=== PATIENT | male | born 1980 | race African-American/Black ===

== ENCOUNTER 2019-02-13 08:16 | Inpatient (IN) | payer OTHER, SELFPAY ==
--- NOTE | 2019-02-13 09:01 | EDPHYS ---
Physician Documentation [facility] Name: Abhinav John Age: 38 yrs Sex: Male : 1980 Arrival Date: 02/13/2019 Time: 08:18 Bed 14 Private MD: ED Physician Biju Garcia HPI: 02/13 08:54 This 38 yrs old Black Male presents to ER via Ambulatory with complaints of Abscess. yolette 08:54 The patient presents with an abscess of the left gluteus raul. Description: The yolette affected area is moderate sized, localized, draining, erythematous, fluctuant. Onset: The symptoms/episode began/occurred 3 day(s) ago. Possible cause(s): unknown. Associated signs and symptoms: Pertinent positives: discharge, drainage, swelling. Severity of symptoms: At their worst the symptoms were moderate. Historical: - Allergies: 08:27 No Known Allergies; hb - PMHx: 08:27 ESRD; HD M-W-F; hb - PSHx: 08:27 HD Fistula - RIGHT FA; hb - Immunization history:: Adult Immunizations up to date. - Social history:: Smoking status: Patient/guardian denies using tobacco. - Ebola Screening: : No symptoms or risks identified at this time. - Family history:: not pertinent. ROS: 08:54 Constitutional: Negative for fever, chills, and weight loss, Eyes: Negative for injury, yolette pain, redness, and discharge, ENT: Negative for injury, pain, and discharge, Neck: Negative for injury, pain, and swelling, Cardiovascular: Negative for chest pain, palpitations, and edema, Respiratory: Negative for shortness of breath, cough, wheezing, and pleuritic chest pain, Abdomen/GI: Negative for abdominal pain, nausea, vomiting, diarrhea, and constipation, Back: Negative for injury and pain, : Negative for injury, bleeding, discharge, and swelling, MS/Extremity: Negative for injury and deformity, Neuro: Negative for headache, weakness, numbness, tingling, and seizure, Psych: Negative for depression, anxiety, suicide ideation, homicidal ideation, and hallucinations, Allergy/Immunology: Negative for hives, rash, and allergies, Endocrine: Negative for neck swelling, polydipsia, polyuria, polyphagia, and marked weight changes, Hematologic/Lymphatic: Negative for swollen nodes, abnormal bleeding, and unusual bruising. 08:54 Skin: Positive for cellulitis, swelling, of the left gluteus raul. Exam: 08:54 Constitutional: This is a well developed, well nourished patient who is awake, alert, yolette and in no acute distress. Head/Face: Normocephalic, atraumatic. Eyes: Pupils equal round and reactive to light, extra-ocular motions intact. Lids and lashes normal. Conjunctiva and sclera are non-icteric and not injected. Cornea within normal limits. Periorbital areas with no swelling, redness, or edema. ENT: Nares patent. No nasal discharge, no septal abnormalities noted. Tympanic membranes are normal and external auditory canals are clear. Oropharynx with no redness, swelling, or masses, exudates, or evidence of obstruction, uvula midline. Mucous membranes moist. Neck: Trachea midline, no thyromegaly or masses palpated, and no cervical lymphadenopathy. Supple, full range of motion without nuchal rigidity, or vertebral point tenderness. No Meningismus. Chest/axilla: Normal chest wall appearance and motion. Nontender with no deformity. No lesions are appreciated. Cardiovascular: Regular rate and rhythm with a normal S1 and S2. No gallops, murmurs, or rubs. Normal PMI, no JVD. No pulse deficits. Respiratory: Lungs have equal breath sounds bilaterally, clear to auscultation and percussion. No rales, rhonchi or wheezes noted. No increased work of breathing, no retractions or nasal flaring. Abdomen/GI: Soft, non-tender, with normal bowel sounds. No distension or tympany. No guarding or rebound. No evidence of tenderness throughout. Back: No spinal tenderness. No costovertebral tenderness. Full range of motion. Male : Normal genitalia with no discharge or lesions. MS/ Extremity: Pulses equal, no cyanosis. Neurovascular intact. Full, normal range of motion. Neuro: Awake and alert, GCS 15, oriented to person, place, time, and situation. Cranial nerves II-XII grossly intact. Motor strength 5/5 in all extremities. Sensory grossly intact. Cerebellar exam normal. Normal gait. Psych: Awake, alert, with orientation to person, place and time. Behavior, mood, and affect are within normal limits. 08:54 Musculoskeletal/extremity: ROM: full active range of motion, full passive range of motion, Circulation is intact in all extremities. Compartment Syndrome exam of affected extremity: is normal. DVT Exam: No signs of deep vein thrombosis. no pain, no swelling, no tenderness, negative Homans' sign noted on exam, no appreciated bluish discoloration, no erythema, no increased warmth, av fistula right upper extremity. 08:54 Skin: abscess, that is moderate sized, cellulitis, that is mild, that is moderate, induration, that is moderate is noted. Vital Signs: 08:24 BP 118 / 86; Pulse 121; Resp 16; Temp 96.8(TE); Pulse Ox 98% on R/A; Pain 8/10; hb 12:00 BP 128 / 92; Pulse 91; Resp 16; Temp 97.9; Pulse Ox 100% on R/A; Pain 8/10; sg MDM: 08:28 [facility] 09[facility]01 Data reviewed: vital signs, nurses notes, lab test result(s), EKG, radiologic studies, yolette plain films. 02/13 08:53 Order name: Basic Metabolic Panel; Complete Time: 11:28 [facility] 02/13 08:53 Order name: CBC with Diff; Complete Time: 11:28 [facility] 02/13 08:53 Order name: LFT's; Complete Time: 11:28 [facility] 02/13 08:53 Order name: Magnesium; Complete Time: 11:28 [facility] 02/13 08:53 Order name: NT PRO-BNP; Complete Time: 11:28 [facility] 02/13 08:53 Order name: PT-INR; Complete Time: 11:28 [facility] 02/13 08:53 Order name: Troponin (emerg Dept Use Only); Complete Time: 11:28 [facility] 02/13 08:53 Order name: XRAY Chest (1 view); Complete Time: 11:28 [facility] 02/13 08:53 Order name: Wound Culture [facility] 02/13 09:10 Order name: Blood Culture Adult (2) 02/13 09:10 Order name: Lactate; Complete Time: 11:28 02/13 09:10 Order name: Procalcitonin; Complete Time: 11:28 02/13 08:53 Order name: EKG; Complete Time: 08:54 [facility] 02/13 08:53 Order name: Cardiac monitoring; Complete Time: 09:11 [facility] 02/13 08:53 Order name: EKG - Nurse/Tech; Complete Time: 09:11 [facility] 02/13 08:53 Order name: IV Saline Lock; Complete Time: 09:12 [facility] 02/13 08:53 Order name: Labs collected and sent; Complete Time: 09:12 [facility] 02/13 08:53 Order name: O2 Per Protocol; Complete Time: 09:12 [facility] 02/13 08:53 Order name: O2 Sat Monitoring; Complete Time: 09: [facility] 02/13 09:17 Order name: CONS Physician Consult EDMS Administered Medications: 09:40 Drug: NS 0.9% 1000 ml Route: IV; Rate: 75 ml/hr; Site: left antecubital; sg 09:40 Drug: Zosyn 3.375 grams Route: IVPB; Infused Over: 60 mins; Site: left antecubital; sg 11:45 Drug: vancoMYCIN 1 grams Route: IVPB; Infused Over: 2 hrs; Site: left antecubital; sg Disposition: 02/13/19 09:00 Hospitalization ordered by Ekaterina Dent for Inpatient Admission. Preliminary diagnosis are Cutaneous abscess of buttock, Fever, unspecified, End stage renal disease, Type 1 diabetes mellitus, Anemia, unspecified, Elevated white blood cell count. - Bed requested for Telemetry/MedSurg (Inpatient). - Status is Inpatient Admission. sg - Condition is Fair. - Problem is new. - Symptoms have improved. UTI on Admission? No Signatures: Dispatcher [employer] EDND Emmanuelle Hernandez RN RN Valdo Sosa RN RN sg Anderson, Corey, MD MD cha Baxter, Heather, RN RN Corrections: (The following items were deleted from the chart) 11:29 09:00 Hospitalization Ordered by Ekaterina Dent MD for Inpatient Admission. Preliminary [facility] diagnosis is Cutaneous abscess of buttock; Fever, unspecified; End stage renal disease; Type 1 diabetes mellitus. Bed requested for Telemetry/MedSurg (Inpatient). Status is Inpatient Admission. Condition is Fair. Problem is new. Symptoms have improved. UTI on Admission? No. [facility] 11:40 11:29 02/13/2019 09:00 Hospitalization Ordered by Ekaterina Dent MD for Inpatient dw Admission. Preliminary diagnosis is Cutaneous abscess of buttock; Fever, unspecified; End stage renal disease; Type 1 diabetes mellitus; Anemia, unspecified; Elevated white blood cell count. Bed requested for Telemetry/MedSurg (Inpatient). Status is Inpatient Admission. Condition is Fair. Problem is new. Symptoms have improved. UTI on Admission? No. yolette 11:58 11:40 02/13/2019 09:00 Hospitalization Ordered by Ekaterina Dent MD for Inpatient dw Admission. Preliminary diagnosis is Cutaneous abscess of buttock; Fever, unspecified; End stage renal disease; Type 1 diabetes mellitus; Anemia, unspecified; Elevated white blood cell count. Bed requested for Telemetry/MedSurg (Inpatient). Status is Inpatient Admission. Condition is Fair. Problem is new. Symptoms have improved. UTI on Admission? No. dw 12:24 11:58 02/13/2019 09:00 Hospitalization Ordered by Ekaterina Dent MD for Inpatient sg Admission. Preliminary diagnosis is Cutaneous abscess of buttock; Fever, unspecified; End stage renal disease; Type 1 diabetes mellitus; Anemia, unspecified; Elevated white blood cell count. Bed requested for Telemetry/MedSurg (Inpatient). Status is Inpatient Admission. Condition is Fair. Problem is new. Symptoms have improved. UTI on Admission? No. dw
--- NOTE | 2019-02-13 09:01 | ER ---
Nurse's Notes [facility] Name: Abhinav John Age: 38 yrs Sex: Male : 1980 Arrival Date: 02/13/2019 Time: 08:18 Bed 14 Private MD: Diagnosis: Cutaneous abscess of buttock;Fever, unspecified;End stage renal disease;Type 1 diabetes mellitus;Anemia, unspecified;Elevated white blood cell count Presentation: 02/13 08:23 Presenting complaint: Abscess on left buttock x 4 days. Pt reports subjective fever and hb vomit x1 3 days ago. Transition of care: patient was not received from another setting of care. Onset of symptoms was February 09, 2019. Risk Assessment: Do you want to hurt yourself or someone else? Patient reports no desire to harm self or others. Care prior to arrival: None. 08:23 Method Of Arrival: Ambulatory hb 08:23 Acuity: KASEY 3 hb 08:35 Initial Sepsis Screen: Does the patient meet any 2 criteria? No. Patient's initial sg sepsis screen is negative. Does the patient have a suspected source of infection? Yes: Skin breakdown/wound. Historical: - Allergies: 08:27 No Known Allergies; hb - PMHx: 08:27 ESRD; HD M-W-F; hb - PSHx: 08:27 HD Fistula - RIGHT FA; hb - Immunization history:: Adult Immunizations up to date. - Social history:: Smoking status: Patient/guardian denies using tobacco. - Ebola Screening: : No symptoms or risks identified at this time. - Family history:: not pertinent. Screenin:35 Abuse screen: Denies threats or abuse. Denies injuries from another. Nutritional sg screening: No deficits noted. Tuberculosis screening: No symptoms or risk factors identified. Never had TB. Fall Risk None identified. Assessment: 08:30 General: Appears in no apparent distress. comfortable, well groomed, well developed, sg well nourished, Behavior is calm, cooperative, appropriate for age. Pain: Complains of pain in left gluteus raul Pain currently is 6 out of 10 on a pain scale. Neuro: Level of Consciousness is awake, alert, obeys commands, Oriented to person, place, time, situation, [employer] are equal bilaterally Moves all extremities. Full function Gait is steady, Speech is normal, Facial symmetry appears normal, Pupils are PERRLA. Cardiovascular: Capillary refill is brisk in bilateral fingers Patient's skin is warm and dry. Chest pain is denied. Respiratory: Airway is patent Respiratory effort is even, unlabored, Respiratory pattern is regular, symmetrical. GI: Abdomen is round non-distended, Reports normal bowel habits, tolerance of fluids, tolerance of food. : No signs and/or symptoms were reported regarding the genitourinary system. EENT: No signs and/or symptoms were reported regarding the EENT system. Derm: Skin is intact, is healthy with good turgor, Skin is dry, Skin is normal, Skin temperature is warm. Musculoskeletal: No signs and/or symptoms reported regarding the musculoskeletal system. 09:30 Reassessment: Patient appears in no apparent distress at this time. Patient and/or sg family updated on plan of care and expected duration. Pain level reassessed. Patient is alert, oriented x 3, equal unlabored respirations, skin warm/dry/pink. Patient states symptoms have not improved. 10:30 Reassessment: Patient appears in no apparent distress at this time. Patient and/or sg family updated on plan of care and expected duration. Pain level reassessed. Patient is alert, oriented x 3, equal unlabored respirations, skin warm/dry/pink. 11:30 Reassessment: Patient appears in no apparent distress at this time. Patient and/or sg family updated on plan of care and expected duration. Pain level reassessed. Patient is alert, oriented x 3, equal unlabored respirations, skin warm/dry/pink. Vital Signs: 08:24 BP 118 / 86; Pulse 121; Resp 16; Temp 96.8(TE); Pulse Ox 98% on R/A; Pain 8/10; hb 12:00 BP 128 / 92; Pulse 91; Resp 16; Temp 97.9; Pulse Ox 100% on R/A; Pain 8/10; sg ED Course: 08:18 Patient arrived in ED. as 08:24 Triage completed. hb 08:25 Arm band placed on. hb 08:28 Valdo Sosa, RN is Primary Nurse. sg 08:28 Biju Garcia MD is Attending Physician. yolette 08:35 Patient has correct armband on for positive identification. Bed in low position. Call sg light in reach. Side rails up X2. manager monitoring on. Pulse ox on. NIBP on. Warm blanket given. Head of bed elevated. 08:57 Ekaterina Dent MD is Hospitalizing Provider. [facility] 09:00 Initial lab(s) drawn, by co, sent to lab. First set of blood cultures drawn. Inserted iw saline lock: 20 gauge in left antecubital area, using aseptic technique. Blood collected. 09:31 XRAY Chest (1 view) In Process Unspecified. EDMS 09:54 Notified ED physician of a critical lab result(s). CRE 16.8. dm5 09:57 EKG done, by avionics systems technician. reviewed by Biju Garcia MD. dt2 12:18 No provider procedures requiring assistance completed. Patient admitted, IV remains in sg place. intact, No redness/swelling at site. Administered Medications: 09:40 Drug: NS 0.9% 1000 ml Route: IV; Rate: 75 ml/hr; Site: left antecubital; sg 09:40 Drug: Zosyn 3.375 grams Route: IVPB; Infused Over: 60 mins; Site: left antecubital; sg 11:45 Drug: vancoMYCIN 1 grams Route: IVPB; Infused Over: 2 hrs; Site: left antecubital; sg Outcome: 09:00 Decision to Hospitalize by Provider. yolette 12:18 Admitted to Med/surg accompanied by tech, via wheelchair, with chart, Report called to joseph Winkler RN 12:18 Condition: stable 12:18 Instructed on the need for admit, safety practices, Demonstrated understanding of follow-up care, wound care. 12:24 Patient left the ED. sg Signatures: Dispatcher [employer] AYDEWV Joyce Reyes, DOMINIQUE FOX dmValdo Matta, RN Biju Mccloud MD MD cha Martinez, Amelia as Williams, Irene, Rubi Bedoya RN, RN RN hb Teague, Danielle dt2
[2019-02-13 09:32] LABS: Absolute Lymphocytes (CBC) 0.8 K/uL (0.7-4.9); Absolute Neutrophil 10.1 K/uL (1.8-8.0); Basophils % 1.1 % (0-1.3); Eosinophils % 2.8 % (0-4.4); Hematocrit 31.5 % (39.6-49.0); Lymphocytes % 6.3 % (15.3-44.8); MPV 7.5 fL (7.6-11.3); RBC Red Blood Cell Count 3.89 M/uL (4.33-5.43)
[2019-02-13 09:33] LABS: Protime INR 1.15
[2019-02-13] MEDS ORDERED: PIPER/TAZO/NS 3.375gm 3.375 GM/100 ML BAG ONE (09:42)
[2019-02-13] MEDS ORDERED: NA CHLORIDE 0.9% 1,000 ML ONE (09:42)
--- NOTE | 2019-02-13 09:45 | RAD REPORT ---
EXAM DESCRIPTION: Jordin Single View02/13/2019 9:31 am CLINICAL HISTORY: Cough COMPARISON: 2013 FINDINGS: The lungs appear clear of acute infiltrate. The heart is normal size IMPRESSION: No acute abnormalities displayed
[2019-02-13 09:52] LABS: ALT/SGPT 8 U/L (12-78); AST/SGOT 6 U/L (15-37); Albumin 2.9 g/dL (3.4-5.0); Alkaline Phosphatase 95 U/L (45-117); BUN Blood Urea Nitrogen 81 mg/dL (7-18); Bicarbonate 21 mmol/L (21-32); Bilirubin Direct < 0.1 mg/dL (0-0.2); Bilirubin Total 0.3 mg/dL (0.2-1.0); Glucose Level 269 mg/dL (74-106); Magnesium 2.4 mg/dL (1.8-2.4); NT PRO-BNP 6451 pg/mL (<125); Potassium 4.8 mmol/L (3.5-5.1); Sodium Level 132 mmol/L (136-145); Troponin (Emerg Dept Use Only) < 0.02 ng/mL (0.0-0.045)
[2019-02-13] MEDS ORDERED: VANCOMYCIN/NS 1 gm 1 GM/250 ML BAG IV ONE (10:00)
--- NOTE | 2019-02-13 12:16 | EKG ---
Test Date: 2019-02-13 Test Time: 09:15:28 Route Salesperson: ALESSANDRA MEASUREMENT RESULTS: Intervals: Rate: 89 AK: 160 QRSD: 80 QT: 356 QTc: 433 [place]: P: 54 AK: 160 QRS: -11 T: 51 INTERPRETIVE STATEMENTS: Normal sinus rhythm Normal ECG Compared to ECG 01/03/2014 08:25:59 T-wave abnormality no longer present Electronically Signed On 02-13-19 12:15:16 CDT by Jaron Ambriz
[2019-02-13] MEDS ORDERED: ONDANSETRON 4 MG/2 ML VIAL IV PRN (12:46)
[2019-02-13] MEDS ORDERED: VANCOMYCIN/NS 1 gm 1 GM/250 ML BAG IV SCH (14:00)
[2019-02-13] MEDS ORDERED: CHLORHEXIDINE GLUCO 4% 120 ML TOP SCH (15:00)
--- NOTE | 2019-02-13 15:24 | P.HP ---
Certification for Inpatient Patient admitted to: Inpatient With expected LOS: >2 Midnights Practitioner: I am a practitioner with admitting privileges, knowledge of patient current condition, hospital course, and medical plan of care. Services: Services provided to patient in accordance with Admission requirements found in Title 42 Section 412.3 of the Code of Federal Regulations Patient History Date of Service: 02/13/19 Reason for admission: Buttock abscess History of Present Illness: This is a 38-year-old male with history of ESRD on hemodialysis, current smoker , insulin-dependent diabetes mellitus who presented to the emergency room percutaneous buttock abscess. Per patient, he noticed this had started to pain on Wednesday of last week, progressively worsened. He then started feeling drainage from that area and the pain was unbearable, which brought him to the emergency room. He does state that he has had a similar abscess in the past, though not as bad. He endorses fevers on Wednesday with chills. Denies any chest pain, shortness of breath, headache, vision changes, other GI or complaints. In the ER, he was found to have a white count of 12.4, creatinine at 16.8 and Procalamine 0.59. Lactic acid was normal at 0.9 and other labs were unremarkable. He was given 1 dose of vancomycin in the ER. I was asked to admit the patient for buttock abscess and ESRD. At the time of my exam, patient was in mild to moderate amount of pain with the abscess, was hemodynamically stable, was alert oriented x3. Allergies No Known Allergies Allergy (Unverified 06/25/12 08:51) - Past Medical/Surgical History Has patient received pneumonia vaccine in the past: Yes Diabetic: Yes -: IDDM -: Kidney disease - Family History Father -: Hypertension, Diabetes Mother History Unknown: Yes - Social History Smoking Status: Current every day smoker Alcohol use: No CD- Drugs: No Caffeine use: No Place of Residence: Home Review of Systems 10-point ROS is otherwise unremarkable Physical Examination - Vital Signs Temperature: 96.8 F Blood Pressure: 118/86 Pulse: 121 Respirations: 16 - Physical Exam General: Alert, Oriented x3, Mild distress HEENT: Atraumatic, PERRLA, Mucous membr. moist/pink, EOMI, Sclerae nonicteric Neck: Supple, 2+ carotid pulse no bruit, No LAD, Without JVD or thyroid abnormality Respiratory: Clear to auscultation bilaterally, Normal air movement Cardiovascular: Regular rate/rhythm, Normal S1 S2 Gastrointestinal: Normal bowel sounds, No tenderness Musculoskeletal: No tenderness Integumentary: No rashes Neurological: Normal gait, Normal speech, Normal strength at 5/5 x4 extr, Normal tone, Normal affect Rectal: Tenderness, Other (Status is noted on the left, with drainage; tender) - Studies Laboratory Data (last 24 hrs) 02/13/19 09:00: PT 13.5 H, INR 1.15 02/13/19 09:00: WBC 12.4 H, Hgb 10.3 L, Hct 31.5 L, Plt Count 357 02/13/19 09:00: Sodium 132 L, Potassium 4.8, BUN 81 H, Creatinine 16.80 H*, Glucose 269 H, Magnesium 2.4, Total Bilirubin 0.3, AST 6 L, ALT 8 L, Alkaline Phosphatase 95 Assessment and Plan - Problems (Diagnosis) (1) Cutaneous abscess of buttock Current Visit: Yes Status: Acute (2) ESRD (end stage renal disease) Current Visit: Yes Status: Chronic (3) Anemia Current Visit: Yes Status: Chronic Qualifiers: Anemia type: due to chronic kidney disease Chronic kidney disease stage: on chronic dialysis Qualified Code(s): N18.6 - End stage renal disease; D63.1 - Anemia in chronic kidney disease; Z99.2 - Dependence on renal dialysis (4) Leukocytosis Current Visit: Yes Status: Acute Qualifiers: Leukocytosis type: unspecified Qualified Code(s): D72.829 - Elevated white blood cell count, unspecified (5) Diabetes mellitus Current Visit: Yes Status: Chronic Qualifiers: Diabetes mellitus type: type 2 Diabetes mellitus alf insulin use: with alf use Diabetes mellitus complication status: with hyperglycemia Qualified Code(s): E11.65 - Type 2 diabetes mellitus with hyperglycemia; Z79.4 - supervisor intermediates (current) use of insulin (6) Hypertension Current Visit: Yes Status: Chronic Qualifiers: Hypertension type: essential hypertension Qualified Code(s): I10 - Essential (primary) hypertension (7) Morbid obesity Current Visit: Yes Status: Chronic - Plan This is a 38-year-old male with: Cutaneous buttock abscess Leukocytosis Tachycardia Start IV vancomycin, pharmacy to dose ren[place]. Dr. Keys, general surgery consulted Pain control Keep NPO after midnight for possible surgical intervention No evidence of sepsis this time. Will continue to monitor for sepsis ESRD on hemodialysis Wednesday, Wednesday, Wednesday Nephrology, Dr. Jameson consulted Patient schedule is Wednesday, Wednesday, Wednesday. He is due for dialysis today. Dialysis per nephrology Anemia, likely anemia of chronic disease H&H stable No evidence of acute bleeding at this time. Will continue to monitor H&H Insulin-dependent diabetes mellitus, type 2 With hyperglycemia Will restart home medications as tolerated He will need strict blood sugar control Hypertension Will restart home medications as tolerated Morbid obesity, BMI 36.3 DVT prophylaxis: Hold for possible surgical intervention tomorrow GI prophylaxis: None Diet: Renal diet, NPO after midnight Disposition: Admit to floor with tele. Pending symptomatic improvement and possible surgical intervention. Discharge Plan: Home - Advance Directives Does patient have a Living Will: No Does patient have a Durable POA for Healthcare: No Time Spent Managing Pts Care (In Minutes): 55
[2019-02-13] MEDS: HYDROCODONE/APAP 5/325 MG TAB PO PRN ×2 (16:26→22:20)
[2019-02-13] MEDS: INSULIN -REGULAR HUMAN 50 UNIT/0.5 ML ML SQ SCH ×2 (16:51→21:00)
--- NOTE | 2019-02-13 19:48 | CON ---
Date of Consultation: 02/13/2019 Reason: Left buttock abscess. History Of Present Illness: The patient is 38-year-old gentleman with end-stage renal disease, who p resents to the emergency room today with approximately 5-day history of left buttock swelling, pain, minimal discharge. He was seen in dialysis for his Wednesday dialysis and he was advised to go to the e mergency room, because he had fever then and he stated that he was feeling okay so he did not go. Th e patient currently is complaining of pain, drainage, swelling. No sore throat, runny nose, cough, h eadaches, or dizziness. No chest pain. Review of Systems: Otherwise unremarkable. Past Medical History: Significant for end-stage renal disease. Past Surgical History: Significant for AV fistula. Allergies: NO ALLERGIES. Social History: He does not smoke. Drinks occasionally. Family History: Noncontributory. Physical Examination: Vital signs: He is tachycardic. Pulse rate is 121, however his temperature 96.8. The remainder of his vital signs are stable. General: He is awake, alert, and oriented x3. Head and Neck: Cranial nerves 2 through 12 are grossly within normal. No neck masses. No JVD. Thr oat clear. Neck is supple. Chest: Clear. Heart: S1 and S2. Abdomen: Soft. Extremities: Neurovascularly intact. Neuro: Nonfocal. Skin: The left buttock region, there is a large approximately 15 x 8 cm area of erythema, warmth, ed deion. There is developing central fluctuance with a small opening and minimal discharge. Cultures resendez ve been done in the ER. There is tenderness, redness, warmth. Laboratory Data: White count is 12.4 with a left shift. INR is 1.15. Chemistry reviewed, his proca lcitonin is 9.59; however, his lactic acid is 0.9. His BUN and creatinine are 81 and 16.8 and potass ium is 4.8. His CO2 is 21. Assessment: A 38-year-old gentleman with multiple medical problems with abscess and cellulitis of th e left buttock. Recommendations: We will take the patient to the OR for incision, drainage, and debridement. The pa tient understands the risks, benefits, and alternatives and agrees to procedure. /MODL Voice ID: [id number] Report ID: [id number]
[2019-02-13] MEDS: MUPIROCIN 2% OINT 22GM TUBE TOP SCH (22:26)
--- NOTE | 2019-02-14 04:19 | PN ---
Date of Progress Note: 02/13/2019 Chief Complaint: End-stage renal disease, on dialysis. Subjective: The patient has been dialyzed 3 times per week on Wednesday, Wednesday, and Wednesday. He cam e to the hospital because of fever. He was found to have lower back abscess, gluteal abscess. A anita gical consultation was obtained for incision and drainage. He has multiple medical problems includin g history of insulin-dependent diabetes mellitus, history of heavy tobacco usage, hypertension. Today, the patient denies chest pain, palpitation. ER workup showed elevated leukocytosis. Procalci tonin was 0.59. The patient was given vancomycin 1 g and is to have debridement of the buttock absce ss. Review of Systems: Constitutional: Denies syncope, has fever. Eyes: Denies vision changes. Ears, Nose, Mouth, and Throat: Denies sore throat, earache. Respiratory: Denies PND, orthopnea. Cardiovascular: Denies chest pain, palpitation. GI: Denies nausea, vomiting. : Denies dysuria, hematuria. Musculoskeletal: Denies muscle aches or joint swelling. All other systems reviewed and all are negative. Past Medical History: Diabetes mellitus, end-stage renal disease, anemia, CKD, renal osteodystrophy, hypertension, diabetic neuropathy and nephropathy. Family History: Father; diabetes, hypertension. Mother; hypertension. Social History: Denies tobacco, alcohol, or illicit drugs. Physical Examination: Vital Signs: Temperature is 96.8, blood pressure 118/86, heart rate 119, and respiratory rate 16. General: The patient is awake, alert, and oriented, not in acute distress. Eyes: Anicteric sclerae. EOMI. Ears, Nose, Mouth and Throat: Oral mucosa moist. No pallor. Neck: Supple. No JVD. No bruits. Lungs: Clear to auscultation bilaterally. No rhonchi. No wheezing. Heart: S1, S2. Abdomen: Soft. Benign, nontender. Extremities: Slight edema. Laboratory Data: WBC 12.4, hemoglobin 10.3, hematocrit 31.5, and platelet count 357,000. Sodium 132 , potassium 4.8, BUN 81, and creatinine 16.8. Impression And Plan: 1.End-stage renal disease. Continue dialysis 3 times per week. Next dialysis on Wednesday. Today, he had dialysis with ultrafiltration. Blood pressure was stable during dialysis. 2.Anemia in CKD. Continue YOLANDE. Monitor hemoglobin level. 3.Leukocytosis. Continue broad-spectrum antibiotics. Surgical consultation is obtained for incisio n and drainage. 4.Cutaneous abscess of the buttock. Continue treatment with antibiotics and wound care. UMBERTO/BENY Voice ID: [id number] Report ID: [id number]
[2019-02-14] MEDS: HYDROCODONE/APAP 5/325 MG TAB PO PRN ×4 (04:26→23:55)
[2019-02-14 06:01] LABS: Absolute Lymphocytes (CBC) 0.8 K/uL (0.7-4.9); Absolute Monocytes 0.8 K/uL (0.1-1.3); Absolute Neutrophil 7.1 K/uL (1.8-8.0); Basophils % 0.9 % (0-1.3); Eosinophils % 3.1 % (0-4.4); Hematocrit 29.5 % (39.6-49.0); Lymphocytes % 9.2 % (15.3-44.8); MPV 6.6 fL (7.6-11.3); Monocytes % 8.6 % (3.3-12.3); RBC Red Blood Cell Count 3.68 M/uL (4.33-5.43)
[2019-02-14 06:06] LABS: AST/SGOT 4 U/L (15-37); Albumin 2.7 g/dL (3.4-5.0); Alkaline Phosphatase 78 U/L (45-117); BUN Blood Urea Nitrogen 49 mg/dL (7-18); Bicarbonate 25 mmol/L (21-32); Bilirubin Total 0.3 mg/dL (0.2-1.0); Glucose Level 202 mg/dL (74-106); Potassium 4.1 mmol/L (3.5-5.1); Protein, Total 7.7 g/dL (6.4-8.2); Sodium Level 134 mmol/L (136-145)
[2019-02-14 06:11] LABS: ALT/SGPT < 6 U/L (12-78)
[2019-02-14] MEDS: INSULIN -REGULAR HUMAN 50 UNIT/0.5 ML ML SQ SCH ×4 (08:37→21:12)
[2019-02-14] MEDS: ENOXAPARIN 30 MG/0.3 ML SQ SCH (08:37)
[2019-02-14] MEDS: MUPIROCIN 2% OINT 22GM TUBE TOP SCH ×2 (08:38→20:54)
--- NOTE | 2019-02-14 12:49 | P.PN ---
Subjective Date of Service: 02/14/19 Chief Complaint: Buttock abscess Subjective: No new changes pt with ESRD , presented for Gluteal abscess scheduled for I& D today will resume epo monitor Vanc level Physical Examination - Vital Signs Temperature: 98 F Blood Pressure: 135/77 Pulse: 91 Respirations: 20 Pulse Ox (%): 98 - Physical Exam General: In no apparent distress, Oriented x3 HEENT: Atraumatic, Normocephalic Neck: Supple, Without JVD or thyroid abnormality Respiratory: Clear to auscultation bilaterally, Normal air movement Cardiovascular: No edema, Normal pulses, Regular rate/rhythm, Normal S1 S2 Gastrointestinal: Normal bowel sounds Integumentary: No rashes Assessment And Plan - Current Problems (Diagnosis) (1) Cutaneous abscess of buttock Current Visit: Yes Status: Acute (2) Diabetes mellitus Current Visit: Yes Status: Chronic Qualifiers: Diabetes mellitus type: type 2 Diabetes mellitus mcfp insulin use: with mcfp use Diabetes mellitus complication status: with hyperglycemia Qualified Code(s): E11.65 - Type 2 diabetes mellitus with hyperglycemia; Z79.4 - MCFP (current) use of insulin (3) ESRD (end stage renal disease) Current Visit: Yes Status: Chronic - Plan Impression And Plan: ESRD MWF via Rt AVF HD MWF renal dose meds Anemia of CKD and active inflammation will start YOLANDE Gluteal abscess plan for I&D today DM as per PCP HTN controlled MBD hold binders if npo
[2019-02-14] MEDS ORDERED: GLUCAGON 1 MG/VIAL IM PRN (14:34)
[2019-02-14] MEDS ORDERED: NA CHLORIDE 0.9% 500 ML ONE (14:34)
[2019-02-14] MEDS ORDERED: D50W 25 GM/50 ML SYRINGE IV PRN (14:34)
[2019-02-14] MEDS ORDERED: BUPIVACAINE 0.5% PF 10 ML VIAL ONE (16:43)
[2019-02-14] MEDS ORDERED: FENTANYL CITR 100 MCG/2 ML ONE ×2 (16:45→17:22)
[2019-02-14] MEDS ORDERED: LIDOCAINE 1% MPF 5 ML VIAL ONE (16:45)
[2019-02-14] MEDS ORDERED: MIDAZOLAM HCL 2 MG/2 ML INJ ONE (16:45)
[2019-02-14] MEDS ORDERED: PROPOFOL 200 MG/20 ML VIAL IV ONE (16:45)
[2019-02-14] MEDS ORDERED: KETOROLAC 30 MG/ML INJ ONE (17:23)
[2019-02-14] MEDS ORDERED: ONDANSETRON 4 MG/2 ML VIAL ONE (17:23)
[2019-02-14] MEDS ORDERED: CEFAZOLIN SODIUM 1 GM/VIAL ONE (17:25)
[2019-02-14] MEDS ORDERED: NS 0.9% VIAL 10 ML ONE (17:25)
--- NOTE | 2019-02-14 17:33 | P.OP ---
Preoperative diagnosis: Left Buttock abscess Postoperative diagnosis: same Primary procedure: I and D and Debridement Left Buttock Abscess Anesthesia: gen Estimated blood loss: min Specimen: Pus Findings: as above Complications: None Transferred to: Recovery Room Condition: Good
[2019-02-14] MEDS ORDERED: HYDROMORPHONE HCL 1 MG/ML INJ IV PRN (17:52)
--- NOTE | 2019-02-14 19:10 | PN ---
Date of Progress Note: 02/14/2019 Subjective: The patient seen and examined. Chart reviewed and case discussed with RN and Dr. Keys. The patient awaiting I and D for abscess. Still having some pain. Medications: List reviewed. Physical Examination: Vital Signs: Temperature 98, heart rate 91, blood pressure 135/77, respirations 20, O2 98% on room air. General: Awake, alert and oriented x3, ill-appearing obese male. BMI 36. CV: S1, S2. Regular rate and rhythm. Peripheral pulse is present. Respiratory: Moving air well bilaterally. No wheezing or stridor. Gastrointestinal: Abdomen is soft, nontender, nondistended. Positive bowel sounds. Extremities: No clubbing, cyanosis, or edema. Neurologic: Nonfocal. Skin: Gluteal abscess on the left. Laboratory Data: Sodium 134, potassium 4.1, chloride 96, CO2 25, BUN 49, creatinine 12.1, glucose 202, calcium 8.5, AST 4, ALT less than 6, albumin 2.7. WBC 9.1, H and H 9.8 and 29.5, platelets 281. Wound cultures pending at this time. Blood cultures show no growth to date. Assessment And Plan: A 38-year-old male with: 1. Cutaneous abscess of the buttock, left gluteal region. We will continue with vancomycin. Continue pain control. The patient going for I and D today by Dr. Keys. 2. End-stage renal disease, on hemodialysis Wednesday, Wednesday, Wednesday. The patient has been dialyzed yesterday. Appreciate Nephrology input. 3. Anemia of chronic disease. We will monitor H and H and transfuse as needed secondary to chronic kidney disease, on dialysis. 4. Diabetes mellitus type 2 with hyperglycemia with long-term use of insulin. We will continue sliding scale insulin and monitor blood glucose levels. 5. Essential hypertension, stable. 6. Morbid obesity. BMI 36.3. Plan: Continue antibiotics. Follow up on cultures. Anticipate surgery today. /BENY Voice ID: [id number] Report ID: [id number] MTDD
--- NOTE | 2019-02-15 02:40 | OP ---
Date of Procedure: 02/14/2019 Surgeon: Michael Keys MD Preoperative Diagnosis: Left buttock abscess. Postoperative Diagnosis: Left buttock abscess. Procedure: Incision and drainage and debridement of left buttock abscess. Estimated Blood Loss: Minimal. Specimen: Pus. Findings: As above. Anesthesia: General. Complications: None. Disposition: The patient tolerated the procedure well in stable condition, taken to recovery in good general condition. Description Of Procedure: The patient was brought to the OR and placed in supine position. General anesthesia was begun. The patient was placed in the right lateral position, prepped and draped in ua sterile fashion. Marcaine 0.5% was infiltrated locally. A 15-blade was used to make approximate ly a 6-cm incision over the most fluctuant part of the abscess. Subcutaneous tissue was divided. De ep to the subcutaneous tissue, pus under pressure was evacuated. Loculation was broken up. Necrotic tissue was debrided. It was extended deep into the deep subcutaneous tissue, both inferiorly superi carson, laterally, and medially. After adequate dissection was done, wound was irrigated. Bleeding wa s controlled cautery. Wet-to-dry normal saline dressing change was applied. The patient tolerated the procedure in stable condition and taken to re covery in good general condition. /MODL Voice ID: [id number] Report ID: [id number]
[2019-02-15] MEDS: HYDROCODONE/APAP 5/325 MG TAB PO PRN ×3 (05:58→20:45)
[2019-02-15 06:40] LABS: Absolute Lymphocytes (CBC) 1.2 K/uL (0.7-4.9); Absolute Monocytes 0.7 K/uL (0.1-1.3); Absolute Neutrophil 5.7 K/uL (1.8-8.0); Basophils % 1.1 % (0-1.3); Eosinophils % 4.3 % (0-4.4); Hematocrit 29.4 % (39.6-49.0); Lymphocytes % 14.5 % (15.3-44.8); MPV 6.9 fL (7.6-11.3); Monocytes % 9.1 % (3.3-12.3); RBC Red Blood Cell Count 3.66 M/uL (4.33-5.43)
[2019-02-15] MEDS ORDERED: PANTOPRAZOLE 40MG TABLET PO ONE (07:00)
[2019-02-15 08:11] LABS: Phosphorus 8.3 mg/dL (2.5-4.9); Potassium 4.8 mmol/L (3.5-5.1)
[2019-02-15] MEDS: ENOXAPARIN 30 MG/0.3 ML SQ SCH (08:33)
[2019-02-15] MEDS: MUPIROCIN 2% OINT 22GM TUBE TOP SCH ×2 (08:33→20:50)
[2019-02-15] MEDS: INSULIN -REGULAR HUMAN 50 UNIT/0.5 ML ML SQ SCH ×4 (08:34→20:58)
[2019-02-15] MEDS ORDERED: EPOETIN ALFA 10,000 UNIT/ML VIAL SQ SCH (10:00)
[2019-02-15] MEDS ORDERED: CEFEPIME 1 GM/VIAL IV SCH (13:50)
[2019-02-15 15:00] VITALS: BMI 35.8
--- NOTE | 2019-02-15 16:22 | PN ---
Date of Progress Note: 02/15/2019 Subjective: The patient was admitted with buttock abscess. Physical Examination: Vital Signs: Blood pressure 125/71, pulse of 80. Chest: Clear to auscultation. Heart: S1-S2 regular. Abdomen: Soft, nontender. Extremities: Trace edema. Laboratory Data: H and H 9.6/29.4. Sodium 134, potassium 4.8, bicarb 25, BUN 64, creatinine 14, ai cium 9, phosphorus 8.3. Current Medications: The patient on include, 1.Lovenox. 2.Epogen. 3.Zofran. 4.Pantoprazole. Assessment And Plan: 1.End-stage renal disease. We will maintain the patient on dialysis Wednesday, Wednesday, and Wednesday. 2.Secondary hyperparathyroidism. I am going to resume the patient on Renvela. 3.Anemia of chronic kidney disease. We will resume Epogen for the patient. Next buttocks abscess. Continue current medication. Follow up with primary. We will follow up culture. 4.Diabetes, as by primary. HILARIO/BENY Voice ID: [id number] Report ID: [id number]
--- NOTE | 2019-02-15 16:28 | PN ---
Date of Progress Note: 02/15/2019 Subjective: Patient is awake, alert, feels better. Vital signs stable, afebrile. White count is 8. 1. The left shift has improved and his cultures are pending as far as identification but they are gr owing gram-negative rods and first culture that was done on the and the OR cultures are still pe nding. Dressing is clean, dry, intact. Assessment: Status post incision and drainage, left buttock abscess. Recommendations: Continue IV antibiotics. Await cultures and adjust antibiotics accordingly. Wound care as ordered. Upon discharge, patient can follow up [facility]. /MODL Voice ID: [id number] Report ID: [id number]
--- NOTE | 2019-02-15 17:22 | PN ---
Subjective: The patient is seen and examined, chart reviewed and case discussed with Dr. Keys. The patient is doing well. His pain is well controlled. Medications: List reviewed. Objective: Vital Signs: Temperature 98, heart rate 87 blood pressure 136/73, respirations 20, O2 97 % on room air. GENERAL: Awake, alert, oriented x3. No acute distress. Obese male. BMI 35. CV: S1, S2. Regular rate and rhythm. Peripheral pulses present. Respiratory: moving air well bilaterally. No wheezing or stridor. Gastrointestinal: Abdomen is soft, nontender, nondistended. Positive bowel sounds. Extremities: No clubbing, cyanosis, or edema. Neurologic: Nonfocal. SKIN: Gluteal abscess, status post I and D, bandaged. Laboratory Data: Sodium 134, potassium 4.8, chloride 96, CO2 25, BUN 64, creatinine 14.8, glucose 16 4, calcium 9, phosphorus 8.3. WBC 8.1, H and H 9.6, 29.4, platelets 326, neutrophils 71%. Blood cul ture show no growth to date. Wound culture from the abscess showing 2+ gram-negative rods, from body fluid is pending. Assessment: A 38-year-old male with: 1.Cutaneous abscess of the buttock, left gluteal region, status post incision and drainage. We will continue broad-spectrum intravenous antibiotics. The patient is on vancomycin. Cultures growing gr am-negative rods from the wound. We will add gram-negative coverage. 2.End-stage renal disease, on hemodialysis Wednesday, Wednesday, Wednesday. Nephrology on board. The pat ient to be dialyzed again today. 3.Anemia of chronic disease. Monitor H and H and transfuse as needed. Hemoglobin stable around 9.6 . Likely due to chronic kidney disease, on dialysis. 4.Diabetes mellitus type 2 with hyperglycemia with long-term use of insulin. We will continue slidi ng scale insulin and monitor Accu-Cheks. 5.Essential hypertension, stable, on home medications. 6.Morbid obesity. Body mass index 36. Plan: We will adjust antibiotics, follow up on cultures. Discharge once ID and sensitivity availabl e. SA/MODL Voice ID: [id number] Report ID: [id number]
[2019-02-15] MEDS: SEVELAMER CARBONATE 800 MG TABLET PO SCH (17:45)
[2019-02-15] MEDS: CEFEPIME/SWI 1gm 10 ML IVP SCH (17:45)
[2019-02-16] MEDS: HYDROCODONE/APAP 5/325 MG TAB PO PRN ×2 (05:22→12:00)
[2019-02-16 06:03] LABS: Absolute Monocytes 0.7 K/uL (0.1-1.3); Absolute Neutrophil 4.2 K/uL (1.8-8.0); Basophils % 1.3 % (0-1.3); Eosinophils % 5.1 % (0-4.4); Hematocrit 28.5 % (39.6-49.0); Lymphocytes % 15.6 % (15.3-44.8); MPV 7.7 fL (7.6-11.3); Monocytes % 10.9 % (3.3-12.3); RBC Red Blood Cell Count 3.48 M/uL (4.33-5.43)
[2019-02-16] MEDS: INSULIN -REGULAR HUMAN 50 UNIT/0.5 ML ML SQ SCH ×2 (08:41→12:22)
[2019-02-16] MEDS: MUPIROCIN 2% OINT 22GM TUBE TOP SCH (08:41)
[2019-02-16] MEDS: CEFEPIME/SWI 1gm 10 ML IVP SCH (08:42)
[2019-02-16] MEDS: ENOXAPARIN 30 MG/0.3 ML SQ SCH (08:42)
[2019-02-16] MEDS: SEVELAMER CARBONATE 800 MG TABLET PO SCH ×2 (08:42→12:22)
[2019-02-16 09:46] VITALS: O2SAT 99
[2019-02-16 14:58] VITALS: BP 140/66; TEMP 98.1
--- NOTE | 2019-02-16 18:56 | P.PN ---
Subjective Date of Service: 02/16/19 Chief Complaint: Buttock abscess Subjective: No new changes pt with ESRD , presented for Gluteal abscess S/P I&D wound culture Morganella sensitive to Levofloxacin cleared for discharge from nephrology point of view Physical Examination - Vital Signs Temperature: 98.1 F Blood Pressure: 140/66 Pulse: 91 Respirations: 17 Pulse Ox (%): 100 - Physical Exam General: In no apparent distress, Oriented x3 HEENT: Atraumatic Neck: Supple, JVD not distended, Without JVD or thyroid abnormality Respiratory: Clear to auscultation bilaterally Cardiovascular: No edema, Regular rate/rhythm, Normal S1 S2, No rubs, No murmurs Gastrointestinal: Normal bowel sounds, Soft and benign Assessment And Plan - Current Problems (Diagnosis) (1) Cutaneous abscess of buttock Status: Acute (2) Diabetes mellitus Status: Chronic Qualifiers: Diabetes mellitus type: type 2 Diabetes mellitus continuous churn buttermaker insulin use: with correction use Diabetes mellitus complication status: with hyperglycemia Qualified Code(s): E11.65 - Type 2 diabetes mellitus with hyperglycemia; Z79.4 - shelter (current) use of insulin (3) ESRD (end stage renal disease) Status: Chronic - Plan Impression And Plan: ESRD MWF via Rt AVF HD MWF renal dose meds Anemia of CKD and active inflammation On YOLANDE Gluteal abscess S/P I&D today wound culture Morganella sensitive to levofloxacin DM as per PCP HTN controlled MBD cont binders
--- NOTE | 2019-02-16 19:42 | PN ---
Date of Progress Note: 02/16/2019 Subjective: The patient is awake, alert. No complaint. Bowels are stable. Afebrile. Cultures reviewed, Morganella Morganii is growing. White count is normal. Wound is clean. Assessment: Status post I and D and debridement of left buttock abscess. Recommendations: The patient will be given vancomycin and either oral Cipro or Levaquin per the [facility] l service. Wound care is ordered. Follow up in the wound clinic in 1-2 weeks. SAIMA/BENY Voice ID: [id number] Report ID: [id number]
--- NOTE | 2019-02-17 01:58 | DS ---
Date of Discharge: 02/16/2019 Consultants: Dr. Jameson with Nephrology, Dr. Joy with Nephrology, Dr. Keys with General [facility]. Procedures: On 02/14/2019, I and D, debridement of left buttock abscess. Admitting Diagnoses: 1.Cutaneous abscess of the buttock. 2.End-stage renal disease, on hemodialysis. 3.Anemia due to chronic kidney disease, on dialysis. 4.Diabetes mellitus type 2 with long-term use of insulin with hyperglycemia. 5.Essential hypertension. 6.Obesity, BMI 35.5. Discharge Diagnoses: 1.Cutaneous abscess of the buttock, left gluteal region, status post I and D secondary to Morganella . 2.End-stage renal disease, on hemodialysis. 3.Anemia of chronic disease secondary to end-stage renal disease. 4.Diabetes mellitus type 2 with hyperglycemia with long-term use of insulin, stable. 5.Essential hypertension, stable. 6.Obesity, BMI 36. Hospital Course: The patient is a 38-year-old male on dialysis, has diabetes, comes in with a percut aneous buttock abscess. The patient was started on IV antibiotics. He did have an elevated white co unt. Procalcitonin was borderline. Cultures were obtained. Blood cultures remained negative. Nick jeffers wound culture from the abscess showed Morganella. Dr. Keys was consulted and the patient went for I and D and had significant improvement in his symptoms. White count was normalized. The patien t remained afebrile. We continued his dialysis. His mold press operator was also consulted. The patient d id well over the course of the hospital stay. His electrolytes remained stable. He was able to cont inue his dialysis. The patient was then cleared from a surgery standpoint and was sent home in a sta ble condition. Activity: As tolerated. Medications: As per medication reconciliation list. Finish off course of Levaquin for the abscess. Followup: Follow up with primary care physician in 2-3 days. Follow up with surgeon, Dr. Keys, in 10 days. Follow up with mold press operator, Dr. Jameson, in 2 weeks. Keep dialysis appointments as sched uled. Return to ER for worsening condition. Wet-to-dry dressings as per Dr. Keys's recommendations . Diet: Renal. Activity: As tolerated. Physical Examination: General: Awake, alert, oriented x3. No acute distress. Obese male. CV: S1, S2. Peripheral pulses present. Respiratory: Moving air well bilaterally. No wheezing. Gastrointestinal: Abdomen is soft, nontender, nondistended. Positive bowel sounds. Extremities: No clubbing, cyanosis, edema. Neurologic: Nonfocal. Skin: Left gluteal region wound clean, dry, intact. Total time spent discharging the patient was 35 minutes. /BENY Voice ID: [id number] Report ID: [id number]
[2019-02-17 05:29] LABS: HBsAG Nonreactive (Nonreactive)
== END 2019-02-16 15:16 | disposition home or self-care (01) | DRG 602 ==
LOC: ER 08:16 → ERHOLD 09:14 → 2ND 12:14
PROVIDERS: ADMIT Family Medicine; ATTEND Family Medicine
PROC: 5A1D70Z Performance of Urinary Filtration, Intermittent, Less than 6 Hours Per Day (ICD-10-PCS; 2019-02-13)
PROC: 0J990ZX Drainage of Buttock Subcutaneous Tissue and Fascia, Open Approach, Diagnostic (ICD-10-PCS; principal; 2019-02-14 12:30)
PROC: 5A1D70Z Performance of Urinary Filtration, Intermittent, Less than 6 Hours Per Day (ICD-10-PCS; 2019-02-15)
DX: L02.31 Cutaneous abscess of buttock (principal); N18.6 End stage renal disease; I12.0 Hypertensive chronic kidney disease with stage 5 chronic kidney disease or end stage renal disease; B96.89 Other specified bacterial agents as the cause of diseases classified elsewhere; E11.22 Type 2 diabetes mellitus with diabetic chronic kidney disease; E11.65 Type 2 diabetes mellitus with hyperglycemia; Z99.2 Dependence on renal dialysis; Z79.4 Long term (current) use of insulin; D63.1 Anemia in chronic kidney disease; E66.9 Obesity, unspecified; Z68.35 Body mass index [BMI] 35.0-35.9, adult
CPT/HCPCS: 36415; 71045; 80048; 80053; 80076; 82962; 83605; 83735; 83880; 84100; 84145; 84484; 85025; 85610; 86704; 86706; 86803; 87040; 87070; 87075; 87077; 87186; 87205; 87340; 90935; 93005; 94760; 96374; 96375; 99285; J0690; J0692; J1650; J2250; J2405; J2543; J2704; J3010; J3370; J7030; Q4081

== ENCOUNTER 2019-02-16 15:59 | Inpatient (IN) | payer OTHER, SELFPAY ==
--- NOTE | 2019-02-16 16:39 | EDPHYS ---
Physician Documentation [facility] Name: Abhinav John Age: 38 yrs Sex: Male : 1980 Arrival Date: 02/16/2019 Time: 16:07 Bed 5 Private MD: ED Physician Glynn Elizalde HPI: 02/16 16:30 This 38 yrs old Black Male presents to ER via Unassigned with complaints of Post jr8 Surgical Bleeding. 16:30 The affected area is on the buttocks. Patient stated that he was admitted for abscess jr8 of the left buttock. Was discharged today. Carey something wet going down his pants on the way home. Saw that it was blood. Made it home and was trying to control it there but stated that it was too much blood. Patient had bled through bandages that was placed upon arrival in ED. Historical: - Allergies: 16:32 No Known Allergies; ss - PMHx: 16:32 ESRD; HD M-W-F; ss - PSHx: 16:32 HD Fistula - RIGHT FA; I\T\D (R buttock); ss - Immunization history:: Adult Immunizations up to date. - Social history:: Smoking status: Patient uses tobacco products, smokes one-half pack cigarettes per day. - Ebola Screening: : Patient denies exposure to infectious person Patient denies travel to an Ebola-affected area in the 21 days before illness onset. ROS: 16:30 Eyes: Negative for injury, pain, redness, and discharge, ENT: Negative for injury, jr8 pain, and discharge, Neck: Negative for injury, pain, and swelling, Cardiovascular: Negative for chest pain, palpitations, and edema, Respiratory: Negative for shortness of breath, cough, wheezing, and pleuritic chest pain, Abdomen/GI: Negative for abdominal pain, nausea, vomiting, diarrhea, and constipation, Back: Negative for injury and pain, MS/Extremity: Negative for injury and deformity, Neuro: Negative for headache, weakness, numbness, tingling, and seizure. 16:30 Skin: Positive for open wound left buttock . Exam: 16:30 Eyes: Pupils equal round and reactive to light, extra-ocular motions intact. Lids and jr8 lashes normal. Conjunctiva and sclera are non-icteric and not injected. Cornea within normal limits. Periorbital areas with no swelling, redness, or edema. ENT: Nares patent. No nasal discharge, no septal abnormalities noted. Tympanic membranes are normal and external auditory canals are clear. Oropharynx with no redness, swelling, or masses, exudates, or evidence of obstruction, uvula midline. Mucous membranes moist. Neck: Trachea midline, no thyromegaly or masses palpated, and no cervical lymphadenopathy. Supple, full range of motion without nuchal rigidity, or vertebral point tenderness. No Meningismus. Cardiovascular: Regular rate and rhythm with a normal S1 and S2. No gallops, murmurs, or rubs. Normal PMI, no JVD. No pulse deficits. Respiratory: Lungs have equal breath sounds bilaterally, clear to auscultation and percussion. No rales, rhonchi or wheezes noted. No increased work of breathing, no retractions or nasal flaring. Abdomen/GI: Soft, non-tender, with normal bowel sounds. No distension or tympany. No guarding or rebound. No evidence of tenderness throughout. Back: No spinal tenderness. No costovertebral tenderness. Full range of motion. MS/ Extremity: Pulses equal, no cyanosis. Neurovascular intact. Full, normal range of motion. Neuro: Awake and alert, GCS 15, oriented to person, place, time, and situation. Cranial nerves II-XII grossly intact. Motor strength 5/5 in all extremities. Sensory grossly intact. Cerebellar exam normal. Normal gait. 16:30 Skin: Patient has approximately 5 cm surgical incision noted to left medial buttock down through the subcutaneous tissues. Slow constant bleeding noted. No arterial bleeding noted upon examination. Tissue otherwise healthy looking. No surrounding erythema noted . Vital Signs: 16:32 Resp 19; Weight 119.75 kg; Height 6 ft. 3 in. (190.50 cm); Pain 7/10; ss 16:33 BP 120 / 61; Pulse 89; Resp 18; Temp 98.6(O); Pulse Ox 100% on R/A; dh3 17:30 BP 122 / 62; Pulse 88; Resp 17; Pulse Ox 99% on R/A; sg 19:00 BP 132 / 74; Pulse 85; Resp 18; Pulse Ox 98% on R/A; Pain 0/10; aa1 19:49 BP 118 / 62; Pulse 83; Resp 16; Temp 98.5; Pulse Ox 96% on R/A; aa1 16:32 Body Mass Index 33.00 (119.75 kg, 190.50 cm) ss Procedures: 16:30 Performed Wound packing. Patient packed with sterile 4x4 gauze to control bleeding. jr8 Pressure dressing applied . MDM: 16:28 Patient medically screened. jr8 16:30 Data reviewed: vital signs, nurses notes, lab test result(s). Data interpreted: Pulse jr8 oximetry: on room air is 100 %. Interpretation: normal. Counseling: I had a detailed discussion with the patient and/or guardian regarding: the historical points, exam findings, and any diagnostic results supporting the discharge/admit diagnosis, lab results, the need for further work-up and treatment in the hospital. Physician consultation: Cesar Shetty MD was called at 16:37, was contacted at 16:37, regarding admission, to the telemetry unit. consult, patient's condition, and will see patient. ED course: Dr. Keys consulted and will see patient in the hospital. Will take him back to surgery tomorrow if bleeding controlled . 18:25 ED course: Reevaluated patient. No blood beyond bandage. Seems to be well controlled at [facility] this point. Will reevaluate again here in a bit before letting him go up to room . 02/16 16:23 Order name: CBC with Diff; Complete Time: 16:58 [facility] 02/16 16:23 Order name: T\T\S [facility] 02/16 16:23 Order name: Basic Metabolic Panel; Complete Time: 17:13 [facility] 02/16 16:23 Order name: IV; Complete Time: 16:35 [facility] 02/16 18:26 Order name: PT-INR [facility] 02/16 18:37 Order name: Protime (+INR); Complete Time: 18:40 EDMS Administered Medications: No medications were administered Disposition: 02/17 07:16 Co-signature as Attending Physician, Glynn Elizalde MD I agree with the assessment and kdr plan of care. Disposition: 02/16/19 16:38 Hospitalization ordered by Cesar Shetty for Observation. Preliminary diagnosis is Post surgical wound bleeding . - Bed requested for Telemetry/MedSurg (observation). - Status is Observation. aa1 - Condition is Fair. - Problem is new. - Symptoms have improved. UTI on Admission? No Signatures: Dispatcher [employer] EDMS Olimpia Luna RN RN aa1 Glynn Elizalde MD MD [facility] Sierra Amin RN RN Dom Luna PA PA jr8 Destin Arlen kj1 Corrections: (The following items were deleted from the chart) 02/16 18:25 16:38 Hospitalization Ordered by Cesar Shetty MD for Observation. Preliminary diagnosis kj1 is Post surgical wound bleeding . Bed requested for Telemetry/MedSurg (observation). Status is Observation. Condition is Fair. Problem is new. Symptoms have improved. UTI on Admission? No. jr8 19:54 18:25 02/16/2019 16:38 Hospitalization Ordered by Cesar Shetty MD for Observation. aa1 Preliminary diagnosis is Post surgical wound bleeding . Bed requested for Telemetry/MedSurg (observation). Status is Observation. Condition is Fair. Problem is new. Symptoms have improved. UTI on Admission? No. kj1
--- NOTE | 2019-02-16 16:39 | ER ---
Nurse's Notes [facility] Name: Abhinav John Age: 38 yrs Sex: Male : 1980 Arrival Date: 02/16/2019 Time: 16:07 Bed 5 Private MD: Diagnosis: Post surgical wound bleeding Presentation: 02/16 16:00 Presenting complaint: Patient states: Recently discharged from [facility] after I\\T\\D procedure. Pt reports that shortly after arriving home, he noticed heavy bleeding coming from his incision. Unknown amount at home, however patient described amount being "large". Transition of care: patient was not received from another setting of care. Onset of symptoms was February 16, 2019. Risk Assessment: Do you want to hurt yourself or someone else? Patient reports no desire to harm self or others. Initial Sepsis Screen: Does the patient have a suspected source of infection? No. Patient's initial sepsis screen is negative. Care prior to arrival: None. 16:00 Method Of Arrival: Ambulatory ss 16:00 Acuity: KASEY 1 ss 16:[address] Shetty notified that pt was back in the ED. I asked Dr. Shetty if he wanted to dm5 evaluate the pt since he had just been discharged or if he wanted the pt to be seen by the ED Physician. Dr. Shetty stated he wanted the pt to be seen by the ED Physician and the surgeon to be called. 16:[address] Keys notified that the pt was in the ED. dm5 Historical: - Allergies: 16:32 No Known Allergies; ss - PMHx: 16:32 ESRD; HD M-W-F; ss - PSHx: 16:32 HD Fistula - RIGHT FA; I\\T\\D (R buttock); ss - Immunization history:: Adult Immunizations up to date. - Social history:: Smoking status: Patient uses tobacco products, smokes one-half pack cigarettes per day. - Ebola Screening: : Patient denies exposure to infectious person Patient denies travel to an Ebola-affected area in the 21 days before illness onset. Screenin:41 Abuse screen: Denies threats or abuse. Denies injuries from another. Nutritional ss screening: No deficits noted. Tuberculosis screening: Never had TB. Assessment: 16:00 Reassessment: TOBY Reis, DOMINIQUE Lyle, Nicole, RN and Sierra, RN at bedside. Dom TOBY Luna attempting to locate bleeding vessel in incision. Direct Pressure applied which seems to cease bleeding effectively. Dr. Shetty and Dr. Keys notified by DOMINIQUE Cook. 16:15 Reassessment: Dr. Elizalde at bedside with TOBY Meza evaluating patient and ss discussing plan of care. Respirations remain even and unlabored. Bleeding controlled at this time. Pt is awake and alert. 16:40 General: Appears in no apparent distress. well developed, well nourished, clothing sg saturated with bright red blood, pt removed from clothing and cleaned, placed in clean gown. Behavior is cooperative, appropriate for age, quiet. Pain: Complains of pain in gluteal cleft Quality of pain is described as throbbing. Neuro: Level of Consciousness is awake, alert, obeys commands, Oriented to person, place, time, situation, Slitting Machine Operator are equal bilaterally Moves all extremities. Full function Gait is steady, Speech is normal, Facial symmetry appears normal, Pupils are PERRLA. Cardiovascular: Heart tones S1 S2 present Capillary refill is brisk in bilateral fingers Patient's skin is warm and dry. Chest pain is denied. Respiratory: Airway is patent Respiratory effort is even, unlabored, Respiratory pattern is regular, symmetrical. GI: Abdomen is round non-distended, Bowel sounds present X 4 quads. Reports tolerance of fluids, tolerance of food. : No signs and/or symptoms were reported regarding the genitourinary system. EENT: No signs and/or symptoms were reported regarding the EENT system. Derm: Skin is intact, is healthy with good turgor, Skin is dry, Skin is normal, Skin temperature is warm surgical wound noted to left gluteal fold, is bleeding at this time. Musculoskeletal: Capillary refill is brisk, in bilateral fingers. Range of motion: intact in all extremities, Swelling absent. 16:42 Reassessment: Patient appears in no apparent distress at this time. bleeding controlled sg at this time, pressure dressing remains in place, awaiting lab results at this time. 16:58 Reassessment: Patient appears in no apparent distress at this time. Patient and/or sg family updated on plan of care and expected duration. Pain level reassessed. Patient is alert, oriented x 3, equal unlabored respirations, skin warm/dry/pink. Dressing dry and intact. No active bleeding noted. 17:40 Reassessment: Patient appears in no apparent distress at this time. Patient and/or sg family updated on plan of care and expected duration. Pain level reassessed. awaiting a bed assignment at this time Patient states symptoms have improved. 18:28 Reassessment: Patient appears in no apparent distress at this time. Patient is alert, sg oriented x 3, equal unlabored respirations, skin warm/dry/pink. pt notified a bed assignment has been made, but will not be able to go up until after shift change, pt stated understanding, will continue to monitor. 19:00 Reassessment: Patient appears in no apparent distress at this time. Patient and/or aa1 family updated on plan of care and expected duration. Pain level reassessed. Patient is alert, oriented x 3, equal unlabored respirations, skin warm/dry/pink. Bedside hand off done at this time with Valdo Sosa RN. Pt to be admitted to bed 217, will call report once floor has completed shift change. 19:46 Reassessment: Patient appears in no apparent distress at this time. Patient is alert, aa1 oriented x 3, equal unlabored respirations, skin warm/dry/pink. Report given to DOMINIQUE Montero on 2nd floor. No active bleeding from wound noted at this time. Vital Signs: 16:32 Resp 19; Weight 119.75 kg; Height 6 ft. 3 in. (190.50 cm); Pain 7/10; ss 16:33 BP 120 / 61; Pulse 89; Resp 18; Temp 98.6(O); Pulse Ox 100% on R/A; dh3 17:30 BP 122 / 62; Pulse 88; Resp 17; Pulse Ox 99% on R/A; sg 19:00 BP 132 / 74; Pulse 85; Resp 18; Pulse Ox 98% on R/A; Pain 0/10; aa1 19:49 BP 118 / 62; Pulse 83; Resp 16; Temp 98.5; Pulse Ox 96% on R/A; aa1 16:32 Body Mass Index 33.00 (119.75 kg, 190.50 cm) ED Course: 16:07 Patient arrived in ED. dm5 16:10 Glynn Elizalde MD is Attending Physician. kdr 16:12 Wilder Orenlas, RN is Primary Nurse. bp 16:15 Inserted saline lock: 18 gauge in left forearm, using aseptic technique. Blood ss collected. Patient maintains SpO2 saturation greater than 95% on room air. 16:23 Dom Luna PA is PHCP. 8 16:31 Triage completed. ss 16:32 Arm band placed on right wrist. ss 16:38 Cesar Shetty MD is Hospitalizing Provider. 8 16:40 Primary Nurse role handed off by Wilder Ornelas, RN 16:40 Valdo Sosa, RN is Primary Nurse. 16:40 Initial lab(s) drawn, by in, sent to lab. T\\T\\S collected, blood band applied to patient. sg 16:42 Patient has correct armband on for positive identification. Placed in gown. Bed in low ss position. Call light in reach. Side rails up X 1. Pulse ox on. NIBP on. Warm blanket given. 19:53 No provider procedures requiring assistance completed. Patient admitted, IV remains in aa1 place. Administered Medications: No medications were administered Outcome: 16:38 Decision to Hospitalize by Provider. 8 19:53 Admitted to Med/surg accompanied by tech, via stretcher, room 217, with chart, Report aa1 called to DOMINIQUE Montero 19:53 Condition: stable 19:53 Discharge instructions given to patient, Instructed on the need for admit, Demonstrated understanding of instructions. 19:54 Patient left the ED. aa1 Signatures: Joyce Reyes, DOMINIQUE RN dm5 Valdo Sosa RN RN Olimpia Luna RN RN aa1 Glynn Elizalde MD MD [facility] Sierra Amin RN RN Dom Luna PA PA [id number] Juliana Zimmerman 3 Wilder Ornelas, DOMINIQUE RN bp
[2019-02-16 16:50] LABS: Absolute Lymphocytes (CBC) 1.1 K/uL (0.7-4.9); Absolute Monocytes 0.8 K/uL (0.1-1.3); Absolute Neutrophil 5.2 K/uL (1.8-8.0); Basophils % 1.3 % (0-1.3); Eosinophils % 4.4 % (0-4.4); Lymphocytes % 14.9 % (15.3-44.8); MPV 7.5 fL (7.6-11.3); Monocytes % 10.4 % (3.3-12.3); RBC Red Blood Cell Count 3.34 M/uL (4.33-5.43)
[2019-02-16 18:32] LABS: Protime INR 1.09
[2019-02-16] MEDS ORDERED: ONDANSETRON 4 MG/2 ML VIAL IV PRN (20:01)
[2019-02-16] MEDS ORDERED: Levofloxacin500mg IV 500 MG/100 ML BAG IV SCH (20:01)
[2019-02-16] MEDS ORDERED: ACETAMINOPHEN 500 MG TAB PO PRN (20:01)
[2019-02-16] MEDS: INSULIN -REGULAR HUMAN 50 UNIT/0.5 ML ML SQ SCH (22:02)
[2019-02-16] MEDS: NA CHLORIDE 0.9% 1,000 ML IV SCH (22:02)
[2019-02-16] MEDS: HYDROCODONE/APAP 7.5/325 MG TAB PO PRN (22:03)
--- NOTE | 2019-02-17 04:04 | HP ---
Date of Admission: 02/16/2019 Chief Complaint: Bleeding from surgical site. Consultants: Dr. Keys with General Surgery. History Of Present Illness: The patient is a 38-year-old male who was discharged several hours ago, who comes back to the hospital because of bleeding. Apparently, before the patient was leaving today , he was showering. The wound was covered. However, apparently the packing came out during the show er. The nurse, who I spoke with personally, did repack the wound. Dr. Keys also evaluated the brianne ent and there was no further bleeding at that time. The patient got home and noticed that there was bleeding on the car seat that he was sitting on, therefore, came back to the ER as he was unable to s top the bleeding. In the ER, his repeat hemoglobin was 8.8, down from 9.[address] Keys w as contacted by the ER and plan is for re-evaluation and possible surgical hemostasis. The patient w as then referred for admission. His symptoms are constant, moderate, progressively worsening. Past Medical History: End-stage renal disease, on hemodialysis; diabetes mellitus type 2; obesity. Surgical History: Dialysis catheter placement. Family History: Father had hypertension and diabetes. Social History: The patient is an everyday smoker. No alcohol use or illicit drug use. Review of Systems: Eleven-point system reviewed, negative except as per HPI. Physical Examination: Vital Signs: Respirations 19, blood pressure 120/61, pulse 89, temperature 98.6, BMI 33. HEENT: Normocephalic, atraumatic. PERRLA. EOMI. Moist mucous membranes. Oropharynx is clear. Co njunctivae anicteric. Neck: Supple. No JVD. Trachea midline. CV: S1, S2. Regular rate and rhythm. Peripheral pulses present. No murmurs. Respiratory: Moving air well bilaterally. No wheezing or stridor. Gastrointestinal: Abdomen is soft, nontender, nondistended. Positive bowel sounds. No guarding or rigidity. Extremities: No clubbing, cyanosis, or edema. No calf tenderness. Skin: Left gluteal abscess bandaged with pressure dressing. No active bleeding at this time. Neuro: Cranial nerves 2 through 12 intact grossly. No focal neurological deficit. Speech is normal . Psych: Mood is okay. Affect is full. Insight and judgment are good. Laboratory Data: Sodium 137, potassium 5, chloride 99, CO2 26, BUN 54, creatinine 14, glucose 252, c alcium 8.7. WBC 7.6, H and H 8.8 and 27, platelets 387, neutrophils 69%. Assessment And Plan: A 38-year-old male with: 1.Bleeding from surgical site. The patient has pressure dressing on at this moment. Dr. Keys has been made aware to come to the ER. We will continue to monitor. H and H has dropped slightly from 9 .2 to 8.8. 2.Continuous abscess of the buttock, left gluteal region, status post incision and drainage secondar y to Morganella. We will resume Levaquin. 3.End-stage renal disease, on hemodialysis Wednesday, Wednesday, Wednesday. Consult Nephrology. The brianne ent will be dialyzed in a.m. 4.Anemia of chronic disease. H and H stable. Continue to monitor. Transfuse as needed, likely due to end-stage renal disease, on dialysis. 5.Diabetes mellitus type 2 with hyperglycemia with long-term use of insulin. We will start on slidi ng scale insulin and monitor Accu-Cheks. 6.Essential hypertension, stable. Watch for signs of hypotension due to blood loss. 7.Obesity due to excess calories. BMI 33. 8.Nicotine dependence with cigarette smoking, counseled. 9.Deep venous thrombosis prophylaxis. No chemical anticoagulation due to bleed. We will place SCDs. Admit patient to Med-Surg, place as inpatient. Length of stay gr eater than 2 midnights. CARTER Voice ID: [id number]
[2019-02-17] MEDS: HYDROCODONE/APAP 7.5/325 MG TAB PO PRN ×3 (04:51→23:02)
[2019-02-17 05:16] LABS: Absolute Lymphocytes (CBC) 1.1 K/uL (0.7-4.9); Absolute Monocytes 0.8 K/uL (0.1-1.3); Absolute Neutrophil 4.2 K/uL (1.8-8.0); Basophils % 1.3 % (0-1.3); Hematocrit 24.9 % (39.6-49.0); Lymphocytes % 17.3 % (15.3-44.8); MPV 6.9 fL (7.6-11.3); RBC Red Blood Cell Count 3.03 M/uL (4.33-5.43)
[2019-02-17 05:44] LABS: Albumin 2.5 g/dL (3.4-5.0); Bilirubin Total 0.2 mg/dL (0.2-1.0); Potassium 5.5 mmol/L (3.5-5.1); Protein, Total 6.9 g/dL (6.4-8.2)
[2019-02-17] MEDS: INSULIN -REGULAR HUMAN 50 UNIT/0.5 ML ML SQ SCH ×4 (07:30→21:00)
[2019-02-17] MEDS: NA CHLORIDE 0.9% 1,000 ML IV SCH (09:17)
[2019-02-17] MEDS ORDERED: NA CHLORIDE 0.9% 1,000 ML ONE (10:35)
[2019-02-17] MEDS: METOPROLOL TAR 25 MG TAB PO SCH (10:37)
[2019-02-17] MEDS ORDERED: FENTANYL CITR 100 MCG/2 ML ONE ×2 (10:51→11:45)
[2019-02-17] MEDS ORDERED: LIDOCAINE 1% MPF 5 ML VIAL ONE ×2 (10:51)
[2019-02-17] MEDS ORDERED: ROCURONIUM 50 MG/5 ML VIAL IV ONE (10:51)
[2019-02-17] MEDS ORDERED: PROPOFOL 200 MG/20 ML VIAL IV ONE ×2 (10:51→11:30)
[2019-02-17] MEDS ORDERED: MIDAZOLAM HCL 2 MG/2 ML INJ ONE (10:51)
[2019-02-17] MEDS ORDERED: BUPIVACAINE 0.5% PF 10 ML VIAL ONE (10:59)
[2019-02-17] MEDS ORDERED: CEFAZOLIN/SWI 1gm 1 GM/10 ML SYR ONE (11:08)
--- NOTE | 2019-02-17 11:48 | P.OP ---
Preoperative diagnosis: Bleeding left buttock wound Postoperative diagnosis: same Primary procedure: Exploration left buttock wound Secondary procedure: control of bleeding Anesthesia: gen Estimated blood loss: min Specimen: none Findings: as above Complications: None Transferred to: Recovery Room Condition: Good
[2019-02-17] MEDS ORDERED: GLYCOPYRROLATE 0.2 MG/ML SYR ONE (11:54)
[2019-02-17] MEDS ORDERED: KETOROLAC 30 MG/ML INJ ONE (11:54)
[2019-02-17] MEDS ORDERED: NEOSTIGMINE 1 MG/ML -10 ML VIAL ONE (11:55)
[2019-02-17] MEDS ORDERED: ONDANSETRON 4 MG/2 ML VIAL ONE (11:55)
[2019-02-17] MEDS: SEVELAMER CARBONATE 800 MG TABLET PO SCH ×4 (12:00→23:02)
[2019-02-17] MEDS ORDERED: ALBUTEROL 2.5 MG/3 ML NEB SOL ONE (12:18)
[2019-02-17] MEDS: HYDROMORPHONE HCL 1 MG/ML INJ ONE ×2 (12:20→12:25)
[2019-02-17] MEDS ORDERED: ALBUTEROL 2.5 MG/3 ML NEB SOL NEB ONE (13:48)
[2019-02-17] MEDS: CINACALCET HCL 30 MG TAB PO SCH ×3 (17:00→23:03)
[2019-02-17] MEDS ORDERED: SOD POLYSTYREN SUL 15 GM/60 ML UCUP PO ONE (17:00)
--- NOTE | 2019-02-17 17:06 | OP ---
Date of Procedure: 02/17/2019 Surgeon: Michael Keys MD Preoperative Diagnosis: Bleeding wound, left buttock. Postoperative Diagnosis: Bleeding wound, left buttock. Procedure: Exploration of left buttock wound and control of bleeding. Estimated Blood Loss: Minimal. Specimen: None. Findings: As above. Anesthesia: General. Complications: None. Disposition: The patient tolerated the procedure in stable condition and taken to the Recovery in go od general condition. Brief History: The patient is 38-year-old gentleman who I saw 3 days ago with an abscess on his left buttock. He was taken to the OR, incision, drainage, debridement was done. While in the hospital w ith the dressing changes there was no problem, but he went home yesterday and said that he started bl eeding when into a bathtub, and the bleeding was bad, and he had clots, and he came to the ER, and th ere was venous bleeding noted. The wound was packed with control of bleeding, and he was admitted. Coag with H and H were checked, and he was deemed medically stable, he was taken to the OR, he unders tood the risks, benefits, and alternatives, and agreed to procedure. Operative Note: The patient was brought to the OR, placed in supine position. General anesthesia wa s begun. The patient was placed in the prone position, prepped and draped in usual sterile fashion. Packing removed from the wound. There was minimal oozing noted from the granulation tissue, but the re was no active pumping bleeding. There was venous blood. Wound irrigated. All the oozing was con trolled with cautery, and no evidence of any active bleeding noted again, and wet-to-dry normal salin e dressing change applied. The patient tolerated the procedure in stable condition and taken to [facility] very in good general condition. /MODL Voice ID: [id number] Report ID: [id number]
--- NOTE | 2019-02-17 20:51 | PN ---
Date of Progress Note: 02/17/2019 Subjective: The patient is seen and examined. Chart reviewed and case discussed with RN and Dr. Kedar resendez. The patient went to the OR, did not have much bleeding, some minimal oozing from the wound. Medications: List reviewed. Physical Examination: Vital Signs: Temperature 98.6, heart rate 89, blood pressure 119/47, respirations 20, O2 96% on room air. General: Awake, alert, oriented x3. Obese male. CV: S1, S2. Regular rate and rhythm. Peripheral pulses present. Respiratory: Moving air well bilaterally. No wheezing or stridor. Gastrointestinal: Abdomen is soft, nontender, nondistended. Positive bowel sounds. No guarding or rigidity. Extremities: No clubbing, cyanosis or edema. Neurologic: Nonfocal. Cranial nerves 2 through 12 intact grossly. Skin: Left buttocks incision wound, does have some minimal oozing. No signs of infection or pustula r drainage. Laboratory Data: Sodium 138, potassium 5.5, chloride 99, CO2 25, BUN 59, creatinine 14.9, glucose 39 3, calcium 8.1. WBC 6.4, H and H 8 and 24.9, platelets 287, neutrophils 65%. Assessment And Plan: A 38-year-old male with. 1.Surgical site bleeding, now controlled. The patient was taken back to the OR. No significant hem orrhage found. We will continue to pack wound and monitor H and H. 2.Hyperkalemia. We will give Kayexalate. 3.Abscess of the left gluteal region, status post incision and drainage secondary to Morganella. We will resume Levaquin. 4.End-stage renal disease, on hemodialysis, Wednesday, Wednesday, and Wednesday. Nephrology on board, sta ble. 5.Anemia of chronic disease. H and H have dropped slightly, likely secondary to bleeding. We will transfuse as needed. We will monitor H and H. 6.Diabetes mellitus type 2 with hyperglycemia with long-term use of insulin. Continue sliding scale insulin and monitor blood glucose levels. 7.Nicotine dependence with cigarette smoking. 8.Obesity, BMI of 33. 9.Essential hypertension, stable. 10.DVT prophylaxis with SCDs. Plan: We will continue to monitor H and H. We will give Kayexalate for hyperkalemia. Anticipate he modialysis today. Likely discharge in a.m., if bleeding continues to trend down and the hemoglobin r emains stable. SA/MODL Voice ID: [id number] Report ID: [id number]
[2019-02-18 02:04] LABS: Hematocrit 26.1 % (39.6-49.0)
[2019-02-18 03:46] VITALS: O2SAT 98
[2019-02-18] MEDS: HYDROCODONE/APAP 7.5/325 MG TAB PO PRN ×2 (04:35→10:43)
[2019-02-18 05:04] VITALS: TEMP 97.3
[2019-02-18 05:23] VITALS: BMI 33.3
[2019-02-18 06:38] LABS: Absolute Monocytes 0.8 K/uL (0.1-1.3); Absolute Neutrophil 5.4 K/uL (1.8-8.0); Eosinophils % 3.4 % (0-4.4); Hematocrit 26.3 % (39.6-49.0); Lymphocytes % 13.6 % (15.3-44.8); MPV 6.8 fL (7.6-11.3); Monocytes % 10.9 % (3.3-12.3); RBC Red Blood Cell Count 3.27 M/uL (4.33-5.43)
[2019-02-18 06:59] LABS: Albumin 2.6 g/dL (3.4-5.0); Bilirubin Total 0.3 mg/dL (0.2-1.0); Potassium 4.9 mmol/L (3.5-5.1); Protein, Total 7.1 g/dL (6.4-8.2)
[2019-02-18] MEDS: INSULIN -REGULAR HUMAN 50 UNIT/0.5 ML ML SQ SCH (07:30)
[2019-02-18] MEDS: SEVELAMER CARBONATE 800 MG TABLET PO SCH (08:00)
[2019-02-18] MEDS: METOPROLOL TAR 25 MG TAB PO SCH (09:07)
[2019-02-18] MEDS ORDERED: PHENOL 1.4% ORAL SPRAY 180ML MM PRN (09:25)
[2019-02-18] MEDS ORDERED: METHYLPREDNISOLONE 40 MG INJ IV ONE (09:25)
[2019-02-18 10:04] VITALS: BP 144/79
--- NOTE | 2019-02-18 12:49 | PN ---
Date of Progress Note: 02/18/2019 Subjective: The patient is awake, alert. No complaint. No further bleeding. Vital signs stable. Afebrile. H and H stable. Dressing clean, dry, and intact. Assessment: Status post incision, drainage, and debridement of left buttock abscess. Recommendations: The patient cleared for discharge. Discharge instructions given and follow up in [facility]. Antibiotics and wound care as ordered. /MODL Voice ID: [id number] Report ID: [id number]
--- NOTE | 2019-02-18 13:07 | DS ---
Date of Discharge: 02/18/2019 Consultants: Dr. Keys of General Surgery. Procedures: On 02/17/2019, exploration of left buttock wound. Control of bleeding. Discharge Diagnoses: 1.Surgical site bleeding, now controlled. 2.Hyperkalemia, corrected. 3.Abscess of the left gluteal region, status post incision and drainage secondary to Morganella, on Levaquin. 4.End-stage renal disease, on hemodialysis. 5.Anemia of chronic disease, stable. 6.Diabetes mellitus type 2 with hyperglycemia with long-term use of insulin. 7.Nicotine dependence. Cigarette smoking, continuous. 8.Obesity, BMI 33. 9.Essential hypertension, stable. Hospital Course: The patient is a 38-year-old male who was admitted for abscess of the gluteal regio n, had incision and drainage done by Dr. Keys. Shortly after discharge on the , the patient had some bleeding from his packing and wound, and therefore, came back and was re-admitted. The patient was again seen by Dr. Keys for control of bleeding from the surgical site. He was taken to the OR. No significant abnormalities were found. He had some venous oozing. Wound was repacked with press ure dressing. The patient did well over the course of the hospital stay. He did complain of some so re throat, which was likely due to the prone position during the OR for better visualization of his w ound. The patient's hemoglobin remained stable. He was restarted on his Levaquin. The patient was then cleared for discharge after his hemoglobin was stable and his wound did not show any further ble eding. Medications: As per medication reconciliation list. Finish up course of Levaquin. Followup: Follow up with PCP in 2-3 days. Follow up with surgeon, Dr. Keys in 1 week for wound jaye ck. Return to ER for worsening condition. Diet: Heart healthy. Activity: As tolerated. The patient recommended to stop smoking completely. Physical Examination: General: Awake, alert, oriented x3. No acute distress. Obese male. CV: S1, S2. No murmurs. Respiratory: Moving air well bilaterally. No wheezing. Gastrointestinal: Abdomen is soft, nontender, nondistended. Positive bowel sounds. Extremities: No clubbing, cyanosis, or edema. Neurologic: Nonfocal. Skin: Gluteal region wound packed, dressing in place. No significant bloody discharge. Total time spent discharging the patient was 32 minutes. /BENY Voice ID: [id number] Report ID: [id number]
[2019-02-18] MEDS ORDERED: Levofloxacin 250mg IV 250 MG/50 ML BAG IV SCH (20:00)
== END 2019-02-18 11:10 | disposition home or self-care (01) | DRG 907 ==
LOC: ER 15:59 → ERHOLD 17:04 → 2ND 19:47
PROVIDERS: ADMIT Family Medicine; ATTEND Family Medicine
PROC: 2W17X6Z Compression of Left Inguinal Region using Pressure Dressing (ICD-10-PCS; 2019-02-16)
PROC: 30233N1 Transfusion of Nonautologous Red Blood Cells into Peripheral Vein, Percutaneous Approach (ICD-10-PCS; 2019-02-17)
PROC: 5A1D70Z Performance of Urinary Filtration, Intermittent, Less than 6 Hours Per Day (ICD-10-PCS; 2019-02-17)
PROC: 0Y310ZZ Control Bleeding in Left Buttock, Open Approach (ICD-10-PCS; principal; 2019-02-17 13:30)
DX: L76.22 Postprocedural hemorrhage of skin and subcutaneous tissue following other procedure (principal); N18.6 End stage renal disease; L02.31 Cutaneous abscess of buttock; I12.0 Hypertensive chronic kidney disease with stage 5 chronic kidney disease or end stage renal disease; E87.5 Hyperkalemia; D63.8 Anemia in other chronic diseases classified elsewhere; E11.22 Type 2 diabetes mellitus with diabetic chronic kidney disease; E11.65 Type 2 diabetes mellitus with hyperglycemia; Z99.2 Dependence on renal dialysis; Z79.4 Long term (current) use of insulin; F17.210 Nicotine dependence, cigarettes, uncomplicated; E66.9 Obesity, unspecified; Z68.33 Body mass index [BMI] 33.0-33.9, adult; Y83.8 Other surgical procedures as the cause of abnormal reaction of the patient, or of later complication, without mention of misadventure at the time of the procedure; Y92.019 Unspecified place in single-family (private) house as the place of occurrence of the external cause; B96.89 Other specified bacterial agents as the cause of diseases classified elsewhere
CPT/HCPCS: 36415; 80048; 80053; 82962; 85014; 85018; 85025; 85610; 86850; 86900; 86901; 90935; 94640; 94760; 99291; J0690; J1170; J2250; J2405; J2704; J2710; J2920; J3010; J7030; P9016

== ENCOUNTER 2019-08-16 12:16 | Emergency (ER) | payer OTHER ==
--- OUTSIDE RECORDS SUMMARY | 2019-08-16 12:29 | XMS REPORT ---
:1980 Author Organization [facility] Address [address] [place] [address] Dr. Varghese [address] [place] [id number] Care Team Providers Name Role Phone Unavailable Unavailable Unavailable Problems This patient has no known problems. Allergies, Adverse Reactions, Alerts This patient has no known allergies or adverse reactions. Medications This patient has no known medications.
--- OUTSIDE RECORDS SUMMARY | 2019-08-16 12:29 | XMS REPORT | Summary of Care ---
:1980 Author Organization [facility] Address [address] [place] [address] Care Team Providers Name Role Phone Pcp, Patient Does Not Have A Primary Care Provider Reason for Visit Reason Comments Intake Referral Encounter Details Date Type Department Care Team Description 05/31/2019 Telephone [facility] Transplant- Brigid Julian, Intake Referral [facility] [address] [facility] [address] [place] [address] [place] [address] Allergies No Known Allergiesdocumented as of this encounter (statuses as of 07/17/2019) Medications Medication Sig Dispensed Refills Start Date End Date Status cloniDINE 0.2 mg tablet Take 0.2 mg by 0 Active mouth 2 (two) times daily. GLIPIZIDE ORAL Take by mouth 0 Active daily. metoprolol succinate XL Take 50 mg by 0 Active 50 mg 24 hr tablet mouth 2 (two) times daily. cinacalcet (SENSIPAR) Take 30 mg by 0 Active 30 mg tablet mouth daily. glyBURIDE 5 mg tablet Take 5 mg by 0 Active mouth daily with breakfast. hydralAZINE 50 mg Take 50 mg by 0 Active tablet mouth 3 (three) times daily. LACTOSE-REDUCED FOOD Take 237 mL by 0 Active (ENSURE COMPACT ORAL) mouth 3 (three) times daily with meals. documented as of this encounter (statuses as of 07/17/2019) Active Problems Problem Noted Date Obesity (BMI 30-39.9) 12/15/2016 documented as of this encounter (statuses as of 07/17/2019) Social History Tobacco Use Types Packs/Day Years Used Date Former Smoker Cigarettes Alcohol Use Drinks/Week oz/Week Comments No 0 Standard drinks or equivalent 0.0 Sex Assigned at Date Recorded Not on file Job Start Date Occupation Industry Not on file Not on file Not on file Travel History Travel Start Travel End No recent travel history available. documented as of this encounter Last Filed Vital Signs Not on filedocumented in this encounter Plan of Treatment Health Maintenance Due Date Last Done Comments DTaP,Tdap,and Td Vaccines (1 - 1997 Tdap) INFLUENZA VACCINE (#1) 2019 PNEUMOCOCCAL 0-64 YEARS COMBINED Aged Out No longer eligible based on SERIES patient's age to complete this topic documented as of this encounter Results Not on filedocumented in this encounter Insurance Payer Benefit Plan / Subscriber ID Effective Phone Address Type Group Dates [facility] TDCJ [id number] 2017-[place] [address] [employer] xxxxxxxxx 2019-Prese [address] [place] [place] [id number] [place] [address] documented as of this encounter
--- OUTSIDE RECORDS SUMMARY | 2019-08-16 12:30 | XMS REPORT | Summary of Care ---
:1980 Author Organization [facility] Address [address] [place] [address] Care Team Providers Name Role Phone Pcp, Patient Does Not Have A Primary Care Provider Reason for Visit Reason Comments Intake Referral Appointment Encounter Details Date Type Department Care Team Description 05/31/2019 Telephone [facility] Transplant- Brigid Julian Intake Referral; Jami Mayen MD Appointment [facility] [address] [facility] [address] [place] [id number] [phone] Allergies No Known Allergiesdocumented as of this encounter (statuses as of 07/26/2019) Medications Medication Sig Dispensed Refills Start Date [...] as of this encounter (statuses as of 07/26/2019) Active Problems Problem Noted Date Obesity (BMI 30-39.9) 12/15/2016 documented as of this encounter (statuses as of 07/26/2019) Social History Tobacco Use Types Packs/Day Years [...] ID Effective Phone Address Type Group Dates [facility] [place] [id number] 2017-Pres [address] [place] [id number] [employer] xxxxxxxxx 2019-Prese [address] [place] [address] [place] [address] documented as of this encounter
--- OUTSIDE RECORDS SUMMARY | 2019-08-16 12:30 | XMS REPORT | Summary of Care ---
:1980 Author Organization [facility] Address [address] [place] [address] Care Team Providers Name Role Phone Pcp, Patient Does Not Have A Primary Care Provider Reason for Visit Reason Comments Pre-Transplant Appointment Encounter Details Date Type Department Care Team Description 08/11/[address] [facility] Transplant- Brigid Julian Pre- Transplant; Jami Mayen MD Appointment [facility] [address] [facility] [address] [place] [phone] Allergies No Known Allergiesdocumented as of this encounter (statuses as of 08/11/2019) Medications Medication Sig Dispensed Refills Start Date [...] as of this encounter (statuses as of 08/11/2019) Active Problems Problem Noted Date Obesity (BMI 30-39.9) 12/15/2016 documented as of this encounter (statuses as of 08/11/2019) Social History Tobacco Use Types Packs/Day Years [...] ID Effective Phone Address Type Group Dates [facility] [place] [id number] [place] [address] [employer] xxxxxxxxx 2019-Prese [address] [place] [id number] [place] [address] documented as of this encounter
[2019-08-16] MEDS ORDERED: HYDROCODONE/APAP 10/325 TAB ONE (12:32)
[2019-08-16] MEDS ORDERED: LIDOCAINE 1% MPF 5 ML VIAL ONE (12:33)
[2019-08-16] MEDS ORDERED: TETANUS & DIPHTHERIA TOX,ADULT 0.5 ML VIAL ONE (12:33)
--- NOTE | 2019-08-16 13:15 | RAD REPORT ---
EXAM DESCRIPTION: RAD - Hand Left 3 View - 08/16/2019 12:51 pm CLINICAL HISTORY: Hand pain, laceration to the thumb COMPARISON: None. FINDINGS: Focal cortical defect and fracture present involving the base of the left thumb distal pha lanx along the ventral margin. Extension into the IP joint space is not identified. No retained forei gn body identified. Soft tissue wound is present on the ventral margin soft tissues. IMPRESSION: Cortical disruption and fracture line seen along the dorsal side base distal phalanx lef t thumb. This would indicate band saw injury reach the bone. No foreign body.
--- NOTE | 2019-08-16 14:14 | ER ---
Nurse's Notes [facility] Name: Abhinav John Age: 39 yrs Sex: Male : 1980 Arrival Date: 08/16/2019 Time: 12:17 Bed 2 Private MD: Diagnosis: Laceration without foreign body of left thumb without damage to nail;Nondisplaced fracture of proximal phalanx of left thumb Presentation: 08/16 12:22 Presenting complaint: Laceration to left thumb while working with band saw. Transition hb of care: patient was not received from another setting of care. Onset of symptoms was August 16, 2019. Risk Assessment: Do you want to hurt yourself or someone else? Patient reports no desire to harm self or others. Initial Sepsis Screen: Does the patient meet any 2 criteria? No. Patient's initial sepsis screen is negative. Does the patient have a suspected source of infection? No. Patient's initial sepsis screen is negative. Care prior to arrival: None. 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 - Social history:: Smoking status: Patient/guardian denies using tobacco. - Ebola Screening: : No symptoms or risks identified at this time. Screenin:22 Abuse screen: Denies threats or abuse. Denies injuries from another. Nutritional aj1 screening: No deficits noted. Tuberculosis screening: No symptoms or risk factors identified. 15:56 Fall Risk None identified. aj1 Assessment: 12:22 General: Appears in no apparent distress. uncomfortable, Behavior is calm, cooperative, aj1 appropriate for age. Pain: Complains of pain in palmar aspect of distal phalanx of left thumb Pain currently is 10 out of 10 on a pain scale. Neuro: Level of Consciousness is awake, alert, obeys commands. 12:22 Cardiovascular: Patient's skin is warm and dry. Respiratory: Airway is patent aj1 Respiratory effort is even, unlabored, Respiratory pattern is regular, symmetrical. GI: No signs and/or symptoms were reported involving the gastrointestinal system. : No signs and/or symptoms were reported regarding the genitourinary system. EENT: No signs and/or symptoms were reported regarding the EENT system. Derm: Skin is normal. Musculoskeletal: Range of motion: limited in IP of left thumb and MCP of left thumb. Injury Description: Laceration sustained to palmar aspect of distal phalanx of left thumb is bleeding profusely. 12:23 Reassessment: Pressure drsg applied to left thumb. aj1 12:33 Reassessment: Drsg appears saturated, drsg was changed, but laceration does not appear aj1 to be bleeding as profusely as when previous bandage was applied. 12:38 Reassessment: Reassessed drsg to left thumb small amount of sanguinous drainge noted to aj1 drsg, patient was instructed to notify staff if drsg appears saturated. Patient verbalized understand. 12:44 Reassessment: Reassessed patient's drsg, small amount of sanguinous drainage noted. aj1 Patient was reminded to notify staff if drsg becomes saturated. 13:26 Reassessment: Matteo Colby NP at bedside performing suture repair. aj1 13:30 Reassessment: Patient appears in no apparent distress at this time. No changes from aj1 previously documented assessment. Patient and/or family updated on plan of care and expected duration. Pain level reassessed. Patient is alert, oriented x 3, equal unlabored respirations, skin warm/dry/pink. 14:30 Reassessment: Patient appears in no apparent distress at this time. No changes from aj1 previously documented assessment. Patient and/or family updated on plan of care and expected duration. Pain level reassessed. Patient is alert, oriented x 3, equal unlabored respirations, skin warm/dry/pink. 15:30 Reassessment: Patient left prior to receiving discharge instruction or prescriptions. aj1 Attempted to call patient, no answer. Left a voicemail requesting a call back. Vital Signs: 12:23 BP 152 / 93; Pulse 89; Resp 16; Temp 98.4; Pulse Ox 100% on R/A; Weight 129.27 kg; hb Height 6 ft. 2 in. (187.96 cm); Pain 10/10; 13:00 BP 130 / 77; Pulse 79; Resp 18; Pulse Ox 99% ; jl7 13:30 BP 146 / 82; Pulse 79; Resp 18; Pulse Ox 96% on R/A; jl7 14:00 BP 135 / 73; Pulse 81; Resp 18; Pulse Ox 97% on R/A; jl7 14:30 BP 144 / 79; Pulse 79; Resp 18; Pulse Ox 96% on R/A; jl7 15:00 BP 148 / 83; Pulse 82; Resp 18; Pulse Ox 96% on R/A; jl7 12:23 Body Mass Index 36.59 (129.27 kg, 187.96 cm) hb ED Course: 12:17 Patient arrived in ED. mr 12:19 Darrell Colby, MIRYAM is PHCP. pm1 12:19 Glynn Elizalde MD is Attending Physician. pm1 12:22 Patient has correct armband on for positive identification. Bed in low position. Call aj1 light in reach. Side rails up X 1. 12:22 No provider procedures requiring assistance completed. aj1 12:23 Triage completed. hb 12:24 Arm band placed on right wrist. hb 12:37 Ivet Yanez, RN is Primary Nurse. aj1 12:57 Hand Left 3 View XRAY In Process Unspecified. EDMS 14:13 Merrill Motnanez MD is Referral Physician. pm1 14:58 Aluminum finger splint applied to left thumb, dorsal aspect of distal phalanx of left dh3 thumb, dorsal aspect of proximal phalanx of left thumb, palmar aspect of distal phalanx of left thumb, palmar aspect of proximal phalanx of left thumb and left thumbnail dressed with non-adherent gauze, triple antibiotic and kerlix. 15:56 Patient did not have IV access during this emergency room visit. aj1 Administered Medications: 12:37 Drug: Shiner 10 mg-325 mg 1 tabs Route: PO; aj1 13:30 Follow up: Response: No adverse reaction; RASS: Alert and Calm (0) aj1 12:44 Drug: Tetanus-Diphtheria Toxoid Adult 0.5 ml {Corrective Therapist: [employer]. Exp: aj1 04/11/2021. Lot #: [id number]. } Route: IM; Site: right deltoid; 15:57 Follow up: Response: No adverse reaction aj1 13:15 Drug: Lidocaine (1 %) 5 ml {Note: administered by MIRYAM Ramírez.} Volume: 5 ml; Route: jl7 Infiltration; 15:57 Follow up: Response: No adverse reaction aj1 15:04 Drug: Ancef 1 grams Route: IM; Site: left gluteus; aj1 15:30 Follow up: Response: No adverse reaction aj1 Outcome: 14:14 Discharge ordered by MD. pm1 15:56 Discharged to home ambulatory. aj1 15:56 Condition: good 15:56 Discharge instructions given to no one, patient left prior to receiving discharge papers or prescriptions 15:57 Patient left the ED. iw Signatures: Dispatcher [employer] EDMS Ivet Yanez RN RN aj1 Blanco, Nabila mr Beverley Huynh RN DOMINIQUE iw Darrell Colby NP CONTENT ENGINEER pm1 Rubi Albarran RN Poli Garza RN RN jl7 Juliana Zimmerman 3 Corrections: (The following items were deleted from the chart) 13:47 12:44 Reassessment: Reassessed patient's drsg, small amount of sanginous drainage aj1 noted. Patient was reminded to notify staff if drsg becomes saturated. aj 15: 15:00 Reassessment: Patient left prior to receiving discharge instruction or aj1 prescriptions. Attempted to call patient, no answer. Left a voicemail requesting a call back aj1
--- NOTE | 2019-08-16 14:15 | EDPHYS ---
Physician Documentation [facility] Name: Abhinav John Age: 39 yrs Sex: Male : 1980 Arrival Date: 08/16/2019 Time: 12:17 Bed 2 Private MD: ED Physician Glynn Elizalde HPI: 08/16 12:35 This 39 yrs old Black Male presents to ER via Ambulatory with complaints of Thumb pm1 Laceration. 12:35 The patient or guardian reports a laceration, irregular, 5 cm(s). The complaints affect pm1 the palmar aspect of distal phalanx of left thumb. Context: The problem was sustained at home, resulted from laceration by band saw. Onset: The symptoms/episode began/occurred just prior to arrival. Modifying factors: The symptoms are alleviated by pressure to area, the symptoms are aggravated by nothing. Associated signs and symptoms: Pertinent negatives: cyanosis distally, decreased sensation distally, numbness distally, tingling distally. Severity of symptoms: in the emergency department the symptoms are unchanged. The patient has not experienced similar symptoms in the past. The patient has not recently seen a physician. 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 - Social history:: Smoking status: Patient/guardian denies using tobacco. - Ebola Screening: : No symptoms or risks identified at this time. ROS: 12:35 Constitutional: Negative for fever, chills, and weight loss, Eyes: Negative for injury, pm1 pain, redness, and discharge, ENT: Negative for injury, pain, and discharge, Neck: Negative for injury, pain, and swelling, Cardiovascular: Negative for chest pain, palpitations, and edema, Respiratory: Negative for shortness of breath, cough, wheezing, and pleuritic chest pain, Abdomen/GI: Negative for abdominal pain, nausea, vomiting, diarrhea, and constipation, Back: Negative for injury and pain. 12:35 Neuro: Negative for headache, weakness, numbness, tingling, and seizure. 12:35 MS/extremity: Positive for laceration, of the palmar aspect of distal phalanx of left thumb, Negative for decreased range of motion, deformity. 12:35 Skin: Positive for laceration(s), of the palmar aspect of distal phalanx of left thumb. Exam: 12:35 Constitutional: This is a well developed, well nourished patient who is awake, alert, pm1 and in no acute distress. Head/Face: Normocephalic, atraumatic. Chest/axilla: Normal chest wall appearance and motion. Nontender with no deformity. No lesions are appreciated. Cardiovascular: Regular rate and rhythm with a normal S1 and S2. No gallops, murmurs, or rubs. Normal PMI, no JVD. No pulse deficits. Respiratory: Lungs have equal breath sounds bilaterally, clear to auscultation and percussion. No rales, rhonchi or wheezes noted. No increased work of breathing, no retractions or nasal flaring. Back: No spinal tenderness. No costovertebral tenderness. Full range of motion. 12:35 Musculoskeletal/extremity: Extremities: grossly normal except: noted in the palmar aspect of distal phalanx of left thumb: laceration, There is no evidence of nail injury. 12:35 Skin: Appearance: normal except for affected area, injury, laceration(s), the wound is approximately 5 cm(s), of the palmar aspect of distal phalanx of left thumb. Vital Signs: 12:23 BP 152 / 93; Pulse 89; Resp 16; Temp 98.4; Pulse Ox 100% on R/A; Weight 129.27 kg; hb Height 6 ft. 2 in. (187.96 cm); Pain 10/10; 13:00 BP 130 / 77; Pulse 79; Resp 18; Pulse Ox 99% ; jl7 13:30 BP 146 / 82; Pulse 79; Resp 18; Pulse Ox 96% on R/A; jl7 14:00 BP 135 / 73; Pulse 81; Resp 18; Pulse Ox 97% on R/A; jl7 14:30 BP 144 / 79; Pulse 79; Resp 18; Pulse Ox 96% on R/A; jl7 15:00 BP 148 / 83; Pulse 82; Resp 18; Pulse Ox 96% on R/A; jl7 12:23 Body Mass Index 36.59 (129.27 kg, 187.96 cm) Procedures: 15:35 Splinting: Splint applied to left thumb using finger splint, applied by tech. Examined pm1 by me, post splint application: neurovascular intact, Patient tolerated well. Laceration: 14:10 Wound Repair of 5cm ( 2.0in ) subcutaneous laceration to palmar aspect of distal pm1 phalanx of left thumb. Irregularly shaped.. Distal neuro/vascular/tendon intact. Anesthesia: Digital block administered with 3 mls of 1% lidocaine. Wound prep: Extensive cleansing with betadine with hibiclenz by me, Wound irrigation with saline by me, Wound explored extensively, Copious irrigation. Skin closed with 18 4-0 Prolene using simple sutures and sterile technique. Dressed with Neosporin, 4x4's, pressure dressing. Patient tolerated well. MDM: 12:24 Patient medically screened. pm1 14:10 Data reviewed: vital signs. Data interpreted: Pulse oximetry: on room air is 100 %. pm1 Interpretation: normal. 14:12 Counseling: I had a detailed discussion with the patient and/or guardian regarding: the pm1 historical points, exam findings, and any diagnostic results supporting the discharge/admit diagnosis, radiology results, the need for outpatient follow up, for definitive care, a hand specialist, to return to the emergency department if symptoms worsen or persist or if there are any questions or concerns that arise at home. 08/16 12:25 Order name: Hand Left 3 View XRAY; Complete Time: 14:10 pm1 08/16 12:25 Order name: Prolene, Sutures; Complete Time: 14:00 pm1 08/16 12:25 Order name: Dressing - Wound; Complete Time: 12:38 pm1 08/16 12:25 Order name: Gloves, Sterile; Complete Time: 14:00 pm1 08/16 12:25 Order name: Setup Suture Tray; Complete Time: 12:33 pm1 08/16 14:55 Order name: Finger Splint; Complete Time: 14:58 pm1 Administered Medications: 12:37 Drug: Beaver 10 mg-325 mg 1 tabs Route: PO; aj1 13:30 Follow up: Response: No adverse reaction; RASS: Alert and Calm (0) aj1 12:44 Drug: Tetanus-Diphtheria Toxoid Adult 0.5 ml {Ribbon Winder: [employer]. Exp: aj1 04/11/2021. Lot #: [id number]. } Route: IM; Site: right deltoid; 15:57 Follow up: Response: No adverse reaction aj1 13:15 Drug: Lidocaine (1 %) 5 ml {Note: administered by MIRYAM Ramírez.} Volume: 5 ml; Route: jl7 Infiltration; 15:57 Follow up: Response: No adverse reaction aj1 15:04 Drug: Ancef 1 grams Route: IM; Site: left gluteus; aj 15:30 Follow up: Response: No adverse reaction aj Disposition: 08/17 07:32 Co-signature as Attending Physician, Glynn Elizalde MD I agree with the assessment and kdr plan of care. Disposition: 08/16/19 14:14 Discharged to Home. Impression: Laceration without foreign body of left thumb without damage to nail, Nondisplaced fracture of proximal phalanx of left thumb. - Condition is Stable. - Discharge Instructions: Cast or Splint Care, Adult, Laceration Care, Adult, Finger Fracture, [id number]. - Prescriptions for Keflex 500 mg Oral Capsule - take 1 capsule by ORAL route every 6 hours for 10 days; 40 capsule. Tylenol- Codeine #3 300-30 mg Oral Tablet - take 2 tablets by ORAL route every 6 hours As needed; 20 tablet. Doxycycline Hyclate 100 mg Oral Tablet - take 1 tablet by ORAL route every 12 hours; 20 tablet. - Medication Reconciliation Form, Thank You Letter, Antibiotic Education, Prescription Opioid Use form. - Follow up: Emergency Department; When: As needed; Reason: Worsening of condition. Follow up: Merrill Montanez MD; When: 2 - 3 days; Reason: Recheck today's complaints, Continuance of care, Re-evaluation by your physician. - Problem is new. - Symptoms have improved. Signatures: Dispatcher [employer] EDMS Ivet Yanez RN RN aj1 Glynn Elizalde MD MD kdr Williams, Irene, RN RN iw Marinas, Patrick, NP ENGRAVER LETTERING pm1 Rubi Albarran RN RN hb Leal, Jahala, RN RN jl7 Corrections: (The following items were deleted from the chart) 08/16 14:16 14:14 08/16/2019 14:14 Discharged to Home. Impression: Laceration without foreign body pm1 of left thumb without damage to nail. Condition is Stable. Forms are Medication Reconciliation Form, Thank You Letter, Antibiotic Education, Prescription Opioid Use. Follow up: Emergency Department; When: As needed; Reason: Worsening of condition. Follow up: Merrill Montanez; When: 2 - 3 days; Reason: Recheck today's complaints, Continuance of care, Re-evaluation by your physician. Problem is new. Symptoms have improved. pm1 14:55 14:19 Splint - Thumb Spica ordered. pm1 pm1 15:57 14:16 08/16/2019 14:14 Discharged to Home. Impression: Laceration without foreign body iw of left thumb without damage to nail; Nondisplaced fracture of proximal phalanx of left thumb. Condition is Stable. Forms are Medication Reconciliation Form, Thank You Letter, Antibiotic Education, Prescription Opioid Use. Follow up: Emergency Department; When: As needed; Reason: Worsening of condition. Follow up: Merrill Montanez; When: 2 - 3 days; Reason: Recheck today's complaints, Continuance of care, Re-evaluation by your physician. Problem is new. Symptoms have improved. pm1
[2019-08-16] MEDS ORDERED: WATER FOR INJ,STERILE 10 ML ONE (14:44)
[2019-08-16] MEDS ORDERED: CEFAZOLIN SODIUM 1 GM/VIAL ONE (14:44)
[2019-08-16 16:39] VITALS: BP 148/83; O2SAT 96
== END 2019-08-16 15:57 | disposition home or self-care (01) ==
LOC: ER 12:16
PROC: 0JQK0ZZ Repair Left Hand Subcutaneous Tissue and Fascia, Open Approach (ICD-10-PCS; principal; 2019-08-16)
PROC: 2W3HX1Z Immobilization of Left Thumb using Splint (ICD-10-PCS; 2019-08-16)
DX: S62.515A Nondisplaced fracture of proximal phalanx of left thumb, initial encounter for closed fracture (principal); N18.6 End stage renal disease; W29.8XXA Contact with other powered hand tools and household machinery, initial encounter; Y93.9 Activity, unspecified; Y92.009 Unspecified place in unspecified non-institutional (private) residence as the place of occurrence of the external cause; Z23 Encounter for immunization; Z99.2 Dependence on renal dialysis
CPT/HCPCS: 73130; 90471; 90714; 96372; 99284; 12002; 29130; J0690

== ENCOUNTER 2019-09-14 07:31 | Day surgery (SDC) | payer OTHER ==
[2019-09-14] MEDS ORDERED: NA CHLORIDE 0.9% 250 ML ONE (11:20)
[2019-09-14 14:55] VITALS: BP 136/77; TEMP 98; O2SAT 100
[2019-09-14 14:58] VITALS: BMI 31.2
[2019-09-14 15:12] LABS: Hematocrit 27.4 % (39.6-49.0)
== END 2019-09-14 15:45 | disposition home or self-care (01) ==
LOC: DS 07:31
PROVIDERS: ATTEND Internal Medicine
DX: D64.9 Anemia, unspecified (principal)
CPT/HCPCS: 36415; 86900; 86850; 86901; 85018; 85014; 36430; P9016 ×2; J7030

== ENCOUNTER 2019-09-21 03:01 | Inpatient (IN) | payer OTHER ==
[2019-09-21] MEDS ORDERED: METOPROLOL TARTRATE 5 MG/5 ML INJ IV ONE ×5 (03:32→07:53)
[2019-09-21 03:58] LABS: Absolute Lymphocytes (CBC) 0.8 K/uL (0.7-4.9); Basophils % 1.7 % (0-1.3); Hematocrit 25.6 % (39.6-49.0); Lymphocytes % 11.6 % (15.3-44.8); MPV 6.6 fL (7.6-11.3); RBC Red Blood Cell Count 3.17 M/uL (4.33-5.43)
[2019-09-21 03:59] LABS: Protime INR 1.18
[2019-09-21 04:38] LABS: ALT/SGPT 29 U/L (12-78); AST/SGOT 13 U/L (15-37); Albumin 3.1 g/dL (3.4-5.0); Alkaline Phosphatase 102 U/L (45-117); BUN Blood Urea Nitrogen 85 mg/dL (7-18); Bicarbonate 25 mmol/L (21-32); Bilirubin Direct < 0.1 mg/dL (0-0.2); Bilirubin Total 0.3 mg/dL (0.2-1.0); Glucose Level 160 mg/dL (74-106); Magnesium 2.6 mg/dL (1.8-2.4); NT PRO-BNP 59868 pg/mL (<125); Protein, Total 7.1 g/dL (6.4-8.2); Sodium Level 138 mmol/L (136-145); Troponin (Emerg Dept Use Only) 0.02 ng/mL (0.0-0.045)
[2019-09-21 04:40] LABS: Potassium 5.9 mmol/L (3.5-5.1)
--- NOTE | 2019-09-21 05:16 | ER ---
Nurse's Notes [facility] Name: Abhinav John Age: 39 yrs Sex: Male : 1980 Arrival Date: 09/21/2019 Time: 03:02 Bed 7 Private MD: Diagnosis: Atrial fibrillation and flutter Presentation: 09/21 03:17 Presenting complaint: Patient states: Chest pain and cough since WednesdaySep 15. tl1 Admitted to [facility] on Wednesday but left AMA because to many students. Needs dialysis but the dialysis center will not do dialysis due to heart rhythm. Transition of care: patient was not received from another setting of care. Onset of symptoms was September 15, 2019. Risk Assessment: Do you want to hurt yourself or someone else? Patient reports no desire to harm self or others. Initial Sepsis Screen: Does the patient meet any 2 criteria? HR > 90 bpm. Does the patient have a suspected source of infection? No. Patient's initial sepsis screen is negative. Care prior to arrival: None. 03:17 Method Of Arrival: Ambulatory tl1 03:17 Acuity: KASEY 2 tl1 Historical: - Allergies: 03:23 No Known Allergies; tl1 - Home Meds: 03:23 Metoprolol Tartrate Oral [Active]; losartan oral oral [Active]; Insulin: Novolin R tl1 Sub-Q [Active]; Calci-Chew Oral [Active]; - PMHx: 03:23 ESRD; HD M-W-F; Hypertension; tl1 - PSHx: 03:23 I \T\ D; dialysis shunt; tl1 - Immunization history:: Adult Immunizations unknown. - Social history:: Smoking status: Patient uses tobacco products, smokes one pack cigarettes per day. Patient/guardian denies using alcohol, street drugs. - Ebola Screening: : Patient negative for fever greater than or equal to 101.5 degrees Fahrenheit, and additional compatible Ebola Virus Disease symptoms Patient denies exposure to infectious person Patient denies travel to an Ebola-affected area in the 21 days before illness onset. Screenin:19 Abuse screen: Denies threats or abuse. Nutritional screening: No deficits noted. lc1 Tuberculosis screening: No symptoms or risk factors identified. Fall Risk None identified. Assessment: 03:24 Also complains of no other symptoms. General: Appears distressed, uncomfortable, well lc1 developed, Behavior is calm, cooperative. Pain: Complains of pain in chest Pain does not radiate. Pain currently is 7 out of 10 on a pain scale. Quality of pain is described as pressure, Pain began several days ago Is continuous, Alleviated by nothing. Neuro: No deficits noted. Cardiovascular: Reports chest pain, Rhythm is atrial flutter varies Chest pain is described as Pain is 7 out of 10 on a pain scale. Dialysis shunt: in the right arm. Respiratory: Reports cough that is dry, persistent has been keeping him up at night. GI: No signs and/or symptoms were reported involving the gastrointestinal system. : No signs and/or symptoms were reported regarding the genitourinary system. 03:24 EENT: No signs and/or symptoms were reported regarding the EENT system. lc1 04:22 Reassessment: No changes from previously documented assessment. Patient and/or family lc1 updated on plan of care and expected duration. Pain level reassessed. Patient is alert, oriented x 3, equal unlabored respirations, skin warm/dry/pink. patient resting. 05:00 Reassessment: No changes from previously documented assessment. Patient and/or family lc1 updated on plan of care and expected duration. Pain level reassessed. Patient is alert, oriented x 3, equal unlabored respirations, skin warm/dry/pink. 06:00 Reassessment: No changes from previously documented assessment. Patient and/or family lc1 updated on plan of care and expected duration. Pain level reassessed. Patient is alert, oriented x 3, equal unlabored respirations, skin warm/dry/pink. 07:07 Reassessment: Patient and/or family updated on plan of care and expected duration. Pain ph level reassessed. Pt noted to be diaphoretic, HR 141 A/fib, also c/o chest pain, assisted to sit up in bed and placed on 2L NC for comfort, ERP notified. 07:46 Reassessment: Patient appears in no apparent distress at this time. Patient and/or ph family updated on plan of care and expected duration. Pain level reassessed. Lopressor x [address] Santana, pt HR decreased to 104 remains irregular, pt no longer diaphoretic and reports that chest pain has decreased, remains on o2 at 2L. 09:15 Reassessment: Patient appears in no apparent distress at this time. Patient and/or ph family updated on plan of care and expected duration. Pain level reassessed. Patient is alert, oriented x 3, equal unlabored respirations, skin warm/dry/pink. Pt taken to restroom via wheelchair for BM, accompanied by SO. 10:11 Reassessment: Patient appears in no apparent distress at this time. Patient and/or ph family updated on plan of care and expected duration. Pain level reassessed. Patient is alert, oriented x 3, equal unlabored respirations, skin warm/dry/pink. Pt resting comfortably at this time, respirations even and unlabored, denies chest pain or SOB, waiting for receiving nurse in ICU to be ready for report. Vital Signs: 03:23 BP 149 / 111; Pulse 117; Resp 20; Temp 98.2; Pulse Ox 100% on R/A; Weight 113.4 kg; tl1 Height 6 ft. 3 in. (190.50 cm); Pain 7/10; 03:30 BP 134 / 99; Pulse 118; Resp 18; Pulse Ox 100% on R/A; Pain 7/10; lc1 03:47 BP 138 / 87; Pulse 111; Resp 22; Pulse Ox 100% on R/A; lc1 04:00 BP 142 / 109; Pulse 108; Resp 18; Pulse Ox 99% on R/A; lc1 04:23 BP 145 / 101; Pulse 107; Resp 18; Pulse Ox 100% on R/A; lc1 05:00 BP 142 / 107; Pulse 119; Resp 22; Pulse Ox 97% on R/A; lc1 06:00 BP 142 / 107; Pulse 132; Resp 18; Pulse Ox 100% on R/A; lc1 07:00 BP 163 / 98; Pulse 141; Resp 22; Pulse Ox 100% on 2 lpm NC; ph 07:25 BP 158 / 100; Pulse 118; Resp 18; Pulse Ox 100% on 2 lpm NC; ph 07:35 BP 159 / 92; Pulse 119; Resp 18; Pulse Ox 100% on 2 lpm NC; ph 07:45 BP 153 / 93; Pulse 104; Resp 18; Pulse Ox 100% on R/A; ph 08:24 BP 139 / 102; Pulse 100; Resp 22; Pulse Ox 100% on 2 lpm NC; ph 08:54 BP 151 / 112; Pulse 111; Resp 20; Pulse Ox 100% on 2 lpm NC; ph 09:15 BP 157 / 115; Pulse 104; Resp 18; Pulse Ox 99% on 2 lpm NC; ph 09:45 BP 139 / 108; Pulse 107; Resp 20; Pulse Ox 100% on 2 lpm NC; ph 10:15 BP 147 / 114; Pulse 106; Resp 14; Temp 97.6; Pulse Ox 100% on 2 lpm NC; ph 03:23 Body Mass Index 31.25 (113.40 kg, 190.50 cm) tl1 Vitals: 03:24 Cardiac Rhythm Assessment Atrial flutter. 1 ED Course: 03:02 Patient arrived in ED. ds1 03:18 Derrell Burns MD is Attending Physician. gs 03:18 Denae Sal is Primary Nurse. lc1 03:19 Patient has correct armband on for positive identification. Placed in gown. Bed in low lc1 position. Side rails up X 1. night monitor on. Pulse ox on. NIBP on. 03:20 Triage completed. tl1 03:24 Appears restless. lc1 03:24 EKG completed in triage. Results shown to MD. tl1 03:24 No provider procedures requiring assistance completed. Patient maintains SpO2 lc1 saturation greater than 95% on room air. 03:30 Door closed. Noise minimized. Warm blanket given. lc1 03:43 Inserted saline lock: 20 gauge in left forearm, using aseptic technique. Blood tl1 collected. 04:08 XRAY Chest (1 view) In Process Unspecified. EDMS 05:15 Dorene Santana MD is Hospitalizing Provider. gs 06:00 Awaiting bed assignment. lc1 06:00 Notified ED physician of other calcium gluconate unavailable at this time, ordered to [facility] go ahead and give other meds that were ordered. 06:00 Patient admitted, IV remains in place. lc1 06:12 Patient notified of wait time. lc1 07:00 Report given to RN OZE, DOMINIQUE Lyle. cc3 Administered Medications: 03:44 Drug: Lopressor 5 mg Route: IVP; Site: left forearm; lc1 05:25 Follow up: Response: No adverse reaction lc1 04:21 Drug: Lopressor 5 mg Route: IVP; Site: left forearm; lc1 05:16 Follow up: Response: No adverse reaction lc1 05:25 Follow up: Response: No adverse reaction lc1 05:55 Not Given (med not available): Calcium Gluconate 1 grams IVPB once over 60 mins; (mix tl1 in NS 100 mL) 06:06 Drug: Insulin Regular Human 10 units {Co-Signature: [email or web address] (Ashish Grey RN).} Route: IVP; lc1 Site: left forearm; 06:08 Follow up: Response: No adverse reaction lc1 06:06 Drug: D50W 50 ml Route: IVP; Site: left forearm; lc1 06:08 Follow up: Response: No adverse reaction lc1 07:20 Drug: Metoprolol 5 mg Route: IVP; Site: left hand; ph 07:25 Drug: Metoprolol 5 mg Route: IVP; Site: left hand; ph 07:35 Drug: Metoprolol 5 mg Route: IVP; Site: left hand; ph 10:17 Follow up: Response: No adverse reaction; Cardiac rhythm changed ph 08:00 Drug: Metoprolol 5 mg Route: IVP; Site: left hand; ph 10:17 Follow up: Response: No adverse reaction; Cardiac rhythm changed ph Outcome: 05:15 Decision to Hospitalize by Provider. 06:00 Condition: stable lc1 06:00 Instructed on the need for admit. 11:05 Patient left the ED. sg Signatures: Dispatcher [employer] EDMS Valdo Sosa RN RN sg Svitlana Little ds1 Denae Sal lc1 Gini Benjamin RN RN tl1 Nidia Becerra RN RN Derrell Burns MD MD Lorie Rodriguez 3 Ashish Grey RN [email or web address] Corrections: (The following items were deleted from the chart) 03:36 03:24 : No signs and/or symptoms were reported regarding the genitourinary system. [id number]
--- NOTE | 2019-09-21 05:16 | EDPHYS ---
Physician Documentation [facility] Name: Abhinav John Age: 39 yrs Sex: Male : 1980 Arrival Date: 09/21/2019 Time: 03:02 Bed 7 Private MD: ED Physician Derrell Burns HPI: 09/21 05:11 This 39 yrs old Black Male presents to ER via Ambulatory with complaints of Chest Pain. gs 05:11 The patient or guardian reports chest pain that is located primarily in the anterior gs chest wall. Onset: 1 week(s) ago. The pain does not radiate. Associated signs and symptoms: Pertinent positives: palpitations, Pertinent negatives: abdominal pain, shortness of breath. The chest pain is described as a heaviness. Duration: The patient or guardian reports multiple episodes, that are intermittent, that wax and wane, with no pattern. Modifying factors: The symptoms are alleviated by nothing. the symptoms are aggravated by nothing. Severity of pain: At its worst the pain was mild in the emergency department the pain is unchanged. The patient has experienced similar episodes in the past, a few times. The patient has been recently seen by a physician: [facility] verena padgett. Historical: - Allergies: 03:23 No Known Allergies; tl1 - Home Meds: 03:23 Metoprolol Tartrate Oral [Active]; losartan oral oral [Active]; Insulin: Novolin R tl1 Sub-Q [Active]; Calci-Chew Oral [Active]; - PMHx: 03:23 ESRD; HD M-W-F; Hypertension; tl1 - PSHx: 03:23 I \T\ D; dialysis shunt; tl1 - Immunization history:: Adult Immunizations unknown. - Social history:: Smoking status: Patient uses tobacco products, smokes one pack cigarettes per day. Patient/guardian denies using alcohol, street drugs. - Ebola Screening: : Patient negative for fever greater than or equal to 101.5 degrees Fahrenheit, and additional compatible Ebola Virus Disease symptoms Patient denies exposure to infectious person Patient denies travel to an Ebola-affected area in the 21 days before illness onset. ROS: 05:11 All other systems are negative. gs Exam: 05:11 Head/Face: Normocephalic, atraumatic. Eyes: Pupils equal round and reactive to light, gs extra-ocular motions intact. Lids and lashes normal. Conjunctiva and sclera are non-icteric and not injected. Cornea within normal limits. Periorbital areas with no swelling, redness, or edema. ENT: Nares patent. No nasal discharge, no septal abnormalities noted. Tympanic membranes are normal and external auditory canals are clear. Oropharynx with no redness, swelling, or masses, exudates, or evidence of obstruction, uvula midline. Mucous membranes moist. Neck: Trachea midline, no thyromegaly or masses palpated, and no cervical lymphadenopathy. Supple, full range of motion without nuchal rigidity, or vertebral point tenderness. No Meningismus. Chest/axilla: Normal chest wall appearance and motion. Nontender with no deformity. No lesions are appreciated. 05:11 Constitutional: The patient appears alert, awake. 05:11 Cardiovascular: Rate: tachycardic, Rhythm: irregular, Pulses: no pulse deficits are appreciated. 05:11 ECG was reviewed by the Attending Physician. Vital Signs: 03:23 BP 149 / 111; Pulse 117; Resp 20; Temp 98.2; Pulse Ox 100% on R/A; Weight 113.4 kg; tl1 Height 6 ft. 3 in. (190.50 cm); Pain 7/10; 03:30 BP 134 / 99; Pulse 118; Resp 18; Pulse Ox 100% on R/A; Pain 7/10; lc1 03:47 BP 138 / 87; Pulse 111; Resp 22; Pulse Ox 100% on R/A; lc1 04:00 BP 142 / 109; Pulse 108; Resp 18; Pulse Ox 99% on R/A; lc1 04:23 BP 145 / 101; Pulse 107; Resp 18; Pulse Ox 100% on R/A; lc1 05:00 BP 142 / 107; Pulse 119; Resp 22; Pulse Ox 97% on R/A; lc1 06:00 BP 142 / 107; Pulse 132; Resp 18; Pulse Ox 100% on R/A; lc1 07:00 BP 163 / 98; Pulse 141; Resp 22; Pulse Ox 100% on 2 lpm NC; ph 07:25 BP 158 / 100; Pulse 118; Resp 18; Pulse Ox 100% on 2 lpm NC; ph 07:35 BP 159 / 92; Pulse 119; Resp 18; Pulse Ox 100% on 2 lpm NC; ph 07:45 BP 153 / 93; Pulse 104; Resp 18; Pulse Ox 100% on R/A; ph 08:24 BP 139 / 102; Pulse 100; Resp 22; Pulse Ox 100% on 2 lpm NC; ph 08:54 BP 151 / 112; Pulse 111; Resp 20; Pulse Ox 100% on 2 lpm NC; ph 09:15 BP 157 / 115; Pulse 104; Resp 18; Pulse Ox 99% on 2 lpm NC; ph 09:45 BP 139 / 108; Pulse 107; Resp 20; Pulse Ox 100% on 2 lpm NC; ph 10:15 BP 147 / 114; Pulse 106; Resp 14; Temp 97.6; Pulse Ox 100% on 2 lpm NC; ph 03:23 Body Mass Index 31.25 (113.40 kg, 190.50 cm) tl1 MDM: 03:18 Patient medically screened. gs 05:11 Differential diagnosis: abnormal EKG, coronary artery disease. Data reviewed: vital gs signs, nurses notes, lab test result(s), EKG, radiologic studies, and as a result, I will admit patient. Counseling: I had a detailed discussion with the patient and/or guardian regarding: the historical points, exam findings, and any diagnostic results supporting the discharge/admit diagnosis, the need for further work-up and treatment in the hospital. 09/21 03:30 Order name: Basic Metabolic Panel; Complete Time: 05:15 gs 09/21 03:30 Order name: CBC with Diff gs 09/21 03:30 Order name: LFT's; Complete Time: 05:15 gs 09/21 03:30 Order name: Magnesium; Complete Time: 05:15 gs 09/21 03:30 Order name: NT PRO-BNP; Complete Time: 05:15 gs 09/21 03:30 Order name: PT-INR; Complete Time: 04:03 gs 09/21 03:30 Order name: Troponin (emerg Dept Use Only); Complete Time: 05:15 gs 09/21 04:02 Order name: CBC Smear Scan EDMS 09/21 05:36 Order name: CBC with Automated Diff EDMS 09/21 05:36 Order name: CBC with Automated Diff EDMS 09/21 05:37 Order name: Comprehensive Metabolic Panel EDMS 09/21 05:37 Order name: Comprehensive Metabolic Panel EDMS 09/21 05:37 Order name: Protime (+INR) EDAR 09/21 05:37 Order name: Protime (+INR) EDAR 09/21 03:30 Order name: XRAY Chest (1 view) 09/21 03:30 Order name: EKG; Complete Time: 03:31 09/21 05:36 Order name: CONS Pharmacy Consult EDAR 09/21 05:36 Order name: CONS Physician Consult EDAR 09/21 05:37 Order name: PTT, Activated Partial Thromb EDAR 09/21 05:37 Order name: PTT, Activated Partial Thromb EDAR 09/21 05:37 Order name: Troponin I EDAR 09/21 05:37 Order name: Troponin I EDAR 09/21 05:37 Order name: Troponin I [facility] 09/21 03:30 Order name: Cardiac monitoring; Complete Time: 03:33 09/21 03:30 Order name: EKG - Nurse/Tech; Complete Time: 03:33 09/21 03:30 Order name: IV Saline Lock; Complete Time: 04:17 09/21 03:30 Order name: Labs collected and sent; Complete Time: 04:17 09/21 03:30 Order name: O2 Per Protocol; Complete Time: 04:17 09/21 03:30 Order name: O2 Sat Monitoring; Complete Time: 04:17 09/21 05:36 Order name: CONS Physician Consult [facility] 09/21 05:36 Order name: Renal EDAR 09/21 05:36 Order name: EKG Electrocardiogram EDAR 09/21 05:36 Order name: EKG Electrocardiogram [facility] EC:11 Rate is 116 beats/min. Rhythm is regular. QRS interval is normal. QT interval is gs normal. Clinical impression: Atrial Fibrillation and Atrial Flutter. Interpreted by me. Administered Medications: 03:44 Drug: Lopressor 5 mg Route: IVP; Site: left forearm; lc1 05:25 Follow up: Response: No adverse reaction lc1 04:21 Drug: Lopressor 5 mg Route: IVP; Site: left forearm; lc1 05:16 Follow up: Response: No adverse reaction lc1 05:25 Follow up: Response: No adverse reaction lc1 05:55 Not Given (med not available): Calcium Gluconate 1 grams IVPB once over 60 mins; (mix tl1 in NS 100 mL) 06:06 Drug: Insulin Regular Human 10 units {Co-Signature: [email or web address] (Ashish Grey RN).} Route: IVP; lc1 Site: left forearm; 06:08 Follow up: Response: No adverse reaction lc1 06:06 Drug: D50W 50 ml Route: IVP; Site: left forearm; lc1 06:08 Follow up: Response: No adverse reaction lc1 07:20 Drug: Metoprolol 5 mg Route: IVP; Site: left hand; ph 07:25 Drug: Metoprolol 5 mg Route: IVP; Site: left hand; ph 07:35 Drug: Metoprolol 5 mg Route: IVP; Site: left hand; ph 10:17 Follow up: Response: No adverse reaction; Cardiac rhythm changed ph 08:00 Drug: Metoprolol 5 mg Route: IVP; Site: left hand; ph 10:17 Follow up: Response: No adverse reaction; Cardiac rhythm changed ph Disposition: 09/21/19 05:15 Hospitalization ordered by Dorene Santana for Inpatient Admission. Preliminary diagnosis is Atrial fibrillation and flutter. - Bed requested for Intensive Care Unit. - Status is Inpatient Admission. sg - Condition is Stable. - Problem is an acute exacerbation. - Symptoms have improved. UTI on Admission? No Signatures: Dispatcher [employer] EDMS Jennifer Salgado RN DOMINIQUE Emmanuelle Hernandez RN DOMINIQUE Valdo Sosa RN RN Denae Sal lc1 Gini Benjamin, RN RN tl1 Nidia Becerra RN DOMINIQUE Derrell Burns MD MD Lisseth Galeas RN [email or web address] Corrections: (The following items were deleted from the chart) 05:41 05:15 Hospitalization Ordered by Dorene Santana MD for Inpatient Admission. Preliminary diagnosis is Atrial fibrillation and flutter. Bed requested for Telemetry/MedSurg (Inpatient). Status is Inpatient Admission. Condition is Stable. Problem is an acute exacerbation. Symptoms have improved. UTI on Admission? No. 09:22 05:41 09/21/2019 05:15 Hospitalization Ordered by Dorene Santana MD for Inpatient eb Admission. Preliminary diagnosis is Atrial fibrillation and flutter. Bed requested for Telemetry/MedSurg (Inpatient). Status is Inpatient Admission. Condition is Stable. Problem is an acute exacerbation. Symptoms have improved. UTI on Admission? No. mw 09:46 09:22 09/21/2019 05:15 Hospitalization Ordered by Dorene Santana MD for Inpatient dw Admission. Preliminary diagnosis is Atrial fibrillation and flutter. Bed requested for Intensive Care Unit. Status is Inpatient Admission. Condition is Stable. Problem is an acute exacerbation. Symptoms have improved. UTI on Admission? No. eb 11:05 09:46 09/21/2019 05:15 Hospitalization Ordered by Dorene Santana MD for Inpatient sg Admission. Preliminary diagnosis is Atrial fibrillation and flutter. Bed requested for Intensive Care Unit. Status is Inpatient Admission. Condition is Stable. Problem is an acute exacerbation. Symptoms have improved. UTI on Admission? No. dw
[2019-09-21] MEDS ORDERED: ONDANSETRON 4 MG/2 ML VIAL IV PRN (05:32)
[2019-09-21] MEDS ORDERED: ACETAMINOPHEN 500 MG TAB PO PRN (05:32)
[2019-09-21] MEDS ORDERED: MORPHINE 4 MG/ML SYR IV PRN (05:32)
[2019-09-21] MEDS ORDERED: INSULIN -REGULAR HUMAN 50 UNIT/0.5 ML ML ONE (05:35)
[2019-09-21] MEDS ORDERED: NA CHLORIDE 0.9% 0 ML IV ONE (05:36)
[2019-09-21] MEDS ORDERED: D50W 25 GM/50 ML SYRINGE IV ONE (05:36)
[2019-09-21 05:37] LABS: Urine White Blood Cell Casts OK
[2019-09-21 05:38] LABS: Anisocytosis 2+; Blood Morphology Comment NOTED (NOT SEEN); Hypochromasia 2+; Platelet Estimate ADEQ
[2019-09-21] MEDS ORDERED: SOD POLYSTYREN SUL 15 GM/60 ML UCUP PO ONE (06:30)
[2019-09-21] MEDS ORDERED: METOPROLOL TAR 50 MG TAB ONE (07:14)
--- NOTE | 2019-09-21 07:31 | RAD REPORT ---
EXAM DESCRIPTION: RAD - Chest Single View - 09/21/2019 4:07 am CLINICAL HISTORY: Chest pain, cough COMPARISON: February 13 TECHNIQUE: AP portable chest image was obtained 0341 hours . FINDINGS: No focal consolidation. Heart, vasculature and lung markings are all increased over compar courtney. Trachea is midline. No measurable pleural effusion and no pneumothorax. No acute bony abnormali ty seen. No acute aortic findings suspected. IMPRESSION: Mild failure/ volume overload pattern.
[2019-09-21] MEDS: METOPROLOL TARTRATE 5 MG/5 ML INJ IV SCH ×3 (08:00→08:10)
--- NOTE | 2019-09-21 08:28 | EKG ---
Test Date: 2019-09-21 Test Time: 03:12:45 Personalization Specialist: VIVI MEASUREMENT RESULTS: Intervals: Rate: 116 CO: QRSD: 84 QT: 328 QTc: 455 [place]: P: CO: QRS: -47 T: 85 INTERPRETIVE STATEMENTS: Atrial flutter with variable AV block Left anterior fascicular block Abnormal ECG Compared to ECG 02/13/2019 09:15:28 Left anterior fascicular block now present Sinus rhythm no longer present Electronically Signed On 09-21-19 08:27:30 CDT by Rj Glover
--- NOTE | 2019-09-21 08:56 | P.PN ---
Subjective Date of Service: 09/21/19 Primary Care Provider: Dr. Dunlap Chief Complaint: Chest Pain, Atrial Fib Subjective: Improving, Doing well This is a 39 y/o M patient that was admitted early this morning for chest pain and new onset Atrial Fib. Rate controlled at this point after [address] Glover saw patient and we will start patient on Eliquis 2.5 mg BID for now. At this time patient will not have Cardioversion. Dr. Olguin. Patient doing well otherwise at this time <Edenilson Luna - Last Filed: 09/21/19 08:46> Date of Service: 09/21/19 <Michael Mathur - Last Filed: 09/21/19 16:45> Review of Systems General: Unremarkable Eyes: Unremarkable ENT: Unremarkable Respiratory: Unremarkable Cardiovascular: Chest Pain, Palpitations Gastrointestinal: Unremarkable Genitourinary: Unremarkable Musculoskeletal: Unremarkable Integumentary: Unremarkable Neurological: Unremarkable Lymphatics: Unremarkable <Edenilson Luna - Last Filed: 09/21/19 08:46> Physical Examination - Vital Signs Temperature: 98.2 F Blood Pressure: 152/100 Pulse: 99 Respirations: 18 Pulse Ox (%): 100 - Physical Exam General: Alert, In no apparent distress, Oriented x3, Cooperative HEENT: Normocephalic, PERRLA, Mucous membr. moist/pink, EOMI Neck: Supple, 2+ carotid pulse no bruit, JVD not distended, No Thyromegaly, No LAD Respiratory: Clear to auscultation bilaterally, Normal air movement Cardiovascular: Normal pulses, Normal S1 S2, No gallops, No rubs, No murmurs, Edema, Irregular heart rate/rhythm Capillary refill: <2 Seconds Gastrointestinal: Normal bowel sounds, Soft and benign, Non-distended, No ascites, No tenderness, No masses, No rebound, No guarding Musculoskeletal: No clubbing, No swelling, No contractures, No erythema, No tenderness, No warmth Integumentary: No rashes, No breakdown, No significant lesion, No tenderness/ swelling, No erythema, No warmth, No cyanosis Neurological: Normal gait, Normal speech, Normal strength at 5/5 x4 extr, Normal tone, Sensation intact, Cranial nerves 3-12 intact, Normal reflexes 2+, Normal affect Lymphatics: No axilla or inguinal lymphadenopathy - Studies Laboratory Data (last 24 hrs) 09/21/19 03:40: PT 13.8 H, INR 1.18 09/21/19 03:40: WBC 7.3, Hgb 8.5 L, Hct 25.6 L, Plt Count 285 09/21/19 03:40: Sodium 138, Potassium 5.9 H*, BUN 85 H, Creatinine 13.30 H*, Glucose 160 H, Magnesium 2.6 H, Total Bilirubin 0.3, AST 13 L, ALT 29, Alkaline Phosphatase 102 Medications List Reviewed: Yes <Edenilson Luna - Last Filed: 09/21/19 08:46> - Studies Laboratory Data (last 24 hrs) 09/21/19 03:40: PT 13.8 H, INR 1.18 09/21/19 03:40: WBC 7.3, Hgb 8.5 L, Hct 25.6 L, Plt Count 285 09/21/19 03:40: Sodium 138, Potassium 5.9 H*, BUN 85 H, Creatinine 13.30 H*, Glucose 160 H, Magnesium 2.6 H, Total Bilirubin 0.3, AST 13 L, ALT 29, Alkaline Phosphatase 102 <Michael Mathur - Last Filed: 09/21/19 16:45> Assessment And Plan - Current Problems (Diagnosis) (1) Atrial fibrillation with RVR Current Visit: Yes Status: Acute (2) Anemia Current Visit: No Status: Chronic Qualifiers: Anemia type: due to chronic kidney disease Chronic kidney disease stage: on chronic dialysis Qualified Code(s): N18.6 - End stage renal disease; D63.1 - Anemia in chronic kidney disease; Z99.2 - Dependence on renal dialysis (3) Diabetes mellitus Current Visit: No Status: Chronic Qualifiers: Diabetes mellitus type: type 2 Diabetes mellitus chcf insulin use: with chcf use Diabetes mellitus complication status: with kidney complications Diabetes mellitus complication detail: with chronic kidney disease Chronic kidney disease stage: on chronic dialysis Qualified Code(s) : E11.22 - Type 2 diabetes mellitus with diabetic chronic kidney disease; N18.6 - End stage renal disease; Z79.4 - dedicated intermodal truck driver (current) use of insulin; Z99.2 - Dependence on renal dialysis (4) ESRD (end stage renal disease) Current Visit: No Status: Chronic (5) Hypertension Current Visit: No Status: Chronic Qualifiers: Hypertension type: essential hypertension Qualified Code(s): I10 - Essential (primary) hypertension (6) Morbid obesity Current Visit: No Status: Chronic - Plan Patient will be rate controlled on metoprolol and will have Eliquis started. Patient will be dialized today. Blood pressure along with electrolytes will be closely monitored. Glucose with be managed with insulin moderate scale Discharge Plan: Home Plan to discharge in: 48 Hours - Code Status/Comfort Care Code Status Assessed: Yes Code Status: Full Code Critical Care: No Time Spent Managing PTS Care (In Minutes): 30 <Edenilson Luna - Last Filed: 09/21/19 08:46> Discharge Plan: Home Plan to discharge in: Greater than 2 days Physician Review Additional Text: Impression: Chest pain with atrial fibrillation with RVR End-stage renal disease on hemodialysis with hyperkalemia Hypertension Chronic systolic CHF Anemia of chronic disease History of noncompliance Plan: Chest pain with atrial fibrillation with RVR: Patient remained stable. Will transfer patient from ICU to the telemetry floor. Spoke with cardiology. No indication for cardioversion at this time. Continue with metoprolol with good control. Continue with Eliquis as this has been initiated. Will continue monitor closely. Await further recommendation. End-stage renal disease on hemodialysis with hyperkalemia: Patient to receive hemodialysis. Will monitor closely. Await further recommendations from nephrology. Chronic systolic CHF: Continue with diuresis-dialysis. Will monitor closely. Ejection fraction around 35%. Hypertension: Continue with medication. Will monitor and adjust appropriately. Anemia of chronic disease: Will monitor closely. History of noncompliance: Patient with poor compliance. Time Spent Managing PTS Care (In Minutes): 60 <Michael Mathur - Last Filed: 09/21/19 16:45>
[2019-09-21] MEDS ORDERED: SOD POLYSTYREN SUL 15 GM/60 ML UCUP ONE (09:13)
[2019-09-21] MEDS: METOPROLOL TAR 25 MG TAB PO SCH ×2 (09:15→18:07)
[2019-09-21] MEDS: APIXABAN 2.5 MG TABLET PO SCH ×2 (09:15→22:11)
[2019-09-21 12:24] LABS: Thyroid Stimulating Hormone 1.02 uIU/mL (0.360-3.740)
--- NOTE | 2019-09-21 13:55 | ECHO ---
HEIGHT: 6 ft 3 in WEIGHT: 239 lb 6.4 oz DATE OF STUDY: 09/21/[address]: Dorene Santana MD 2-DIMENSIONAL: YES M.MODE: YES DOPPLER: YES COLOR FLOW: YES TDS: NO PORTABLE: NO DEFINITY: NO BUBBLE STUDY: NO DIAGNOSIS: ATRIAL FLUTTER CARDIAC HISTORY: CATHERIZATION: NO SURGERY: NO PROSTHETIC VALVE: NO PACEMAKER: NO MEASUREMENTS (cm) DIASTOLIC (NORMALS) SYSTOLIC (NORMALS) IVSd 1.3 (0.6-1.2) LA Diam 4.4 (1.9-4.0) LVEF 35-40% LVIDd 4.9 (3.5-5.7) LVIDs 4.1 (2.0-3.5) %FS 16% LVPWd 1.6 (0.6-1.2) Ao Diam 3.2 (2.0-3.7) 2 DIMENSIONAL ASSESSMENT: RIGHT ATRIUM: NORMAL LEFT ATRIUM: DILATED RIGHT VENTRICLE: NORMAL LEFT VENTRICLE: LEFT VENTRICULAR HYPERTROPHY TRICUSPID VALVE: NORMAL MITRAL VALVE: NORMAL PULMONIC VALVE: NORMAL AORTIC VALVE: NORMAL PERICARDIAL EFFUSION: NONE AORTIC ROOT: NORMAL LEFT VENTRICULAR WALL MOTION: MODERATE GLOBAL HYPOKINESIS. DOPPLER/COLOR FLOW: TRACE MITRAL REGURGITATION. MILD TRICUSPID REGURGITATION. COMMENTS: MODERATE GLOBAL HYPOKINESIS. LEFT VENTRICULAR EJECTION FRACTION 35-40%. LEFT VENTRICULAR HYPERTROPHY. LEFT ATRIAL ENLARGEMENT, NO THROMBUS. ATRIAL FIBRILLATION. TECHNOLOGIST: Jim THOMAS
--- NOTE | 2019-09-21 13:57 | P.HP ---
Certification for Inpatient Patient admitted to: Inpatient With expected LOS: >2 Midnights Patient will require the following post-hospital care: None Practitioner: I am a practitioner with admitting privileges, knowledge of patient current condition, hospital course, and medical plan of care. Services: Services provided to patient in accordance with Admission requirements found in Title 42 Section 412.3 of the Code of Federal Regulations Patient History Date of Service: 09/21/19 Reason for admission: Chest Pain, Atrial Fib History of Present Illness: patient is a 39-year-old gentleman with a history of end-stage renal disease. He has poorly-controlled hypertension and diabetes. He was found have atrial fibrillation with rapid ventricular response. He was recently at [facility] [place] and he left against medical advice when he was told he would be cardioverted. He went to dialysis yesterday and was told to come to the ER. He did not come to the ER until after midnight. He was in a flutter with rapid ventricular response. He was given IV beta-alexandro and his heart rate has improved. When I came down to see him he went back into a flutter with rapid ventricular response. He was given multiple doses of Lopressor. His heart rate has improved. He will be given anticoagulation and will get cardiology and nephrology consultation. Allergies No Known Allergies Allergy (Unverified 06/25/12 08:51) Home Medications: Cinacalcet HCl [Sensipar*] 2 tab PO DAILY AT SUPPER 02/17/19 Metoprolol Tartrate [Lopressor*] 25 mg PO DAILY 02/17/19 Patiromer Calcium Sorbitex [Veltassa] 1 appl PO DAILY 09/21/19 Sulfamethoxazole/Trimethoprim [Sulfamethoxazole-Tmp Ss Tablet] 1 tab PO BID - Past Medical/Surgical History Has patient received pneumonia vaccine in the past: No Diabetic: Yes -: IDDM -: Kidney disease -: I & D buttock - Family History Father Medical History: Hypertension, Diabetes - Social History Smoking Status: Current every day smoker Alcohol use: No CD- Drugs: No Caffeine use: No Place of Residence: Home Review of Systems 10-point ROS is otherwise unremarkable Physical Examination - Vital Signs Temperature: 97.6 F Blood Pressure: 155/111 Pulse: 107 Respirations: 17 Pulse Ox (%): 100 - Physical Exam General: Alert, In no apparent distress, Oriented x3 HEENT: Atraumatic, PERRLA, Mucous membr. moist/pink, EOMI, Sclerae nonicteric Neck: Supple, 2+ carotid pulse no bruit, No LAD, Without JVD or thyroid abnormality Respiratory: Clear to auscultation bilaterally, Normal air movement Cardiovascular: Irregular heart rate/rhythm, Systolic murmur Gastrointestinal: Normal bowel sounds, Soft and benign, Non-distended, No tenderness Musculoskeletal: No tenderness Integumentary: Other ( Fistula in the right arm) Neurological: Normal gait, Normal speech, Normal strength at 5/5 x4 extr, Normal tone, Normal affect Lymphatics: No axilla or inguinal lymphadenopathy - Studies Laboratory Data (last 24 hrs) 09/21/19 03:40: PT 13.8 H, INR 1.18 09/21/19 03:40: WBC 7.3, Hgb 8.5 L, Hct 25.6 L, Plt Count 285 09/21/19 03:40: Sodium 138, Potassium 5.9 H*, BUN 85 H, Creatinine 13.30 H*, Glucose 160 H, Magnesium 2.6 H, Total Bilirubin 0.3, AST 13 L, ALT 29, Alkaline Phosphatase 102 Assessment & Plan - Problems (Diagnosis) (1) Atrial fibrillation with RVR Current Visit: Yes Status: Acute (2) Diabetes mellitus Current Visit: No Status: Chronic Qualifiers: Diabetes mellitus type: type 2 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: with watcher automat long goods use Diabetes mellitus complication status: with kidney complications Diabetes mellitus complication detail: with chronic kidney disease Chronic kidney disease stage: on chronic dialysis Qualified Code(s) : E11.22 - Type 2 diabetes mellitus with diabetic chronic kidney disease; N18.6 - End stage renal disease; 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 Will continue medications for rate control and anticoagulation 2. Continue with strict blood pressure control 3. Echocardiogram 4. Cardiology consultation and nephrology consultation for hemodialysis 5. we also need to check thyroid studies 6. GI and DVT prophylaxis Discharge Plan: Home Plan to discharge in: Greater than 2 days - Advance Directives Does patient have a Living Will: No Does patient have a Durable POA for Healthcare: No - Code Status/Comfort Care Code Status: Full Code Critical Care: Yes Time Spent Managing PTS Care (In Minutes): 60
--- NOTE | 2019-09-21 15:20 | CON ---
Date of Consultation: 09/21/2019 Patient admitted on 09/21/[address] Santana. I saw the patient on 09/21/2019. Reason For Consultation: Recent onset atrial fibrillation. History Of Present Illness: Mr. John is a 39-year-old black male who was on dialysis, has really n o other significant past medical history. Apparently, he was in [facility] for what appeared to be atrial fibrillation. No planning to do a cardioversion on him, but he left AMA. Now, his atrial fibrillation is a week old. Came in with irregular heartbeat, shortness of breath. No chest pain. No syncope. Denied fever or chills. Denied any explained nausea, vomiting, or diaphoresis. He gets dialyzed Wednesday, Wednesday, Wednesday. Past Medical History: End-stage renal disease, on hemodialysis. Allergies: NONE. Review of Systems: Negative. Social History: Negative. Family History: Negative. Medications: At home include metoprolol, Renvela, Sensipar, and Levaquin. Physical Examination: General: Mr. John was rather somnolent, but alert and oriented x3. Vital Signs: Stable. Afebrile. Atrial fibrillation at a rate of 120. HEENT: Negative. Neck: Supple with no bruit. Chest: Clear to auscultation and percussion. Cardiac: Revealed atrial fibrillation. Abdomen: Obese, but benign. Extremities: Revealed no clubbing, cyanosis, or edema. Pulses were present distally bilaterally. Neurologic: He was nonfocal. Skin: Dry and intact. Diagnostic Data: Showed a creatinine of 13.3. Hemoglobin 8.5. Potassium is 5.9. Troponin was nega [place]ive. BNP was [address]. EKG showed atrial fibrillation. X-ray is negative. Impression And Plan: 1.Recent onset atrial fibrillation more than a week old. The patient needs to be placed on Eliquis 5 mg b.i.d. He needs to be on beta-alexandro. We had to do an echocardiogram, which is pending. Thyr oid level pending. If he does not convert with beta-blockers, we will switch him to Betapace that do es not work. We will plan a cardioversion in 3 weeks after starting the Eliquis. 2.End-stage renal disease. 3.Anemia secondary to renal disease. 4.Hyperkalemia. 5.Elevated BNP secondary to renal disease. Echocardiogram is pending. We will continue to follow. WIL/BENY Voice ID: [id number] Report ID: [id number]
[2019-09-21] MEDS ORDERED: D50W 25 GM/50 ML SYRINGE IV PRN (16:58)
[2019-09-21] MEDS ORDERED: GLUCAGON 1 MG/VIAL IM PRN (16:58)
[2019-09-21] MEDS ORDERED: CINACALCET HCL 30 MG TAB PO SCH (17:00)
[2019-09-21] MEDS: INSULIN -REGULAR HUMAN 50 UNIT/0.5 ML ML SQ SCH ×2 (17:20→22:12)
[2019-09-21] MEDS ORDERED: CINACALCET HCL 30 MG TAB PO ONE (19:00)
[2019-09-21] MEDS ORDERED: EPOETIN 4,000 UNIT/ML VIAL IV SCH (22:00)
[2019-09-21 23:48] LABS: Barbiturates NEGATIVE (NEGATIVE); Benzodiazepines NEGATIVE (NEGATIVE); Cocaine NEGATIVE (NEGATIVE); METHAMPHETAM NEGATIVE (NEGATIVE); Methadone NEGATIVE (NEGATIVE); Opiates NEGATIVE (NEGATIVE); Phencyclidine NEGATIVE (NEGATIVE); THC Cannibis POSITIVE (NEGATIVE)
--- NOTE | 2019-09-22 03:03 | CON ---
Date of Consultation: 09/21/2019 Reason For Consultation: Elevated BUN and creatinine, hyperkalemia, over volume. History Of Present Illness: This is a 39-year-old gentleman, well known to me from dialysis with sig nificant past medical history of end-stage renal disease on hemodialysis Wednesday, Wednesday, Wednesday at [facility]; hypertension, hyperlipidemia. Patient was poor compliant with the d ialysis and with fluid restriction, patient came to the dialysis, was tachycardic, sent [facility], in the ER found to have atrial fibrillation with RVR, referred cardioversion. The patient s igned against medical advice. The patient came to the dialysis next day, found to have AFib with RVR . Heart rate was 130. For that reason, referred to the ER. Patient did not go directly, patient ca me after almost 8 hour with the same symptoms. Primary workup showed hypertension and over volume wi th hyperkalemia, atrial fibrillation with RVR giving metoprolol. His heart rate started slowing down . As I mentioned, his workup showed over volume with hyperkalemia. Patient missed dialysis for that reason we have been consulted. Past Medical History: 1.Hypertension. 2.Hyperlipidemia. 3.End-stage renal disease, on hemodialysis, Wednesday, Wednesday, Wednesday. 4.Secondary hyperparathyroidism. Allergies: NO KNOWN DRUG ALLERGIES. Home Medications: Include Sensipar, metoprolol, Bactrim. Family History: Positive for hypertension. Social History: Active smoker, occasional alcohol. Denies drugs abuse. Review of Systems: Head and Neck: No red eye. No ear pain. GI: No nausea, no vomiting. : No polyuria, no dysuria, no hematuria. Automatic Machines Supervisor: Not applicable. Respiratory: Has shortness of breath. Cardiovascular: Has palpitation. Endocrine: No polydipsia. Skin: No rash. Neuro: Has neuropathy. Musculoskeletal: No joint pain. Physical Examination: Vital Signs: When I saw the patient blood pressure 156/80, pulse of 110 and regular. Abdomen: Soft, nontender. Chest: Crackles bilateral base. Heart: S1, S2. Tachycardic and regular. Extremities: Plus edema. Neurologic: Alert and oriented x3. No focal. Laboratory Data: Echocardiogram: Ejection fraction of 35%, moderate global hypokinesia. WBC 7.3, H and H 8.5/25.6, platelets 285. Sodium 138, potassium 5.9, bicarb 25, BUN 85, creatinine 13.3, calci um 8.2, magnesium 2.6. BNP 59,000. TSH of 1. Urinalysis was not done. Assessment And Plan: 1.End-stage renal disease, hyperkalemia, over volume. I am going to go ahead and do dialysis today on low-potassium bath and we will do another session of dialysis tomorrow. 2.Secondary hyperparathyroidism. Resume Sensipar and binder. 3.Anemia of chronic kidney disease. Continue Epogen. 4.Hypertension. We will utilize blood pressure for more ultrafiltration. 5.Atrial fibrillation with rapid ventricular rate. We will follow up with Cardiology. 6.Congestive heart failure. We will try to optimize the fluid status. We will follow up with Cardi ology. 7.Hyperkalemia. Patient is going to be dialyzed on low-potassium bath. 8.Over volume. Patient is going to be challenged and we will do another session of dialysis tomorro w. HILARIO/BENY Voice ID: [id number] Report ID: [id number]
[2019-09-22 06:22] LABS: Absolute Lymphocytes (CBC) 1.1 K/uL (0.7-4.9); Basophils % 1.6 % (0-1.3); Hematocrit 26.3 % (39.6-49.0); Lymphocytes % 16.5 % (15.3-44.8); MPV 6.5 fL (7.6-11.3); RBC Red Blood Cell Count 3.28 M/uL (4.33-5.43)
[2019-09-22 06:24] LABS: Protime INR 1.2
[2019-09-22 06:51] LABS: Albumin 3.1 g/dL (3.4-5.0); Bilirubin Total 0.4 mg/dL (0.2-1.0); Phosphorus 7.2 mg/dL (2.5-4.9); Potassium 5.2 mmol/L (3.5-5.1); Protein, Total 7.5 g/dL (6.4-8.2)
[2019-09-22] MEDS: METOPROLOL TAR 25 MG TAB PO SCH (06:58)
[2019-09-22] MEDS ORDERED: METOPROLOL TAR 50 MG TAB PO ONE (07:13)
[2019-09-22] MEDS: INSULIN -REGULAR HUMAN 50 UNIT/0.5 ML ML SQ SCH ×4 (07:30→20:43)
[2019-09-22] MEDS: [UNRECOGNIZED DRUG - OTHER] PO SCH (09:00)
[2019-09-22] MEDS: APIXABAN 2.5 MG TABLET PO SCH ×2 (09:01→20:42)
--- NOTE | 2019-09-22 10:14 | P.PN ---
Subjective Date of Service: 09/22/19 Primary Care Provider: Dr. Dunlap Chief Complaint: Chest Pain, Atrial Fib Subjective: Improving (Blood pressure is still slightly elevated with heart rate around 100-120. Patient stable this time. No chest pain noted.) Physical Examination - Vital Signs Temperature: 97.9 F Blood Pressure: 155/87 Pulse: 120 Respirations: 16 Pulse Ox (%): 99 - Physical Exam General: Alert, In no apparent distress, Oriented x3, Cooperative HEENT: Atraumatic Neck: Supple Respiratory: Clear to auscultation bilaterally, Normal air movement Cardiovascular: Irregular heart rate/rhythm (AFib with rate around 100-120) Gastrointestinal: Normal bowel sounds, Soft and benign, Non-distended, No tenderness, No masses, No rebound, No guarding Musculoskeletal: No erythema, No tenderness, No warmth Integumentary: No erythema, No warmth, No cyanosis Neurological: Normal speech, Normal strength at 5/5 x4 extr, Normal tone, Normal affect - Studies Medications List Reviewed: Yes Assessment & Plan Discharge Plan: Home Plan to discharge in: 48 Hours Physician Review Additional Text: Impression: Chest pain with atrial fibrillation with RVR End-stage renal disease on hemodialysis with hyperkalemia Hypertension Chronic systolic CHF Anemia of chronic disease History of noncompliance Plan: Chest pain with atrial fibrillation with RVR: Patient remained stable. Blood pressure ran heart rate still slightly elevated. Will increase metoprolol to 100 mg 1 pill twice daily. Will discuss with cardiology for further recommendation. Patient remains on Eliquis for anti coagulation therapy. Likely discharge in the next 1-2 days with clinical improvement and clearance by Cardiology. End-stage renal disease on hemodialysis with hyperkalemia: Nephrology consulted. Patient will require dialysis. Chronic systolic CHF: Continue with diuresis-dialysis. Will monitor closely. Echo done yesterday showed Ejection fraction around 35%. Hypertension: Medication adjusted. Will continue to adjust appropriately peer Anemia of chronic disease: Will monitor closely. History of noncompliance: Compliance with medication addressed in detail. Time Spent Managing Pts Care (In Minutes): 55
--- NOTE | 2019-09-22 11:59 | EKG ---
Test Date: 2019-09-22 Test Time: 07:44:38 Industrial Roofer: JATIN MEASUREMENT RESULTS: Intervals: Rate: 112 NV: QRSD: 84 QT: 318 QTc: 434 [place]: P: 72 NV: QRS: -49 T: 74 INTERPRETIVE STATEMENTS: Atrial flutter with variable AV block Left anterior fascicular block Abnormal ECG Compared to ECG 09/21/2019 03:12:45 No significant changes Electronically Signed On 09-22-19 11:58:12 CDT by Rj Glover
[2019-09-22] MEDS ORDERED: SEVELAMER CARBONATE 800 MG TABLET PO SCH (12:00)
--- NOTE | 2019-09-22 12:17 | P.PN ---
Subjective Date of Service: 09/22/19 Primary Care Provider: Dr. Dunlap Chief Complaint: Chest Pain, Atrial Fib Subjective: Improving Pt with Hx of ESRD , CHF and Afib admitted recently to [facility] for Afib with RVR ,plan was for cardioversion vs ablation , pt signed AMA presnted with Afib and RVR Today seen and examined during HD no new complaints HR still elevated metoprolol increased cardiology evaluation Physical Examination - Vital Signs Temperature: 97.9 F Blood Pressure: 155/87 Pulse: 120 Respirations: 16 Pulse Ox (%): 99 - Physical Exam General: In no apparent distress, Oriented x3 HEENT: Atraumatic Neck: Supple, Without JVD or thyroid abnormality Respiratory: Clear to auscultation bilaterally, Normal air movement Cardiovascular: No edema, Normal S1 S2, No rubs, No murmurs, Irregular heart rate/rhythm Gastrointestinal: Normal bowel sounds, Soft and benign Musculoskeletal: No swelling - Studies Medications List Reviewed: Yes Assessment And Plan - Plan ESRD on HD MWF via AVF HD today renal dose meds HTN controlled Anemia cont YOLANDE Hyperkalemia HD today MBD resume binders cont sensipar Afib with RVR on metoprolol 100mg bid mgm as per cardiology CHF Cont HD
[2019-09-22] MEDS: SOTALOL HCL 80 MG TAB PO SCH ×2 (14:22→17:14)
[2019-09-22] MEDS: CA ACETATE 667 MG CAP PO SCH (17:00)
[2019-09-22] MEDS ORDERED: CINACALCET HCL 30 MG TAB PO SCH (17:00)
[2019-09-22] MEDS ORDERED: METOPROLOL TAR 50 MG TAB PO SCH (18:00)
--- NOTE | 2019-09-22 19:06 | RAD REPORT ---
EXAM DESCRIPTION: RAD -Hand Left 3 View - 09/22/2019 4:47 pm CLINICAL HISTORY: Left hand pain status post injury FINDINGS: Cortical regularity involves the proximal aspect of the first distal phalanx. This could i ndicate osteomyelitis or be posttraumatic change. If clinically indicated further evaluation with MRI may be helpful No dislocation
[2019-09-22] MEDS ORDERED: GUAIFENESIN/CODEINE 5ML UCUP PO PRN (23:06)
--- NOTE | 2019-09-23 02:33 | PN ---
Date of Progress Note: 09/22/2019 Mr. John was admitted on 09/21/2019 with atrial fibrillation. I have seen the patient today on in followup. Yesterday, he was placed on metoprolol 50 mg b.i.d. and on Eliquis 2.5 mg b.i.d . He is a dialysis patient. Echocardiogram showed an ejection fraction that is reduced approximatel y 40%. Mild global hypokinesis. This certainly could be secondary to renal disease or could be angelica use of atrial fibrillation. The patient continues to be in atrial fibrillation at a rate of about 10 0. I would switch him from metoprolol to Betapace 80 mg 1 p.o. b.i.d. Need to get at least 3 doses before he goes home. Hopefully, we will convert. If not, we will set him up for a cardioversion in about 3 weeks electrically. WIL/BENY Voice ID: [id number] Report ID: [id number]
[2019-09-23 05:29] LABS: Albumin 2.9 g/dL (3.4-5.0); Magnesium 2.3 mg/dL (1.8-2.4); Phosphorus 5.4 mg/dL (2.5-4.9); Potassium 5.3 mmol/L (3.5-5.1)
[2019-09-23] MEDS: SOTALOL HCL 80 MG TAB PO SCH (06:30)
[2019-09-23] MEDS: INSULIN -REGULAR HUMAN 50 UNIT/0.5 ML ML SQ SCH ×2 (07:30→11:30)
[2019-09-23] MEDS: CA ACETATE 667 MG CAP PO SCH ×2 (08:00→12:00)
[2019-09-23] MEDS: APIXABAN 2.5 MG TABLET PO SCH (08:39)
[2019-09-23] MEDS: [UNRECOGNIZED DRUG - OTHER] PO SCH (08:41)
[2019-09-23 09:44] VITALS: O2SAT 99
[2019-09-23] MEDS ORDERED: SOD POLYSTYREN SUL 15 GM/60 ML UCUP PO ONE (12:00)
[2019-09-23 12:21] VITALS: BP 136/80; TEMP 98.5; BMI 29.1
--- NOTE | 2019-09-23 12:53 | P.DS ---
Admission Date: 09/21/19 Discharge Date: 09/23/19 Primary Care Provider: Dr. Dunlap Disposition: ROUTINE DISCHARGE Discharge Condition: FAIR Reason for Admission: Chest Pain, Atrial Fib Consultations: Cardiology Nephrology - Problems (1) Atrial fibrillation with RVR Current Visit: Yes Status: Acute (2) ESRD (end stage renal disease) Current Visit: No Status: Chronic (3) Hypertension Current Visit: No Status: Chronic Qualifiers: Hypertension type: essential hypertension Qualified Code(s): I10 - Essential (primary) hypertension Brief History of Present Illness: 39-year-old man with a history of end-stage renal disease on hemodialysis, diabetes mellitus type 2 and hypertension was brought to the emergency department because was found to be in atrial fibrillation with RVR. Patient was initially hospitalized at [place] for new onset atrial fibrillation and was told he would need electric cardioversion. Patient signed out against medical advice. In the ED, patient was pain rapid atrial fibrillation/atrial flutter. He was given multiple doses of IV Lopressor and subsequently admitted for further management. y Hospital Course: Patient was admitted to telemetry and started on oral metoprolol. Patient was evaluated by cardiology metoprolol was replaced with Betapace and started on Eliquis for anticoagulation. Nephrology was also consulted, he underwent 2 sessions of hemodialysis There were plans for him to undergo electric cardioversion within 3 weeks if he does not spontaneously convert to sinus rhythm on the Betapace. Patient converted to sinus rhythm this morning. His echocardiogram reported global hypokinesis with an EF between 35-40%. He had no complain when I saw him today. His potassium level was mildly elevated to 5.3. Hemodialysis was recommended to be done today correct the hyperkalemia but patient refused. Dr. Mcmahon recommended low-potassium diet and Kayexalate to correct the hyperkalemia. Dr. Glover also confirmed Eliquis for atrial fibrillation anticoagulation and will arrange for follow up with him in the office as an outpatient. Patient has and nonhealing wound on his left thumb which he sustained from trauma to the thumb. He was concerning for an infection in the thumb. X-ray of the thumb reported cortical reaction of the distal phalanx suggestive of osteomyelitis versus posttraumatic changes. Patient was to go home today, already packed and ready to go. Case Discussed with Dr. Mcmahon. Patient will be discharged with oral Augmentin for 6 weeks. He has been informed to follow with his PCP to arrange for MRI of the left hand as soon as possible to confirm the osteomyelitis. Once osteomyelitis is confirmed, patient may need vancomycin with dialysis. Patient voiced understanding and agreed to comply. Vital Signs/Physical Exam: Temp Pulse Resp BP Pulse Ox 98.5 F 79 20 136/80 100 09/23/19 12:00 09/23/19 12:00 09/23/19 12:00 09/23/19 12:00 09/23/19 12:00 General: Alert, In no apparent distress, Oriented x3 HEENT: Mucous membr. moist/pink Neck: Supple, JVD not distended Respiratory: Clear to auscultation bilaterally, Normal air movement Cardiovascular: Normal pulses, Regular rate/rhythm, Normal S1 S2, No murmurs Capillary refill: <2 Seconds Gastrointestinal: Normal bowel sounds, Soft and benign, Non-distended, No tenderness Musculoskeletal: Other (Left thumb-deformed and with nonhealing wound.) Integumentary: No erythema Neurological: Normal strength at 5/5 x4 extr, Cranial nerves 3-12 intact Laboratory Data at Discharge: WBC 6.8 K/uL (4.3-10.9) 09/22/19 05:49 Hgb 8.7 g/dL (13.6-17.9) L 09/22/19 05:49 Hct 26.3 % (39.6-49.0) L 09/22/19 05:49 Plt Count 290 K/uL (152-406) 09/22/19 05:49 PT 14.1 SECONDS (9.5-12.5) H 09/22/19 05:49 INR 1.20 09/22/19 05:49 APTT 36.7 SECONDS (24.3-36.9) 09/22/19 05:49 Sodium 138 mmol/L (136-145) 09/23/19 04:28 Potassium 5.3 mmol/L (3.5-5.1) H 09/23/19 04:28 BUN 58 mg/dL (7-18) H 09/23/19 04:28 Creatinine 9.54 mg/dL (0.55-1.3) H* D 09/23/19 04:28 Glucose 164 mg/dL (74-106) H 09/23/19 04:28 Phosphorus 5.4 mg/dL (2.5-4.9) H 09/23/19 04:28 Magnesium 2.3 mg/dL (1.8-2.4) 09/23/19 04:28 Total Bilirubin 0.4 mg/dL (0.2-1.0) 09/22/19 05:49 AST 12 U/L (15-37) L 09/22/19 05:49 ALT 31 U/L (12-78) 09/22/19 05:49 Alkaline Phosphatase 99 U/L (45-117) 09/22/19 05:49 Troponin I < 0.02 ng/mL (0.0-0.045) 09/21/19 15:50 Imagings Data: Left hand X-ray: Cortical regularity involves the proximal aspect of the first distal phalanx. This could indicate osteomyelitis or be posttraumatic change. If clinically indicated further evaluation with MRI may be helpful No dislocation. Home Medications: Cinacalcet HCl [Sensipar*] 2 tab PO DAILY AT SUPPER 02/17/19 Patiromer Calcium Sorbitex [Veltassa] 1 appl PO DAILY 09/21/19 Amox/Clavulanate [Augmentin 500-125 mg Tab] 500 mg PO DAILY 42 Days #42 tab Apixaban [Eliquis *] 2.5 mg PO BID 30 Days #60 tablet 09/23/19 Calcium Acetate [Phoslo] 667 mg PO SEECOM 09/23/19 Epoetin [Retacrit] 4,000 unit IV EVERY HD vial 09/23/19 Sotalol HCl [Betapace*] 80 mg PO BID 6AM 6PM 30 Days #60 tab 09/23/19 New Medications: Amox/Clavulanate [Augmentin 500-125 mg Tab] 500 mg PO DAILY 42 Days #42 tab Apixaban [Eliquis *] 2.5 mg PO BID 30 Days #60 tablet Sotalol HCl [Betapace*] 80 mg PO BID 6AM 6PM 30 Days #60 tab Patient Discharge Instructions: You need an MRI of the Left hand to confirm osteomyelitis as soon as possible. You PCP need to help arrange for the MRI. Diet: Renal Activity: Ad jessica Followup: Rj Glover MD [ACTIVE - CAN ADMIT] - 1 Week Madeline Castillo MD [COURTESY - CAN ADMIT] - 2-3 Days Time spent managing pt's care (in minutes): 42
--- NOTE | 2019-09-24 02:32 | PN ---
Date of Progress Note: 09/23/2019 Chief Complaint: End-stage renal disease, congestive heart failure, atrial fibrillation. Patient wa s recently admitted to [facility] for atrial fibrillation with rapid ventricular response. The plan was fo r cardioversion versus ablation. Patient signed AMA today. He wants to be discharged to home. He h ad dialysis yesterday to control hyperkalemia. Patient is on medication to control hyperkalemia alma g with dialysis. He was instructed about low-potassium diet and to resume Veltassa. The patient rec eived Kayexalate 60 g today by mouth and potassium was 5.3 before he took medication. Review of Systems: Denies fever, chills. Physical Examination: Lungs: Clear to auscultation bilaterally. Heart: S1, S2. Abdomen: Soft, benign, nontender. Extremities: No edema. Laboratory Data: Sodium 138, potassium 5.3, chloride 104, CO2 of 27. BUN 58, creatinine 9.54, phosp horus 5.4, calcium 7.5. Albumin 2.9 and magnesium 2.3. Impression And Plan: 1.End-stage renal disease. Patient will continue dialysis and dialysis was scheduled for today agai n to control potassium, although patient requested to be discharged home and he refused dialysis. Waylon miles was scheduled to have Kayexalate 60 g today. He is to resume Veltassa and low-potassium diet. He will have the dialysis on Wednesday in outpatient unit. He received dialysis in the hospital. 2.Congestive heart failure. Volemia is in better control. 3.Metabolic bone disease, renal osteodystrophy. Continue binders and continue Sensipar. Monitor ca lcium level. 4.Congestive heart failure. Continue low-sodium diet. Monitor blood pressure. Adjust medication a s needed. UMBERTO/MODL Voice ID: [id number] Report ID: [id number]
--- NOTE | 2019-09-24 23:29 | PN ---
Date of Progress Note: 09/23/2019 Mr. John was admitted with atrial fibrillation, mild congestive heart failure, ejection fraction ab out 40% to 45%, did not convert with metoprolol. He was switched to Betapace 80 mg 1 p.o. b.i.d. He converted to sinus rhythm after the third dose. I would continue Betapace or continue Eliquis 2.5 m g b.i.d. He is a dialysis patient. He can go home today on Betapace 80 b.i.d. and Eliquis and we wi ll be happy to see him in the office in the next 2 weeks. WIL/BENY Voice ID: [id number] Report ID: [id number]
== END 2019-09-23 13:18 | disposition home or self-care (01) | DRG 308 ==
LOC: ER 03:01 → ERHOLD 05:37 → 3RD-ICU 10:45 → 4TH 17:15
PROVIDERS: ADMIT Hospitalist; ATTEND Internal Medicine
DX: I48.91 Unspecified atrial fibrillation (principal); N18.6 End stage renal disease; I13.2 Hypertensive heart and chronic kidney disease with heart failure and with stage 5 chronic kidney disease, or end stage renal disease; I50.22 Chronic systolic (congestive) heart failure; N25.81 Secondary hyperparathyroidism of renal origin; E11.22 Type 2 diabetes mellitus with diabetic chronic kidney disease; E87.5 Hyperkalemia; I48.92 Unspecified atrial flutter; D63.1 Anemia in chronic kidney disease; Z99.2 Dependence on renal dialysis; Z79.4 Long term (current) use of insulin
CPT/HCPCS: 36415; 71045; 80048; 80053; 80069; 80076; 80307; 82947; 83735; 83880; 84439; 84443; 84484; 85025; 85610; 85730; 90935; 93005; 93306; 96374; 96375; 99285; J1644

== ENCOUNTER 2020-11-14 | Emergency (ER) | payer OTHER ==
--- OUTSIDE RECORDS SUMMARY | 2020-11-14 21:25 | XMS REPORT | Continuity of Care Document ---
:1980 Author Organization [facility] t Address [address] [place] [address] [address]. [address] [place] [address] Care Team Providers Name Role Phone Tiarra Julian MD Attending Clinician Problems Condition Condition Condition Status Onset Resolution Last Treating Co mments Source Name Details Category Date Date Treatment Clinician Date Type 2 Type [address] [facility] diabetes diabetes [facility] - mellitus mellitus Memori a with with l diabetic diabetic Outpat i chronic chronic ent kidney kidney Clinics disease disease HTN, goal HTN, goal Problem Active [facility] below below [facility] - 130/80 130/80 [facility] ent [facility] End stage End stage Problem Active [facility] Tobacco Tobacco Problem Active [facility] use use [facility] - disorder disorder Memori a l [facility] ent [facility] Chronic Chronic Problem Active [facility] pain pain [facility] - syndrome syndrome Memori a [facility] ent [facility] Dependence Dependence Problem Active [facility] on renal on renal [facility] - dialysis dialysis Memori a l [facility] ent [facility] Atrial Atrial Problem Active [facility] fibrillati fibrillati Jennifer kes - on, on, Memoria unspecifie unspecifie l d type d type [facility] ent [facility] half-way half-way Problem Active [facility] (current) (current) Luke s - use of use of Memoria insulin insulin l [facility] Anemia of Anemia of Problem Active [facility] chronic chronic [facility] - disease disease [facility] ent Clinics Allergies, Adverse Reactions, Alerts This patient has no known allergies or adverse reactions. Medications Ordered Filled Start Stop Current Ordering Indication Dosage Frequency Signature Comments Components Source Medication Medication Date Date Medication? Clinician (SIG) Name Name Tresiba Kileyba Yes Donavan inject [address] FlexTouch FlexTouch Dunlap units [facility] ent Clinics Procedures This patient has no known procedures. Encounters Start End Encounter Admission Attending Care Care Encounter Source Date/Time Date/Time Type Type Clinicians Facility Department ID 2020-05-23 2020-05-23 [facility] [id number] [address] 11:13:00 11:13:00 [facility] Telnic [facility] Outpati ent Clinics 2020-05-16 2020-05-16 [facility] [id number] 11:17:00 11:17:00 [employer] [facility] Medicine Outpati ent Clinics 2020-05-09 2020-05-09 [facility] [id number] 15:11:00 15:11:00 [facility] Inkerwang [facility] Outpati ent Clinics 2020-05-07 2020-05-[address] [facility] [id number] 00:00:00 00:00:00 Brigid Mayen MULTISPEC [id number] IALTY [id number] [place] [id number] AND SOLIZ [facility] 2020-04-16 2020-04-16 [facility] [id number] 14:20:00 14:20:00 [facility] Outpat[facility] ent Clinics 2020-03-14 2020-03-14 [facility] [id number] 16:40:00 16:40:00 [facility] [place] [facility] Medicine Outpati ent Clinics 2020-03-07 2020-03-07 [facility] [id number] 15:05:00 15:05:00 [facility] Telnic [facility] Medicine Outpati ent Clinics 2020-03-06 2020-03-06 [facility] [id number] 08:00:00 08:00:00 [facility] Telnic [facility] Outpati ent Clinics 2019-11-21 2019-11-21 [facility] [id number] 09:05:00 09:05:[address] Luke s - Drive [facility] ent Clinics 2019-11-13 2019-11-13 Outpatient [facility] [place] [id number] 09:27:00 09:27:[address] Luke s - Drive [facility] ent Clinics 2019-11-09 2019-11-09 Outpatient Chetan [place] [id number] 14:45:00 14:45:00 [facility] Telnic [place] [address] [facility] ent [facility] 2019-08-11 2019-08-11 [id number] 00:00:00 00:00:00 Rainey A MULTISPEC [id number] IALTY [id number] [place] [id number] AND [facility] 2019-05-31 2019-05-31 Telephone [place] [id number] 00:00:00 00:00:00 Rainey A MULTISPEC [id number] IALTY [id number] [place] [id number] [facility] Results This patient has no known results.
--- NOTE | 2020-11-14 21:41 | ER ---
Nurse's Notes [facility] Name: Abhinav John Age: 40 yrs Sex: Male : 1980 Arrival Date: 11/14/2020 Time: 21:25 Bed Waiting Private MD: Donavan Dunlap Diagnosis: Presentation: 11/14 21:33 Chief complaint: Patient states: "For 3 or 4 days I've been getting boils or abscesses. aj1 I got one on my chest. I busted it open and I got a lot of pus out, but it spread really bad anyway" States that he hasn't had a fever but the spot on his chest has felt really hot to the touch. Coronavirus screen: At this time, the client does not indicate any symptoms associated with coronavirus-19. Ebola Screen: Patient denies travel to an Ebola-affected area in the 21 days before illness onset. Initial Sepsis Screen: Does the patient meet any 2 criteria? No. Patient's initial sepsis screen is negative. Does the patient have a suspected source of infection? Yes: Skin breakdown/wound. Risk Assessment: Do you want to hurt yourself or someone else? Patient reports no desire to harm self or others. Onset of symptoms was November 14, 2020. 21:33 Method Of Arrival: Ambulatory aj1 21:33 Acuity: KASEY 4 aj1 Triage Assessment: 21:36 General: Appears in no apparent distress. uncomfortable, Behavior is calm, cooperative, aj1 appropriate for age. Pain: Complains of pain in chest Pain does not radiate. Pain currently is 10 out of 10 on a pain scale. Neuro: Level of Consciousness is awake, alert, obeys commands. Cardiovascular: Patient's skin is warm and dry. Respiratory: Airway is patent Respiratory effort is even, unlabored, Respiratory pattern is regular, symmetrical. Historical: - Allergies: 21:36 No Known Allergies; aj1 - PMHx: 21:36 ESRD; HD M-W-F; Hypertension; Diabetes - NIDDM; aj1 - Immunization history:: Flu vaccine is up to date. - Social history:: Smoking status: Patient reports the use of cigarette tobacco products, smokes one pack cigarettes per day. Vital Signs: 21:33 BP 159 / 94; Pulse 101; Resp 20; Temp 98.1; Pulse Ox 97% on R/A; Weight 107.05 kg (R); aj1 Height 6 ft. 3 in. (190.50 cm) (R); Pain 10/10; 21:33 Body Mass Index 29.50 (107.05 kg, 190.50 cm) aj1 ED Course: 21:25 Patient arrived in ED. am2 21:25 Donavan Dunlap DO is Private Physician. am2 21:36 Triage completed. aj1 21:36 Arm band placed on Patient placed in waiting room, Patient notified of wait time. aj1 Administered Medications: No medications were administered Outcome: 21:39 Eloped from waiting room, before seeing physician Patient states that he is not going aj1 to wait to go back to a room, he would rather leave and come back later 21:40 Patient left the ED. aj1 Signatures: Ivet Yanez, RN RN aj1 Adrienne Monae am2
== END 2020-11-14 21:40 | disposition left against medical advice (07) ==
DX: Z02.9 Encounter for administrative examinations, unspecified (principal)
CPT/HCPCS: 99281

== ENCOUNTER 2020-11-16 06:26 | Inpatient (IN) | payer OTHER ==
--- OUTSIDE RECORDS SUMMARY | 2020-11-16 06:28 | XMS REPORT | Continuity of Care Document ---
:1980 Author Organization [facility] t Address [address] [place] [address] Care Team Providers Name Role Phone Eliel FERRIS, A Attending Clinician Problems Condition Condition Condition Status [...] below below [facility] - 130/80 130/80 Memoria [facility] End stage End stage Problem Active [facility] Tobacco Tobacco Problem Active [facility] use use [facility] - disorder disorder Memori a l [facility] Chronic Chronic Problem Active [facility] pain pain [facility] - syndrome syndrome Memori a [facility] ent [facility] Dependence Dependence Problem Active [facility] on renal on renal [facility] - dialysis dialysis Memori a [facility] ent [facility] Atrial Atrial Problem Active [facility] fibrillati fibrillati Jennifer kes - on, on, Memoria unspecifie unspecifie l d type d type [facility] ent [facility] 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 Medications Ordered Filled Start Stop Current Ordering Indication Dosage Frequency Signature Comments Components Source Medication Medication Date Date Medication? Clinician (SIG) Name Name Dilan Kong Yes Donavan inject [address] FlexTouch FlexTouch [place]lap units [facility] Outpati ent Clinics Procedures This patient has no known procedures. Encounters Start End Encounter Admission Attending Care Care Encounter Source Date/Time Date/Time Type Type Clinicians Facility Department ID 2020-05-23 2020-05-23 [facility] [id number] 11:13:00 11:13:00 [facility] Outpati ent Clinics 2020-05-16 2020-05-16 [facility] [id number] 11:17:00 11:17:00 [facility] Outpati ent Clinics 2020-05-09 2020-05-09 [facility] [id number] 15:11:00 15:11:00 [facility] Outpati ent [facility] 2020-05-07 2020-05-07 Abstract Eliel, [facility] [id number] 00:00:00 00:00:00 Brigid Mayen MULTISPEC [id number] IALTY [id number] [place] [id number] [facility] 2020-04-16 2020-04-16 [facility] [id number] 14:20:00 14:20:00 [facility] Outpati ent Clinics 2020-03-14 2020-03-14 [facility] [id number] 16:40:00 16:40:00 [facility] Medicine Outpati ent Clinics 2020-03-07 2020-03-07 [facility] [id number] 15:05:00 15:05:00 [facility] Medicine Outpati ent Clinics 2020-03-06 2020-03-06 [facility] [id number] 08:00:00 08:00:00 [facility] Outpati ent Clinics 2019-11-21 2019-11-21 [facility] [id number] 09:05:00 09:05:[address] [place] [address] - Drive [facility] ent Clinics 2019-11-13 2019-11-13 [facility] [place] [id number] 09:27:00 09:27:[address] [place] [address] - Drive [facility] ent Clinics 2019-11-09 2019-11-09 [facility] [place] [id number] 14:45:00 14:45:00 [facility] 2019-08-11 2019-08-11 [id number] 00:00:00 00:00:00 Brigid A MULTISPEC [id number] IALTY [id number] [place] [id number] [facility] 2019-05-31 2019-05-31 Telephone [place] [id number] 00:00:00 00:00:00 Brigid A MULTISPEC [id number] IALTY [id number] [place] [id number] [facility] Results This patient has no known results.
[2020-11-16] MEDS ORDERED: ONDANSETRON 4 MG/2 ML VIAL ONE ×2 (07:08→13:55)
[2020-11-16] MEDS ORDERED: MORPHINE 2 MG/ML SYR ONE (07:08)
[2020-11-16 07:25] LABS: Absolute Lymphocytes (CBC) 1.4 K/uL (0.7-4.9); Basophils % 0.8 % (0-1.3); Hematocrit 32.3 % (39.6-49.0); Lymphocytes % 9.8 % (15.3-44.8); MPV 7.2 fL (7.6-11.3); RBC Red Blood Cell Count 4.18 M/uL (4.33-5.43)
[2020-11-16 07:32] LABS: Protime INR 1.01
[2020-11-16 07:56] LABS: Albumin 2.9 g/dL (3.4-5.0); Alkaline Phosphatase 117 U/L (45-117); BUN Blood Urea Nitrogen 50 mg/dL (7-18); Bicarbonate 26 mmol/L (21-32); Bilirubin Direct < 0.1 mg/dL (0-0.2); Bilirubin Total 0.2 mg/dL (0.2-1.0); Potassium 3.4 mmol/L (3.5-5.1); Sodium Level 131 mmol/L (136-145)
[2020-11-16 07:57] LABS: ALT/SGPT < 6 U/L (12-78); AST/SGOT < 3 U/L (15-37)
[2020-11-16 07:58] LABS: Glucose Level 421 mg/dL (74-106)
[2020-11-16] MEDS ORDERED: VANCOMYCIN/NS 1 gm 1 GM/250 ML BAG IVPB ONE ×2 (08:00→13:00)
--- NOTE | 2020-11-16 08:27 | RAD REPORT ---
EXAM DESCRIPTION: CT - Thorax Wo Con - 11/16/2020 7:54 am CLINICAL HISTORY: left chest wall swelling, eval for abscess/depth COMPARISON: No comparisons TECHNIQUE: Axial 5 mm thick images of the chest were obtained without IV contrast. All CT scans are performed using dose optimization technique as appropriate and may include automated exposure control or mA/KV adjustment according to patient size. FINDINGS: No mass or infiltrate in the lung parenchyma. No pleural thickening or pleural effusion. N o pneumothorax. No abnormal mediastinal or hilar masses or lymphadenopathy seen. No gross aortic or pulmonary artery finding suspected. Assessment is limited in the absence of IV contrast. No cardiomegaly or pericardi al effusion. No abnormal axillary lymph nodes seen. There are reactive lymph nodes in the left axilla. Edematous/inflammatory stranding and skin thickening are seen in the mid and upper left chest. Patien t has a mild bilateral gynecomastia. The left pectoralis major muscle is thickened and edematous. In the superior aspect of the enlarged pectoralis muscle there is a 4.2 centimeter oval shaped area of m ore diminished attenuation. Size and margin assessment is difficult. This focal finding is isodense t o only slightly hypodense to muscle. The absence of contrast limits optimal assessment. A 3 centimete r sized area of soft tissue attenuation is present in the subcutaneous fatty tissues medial aspect of the left-side chest. This does not appear to have a drainable component. No air in the soft tissues. No foreign body identified. Pectoralis minor and deeper chest wall muscul ature does not appear to be involved. No acute bone finding. IMPRESSION: Approximately 4 centimeter low-density collection in the superior aspect of the enlarged and edematous left pectoralis major muscle. The absence of contrast limits full assessment of this focal finding. Intramuscular abscess is suspec corie. This could also be intramuscular hematoma. Edematous/inflammatory stranding in the subcutaneous fatty tissues of the mid and upper left chest wi thout a drainable fluid collection identified. No air or foreign body in the soft tissues the left chest.
--- NOTE | 2020-11-16 09:23 | EDPHYS ---
Physician Documentation [facility] Name: Abhinav John Age: 40 yrs Sex: Male : 1980 Arrival Date: 11/16/2020 Time: 06:28 Bed 4 Private MD: Donavan Dunlap ED Physician Will Brooks HPI: 11/16 07:10 This 40 yrs old Black Male presents to ER via Ambulatory with complaints of rn Abscess/swelling. 07:10 the patient presents with a swollen area of the chest. Description: The affected area rn is moderate sized, fluctuant, swollen, warm. Onset: The symptoms/episode began/occurred 4 day(s) ago. Possible cause(s): unknown. Associated signs and symptoms: Pertinent positives: swelling, Pertinent negatives: fever. Modifying factors: the symptoms are alleviated by nothing, the symptoms are aggravated by pressure, touching. Severity of symptoms: At their worst the symptoms were moderate, in the emergency department the symptoms are unchanged. The patient has experienced similar episodes in the past. Reports started 4 days ago with "small bump", has had multiple abscess so tried to squeeze out, didn't work, reports increased swelling and pain to left anterior chest wall. No fever. . Historical: - Allergies: 06:35 No Known Allergies; sg - PMHx: 06:35 Diabetes - NIDDM; ESRD; HD M-W-F; Hypertension; sg - Immunization history:: Adult Immunizations up to date. - Social history:: Smoking status: Patient denies any tobacco usage or history of. - Family history:: not pertinent. - Hospitalizations: : No recent hospitalization is reported. ROS: 07:10 Constitutional: Negative for fever, chills, and weight loss, Eyes: Negative for injury, rn pain, redness, and discharge, Neck: Negative for injury, pain, and swelling, Cardiovascular: Negative for palpitations, and edema, Respiratory: Negative for shortness of breath, cough, wheezing, and pleuritic chest pain, Abdomen/GI: Negative for abdominal pain, nausea, vomiting, diarrhea, and constipation, : Negative for injury, bleeding, discharge, and swelling, MS/Extremity: Negative for injury and deformity, Skin: + swelling and abscess of left chest wall Neuro: Negative for headache, weakness, numbness, tingling, and seizure. Exam: 07:10 Constitutional: This is a well developed, well nourished patient who is awake, alert, rn and in no acute distress. Head/Face: Normocephalic, atraumatic. Chest/axilla: + moderate left anterior chest wall swelling, with fluctuance closer to sternal region, extends approx 8 inches toward left axilla in oblong shape. + mild warmth, no erythema or drainage. Cardiovascular: Regular rate and rhythm. No pulse deficits. Respiratory: No increased work of breathing, no retractions or nasal flaring. Abdomen/GI: soft, non-tender Skin: Warm, dry MS/ Extremity: Pulses equal, no cyanosis. Neuro: Awake and alert, GCS 15 Vital Signs: 06:34 BP 145 / 77; Pulse 98; Resp 20; Temp 97.5; Pulse Ox 100% ; Weight 107.05 kg; Height 6 rr5 ft. 3 in. (190.50 cm); Pain 10/10; 07:15 BP 126 / 55; Pulse 79; Resp 17; Pulse Ox 100% on R/A; tw2 08:12 BP 110 / 84; Pulse 79; Resp 18; Pulse Ox 99% on R/A; tw2 09:12 BP 136 / 70; Pulse 79; Resp 17; Pulse Ox 98% on R/A; tw2 10:18 BP 146 / 77; Pulse 74; Resp 17; Pulse Ox 99% on R/A; tw2 06:34 Body Mass Index 29.50 (107.05 kg, 190.50 cm) rr5 Procedures: 09:21 Ultrasound: Type: Bedside subcutaneous ultrasound, performed by the emergency rn department physician, + subcutaneous abscess with cobblestoning and inflammatory changes, abscess approx 4.5 cm x 3 cm. . MDM: 07:04 Patient medically screened. rn 09:21 Differential diagnosis: abscess, cellulitis. Data reviewed: vital signs, nurses notes, internal medicine physician test result(s), radiologic studies, CT scan, ultrasound, and as a result, I will admit patient. 09:21 Counseling: I had a detailed discussion with the patient and/or guardian regarding: the rn historical points, exam findings, and any diagnostic results supporting the discharge/admit diagnosis, lab results, radiology results, the need for further work-up and treatment in the hospital. Response to treatment: the patient's symptoms have mildly improved after treatment, and as a result, I will admit patient. Admission orders: after a detailed discussion of the patient's condition and case, the admit orders are written by me. 09:49 ED course: Consulted with Dr. Flannery, pt is NPO, will eval patient. . 11/16 06:51 Order name: CBC with Diff; Complete Time: 08:31 [facility] 11/16 06:51 Order name: Basic Metabolic Panel; Complete Time: 08:31 [facility] 11/16 06:51 Order name: Protime (+inr); Complete Time: 08:31 [facility] 11/16 06:51 Order name: Ptt, Activated; Complete Time: 08:31 [facility] 11/16 06:51 Order name: LFT's; Complete Time: 08:31 [facility] 11/16 07:25 Order name: Blood Culture Adult (2) 11/16 07:09 Order name: CT Chest Wo Con; Complete Time: 08:31 11/16 07:25 Order name: Procalcitonin; Complete Time: 08:31 11/16 07:45 Order name: Glucose; Complete Time: 08:31 [facility] 11/16 07:56 Order name: Glucose, Ancillary Testing; Complete Time: 08:31 [facility] 11/16 06:51 Order name: Saline Lock; Complete Time: 07:00 [facility] 11/16 07:10 Order name: Glucose Level; Complete Time: 07:44 11/16 10:15 Order name: NPO; Complete Time: 11:03 rn Administered Medications: 07:00 Drug: Zofran (Ondansetron) 4 mg Route: IVP; Site: left hand; rr5 08:10 Follow up: Response: No adverse reaction tw2 07:02 Drug: morphine 2 mg {Note: rass 0.} Route: IVP; Site: left hand; rr5 08:00 Follow up: Response: No adverse reaction; Pain is decreased; RASS: Alert and Calm (0) tw2 08:05 Drug: vancoMYCIN 1 grams Route: IVPB; Infused Over: 2 hrs; Site: left forearm; tw2 10:10 Follow up: Response: No adverse reaction; IV Status: Completed infusion; IV Intake: tw2 250ml 09:52 Drug: Insulin Regular Human 10 units {Co-Signature: ph (Nidia Becerra RN).} Route: tw2 Sub-Q; Site: left upper arm; 11:03 Follow up: Response: No adverse reaction; Blood sugar is lowered tw2 Disposition: 11/16/20 09:22 Hospitalization ordered by Marco A Barba for Inpatient Admission. Preliminary diagnosis are Cutaneous abscess of chest wall, Cellulitis of chest wall, End stage renal disease. - Bed requested for Telemetry/MedSurg (Inpatient). - Status is Inpatient Admission. tw2 - Condition is Stable. - Problem is new. - Symptoms have improved. Signatures: Dispatcher [employer] EDMS Emmanuelle Hernandez RN RN dw Valdo Sosa, RN RN Will Brooks MD MD rn Wise, Tara, RN RN 2 Rafael Torres RN RN 5 Marcell Baig MD MD 7 Nidia Becerra RN ph Corrections: (The following items were deleted from the chart) 09:50 09:22 Hospitalization Ordered by Sadiq Torres MD for Inpatient Admission. Preliminary rn diagnosis is Cutaneous abscess of chest wall; Cellulitis of chest wall; End stage renal disease. Bed requested for Telemetry/MedSurg (Inpatient). Status is Inpatient Admission. Condition is Stable. Problem is new. Symptoms have improved. rn 11:01 09:50 11/16/2020 09:22 Hospitalization Ordered by Marco A Barba for Inpatient dw Admission. Preliminary diagnosis is Cutaneous abscess of chest wall; Cellulitis of chest wall; End stage renal disease. Bed requested for Telemetry/MedSurg (Inpatient). Status is Inpatient Admission. Condition is Stable. Problem is new. Symptoms have improved. rn 11:04 11:01 11/16/2020 09:22 Hospitalization Ordered by Marco A Barba for Inpatient tw2 Admission. Preliminary diagnosis is Cutaneous abscess of chest wall; Cellulitis of chest wall; End stage renal disease. Bed requested for Telemetry/MedSurg (Inpatient). Status is Inpatient Admission. Condition is Stable. Problem is new. Symptoms have improved. dw
--- NOTE | 2020-11-16 09:23 | ER ---
Nurse's Notes [facility] Name: Abhinav John Age: 40 yrs Sex: Male : 1980 Arrival Date: 11/16/2020 Time: 06:28 Bed 4 Private MD: Donavan Dunlap Diagnosis: Cutaneous abscess of chest wall;Cellulitis of chest wall;End stage renal disease Presentation: 11/16 06:34 Chief complaint: Patient states: I came last night to get this abscess looked at on my sg chest, its painful and really bothering me. No other symptoms reported for triage at this time. Coronavirus screen: Client denies travel out of the [place] in the last 14 days. At this time, the client does not indicate any symptoms associated with coronavirus-19. Ebola Screen: Patient negative for fever greater than or equal to 101.5 degrees Fahrenheit, and additional compatible Ebola Virus Disease symptoms Patient denies exposure to infectious person. Patient denies travel to an Ebola-affected area in the 21 days before illness onset. No symptoms or risks identified at this time. Initial Sepsis Screen: Does the patient meet any 2 criteria? HR > 90 bpm. Does the patient have a suspected source of infection? Yes: Skin breakdown/wound. Risk Assessment: Do you want to hurt yourself or someone else? Patient reports no desire to harm self or others. Onset of symptoms was November 16, 2020. Care prior to arrival: None. Transition of care: patient was not received from another setting of care. 06:34 Method Of Arrival: Ambulatory sg 06:34 Acuity: KASEY 3 sg Triage Assessment: 06:35 General: Appears in no apparent distress. uncomfortable, Behavior is calm, cooperative, rr5 appropriate for age. Pain: Complains of pain in anterior aspect of left upper chest Pain radiates to left axilla Pain currently is 10 out of 10 on a pain scale. Quality of pain is described as aching, Pain began gradually. EENT: No signs and/or symptoms were reported regarding the EENT system. Neuro: Level of Consciousness is awake, alert, obeys commands, Oriented to person, place, time. Cardiovascular: Capillary refill < 3 seconds Patient's skin is warm and dry. Dialysis shunt: in the right arm. Respiratory: Airway is patent Respiratory effort is even, unlabored, Respiratory pattern is regular, symmetrical. Derm: Skin is intact, Skin temperature is warm. Musculoskeletal: Capillary refill < 3 seconds, Swelling present in anterior aspect of left upper chest. Historical: - Allergies: 06:35 No Known Allergies; sg - PMHx: 06:35 Diabetes - NIDDM; ESRD; HD M-W-F; Hypertension; sg - Immunization history:: Adult Immunizations up to date. - Social history:: Smoking status: Patient denies any tobacco usage or history of. - Family history:: not pertinent. - Hospitalizations: : No recent hospitalization is reported. Screenin:42 Abuse screen: Denies threats or abuse. Denies injuries from another. Nutritional rr5 screening: No deficits noted. Tuberculosis screening: No symptoms or risk factors identified. Fall Risk None identified. Total Yoder Fall Scale indicates No Risk (0-24 pts). Assessment: 07:46 Reassessment: No changes from previously documented assessment. Patient and/or family tw2 updated on plan of care and expected duration. Pain level reassessed. Patient is alert, oriented x 3, equal unlabored respirations, skin warm/dry/pink. 08:12 Reassessment: No changes from previously documented assessment. Patient and/or family tw2 updated on plan of care and expected duration. Pain level reassessed. Patient is alert, oriented x 3, equal unlabored respirations, skin warm/dry/pink. 09:12 Reassessment: No changes from previously documented assessment. Patient and/or family tw2 updated on plan of care and expected duration. Pain level reassessed. Patient is alert, oriented x 3, equal unlabored respirations, skin warm/dry/pink. 10:18 Reassessment: No changes from previously documented assessment. Patient and/or family tw2 updated on plan of care and expected duration. Pain level reassessed. Patient is alert, oriented x 3, equal unlabored respirations, skin warm/dry/pink. 10:19 Reassessment: hospitalist at bedside at this time. tw2 11:04 Reassessment: No changes from previously documented assessment. Patient and/or family tw2 updated on plan of care and expected duration. Pain level reassessed. Patient is alert, oriented x 3, equal unlabored respirations, skin warm/dry/pink. Vital Signs: 06:34 BP 145 / 77; Pulse 98; Resp 20; Temp 97.5; Pulse Ox 100% ; Weight 107.05 kg; Height 6 rr5 ft. 3 in. (190.50 cm); Pain 10/10; 07:15 BP 126 / 55; Pulse 79; Resp 17; Pulse Ox 100% on R/A; tw2 08:12 BP 110 / 84; Pulse 79; Resp 18; Pulse Ox 99% on R/A; tw2 09:12 BP 136 / 70; Pulse 79; Resp 17; Pulse Ox 98% on R/A; tw2 10:18 BP 146 / 77; Pulse 74; Resp 17; Pulse Ox 99% on R/A; tw2 06:34 Body Mass Index 29.50 (107.05 kg, 190.50 cm) rr5 ED Course: 06:28 Patient arrived in ED. ag3 06:30 out of town, doctor is Private Physician. sg 06:30 Donavan Dunlap DO is Private Physician. sg 06:34 Arm band placed on. sg 06:35 Triage completed. sg 06:38 Marcell Baig MD is Attending Physician. [facility] 06:42 Patient has correct armband on for positive identification. Placed in gown. Bed in low rr5 position. Call light in reach. Pulse ox on. NIBP on. 07:00 Inserted saline lock: 20 gauge in left hand, using aseptic technique. Blood collected. rr5 07:04 Attending Physician role handed off by Marcell Baig MD rn 07:04 Will Brooks MD is Attending Physician. rn 07:11 Mary Poe RN is Primary Nurse. tw2 07:25 First set of blood cultures drawn from right hand IV. tw2 07:40 Second set of blood cultures drawn. Inserted saline lock: 20 gauge in left forearm, tw2 using aseptic technique. Blood collected. 07:46 Patient maintains SpO2 saturation greater than 95% on room air. tw2 07:47 Awaiting: abx from pharmacy. tw2 07:54 CT Chest Wo Con In Process Unspecified. EDMS 07:57 Notified ED physician of a critical lab result(s). glucose-421, creatinine-10.6. sv 09:22 Sadiq Torres MD is Hospitalizing Provider. rn 09:50 Marco A Barba is Hospitalizing Provider. rn 11:04 No provider procedures requiring assistance completed. Patient admitted, IV remains in tw2 place. Administered Medications: 07:00 Drug: Zofran (Ondansetron) 4 mg Route: IVP; Site: left hand; rr5 08:10 Follow up: Response: No adverse reaction tw2 07:02 Drug: morphine 2 mg {Note: rass 0.} Route: IVP; Site: left hand; rr5 08:00 Follow up: Response: No adverse reaction; Pain is decreased; RASS: Alert and Calm (0) tw2 08:05 Drug: vancoMYCIN 1 grams Route: IVPB; Infused Over: 2 hrs; Site: left forearm; tw2 10:10 Follow up: Response: No adverse reaction; IV Status: Completed infusion; IV Intake: tw2 250ml 09:52 Drug: Insulin Regular Human 10 units {Co-Signature: ph (Nidia Becerra RN).} Route: tw2 Sub-Q; Site: left upper arm; 11:03 Follow up: Response: No adverse reaction; Blood sugar is lowered tw2 Intake: 10:10 IV: 250ml; Total: 250ml. tw2 Outcome: 09:22 Decision to Hospitalize by Provider. rn 11:04 Admitted to OR accompanied by nurse, via wheelchair, Report called to DOMINIQUE Barbosa tw2 from OR 11:04 Condition: stable 11:04 Instructed on the need for admit. 11:04 Patient left the ED. tw2 Signatures: Dispatcher [employer] Chelsey Harman RN RN sv Gay, Steven, RN RN sg Nieto, Roman, MD MD rn Wise, Tara, RN RN tw2 Gaby Benavides 3 Rafael Torres RN RN rr5 Marcell Baig MD MD [facility] Nidia Becerra RN ph
[2020-11-16] MEDS ORDERED: INSULIN -REGULAR HUMAN 50 UNIT/0.5 ML ML ONE ×2 (10:04→11:58)
--- NOTE | 2020-11-16 10:39 | P.HP ---
Certification for Inpatient Patient admitted to: Inpatient With expected LOS: >2 Midnights Practitioner: I am a practitioner with admitting privileges, knowledge of patient current condition, hospital course, and medical plan of care. Services: Services provided to patient in accordance with Admission requirements found in Title 42 Section 412.3 of the Code of Federal Regulations Patient History Date of Service: 11/16/20 Reason for admission: Pain and swelling of the left anterior chest History of Present Illness: 40-year-old gentleman with a history of diabetes and end-stage renal disease on hemodialysis presented to the emergency department with a complaint of pain and swelling of the left anterior chest. Patient reports history of recurrent abscesses in the past. He denies any fever. He missed hemodialysis today. Leukocytosis noted in the ED. His blood sugar readings are also elevated. His pro calcitonin is elevated. He is afebrile and does not will meet criteria for sepsis. CT chest demonstrates fluid collection in the edematous left pectoralis muscle which could be an abscess. Noted patient has been on Eliquis. Hematoma is not excluded. General surgery was informed by the ED provider who plans I and D. Patient with risk for MRSA. He was given IV vancomycin in the ED. He is admitted for further management. Allergies No Known Allergies Allergy (Unverified 06/25/12 08:51) Home Medications: Cinacalcet HCl [Sensipar*] 2 tab PO DAILY AT SUPPER 02/17/19 Patiromer Calcium Sorbitex [Veltassa] 1 appl PO DAILY 09/21/19 Amox/Clavulanate [Augmentin 500-125 mg Tab] 500 mg PO DAILY 42 Days #42 tab 09/23/19 Apixaban [Eliquis *] 2.5 mg PO BID 30 Days #60 tablet 09/23/19 Calcium Acetate [Phoslo] 667 mg PO SEECOM 09/23/19 Epoetin [Retacrit] 4,000 unit IV EVERY HD vial 09/23/19 Sotalol HCl [Betapace*] 80 mg PO BID 6AM 6PM 30 Days #60 tab 09/23/19 - Past Medical/Surgical History Diabetic: Yes -: IDDM -: ESRD -: Atrial fibrillation -: I & D buttock -: Right AV fistula - Family History Father -: Hypertension, Diabetes - Social History Alcohol use: No CD- Drugs: No Caffeine use: No Review of Systems Other: Except as documented, all other systems reviewed and negative. Physical Examination - Physical Exam General: Alert, In no apparent distress, Oriented x3 HEENT: Normocephalic, Mucous membr. moist/pink, EOMI, Sclerae nonicteric Neck: Supple, JVD not distended Respiratory: Clear to auscultation bilaterally, Normal air movement Cardiovascular: No edema, Regular rate/rhythm, Normal S1 S2 Gastrointestinal: Normal bowel sounds, Soft and benign, Non-distended, No tenderness Musculoskeletal: Swelling, Tenderness, Other (Tenderness and swelling of the left anterior chest wall) Integumentary: No rashes, No erythema Neurological: Normal speech, Normal strength at 5/5 x4 extr, Cranial nerves 3-12 intact - Studies Laboratory Data (last 24 hrs) 11/16/20 07:40: Glucose 437 H* 11/16/20 07:00: PT 11.9, INR 1.01, APTT 27.3 11/16/20 07:00: Sodium 131 L, Potassium 3.4 L, BUN 50 H, Creatinine 10.60 H*, Glucose 421 H*, Total Bilirubin 0.2, AST < 3 L, ALT < 6 L, Alkaline Phosphatase 117 11/16/20 07:00: WBC 14.1 H, Hgb 10.5 L, Hct 32.3 L, Plt Count 259 Assessment and Plan - Problems (Diagnosis) (1) Chest wall abscess Current Visit: Yes Status: Acute (2) Atrial fibrillation with RVR Current Visit: No Status: Acute (3) Leukocytosis Current Visit: No Status: Acute Qualifiers: Leukocytosis type: unspecified Qualified Code(s): D72.829 - Elevated white blood cell count, unspecified (4) Anemia Current Visit: No Status: Chronic Qualifiers: Anemia type: due to chronic kidney disease Chronic kidney disease stage: on chronic dialysis Qualified Code(s): N18.6 - End stage renal disease; D63.1 - Anemia in chronic kidney disease; Z99.2 - Dependence on renal dialysis (5) Diabetes mellitus Current Visit: No Status: Chronic Qualifiers: Diabetes mellitus type: type 2 Diabetes mellitus manager intermediate insulin use: with fpc use Diabetes mellitus complication status: with kidney complications Diabetes mellitus complication detail: with chronic kidney disease Chronic kidney disease stage: on chronic dialysis Qualified Code(s): E11.22 - Type 2 diabetes mellitus with diabetic chronic kidney disease; N18.6 - End stage renal disease; Z79.4 - prison (current) use of insulin; Z99.2 - Dependence on renal dialysis (6) ESRD (end stage renal disease) Current Visit: No Status: Chronic - Plan Patient with a history of recurrent abscesses. Chest wall swelling and tenderness with fluid collection likely to be abscess. Hematoma not excluded. Patient is seen by general surgery who is planning I and D. Patient given IV vancomycin in the ED. Will continue IV vancomycin with hemodialysis. Also started on IV cefepime. Nephrology consult for hemodialysis. Follow blood cultures. Deep tissue wound culture after I and D. Validate and reconcile home medications. Hold all anticoagulation. Monitor CBC and electrolytes. - Advance Directives Does patient have a Living Will: Yes Does patient have a Durable POA for Healthcare: No
[2020-11-16] MEDS ORDERED: ACETAMINOPHEN 500 MG TAB PO PRN (10:43)
[2020-11-16] MEDS ORDERED: VANCOMYCIN/NS 1 gm 1 GM/250 ML BAG IVPB SCH (10:45)
[2020-11-16] MEDS ORDERED: CEFEPIME/SWI 1gm 10 ML IVP SCH ×2 (11:00→12:45)
[2020-11-16] MEDS ORDERED: NA CHLORIDE 0.9% 500 ML ONE (11:24)
[2020-11-16] MEDS: INSULIN -REGULAR HUMAN 50 UNIT/0.5 ML ML SQ SCH ×2 (11:30→16:30)
[2020-11-16] MEDS: CEFEPIME/SWI 1gm 10 ML IVP SCH (12:50)
--- NOTE | 2020-11-16 13:13 | P.CNS ---
Date of Consult: 11/16/20 PC: Abscesses see this 40-year-old male in regards to an abscess on his left anterior chest wall. HPC: Patient has had pain in discomfort over the last few days. Has increased within intensity and also the size of the area. PMH: Patient is diabetic, currently on dialysis, fistula and right forearm PSHx: Previous I and D's SOC: No known allergies SYS REVIEW: This is otherwise well O/E awake alert stable HEENT: Within normal limit Chest: Chest movement equal bilateral. On palpation of the left upper chest, there is a area that appears to fluctuant that the patient indicates is were he is having most of his pain and. This but has been marked preoperatively. ABD: Soft nontender LOCO: Intact DATA: Elevated white can IMPRESSION: Abscess of the anterior chest wall left side PLAN: Will take to the operating room for incision, drainage, sharp debridement of this abscess. The risks of this procedure were discussed with the patient. The possibility of bleeding, infection, injury to surrounding structures, and recurrence were outlined. The possible need for further surgeries and procedures was described. He understands and wants us to proceed.
[2020-11-16] MEDS ORDERED: propofoL 200 MG/20 ML VIAL IV ONE (13:44)
[2020-11-16] MEDS ORDERED: LIDOCAINE 2% MPF 5 ML VIAL ONE ×2 (13:44→13:54)
[2020-11-16] MEDS ORDERED: dexAMETHasone 10 MG/ML VIAL ONE (13:54)
[2020-11-16] MEDS ORDERED: FENTANYL CITR 100 MCG/2 ML ONE (13:56)
--- NOTE | 2020-11-16 13:59 | P.OP ---
Preoperative diagnosis: Abscess of the left anterior chest wall Postoperative diagnosis: Abscess of the left anterior chest wall Primary procedure: Incision, drainage, sharp debridement of abscess of left anterior chest wal Anesthesia: General Estimated blood loss: Less than 10 cc Specimen: Cultures a aerobic and anaerobic were taken Operative Technique: The patient brought the operating room placed supine on the table. After the induction of adequate general anesthesia the area was painted with a DuraPrep solution and draped in usual aseptic manner. Over the area mesh some bump fluctuance 0.25% Marcaine was injected. A skin incision was made. This brought down through the skin and subcutaneous tissue. Using a hemostat we encounter a large amount of white milky type fluid. Cultures both a aerobic and anaerobic of this were taken. A 2. Nylon was now placed into the wound and brought out inferiorly the keep the wound open and draining during the postoperative period. Attention was turned towards the area with the patient and indicated he was feeling the maximum pressure. We had marked this with a skin marker preoperatively. Once again it was inject with 0.25% Marcaine. A skin incision was made. We do not staining Any purulent material a hemostat was gently used to probe this area there was no area of fluctuance or come communication with the other abscess. At this point the wound was left open still just was applied At the end the procedure the patient was in a stable condition when sent to the recovery room. Needle sponge instrument count were correct. Complications: None Drain(s): Other (2. Nylon) Transferred to: Recovery Room Condition: Good
[2020-11-16] MEDS ORDERED: D50W 25 GM/50 ML VIAL IV PRN (14:14)
[2020-11-16] MEDS ORDERED: D50W 50 ML IV ONE (14:28)
[2020-11-16 16:01] VITALS: BMI 29.5
[2020-11-16] MEDS ORDERED: CEFEPIME 1 GM/VIAL IV SCH (21:00)
[2020-11-16] MEDS ORDERED: CALCIUM CARBONATE CHEW 500MG TAB PO PRN (22:30)
[2020-11-17] MEDS: INSULIN -REGULAR HUMAN 50 UNIT/0.5 ML ML SQ SCH ×3 (00:18→12:23)
[2020-11-17] MEDS: CEFEPIME/SWI 1gm 10 ML IVP SCH ×2 (00:18→08:19)
[2020-11-17] MEDS: CALCIUM CARBONATE CHEW 500MG TAB PO PRN ×2 (00:19→11:44)
[2020-11-17] MEDS: FENTANYL CITR 100 MCG/2 ML IV PRN ×2 (01:32→12:23)
[2020-11-17] MEDS ORDERED: INSULIN LISPRO 100 UNIT/1 ML SQ ONE (01:58)
[2020-11-17] MEDS ORDERED: INSULIN -REGULAR HUMAN 50 UNIT/0.5 ML ML SQ ONE ×2 (02:14→04:29)
[2020-11-17 04:06] VITALS: O2SAT 97
[2020-11-17 06:43] LABS: Absolute Lymphocytes (CBC) 1.1 K/uL (0.7-4.9); Basophils % 0.4 % (0-1.3); Hematocrit 30.4 % (39.6-49.0); Lymphocytes % 7.9 % (15.3-44.8); MPV 7.1 fL (7.6-11.3); RBC Red Blood Cell Count 3.89 M/uL (4.33-5.43)
[2020-11-17 06:51] LABS: Potassium 3.8 mmol/L (3.5-5.1)
[2020-11-17 06:52] LABS: Magnesium 2.3 mg/dL (1.8-2.4); Phosphorus 3.6 mg/dL (2.5-4.9)
[2020-11-17 09:08] LABS: Anisocytosis SLIGHT; Blood Morphology Comment NOTED (NOT SEEN); Platelet Estimate ADEQ
--- NOTE | 2020-11-17 11:08 | P.PN ---
Subjective Date of Service: 11/17/20 Chief Complaint: Pain and swelling of the left anterior chest Status post I and D of left anterior chest abscess. OR note reviewed. Copious amount of pus was drained during the procedure. Patient states he feels much better. He states pain is much better. He has been afebrile. Physical Examination - Vital Signs Temperature: 97.1 F Blood Pressure: 140/70 Pulse: 78 Respirations: 19 Pulse Ox (%): 98 - Physical Exam General: Alert, In no apparent distress Neck: JVD not distended Respiratory: Clear to auscultation bilaterally, Normal air movement Cardiovascular: No edema, Regular rate/rhythm, Normal S1 S2 Gastrointestinal: Soft and benign, Non-distended, No tenderness Musculoskeletal: No swelling, No tenderness Integumentary: Other (Dressed I&D wound on the left anterior chest. Dressing is partially soaked.) Neurological: Normal speech, Normal strength at 5/5 x4 extr Assessment And Plan - Current Problems (Diagnosis) (1) Chest wall abscess Current Visit: Yes Status: Acute (2) Leukocytosis Current Visit: No Status: Acute Qualifiers: Leukocytosis type: unspecified Qualified Code(s): D72.829 - Elevated white blood cell count, unspecified (3) Atrial fibrillation with RVR Current Visit: No Status: Acute (4) Anemia Current Visit: No Status: Chronic Qualifiers: Anemia type: due to chronic kidney disease Chronic kidney disease stage: on chronic dialysis Qualified Code(s): N18.6 - End stage renal disease; D63.1 - Anemia in chronic kidney disease; Z99.2 - Dependence on renal dialysis (5) Diabetes mellitus Current Visit: No Status: Chronic Qualifiers: Diabetes mellitus type: type 2 Diabetes mellitus penitentiary insulin use: with penitentiary use Diabetes mellitus complication status: with kidney complications Diabetes mellitus complication detail: with chronic kidney disease Chronic kidney disease stage: on chronic dialysis Qualified Code(s): E11.22 - Type 2 diabetes mellitus with diabetic chronic kidney disease; N18.6 - End stage renal disease; Z79.4 - FPC (current) use of insulin; Z99.2 - Dependence on renal dialysis (6) ESRD (end stage renal disease) Current Visit: No Status: Chronic - Plan Patient is seen by general surgery who is planning I and D. Continue IV vancomycin with hemodialysis and IV cefepime. Deep tissue wound culture: Coagulase positive Staph. I suspect MRSA. Follow for organism identification and sensitivity, Blood cultures no growth to date. Hemodialysis per nephrology. Continue home medications for afib Monitor CBC and electrolytes.
--- NOTE | 2020-11-17 13:05 | P.PN ---
Date of Service: 11/17/20 S: Patient feels much better today, states that the lump he is feeling prior to his admission is gone. Feels much better. O: Dressings clean A: Wound came back with the MRI stay. However the abscess has been drained. Patient is a dialysis patient, he we will be on tomorrow. At that time they can determine whether not they want to continue with IV antibiotics and he can have admitted surgery dialysis if needed. P: Patient is surgically stable and may be discharged. He is going to remove the small drain himself on Wednesday. He does not need to follow up with me unless he has any questions or problems he is more than welcome 2, however he has a lot of daily commitments with his dialysis.
--- NOTE | 2020-11-17 13:05 | P.DS ---
Admission Date: 11/16/20 Discharge Date: 11/17/20 Reason for Admission: Pain and swelling of the left anterior chest - Problems (1) Chest wall abscess Current Visit: Yes Status: Acute (2) Leukocytosis Current Visit: No Status: Acute Qualifiers: Leukocytosis type: unspecified Qualified Code(s): D72.829 - Elevated white blood cell count, unspecified (3) Atrial fibrillation with RVR Current Visit: No Status: Acute (4) Anemia Current Visit: No Status: Chronic Qualifiers: Anemia type: due to chronic kidney disease Chronic kidney disease stage: on chronic dialysis Qualified Code(s): N18.6 - End stage renal disease; D63.1 - Anemia in chronic kidney disease; Z99.2 - Dependence on renal dialysis (5) Diabetes mellitus Current Visit: No Status: Chronic Qualifiers: Diabetes mellitus type: type 2 Diabetes mellitus assistant terminal manager insulin use: with assistant terminal manager use Diabetes mellitus complication status: with kidney complications Diabetes mellitus complication detail: with chronic kidney disease Chronic kidney disease stage: on chronic dialysis Qualified Code(s): E11.22 - Type 2 diabetes mellitus with diabetic chronic kidney disease; N18.6 - End stage renal disease; Z79.4 - assisted (current) use of insulin; Z99.2 - Dependence on renal dialysis (6) ESRD (end stage renal disease) Current Visit: No Status: Chronic Brief History of Present Illness: 40-year-old gentleman with a history of diabetes and end-stage renal disease on hemodialysis presented to the emergency department with a complaint of pain and swelling of the left anterior chest. Patient reports history of recurrent abscesses in the past. He denies any fever. He missed hemodialysis today. Leukocytosis noted in the ED. His blood sugar readings are also elevated. His pro calcitonin is elevated. He is afebrile and does not will meet criteria for sepsis. CT chest demonstrates fluid collection in the edematous left pectoralis muscle which could be an abscess. Noted patient has been on Eliquis. Hematoma is not excluded. General surgery was informed by the ED provider who planned I and D. Patient with risk for MRSA. He was given IV vancomycin in the ED. He was admitted for further management. Hospital Course: Patient admitted to the medical floor. He was seen and evaluated by Dr. Flannery who performed I and D. according to the precedure not, copious amounts of pus was drained. A nylon was was left in the left lateral side of the chest swelling to continue draining. Deep tissue wound culture is growing coagulase positive Staph. MRSA is very much likely. Patient treated with IV vancomycin. He requested to go home and was adamant about it. Dr. Flannery saw patient and was ok to discharge patient. I called Dr. Joy-Nephrology and discussed case with him. He agrees to order IV vancomycin to be given during dialysis for [address] Flannery has instructed patient on how to remove the drain from the chest on 11/20/2020. Patient is discharged per his request. He stated his next dialysis day is tomorrow and I agrees to make it to dialysis so he can receive the antibiotic. Vital Signs/Physical Exam: Temp Pulse Resp BP Pulse Ox 97.1 F 78 18 140/70 95 11/17/20 11:10 11/17/20 11:10 11/17/20 12:23 11/17/20 11:10 11/17/20 12:23 General: Alert, In no apparent distress HEENT: Mucous membr. moist/pink Neck: JVD not distended Respiratory: Clear to auscultation bilaterally, Normal air movement Cardiovascular: No edema, Regular rate/rhythm, Normal S1 S2 Gastrointestinal: Soft and benign, Non-distended, No tenderness Musculoskeletal: Other (Dressed left anterior chest wall I&D wound.) Integumentary: No erythema Neurological: Normal speech, Normal strength at 5/5 x4 extr Laboratory Data at Discharge: WBC 14.6 K/uL (4.3-10.9) H 11/17/20 05:58 Hgb 9.8 g/dL (13.6-17.9) L 11/17/20 05:58 Hct 30.4 % (39.6-49.0) L 11/17/20 05:58 Plt Count 297 K/uL (152-406) 11/17/20 05:58 PT 11.9 SECONDS (9.5-12.5) 11/16/20 07:00 INR 1.01 11/16/20 07:00 APTT 27.3 SECONDS (24.3-36.9) 11/16/20 07:00 Sodium 132 mmol/L (136-145) L 11/17/20 05:58 Potassium 3.8 mmol/L (3.5-5.1) 11/17/20 05:58 BUN 51 mg/dL (7-18) H 11/17/20 05:58 Creatinine 8.99 mg/dL (0.55-1.3) H* D 11/17/20 05:58 Glucose 427 mg/dL (74-106) H* 11/17/20 05:58 Phosphorus 3.6 mg/dL (2.5-4.9) 11/17/20 05:58 Magnesium 2.3 mg/dL (1.8-2.4) 11/17/20 05:58 Total Bilirubin 0.2 mg/dL (0.2-1.0) 11/16/20 07:00 AST < 3 U/L (15-37) L 11/16/20 07:00 ALT < 6 U/L (12-78) L 11/16/20 07:00 Alkaline Phosphatase 117 U/L (45-117) 11/16/20 07:00 Home Medications: Cinacalcet HCl [Sensipar*] 2 tab PO DAILY AT SUPPER 02/17/19 Calcium Acetate [Phoslo] 667 mg PO SEECOM 09/23/19 Sotalol HCl [Betapace*] 80 mg PO DAILY 11/16/20 Vancomycin/0.9 % Sod Chloride [Vanco 1 Gram/250 ml-0.9% NaCl] 1 gm IV M,W,F #6 plast..bag 11/17/20 New Medications: Vancomycin/0.9 % Sod Chloride [Vanco 1 Gram/250 ml-0.9% NaCl] 1 gm IV M,W,F #6 plast..bag Patient Discharge Instructions: Dr. Flannery has instructed patient to cut suture and remove drain on Wednesday11/20/2020. Diet: Renal Activity: Ad jessica Followup: NONE,NONE [Primary Care Provider] - Lexi Jameson MD [ACTIVE - CAN ADMIT] - 1-2 Weeks Ashish Flannery MD [ACTIVE - CAN ADMIT] - 1-2 Weeks Time spent managing pt's care (in minutes): 40
[2020-11-17 14:08] VITALS: BP 161/77; TEMP 97.7
--- NOTE | 2020-11-17 21:12 | PN ---
Date of Progress Note: 11/17/2020 Chief Complaint: End-stage renal disease, chest wall abscess. The patient underwent incision and dr patino. He was started on vancomycin and cefepime. Cultures were obtained and pending. The patient was found to have leukocytosis. He did not have fever. He remained hemodynamically stable. He und erwent dialysis yesterday for metabolic clearance and to control volemia. Electrolytes were stable. Metabolic acidosis was well controlled. The patient was found to have uncontrolled diabetes. The p vamsi has diabetes mellitus, insulin dependent. During this admission, he was found to have hypergl ycemia and was treated with insulin. Review of Systems: Denies fever, chills. Physical Examination: Lungs: Diminished breath sounds at bases. Heart: S1, S2. Abdomen: Soft, benign. Extremities: No edema. Impression And Plan: 1.End-stage renal disease. Continue dialysis 3 times per week. Next dialysis tomorrow. 2.Anemia in chronic kidney disease. Continue erythropoiesis-stimulating agents. 3.Renal osteodystrophy. Continue renal diet and binders. 4.Abscess formation, status post incision and drainage. Follow up with Surgical team. Continue ant ibiotics. EB/MODL Voice ID: [id number] Report ID: [id number]
--- NOTE | 2020-11-17 21:36 | CON ---
Date of Consultation: 11/16/2020 Chief Complaint: End-stage renal disease, on dialysis. History Of Present Illness: The patient is a 40-year-old man with history of diabetic kidney disease , end-stage renal disease, on hemodialysis. He presented to emergency room because of swelling of th e left anterior chest. He was found to have recurrent abscess and surgical procedure was done to sirena chritsopher abscess. After procedure, the patient wants to have dialysis and dialysis was scheduled with u ltrafiltration to control fluid overload. The patient did not have fever. CT scan demonstrated flui d collection in the left pectoralis muscle, which was done after the patient has been treated with El iquis and possibility of hematoma was not ruled out. The patient was started on IV vancomycin in the emergency room because of high risk of MRSA and was scheduled to have incision and drainage. Past Medical History: Insulin-dependent diabetes, end-stage renal disease, hemodialysis, I and D for buttock abscess, right upper extremity AV fistula, anemia, CKD, renal osteodystrophy. Family History: Hypertension, diabetes. Social History: Denies tobacco, alcohol, or illicit drugs. Review of Systems: General: Denies fever or chills. Eyes: Denies vision changes. Ears, Nose, Mouth, and Throat: Denies sore throat or earache. Respiratory: Denies PND or orthopnea. Cardiovascular: Denies chest pain, palpitation, or syncope. GI: Denies nausea or vomiting. : Denies dysuria or hematuria. Musculoskeletal: He has abscess in the chest area, swelling, and erythema. Denies bleeding. All other systems reviewed and all are negative. Physical Examination: General: The patient is awake, alert, oriented. Eyes: Anicteric sclerae. EOMI. Ears, Nose, Mouth, and Throat: Oral mucosa moist. No pallor. Respiratory: Clear to auscultation bilaterally. Normal respiratory effort. Cardiovascular: S1, S2. No pericardial friction rub. Extremities: No edema. GI: Normal bowel sounds. No rebound. No guarding. Neurological: The patient is moving extremities. No tremor. Laboratory Work: Sodium 131, potassium 3.4, BUN 50, creatinine 10.6, glucose 421, bilirubin 0.2. WB C 14.1, platelet count is 259, hemoglobin 10.5, hematocrit 32.3. Impression And Plan: 1.End-stage renal disease. The patient will have dialysis to prevent fluid overload, to provide met abolic clearance. Ultrafiltration will be done to control volemia. 2.Chest wall abscess, status post incision and drainage. Continue antibiotics. Monitor vancomycin dose and adjust dose accordingly. 3.Leukocytosis, acute secondary to abscess formation. 4.Anemia. Hemoglobin level in acceptable range. The patient will resume YOLANDE when hemoglobin is bel ow 10. 5.Renal osteodystrophy. Continue renal diet and binders. 6.The patient will continue broad spectrum antibiotics with vancomycin coverage for methicillin-resi stant Staphylococcus aureus. EB/MODL Voice ID: [id number] Report ID: [id number]
[2020-11-20 18:54] LABS: HBsAG Nonreactive (Nonreactive)
== END 2020-11-17 14:35 | disposition home or self-care (01) | DRG 579 ==
LOC: ER 06:26 → ERHOLD 10:29 → 2ND 11:27
PROVIDERS: ADMIT Internal Medicine; ATTEND Internal Medicine
PROC: 5A1D70Z Performance of Urinary Filtration, Intermittent, Less than 6 Hours Per Day (ICD-10-PCS; 2020-11-16)
PROC: 0J960ZZ Drainage of Chest Subcutaneous Tissue and Fascia, Open Approach (ICD-10-PCS; principal; 2020-11-16 14:00)
DX: L02.213 Cutaneous abscess of chest wall (principal); N18.6 End stage renal disease; I12.0 Hypertensive chronic kidney disease with stage 5 chronic kidney disease or end stage renal disease; E87.2 Acidosis; E11.22 Type 2 diabetes mellitus with diabetic chronic kidney disease; E11.65 Type 2 diabetes mellitus with hyperglycemia; D63.1 Anemia in chronic kidney disease; I48.91 Unspecified atrial fibrillation; N25.0 Renal osteodystrophy; D72.829 Elevated white blood cell count, unspecified; B95.62 Methicillin resistant Staphylococcus aureus infection as the cause of diseases classified elsewhere; Z99.2 Dependence on renal dialysis; Z79.01 Long term (current) use of anticoagulants; Z79.899 Other long term (current) drug therapy; Z79.4 Long term (current) use of insulin
CPT/HCPCS: 36415; 71250; 80048; 80076; 82947; 83735; 84100; 84145; 85025; 85610; 85730; 86704; 86706; 86803; 87040; 87070; 87075; 87077; 87186; 87205; 87340; 90935; 94760; 96365; 96366; 96372; 96375; 99281; 99285; J0692; J1100; J2270; J2405; J2704; J3010; J3370; J7040

== ENCOUNTER 2020-11-17 18:53 | Emergency (ER) | payer OTHER ==
--- OUTSIDE RECORDS SUMMARY | 2020-11-17 18:55 | XMS REPORT | Continuity of Care Document ---
:1980 Author Organization [facility] t Address [address] [place] [address] Care Team Providers Name Role Phone Tiarra [...] below below [facility] - 130/80 130/80 [facility] End stage End stage Problem Active [facility] Tobacco Tobacco Problem Active [facility] use use [facility] - disorder disorder [facility] Chronic Chronic Problem Active [facility] pain pain [facility] - syndrome syndrome [facility] Dependence Dependence Problem Active [facility] on renal on renal [facility] - dialysis dialysis [facility] a [facility] ent [facility] Atrial Atrial Problem Active [facility] fibrillati fibrillati Jennifer kes - on, on, Memoria unspecifie unspecifie l d type d type [facility] intermodal customer service intermodal customer service Problem Active [facility] (current) (current) Luke s - use of use of Memoria insulin insulin l [facility] ent [facility] Anemia of Anemia of Problem Active [facility] chronic chronic [facility] - disease disease [facility] Clinics Allergies, Adverse Reactions, Alerts This patient has no known allergies or adverse reactions. Medications Ordered Filled Start Stop Current Ordering Indication Dosage Frequency Signature Comments Components Source Medication Medication Date Date Medication? Clinician (SIG) Name Name Tresiba Kileyba Yes Donavan inject [address] FlexTouch FlexTouch [place] units [facility] Outpati ent Clinics Procedures This patient has no known procedures. Encounters Start End Encounter Admission Attending Care Care Encounter Source Date/Time Date/Time Type Type Clinicians Facility Department ID 2020-05-23 2020-05-23 [facility] [id number] [facility] 11:13:00 11:13:00 [facility] Medicine Outpati ent Clinics 2020-05-16 2020-05-16 [facility] [id number] [address] 11:17:00 11:17:00 [facility] Rii[address] [facility] Medicine Outpati ent Clinics 2020-05-09 2020-05-09 [facility] [id number] 15:11:00 15:11:00 [facility] Riiid [facility] Outpati ent Clinics 2020-05-07 2020-05-07 Abstract Eliel, [facility] [id number] 00:00:00 00:00:00 Brigid Mayen MULTISPEC [id number] IAL[place] [id number] [place] [id number] [facility] 2020-04-16 2020-04-16 [facility] [id number] 14:20:00 14:20:00 [facility] Outpati ent Clinics 2020-03-14 2020-03-14 [facility] [id number] 16[facility]40:00 16:40:00 [facility] [facility] Medicine Outpati ent Clinics 2020-03-07 2020-03-07 [facility] [id number] 15:05:00 15:05:00 [facility] Medicine Outpati ent Clinics 2020-03-06 2020-03-06 [facility] [id number] 08:00:00 08:00:00 [facility] Medicine Outpati ent Clinics 2019-11-21 2019-11-21 [facility] [id number] 09:05:00 09:05:[address] [place] [address] [facility] Clin[facility] 2019-11-13 2019-11-13 Outpatient Chetan Valdez [id number] 09:27:00 09:27:[address] [place] - Drive [facility] 2019-11-09 2019-11-09 Outpatient Chetan Valdez [id number] 14:45:00 14:45:00 [facility] [place] [address] [facility] 2019-08-11 2019-08-[id number] 00:00:00 00:00:00 Brigid A MULTISPEC [id number] IALTY [id number] [place] [id number] [facility] [place] [facility] 2019-05-31 2019-05-31 Telephone [place] [id number] 00:00:00 00:00:00 Brigid A MULTISPEC [id number] IALTY [id number] [place] [id number] [facility] [facility] Results This patient has no known results.
[2020-11-17] MEDS ORDERED: LIDOCAINE 1% W/EPI 1:100,000 MDV 50 ML VIAL ONE (19:46)
--- NOTE | 2020-11-17 20:19 | ER ---
Nurse's Notes [facility] Name: Abhinav John Age: 40 yrs Sex: Male : 1980 Arrival Date: 11/17/2020 Time: 18:55 Bed 20 Private MD: Diagnosis: Post Operative Wound Bleeding Presentation: 11/17 19:16 Chief complaint: Patient states: had and abscess on left side of chest drained by Dr. olu Flannery yesterday, today it started bleeding a lot. Coronavirus screen: At this time, the client does not indicate any symptoms associated with coronavirus-19. Ebola Screen: Patient negative for fever greater than or equal to 101.5 degrees Fahrenheit, and additional compatible Ebola Virus Disease symptoms Patient denies exposure to infectious person. Patient denies travel to an Ebola-affected area in the 21 days before illness onset. No symptoms or risks identified at this time. Initial Sepsis Screen: Does the patient meet any 2 criteria? No. Patient's initial sepsis screen is negative. Does the patient have a suspected source of infection? No. Patient's initial sepsis screen is negative. Risk Assessment: Do you want to hurt yourself or someone else? Patient reports no desire to harm self or others. Onset of symptoms was November 17, 2020. 19:16 Method Of Arrival: Ambulatory iw 19:16 Acuity: KASEY 3 iw Historical: - Allergies: 19:18 No Known Allergies; iw - PMHx: 19:18 Diabetes - NIDDM; ESRD; HD M-W-F; Hypertension; iw - Immunization history:: Adult Immunizations up to date. - Social history:: Smoking status: unknown. Screenin:25 Abuse screen: Denies threats or abuse. Denies injuries from another. Nutritional rr5 screening: No deficits noted. Tuberculosis screening: No symptoms or risk factors identified. Fall Risk None identified. Total Yoder Fall Scale indicates No Risk (0-24 pts). Assessment: 19:23 General: Appears in no apparent distress. uncomfortable, Behavior is calm, cooperative, rr5 appropriate for age. Pain: Complains of pain in anterior aspect of left upper chest Pain Quality of pain is described as aching, Pain began gradually, Is intermittent. Neuro: Level of Consciousness is awake, alert, obeys commands, Oriented to person, place, time, situation. Cardiovascular: Capillary refill < 3 seconds Patient's skin is warm and dry. Dialysis shunt: in the right arm. Respiratory: Airway is patent Respiratory effort is even, unlabored, Respiratory pattern is regular, symmetrical. GI: No signs and/or symptoms were reported involving the gastrointestinal system. : No signs and/or symptoms were reported regarding the genitourinary system. EENT: No signs and/or symptoms were reported regarding the EENT system. Derm: Skin is intact, is healthy with good turgor, Skin temperature is warm Wound noted anterior aspect of left upper chest Wound is post Iand D bleeding noted. Musculoskeletal: Circulation, motion, and sensation intact. Capillary refill < 3 seconds. 20:35 Reassessment: Patient appears in no apparent distress at this time. Patient is alert, rr5 oriented x 3, equal unlabored respirations, skin warm/dry/pink. no bleeding noted. discharge instruction given and explained without complaints made Patient states feeling better. Patient states symptoms have improved. Vital Signs: 19:18 BP 118 / 77; Pulse 78; Resp 19; Temp 98.8; Pulse Ox 99% ; rr5 20:35 BP 132 / 70; Pulse 75; Resp 14; Pulse Ox 99% ; rr5 ED Course: 18:55 Patient arrived in ED. rg4 19:17 Marcell Baig MD is Attending Physician. [facility] 19:17 Triage completed. iw 19:18 Arm band placed on. iw 19:22 Rafael Torres, DOMINIQUE is Primary Nurse. rr5 19:25 Patient has correct armband on for positive identification. Bed in low position. Call rr5 light in reach. Pulse ox on. NIBP on. 19:45 Assist provider with laceration repair on anterior aspect of left upper chest that was rr5 2.5 cm. or less using connor. Set up tray. Performed by Marcell Baig MD Dressed with 4X4s, Neosporin, Patient tolerated well. 19:45 Patient did not have IV access during this emergency room visit. rr5 20:17 Ashish Flannery MD is Referral Physician. 7 Administered Medications: 19:45 Drug: Lidocaine-Epinephrine -1%: (1:100,000) 5 ml Volume: 20 ml; Route: Infiltration; rr5 20:35 Follow up: Response: No adverse reaction; given by dr. baig rr5 Intake: Outcome: 20:18 Discharge ordered by . 7 20:35 Patient left the ED. rr5 20:35 Discharged to home ambulatory. rr5 20:35 Condition: stable 20:35 Discharge instructions given to patient, Instructed on discharge instructions, follow up and referral plans. Demonstrated understanding of instructions, follow-up care. 20:38 Patient left the ED. rr5 Signatures: Beverley Huynh RN RN iw Kelli Bernard 4 Rafael Torres RN RN rr5 Marcell Baig MD MD 7
--- NOTE | 2020-11-17 20:19 | EDPHYS ---
Physician Documentation [facility] Name: Abhinav John Age: 40 yrs Sex: Male : 1980 Arrival Date: 11/17/2020 Time: 18:55 Bed 20 Private MD: ED Physician Marcell Baig HPI: 11/17 19:34 This 40 yrs old Black Male presents to ER via Ambulatory with complaints of Post mh7 Surgical Bleeding. 19:34 Patient presents to ED for recheck of: abscess. The affected area is on the anterior mh7 aspect of left upper chest. 19:35 Previous treatment: The patient was initially treated 2 day(s) ago, the care was 7 rendered at [facility], Treatment type: The patient's original treatment included an I\T\D. Progress: The patient reports increased Bleeding from incision site. Historical: - Allergies: 19:18 No Known Allergies; iw - PMHx: 19:18 Diabetes - NIDDM; ESRD; HD M-W-F; Hypertension; iw - Immunization history:: Adult Immunizations up to date. - Social history:: Smoking status: unknown. ROS: 19:35 Constitutional: Negative for fever, chills, and weight loss, Eyes: Negative for injury, mh7 pain, redness, and discharge, ENT: Negative for injury, pain, and discharge, Neck: Negative for injury, pain, and swelling, Cardiovascular: Negative for chest pain, palpitations, and edema, Respiratory: Negative for shortness of breath, cough, wheezing, and pleuritic chest pain, Abdomen/GI: Negative for abdominal pain, nausea, vomiting, diarrhea, and constipation, Back: Negative for injury and pain, : Negative for injury, bleeding, discharge, and swelling, MS/Extremity: Negative for injury and deformity, Neuro: Negative for headache, weakness, numbness, tingling, and seizure, Psych: Negative for depression, anxiety, suicide ideation, homicidal ideation, and hallucinations, Allergy/Immunology: Negative for hives, rash, and allergies, Endocrine: Negative for neck swelling, polydipsia, polyuria, polyphagia, and marked weight changes, Hematologic/Lymphatic: Negative for swollen nodes, abnormal bleeding, and unusual bruising. Exam: 19:35 Constitutional: This is a well developed, well nourished patient who is awake, alert, mh7 and in no acute distress. Head/Face: Normocephalic, atraumatic. Eyes: Pupils equal round and reactive to light, extra-ocular motions intact. Lids and lashes normal. Conjunctiva and sclera are non-icteric and not injected. Cornea within normal limits. Periorbital areas with no swelling, redness, or edema. Neck: Trachea midline, no thyromegaly or masses palpated, and no cervical lymphadenopathy. Supple, full range of motion without nuchal rigidity, or vertebral point tenderness. No Meningismus. Cardiovascular: Regular rate and rhythm with a normal S1 and S2. No gallops, murmurs, or rubs. Normal PMI, no JVD. No pulse deficits. Respiratory: Lungs have equal breath sounds bilaterally, clear to auscultation and percussion. No rales, rhonchi or wheezes noted. No increased work of breathing, no retractions or nasal flaring. Abdomen/GI: Soft, non-tender, with normal bowel sounds. No distension or tympany. No guarding or rebound. No evidence of tenderness throughout. Back: No spinal tenderness. No costovertebral tenderness. Full range of motion. MS/ Extremity: Pulses equal, no cyanosis. Neurovascular intact. Full, normal range of motion. Neuro: Awake and alert, GCS 15, oriented to person, place, time, and situation. Cranial nerves II-XII grossly intact. Motor strength 5/5 in all extremities. Sensory grossly intact. Cerebellar exam normal. Normal gait. Psych: Awake, alert, with orientation to person, place and time. Behavior, mood, and affect are within normal limits. 19:50 Chest/axilla: Inspection: Left upper chest wall medial I\T\D site with drainage loop is mh7 intact without erythema, swelling, induration, discharge, or tenderness. Lateral incision site active bleeding with bright red blood. , Palpation: is normal, Axilla: are normal, Lymph nodes: lymphadenopathy is not appreciated. 19:50 Skin: Wound recheck: Abscess: the wound has improved, medial site left upper chest wall, Lateral left upper chest wall incision site with active bleeding. Vital Signs: 19:18 BP 118 / 77; Pulse 78; Resp 19; Temp 98.8; Pulse Ox 99% ; rr5 20:35 BP 132 / 70; Pulse 75; Resp 14; Pulse Ox 99% ; rr5 Procedures: 19:50 Performed Closure of left upper chest wall lateral I\T\D incision site. Area cleaned and mh7 then anesthetized with Lidocaine 1% with Epinephrine 4 ml. total of 5 staple placed to site for wound closure. No active bleeding after closure. Patient tolerated well. Dressing placed to site.. MDM: 19:50 Differential diagnosis: cellulitis, Post surgical bleeding. [facility] 19:50 Data reviewed: vital signs, nurses notes, old medical records. Data interpreted: Pulse mh7 oximetry: on room air is 99 %. Interpretation: normal. Counseling: I had a detailed discussion with the patient and/or guardian regarding: the historical points, exam findings, and any diagnostic results supporting the discharge/admit diagnosis, the presence of at least one elevated blood pressure reading (>120/80) during this emergency department visit, the need for outpatient follow up, a general surgeon, to return to the emergency department if symptoms worsen or persist or if there are any questions or concerns that arise at home. Physician consultation: Ashish Flannery MD was contacted at 19:25, regarding patient's condition, and will see patient in office, Recommended placement of rodrigo to close wound in the ED.. tomorrow. 20:16 Response to treatment: the patient's symptoms have resolved after treatment, the [facility] patient's blood pressure is in an acceptable range, mental status has returned to baseline, the patient no longer shows bradycardia, the patient is not short of breath, the patient is not tachycardic, the patient's pain is gone, the patient's temperature has normalized. 20:18 Patient medically screened. [facility] 11/17 20:35 Order name: Dressing - Wound; Complete Time: 20:35 rr5 11/17 20:35 Order name: Gloves, Sterile; Complete Time: 20:35 rr5 11/17 20:35 Order name: Setup Suture Tray; Complete Time: 20:35 rr5 Administered Medications: 19:45 Drug: Lidocaine-Epinephrine -1%: (1:100,000) 5 ml Volume: 20 ml; Route: Infiltration; rr5 20:35 Follow up: Response: No adverse reaction; given by dr. baig rr5 Disposition: 11/17/20 20:18 Discharged to Home. Impression: Post Operative Wound Bleeding. - Condition is Stable. - Discharge Instructions: Wound Check, Wound Care, Stitches, Rodrigo, or Adhesive Wound Closure, [id number]. - Medication Reconciliation Form, Thank You Letter, Antibiotic Education, Prescription Opioid Use form. - Follow up: Ashish Flannery MD; When: Tomorrow; Reason: Wound Recheck, Worsening of condition, Recheck today's complaints, Continuance of care, Re-evaluation by your physician. - Problem is an ongoing problem. - Symptoms are resolved. Signatures: Beverley Huynh RN RN iw Rafael Torres RN RN rr5 Marcell Baig MD MD mh7 Corrections: (The following items were deleted from the chart) 20:34 20:18 11/17/2020 20:18 Discharged to Home. Impression: Post Operative Wound Bleeding. rr5 Condition is Stable. Forms are Medication Reconciliation Form, Thank You Letter, Antibiotic Education, Prescription Opioid Use. Follow up: Ashish Flannery; When: Tomorrow; Reason: Wound Recheck, Worsening of condition, Recheck today's complaints, Continuance of care, Re-evaluation by your physician. Problem is an ongoing problem. Symptoms are resolved. 7 20:35 20:34 11/17/2020 20:18 Discharged to Home. Impression: Post Operative Wound Bleeding. rr5 Condition is Stable. Discharge Instructions: Wound Check, Wound Care, Stitches, Rodrigo, or Adhesive Wound Closure, [id number]. Forms are Medication Reconciliation Form, Thank You Letter, Antibiotic Education, Prescription Opioid Use. Follow up: Ashish Flannery; When: Tomorrow; Reason: Wound Recheck, Worsening of condition, Recheck today's complaints, Continuance of care, Re-evaluation by your physician. Problem is an ongoing problem. Symptoms are resolved. rr5 20:38 20:35 11/17/2020 20:18 Discharged to Home. Impression: Post Operative Wound Bleeding. rr5 Condition is Stable. Discharge Instructions: Wound Check, Wound Care, Stitches, Rodrigo, or Adhesive Wound Closure, [id number]. Forms are Medication Reconciliation Form, Thank You Letter, Antibiotic Education, Prescription Opioid Use. Follow up: Ashish Flannery; When: Tomorrow; Reason: Wound Recheck, Worsening of condition, Recheck today's complaints, Continuance of care, Re-evaluation by your physician. Problem is an ongoing problem. Symptoms are resolved. rr5
[2020-11-19 15:49] VITALS: BP 118/77; TEMP 98.8; O2SAT 99
== END 2020-11-17 20:38 | disposition home or self-care (01) ==
LOC: ER 18:53
PROC: 0HQ5XZZ Repair Chest Skin, External Approach (ICD-10-PCS; principal; 2020-11-17)
DX: L76.22 Postprocedural hemorrhage of skin and subcutaneous tissue following other procedure (principal)
CPT/HCPCS: 99283

== ENCOUNTER 2020-11-27 20:13 | Observation (INO) | payer OTHER ==
--- OUTSIDE RECORDS SUMMARY | 2020-11-27 20:16 | XMS REPORT | Continuity of Care Document ---
:1980 Author Organization [facility] t Address [address] [place] [address] Care Team Providers Name Role Phone Eliel [...] below below [facility] - 130/80 130/80 Memoria [facility] End stage End stage Problem Active [facility] [employer] [facility] Tobacco Tobacco Problem Active [facility] use use [facility] - disorder disorder Memori a l [facility] Chronic Chronic Problem Active [facility] pain pain [facility] - syndrome syndrome Memori a [facility] [employer] [facility] Dependence Dependence Problem Active [facility] on renal on renal [facility] - dialysis dialysis Memori a 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 [employer] [facility] Anemia of Anemia of Problem Active [facility] chronic chronic [facility] - disease disease Memoria [facility] [employer] [employer] [facility] Allergies, Adverse Reactions, Alerts This patient has [...] ID 2020-05-23 2020-05-23 [facility] [id number] [facility] 11:13:00 11:13:00 [facility] Out[facility] Clinics 2020-05-16 2020-05-16 [facility] [id number] 11:17:00 11:17:00 [facility] Out[facility]ics 2020-05-09 2020-05-09 [facility] [id number] 15:11:00 15:11:00 [facility] Outpati ent [facility] 2020-05-07 2020-05-07 Abstract Eliel, [facility] [id number] 00:00:00 00:00:00 Brigid Mayen MULTISPEC [id number] IALTY [id number] [place] [id number] [facility] 2020-04-16 2020-04-16 [facility] [id number] 14:20:00 14:20:00 [facility] Outpat[facility] Clinics 2020-03-14 2020-03-14 [facility] [id number] 16:40:00 16:40:00 [facility] Outpati ent Clinics 2020-03-07 2020-03-07 [facility] [id number] 15:05:00 15:05:00 [facility] Medicine Outpati ent Clinics 2020-03-06 2020-03-06 [facility] [id number] 08:00:00 08:00:00 [facility] Outpat[facility] ent Clinics 2019-11-21 2019-11-21 [facility] [id number] 09:05:00 09:05:00 [place] [address] [facility] 2019-11-13 2019-11-13 [facility] [place] [id number] 09:27:00 09:27:00 [place] [address] [facility] 2019-11-09 2019-11-09 [facility] [place] [id number] 14:45:00 14:45:00 [facility] 2019-08-11 2019-08-11 [id number] 00:00:00 00:00:00 Brigid A MULTISPEC [id number] IALTY [id number] [place] [id number] [facility] 2019-05-31 2019-05-31 Telephone [place] [phone] [id number] 00:00:00 00:00:00 Brigid A MULTISPEC [id number] IALTY [id number] [place] [id number] [facility] Results This patient has no known results.
[2020-11-27] MEDS ORDERED: FAMOTIDINE 20 MG/2 ML VIAL IV ONE (21:15)
[2020-11-27] MEDS ORDERED: ONDANSETRON 4 MG/2 ML VIAL ONE (21:15)
[2020-11-27 21:18] LABS: Protime INR 1.01
[2020-11-27 21:27] LABS: Absolute Lymphocytes (CBC) 1.9 K/uL (0.7-4.9); Basophils % 0.8 % (0-1.3); Hematocrit 15.3 % (39.6-49.0); Lymphocytes % 11.3 % (15.3-44.8); MPV 7.9 fL (7.6-11.3)
--- NOTE | 2020-11-27 21:34 | RAD REPORT ---
EXAM DESCRIPTION: RAD - Chest Single View - 11/27/2020 9:28 pm CLINICAL HISTORY: CONGESTION Chest pain. COMPARISON: Chest Single View dated 09/21/2019; Chest Single View dated 02/13/2019; CHEST SINGLE VIEW dated 01/03/2014; CHEST SINGLE VIEW dated 06/25/2013 FINDINGS: Portable technique limits examination quality. The lungs are grossly clear. The heart is normal in size. No displaced fractures. IMPRESSION: No acute intrathoracic process suspected.
[2020-11-27 22:06] LABS: ALT/SGPT 7 U/L (12-78); AST/SGOT 6 U/L (15-37); Albumin 2.6 g/dL (3.4-5.0); Alkaline Phosphatase 91 U/L (45-117); BUN Blood Urea Nitrogen 109 mg/dL (7-18); Bicarbonate 23 mmol/L (21-32); Bilirubin Direct < 0.1 mg/dL (0-0.2); Bilirubin Total 0.2 mg/dL (0.2-1.0); Lipase 194 U/L (73-393); Magnesium 2.5 mg/dL (1.8-2.4); NT PRO-BNP 23462 pg/mL (<125); Potassium 3.9 mmol/L (3.5-5.1); Protein, Total 6.6 g/dL (6.4-8.2); Sodium Level 134 mmol/L (136-145); Troponin (Emerg Dept Use Only) 0.02 ng/mL (0.0-0.045)
[2020-11-27 22:11] LABS: Glucose Level 486 mg/dL (74-106)
[2020-11-27] MEDS ORDERED: NA CHLORIDE 0.9% 250 ML ONE (22:40)
--- NOTE | 2020-11-27 23:49 | EDPHYS ---
Physician Documentation [facility] Name: Abhinav John Age: 40 yrs Sex: Male : 1980 Arrival Date: 11/27/2020 Time: 20:17 Bed 2 Private MD: Donavan Dunlap ED Physician Marcell Baig HPI: 11/27 21:47 This 40 yrs old Black Male presents to ER via EMS with complaints of General Weakness. mh7 21:47 The patient presents to the emergency department with nausea, that is moderate, mh7 vomiting, that is intermittent, diarrhea, that is intermittent. Onset: The symptoms/episode began/occurred yesterday. Possible causes: unknown. The symptoms are aggravated by nothing. The symptoms are alleviated by nothing. 22:17 Associated signs and symptoms: Pertinent positives: abdominal pain, diarrhea, nausea, mh7 vomiting, SOB, abdominal pain, lower back pain, Pertinent negatives: anorexia, belching, constipation, dysuria, fever, flatulence, GI bleeding, hematuria. Severity of symptoms: At their worst the symptoms were moderate yesterday, in the emergency department the symptoms are unchanged. Historical: - Allergies: 20:46 No Known Allergies; ea - Home Meds: 20:46 Calci-Chew Oral [Active]; Insulin: Novolin R Sub-Q [Active]; losartan Oral [Active]; ea Metoprolol Tartrate Oral [Active]; - PMHx: 20:46 Hypertension; HD M-W-F; ESRD; Diabetes - NIDDM; ea - Immunization history:: Adult Immunizations up to date. - Social history:: Smoking status: unknown. ROS: 22:17 Constitutional: Negative for fever, chills, and weight loss, Eyes: Negative for injury, mh7 pain, redness, and discharge, ENT: Negative for injury, pain, and discharge, Neck: Negative for injury, pain, and swelling, Cardiovascular: Negative for chest pain, palpitations, and edema, : Negative for injury, bleeding, discharge, and swelling, MS/Extremity: Negative for injury and deformity, Skin: Negative for injury, rash, and discoloration, Neuro: Negative for headache, weakness, numbness, tingling, and seizure, Psych: Negative for depression, anxiety, suicide ideation, homicidal ideation, and hallucinations, Allergy/Immunology: Negative for hives, rash, and allergies, Endocrine: Negative for neck swelling, polydipsia, polyuria, polyphagia, and marked weight changes, Hematologic/Lymphatic: Negative for swollen nodes, abnormal bleeding, and unusual bruising. Exam: 22:17 Constitutional: This is a well developed, well nourished patient who is awake, alert, mh7 and in no acute distress. Head/Face: Normocephalic, atraumatic. Eyes: Pupils equal round and reactive to light, extra-ocular motions intact. Lids and lashes normal. Conjunctiva and sclera are non-icteric and not injected. Cornea within normal limits. Periorbital areas with no swelling, redness, or edema. Neck: Trachea midline, no thyromegaly or masses palpated, and no cervical lymphadenopathy. Supple, full range of motion without nuchal rigidity, or vertebral point tenderness. No Meningismus. Chest/axilla: Normal chest wall appearance and motion. Nontender with no deformity. No lesions are appreciated. Cardiovascular: Regular rate and rhythm with a normal S1 and S2. No gallops, murmurs, or rubs. Normal PMI, no JVD. No pulse deficits. Respiratory: Lungs have equal breath sounds bilaterally, clear to auscultation and percussion. No rales, rhonchi or wheezes noted. No increased work of breathing, no retractions or nasal flaring. Abdomen/GI: Soft, non-tender, with normal bowel sounds. No distension or tympany. No guarding or rebound. No evidence of tenderness throughout. 22:17 Skin: Warm, dry with normal turgor. Normal color with no rashes, no lesions, and no evidence of cellulitis. MS/ Extremity: Pulses equal, no cyanosis. Neurovascular intact. Full, normal range of motion. Neuro: Awake and alert, GCS 15, oriented to person, place, time, and situation. Cranial nerves II-XII grossly intact. Motor strength 5/5 in all extremities. Sensory grossly intact. Cerebellar exam normal. Normal gait. Psych: Awake, alert, with orientation to person, place and time. Behavior, mood, and affect are within normal limits. 22:17 Back: pain, that is moderate, ROM is normal, normal spinal alignment noted, CVA tenderness, is absent, vertebral tenderness, is appreciated at lumbar area, muscle spasm, is not present, Straight leg raises: of both lower extremities does not illicit pain. Vital Signs: 20:45 BP 126 / 79; Pulse 85; Resp 18; Pulse Ox 100% ; ds4 20:50 Weight 108.86 kg; Height 6 ft. 3 in. (190.50 cm); rv 23:50 BP 107 / 66; Pulse 82; Resp 18; Temp 98.9; Pulse Ox 100% ; ea 11/28 00:00 BP 107 / 68; Pulse 84; Resp 19; Temp 98.9; Pulse Ox 100% ; ea 01:15 BP 140 / 60; Pulse 78; Resp 17; Temp 98.9; ea 11/27 20:50 Body Mass Index 30.00 (108.86 kg, 190.50 cm) rv MDM: 11/27 23:47 Differential diagnosis: Nonspecific abd pain, gastritis, diverticulitis, mh7 gastroenteritis. Data reviewed: vital signs, nurses notes, old medical records, lab test result(s), CBC, electrolytes, urinalysis, EKG, radiologic studies, CT scan. Data interpreted: Pulse oximetry: on room air is 100 %. Interpretation: normal. Counseling: I had a detailed discussion with the patient and/or guardian regarding: the historical points, exam findings, and any diagnostic results supporting the discharge/admit diagnosis, lab results, radiology results, the need for further work-up and treatment in the hospital. Response to treatment: the patient's symptoms have mildly improved after treatment. 23:49 Patient medically screened. [facility] 11/27 20:56 Order name: Basic Metabolic Panel; Complete Time: 23:32 [facility] 11/27 20:56 Order name: CBC with Diff; Complete Time: 21:37 [facility] 11/27 20:56 Order name: LFT's; Complete Time: 23:32 [facility] 11/27 20:56 Order name: Magnesium; Complete Time: 23:32 [facility] 11/27 20:56 Order name: NT PRO-BNP; Complete Time: 23:32 [facility] 11/27 20:56 Order name: PT-INR; Complete Time: 21:37 [facility] 11/27 20:56 Order name: Troponin (emerg Dept Use Only); Complete Time: 23:32 [facility] 11/27 20:56 Order name: Lipase; Complete Time: 23:32 [facility] 11/27 20:56 Order name: Flu [facility] 11/27 20:56 Order name: COVID-19 [facility] 11/27 21:38 Order name: Type And Screen [facility] 11/27 20:56 Order name: XRAY Chest (1 view); Complete Time: 21:37 [facility] 11/27 20:56 Order name: CT Abd/Pelvis - Without Contrast [facility] 11/27 21:59 Order name: Packed RBC Leukored [facility] 11/27 23:34 Order name: Ketone, Serum [facility] 11/27 23:34 Order name: Arterial Blood Gas [facility] 11/28 00:34 Order name: CBC with Automated Diff [facility] 11/28 00:34 Order name: CBC with Automated Diff [facility] 11/28 00:34 Order name: Comprehensive Metabolic Panel [facility] 11/28 00:34 Order name: Comprehensive Metabolic Panel [facility] 11/28 07:48 Order name: Glucose, Ancillary Testing [facility] 11/28 09:38 Order name: Transferrin Sat/Iron Binding [facility] 11/28 10:41 Order name: Hematocrit [facility] 11/28 10:44 Order name: Hemoglobin [facility] 11/27 20:56 Order name: EKG; Complete Time: 20:56 [facility] 11/27 20:56 Order name: Cardiac monitoring; Complete Time: 21:46 [facility] 11/27 20:56 Order name: EKG - Nurse/Tech; Complete Time: 21:46 [facility] 11/27 20:56 Order name: IV Saline Lock; Complete Time: 20:59 [facility] 11/27 20:56 Order name: Labs collected and sent; Complete Time: 20:59 [facility] 11/27 20:56 Order name: O2 Per Protocol; Complete Time: 20:59 [facility] 11/27 20:56 Order name: O2 Sat Monitoring; Complete Time: 20:59 [facility] 11/28 00:34 Order name: CONS Pharmacy Consult [facility] 11/28 00:34 Order name: Renal EDMS Administered Medications: 21:05 Drug: Zofran (Ondansetron) 4 mg Route: IVP; Site: left antecubital; ea 21:47 Follow up: Response: No adverse reaction ea 21:07 Drug: Pepcid 20 mg Route: IVP; Site: left antecubital; ea 21:47 Follow up: Response: No adverse reaction 11/28 01:23 Drug: Insulin Regular Human 5 units {Co-Signature: jerad (Suzie Echevarria RN).} Route: IVP; rv Site: left forearm; 02:00 Follow up: Response: No adverse reaction jerad Disposition: 11/27/20 23:49 Hospitalization ordered by Sadiq Torres for Observation. Preliminary diagnosis are Symptomatic Anemia, Gastroenteritis, Diabetes with Hyperglycemia. - Bed requested for [facility] ER HOLD. - Status is Observation. iw - Condition is Stable. - Problem is new. - Symptoms have improved. Signatures: Dispatcher [employer] EDMS Beverley Huynh RN RN iw Gini Benjamin RN RN tl1 Suzie Echevarria RN Reyes Villa ea, RN Marcell Zapata MD MD [facility] Suzie Echevarria RN, ea Corrections: (The following items were deleted from the chart) 11/27 21:58 21:39 PACKED RBC LEUKORED -1+BB.LAB.BRZ ordered. EDMA EDMA 21:58 21:40 ABO/RH typing ordered. EDMA EDMA :58 21:40 Antibody Screen ordered. EDMA EDMA 11/28 01:15 11/27 23:49 Hospitalization Ordered by Sadiq Torres MD for Observation. Preliminary tl1 diagnosis is Symptomatic Anemia; Gastroenteritis; Diabetes with Hyperglycemia. Bed requested for Telemetry/MedSurg (observation). Status is Observation. Condition is Stable. Problem is new. Symptoms have improved. [facility] 11/28 11:17 01:15 11/27/2020 23:49 Hospitalization Ordered by Sadiq Torres MD for Observation. iw Preliminary diagnosis is Symptomatic Anemia; Gastroenteritis; Diabetes with Hyperglycemia. Bed requested for [facility] ER HOLD. Status is Observation. Condition is Stable. Problem is new. Symptoms have improved. tl1
--- NOTE | 2020-11-27 23:49 | ER ---
Nurse's Notes [facility] Name: Abhinav John Age: 40 yrs Sex: Male : 1980 Arrival Date: 11/27/2020 Time: 20:17 Bed 2 Private MD: Donavan Dunlap Diagnosis: Symptomatic Anemia;Gastroenteritis;Diabetes with Hyperglycemia Presentation: 11/27 20:29 Chief complaint: EMS states: complaining of SOB, swelling, nausea, vomiting, diarrhea. rv Dialysis yesterday, blood pressure dropped, given fluids. now he feels he is swelling. also complaining of lower back pain. Coronavirus screen: nausea, shortness of breath, vomiting. Coronavirus screen: Client presents with at least one sign or symptom that may indicate coronavirus-19. Standard/surgical mask placed on the client. Provider contacted for isolation considerations. Ebola Screen: No symptoms or risks identified at this time. 20:29 Method Of Arrival: EMS: [facility] rv 20:29 Acuity: KASEY 3 rv 20:29 Initial Sepsis Screen: Does the patient meet any 2 criteria? No. Patient's initial rv sepsis screen is negative. Does the patient have a suspected source of infection? No. Patient's initial sepsis screen is negative. Risk Assessment: Do you want to hurt yourself or someone else? Patient reports no desire to harm self or others. Onset of symptoms was November 26, 2020. Triage Assessment: 20:49 General: Appears uncomfortable, Behavior is calm, cooperative. Pain: Complains of pain rv in left low back and right low back. GI: Pt is actively vomiting bile. Historical: - Allergies: 20:46 No Known Allergies; ea - Home Meds: 20:46 Calci-Chew Oral [Active]; Insulin: Novolin R Sub-Q [Active]; losartan Oral [Active]; ea Metoprolol Tartrate Oral [Active]; - PMHx: 20:46 Hypertension; HD M-W-F; ESRD; Diabetes - NIDDM; ea - Immunization history:: Adult Immunizations up to date. - Social history:: Smoking status: unknown. Screenin:45 Abuse screen: Denies threats or abuse. Nutritional screening: No deficits noted. ea Tuberculosis screening: No symptoms or risk factors identified. Fall Risk None identified. Assessment: 20:07 General: Appears uncomfortable, Behavior is appropriate for age. Pain: Complains of ea pain in right low back and left low back. Neuro: Level of Consciousness is awake, alert, obeys commands, Oriented to person, place, time. Cardiovascular: Patient's skin is warm and dry. Respiratory: Airway is patent Respiratory effort is even, unlabored, Respiratory pattern is regular, symmetrical. Derm: Skin is dry, Skin is normal, Skin temperature is warm. 21:00 Reassessment: Patient and/or family updated on plan of care and expected duration. Pain ea level reassessed. Patient is alert, oriented x 3, equal unlabored respirations, skin warm/dry/pink. Pt refused covid and flu swabs. 23:50 Reassessment: Patient and/or family updated on plan of care and expected duration. Pain ea level reassessed. Pt alert and oriented x 3, respirations even and unlabored. Blood transfusion initiated. 11/28 00:30 Reassessment: Patient and/or family updated on plan of care and expected duration. Pain ea level reassessed. Patient is alert, oriented x 3, equal unlabored respirations, skin warm/dry/pink. 11:00 Reassessment: Pt. wishes to leave AMA, Dr. Barba notified. Received verbal order that rb3 the pt. must sign out AMA if he wants to leave. I explained to the pt. that his HGB 5.0 and he is putting himself in danger by leaving. Vital Signs: 11/27 20:45 BP 126 / 79; Pulse 85; Resp 18; Pulse Ox 100% ; ds4 20:50 Weight 108.86 kg; Height 6 ft. 3 in. (190.50 cm); rv 23:50 BP 107 / 66; Pulse 82; Resp 18; Temp 98.9; Pulse Ox 100% ; ea 11/28 00:00 BP 107 / 68; Pulse 84; Resp 19; Temp 98.9; Pulse Ox 100% ; ea 01:15 BP 140 / 60; Pulse 78; Resp 17; Temp 98.9; ea 11/27 20:50 Body Mass Index 30.00 (108.86 kg, 190.50 cm) rv ED Course: 11/27 20:17 Patient arrived in ED. sg 20:17 Donavan Dunlap DO is Private Physician. sg 20:29 Deng, Reyes, RN is Primary Nurse. rv 20:37 Marcell Baig MD is Attending Physician. [facility] 20:45 Patient has correct armband on for positive identification. Bed in low position. Call ea light in reach. Side rails up X2. photography teacher on. Pulse ox on. 20:46 Arm band placed on right wrist. Patient placed in an exam room, on a stretcher, on ea pulse oximetry. 20:49 Triage completed. rv 21:07 Inserted saline lock: 20 gauge in left forearm, using aseptic technique. Blood ea collected. 21:28 XRAY Chest (1 view) In Process Unspecified. EDMS 21:53 CT Abd/Pelvis - Without Contrast In Process Unspecified. EDMS 23:48 Sadiq Torres MD is Hospitalizing Provider. [facility] 11/28 01:11 No provider procedures requiring assistance completed. Patient admitted, IV remains in ea place. Administered Medications: 11/27 21:05 Drug: Zofran (Ondansetron) 4 mg Route: IVP; Site: left antecubital; ea 21:47 Follow up: Response: No adverse reaction ea 21:07 Drug: Pepcid 20 mg Route: IVP; Site: left antecubital; ea 21:47 Follow up: Response: No adverse reaction 11/28 01:23 Drug: Insulin Regular Human 5 units {Co-Signature: jerad (Suzie Echevarria RN).} Route: IVP; rv Site: left forearm; 02:00 Follow up: Response: No adverse reaction ea Outcome: 11/27 23:49 Decision to Hospitalize by Provider. [facility] 11/28 01:00 Admitted to ER Hold. Please see [facility] for further documentation. ea Condition: stable 01:12 Instructed on the need for admit, Demonstrated understanding of instructions. ea 11:17 Patient left the ED. iw Signatures: Dispatcher [employer] EDMS Valdo Sosa RN RN sg Williams, Irene, RN RN Martinez Cruz 4 Suzie Echevarria RN RN ea Vicente, Ronaldo, Marcell Zapata RN, MD MD [facility] Lashonda Leyva, RN DOMINIQUE rb3 Suzie Echevarria RN, ea
--- NOTE | 2020-11-28 00:31 | P.HP ---
Certification for Inpatient Patient admitted to: Inpatient With expected LOS: >2 Midnights Practitioner: I am a practitioner with admitting privileges, knowledge of patient current condition, hospital course, and medical plan of care. Services: Services provided to patient in accordance with Admission requirements found in Title 42 Section 412.3 of the Code of Federal Regulations Patient History Date of Service: 11/28/20 Reason for admission: Anemia/ Generalised weakness History of Present Illness: 40 yrs old male with past medical history of diabetes, hypertension, ESRD on dialysis and history of atrial fibrillation presents to ER with complaints of generalized weakness and nausea and vomiting which has been going on since yesterday and has been progressively worsening and was brought to ER. Denies any chest pain. No fever or chills. Denies any hematemesis or melena. Patient has been recently been admitted to the hospital and was recently discharged on 11 17 2020 for chest wall abscess. the patient was assessed in the ER and was found to have anemia with a hemoglobin of 4.9 and was admitted for further management. He was also noted to have hyperglycemia with a blood sugar of 486 but acetone was negative. Allergies No Known Allergies Allergy (Unverified 06/25/12 08:51) Home medications list reviewed: Yes Home Medications: Cinacalcet HCl [Sensipar*] 2 tab PO DAILY AT SUPPER 02/17/19 Calcium Acetate [Phoslo] 667 mg PO SEECOM 09/23/19 Sotalol HCl [Betapace*] 80 mg PO DAILY 11/16/20 Vancomycin/0.9 % Sod Chloride [Vanco 1 Gram/250 ml-0.9% NaCl] 1 gm IV M,W,F #6 plast..bag 11/17/20 - Past Medical/Surgical History Diabetic: Yes Past Medical History: Reviewed- Non-Contributory -: IDDM -: ESRD -: Atrial fibrillation Past Surgical History: Reviewed- Non-Contributory -: I & D buttock -: Right AV fistula - Family History Father -: Hypertension, Diabetes - Social History Smoking Status: Never smoker Alcohol use: No CD- Drugs: No Caffeine use: No Review of Systems 10-point ROS is otherwise unremarkable Physical Examination - Vital Signs Temperature: 98.4 F Blood Pressure: 132/76 Pulse: 74 Respirations: 18 - Physical Exam General: Alert, In no apparent distress, Oriented x3 HEENT: Atraumatic, Normocephalic Neck: Supple, 2+ carotid pulse no bruit Respiratory: Clear to auscultation bilaterally Cardiovascular: Regular rate/rhythm, Normal S1 S2 Capillary refill: <2 Seconds Gastrointestinal: Soft and benign, W/out hepatosplenomegaly Musculoskeletal: No clubbing, No swelling Integumentary: No rashes Neurological: Normal speech, Normal strength at 5/5 x4 extr Lymphatics: No axilla or inguinal lymphadenopathy - Studies Laboratory Data (last 24 hrs) 11/27/20 20:54: PT 11.9, INR 1.01 11/27/20 20:54: WBC 16.7 H D, Hgb 4.9 L* D, Hct 15.3 L* D, Plt Count 345 11/27/20 20:54: Sodium 134 L, Potassium 3.9, BUN 109 H D, Creatinine 10.40 H* D, Glucose 486 H*, Magnesium 2.5 H, Total Bilirubin 0.2, AST 6 L, ALT 7 L, Alkaline Phosphatase 91, Lipase 194 Assessment and Plan - Problems (Diagnosis) (1) Anemia Current Visit: Yes Status: Acute Qualifiers: Anemia type: unspecified type Qualified Code(s): D64.9 - Anemia, unspecified (2) Diabetes mellitus Current Visit: No Status: Chronic Qualifiers: Diabetes mellitus type: type 2 Diabetes mellitus manager long term care insulin use: with manager long term care use Diabetes mellitus complication status: with kidney complications Diabetes mellitus complication detail: with chronic kidney disease Chronic kidney disease stage: on chronic dialysis Qualified Code(s): E11.22 - Type 2 diabetes mellitus with diabetic chronic kidney disease; N18.6 - End stage renal disease; Z79.4 - buttermilk drier operator (current) use of insulin; Z99.2 - Dependence on renal dialysis (3) ESRD (end stage renal disease) Current Visit: No Status: Chronic (4) Hypertension Current Visit: No Status: Chronic Qualifiers: Hypertension type: essential hypertension Qualified Code(s): I10 - Essential (primary) hypertension (5) Morbid obesity Current Visit: No Status: Chronic - Plan Acute anemia Hyperglycemia Diabetes mellitus Hypertension End-stage renal disease on dialysis. Intractable nausea and vomiting. Plan Monitor under telemetry Denies any bleeding Will transfuse 1 unit PRBC Monitor H and H. closely and transfuse p.r.n. Nephrology consulted Insulin sliding scale and basal insulin Continue home medications and titrate as needed Electrolytes monitored and replaced accordingly Will get a stool occult blood get an ultrasound of the abdomen GI/DVT prophylaxis - Advance Directives Does patient have a Living Will: Yes Does patient have a Durable POA for Healthcare: No Time Spent Managing Pts Care (In Minutes): 48
[2020-11-28] MEDS ORDERED: ACETAMINOPHEN 500 MG TAB PO PRN (00:32)
[2020-11-28] MEDS ORDERED: ONDANSETRON 4 MG/2 ML VIAL IV PRN (00:32)
[2020-11-28] MEDS ORDERED: MORPHINE 2 MG/ML SYR IV PRN (00:32)
[2020-11-28 00:34] LABS: Blood Gas Oxyhemoglobin 93.3 % (94-97); Blood O2 Saturation 97.6 % (92-98.5)
[2020-11-28] MEDS ORDERED: D50W 25 GM/50 ML SYRINGE IV PRN (01:34)
[2020-11-28] MEDS ORDERED: GLUCAGON 1 MG/VIAL IM PRN (01:34)
[2020-11-28] MEDS ORDERED: INSULIN -REGULAR HUMAN 50 UNIT/0.5 ML ML ONE ×2 (01:36→08:48)
[2020-11-28] MEDS ORDERED: CALCIUM ACETATE 667 MG TAB PO SCH (02:00)
[2020-11-28 04:29] VITALS: BMI 29.9
[2020-11-28] MEDS ORDERED: INSULIN -REGULAR HUMAN 50 UNIT/0.5 ML ML SQ SCH (07:30)
[2020-11-28] MEDS ORDERED: INSULIN GLARGINE 100 UNITS/ML SQ ONE (08:47)
[2020-11-28] MEDS ORDERED: INSULIN GLARGINE 100 UNITS/ML SQ SCH (09:00)
[2020-11-28] MEDS ORDERED: SOTALOL HCL 80 MG TAB PO SCH (09:00)
[2020-11-28 09:21] VITALS: BP 126/65; TEMP 98.4
[2020-11-28 09:36] VITALS: O2SAT 100
--- NOTE | 2020-11-28 12:35 | P.DS ---
Admission Date: 11/28/20 Discharge Date: 11/28/20 Disposition: AMA-LEFT AGAINST MEDICAL ADVIC Discharge Condition: FAIR Reason for Admission: Anemia/ Generalised weakness - Problems (1) Acute on chronic anemia Status: Acute (2) Diabetes mellitus Status: Chronic Qualifiers: Diabetes mellitus type: type 2 Diabetes mellitus jail insulin use: with middle or intermediate school principal use Diabetes mellitus complication status: with kidney complications Diabetes mellitus complication detail: with chronic kidney disease Chronic kidney disease stage: on chronic dialysis Qualified Code(s): E11.22 - Type 2 diabetes mellitus with diabetic chronic kidney disease; N18.6 - End stage renal disease; Z79.4 - rodent exterminator (current) use of insulin; Z99.2 - Dependence on renal dialysis (3) ESRD (end stage renal disease) Status: Chronic Brief History of Present Illness: 40-year-old gentleman with a history of ESRD on hemodialysis presented to the emergency department with a complaint of nausea and weakness. No melena or hematemesis. Hemoglobin checked in the ED was 4.9. Patient was admitted for further management. Hospital Course: Patient admitted to the medical floor and given 2 units of PRBC transfusion. His posttransfusion hemoglobin was still 5.0. Patient was adamant on going home despite his hemoglobin level. He stated he needs to go to the dialysis center for his dialysis today. I informed him his dialysis today will be done here in the hospital as an inpatient. Patient was alert and oriented x4 and deemed capable of making informed medical decisions. Patient was adamant on leaving. He was made aware it is risky to leave the hospital with this level of hemoglobin without treatment, risks including cardiac arrest. Patient was still adamant on leaving and signed out against medical advice. Vital Signs/Physical Exam: Temp Pulse Resp BP Pulse Ox 98.4 F 69 18 126/65 100 11/28/20 08:00 11/28/20 08:00 11/28/20 08:00 11/28/20 08:00 11/28/20 08:00 Laboratory Data at Discharge: WBC 16.7 K/uL (4.3-10.9) H D 11/27/20 20:54 Hgb 5.0 g/dL (13.6-17.9) L* 11/28/20 10:17 Hct 15.7 % (39.6-49.0) L* 11/28/20 10:17 Plt Count 345 K/uL (152-406) 11/27/20 20:54 PT 11.9 SECONDS (9.5-12.5) 11/27/20 20:54 INR 1.01 11/27/20 20:54 Sodium 134 mmol/L (136-145) L 11/27/20 20:54 Potassium 3.9 mmol/L (3.5-5.1) 11/27/20 20:54 BUN 109 mg/dL (7-18) H D 11/27/20 20:54 Creatinine 10.40 mg/dL (0.55-1.3) H* D 11/27/20 20:54 Glucose 486 mg/dL (74-106) H* 11/27/20 20:54 Magnesium 2.5 mg/dL (1.8-2.4) H 11/27/20 20:54 Total Bilirubin 0.2 mg/dL (0.2-1.0) 11/27/20 20:54 AST 6 U/L (15-37) L 11/27/20 20:54 ALT 7 U/L (12-78) L 11/27/20 20:54 Alkaline Phosphatase 91 U/L (45-117) 11/27/20 20:54 Lipase 194 U/L (73-393) 11/27/20 20:54 Home Medications: Cinacalcet HCl [Sensipar*] 2 tab PO DAILY AT SUPPER 02/17/19 Calcium Acetate [Phoslo] 667 mg PO SEECOM 09/23/19 Sotalol HCl [Betapace*] 80 mg PO DAILY 11/16/20 Vancomycin/0.9 % Sod Chloride [Vanco 1 Gram/250 ml-0.9% NaCl] 1 gm IV M,W,F #6 plast..bag 11/17/20 Followup: NONE,NONE [Primary Care Provider] -
[2020-11-28] MEDS ORDERED: CINACALCET HCL 30 MG TAB PO SCH (17:00)
--- NOTE | 2020-11-28 18:51 | RAD REPORT ---
EXAM DESCRIPTION: Abdomen Pelvis Wo Contrast CLINICAL HISTORY: 40 years Male low back pain;Abd pain COMPARISON: None TECHNIQUE: Images were obtained in axial, sagittal, and coronal planes. No intravenous or oral contr ast was administered. This exam was performed according to our departmental dose-optimization program which includes use of Automated Exposure Control, adjustment of the mA and/or kV according to patient size and/or use of iterative reconstruction technique. FINDINGS: No abnormality involving the liver, spleen, pancreas, gallbladder or adrenal glands bilate rally. Marked vascular calcification. No obstructing renal or ureteral calculi bilaterally. No hydronephrosis bilaterally. Unremarkable cynthia dder. Appendix within normal limits. No bowel obstruction, perforation, or inflammation. No acute osseous abnormality. Increased bony density correlated with known renal disease. No abnormality lower lungs bilaterally. No dilatation of abdominal aorta. No adenopathy or abnormal fluid collections. IMPRESSION: No acute intra-abdominal abnormality. Findings correlating with patient's known chronic renal disease. Electronically signed by: Susana Luna MD 11/27/2020 10:14 PM COMPUTATIONAL CHEMIST Due to temporary technical issues with the PACS/Fluency reporting system, reports are being signed by the in house radiologists without review as a courtesy to insure prompt reporting. The interpreting radiologist is fully responsible for the content of the report
--- NOTE | 2020-11-29 16:12 | EKG ---
Test Date: 2020-11-27 Test Time: 21:25:28 Partition Assembler: KATELIN MEASUREMENT RESULTS: Intervals: Rate: 79 AL: 146 QRSD: 94 QT: 418 QTc: 479 [place]: P: 65 AL: 146 QRS: -14 T: 74 INTERPRETIVE STATEMENTS: Normal sinus rhythm Normal ECG Compared to ECG 09/22/2019 07:44:38 Atrial flutter no longer present Left anterior fascicular block no longer present Electronically Signed On 11-29-20 16:09:42 CRUSHING FOREMAN by Rj Glover
== END 2020-11-28 11:17 | disposition left against medical advice (07) ==
LOC: ER 20:13 → INTOOBSV 11-28 01:13 → ERHOLD 11-28 01:13
PROVIDERS: ADMIT Family Medicine; ATTEND Internal Medicine
DX: E11.22 Type 2 diabetes mellitus with diabetic chronic kidney disease (principal); N18.6 End stage renal disease; Z99.2 Dependence on renal dialysis; D63.1 Anemia in chronic kidney disease; Z79.4 Long term (current) use of insulin; I48.91 Unspecified atrial fibrillation; I12.0 Hypertensive chronic kidney disease with stage 5 chronic kidney disease or end stage renal disease; E66.01 Morbid (severe) obesity due to excess calories; Z68.30 Body mass index [BMI] 30.0-30.9, adult
CPT/HCPCS: 93005; 85025; 80048; 36415; 82010; 86900; 83735; 86850; 85610; 86901; 82947; 80076; 85018; 85014; 84484; 83690; 83540; 83880; 84466; 74176; 71045; 82805; 99285; J1815; P9016 ×2; J7050; J2405

== ENCOUNTER 2020-11-30 13:34 | Emergency (ER) | payer OTHER ==
--- OUTSIDE RECORDS SUMMARY | 2020-11-30 13:36 | XMS REPORT | Continuity of Care Document ---
:1980 Author Organization [facility] t Address [address] [place] [address] Care Team Providers Name Role Phone Eliel [...] below below [facility] - 130/80 130/80 [facility] End stage End stage Problem Active [facility] Tobacco Tobacco Problem Active [facility] use use [facility] - disorder disorder [facility] a l [facility] Chronic Chronic Problem Active [facility] pain pain [facility] - syndrome syndrome [facility] Dependence Dependence Problem Active [facility] on renal on renal [facility] - dialysis dialysis [facility] Atrial Atrial Problem Active [facility] fibrillati fibrillati Jennifer kes - on, on, Memoria unspecifie unspecifie l d type d type [facility] 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 Medications Ordered Filled Start Stop Current Ordering Indication Dosage Frequency Signature Comments Components Source Medication Medication Date Date Medication? Clinician (SIG) Name Name Dilan Kong Yes Donavan inject [address] FlexTouch FlexTouch [place] units Martínez es - Memoria l Outpati ent [facility] Procedures This patient has no known procedures. Encounters Start End Encounter Admission Attending Care Care Encounter Source Date/Time Date/Time Type Type Clinicians Facility Department ID 2020-05-23 2020-05-23 [facility] [id number] [facility] 11:13:00 11:13:00 [facility] 2020-05-16 2020-05-16 [facility] [id number] 11[facility]17:00 11:17:00 [facility] 2020-05-09 2020-05-09 [facility] [id number] 15:11:00 15:11:00 [facility] Outpati ent [facility] 2020-05-07 2020-05-07 Abstract Eliel, [facility] [id number] 00:00:00 00:00:00 Brigid Mayen MULTISPEC [id number] IALTY [id number] [place] [id number] [facility] 2020-04-16 2020-04-16 [facility] [id number] [facility] 14:20:00 14:20:00 [facility] Outpati ent Clinics 2020-03-14 2020-03-14 [facility] [id number] 16:40:00 16:40:00 [facility] Out[facility] Clin[facility] 2020-03-07 2020-03-07 [facility] [id number] 15:05:00 15:05:00 [facility] Out[facility] Clinics 2020-03-06 2020-03-06 [facility] [id number] [address] 08:00:00 08:00:00 [facility] Out[facility] Clinics 2019-11-21 2019-11-21 [facility] [id number] 09:05:00 09:05:00 [place] [address] [facility] - Drive [facility] 2019-11-13 2019-11-13 [facility] [id number] 09:27:00 09:27:00 [place] [address] Luke [facility] - Drive [facility] 2019-11-09 2019-11-09 [facility] [place] [id number] 14:45:00 14:45:00 t [facility] s Drive [facility] ent [facility] 2019-08-11 2019-08-[id number] 00:00:00 00:00:00 Rainey A MULTISPEC [id number] IAL[place] [id number] [place] [id number] [facility] 2019-05-31 2019-05-31 Telephone [place] [id number] 00:00:00 00:00:00 Rainey A MULTISPEC [id number] IAL[place] [id number] [place] [id number] [facility] Results This patient has no known results.
[2020-11-30 15:09] LABS: Protime INR 0.97
[2020-11-30 15:22] LABS: Basophils % 0.9 % (0-1.3); Hematocrit 13.8 % (39.6-49.0); Lymphocytes % 13.6 % (15.3-44.8); MPV 8.2 fL (7.6-11.3); RBC Red Blood Cell Count 1.65 M/uL (4.33-5.43)
[2020-11-30 15:44] LABS: ALT/SGPT < 6 U/L (12-78); AST/SGOT 13 U/L (15-37); Albumin 2.8 g/dL (3.4-5.0); Alkaline Phosphatase 87 U/L (45-117); BUN Blood Urea Nitrogen 70 mg/dL (7-18); Bicarbonate 26 mmol/L (21-32); Bilirubin Direct < 0.1 mg/dL (0-0.2); Bilirubin Total 0.2 mg/dL (0.2-1.0); Glucose Level 298 mg/dL (74-106); Magnesium 2.4 mg/dL (1.8-2.4); NT PRO-BNP 33920 pg/mL (<125); Potassium 3.2 mmol/L (3.5-5.1); Protein, Total 6.5 g/dL (6.4-8.2); Sodium Level 137 mmol/L (136-145)
[2020-11-30 15:45] LABS: Troponin (Emerg Dept Use Only) 6.15 ng/mL (0.0-0.045)
--- NOTE | 2020-11-30 16:03 | EDPHYS ---
Physician Documentation [facility] Name: Abhinav John Age: 40 yrs Sex: Male : 1980 Arrival Date: 11/30/2020 Time: 14:11 Bed 17 Private MD: AYDE Physician Biju Garcia HPI: 11/30 14:39 This 40 yrs old Black Male presents to ER via EMS with complaints of Chest Pain. pm1 14:39 The patient or guardian reports chest pain that is located primarily in the anterior pm1 aspect of left upper chest. Onset: 5 day(s) ago. The pain does not radiate. Associated signs and symptoms: Pertinent positives: right hand numbness and tingling. Historical: - Allergies: 14:18 No Known Allergies; ll1 - PMHx: 14:18 Diabetes - NIDDM; ESRD; HD M-W-F; Hypertension; ll1 - PSHx: 14:18 I\T\D; ll1 - Immunization history:: Flu vaccine is up to date. - Social history:: Smoking status: Patient denies any tobacco usage or history of. ROS: 14:39 Constitutional: Negative for fever, chills, and weight loss, Neck: Negative for injury, pm1 pain, and swelling. 14:39 Respiratory: Negative for shortness of breath, cough, wheezing, and pleuritic chest pain, Abdomen/GI: Negative for abdominal pain, nausea, vomiting, diarrhea, and constipation, Back: Negative for injury and pain, MS/Extremity: Negative for injury and deformity, Skin: Negative for injury, rash, and discoloration. 14:39 Cardiovascular: Positive for chest pain, of the anterior aspect of left upper chest, Negative for edema, palpitations. 14:39 Neuro: Positive for numbness, tingling, of the right finger tips, Negative for altered mental status, dizziness, headache. Exam: 14:39 Constitutional: This is a well developed, well nourished patient who is awake, alert, pm1 and in no acute distress. Head/Face: Normocephalic, atraumatic. Chest/axilla: Normal chest wall appearance and motion. Nontender with no deformity. No lesions are appreciated. Cardiovascular: Regular rate and rhythm with a normal S1 and S2. No gallops, murmurs, or rubs. Normal PMI, no JVD. No pulse deficits. Respiratory: Lungs have equal breath sounds bilaterally, clear to auscultation and percussion. No rales, rhonchi or wheezes noted. No increased work of breathing, no retractions or nasal flaring. 14:39 Back: No spinal tenderness. No costovertebral tenderness. Full range of motion. Skin: Warm, dry with normal turgor. Normal color with no rashes, no lesions, and no evidence of cellulitis. 14:39 Eyes: Conjunctiva: pale, bilaterally. 14:39 Abdomen/GI: Inspection: obese Palpation: abdomen is soft and non-tender, in all quadrants. 14:39 Neuro: Orientation: is normal, Mentation: is normal, Motor: is normal, moves all fours, Sensation: is normal, no obvious gross deficits. 15:57 Abdomen/GI: Rectal exam: Stool: guaiac positive, black, Alex welder/installer. pm1 Vital Signs: 14:26 BP 132 / 70; Pulse 72; Resp 17; Temp 97.8; Pulse Ox 96% ; Pain 8/10; ll1 16:18 BP 145 / 73; Pulse 68; Pulse Ox 99% on R/A; ll1 16:39 Weight 108.86 kg; eb 19:04 BP 116 / 72; Pulse 70; Resp 17; Temp 98.8; Pulse Ox 100% on R/A; ll1 20:00 BP 149 / 76; Pulse 71; Resp 16; Pulse Ox 100% on R/A; jb4 21:00 BP 137 / 65; Pulse 72; Resp 16; Pulse Ox 100% on R/A; jb4 22:00 BP 134 / 68; Pulse 71; Resp 16; Pulse Ox 99% on R/A; jb4 23:00 BP 135 / 70; Pulse 66; Resp 16; Temp 98.6; Pulse Ox 100% ; jb4 03 00:00 BP 123 / 61; Pulse 68; Resp 16; Pulse Ox 100% on R/A; jb4 01:00 BP 125 / 75; Pulse 67; Resp 15; Pulse Ox 99% ; jb4 02:00 BP 107 / 66; Pulse 69; Resp 16; Pulse Ox 100% on R/A; jb4 03:00 BP 123 / 53; Pulse 65; Resp 16; Pulse Ox 100% on R/A; jb4 04:15 BP 138 / 75; Pulse 74; Resp 16; Pulse Ox 100% on R/A; jb4 05:00 BP 139 / 78; Pulse 69; Resp 15; Pulse Ox 97% on R/A; jb4 05:45 BP 134 / 75; Pulse 74; Resp 16; Pulse Ox 97% on R/A; jb4 06:30 BP 115 / 70; Pulse 66; Resp 16; Pulse Ox 98% on R/A; jb4 07:45 BP 124 / 67; Pulse 71; Resp 18; Temp 98.4; Pulse Ox 100% on R/A; Pain 0/10; em MDM: 11/30 14:22 Patient medically screened. pm1 15:42 Physician consultation: Conchita Castillo MD was contacted at 15:42, regarding pm1 consult, patient's condition, in the emergency department to see patient at 15:42. 15:44 Physician consultation: Conchita Castillo MD 2 units PRBC. Lasix 80 mg after pm1 the first unit. 16:00 Data reviewed: vital signs. pm1 16:00 Counseling: I had a detailed discussion with the patient and/or guardian regarding: the pm1 historical points, exam findings, and any diagnostic results supporting the discharge/admit diagnosis, lab results, the need to transfer to another facility, [facility] does not immediately have the required specialist, No GI information technology technician. 18:19 ED course: Patient is chest pain free. pm1 19:39 ED course: Patient reports feeling better and first unit of PRBC given. Continues to pm1 being chest pain free. Will order lasix as recommended by support coordinator prior to second unit of PRBC. 12/01 05:53 ED course: pt accepted by Dr Tony at [id number]. tw4 11/30 14:36 Order name: Basic Metabolic Panel; Complete Time: 15:48 pm1 11/30 14:36 Order name: CBC with Diff; Complete Time: 15:32 pm1 11/30 14:36 Order name: LFT's; Complete Time: 15:48 pm1 11/30 14:36 Order name: Magnesium; Complete Time: 15:48 pm1 11/30 14:36 Order name: NT PRO-BNP; Complete Time: 15:48 pm1 11/30 14:36 Order name: PT-INR; Complete Time: 15:31 pm1 11/30 14:36 Order name: Troponin (emerg Dept Use Only); Complete Time: 15:48 pm1 11/30 15:31 Order name: Type And Screen pm1 11/30 15:41 Order name: LAB Add On eb 11/30 15:46 Order name: Packed RBC Leukored EDMS 11/30 15:58 Order name: Occult Blood--Ancillary; Complete Time: 16:07 eb 11/30 17:52 Order name: SARS-COV-2 RT PCR; Complete Time: 17:57 EDMS 12/01 02:38 Order name: CBC with Diff tw4 11/30 14:36 Order name: XRAY Chest (1 view); Complete Time: 16:07 pm1 11/30 14:36 Order name: EKG; Complete Time: 14:37 pm1 11/30 14:36 Order name: Cardiac monitoring; Complete Time: 14:38 pm1 11/30 14:36 Order name: EKG - Nurse/Tech; Complete Time: 14:38 pm1 11/30 14:36 Order name: IV Saline Lock; Complete Time: 14:38 pm1 11/30 14:36 Order name: Labs collected and sent; Complete Time: 14:38 pm1 11/30 14:36 Order name: O2 Per Protocol; Complete Time: 14:38 pm1 11/30 14:36 Order name: O2 Sat Monitoring; Complete Time: 14:38 pm1 11/30 15:31 Order name: Transfuse; Complete Time: 19:23 pm1 12/01 02:39 Order name: CBC with Automated Diff; Complete Time: 05:48 EDMS 12/01 04:42 Order name: Troponin (emerg Dept Use Only) mw2 Administered Medications: 11/30 16:17 Drug: morphine 4 mg Route: IVP; Site: left antecubital; ll1 19:23 Follow up: Response: No adverse reaction; RASS: Alert and Calm (0) jb4 16:18 Drug: Zofran (Ondansetron) 4 mg Route: IVP; Site: left antecubital; ll1 19:23 Follow up: Response: No adverse reaction; RASS: Alert and Calm (0) jb4 16:18 Drug: ProTONIX 40 mg Route: IVP; Site: left antecubital; 1 17:17 Drug: ProTONIX 8 mg/hr Route: IV; Rate: 25 ml/hr; Site: left antecubital; ll1 12/01 04:14 Follow up: Response: No adverse reaction; IV Status: Completed infusion; IV Intake: jb4 250ml 11/30 20:56 Drug: Lasix 80 mg Route: IVP; Site: left antecubital; jb4 21:30 Follow up: Response: No adverse reaction jb4 Disposition: 12/02 08:33 Co-signature as Attending Physician, Biju Garcia MD I agree with the assessment and yolette plan of care. Disposition: 11/30/20 16:02 Transfer ordered to Other Acute Care Facility. Diagnosis are Non-ST elevation (NSTEMI) myocardial infarction, Anemia, unspecified, Gastrointestinal hemorrhage, unspecified, End stage renal disease. - Reason for transfer: Specialty. - Accepting physician is Hospitalist. - Condition is Fair. - Problem is new. - Symptoms have improved. Signatures: Dispatcher [employer] [facility] Biju Garcia MD MD cha Marinas, Patrick, BOOKKEEPING SERVICE SALES AGENT BOOKKEEPING SERVICE SALES AGENT pm1 Ashish Grey, RN RN jb4 Andrés Parsons MD MD tw4 Lisseth Galeas Lynsay, RN RN ll1 Corrections: (The following items were deleted from the chart) 11/30 16:38 15:57 CORONAVIRUS+ ordered. [facility] 16:57 16:02 11/30/2020 16:[address] [facility]. pm1 Diagnosis is Non-ST elevation (NSTEMI) myocardial infarction; Anemia, unspecified; Gastrointestinal hemorrhage, unspecified. Reason for transfer: Specialty. Accepting physician is [facility]. Condition is Fair. Problem is new. Symptoms have improved. pm1 18:21 16:57 11/30/2020 16:[address] [facility]. pm1 Diagnosis is Non-ST elevation (NSTEMI) myocardial infarction; Anemia, unspecified; Gastrointestinal hemorrhage, unspecified; End stage renal disease. Reason for transfer: Specialty. Accepting physician is [facility]. Condition is Fair. Problem is new. Symptoms have improved. pm1 12/01 08:53 11/30 18:21 11/30/2020 16:02 Transfer ordered to Other Acute Care Facility. Diagnosis eb is Non-ST elevation (NSTEMI) myocardial infarction; Anemia, unspecified; Gastrointestinal hemorrhage, unspecified; End stage renal disease. Reason for transfer: Specialty. Accepting physician is Hospitalist. Condition is Fair. Problem is new. Symptoms have improved. pm1
--- NOTE | 2020-11-30 16:03 | ER ---
Nurse's Notes [facility] Name: Abhinav John Age: 40 yrs Sex: Male : 1980 Arrival Date: 11/30/2020 Time: 14:11 Bed 17 Private MD: Diagnosis: Non-ST elevation (NSTEMI) myocardial infarction;Anemia, unspecified;Gastrointestinal hemorrhage, unspecified;End stage renal disease Presentation: 11/30 14:18 Chief complaint: Patient states: CP and R arm tingling off/on for 5 days. Only did .64L ll1 off in dialysis today before they stopped. 20 G R AC-500 ml NS bolus given. Sugar 385 for EMS. Coronavirus screen: Client denies travel out of the [place] in the last 14 days. At this time, the client does not indicate any symptoms associated with coronavirus-19. Ebola Screen: Patient denies travel to an Ebola-affected area in the 21 days before illness onset. Initial Sepsis Screen: Does the patient meet any 2 criteria? No. Patient's initial sepsis screen is negative. Does the patient have a suspected source of infection? No. Patient's initial sepsis screen is negative. Risk Assessment: Do you want to hurt yourself or someone else? Patient reports no desire to harm self or others. Onset of symptoms was November 27, 2020. 14:18 Method Of Arrival: Ambulatory ll1 14:18 Method Of Arrival: EMS: [facility] 1 14:18 Acuity: KASEY 3 ll1 Historical: - Allergies: 14:18 No Known Allergies; ll1 - PMHx: 14:18 Diabetes - NIDDM; ESRD; HD M-W-F; Hypertension; ll1 - PSHx: 14:18 I\\T\\D; ll1 - Immunization history:: Flu vaccine is up to date. - Social history:: Smoking status: Patient denies any tobacco usage or history of. Screenin:05 Abuse screen: Denies threats or abuse. Nutritional screening: No deficits noted. ll1 Tuberculosis screening: No symptoms or risk factors identified. Fall Risk IV access (20 points). Ambulatory Aid- Crutches/Cane/Walker (15 pts). Gait- Weak (10 pts.). Total Yoder Fall Scale indicates High Risk Score (45 or more points). Fall prevention measures have been instituted. Side Rails Up X 2 Frequent Obs/Assessments Occuring As available patient and family educated on Fall Prevention Program and Strategies. Assessment: 14:20 General: Appears uncomfortable, ill, Behavior is calm, cooperative, appropriate for ll1 age. Pain: Complains of pain in anterior aspect of left upper chest Quality of pain is described as aching, Aggravated by increased activity. Neuro: Level of Consciousness is awake, alert, obeys commands, Oriented to person, place, time, situation, Appropriate for age Heat Regulator are equal bilaterally Moves all extremities. Full function Gait is steady, Speech is normal, Facial symmetry appears normal, Reports weakness. Cardiovascular: Reports chest pain, fatigue, shortness of breath, Heart tones S1 S2 Capillary refill < 3 seconds Clubbing of nail beds is absent JVD is absent Patient's skin is warm and dry. Pulses are all present. Rhythm is regular. Respiratory: Reports shortness of breath Airway is patent Trachea midline Respiratory effort is even, unlabored, Respiratory pattern is regular, symmetrical, Breath sounds are clear bilaterally. GI: No deficits noted. Musculoskeletal: Circulation, motion, and sensation intact. Capillary refill < 3 seconds, Reports weakness in generalized. 15:20 Reassessment: No changes from previously documented assessment. Patient and/or family ll1 updated on plan of care and expected duration. Pain level reassessed. Patient is alert, oriented x 3, equal unlabored respirations, skin warm/dry/pink. 16:20 Reassessment: No changes from previously documented assessment. Patient and/or family ll1 updated on plan of care and expected duration. Pain level reassessed. Patient is alert, oriented x 3, equal unlabored respirations, skin warm/dry/pink. 17:20 Reassessment: No changes from previously documented assessment. Patient and/or family ll1 updated on plan of care and expected duration. Pain level reassessed. Patient is alert, oriented x 3, equal unlabored respirations, skin warm/dry/pink. 19:00 Reassessment: Patient appears in no apparent distress at this time. Patient and/or jb4 family updated on plan of care and expected duration. Pain level reassessed. Patient is alert, oriented x 3, equal unlabored respirations, skin warm/dry/pink. Patient states feeling better. 20:00 Reassessment: Patient appears in no apparent distress at this time. Patient and/or jb4 family updated on plan of care and expected duration. Pain level reassessed. Patient is alert, oriented x 3, equal unlabored respirations, skin warm/dry/pink. Patient denies pain at this time. 21:00 Reassessment: Patient appears in no apparent distress at this time. Patient and/or jb4 family updated on plan of care and expected duration. Pain level reassessed. Patient is alert, oriented x 3, equal unlabored respirations, skin warm/dry/pink. 22:00 Reassessment: Patient appears in no apparent distress at this time. Patient and/or jb4 family updated on plan of care and expected duration. Pain level reassessed. Patient is alert, oriented x 3, equal unlabored respirations, skin warm/dry/pink. 23:00 Reassessment: Patient appears in no apparent distress at this time. Patient and/or jb4 family updated on plan of care and expected duration. Pain level reassessed. Patient is alert, oriented x 3, equal unlabored respirations, skin warm/dry/pink. 23:30 Reassessment: Blood transfusion complete. jb4 12/01 00:00 Reassessment: Patient appears in no apparent distress at this time. Patient and/or jb4 family updated on plan of care and expected duration. Pain level reassessed. PT resting in bed with eyes closed, no s/s of pain or distress noted. 01:00 Reassessment: Patient appears in no apparent distress at this time. No changes from jb4 previously documented assessment. Patient and/or family updated on plan of care and expected duration. Pain level reassessed. 02:00 Reassessment: PT is resting in bed with eyes closed, no s/s or pain or distress noted, jb4 respirations are even and unlabored. 03:00 Reassessment: Patient appears in no apparent distress at this time. No changes from jb4 previously documented assessment. Patient and/or family updated on plan of care and expected duration. Pain level reassessed. 04:00 Reassessment: Patient appears in no apparent distress at this time. Patient and/or jb4 family updated on plan of care and expected duration. Pain level reassessed. Patient is alert, oriented x 3, equal unlabored respirations, skin warm/dry/pink. 05:00 Reassessment: Patient appears in no apparent distress at this time. Patient and/or jb4 family updated on plan of care and expected duration. Pain level reassessed. Patient is alert, oriented x 3, equal unlabored respirations, skin warm/dry/pink. 06:00 Reassessment: Patient and/or family updated on plan of care and expected duration. Pain jb4 level reassessed. PT is resting in bed with eyes closed, respirations are even and unlabored with no s/s of pain or distress noted. 06:56 Reassessment: Patient appears in no apparent distress at this time. No changes from jb4 previously documented assessment. Patient and/or family updated on plan of care and expected duration. Pain level reassessed. 07:45 Reassessment: Patient appears in no apparent distress at this time. Patient and/or em family updated on plan of care and expected duration. Pain level reassessed. Patient is alert, oriented x 3, equal unlabored respirations, skin warm/dry/pink. Patient denies pain at this time. 08:11 Reassessment: report given to DOMINIQUE Montanez at [facility], pending EMS em transportation. Vital Signs: 11/30 14:26 BP 132 / 70; Pulse 72; Resp 17; Temp 97.8; Pulse Ox 96% ; Pain 8/10; ll1 16:18 BP 145 / 73; Pulse 68; Pulse Ox 99% on R/A; ll1 16:39 Weight 108.86 kg; eb 19:04 BP 116 / 72; Pulse 70; Resp 17; Temp 98.8; Pulse Ox 100% on R/A; ll1 20:00 BP 149 / 76; Pulse 71; Resp 16; Pulse Ox 100% on R/A; jb4 21:00 BP 137 / 65; Pulse 72; Resp 16; Pulse Ox 100% on R/A; jb4 22:00 BP 134 / 68; Pulse 71; Resp 16; Pulse Ox 99% on R/A; jb4 23:00 BP 135 / 70; Pulse 66; Resp 16; Temp 98.6; Pulse Ox 100% ; jb4 12/01 00:00 BP 123 / 61; Pulse 68; Resp 16; Pulse Ox 100% on R/A; jb4 01:00 BP 125 / 75; Pulse 67; Resp 15; Pulse Ox 99% ; jb4 02:00 BP 107 / 66; Pulse 69; Resp 16; Pulse Ox 100% on R/A; jb4 03:00 BP 123 / 53; Pulse 65; Resp 16; Pulse Ox 100% on R/A; jb4 04:15 BP 138 / 75; Pulse 74; Resp 16; Pulse Ox 100% on R/A; jb4 05:00 BP 139 / 78; Pulse 69; Resp 15; Pulse Ox 97% on R/A; jb4 05:45 BP 134 / 75; Pulse 74; Resp 16; Pulse Ox 97% on R/A; jb4 06:30 BP 115 / 70; Pulse 66; Resp 16; Pulse Ox 98% on R/A; jb4 07:45 BP 124 / 67; Pulse 71; Resp 18; Temp 98.4; Pulse Ox 100% on R/A; Pain 0/10; em ED Course: 11/30 14:11 Patient arrived in ED. ss 14:12 Lucia Johnson RN is Primary Nurse. ll1 14:12 Arm band placed on Patient placed in an exam room, on a stretcher. ll1 14:20 Triage completed. ll1 14:21 Darrell Colby NP is PHCP. pm1 14:21 Biju Garcia MD is Attending Physician. pm1 14:40 Maintain EMS IV. Dressing intact. Good blood return noted. Site clean \\T\\ dry. Gauge \\T\\ ll 1 site: 20 G L AC. 14:42 EKG done, by ED staff, reviewed by Darrell Colby NP. jp3 15:01 XRAY Chest (1 view) In Process Unspecified. EDMS 15:30 Notified Nurse Practitioner and/or Physician Paste Up Worker of a critical lab result(s), HGB ll1 4.2, HCT low also. 15:56 T\\T\\S collected, blood band applied to patient. Maintain EMS IV. Dressing intact. Good jp3 blood return noted. Site clean \\T\\ dry. Gauge \\T\\ site: 18 gauge in LEFT AC. Patient maintains SpO2 saturation greater than 95% on room air. 16:05 initiated a transfer with Bharati from the [facility] Transfer [facility]/ per Bharati they are eb at ICU capacity and will have to decline the patient in transfer. 16:07 initiated a transfer Fadia from the [facility]. eb 16:25 per Fadia Juarez Rn from the [facility] Transfer Center/ [facility] will have eb to decline the patient in transfer due to their ICU's being at capacity. 16:35 COVID swab sent to lab. jp3 16:45 initiated a transfer with Emily from the [facility] transfer Center/ per Emily all [facility] including [place] are at ICU capacity they will have to decline the patient in transfer. 16:54 initiated a transfer with Taurus from the [facility] transfer center. eb 17:47 Taurus from the [facility] Transfer center called to decline the patient in transfer their eb facilities are at ICU Capacity and will have to decline the patient in transfer/. 17:49 initiated a transfer with Amanda Diaz from the [facility] Transfer Center. eb 17:55 per Amanda from the [facility] Transfer Center Patient has been declined due to being at ICU Capacity. 18:11 called the [facility] at [phone] / Elfego says he will page the [facility] freight traffic consultant and eb someone will call us back. 18:48 Tomy from the [facility] called he will start working on finding us an ICU bed and will eb call back with information. 19:01 Inserted saline lock: 22 gauge in left hand, using aseptic technique. ll1 19:05 Patient has correct armband on for positive identification. Bed in low position. Call ll1 light in reach. Side rails up X 1. Pulse ox on. NIBP on. 20:48 Called [facility] transfer center spoke to Gail the Mechanism Assembler to check on 2 the status of the transfer. She stated "I have no idea of this transfer, I don't even know if we have beds give me 10 minutes and I will give you a call back.". 21:00 called [facility] spoke to Rasta the freight traffic consultantmobile home set up person to see about the status of the mw2 transfer. I told him "I called [facility] and spoke to the Mechanism Assembler to see about the status of the transfer, and she told me that she doesn't know anything about the patient of the transfer." He told me " Okay I will give them a call and then I will call you back.". 21:21 Rasta the freight traffic consultantmobile home set up person from [facility] called to inform me he spoke to the House 2 Transplanter from [facility]. She told him "She is working on the transfer and that they are currently moving patients around to give the patient a bed." He also told me that he spoke [facility] to see if they have beds. 23:12 called Gail the Mechanism Assembler from [facility] to check on the bed status. She mw2 told me " I'm still working on getting him a bed could you fax over the patients demographic sheet, covid result and lab results to [phone]. I'll get everything started and hopefully we can get this man a bed.". 12/01 01:48 called Gail the Mechanism Assembler from [facility] to check on the bed status. She mw2 stated " I'm currently speaking with the ICU Charge Nurse right now we are still figuring out the bed situation, but I promise I will get back to you.". 03:57 called [facility] spoke to Neville Rogel the Mechanism Assembler to see if they mw2 had any ICU beds. She stated "we do not we are currently holding in our ER.". 05:23 Gail the Mechanism Assembler from [facility] called to give us the number to the mw2 hospitalist. Dr. Alvarez [phone] to doc to doc. After we are done doing doc to doc Gail wanted us to call her back. 06:04 tried to call Gail from [facility] back but was unable to reach her due to her mw2 being in a code, but the portable router operator stated "she will call us back in 5 minutes.". 07:18 administrative approval given by Denae Ritter/ Gail Payne/ patient has been accepted to [facility] ICU #[id number]/ Dr. Alvarez has accepted the patient in transfer/ report to be called to [phone]. 08:45 No provider procedures requiring assistance completed. Patient transferred, IV remains em in place. Administered Medications: 11/30 16:17 Drug: morphine 4 mg Route: IVP; Site: left antecubital; ll1 19:23 Follow up: Response: No adverse reaction; RASS: Alert and Calm (0) jb4 16:18 Drug: Zofran (Ondansetron) 4 mg Route: IVP; Site: left antecubital; ll1 19:23 Follow up: Response: No adverse reaction; RASS: Alert and Calm (0) jb4 16:18 Drug: ProTONIX 40 mg Route: IVP; Site: left antecubital; ll1 17:17 Drug: ProTONIX 8 mg/hr Route: IV; Rate: 25 ml/hr; Site: left antecubital; ll1 12/01 04:14 Follow up: Response: No adverse reaction; IV Status: Completed infusion; IV Intake: jb4 250ml 11/30 20:56 Drug: Lasix 80 mg Route: IVP; Site: left antecubital; jb4 21:30 Follow up: Response: No adverse reaction jb4 Intake: 12/01 04:14 IV: 250ml; Total: 250ml. jb4 Outcome: 11/30 16:02 ER care complete, transfer ordered by MD. pm1 12/01 08:45 Transferred by ground EMS Transfer form completed. X-rays sent w/ patient. Note: [facility] Condition: stable Instructed on the need for transfer, Demonstrated understanding of instructions. 08:53 Patient left the ED. eb Signatures: Dispatcher [employer] EDMS Celio Alex RN RN em Smirch, Shelby, RN RN ss Marinas, Patrick, MIRYAM CRIMINAL ATTORNEY pm1 Ashish Grey RN RN jb4 Parvez David 2 Lisseth Galeas Jacob 3 Lucia Johnson, RN RN ll1 Corrections: (The following items were deleted from the chart) 11/30 20:09 20:00 Reassessment: Patient appears in no apparent distress at this time. Patient jb4 and/or family updated on plan of care and expected duration. Pain level reassessed. Patient is alert, oriented x 3, equal unlabored respirations, skin warm/dry/pink. jb4 21:30 21:00 called [facility] spoke to the freight traffic consultantmobile home set up person to see about the [facility]. I told him "I called [facility] and spoke to the Mechanism Assembler to see about the status of the transfer, and she told me that she doesn't know anything about the patient of the transfer." He told me " Okay I will give them a call and then I will call you back." mw2 23:22 20:48 Called [facility] transfer center spoke to Cem the Mechanism Assembler to check mw2 on the status of the transfer. She stated "I have no idea of this transfer, I don't even know if we have beds give me 10 minutes and I will give you a call back." mw2 12/01 06:07 05:23 Gail the Mechanism Assembler from [facility] called to give us the number to mw2 the hospitalist. Dr. Alvarez [phone] to doc to doc mw2
--- NOTE | 2020-11-30 16:06 | RAD REPORT ---
EXAM DESCRIPTION: Jordin Single View11/30/2020 3:01 pm CLINICAL HISTORY: Chest pain COMPARISON: October 2020 FINDINGS: The lungs appear clear of acute infiltrate. The heart is borderline enlarged. Upper lobe vessels are prominent indicative pulmonary venous hypertension
[2020-11-30] MEDS ORDERED: MORPHINE 4 MG/ML SYR ONE (16:23)
[2020-11-30] MEDS ORDERED: PANTOPRAZOLE 40 MG INJ ONE ×2 (16:24→17:27)
[2020-11-30] MEDS ORDERED: ONDANSETRON 4 MG/2 ML VIAL ONE (16:24)
[2020-11-30] MEDS ORDERED: NA CHLORIDE 0.9% 500 ML ONE (17:27)
[2020-11-30] MEDS ORDERED: NA CHLORIDE 0.9% 250 ML ONE (17:27)
[2020-11-30] MEDS ORDERED: FUROSEMIDE 40 MG/4 ML VIAL ONE (20:50)
[2020-11-30] MEDS ORDERED: NA CHLORIDE 0.9% 50 ML ONE (21:16)
[2020-12-01 03:18] LABS: Absolute Lymphocytes (CBC) 1.6 K/uL (0.7-4.9); Basophils % 1.1 % (0-1.3); Lymphocytes % 14.6 % (15.3-44.8); MPV 7.9 fL (7.6-11.3); RBC Red Blood Cell Count 1.98 M/uL (4.33-5.43)
[2020-12-01 03:28] LABS: Hematocrit 16.6 % (39.6-49.0)
[2020-12-01 09:12] VITALS: TEMP 98.6
[2020-12-01 09:30] VITALS: BP 115/70; O2SAT 98
--- NOTE | 2020-12-01 15:29 | EKG ---
Test Date: 2020-11-30 Test Time: 14:38:56 Futures Trader: [place] MEASUREMENT RESULTS: Intervals: Rate: 71 HI: 142 QRSD: 100 QT: 434 QTc: 471 [place]: P: 72 HI: 142 QRS: -1 T: 52 INTERPRETIVE STATEMENTS: Normal sinus rhythm Nonspecific ST and T wave abnormality Prolonged QT Abnormal ECG Compared to ECG 11/27/2020 21:25:28 ST (T wave) deviation now present Prolonged QT interval now present Electronically Signed On 12-01-20 15:26:34 MANAGER PART by Rj Glover
--- NOTE | 2020-12-01 20:15 | CON ---
Date of Consultation: 11/30/2020 Chief Complaint: End-stage renal disease, on dialysis; generalized weakness; borderline hypotension. History Of Present Illness: The patient was sent to the emergency room from dialysis and the patient was complaining of some generalized weakness. He denies chest pain. The patient has history of non compliance. Previously, he refused to evaluated for COVID infection. The patient was brought to the emergency room by ambulance. The patient was found to have elevated troponin level and is undergoing workup for non-ST elevation m yocardial infarction. He was found to have severe anemia and is to have blood transfusion. The brianne ent denies melena or hematemesis. He has multiple medical problems including [id number]-bwxmthhvq diabetes mellitus, end-stage renal d isease, hypertension, hypertensive heart and kidney disease, coronary artery disease, hyperlipidemia, anemia, CKD, and renal osteodystrophy. Past Surgical History: Dialysis access procedure. Social History: The patient denies tobacco. Denies illicit drugs or alcohol. Review of Systems: General: Complaining of generalized weakness. Denies syncope. Eyes: Denies vision changes. Ears, Nose, Mouth, and Throat: Denies sore throat or earache. Respiratory: He has shortness of breath with activities. Denies PND or orthopnea. Denies wheezing or hemoptysis. GI: Denies nausea, vomiting, melena, or hematemesis. : Denies dysuria or hematuria. Musculoskeletal: Denies muscle aches. Denies gout or joint swelling. Neurological: Denies tremor or seizures. Physical Examination: GENERAL: PO2 96%, respiratory rate 17, temperature 97.8, blood pressure 132/70, heart rate 72. Eyes: Anicteric sclerae. EOMI. Ears, Nose, Mouth, and Throat: Oral mucosa moist. No pallor. Neck: Supple. No bruits. Lungs: Diminished breath sounds at bases. Heart: S1, S2. No pericardial friction rub. Abdomen: Soft, benign, nontender. No rebound. No guarding. Extremities: Slight edema in both ankles. No cellulitis. No erythema. Neurological: Moving extremities. Cranial nerves intact. Psychiatric: Alert and oriented x3. Normal affect. Impression And Plan: 1.End-stage renal disease. The patient underwent dialysis today, was sent from dialysis center to [facility] emergency room for evaluation. Blood work showed severe anemia, hemoglobin of 4.3 to 5.5. The pa jd needs urgent workup for GI bleeding and blood transfusion was ordered with 2 units of packed re d blood cells emergently. 2.The patient was found to have borderline hypokalemia. Potassium was 3.2. I recommend to re-evalu ate the patient, underwent dialysis today, and may need potassium replacement if there is persistent hypokalemia. 3.Acute coronary syndrome. Troponin level is 6.15. 4.The patient has congestive heart failure with diastolic dysfunction. BNP is severely elevated up to 43,920. The patient may need additional dialysis when he stabilized with anemia treatment and has workup done for acute coronary syndrome. Medication may need to be started for acute coronary syndr ome. At this point, the patient need to be emergently rule out for GI bleeding. I recommended to ch isidra for retroperitoneal bleeding and check coagulation studies. I discussed case with ER provider, Yaneli gonzales. UMBERTO/BENY Voice ID: [id number] Report ID: [id number]
== END 2020-12-01 08:53 ==
LOC: ER 13:34
PROC: 30233N1 Transfusion of Nonautologous Red Blood Cells into Peripheral Vein, Percutaneous Approach (ICD-10-PCS; principal; 2020-12-01)
DX: I21.4 Non-ST elevation (NSTEMI) myocardial infarction (principal); E11.22 Type 2 diabetes mellitus with diabetic chronic kidney disease; I13.2 Hypertensive heart and chronic kidney disease with heart failure and with stage 5 chronic kidney disease, or end stage renal disease; I50.30 Unspecified diastolic (congestive) heart failure; N18.6 End stage renal disease; D63.1 Anemia in chronic kidney disease; K92.2 Gastrointestinal hemorrhage, unspecified; Z99.2 Dependence on renal dialysis; Z20.828 Contact with and (suspected) exposure to other viral communicable diseases
CPT/HCPCS: 96365; 93005; 85025 ×2; 80048; 36415; 86900; 83735; 86850; 85610; 86901; 80076; 82272; 84484 ×2; 83880; 71045; 96375; 99285; 96366; 36430; U0003; J1940; C9113 ×2; P9016 ×2; J7050; J7040; J2405

== ENCOUNTER 2023-03-27 14:26 | Emergency (ER) | payer OTHER ==
--- OUTSIDE RECORDS SUMMARY | 2023-03-27 14:38 | XMS REPORT | Continuity of Care Document ---
:1980 Author Organization [facility] t Address [address] [facility] [address] [place] [address] Care Team Providers Name Role Phone Van Dunlapargelia Beauchamp Primary Care Physician Donavan Dunlap Attending Clinician Unavailable Jose Alvarez Attending Clinician Unavailable Radha Garcia MA Attending Clinician Unavailable Doctor Unassigned, [place] Attending Clinician Unavailable Zoraida Loya Attending Clinician Tamiko Caldwell MD, Duane Attending Clinician Ricco Cooper DO Attending Clinician Yisel FERRIS, Mehran Attending Clinician Jonn Geronimo MD Attending Clinician Purnima Gibbs MD Attending Clinician Ney Burns MD Attending Clinician NEY BURNS Attending Clinician Unavailable Tanvir Vega MD Attending Clinician Nora FERRIS, Mu Garcia Attending Clinician Brigid Julian MD Attending Clinician Jose Alvarez Admitting Clinician Unavailable Purnima Gibbs MD Admitting Clinician PURNIMA GIBBS Admitting Clinician Unavailable Payers Payer Name Policy Type Policy Number Effective Date Expiration Date S ource Problems Condition Condition Condition Status Onset Resolution Last Treating Co mments Source Name Details Category Date Date Treatment Clinician Date Chest Chest Disease Active Univers pain, pain, 6-13 ity of [place]spec[place] d type d type 00 [facility] Gastrointe Gastrointe Disease Active U nivers stinal stinal 6-11 it[place] of hemorrhage [place] , , 00 Medical unspecifie unspecifie Br anch d d gastrointe gastrointe stinal stinal hemorrhage hemorrhage type type Elevated Elevated Disease Active Overview: Un inge troponin troponin 6-11 Formattin ity of 00:00: g of this [place] 00 note Medical might be Branch different from the original. 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 Unive rs chest pain chest pain 0-22 it y of 00:00: [place] 00 Medical Branch ESRD (end ESRD (end Disease Active 2018-11 Uni vers stage stage 0-21 ity of renal renal 00:00: [place] disease) disease) 00 Medica l on on Branch dialysis dialysis [id number] residential Problem Com mon (current) Spirit use of - [facility] insulin [facility] [id number] Dependence Problem Co mmon on renal Spirit dialysis - [facility] [id number] Atrial Problem Common fibrillati Spirit on, - [facility] unspecifie [facility] [id number] HTN, goal Problem Comm on below Spirit 130/80 - [facility] [id number] End stage Problem Comm on renal Spirit disease [facility] [id number] Chronic Problem Commo n pain Spirit syndrome - [facility] [id number] Anemia of Problem Com mon chronic Spirit disease [facility] [id number] Tobacco Problem Commo n use Spirit disorder - [facility] [id number] Type 2 Problem Common diabetes Spirit mellitus - [facility] with [facility] disease [id number] Anemia in Problem Com mon chronic Spirit kidney - [facility] disease [facility] [id number] Mixed Problem Common hyperlipid Spirit emia - [facility] [id number] Anemia, Problem Commo n chronic Spirit disease [facility] [id number] Erectile Problem Comm on dysfunctio Spirit n, - [facility] unspecifie [facility] erectile [facility] dysfunctio Medica l n [facility] [id number] Other Problem Common obesity Spirit due to - [facility] excess [facility] [id number] Body mass Problem Com mon index [facility] [BMI] [facility] 30.0-30.9[facility] Allergies, Adverse Reactions, Alerts Allergy Allergy Status Severity Reaction(s) Onset Inactive Treating Comm ents Source Name Type Date Date Clinician No Known DA Active U [facility] Drug 12-01 Allergie 00:00: s 00 NO KNOWN Drug Active [facility] ALLERGIE Class ity of [facility] Social History Social Habit Start Date Stop Date Quantity Comments Source History of Current Smoker Common Spi rit - Tobacco Use [facility] Alcohol intake 2022-05-13 2022-05-13 0 /d University of 00:00:00 00:00:00 [facility] Exposure to 2022-04-29 2022-05-09 Not sure [facility] SARS-CoV-2 00:00:00 22:59:00 [facility] (event) [place] Tobacco use and 2022-05-09 2022-05-09 Smokeless tobacco Un iversity of exposure 00:00:00 00:00:00 non-user [facility] Education 2022-05-09 2022-05-09 13 [facility] 00:00:00 00:00:00 [facility] Tobacco Comment 2022-05-09 2022-05-09 1 1/2 pack per Unive rsity of 00:00:00 00:00:00 day [facility] Sex Assigned At [birth year] [facility] 00:00:00 00:00:00 Medical Center Smoking Status Start Date Stop Date Source Current Smoker 2022-10-30 00:00:00 Common Spiri t - [facility] Former smoker 2017-01-26 00:00:00 2017-01-26 00:00:00 [facility] Medications Ordered Filled Start Stop Current Ordering Indication Dosage Frequency Signature Comments Components Source Medication Medication Date Date Medication? Clinician (SIG) Name Name Levemir Levemir No QD Levemir FlexTouch FlexTouch 9-30 FlexTouch 100 UNIT/ML 100 UNIT/ML 00:00: 100 00 UNIT/ML Levemir Levemir No QD Levemir FlexTouch FlexTouch 9-30 FlexTouch 100 UNIT/ML 100 UNIT/ML 00:00: 100 00 UNIT/ML Levemir Levemir No QD Levemir FlexTouch FlexTouch 9-30 FlexTouch 100 UNIT/ML 100 UNIT/ML 00:00: 100 00 UNIT/ML Sildenafil Sildenafil No 1{table QD Sildenafil Citrate 100 Citrate 100 8-01 t_as_ne Citrate MG MG 00:00: eded} 100 MG 00 lidocaine Yes ONCE INTRA Un inge 1% (PF) 05-13 PROCEDURE, ity of (XYLOCAINE) 17:26: [place] injection 00 on Wed [facility] 05/13/22 at Branch 1226, Until Discontinu ed, Routine, CV Intraproce dure lidocaine 2021-0 2021- No ONCE INTRA U nivers 1% (PF) 05-13 PROCEDURE, ity o f (XYLOCAINE) 17:26: 18:08 Starting [place] injection 00 :50 on Wed05/13/22 at Branch 1226, Until Wed05/13/22 at 1308, Routine, CV Intraproce dure midazolam Yes ONCE INTRA Un inge (VERSED) 05-13 PROCEDURE, ity o f injection 17:14: [place] 56 on Wed05/13/22 at Branch 1214, Until Discontinu ed, Routine, CV Intraproce dure midazolam 2021-0 2021- No ONCE INTRA U nivers (VERSED) 05-13 PROCEDURE, ity of injection 17:14: 18:08 Starting [place] as 56 :50 on Wed05/13/22 at Branch 1214, Until Wed05/13/22 at 1308, Routine, CV Intraproce dure FENTanyl PF Yes ONCE INTRA Univers (SUBLIMAZE 05-13 PROCEDURE, ity of (PF)) 17:14: Starting [place] injection 46 on Wed05/13/22 at Branch 1214, Until Discontinu ed, Routine, CV Intraproce dure FENTanyl PF 2021- No ONCE INTRA Univers (SUBLIMAZE 05-13 PROCEDURE, it y of (PF)) 17:14: 18:08 Starting [place] injection 46 :50 on Wed05/13/22 at Branch 1214, Until Wed05/13/22 at 1308, Routine, CV Intraproce dure metoprolol 0 Yes 25mg 25 mg, Unive rs tartrate 6-15 Oral, BID, ity o f (LOPRESSOR) 01:00: First dose [place] tablet 25 00 on Wed Medical mg 05/12/22 at Branch 1999, Until Discontinu ed, Routine pantoprazol Yes 40mg 40 mg, Univ ers e - Slow IV ity of (PROTONIX) 01:00: Push, [place] injection 00 Q12H, Medical 40 mg First dose Branch on Wed05/12/22 at 1999, Until Discontinu ed metoprolol 0 Yes 25mg 25 mg, Unive rs tartrate -15 Oral, BID, ity o f (LOPRESSOR) 01:00: First dose [place] tablet 25 00 on Wed Medical mg 05/12/22 at Branch 1999, Until Discontinu ed, Routine pantoprazol 0 Yes 40mg 40 mg, Univ ers e 05-13 Slow IV ity of (PROTONIX) 01:00: Push, [place] injection 00 Q12H, Medical 40 mg First dose Branch on Wed05/12/22 at 1999, Until Discontinu ed doxycycline 2021- No 100mg 100 mg, U nivers hyclate 05-13 Oral, BID, ity o f (Vibramycin 01:00: 00:59 20 doses, [place] ) capsule 00 :00 First dose Medi ai 100 mg on Wed05/12/22 at 1999, Last dose on Wed05/22/22 at 0800, BETH
Re ason for Anti-Infec tive: Documented Infection< br>Documen corie Infection Site: Skin / Soft Tissue
Duration of Therapy: 14 days doxycycline 2021-2021- No 100mg 100 mg, U nivers hyclate 05-13-25 Oral, BID, ity o f (Vibramycin 01:00: 00:59 20 doses, [place] ) capsule 00 :00 First dose Medi ai 100 mg on Wed05/12/22 at 1999, Last dose on Wed05/22/22 at 0800, BETH
Re ason for Anti-Infec tive: Documented Infection< br>Documen corie Infection Site: Skin / Soft Tissue
Duration of Therapy: 14 days doxycycline 2021- No 100mg 100 mg, U nivers hyclate 05-13 Oral, BID, ity o f (Vibramycin 01:00: 17:46 20 doses, [place] ) capsule 00 :46 First dose Medi ai 100 mg on Wed05/12/22 at 1999, Last dose on Wed05/22/22 at 0800, BETH
Re ason for Anti-Infec tive: Documented Infection< br>Documen corie Infection Site: Skin / Soft Tissue
Duration of Therapy: 14 days metoprolol 2021- No 25mg 25 mg, Univ ers tartrate 05-13 Oral, BID, ity of (LOPRESSOR) 01:00: 17:46 First dose [place] tablet 25 00 :46 on Wed Medical mg 05/12/22 at Branch 1999, Until Discontinu ed, Routine pantoprazol 2021- No 40mg 40 mg, Uni vers e 05-13 Slow IV ity of (PROTONIX) 01:00: 17:46 Push, [place] injection 00 :46 Q12H, Medical 40 mg First dose Branch on Wed05/12/22 at 1999, Until Discontinu ed NaCl 0.9% 2021- No 500mL at 42 Unive rs (NS) IV 05-12 mL/hr, IV ity of infusion 14:45: 23:50 Infusion, [place]abe[place] as 500 mL 00 :01 CONTINUOUS Medical , Starting Branch on Wed05/12/22 at 0945, Until Wed05/12/22 at 1850, Routine
Use 60 drop tubing!!<b r>DSU Pre-op simethicone 2021- No PRN, Unive rs (GAS RELIEF 05-12 Starting ity of (SIMETHICON 14:22: 14:39 on Wed [place]abe[place] as E)) 40 00 :55 05/12/22 at Medical mg/0.6 mL 0922, Branch drops Until Wed05/12/22 at 0939, Routine, Intra-op HYDROcodone 2021-0 Yes 1{tbl} 1 tablet, Univers -acetaminop 6-13 Oral, ity of hen (NORCO 23:59: Q6HPRN, [place] 5) 5-325 mg 13 Starting Medi ai tablet 1 on Mon Branch tablet 05/11/22 at 1859, Until Discontinu ed, Routine, Pain (scale 4-6) HYDROcodone 2021-0 Yes 1{tbl} 1 tablet, Univers -acetaminop 6-13 Oral, ity of hen (NORCO 23:59: Q6HPRN, [place] 5) 5-325 mg 13 Starting Medi ai tablet 1 on Mon Branch tablet 05/11/22 at 1859, Until Discontinu ed, Routine, Pain (scale 4-6) HYDROcodone 2021-0 2021- No 1{tbl} 1 tablet, Univers -acetaminop 6-13 -16 Oral, ity of hen (NORCO 23:59: 17:46 Q6HPRN, [place]abe[place] as 5) 5-325 mg 13 :46 Starting Medi ai tablet 1 on Mon Branch tablet 05/11/22 at 1859, Until Jessica 05/14/22 at 1246, Routine, Pain (scale 4-6) dextrometho 2021-0 Yes 5mL 5 mL, Unive rs rphan-guaif - Oral, ity of enesin 15:33: Q6HPRNFreedom, [place] (ROBITUSSIN 31 Starting Medi ai DM) 10-100 on Mon Branch mg/5 mL 05/11/22 at solution 5 1033, mL Until Discontinu ed, Routine, Cough dextrometho 2021-0 Yes 5mL 5 mL, Unive rs rphan-guaif 6-13 Oral, ity of enesin 15:33: Q6HPRNFreedom, [place] (ROBITUSSIN 31 Starting Medi ai DM) 10-100 on Mon Branch mg/5 mL 05/11/22 at solution 5 1033, mL Until Discontinu ed, Routine, Cough dextrometho 2022-0 2022- No 5mL 5 mL, [facility] 05-1116 Oral, ity of enesin 15:33: 17:46 Q6HPRN, [place] (ROBITUSSIN 31 :46 Starting Medi ai DM) 10-100 on [facility] mg/5 mL 05/11/22 at solution 5 1033, mL Until Jessica 05/14/22 at 1246, Routine, Cough aspirin Yes 81mg 81 mg, Univers chewable 6-13 Oral, ity of tablet 81 14:00: DAILY, [place] mg 00 First dose Medical on [facility] 05/11/22 at 0900, Until Discontinu ed, Routine aspirin Yes 81mg 81 mg, Univers chewable 6-13 Oral, ity of tablet 81 14:00: DAILY, [place] mg 00 First dose Medical on [facility] 05/11/22 at 0900, Until Discontinu ed, Routine aspirin 2021- No 81mg 81 mg, Univers chewable 05-1116 Oral, ity of tablet 81 14:00: 17:46 DAILY, [place] mg 00 :46 First dose Medical on [facility] 05/11/22 at 0900, Until Discontinu ed, Routine nitroglycer Yes .5[in_u 0.5 Inch, Univers in (NITROL) 6-13 s] Transderma it y of 2 % 11:00: l (Apply [place] ointment 00 To Skin), Medica l 0.5 Inch Q6HHOL, Branch First dose on Wed05/11/22 at 0600, Until Discontinu ed, Routine nitroglycer Yes .5[in_u 0.5 Inch, Univers in (NITROL) 6-13 s] Transderma it y of 2 % 11:00: l (Apply [place] ointment 00 To Skin), Medica l 0.5 Inch Q6HHOL, Branch First dose on Wed05/11/22 at 0600, Until Discontinu ed, Routine nitroglycer 2021- No .5[in_u 0.5 Inch, Univers in (NITROL) 6-13 06-16 s] Transderma i ty of 2 % 11:00: 17:46 l (Apply [place] ointment 00 :46 To Skin), Medica l 0.5 Inch Q6HHOL, Branch First dose on Wed05/11/22 at 0600, Until Discontinu ed, Routine morpHINE (2 2021-0 Yes 2mg 2 mg, Slow Univers mg/mL) 05-11 IV Push, ity of injection 2 10:35: Q4HPRN, [place] as mg 33 Starting Medical on Wed Branch 05/11/22 at 0535, Until Discontinu ed, Routine, Pain (scale 7-10) morpHINE (2 0 Yes 2mg 2 mg, Slow Univers mg/mL) 05-11 IV Push, ity of injection 2 10:35: Q4HPRN, [place] as mg 33 Starting Medical on Wed [place] 05/11/22 at 0535, Until Discontinu ed, Routine, Pain (scale 7-10) morpHINE (2 2021-0 2021- No 2mg 2 mg, Slow Univers mg/mL) 05-11 06-16 IV Push, ity of injection 2 10:35: 17:46 Q4HPRN, [place] mg 33 :46 Starting Medical on Wed Branch 05/11/22 at 0535, Until Jessica 05/14/22 at 1246, Routine, Pain (scale 7-10) mupirocin 2021-0 Yes Nasal, Univer s (BACTROBAN 6-13 Q12H, For ity of NASAL OINT) 03:29: 5 days, [place]abeel as 2 % nasal 57 First dose Medi ai ointment conditiona Branc h l, Routine mupirocin 2021-0 Yes Nasal, Univer s (BACTROBAN 6-13 Q12H, For ity of NASAL OINT) 03:29: 5 days, [place]abe[place] as 2 % nasal 57 First dose Medi ai ointment conditiona Branc h l, Routine mupirocin 2021-0 2022- No Nasal, Unive rs (BACTROBAN 613 06-16 Q12H, For ity of NASAL OINT) 03:29: 17:46 5 days, [place] 2 % nasal 57 :46 First dose Medi ai ointment conditiona Branc h l, Routine atorvastati 2021-0 Yes 40mg 40 mg, Univ ers n (LIPITOR) 613 Oral, QHS, it y of tablet 40 02:00: First dose [place] mg 00 on [place] [facility] 05/10/22 at [place] 2100, Until Discontinu ed, Routine atorvastati 0 Yes 40mg 40 mg, Univ ers n (LIPITOR) - Oral, QHS, it y of tablet 40 02:00: First dose [place] mg 00 on [place] [facility] 05/10/22 at [place] 2100, Until Discontinu ed, Routine atorvastati 2021- No 40mg 40 mg, Uni vers n (LIPITOR) 05-11-16 Oral, QHS, i ty of tablet 40 02:00: 17:46 First dose [place] mg 00 :46 on [place] [facility] 05/10/22 at [place] 2100, Until Discontinu ed, Routine HEPARIN 2021- No 4000U 4,000 Univers SODIUM 05-10 Units, IV ity of (PORCINE) 22:00: 22:33 Push, [place] 1,000 00 :00 ONCE, 1 Medical UNIT/ML dose, On [place] BOLUS ACS Sun ORDER SET 05/10/22 at 1700, BETH heparin Yes 3000U FOR Univers (1,000 6-12 REBOLUSING ity of unit/mL, 10 21:44: , Starting [place] mL vial) 39 on [facility] for 05/10/22 at [facility] 1644, Until Discontinu ed, Routine
Dosing based on aPPT testing parameters (refer to continuous heparin drip order).
heparin Yes 3000U FOR Univers (1,000 6-12 REBOLUSING ity of unit/mL, 10 21:44: , Starting [place] mL vial) 39 on [facility] for 05/10/22 at [facility] 1644, Until Discontinu ed, Routine
Dosing based on aPPT testing parameters (refer to continuous heparin drip order).
heparin 2021- No 3000U FOR Univers (1,000 05-10 REBOLUSING ity of unit/mL, 10 21:44: 17:46 , Starting [place] mL vial) 39 :46 on [facility] [facility] for 05/10/22 at [facility] 1644, Until Jessica 05/14/22 at 1246, Routine
Dosing based on aPPT testing parameters (refer to continuous heparin drip order).
heparin 2021- No 1000U/h 1,000 Unive rs 25,000 05-10 Units/hr ity of Units/250 21:44: 15:51 (10 [place] mL 39 :26 mL/hr), IV Medical (Premixed Infusion, Branc h Bag) in TITRATE, 0.45 % NS Parameters in Admin. Instr., Starting on 05/10/22 at 1644
CA UTION - If LMWH given in ER, AVOID bolus and start next dose/drip 12 hrs after ER dosage.&nb sp; M ust program rate using programmab le infusion pump.&nbsp ; Coni ck with the ordering provider first prior to any administra tion should the patient be on existing/a dditional anticoagul ant therapy.&n bsp; Range, Dosing and Testing&nb sp; - aPTT < 40: & nbsp;Bolus 3000 units, increase rate 100 units/hr.& nbsp;- aPTT 40-49:&nbs p; In crease rate 50 units/hr. - aPTT 50-70:&nbs p; NO CHANGE.&nb sp;- aPTT 71-85:&nbs p; De crease rate 50 units/hr.& nbsp;- aPTT 86-100:&nb sp; H old 30 minutes, decrease rate 100 units/hr.& nbsp;- aPTT 101-150:&n bsp; Hold 60 minutes, decrease rate 150 units/hr.& nbsp;- aPTT > 150: Hold 60 minutes, decrease rate 300 units/hr.& nbsp;&nbsp ;Check aPTT 6 hours after initiation , then Q6H after every change, aPTT Q12H once therapeuti c levels are reached.&n bsp; DO NOT ADJUST INITIAL BOLUS OR INITIAL INFUSION RATE.
sulfur 2021- No [id number] 5mL 5 mL, Unive rs hexafluorid 05-10 Intravenou i ty of e microsphr 20:30: 19:30 s, ONCE, 1 [place] (LUMASON) 00 :00 dose, On Medica l injection 5 [place] Branch mL 05/10/22 at 1530, Routine
hourly team members approving Restricted medication : FLAKITA HAYES aspirin 2021- No 325mg 325 mg, Unive rs tablet 325 05-10 Oral, ity of mg 17:30: 16:48 ONCE, 1 [place] 00 :00 dose, On Medical [facility] 05/10/22 at 1230, Routine Sliding Yes Subcutaneo Univ ers Scale 6-12 us, TID ity of Insulin - 17:00: MEALS+HS, [place]abeel as Lispro 00 First dose Medical (HumaLOG) + on [facility] 05/10/22 at Testing 1200, Until Discontinu ed, Routine Sliding Yes Subcutaneo Univ ers Scale 6-12 us, TID ity of Insulin - 17:00: MEALS+HS, [place] as Lispro 00 First dose Medical (HumaLOG) + on [facility] 05/10/22 at Testing 1200, Until Discontinu ed, Routine Sliding 2021- No Subcutaneo Uni vers Scale 05-10 06-16 us, TID ity of Insulin - 17:00: 17:46 MEALS+HS, [place] Lispro 00 :46 First dose Medical (HumaLOG) + on [facility] 05/10/22 at Testing 1200, Until Discontinu ed, Routine dextrose Yes 250mL 250 mL, IV Un inge 10% (D10W) 05-10 Infusion, ity of bolus 13:29: PRN - SEE [place] infusion 29 INSTRUCTIO Medic al 250 mL NS, Branch hypoglycem ia, Starting on [place] 05/10/22 at 0829
De xtrose 10% 250 mL bag contains:& nbsp;10 gm = 100 mL 20 gm = 200 mL 25 gm = 250 mL (whole bag) The maximum rate at which dextrose can be infused without producing glycosuria is 0.5 g/kg/hour. &nbs p;BUD: If wrapper is open bag is good for 30 days at room temperatur e. <b r> dextrose 2021-0 Yes 250mL 250 mL, IV Un inge 10% (D10W) 612 Infusion, ity of bolus 13:29: PRN - SEE [place] infusion 29 INSTRUCTIO Medic al 250 mL NS, Branch hypoglycem ia, Starting on [place] 05/10/22 at 0829
De xtrose 10% 250 mL bag contains:& nbsp;10 gm = 100 mL 20 gm = 200 mL 25 gm = 250 mL (whole bag) The maximum rate at which dextrose can be infused without producing glycosuria is 0.5 g/kg/hour. &nbs p;BUD: If wrapper is open bag is good for 30 days at room temperatur e. <b r> dextrose 2021-0 202- No 250mL 250 mL, IV U nivers 10% (D10W) 12 06-16 Infusion, ity of bolus 13:29: 17:46 PRN - SEE [place] infusion 29 :46 INSTRUCTIO Medic al 250 mL NS, Branch hypoglycem ia, Starting on [place] 05/10/22 at 0829
De xtrose 10% 250 mL bag contains:& nbsp;10 gm = 100 mL 20 gm = 200 mL 25 gm = 250 mL (whole bag) The maximum rate at which dextrose can be infused without producing glycosuria is 0.5 g/kg/hour. &nbs p;BUD: If wrapper is open bag is good for 30 days at room temperatur e. <b r> glucagon 2021-0 Yes 1mg 1 mg, Univers (GLUCAGEN 6-12 Intramuscu ity of DIAGNOSTIC 13:29: lar, PRN, [place] KIT) 26 Starting Medical injection 1 on Sun Branch mg 05/10/22 at 0829, Until Discontinu ed, BETH, Blood Glucose < or = 70 mg/dL and patient is unable to swallow or has mental changes. glucagon 0 Yes 1mg 1 mg, Univers (GLUCAGEN 6-12 Intramuscu ity of DIAGNOSTIC 13:29: [place], PRN, [place] KIT) 26 Starting Medical injection 1 on Sun Branch mg 05/10/22 at 0829, Until Discontinu ed, BETH, Blood Glucose < or = 70 mg/dL and patient is unable to swallow or has mental changes. glucagon 2021-0 2022- No 1mg 1 mg, Univers (GLUCAGEN 05-10-16 Intramuscu ity of DIAGNOSTIC 13:29: 17:46 lar, PRN, [place] KIT) 26 :46 Starting Medical injection 1 on Sun Branch mg 05/10/22 at 0829, Until Jessica 05/14/22 at 1246, BETH, Blood Glucose < or = 70 mg/dL and patient is unable to swallow or has mental changes. ondansetron 2021-0 Yes 4mg 4 mg, Slow Univers (ZOFRAN 6-12 IV Push, ity of (PF)) 04:00: Q6HPRN, [place] injection 4 20 Starting Medi ai mg on Sat Branch 05/09/22 at 2300, Until Discontinu ed, Routine, Nausea and Vomiting (N/V) ondansetron 2021-0 Yes 4mg 4 mg, Slow Univers (ZOFRAN 6-12 IV Push, ity of (PF)) 04:00: Q6HPRN, [place] injection 4 20 Starting Medi ai mg on Sat Branch 05/09/22 at 2300, Until Discontinu ed, Routine, Nausea and Vomiting (N/V) ondansetron 2022-0 2022- No 4mg 4 mg, Slow Univers (ZOFRAN 05-1016 IV Push, ity of (PF)) 04:00: 17:46 Q6HPRN, [place] injection 4 20 :46 Starting Medi ai mg on Sat Branch 05/09/22 at 2300, Until Jessica 05/14/22 at 1246, Routine, Nausea and Vomiting (N/V) acetaminoph 2-0 Yes 650mg 650 mg, Un inge en 12 Oral, ity of (TYLENOL) 04:00: Q6Nery FOX tablet 650 13 Starting Medic al mg on Sat Branch 05/09/22 at 2300, Until Discontinu ed, Routine, Pain (scale 1-3) acetaminoph 2022-0 Yes 650mg 650 mg, Un inge en 05-10 Oral, ity of (TYLENOL) 04:00: Q6HPRN, [place] tablet 650 13 Starting Medic al mg on Sat Branch 05/09/22 at 2300, Until Discontinu ed, Routine, Pain (scale 1-3) acetaminoph 2021- No 650mg 650 mg, U nivers en 05-10 Oral, ity of (TYLENOL) 04:00: 17:46 Q6HPRN, [place] tablet 650 13 :46 Starting Medic al mg on Sat Branch 05/09/22 at 2300, Until Jessica 05/14/22 at 1246, Routine, Pain (scale 1-3) pantoprazol 2021- No 8mg/h 8 mg/hr U nivers e 05-1014 (50 ity of (PROTONIX) 00:45: 17:23 mL/hr), IV [place] 80 mg in 00 :40 Infusion, Medica l NaCl 0.9% CONTINUOUS Bran ch (NS) 500 mL , Starting infusion on 05/09/22 at 1945 pantoprazol 2021- No 80mg 80 mg, IV Univers e 05-10 Push, ity of (PROTONIX) 00:45: 00:47 ONCE, 1 [place] as 80 mg in 00 :00 dose, On Medical NaCl 0.9% [facility] Branch (NS) 20 mL 05/09/22 at syringe 1945, Administer over 2 Minutes, 20 mL No known No Univers medications -11 ity of 17:24: [address] No known No Univers medications - ity of 17:24: [address] No known 0 No No known Unive rs medications -11 medication it y of 17:24: s [address] No known 0 No Univers medications -11 ity of 17:24: [address] calcium Yes 3335mg Take 3,[address] acetate,mica 6-16 mg by [facility] sphat bind, 15:03: mouth 3 Med ical (PHOSLO) 13 (three) Center 667 mg times capsule daily with meals 4 tabs with snacks . pantoprazol 2021-0 Yes 40mg QD Take [address] [facility] e 6-16 by mouth [facility] (PROTONIX) 15:03: daily. Medic al 40 MG 13 Center tablet cloNIDine Yes .3mg Q.[id number] Take 0.[address] [facility] HCL 6-16 [id number] mg by [facility] (CATAPRES) 15:03: 3D mouth 3 Medi ai 0.3 MG 13 (three) Center tablet times daily. insulin Yes Inject [facility] regular 6-16 subcutaneo [facility] (HumuLIN 15:00: usly Use Medic al R,NovoLIN 04 as Center R) 100 directed . unit/mL injection apixaban Yes 5mg Q.5D Take [address] (ELIQUIS) 5 6-16 by mouth 2 Jennifer kes mg Tab 15:00: (two) Medical tablet 04 times Center daily. Pen [place] Pen [place] 2018-11 No QD Pen 32G X 6 MM 32G X 6 MM 2-24 [place] 00:00: 32G X 6 MM 00 No known 2018-11 No Univers medications 0-21 ity of 12:59: [place] [id number] Medical Branch cinacalcet Yes 30mg Take 30 mg U nivers (SENSIPAR) 4-25 by mouth ity o f 30 mg 15:37: daily. [place] [facility] 10 Medical Branch glyBURIDE 5 Yes 5mg Take 5 mg U nivers mg tablet 4-25 by mouth ity of 15:37: daily with [place] [id number] breakfast. Medical Branch hydralAZINE Yes 50mg Take 50 mg Univers 50 mg 4-25 by mouth 3 ity of tablet 15:37: (three) [place] 10 times Medical daily. Branch LACTOSE-RED Yes 237mL Take 237 U nivers UCED FOOD 4-25 mL by ity of (ENSURE 15:37: mouth 3 [place] COMPACT 10 (three) Medical ORAL) times Branch daily with meals. cloniDINE Yes .2mg Take 0.2 Univ ers 0.2 mg 4-25 mg by ity of tablet 15:37: mouth 2 [place] 10 (two) Medical times Branch daily. GLIPIZIDE Yes Take by Unive rs ORAL 4-25 mouth ity of 15:37: daily. [place] [address] Medical Branch metoprolol Yes 50mg Take 50 mg U nivers succinate 4-25 by mouth 2 ity of XL 50 mg 24 15:37: (two) [place] hr tablet 10 times Medical daily. Branch cinacalcet 2017-0 Yes 30mg Take 30 mg U nivers (SENSIPAR) 4-25 by mouth ity o f 30 mg 15:37: daily. [place] tablet 10 Medical Branch glyBURIDE 5 2017-0 Yes 5mg Take 5 mg U nivers mg tablet 4-25 by mouth ity of 15:37: daily with [place] 10 breakfast. Medical Branch hydralAZINE 2017-0 Yes 50mg Take 50 mg Univers 50 mg 4-25 by mouth 3 ity of tablet 15:37: (three) [place] 10 times Medical daily. Branch LACTOSE-RED 20170 Yes 237mL Take 237 U nivers UCED FOOD 4-25 mL by ity of (ENSURE 15:37: mouth 3 [place] COMPACT 10 (three) Medical ORAL) times Branch daily with meals. cloniDINE 2017-0 Yes .2mg Take 0.2 Univ ers 0.2 mg 4-25 mg by ity of tablet 15:37: mouth 2 [place] 10 (two) Medical times Branch daily. GLIPIZIDE 2017-0 Yes Take by Unive rs ORAL 4-25 mouth ity of 15:37: daily. [place] [address] Medical Branch metoprolol 2017-0 Yes 50mg Take 50 mg U nivers succinate 4-25 by mouth 2 ity of XL 50 mg 24 15:37: (two) [place] hr tablet 10 times Medical daily. Branch cinacalcet 2017-0 Yes 30mg Take 30 mg U nivers (SENSIPAR) 4-25 by mouth ity o f 30 mg 15:37: daily. [place] tablet 10 Medical Branch glyBURIDE 5 2017-0 Yes 5mg Take 5 mg U nivers mg tablet 4-25 by mouth ity of 15:37: daily with [place] 10 breakfast. Medical Branch hydralAZINE 2017-0 Yes 50mg Take 50 mg Univers 50 mg 4-25 by mouth 3 ity of tablet 15:37: (three) [place] 10 times Medical daily. Branch LACTOSE-RED 2017-0 Yes 237mL Take 237 U nivers UCED FOOD 4-25 mL by ity of (ENSURE 15:37: mouth 3 [place] COMPACT 10 (three) Medical ORAL) times Branch daily with meals. cloniDINE 2017-0 Yes .2mg Take 0.2 Univ ers 0.2 mg 4-25 mg by ity of tablet 15:37: mouth 2 [place] [address] (two) Medical times Branch daily. GLIPIZIDE 2017-0 Yes Take by Unive rs ORAL 4-25 mouth ity of 15:37: daily. [place] [address] Medical Branch metoprolol 2017-0 Yes 50mg Take 50 mg U nivers succinate 4-25 by mouth 2 ity of XL 50 mg 24 15:37: (two) [place] [facility] tablet 10 times Medical daily. Branch Tresiba Tresiba Yes [place] inject 18 Co mmon FlexTouch FlexTouch [place] units [facility] cloNIDine cloNIDine No 1{table QD cloNIDine HCl 0.1 MG HCl 0.1 MG t} HCl 0.1 MG Atorvastati Atorvastati No 1{table QD Atorvastat n Calcium n Calcium t} in Calcium 10 MG 10 MG 10 MG Sildenafil Sildenafil No 1{table QD Sildenafil Citrate 100 Citrate 100 t_as_ne Citrate MG MG eded} 100 MG Eliquis 5 Eliquis 5 No 1{table QD Eliquis 5 MG MG t} MG Sotalol HCl Sotalol HCl No 1{table BID Sotalol 80 MG 80 MG t} HCl 80 MG Hydrocodone Hydrocodone No 1{capsu BID Hydrocodon Bitartrate Bitartrate le} e 10 MG 10 MG Bitartrate 10 MG Calcium Calcium No 2{capsu TID Calcium Acetate 667 Acetate 667 les_wit Acetate MG MG h_meals 667 MG } Tresiba Tresiba No Tresiba FlexTouch FlexTouch FlexTouch 100 UNIT/ML 100 UNIT/ML 100 UNIT/ML cloNIDine cloNIDine No 1{table QD cloNIDine HCl 0.1 MG HCl 0.1 MG t} HCl 0.1 MG Eliquis 5 Eliquis 5 No 1{table QD Eliquis 5 MG MG t} MG Sildenafil Sildenafil No 1{table QD Sildenafil Citrate 100 Citrate 100 t_as_ne Citrate MG MG eded} 100 MG Calcium Calcium No 2{capsu TID Calcium Acetate 667 Acetate 667 les_wit Acetate MG MG h_meals 667 MG } Tresiba Tresiba No Tresiba FlexTouch FlexTouch FlexTouch 100 UNIT/ML 100 UNIT/ML 100 UNIT/ML Sotalol HCl Sotalol HCl No 1{table BID Sotalol 80 MG 80 MG t} HCl 80 MG Hydrocodone Hydrocodone No 1{capsu BID Hydrocodon Bitartrate Bitartrate le} e 10 MG 10 MG Bitartrate 10 MG Atorvastati Atorvastati No 1{table QD Atorvastat n Calcium n Calcium t} in Calcium 10 MG 10 MG 10 MG Hydrocodone Hydrocodone No 1{capsu BID Hydrocodon Bitartrate Bitartrate le} e 10 MG 10 MG Bitartrate 10 MG Atorvastati Atorvastati No 1{table QD Atorvastat n Calcium n Calcium t} in Calcium 10 MG 10 MG 10 MG Tresiba Tresiba No Tresiba FlexTouch FlexTouch FlexTouch 100 UNIT/ML 100 UNIT/ML 100 UNIT/ML Calcium Calcium No 2{capsu TID Calcium Acetate 667 Acetate 667 les_wit Acetate MG MG h_meals 667 MG } Sildenafil Sildenafil No 1{table QD Sildenafil Citrate 100 Citrate 100 t_as_ne Citrate MG MG eded} 100 MG cloNIDine cloNIDine No 1{table QD cloNIDine HCl 0.1 MG HCl 0.1 MG t} HCl 0.1 MG Sotalol HCl Sotalol HCl No 1{table BID Sotalol 80 MG 80 MG t} HCl 80 MG Eliquis 5 Eliquis 5 No 1{table QD Eliquis 5 MG MG t} MG cloNIDine cloNIDine No 1{table QD cloNIDine HCl 0.1 MG HCl 0.1 MG t} HCl 0.1 MG Eliquis 5 Eliquis 5 No 1{table QD Eliquis 5 MG MG t} MG Sildenafil Sildenafil No 1{table QD Sildenafil Citrate 100 Citrate 100 t_as_ne Citrate MG MG eded} 100 MG Calcium Calcium No 2{capsu TID Calcium Acetate 667 Acetate 667 les_wit Acetate MG MG h_meals 667 MG } Tresiba Tresiba No Tresiba FlexTouch FlexTouch FlexTouch 100 UNIT/ML 100 UNIT/ML 100 UNIT/ML Sotalol HCl Sotalol HCl No 1{table BID Sotalol 80 MG 80 MG t} HCl 80 MG Hydrocodone Hydrocodone No 1{capsu BID Hydrocodon Bitartrate Bitartrate le} e 10 MG 10 MG Bitartrate 10 MG Atorvastati Atorvastati No 1{table QD Atorvastat n Calcium n Calcium t} in Calcium 10 MG 10 MG 10 MG Losartan Losartan No 1{table QD Losartan Potassium Potassium t} Potassium 100 MG 100 MG 100 MG Eliquis 5 Eliquis 5 No 1{table QD Eliquis 5 MG MG t} MG Tresiba Tresiba No Tresiba FlexTouch FlexTouch FlexTouch 100 UNIT/ML 100 UNIT/ML 100 UNIT/ML Furosemide Furosemide No 1{table BID Furosemide 80 MG 80 MG t} 80 MG Ranitidine Ranitidine No 1{capsu Ranitidine HCl 150 MG HCl 150 MG le} HCl 150 MG Atorvastati Atorvastati No 1{table QD Atorvastat n Calcium n Calcium t} in Calcium 10 MG 10 MG 10 MG Carisoprodo Carisoprodo No 1{table Carisoprod l 250 MG l 250 MG t_as_ne ol 250 MG eded} cloNIDine cloNIDine No 1{table QD cloNIDine HCl 0.1 MG HCl 0.1 MG t} HCl 0.1 MG Hydrocodone Hydrocodone No 1{capsu BID Hydrocodon Bitartrate Bitartrate le} e 10 MG 10 MG Bitartrate 10 MG Nortriptyli Nortriptyli No 1{capsu QD Nortriptyl ne HCl 25 ne HCl 25 le} ine HCl 25 MG MG MG Calcium Calcium No 2{capsu TID Calcium Acetate 667 Acetate 667 les_wit Acetate MG MG h_meals 667 MG } Sotalol HCl Sotalol HCl No 1{table BID Sotalol 80 MG 80 MG t} HCl 80 MG Gabapentin Gabapentin No 1{capsu QD Gabapentin 300 MG 300 MG le} 300 MG Eliquis 5 Eliquis 5 No 1{table QD Eliquis 5 MG MG t} MG Atorvastati Atorvastati No 1{table QD Atorvastat n Calcium n Calcium t} in Calcium 10 MG 10 MG 10 MG cloNIDine cloNIDine No 1{table QD cloNIDine HCl 0.1 MG HCl 0.1 MG t} HCl 0.1 MG Sotalol HCl Sotalol HCl No 1{table BID Sotalol 80 MG 80 MG t} HCl 80 MG Calcium Calcium No 2{capsu TID Calcium Acetate 667 Acetate 667 les_wit Acetate MG MG h_meals 667 MG } Tresiba Tresiba No Tresiba FlexTouch FlexTouch FlexTouch 100 UNIT/ML 100 UNIT/ML 100 UNIT/ML Hydrocodone Hydrocodone No 1{capsu BID Hydrocodon Bitartrate Bitartrate le} e 10 MG 10 MG Bitartrate 10 MG No known No Univers medications [facility] Vital Signs Vital Name Observation Time Observation Value Comments Source height 2022-08-05 75 [in_i] [facility] 13:30:00 [facility] weight 2022-08-05 230 [lb_av] [facility] - 13:30:00 [facility] temperature 2022-08-05 97.6 [degF] [facility] - 13:30:00 [facility] bmi 2022-08-05 28.74 kg/m2 [facility] - 13:30:00 [facility] oximetry 2022-08-05 100 % [facility] - 13:30:00 [facility] respiratory rate 2022-08-05 18 /min [facility] 13[facility]30[facility] blood pressure 2022-08-05 131 mm[Hg] [facility] - systolic 13:30:00 [facility] blood pressure 2022-08-05 74 mm[Hg] [facility] - diastolic 13:30:00 [facility] blood pressure 2022-06-29 132 mm[Hg] [facility] - systolic 15:10:00 [facility] blood pressure 2022-06-29 79 mm[Hg] [facility] - diastolic 15:10:00 [facility] height 2022-06-29 75 [in_i] [facility] - 15:10:00 [facility] weight 2022-06-29 243.7 [lb_av] [facility] - 15:10:00 [facility] temperature 2022-06-29 98.4 [degF] [facility] - 15:10:00 [facility] bmi 2022-06-29 30.46 kg/m2 [facility] - 15:10:00 [facility] oximetry 2022-06-29 98 % [facility] - 15:10:00 [facility] respiratory rate 2022-06-29 18 /min [facility] - 15:10:00 [facility] Systolic blood 2022-05-14 144 mm[Hg] University of pressure 13:00:00 [place] [facility] Diastolic blood 2022-05-14 104 mm[Hg] University o f pressure 13:00:00 [place] [facility] Heart rate 2022-05-14 82 /min University of 13:00:00 [place] [facility] Body temperature 2022-05-14 36.33 Alysia University of 13:00:00 [place] [facility] Respiratory rate 2022-05-14 37 /min University of 13:00:00 [facility] Branch Oxygen saturation 2022-05-14 99 /min University of in Arterial blood 13:00:00 [facility] by Pulse oximetry Branch Body weight 2022-05-14 107.5 kg [facility] University of 01:06:00 [facility]/ [facility] patient's Branch bedscale BMI 2022-05-14 29.62 kg/m2 University of 01:06:00 [facility] Branch Body height 2022-05-10 190.5 cm University of 04:06:00 [facility] Branch Systolic blood 2022-05-13 162 mm[Hg] University of pressure 17:03:40 [facility] Branch Diastolic blood 2022-05-13 94 mm[Hg] University o f pressure 17:03:40 [facility] Branch Respiratory rate 2022-05-13 18 /min University of 17:03:40 [facility] Branch Oxygen saturation 2022-05-13 100 /min University of in Arterial blood 17:03:40 [facility] by Pulse oximetry Branch Body temperature 2022-05-13 36.89 Alysia University of 17:00:00 [facility] Branch Heart rate 2022-05-13 78 /min University of 09:00:00 [place] [facility] Body weight 2022-05-11 113.4 kg University of 23:45:00 [facility] Branch BMI 2022-05-11 29.62 kg/m2 University of 23:45:00 [place] [facility] Body height 2022-05-10 190.5 cm University of 04:06:00 [facility] Branch Body temperature 2022-05-12 36.94 Alysia University of 13:00:00 [place] [facility] Systolic blood 2022-05-12 145 mm[Hg] University of pressure 09:00:00 [place] [facility] Diastolic blood 2022-05-12 73 mm[Hg] University o f pressure 09:00:00 [facility] Heart rate 2022-05-12 84 /min [facility] 09:00:00 [facility] Respiratory rate 2022-05-12 21 /min [facility] 09:00:00 [facility] Oxygen saturation 2022-05-12 93 /min [facility] in Arterial blood 09:00:00 [facility] by Pulse oximetry [place] Body weight 2022-05-11 113.4 kg [facility] 23:45:00 [facility] BMI 2022-05-11 31.25 kg/m2 University 23:45:00 [facility] Body height 2022-05-10 190.5 cm [facility] 04:06:00 [facility] Initial DRG 2020-12-26 1.7989 Weight: 16:17:16 Working DRG 2020-12-26 1.7989 Weight: 16:17:16 Head exam ED 2020-12-26 atraumatic 16:17:16 Monitor Temp 2020-12-26 axillary Source 16:17:16 Respiratory exam 2020-12-26 normal breath 16:17:16 sounds /min 02 Sat by Pulse 2020-12-26 100 /min Oximetry 16:17:16 Body Mass Index 2020-12-26 29.8 16:17:16 Height 2020-12-26 191.00\\S\\75.20 16:17:16 Pulse Rate 2020-12-26 76 /min 16:17:16 Pulse Strength 2020-12-26 Normal /min 16:17:16 Pulse Assessment 2020-12-26 Palpation /min Method 16:17:16 Respiratory Rate 2020-12-26 12 /min 16:17:16 Respiratory Depth 2020-12-26 Normal /min 16:17:16 Respiratory Effort 2020-12-26 Spontaneous /min 16:17:16 Respiratory 2020-12-26 Normal /min Pattern 16:17:16 Temperature 2020-12-26 36.5\\S\\97.7 16:17:16 Weight 2020-12-26 352016\\S\\3837.807 16:17:16 Weight Measurement 2020-12-26 Built in Bedscale Method 16:17:16 Initial DRG 2020-12-09 1.7989 Weight: 19:00:24 Working DRG 2020-12-09 1.7989 Weight: 19:00:24 Head exam ED 2020-12-09 atraumatic 19:00:24 Monitor Temp 2020-12-09 axillary Source 19:00:24 Respiratory exam 2020-12-09 normal breath 19:00:24 sounds /min 02 Sat by Pulse 2020-12-09 100 /min Oximetry 19:00:24 Body Mass Index 2020-12-09 29.8 19:00:24 Height 2020-12-09 191.00\\S\\75.20 19:00:24 Pulse Rate 2020-12-09 76 /min 19:00:24 Pulse Strength 2020-12-09 Normal /min 19:00:24 Pulse Assessment 2020-12-09 Palpation /min Method 19:00:24 Respiratory Rate 2020-12-09 12 /min 19:00:24 Respiratory Depth 2020-12-09 Normal /min 19:00:24 Respiratory Effort 2020-12-09 Spontaneous /min 19:00:24 Respiratory 2020-12-09 Normal /min Pattern 19:00:24 Temperature 2020-12-09 36.5\\S\\97.7 19:00:24 Weight 2020-12-09 150173\\S\\3837.807 19:00:24 Weight Measurement 2020-12-09 Built in Bedscale Method 19:00:24 Monitor Temp 2020-12-05 axillary Source 16:35:28 Respiratory exam 2020-12-05 normal breath 16:35:28 sounds /min 02 Sat by Pulse 2020-12-05 100 /min Oximetry 16:35:28 Body Mass Index 2020-12-05 29.8 16:35:28 Height 2020-12-05 191.00\\S\\75.20 16:35:28 Pulse Rate 2020-12-05 76 /min 16:35:28 Pulse Strength 2020-12-05 Normal /min 16:35:28 Pulse Assessment 2020-12-05 Palpation /min Method 16:35:28 Respiratory Rate 2020-12-05 12 /min 16:35:28 Respiratory Depth 2020-12-05 Normal /min 16:35:28 Respiratory Effort 2020-12-05 Spontaneous /min 16:35:28 Respiratory 2020-12-05 Normal /min Pattern 16:35:28 Temperature 2020-12-05 36.5\\S\\97.7 16:35:28 Weight 2020-12-05 079260\\S\\3837.807 16:35:28 Weight Measurement 2020-12-05 Built in Bedscale Method 16:35:28 Initial DRG 2020-12-05 1.7989 Weight: 16:35:28 Working DRG 2020-12-05 1.7989 Weight: 16:35:28 Head exam ED 2020-12-05 atraumatic 16:35:28 Head exam ED 2020-12-03 atraumatic 21:50:51 Monitor Temp 2020-12-03 axillary Source 21:50:51 Respiratory exam 2020-12-03 normal breath 21:50:51 sounds /min 02 Sat by Pulse 2020-12-03 100 /min Oximetry 21:50:51 Body Mass Index 2020-12-03 29.8 21:50:51 Height 2020-12-03 191.00\\S\\75.20 21:50:51 Pulse Rate 2020-12-03 76 /min 21:50:51 Pulse Strength 2020-12-03 Normal /min 21:50:51 Pulse Assessment 2020-12-03 Palpation /min Method 21:50:51 Respiratory Rate 2020-12-03 12 /min 21:50:51 Respiratory Depth 2020-12-03 Normal /min 21:50:51 Respiratory Effort 2020-12-03 Spontaneous /min 21:50:51 Respiratory 2020-12-03 Normal /min Pattern 21:50:51 Temperature 2020-12-03 36.5\\S\\97.7 21:50:51 Weight 2020-12-03 407079\\S\\3837.807 21:50:51 Weight Measurement 2020-12-03 Built in Bedscale Method 21:50:51 Head exam ED 2020-12-03 atraumatic 06:17:28 Monitor Temp 2020-12-03 axillary Source 06:17:28 Respiratory exam 2020-12-03 normal breath 06:17:28 sounds /min 02 Sat by Pulse 2020-12-03 92 /min Oximetry 06:17:28 Body Mass Index 2020-12-03 29.8 06:17:28 Height 2020-12-03 191.00\\S\\75.20 06:17:28 Pulse Rate 2020-12-03 69 /min 06:17:28 Pulse Strength 2020-12-03 Normal /min 06:17:28 Respiratory Rate 2020-12-03 0 /min 06:17:28 Respiratory Depth 2020-12-03 Normal /min 06:17:28 Respiratory Effort 2020-12-03 Spontaneous /min 06:17:28 Respiratory 2020-12-03 Normal /min Pattern 06:17:28 Temperature 2020-12-03 37.1\\S\\98.8 06:17:28 Weight 2020-12-03 201609\\S\\3837.807 06:17:28 Weight Measurement 2020-12-03 Built in Bedscale Method 06:17:28 WEIGHT 2020-12-03 108.8 kg 06:00:00 Head exam ED 2020-12-02 atraumatic 14:07:55 Monitor Temp 2020-12-02 oral Source 14:07:55 Respiratory exam 2020-12-02 normal breath 14:07:55 sounds /min 02 Sat by Pulse 2020-12-02 96 /min Oximetry 14:07:55 Body Mass Index 2020-12-02 29.8 14:07:55 Height 2020-12-02 191.00\\S\\75.20 14:07:55 Pulse Rate 2020-12-02 76 /min 14:07:55 Pulse Strength 2020-12-02 Normal /min 14:07:55 Respiratory Rate 2020-12-02 11 /min 14:07:55 Respiratory Depth 2020-12-02 Normal /min 14:07:55 Respiratory Effort 2020-12-02 Spontaneous /min 14:07:55 Respiratory 2020-12-02 Normal /min Pattern 14:07:55 Temperature 2020-12-02 37.1\\S\\98.8 14:07:55 Weight 2020-12-02 017038.78\\S\\3841.7 14:07:55 5 Weight Measurement 2020-12-02 Estimated by Method 14:07:55 Patient Head exam ED 2020-12-02 atraumatic 08:38:02 Monitor Temp 2020-12-02 axillary Source 08:38:02 Respiratory exam 2020-12-02 normal breath 08:38:02 sounds /min 02 Sat by Pulse 2020-12-02 96 /min Oximetry 08:38:02 Body Mass Index 2020-12-02 29.8 08:38:02 Height 2020-12-02 191.00\\S\\75.20 08:38:02 Pulse Rate 2020-12-02 70 /min 08:38:02 Pulse Strength 2020-12-02 Normal /min 08:38:02 Respiratory Rate 2020-12-02 0 /min 08:38:02 Respiratory Depth 2020-12-02 Normal /min 08:38:02 Respiratory Effort 2020-12-02 Spontaneous /min 08:38:02 Respiratory 2020-12-02 Normal /min Pattern 08:38:02 Temperature 2020-12-02 37.0\\S\\98.6 08:38:02 Weight 2020-12-02 277105.78\\S\\3841.7 08:38:02 5 Weight Measurement 2020-12-02 Estimated by Method 08:38:02 Patient Head exam ED 2020-12-02 atraumatic 08:24:13 Monitor Temp 2020-12-02 axillary Source 08:24:13 Respiratory exam 2020-12-02 normal breath 08:24:13 sounds /min 02 Sat by Pulse 2020-12-02 96 /min Oximetry 08:24:13 Body Mass Index 2020-12-02 29.8 08:24:13 Height 2020-12-02 191.00\\S\\75.20 08:24:13 Pulse Rate 2020-12-02 70 /min 08:24:13 Pulse Strength 2020-12-02 Normal /min 08:24:13 Respiratory Rate 2020-12-02 0 /min 08:24:13 Respiratory Depth 2020-12-02 Normal /min 08:24:13 Respiratory Effort 2020-12-02 Spontaneous /min 08:24:13 Respiratory 2020-12-02 Normal /min Pattern 08:24:13 Temperature 2020-12-02 37.0\\S\\98.6 08:24:13 Weight 2020-12-02 436953.78\\S\\3841.7 08:24:13 5 Weight Measurement 2020-12-02 Estimated by Method 08:24:13 Patient WEIGHT 2020-12-02 108.57774 kg 06:00:00 Head exam ED 2020-12-01 atraumatic 19:27:51 Respiratory exam 2020-12-01 normal breath 19:27:51 sounds /min Body Mass Index 2020-12-01 29.8 19:27:51 Height 2020-12-01 191.00\\S\\75.20 19:27:51 Weight 2020-12-01 772553.78\\S\\3841.7 19:27:51 5 Weight Measurement 2020-12-01 Estimated by Method 19:27:51 Patient Head exam ED 2020-12-01 atraumatic 18:19:39 Respiratory exam 2020-12-01 normal breath 18:19:39 sounds /min Body Mass Index 2020-12-01 29.8 18:19:39 Height 2020-12-01 191.00\\S\\75.20 18:19:39 Weight 2020-12-01 212774.78\\S\\3841.7 18:19:39 5 Weight Measurement 2020-12-01 Estimated by Method 18:19:39 Patient WEIGHT 2020-12-01 108.55468 kg 12:52:00 HEIGHT 2020-12-01 191 cm 12:52:00 Body Mass Index 2020-12-01 27.1 12:37:54 Height 2020-12-01 172.72\\S\\68 12:37:54 Weight 2020-12-01 66274\\S\\2857.191 12:37:54 Body Mass Index 2020-12-01 27.1 12:11:56 Height 2020-12-01 172.72\\S\\68 12:11:56 Weight 2020-12-01 72042\\S\\2857.191 12:11:56 Body Mass Index 2020-12-01 27.1 12:09:23 Height 2020-12-01 172.72\\S\\68 12:09:23 Weight 2020-12-01 34957\\S\\2857.191 12:09:23 Body Mass Index 2020-12-01 27.1 11:29:40 Height 2020-12-01 172.72\\S\\68 11:29:40 Weight 2020-12-01 37384\\S\\2857.191 11:29:40 Body Mass Index 2020-12-01 27.1 10:59:59 Height 2020-12-01 172.72\\S\\68 10:59:59 Weight 2020-12-01 70244\\S\\2857.191 10:59:59 WEIGHT 2020-12-01 81 kg 10:59:00 HEIGHT 2020-12-01 172.72 cm 10:59:00 Procedures Procedure Date / Time Performing Source Performed Clinician AUTHORIZATION FOR RELEASE OF PHI 2022-07-24 [facility] of 05:01:00 Unassigned, No [facility] POCT GLUCOSE (AUTOMATED) 2022-05-14 Purnima Gibbs [facility] ity of 13:03:00 [facility] POCT [facility]UCOSE (AUTOMATED) [facility] 13:03:00 [facility] THYROID STIMULATING HORMONE 2022-05-14 Martha'Marilu Wagner [facility] ersity of 10:13:00 [facility] BASIC METABOLIC PANEL (NA, K, CL, 2022-05-14 [facility] CO2, GLUCOSE, BUN, CREATININE, CA) 10:13:00 [facility] THYROID STIMULATING HORMONE 2022-05-14 Martha'Bernard [facility] ersity of 10:13:00 [facility] BASIC METABOLIC PANEL (NA, K, CL, 2022-05-14 [facility] CO2, GLUCOSE, BUN, CREATININE, CA) 10:13:00 [facility] CBC WITHOUT DIFF 2022-05-14 [facility] 10:12[facility]00 [facility] GLYCOSYLATED HEMOGLOBIN (A1C) 2022-05-14 Marilu Marshall Un iversity of 10:12:00 [facility] CBC WITHOUT DIFF 2022-05-14 [facility] of 10:12:00 [facility] GLYCOSYLATED HEMOGLOBIN (A1C) 2022-05-14 Martha'Marilu Wagner Un iversity of 10:12:00 [facility] HEPATITIS B SURFACE ANTIBODY 2022-05-13 Shyam, Uni versity of 21:45:00 [facility] LOW-DENSITY LIPOPROTEIN, DIRECT 2022-05-13 [facility] 21:45:00 [facility] HEPATITIS B SURFACE ANTIBODY 2022-05-13 Shyam, Uni versity of 21:45:00 [facility] LOW-DENSITY LIPOPROTEIN, DIRECT 2022-05-13 MarthaBernard [facility] of 21:45:00 [facility] POCT GLUCOSE (AUTOMATED) 2022-05-13 Purnima Gibbs Univers ity of 21:22:00 [facility] POCT GLUCOSE (AUTOMATED) 2022-05-13 Tung, Purnima Univers ity of 21:22:00 [facility] CARDIAC CATHETERIZATION 2022-05-13 Nimcollins, Radha L Universi ty of 17:52:00 [facility] CARDIAC CATHETERIZATION 2022-05-13 Nimcollins, Radha L Universi ty of 17:52:00 [facility] CATH PROCEDURE LOG 2022-05-13 Nimcollins, Radha L University of 17:26:00 [facility] CATH PROCEDURE LOG 2022-05-13 Nimcollins, Radha L University of 17:26:00 [facility] POCT GLUCOSE (AUTOMATED) 2022-05-13 Tung, Purnima Univers ity of 16:10:00 [facility] POCT GLUCOSE (AUTOMATED) 2022-05-13 Tung, Purnima Univers ity of 16:10:00 [facility] POCT GLUCOSE (AUTOMATED) 2022-05-13 Tung, Purnima Univers ity of 16:10:00 [facility] POCT GLUCOSE (AUTOMATED) 2022-05-13 Tung, Purnima Univers ity of 12:59:00 [facility] POCT GLUCOSE (AUTOMATED) 2022-05-13 Tung, Purnima Univers ity of 12:59:00 [facility] POCT GLUCOSE (AUTOMATED) 2022-05-13 Sai, Purnima Univers ity of 12:59:00 [facility] TROPONIN I 2022-05-13 [facility] BASIC METABOLIC PANEL (NA, K, CL, 2022-05-13 [place], [facility] of CO2, GLUCOSE, BUN, CREATININE, CA) 09:09:00 [facility] CBC WITH DIFF 2022-05-13 Burns, [facility] of 09:09:00 [facility] TROPONIN I 2022-05-13 [facility] 09:09:00 [facility] BASIC METABOLIC PANEL (NA, K, CL, 2022-05-13 [facility] of CO2, GLUCOSE, BUN, CREATININE, CA) 09:09:00 [facility] CBC WITH DIFF 2022-05-13 [facility] of 09:09:00 [facility] TROPONIN I 2022-05-13 Wilber [facility] of 09:09:00 [facility] BASIC METABOLIC PANEL (NA, K, CL, 2022-05-13 [facility] of CO2, GLUCOSE, BUN, CREATININE, CA) 09:09:00 [facility] CBC WITH DIFF 2022-05-13 [facility] of 09:09:00 [facility] POCT GLUCOSE (AUTOMATED) 2022-05-13 Sai Purnima Univers ity of 01:50:00 [facility] POCT GLUCOSE (AUTOMATED) 2022-05-13 Sai [facility]ima [employer] [facility] of 01:50:00 [facility] POCT GLUCOSE (AUTOMATED) 2022-05-13 Sai [facility] [employer] [facility] of 01:50:00 [facility] CBC WITHOUT DIFF 2022-05-12 Wilber, [facility] of 23:13:00 [facility] CBC WITHOUT DIFF 2022-05-12 Wilber, [facility] of 23:13:00 [facility] CBC WITHOUT DIFF 2022-05-12 Wilber, [facility] of 23:13:00 [facility] POCT GLUCOSE (AUTOMATED) 2022-05-12 Sai [facility] of 22:08:00 [facility] POCT GLUCOSE (AUTOMATED) 2022-05-12 Sai [facility]ima [facility] of 22:08:00 [facility] POCT GLUCOSE (AUTOMATED) 2022-05-12 Sai [facility]ima [facility] of 22:08:00 [facility] WOUND CULTURE 2022-05-12 [facility]:45[facility]00 [facility] WOUND CULTURE 2022-05-12 [facility] of 21:45:00 [facility] WOUND CULTURE 2022-05-12 [facility] of 21:45:00 [facility] CBC WITHOUT DIFF 2022-05-12 Wilber, [facility] of 18:42:00 [facility] CBC WITHOUT DIFF 2022-05-12 Wilber, [facility] of 18:42:00 [facility] CBC WITHOUT DIFF 2022-05-12 Wilber, [facility] of 18:42:00 [facility] POCT GLUCOSE (AUTOMATED) 2022-05-12 Purnima Gibbs [facility] of 16:50:00 [facility] POCT GLUCOSE (AUTOMATED) 2022-05-12 Tung, [facility] of 16:50:00 [facility] POCT GLUCOSE (AUTOMATED) 2022-05-12 Tung, Purnima [facility] of 16:50:00 [facility] ESOPHAGOGASTRODUODENOSCOPY 2022-05-12 [facility] Un[facility] rsity of 14:03:00 [facility] ESOPHAGOGASTRODUODENOSCOPY 2022-05-12 Merwat, [facility] Unive rsity of 14:03:00 [facility]SE (AUTOMATED) 2022-05-12 Moulin, Jonn [facility] ity of 13:05:00 [facility] POCT GLUCOSE (AUTOMATED) 2022-05-12 Moulin, Jonn [facility] ity of 13:05:00 [facility] POCT GLUCOSE (AUTOMATED) 2022-05-12 [place]oulin, Jonn [facility] ity of 13:05:00 [facility] EGD (ENDO) 2022-05-12 [facility] of 12:54:31 [facility] EGD (ENDO) 2022-05-12 [facility] of 12:54:31 [facility] EGD (ENDO) 2022-05-12 [facility] 12:54:31 [facility] POCT GLUCOSE (AUTOMATED) 2022-05-12 [place]oulin, Jonn [facility] it[facility] of 12:24:00 [facility] POCT GLUCOSE (AUTOMATED) 2022-05-12 [place]lin, Jonn [facility] it[facility] of 12:24:00 [facility] POCT GLUCOSE (AUTOMATED) 2022-05-12 [place]lin, Jonn [facility] it[facility] of 12:24:00 [facility] MAGNESIUM 2022-05-12 [facility] of 11:01:00 [facility] TROPONIN I 2022-05-12 Purnima Gibbs [place] of 11:01:00 [facility] BASIC METABOLIC PANEL (NA, K, CL, 2022-05-12 [facility] of CO2, GLUCOSE, BUN, CREATININE, CA) 11:01:00 [facility] CBC WITH DIFF 2022-05-12 [facility] of 11:01:00 [facility] PROTHROMBIN TIME / INR 2022-05-12 Ahmed, [facility] Universit y of 11:01:00 [facility] MAGNESIUM 2022-05-12 med, [facility] University of 11:01:00 [facility] TROPONIN I 2022-05-12 [facility] of 11:01:00 [facility] BASIC METABOLIC PANEL (NA, K, CL, 2022-05-12 med, [facility] of CO2, GLUCOSE, BUN, CREATININE, CA) 11:01:00 [facility] CBC WITH DIFF 2022-05-12 med, [facility] of 11:01:00 [facility] PROTHROMBIN TIME / INR 2022-05-12 med, [facility] Universit y of 11:01:00 [facility] MAGNESIUM 2022-05-12 med, [facility] of 11:01:00 [facility] TROPONIN I 2022-05-12 Tung, [facility] of 11:01:00 [facility] BASIC METABOLIC PANEL (NA, K, CL, 2022-05-12 med, [facility] of CO2, GLUCOSE, BUN, CREATININE, CA) 11:01:00 [facility] CBC WITH DIFF 2022-05-12 med, [facility] of 11:01:00 [facility] PROTHROMBIN TIME / INR 2022-05-12 [facility] y of 11:01:00 [facility] TROPONIN I 2022-05-12 [facility] of 02:11:00 [facility] CBC WITH DIFF 2022-05-12 [facility] 02:11:00 [facility] TROPONIN I 2022-05-12 [facility] of 02:11:00 [facility] CBC WITH DIFF 2022-05-12 [facility] 02:11:00 [facility] TROPONIN I 2022-05-12 [facility] of 02:11:00 [facility] CBC WITH DIFF 2022-05-12 Adryan, [place] of 02:11:00 [facility] POCT GLUCOSE (AUTOMATED) 2022-05-12 Jonn Geronimo [facility] of 00:23:00 [facility] POCT GLUCOSE (AUTOMATED) 2022-05-12 Jonn Geronimo [facility] of 00:23:00 [facility] POCT GLUCOSE (AUTOMATED) 2022-05-12 Moofelia, Jonn [facility] it[facility] of 00:23:00 [facility] POCT GLUCOSE (AUTOMATED) 2022-05-11 [place]oulin, Jonn [facility] of 20:41:00 [facility] POCT GLUCOSE (AUTOMATED) 2022-05-11 [place]lin, Jonn [facility] of 20:41:00 [facility] POCT GLUCOSE (AUTOMATED) 2022-05-11 [place], Jonn [facility] of 20:41:00 [facility] TRANSFUSE PACKED RBC 2022-05-11 Tung, [facility] of 17:55:00 [facility] TRANSFUSE PACKED RBC 2022-05-11 Tung, [facility] of 17:55:00 [facility] TRANSFUSE PACKED RBC 2022-05-11 Tung, [facility] of 17:55:00 [facility] PREPARE PACKED RBC 2022-05-11 Tung, [facility] of 17:45:52 [facility] PREPARE PACKED RBC 2022-05-11 Tung, [facility] of 17:45:52 [facility] PREPARE PACKED RBC 2022-05-11 Tung, [facility] of 17:45:52 [facility] POCT GLUCOSE (AUTOMATED) 2022-05-11 [place]lin, Jonn [facility] of 16:49:00 [facility] POCT GLUCOSE (AUTOMATED) 2022-05-11 [place], Jonn [facility] of 16:49:00 [facility] POCT GLUCOSE (AUTOMATED) 2022-05-11 [place], Jonn [facility] of 16:49:00 [facility] ABORH INVESTIGATION 2022-05-11 Purnima Gibbs [place] o f 15:20:00 [facility] ABORH INVESTIGATION 2022-05-11 Purnima Gibbs [place] o f 15:20:00 [facility] ABORH INVESTIGATION 2022-05-11 Sai [facility] o f 15:20:00 [facility] HB INDIRECT ANTIGLOBULIN TEST 2022-05-11 Sai Purnima [facility] iversity of 14:29:00 [facility] ABORH INVESTIGATION 2022-05-11 Purnima Gibbs [place] o f 14:29:00 [facility] HB INDIRECT ANTIGLOBULIN TEST 2022-05-11 Sai Purnima [facility] iversity of 14:29:00 [facility] ABORH INVESTIGATION 2022-05-11 Sai [facility] o f 14:29:00 [facility] HB INDIRECT ANTIGLOBULIN TEST 2022-05-11 Purnima Gibbs Un iversity of 14:29:00 [facility] ABORH INVESTIGATION 2022-05-11 Purnima Gibbs [place] o f 14:29:00 [facility] CBC WITH DIFF 2022-05-11 Isabel, [place] of 14:28:00 [facility] PROTHROMBIN TIME / INR 2022-05-11 Purnima Gibbs [facility] of 14:28:00 [facility] ACTIVATED PARTIAL THRMPLAS LUTHER 2022-05-11 Purnima Gibbs [facility] of 14:28:00 [facility] FIBRINOGEN 2022-05-11 Sai Purnima [place] of 14:28:00 [facility] CBC WITH DIFF 2022-05-11 Isabel, [place] of 14:28:00 [facility] PROTHROMBIN TIME / INR 2022-05-11 [facility] 14:28[facility]00 [facility] ACTIVATED PARTIAL THRMPLAS LUTHER 2022-05-11 Purnima Gibbs [facility] of 14:28:00 [facility] FIBRINOGEN 2022-05-11 Sai Purnima [place] of 14:28:00 [facility] CBC WITH DIFF 2022-05-11 Isabel, [place] of 14:28:00 [facility] PROTHROMBIN TIME / INR 2022-05-11 [facility] 14:28:00 [facility] ACTIVATED PARTIAL THRMPLAS LUTHER 2022-05-11 Purnima Gibbs [facility] of 14:28:00 [facility] FIBRINOGEN 2022-05-11 Sai Purnima [place] of 14:28:00 [facility] TROPONIN I 2022-05-11 Sai Purnima [place] of 14:27:00 [facility] HEPATITIS B SURFACE ANTIGEN 2022-05-11 [facility] ersity of 14:27:00 [facility] TROPONIN I 2022-05-11 Sai [facility] of 14:27:00 [facility] HEPATITIS B SURFACE ANTIGEN 2022-05-11 [facility] ersity of 14:27:00 [facility] TROPONIN I 2022-05-11 Sai Purnima [place] of 14:27:00 [facility] HEPATITIS B SURFACE ANTIGEN 2022-05-11 [facility] ersity of 14:27:00 [facility] HB ECG ROUTINE & RHYTHM STRIP 2022-05-11 Tamiko Caldwell, Un iversity of 10:46:38 [facility] HB ECG ROUTINE & RHYTHM STRIP 2022-05-11 Tamiko Caldwell, Un iversity of 10:46:38 [facility] HB ECG ROUTINE & RHYTHM STRIP 2022-05-11 Tamiko Caldwell, Un iversity of 10:46:38 [facility] TROPONIN I 2022-05-11 Allison [facility] of 08:37:00 [facility] CBC WITHOUT DIFF 2022-05-11 Allison, [facility] of 08:37:00 [facility] TROPONIN I 2022-05-11 Allison, [facility] of 08:37:00 [facility] CBC WITHOUT DIFF 2022-05-11 Allison, [facility] of 08:37:00 [facility] TROPONIN I 2022-05-11 Allison, [facility] of 08:37:00 [facility] CBC WITHOUT DIFF 2022-05-11 Allison, [facility] of 08:37:00 [facility] TROPONIN I 2022-05-11 Allison, [facility] of 03:53:00 [facility] ACTIVATED PARTIAL THRMPLAS LUTHER 2022-05-11 Allison, [facility] of 03:53:00 [facility] TROPONIN I 2022-05-11 Allison, [facility] of 03:53:00 [facility] ACTIVATED PARTIAL THRMPLAS LUTHER 2022-05-11 Allison, [facility] of 03:53:00 [facility] TROPONIN I 2022-05-11 Allison, [facility] of 03:53:00 [facility] ACTIVATED PARTIAL THRMPLAS LUTHER 2022-05-11 Allison, [facility] of 03:53:00 [facility] POCT GLUCOSE (AUTOMATED) 2022-05-11 Hay Gao ity of 01:44:00 [facility] POCT GLUCOSE (AUTOMATED) 2022-05-11 Hay Gao ity of 01:44:00 [facility] POCT GLUCOSE (AUTOMATED) 2022-05-11 Hay Gao ity of 01:44:00 [facility] CBC WITHOUT DIFF 2022-05-11 Ricco Cooper [place] of 01:25:00 [facility] CBC WITHOUT DIFF 2022-05-11 Allison, [facility] 01:25:00 [facility] CBC WITHOUT DIFF 2022-05-11 Allison, [facility] 01:25:00 [facility] ACTIVATED PARTIAL THRMPLAS LUTHER 2022-05-10 Allison, [facility] of 22:11:00 [facility] HEPARIN ANTI-XA, UNFRACTIONATED 2022-05-10 Allison, [facility] University of HEPARIN 22:11:00 [facility] ACTIVATED PARTIAL THRMPLAS LUTHER 2022-05-10 [facility] of 22:11:00 [facility] HEPARIN ANTI-XA, UNFRACTIONATED 2022-05-10 Allison, [facility] University of HEPARIN 22:11:00 [facility] ACTIVATED PARTIAL THRMPLAS LUTHER 2022-05-10 Allison, [facility] of 22:11:00 [facility] HEPARIN ANTI-XA, UNFRACTIONATED 2022-05-10 Allison, [facility] University of HEPARIN 22:11:00 [facility] POCT GLUCOSE (AUTOMATED) 2022-05-10 [facility] 21:20:00 [facility] POCT GLUCOSE (AUTOMATED) 2022-05-10 [facility] of 21:20:00 [facility] POCT GLUCOSE (AUTOMATED) 2022-05-10 [facility] of 21:20:00 [facility] TROPONIN I 2022-05-10 Ricco Cooper [place] of 20:54:00 [facility] TROPONIN I 2022-05-10 [facility] of 20:54:00 [facility] TROPONIN I 2022-05-10 Ricco Cooper [place] of 20:54:00 [facility] PREPARE PACKED RBC 2022-05-10 Ricco Cooper of 19:44:52 [facility] PREPARE PACKED RBC 2022-05-10 Ricco Cooper of 19:44:52 [facility] PREPARE PACKED RBC 2022-05-10 Ricco Cooper [place] of 19:44:52 [facility] TRANSTHORACIC ECHO (TTE) COMPLETE 2022-05-10 Madhuri Cooper [place] of W/ CONTRAST 19:35:00 [facility] TRANSTHORACIC ECHO (TTE) COMPLETE 2022-05-10 Madhuri Cooper [place] of W/ CONTRAST 19:35:00 [facility] TRANSTHORACIC ECHO (TTE) COMPLETE 2022-05-10 Madhuri Cooper [place] of W/ CONTRAST 19:35:00 [facility] CBC WITHOUT DIFF 2022-05-10 Ricco Cooper [place] of 17:46:00 [facility] CBC WITHOUT DIFF 2022-05-10 [facility] of 17:46:00 [facility] CBC WITHOUT DIFF 2022-05-10 Allison [facility] of 17:46:00 [facility] POCT GLUCOSE (AUTOMATED) 2022-05-10 Tamiko Caldwell [facility] ity of 17:38:00 [facility] POCT GLUCOSE (AUTOMATED) 2022-05-10 [facility] 17:38:00 [facility] POCT GLUCOSE (AUTOMATED) 2022-05-10 [facility] of 17:38:00 [facility] POCT GLUCOSE (AUTOMATED) 2022-05-10 Tamiko Caldwell, [facility] ity of 13:18:00 [facility] POCT GLUCOSE (AUTOMATED) 2022-05-10 [facility] of 13:18:00 [facility] POCT GLUCOSE (AUTOMATED) 2022-05-10 Tamiko Caldwell [facility] ity of 13:18:00 [facility] PREPARE PACKED RBC 2022-05-10 Tamiko Caldwell [facility] 12:52:36 [facility] PREPARE PACKED RBC 2022-05-10 Tamiko Caldwell [facility] 12:52:36 [facility] PREPARE PACKED RBC 2022-05-10 Tamiko Caldwell [facility] 12:52:36 [facility] HB ABO GROUPING 2022-05-10 Tamiko Caldwell [facility] 11:36:00 [facility] HB ABO GROUPING 2022-05-10 Tamiko Caldwell [facility] 11:36:00 [facility] HB ABO GROUPING 2022-05-10 [facility] 11:36:00 [facility] FERRITIN SERUM 2022-05-10 Masha Robison [facility] 10:14:00 [facility] TROPONIN I 2022-05-10 [facility] 10:14:00 [facility] BASIC METABOLIC PANEL (NA, K, CL, 2022-05-10 [facility] CO2, GLUCOSE, BUN, CREATININE, CA) 10:14:00 [facility] CBC WITHOUT DIFF 2022-05-10 [facility] 10:14:00 [facility] FERRITIN SERUM 2022-05-10 Masha Robison [facility] 10:14:00 [facility] TROPONIN I 2022-05-10 [facility] 10:14:00 [facility] BASIC METABOLIC PANEL (NA, K, CL, 2022-05-10 [facility] CO2, GLUCOSE, BUN, CREATININE, CA) 10:14:00 [facility] CBC WITHOUT DIFF 2022-05-10 [facility] 10:14:00 [facility] FERRITIN SERUM 2022-05-10 Masha Robison [facility] 10:14:00 [facility] TROPONIN I 2022-05-10 [facility] 10:14:00 [facility] BASIC METABOLIC PANEL (NA, K, CL, 2022-05-10 [facility] CO2, GLUCOSE, BUN, CREATININE, CA) 10:14:00 [facility] CBC WITHOUT DIFF 2022-05-10 [facility] 10:14:00 [facility] DISCLOSURE AND CONSENT, MEDICAL 2022-05-10 [facility] of AND SURGICAL PROCEDURES 05:01:00 Unassigned, No [facility] dical Name Branch DISCLOSURE AND CONSENT, MEDICAL 2022-05-10 [facility] AND SURGICAL PROCEDURES 05:01:00 Unassigned, No [facility] dical Name Branch POCT GLUCOSE (AUTOMATED) 2022-05-10 Zoraida Reed [facility] ity of 03:49:00 [facility] POCT GLUCOSE (AUTOMATED) 2022-05-10 Zoraida Reed Univers ity of 03:49:00 [facility] POCT GLUCOSE (AUTOMATED) 2022-05-10 Zoraida Reed [facility] ity of 03:49:00 [facility] TRANSFUSE PACKED RBC 2022-05-10 Zoraida Reed [place] of 01:50:00 [facility] TRANSFUSE PACKED RBC 2022-05-10 Zoraida Reed [place] of 01:50:00 [facility] TRANSFUSE PACKED RBC 2022-05-10 Zoraida Reed [place] of 01:50:00 [facility] PREPARE PACKED RBC 2022-05-10 [facility] of 01:43:06 Unassigned, No [facility] PREPARE PACKED RBC 2022-05-10 [facility] of 01:43:06 Unassigned, No [facility] PREPARE PACKED RBC 2022-05-10 [facility] of 01:43:06 Unassigned, No [facility] HB INDIRECT ANTIGLOBULIN TEST 2022-05-09 Zoraida Reed Un iversity of 23:43:00 [facility] ABORH INVESTIGATION 2022-05-09 Zoraida Reed [place] o f 23:43:00 [facility] HB INDIRECT ANTIGLOBULIN TEST 2022-05-09 Zoraida Reed Un iversity of 23:43:00 [facility] ABORH INVESTIGATION 2022-05-09 Zoraida Reed [place] o f 23:43:00 [facility] HB INDIRECT ANTIGLOBULIN TEST 2022-05-09 Zoraida Reed Un iversity of 23:43:00 [facility] ABORH INVESTIGATION 2022-05-09 Zoraida Reed [place] o f 23:43:00 [facility] COVID-19 (ID NOW RAPID TESTING) 2022-05-09 Zoraida Reed [place] of 22:41:00 [facility] LAB ONLY COVID INTERPRETATION 2022-05-09 Zoraida Reed Un iversity of 22:41:00 [facility] COVID-19 (ID NOW RAPID TESTING) 2022-05-09 Zoraida Reed [place] of 22:41:00 [facility] LAB ONLY COVID INTERPRETATION 2022-05-09 Zoraida Reed Un iversity of 22:41:00 [facility] COVID-19 (ID NOW RAPID TESTING) 2022-05-09 Zoraida Reed University of 22:41:00 [facility] LAB ONLY COVID INTERPRETATION 2022-05-09 Zroaida Reed Un iversity of 22:41:00 [facility] TROPONIN I 2022-05-09 Zoraida Reed University of 22:40:00 [facility] COMP. METABOLIC PANEL ([id number]) 2022-05-09 Zoraida Reed Un iversity of 22:40:00 [facility] IRON PANEL 2022-05-09 Masha Robison [place] of 22:40:00 [facility] CBC WITH DIFF 2022-05-09 Zoraida Reed University of 22:40:00 [facility] PROTHROMBIN TIME / INR 2022-05-09 Zoraida Reed Universit y of 22:40:00 [facility] ACTIVATED PARTIAL THRMPLAS LUTHER 2022-05-09 Zoraida Reed U niversity of 22:40:00 [facility] N-TERMINAL PRO-BNP 2022-05-09 Zoraida Reed University of 22:40:00 [facility] TROPONIN I 2022-05-09 Zoraida Reed University of 22:40:00 [facility] COMP. METABOLIC PANEL ([id number]) 2022-05-09 Zoraida Reed Un iversity of 22:40:00 [facility] IRON PANEL 2022-05-09 Masha Robison University of 22:40:00 [facility] CBC WITH DIFF 2022-05-09 Zoraida Reed University of 22:40:00 [facility] PROTHROMBIN TIME / INR 2022-05-09 Zoraida Reed Universit y of 22:40:00 [facility] ACTIVATED PARTIAL THRMPLAS LUTHER 2022-05-09 Zoraida Reed U niversity of 22:40:00 [facility] N-TERMINAL PRO-BNP 2022-05-09 Zoraida Reed University of 22:40:00 [facility] TROPONIN I 2022-05-09 Zoraida Reed University of 22:40:00 [facility] COMP. METABOLIC PANEL ([id number]) 2022-05-09 Zoraida Reed Un iversity of 22:40:00 [facility] IRON PANEL 2022-05-09 Masha Robison [place] of 22:40:00 [facility] CBC WITH DIFF 2022-05-09 Zoraida Reed [place] of 22:40:00 [facility] PROTHROMBIN TIME / INR 2022-05-09 Zoraida Reed Universit y of 22:40:00 [facility] ACTIVATED PARTIAL THRMPLAS LUTHER 2022-05-09 Zoraida Reed U niversity of 22:40:00 [facility] N-TERMINAL PRO-BNP 2022-05-09 Zoraida Reed [place] of 22:40:00 [facility] XR CHEST 1 VW 2022-05-09 Zoraida Reed [place] of 22:35:00 [facility] XR CHEST 1 VW 2022-05-09 Zoraida Reed [place] of 22:35:00 [facility] XR CHEST 1 VW 2022-05-09 Zoraida Reed [place] of 22:35:00 [facility] HB ECG ROUTINE & RHYTHM STRIP 2022-05-09 Zoraida Reed Un iversity of 22:01:31 [facility] HB ECG ROUTINE & RHYTHM STRIP 2022-05-09 Zoraida Reed Un iversity of 22:01:31 [facility] HB ECG ROUTINE & RHYTHM STRIP 2022-05-09 Zoraida Reed Un iversity of 22:01:31 [facility] NOTICE OF PRIVACY PRACTICES 2022-05-09 Doctor [facility] ersity of 21:51:37 Unassigned, No [facility] NOTICE OF PRIVACY PRACTICES 2022-05-09 Doctor Univ ersity of 21:51:37 Unassigned, No [facility] NOTICE OF PRIVACY PRACTICES 2022-05-09 Doctor [facility] ersity of 21:51:37 Unassigned, No [facility] CONSENT/REFUSAL FOR DIAGNOSIS AND 2022-05-09 [facility] of TREATMENT 21:49:43 Unassigned, No [facility] DISCLOSURE AND CONSENT, MEDICAL 2022-05-09 [facility] AND SURGICAL PROCEDURES 05:01:00 Unassigned, No [facility] dical Name Branch DISCLOSURE AND CONSENT, MEDICAL 2022-05-09 [facility] AND SURGICAL PROCEDURES 05:01:00 Unassigned, No [facility] dical Name Branch DISCLOSURE AND CONSENT, MEDICAL 2022-05-09 [employer] AND SURGICAL PROCEDURES 05:01:00 Unassigned, No [facility] dical Name Branch Encounters Start End Encounter Admission Attending Care Care Encounter Source Date/Time Date/Time Type Type Clinicians Facility Department ID 2023-02-08 Outpatient Dunlap, STLMLC STLMLC [id number] Common 10:57:01 Don[place] [address]143 [facility] 2022-11-11 Outpatient Dunlap, STLMLC STLMLC [id number] Common 08:36:00 Donavan 68263 [facility] 2022-11-06 Outpatient Dunlap, STLMLC STLMLC [id number] Common 10:21:01 Donavan [facility] 2022-11-02 Outpatient Dunlap, STLMLC STLMLC [id number] Common 08:55:00 Donavan [facility] 2022-06-26 Outpatient Dunlap, STLMLC STLMLC [id number] Common 16:12:00 Donavan 44995 [facility] 2021-12-24 Outpatient Dunlap, STLMLC STLMLC [id number] Common 13:20:29 [place] 89739 [facility] 2021-12-24 Outpatient Dunlap, STLMLC STLMLC [id number] Common 12:46:29 Donavan 78842 [facility] 2021-12-24 Outpatient Dunlap, STLMLC STLMLC [id number] Common 12:45:38 Donavan 91547 [facility] 2021-12-24 Outpatient Dunlap, STLMLC STLMLC [id number] Common 12:43:40 Donavan 62378 [facility] 2021-12-24 Outpatient Dunlap, STLMLC STLMLC [id number] Common 11:30:25 Donavan 37208 [facility] 2021-12-24 Outpatient Dunlap, STLMLC STLMLC [id number] Common 11:29:16 Donavan 18196 [facility] 2021-12-24 Outpatient Dunlap, STLMLC STLMLC [id number] Common 11:28:09 Donavan 37532 [facility] 2021-12-24 Outpatient Dunlap, STLMLC STLMLC [id number] Common 11:18:22 Donavan 05014 [facility] 2021-12-24 Outpatient Dunlap, STLMLC STLMLC [id number] Common 11:17:16 Donavan 61949 [facility] 2020-12-01 Inpatient [facility] [id number] [facility] 11:02:00 84 2020-12-01 Inpatient Urgent [facility] [id number] [facility] 00:00:00 [place] 84 2022-11-05 2022-11-05 (TEL) STLC STLC [id number] Co mmon 00:00:00 00:00:00 [facility] 2022-08-24 2022-08-24 (TEL) [facility] STLC [id number] Co mmon 00:00:00 00:00:00 [facility] 2022-08-20 2022-08-20 Documentat Garcia, [facility] [id number] [facility] 00:00:00 00:00:00 ion [facility] 2022-08-05 2022-08-05 OFFICE [facility] STLC [id number] Co mmon 00:00:00 00:00:00 VISIT [facility] PT - CHI LEVEL [address] [place] [address] 2022-07-24 2022-07-24 Orders Doctor HALL [id number] Univers 00:00:00 00:00:00 Only Unassigned, HOOD 350.1.13.10 ity of [place] [facility] 4.2.7.2.686 Nabeel as [phone] [place] [address] Branch 2022-06-29 2022-06-29 OFFICE STLC STLC [id number] Co mmon 00:00:00 00:00:00 VISIT [facility] PT - CHI LEVEL 4 [facility] 2022-05-09 2022-05-14 [facility] Zoraida Reed [facility] [id number] Univers 16:55:00 10:02:00 Encounter Taimko Caldwell, Francesutjarad HEALTH 350.1. 13.10 ity of Ricco Cooper CLEAR 4.2.7.2.686 [facility] [place], Mehran [place] [phone] Medical [facility] [address] [facility] ([facility]) Ney Burns 2022-05-09 2022-05-14 Inpatient X ANA [facility] [id number] Univers 16:55:00 10:02:00 NEY ity of [facility] 2022-05-13 2022-05-13 Surgery MatiassofyaTanvir [facility] 1.2.840.114 [id number] Univers 11:30:00 13:30:00 N HEALTH 350.1.13.10 it y [place] [id number] [place] [address] ([facility]) 2022-05-12 2022-05-12 Surgery Nora [facility] 1.2.840.114 [id number] Univers 08:50:00 09:30:00 Mu HEALTH 350.1.13.10 it y of Radha [place] [phone] [place] [address] ([facility]) 2022-05-09 2022-05-09 Orders Doctor ISABEL 1.2.840.114 [id number] Univers 00:00:00 00:00:00 Only Unassigned, HOOD 350.1.13.10 ity of [place] [facility] 4.2.7.2.686 Nabeel as [phone] [facility] 00[address] Branch 2022-05-04 2022-05-04 (TEL) [facility] STLC [id number] Co mmon 00:00:00 00:00:00 [facility] 2021-03-31 2021-03-31 Outpatient STLMLC STLMLC [id number] Common 00:00:00 00:00:00 [facility] 2021-03-28 2021-03-28 Outpatient STLMLC STLMLC [id number] Common 00:00:00 00:00:00 [facility] 2021-02-26 2021-02-26 Outpatient STLMLC STLMLC [id number] Common 00:00:00 00:00:00 [facility] 2021-02-26 2021-02-26 Outpatient STLMLC STLMLC [id number] Common 00:00:00 00:00:00 [facility] 2020-05-23 2020-05-23 [facility] [id number] Common 11:13:00 11:13:[address] [facility] 2020-05-16 2020-05-16 [facility] [id number] Common 11:17:00 11:17:[address] [facility] 2020-05-09 2020-05-09 [facility] [id number] Common 15:11:00 15:11:[address] [facility] 2020-05-07 2020-05-07 Abstract [facility] [id number] 00:00:00 00:00:00 Brigid A MULTISPEC 350.1.13.10 IALTY 4.2.7.2.686 CENTER [id number] [facility] 2020-05-07 2020-05-07 Abstract [facility] [id number] Univers 00:00:00 00:00:00 Brigid A MULTISPEC 350.1.13.10 ity of IALTY 4.2.7.2.686 [facility] [place] [phone] [facility] AND [facility] [address] [facility] 2020-04-16 2020-04-16 [facility] [id number] Common 14:20:00 14:20:00 t [facility] [address] [facility] 2020-03-14 2020-03-14 [facility] [id number] Common 16:40:00 16:40:[address] [facility] 2020-03-07 2020-03-07 [facility] [id number] Common 15:05:00 15:05:[address] [facility] 2020-03-06 2020-03-06 [facility] [id number] Common 08:00:00 08:00:[address] [facility] 2019-11-21 2019-11-21 [facility] [id number] Common 09:05:00 09:05:[address] [facility] 2019-11-13 2019-11-13 [facility] [id number] Common 09:27:00 09:27:[address] [facility] 2019-11-09 2019-11-09 [facility] [id number] Common 14:45:00 14:45:[address] [facility] 2019-08-11 2019-08-11 Telephone [facility] 1.2.840.114 [id number] 00:00:00 00:00:00 Rainey A MULTISPEC 350.1.13.10 IAL[place] 4.2.7.2.686 [place] [phone] [facility] 2019-08-11 2019-08-11 Telephone [facility] 1.2.840.114 [id number] [facility] 00:00:00 00:00:00 Rainey A MULTISPEC 350.1.13.10 ity of IALTY 4.2.7.2.686 [facility] [phone] [facility] AND [facility] [address] [facility] 2019-05-31 2019-05-31 Telephone [facility] 1.2.840.114 [id number] 00:00:00 00:00:00 Rainey A MULTISPEC 350.1.13.10 IAL[place] 4.2.7.2.686 [place] [id number] [facility] 2019-05-31 2019-05-31 Telephone [facility] 1.2.840.114 [id number] Univers 00:00:00 00:00:00 Brigid Emanuel MULTISPEC 350.1.13.10 itSuzanne 4.2.7.2.686 [facility] [phone] [address] [facility] Results Test Description Test Time Test Comments Results Result Comments Source HEMOGLOBIN A1C 2022-08-05 00:00:00 Test Item Value Reference Range Interpretation Comme nts A1C (test code = 4548-4) 6.4 THYROID STIMULATING [id number] 14:34:13 Test Item Value Reference Range Interpretation Comments TSH (test code = See_Comment Biotin has been [id number]) reported to cau se a negative bias, interpret resul ts relative to pat ient's use of biotin. [Automated mess age] The system [facility] generated this result transmitted ref erence range: 0.45 - 4 .70 mIU/L. The refe rence range was not u sed to interpret this result as normal/abnor mal. Lab Interpretation (test Normal code = 53355-6) [facility] [id number] 14:34:13 Test Item Value Reference Range Interpretation Comments TSH (test code = See_Comment Biotin has been [id number]) reported to cau se a negative bias, interpret resul ts relative to pat ient's use of biotin. [Automated mess age] The system [facility] generated this result transmitted ref erence range: 0.45 - 4 .70 mIU/L. The refe rence range was not u sed to interpret this result as normal/abnor mal. Lab Interpretation (test Normal code = 24468-0) [facility], [id number] 14:22:53 Test Item Value Reference Range Interpretation Comments dLDL Chol (test code = 00823-7) 68 mg/dL <130 Lab Interpretation (test code = Normal 41702-9) [facility], [id number] 14:22:53 Test Item Value Reference Range Interpretation Comments dLDL Chol (test code = 76493-2) 68 mg/dL <130 Lab Interpretation (test code = Normal 14312-2) [facility] (A1C)2022-05-14 14:04:11 Test Item Value Reference Range Interpretation Comments HGB A1C (test code = 7.3 % 4.0-5.7 H 4548-4) JINNY (test code = JINNY) Reference RangesNormal: <5.7%Prediabetes: 5.7 - 6.4%Diabetes: > 6.5% Lab Interpretation (test Abnormal code = 98644-8) [facility] (A1C)2022-05-14 14:04:11 Test Item Value Reference Range Interpretation Comments HGB A1C (test code = 7.3 % 4.0-5.7 H 4548-4) JINNY (test code = JINNY) Reference RangesNormal: <5.7%Prediabetes: 5.7 - 6.4%Diabetes: > 6.5% Lab Interpretation (test Abnormal code = 14350-8) [facility] GLUCOSE (AUTOMATED)2022-05-14 13:05:13 Test Item Value Reference Range Interpretation Comments POCT GLU (test code = 8740521855) 208 mg/dL 70-110 H Lab Interpretation (test code = Abnormal 83645-6) [facility] GLUCOSE (AUTOMATED)2022-05-14 13:05:13 Test Item Value Reference Range Interpretation Comments POCT GLU (test code = 8074935616) 208 mg/dL 70-110 H Lab Interpretation (test code = Abnormal 02939-9) [facility] (NA, K, CL, CO2, GLUCOSE, BUN, CREATININE, CA)2022-05-14 10:32:35 Test Item Value Reference Range Interpretation Comments NA (test code = 137 mmol/L 135-145 2488830125) K (test code = 4.2 mmol/L 3.5-5.0 2939093176) CL (test code = 100 mmol/L 98-108 6924139895) CO2 TOTAL (test code = 27 mmol/L 23-31 0468639788) AGAP (test code = 2-16 7273252697) BUN (test code = 33 mg/dL 7-23 H 0775614467) GLUCOSE (test code = 164 mg/dL 70-110 H 8173563039) CREATININE (test code = 8.53 mg/dL 0.60-1.25 H 8222146591) CALCIUM (test code = 8.7 mg/dL 8.6-10.6 2104774653) eGFR (test code = mL/min/1.73m2 0069280278) JINNY (test code = JINNY) Association of Glomerular Filtration Rate (GFR) and Staging of Kidney Disease* + --+ --+ ------+| GFR (mL/min/1.73 m2) ?| With Kidney Damage ?| ?Without Kidney Damage+ --------+ --------+ +| ?>90 ?| ?Stage one ?| ? Normal ?+ ---+ ---+ -------+| ?60-89 ?| ?Stage two ?| ? Decreased GFR ? + --+ --+ ------+| ?30-59 ?| ?Stage three ?| ? Stage three ? + --+ --+ ------+| ?15-29 ?| ?Stage four ? | ? Stage four ?+ ---+ ---+ -------+| ?<15 (or dialysis) ? ?| ?Stage five ? | ? Stage five ?+ ---+ ---+ -------+ *Each stage assumes the associated GFR level has been in effect for at least three months. ?Stages 1 to 5, with or without kidney disease, indicate chronic kidney disease. Notes: Determination of stages one and two (with eGFR >59mL/min/1.73 m2) requires estimation of kidney damage for at least three months as defined by structural or functional abnormalities of the kidney, manifested by either:Pathological abnormalities or Markers of kidney damage (including abnormalities in the composition of the blood or urine or abnormalities in imaging tests). Lab Interpretation Abnormal (test code = 05785-0) [facility] (NA, K, CL, CO2, GLUCOSE, BUN, CREATININE, CA)2022-05-14 10:32:35 Test Item Value Reference Range Interpretation Comments NA (test code = 137 mmol/L 135-145 2504793593) K (test code = 4.2 mmol/L 3.5-5.0 7908426776) CL (test code = 100 mmol/L 98-108 9810206194) CO2 TOTAL (test code = 27 mmol/L 23-31 5983758719) AGAP (test code = 2-16 2355866261) BUN (test code = 33 mg/dL 7-23 H 1926909643) GLUCOSE (test code = 164 mg/dL 70-110 H 1887837466) CREATININE (test code = 8.53 mg/dL 0.60-1.25 H 6358707221) CALCIUM (test code = 8.7 mg/dL 8.6-10.6 9859597469) eGFR (test code = mL/min/1.73m2 1515438277) JINNY (test code = JINNY) Association of Glomerular Filtration Rate (GFR) and Staging of Kidney Disease* + --+ --+ ------+| GFR (mL/min/1.73 m2) ?| With Kidney Damage ?| ?Without Kidney Damage+ --------+ --------+ +| ?>90 ?| ?Stage one ?| ? Normal ?+ ---+ ---+ -------+| ?60-89 ?| ?Stage two ?| ? Decreased GFR ? + --+ --+ ------+| ?30-59 ?| ?Stage three ?| ? Stage three ? + --+ --+ ------+| ?15-29 ?| ?Stage four ? | ? Stage four ?+ ---+ ---+ -------+| ?<15 (or dialysis) ? ?| ?Stage five ? | ? Stage five ?+ ---+ ---+ -------+ *Each stage assumes the associated GFR level has been in effect for at least three months. ?Stages 1 to 5, with or without kidney disease, indicate chronic kidney disease. Notes: Determination of stages one and two (with eGFR >59mL/min/1.73 m2) requires estimation of kidney damage for at least three months as defined by structural or functional abnormalities of the kidney, manifested by either:Pathological abnormalities or Markers of kidney damage (including abnormalities in the composition of the blood or urine or abnormalities in imaging tests). Lab Interpretation Abnormal (test code = 65935-7) [facility] WITHOUT [id number] 10:20:31 Test Item Value Reference Range Interpretation Comments WBC (test code = 6690-2) See_Comment [A utomated message] The system [facility] generated this result transmit corie reference range : 4.20 - 10.70 10*3/?L. The reference range was not used to interpret this result as normal/abnormal . RBC (test code = 789-8) See_Comment L [Au tomated message] The system PAYMILL generated this result transmit corie reference range : 4.26 - 5.52 10* 6/?L. The reference r mera was not used to interpret this result as normal/abnormal . HGB (test code = 718-7) 8.1 g/dL 12.2-16.4 L HCT (test code = 4544-3) 25.1 % 38.4-49.3 L MCH (test code = 785-6) 26.4 pg 26.1-32.7 MCV (test code = 787-2) 81.8 fL 81.7-95.6 MCHC (test code = 786-4) 32.3 g/dL 31.2-35.0 PLT (test code = 777-3) See_Comment [Au tomated message] The system [facility] generated this result transmit corie reference range : 150 - 328 10*3/?L. The reference range was not used to interpret this result as normal/abnormal . MPV (test code = 8.9 fL 9.8-13.0 L 80964-3) RDW-CV (test code = 20.7 % 12.1-15.4 H 788-0) RDW-SD (test code = 59.7 fL 38.5-51.6 H 36843-4) NRBC x10^3 (test code = <0.01 See_Comment [Au tomated message] 5916896269) The system [facility] generated this result transmit corie reference range : 10*3/?L. The reference range was not used to interpret this result as normal/abnormal . NRBC/100 WBC (test code See_Comment [Au tomated message] = 1581959908) The system [facility] generated this result transmit corie reference range : 0.0 - 10.0 /100 WBC s. The reference r mera was not used to interpret this result as normal/abnormal . IPF % (test code = 7931619320) Lab Interpretation (test Abnormal code = 54029-3) [facility] WITHOUT [id number] 10:20:31 Test Item Value Reference Range Interpretation Comments WBC (test code = 6690-2) See_Comment [A utomated message] The system [facility] generated this result transmit corie reference range : 4.20 - 10.70 10*3/?L. The reference range was not used to interpret this result as normal/abnormal . RBC (test code = 789-8) See_Comment L [Au tomated message] The system [facility] generated this result transmit corie reference range : 4.26 - 5.52 10* 6/?L. The reference r mera was not used to interpret this result as normal/abnormal . HGB (test code = 718-7) 8.1 g/dL 12.2-16.4 L HCT (test code = 4544-3) 25.1 % 38.4-49.3 L MCH (test code = 785-6) 26.4 pg 26.1-32.7 MCV (test code = 787-2) 81.8 fL 81.7-95.6 MCHC (test code = 786-4) 32.3 g/dL 31.2-35.0 PLT (test code = 777-3) See_Comment [Au tomated message] The system [facility] generated this result transmit corie reference range : 150 - 328 10*3/?L. The reference range was not used to interpret this result as normal/abnormal . MPV (test code = 8.9 fL 9.8-13.0 L 36437-2) RDW-CV (test code = 20.7 % 12.1-15.4 H 788-0) RDW-SD (test code = 59.7 fL 38.5-51.6 H 18127-1) NRBC x10^3 (test code = <0.01 See_Comment [Au tomated message] 7740882592) The system [facility] generated this result transmit corie reference range : 10*3/?L. The reference range was not used to interpret this result as normal/abnormal . NRBC/100 WBC (test code See_Comment [Au tomated message] = 0853924323) The system [facility] generated this result transmit corie reference range : 0.0 - 10.0 /100 WBC s. The reference r mera was not used to interpret this result as normal/abnormal . IPF % (test code = 3864817708) Lab Interpretation (test Abnormal code = 17220-4) [facility]ody (HBsAb)2022-05-14 10:04:26 Test Item Value Reference Range Interpretation Comments HBsAB (test code = Indeterminate 0697758427) HBsAb mIU/mL Semi-Quantitative (test code = 9557928741) JINNY (test code = Unable to determine if JINNY) antibody to Hepatitis B Surface Antigen is present at levels consistent with immunity. ?Patient's immune status should be assessed with other clinical information and/or retesting in 4-6 weeks as clinically indicated. ?If any questions, please contact Clinical Chemistry Director sedimentationist at .Unable to determine if antibody to Hepatitis B Surface Antigen is present at levels consistent with immunity. ?Patient's immune status should be assessed with other clinical information and/or retesting in 4-6 weeks as clinically indicated. ?If any questions, please contact Clinical Chemistry Director sedimentationist at .Unable to determine if antibody to Hepatitis B Surface Antigen is present at levels consistent with immunity. ?Patient's immune status should be assessed with other clinical information and/or retesting in 4-6 weeks as clinically indicated. ?If any questions, please contact Clinical Chemistry Director sedimentationist at .Interpretati on: ?Hepatitis B Surface Antibody ? Negative - Patient is considered to be not immune to infection with HBV. ? ? Positive - Anti-HBs detected at greater than or equal to 12 mIU/mL. ?Patient is considered to be immune to infection with HBV. ? [facility] (HBsAb)2022-05-14 10:04:26 Test Item Value Reference Range Interpretation Comments HBsAB (test code = Indeterminate 6878475415) HBsAb mIU/mL Semi-Quantitative (test code = 6267319502) JINNY (test code = Unable to determine if JINNY) antibody to Hepatitis B Surface Antigen is present at levels consistent with immunity. ?Patient's immune status should be assessed with other clinical information and/or retesting in 4-6 weeks as clinically indicated. ?If any questions, please contact Clinical Chemistry Director sedimentationist at .Unable to determine if antibody to Hepatitis B Surface Antigen is present at levels consistent with immunity. ?Patient's immune status should be assessed with other clinical information and/or retesting in 4-6 weeks as clinically indicated. ?If any questions, please contact Clinical Chemistry Director sedimentationist at .Unable to determine if antibody to Hepatitis B Surface Antigen is present at levels consistent with immunity. ?Patient's immune status should be assessed with other clinical information and/or retesting in 4-6 weeks as clinically indicated. ?If any questions, please contact Clinical Chemistry Director sedimentationist at .Interpretati on: ?Hepatitis B Surface Antibody ? Negative - Patient is considered to be not immune to infection with HBV. ? ? Positive - Anti-HBs detected at greater than or equal to 12 mIU/mL. ?Patient is considered to be immune to infection with HBV. ? [facility] GLUCOSE (AUTOMATED)2022-05-13 22:00:04 Test Item Value Reference Range Interpretation Comments POCT GLU (test code = 2150074782) 168 mg/dL 70-110 H Lab Interpretation (test code = Abnormal 84795-8) [facility] GLUCOSE (AUTOMATED)2022-05-13 22:00:04 Test Item Value Reference Range Interpretation Comments POCT GLU (test code = 7347455111) 168 mg/dL 70-110 H Lab Interpretation (test code = Abnormal 61192-1) [facility] GLUCOSE (AUTOMATED)2022-05-13 16:30:27 Test Item Value Reference Range Interpretation Comments POCT GLU (test code = 9661879378) 183 mg/dL 70-110 H Lab Interpretation (test code = Abnormal 74295-0) [facility] GLUCOSE (AUTOMATED)2022-05-13 16:30:27 Test Item Value Reference Range Interpretation Comments POCT GLU (test code = 9545011031) 183 mg/dL 70-110 H Lab Interpretation (test code = Abnormal 95707-2) [facility] GLUCOSE (AUTOMATED)2022-05-13 16:30:27 Test Item Value Reference Range Interpretation Comments POCT GLU (test code = 0621791529) 183 mg/dL 70-110 H Lab Interpretation (test code = Abnormal 07589-1) [facility] GLUCOSE (AUTOMATED)2022-05-13 13:20:20 Test Item Value Reference Range Interpretation Comments POCT GLU (test code = 3165361240) 210 mg/dL 70-110 H Lab Interpretation (test code = Abnormal 81615-6) [facility] GLUCOSE (AUTOMATED)2022-05-13 13:20:20 Test Item Value Reference Range Interpretation Comments POCT GLU (test code = 1582260373) 210 mg/dL 70-110 H Lab Interpretation (test code = Abnormal 08204-2) [facility] GLUCOSE (AUTOMATED)2022-05-13 13:20:20 Test Item Value Reference Range Interpretation Comments POCT GLU (test code = 0368545552) 210 mg/dL 70-110 H Lab Interpretation (test code = Abnormal 91873-4) [facility] [id number] 09:41:14 Test Item Value Reference Interpretation Comments Range TROPONIN I (test 4.430 ng/mL See_Comment H [Automated code = 0481309354) message] The system which generated this result transmitted reference range : <=0.034. The reference range was not used to interpret this result as normal/abnormal . JINNY (test code = Reference (Normal) JINNY) Range (defined by the 99th percentile reference limit): <= 0.034 ng/mL Note: Cardiac troponin begins to rise 3-4 hours after the onset of ischemia. Repeat in 4-6 hours if the sample was drawn within 3-4 hours of the onset of the symptom and found normal. Diagnosis of myocardial injury is made with acute changes in cTn concentrations with at least one serial sample above the 99th percentile upper reference limit (URL), taken together with the patient's clinical presentation. Biotin has been reported to cause a negative bias, interpret results relative to patient's use of biotin. Lab Interpretation Abnormal (test code = 95831-6) [facility] [facility] [id number] 09:41:14 Test Item Value Reference Interpretation Comments Range TROPONIN I (test 4.430 ng/mL See_Comment H [Automated code = 9148068961) message] The system which generated this result transmitted reference range : <=0.034. The reference range was not used to interpret this result as normal/abnormal . JINNY (test code = Reference (Normal) JINNY) Range (defined by the 99th percentile reference limit): <= 0.034 ng/mL Note: Cardiac troponin begins to rise 3-4 hours after the onset of ischemia. Repeat in 4-6 hours if the sample was drawn within 3-4 hours of the onset of the symptom and found normal. Diagnosis of myocardial injury is made with acute changes in cTn concentrations with at least one serial sample above the 99th percentile upper reference limit (URL), taken together with the patient's clinical presentation. Biotin has been reported to cause a negative bias, interpret results relative to patient's use of biotin. Lab Interpretation Abnormal (test code = 60437-6) [id number] Test Item Value Reference Interpretation Comments Range TROPONIN I (test 4.430 ng/mL See_Comment H [Automated code = 2680452381) message] The system which generated this result transmitted reference range : <=0.034. The reference range was not used to interpret this result as normal/abnormal . JINNY (test code = Reference (Normal) JINNY) Range (defined by the 99th percentile reference limit): <= 0.034 ng/mL Note: Cardiac troponin begins to rise 3-4 hours after the onset of ischemia. Repeat in 4-6 hours if the sample was drawn within 3-4 hours of the onset of the symptom and found normal. Diagnosis of myocardial injury is made with acute changes in cTn concentrations with at least one serial sample above the 99th percentile upper reference limit (URL), taken together with the patient's clinical presentation. Biotin has been reported to cause a negative bias, interpret results relative to patient's use of biotin. Lab Interpretation Abnormal (test code = 27775-6) [facility]NA, K, CL, CO2, GLUCOSE, BUN, CREATININE, CA)2022-05-13 09:31:22 Test Item Value Reference Range Interpretation Comments NA (test code = 136 mmol/L 135-145 6770511175) K (test code = 5.0 mmol/L 3.5-5.0 5209151362) CL (test code = 100 mmol/L 98-108 6362562372) CO2 TOTAL (test code = 24 mmol/L 23-31 9450819840) AGAP (test code = 2-16 3017642793) BUN (test code = 59 mg/dL 7-23 H 5139529517) GLUCOSE (test code = 280 mg/dL 70-110 H 0712092506) CREATININE (test code = 11.29 mg/dL 0.60-1.25 H 9312961303) CALCIUM (test code = 8.0 mg/dL 8.6-10.6 L 6868751195) eGFR (test code = mL/min/1.73m2 2493403709) JINNY (test code = JINNY) Association of Glomerular Filtration Rate (GFR) and Staging of Kidney Disease* + --+ --+ ------+| GFR (mL/min/1.73 m2) ?| With Kidney Damage ?| ?Without Kidney Damage+ --------+ --------+ +| ?>90 ?| ?Stage one ?| ? Normal ?+ ---+ ---+ -------+| ?60-89 ?| ?Stage two ?| ? Decreased GFR ? + --+ --+ ------+| ?30-59 ?| ?Stage three ?| ? Stage three ? + --+ --+ ------+| ?15-29 ?| ?Stage four ? | ? Stage four ?+ ---+ ---+ -------+| ?<15 (or dialysis) ? ?| ?Stage five ? | ? Stage five ?+ ---+ ---+ -------+ *Each stage assumes the associated GFR level has been in effect for at least three months. ?Stages 1 to 5, with or without kidney disease, indicate chronic kidney disease. Notes: Determination of stages one and two (with eGFR >59mL/min/1.73 m2) requires estimation of kidney damage for at least three months as defined by structural or functional abnormalities of the kidney, manifested by either:Pathological abnormalities or Markers of kidney damage (including abnormalities in the composition of the blood or urine or abnormalities in imaging tests). Lab Interpretation Abnormal (test code = 19887-0) [facility] METABOLIC PANEL (NA, K, CL, CO2, GLUCOSE, BUN, CREATININE, CA)2022-05-13 09:31:22 Test Item Value Reference Range Interpretation Comments NA (test code = 136 mmol/L 135-145 5600638720) K (test code = 5.0 mmol/L 3.5-5.0 6736447301) CL (test code = 100 mmol/L 98-108 4391817656) CO2 TOTAL (test code = 24 mmol/L 23-31 5577129801) AGAP (test code = 2-16 0701141012) BUN (test code = 59 mg/dL 7-23 H 2984581694) GLUCOSE (test code = 280 mg/dL 70-110 H 2896892837) CREATININE (test code = 11.29 mg/dL 0.60-1.25 H 9338811152) CALCIUM (test code = 8.0 mg/dL 8.6-10.6 L 3759015737) eGFR (test code = mL/min/1.73m2 4142581181) JINNY (test code = JINNY) Association of Glomerular Filtration Rate (GFR) and Staging of Kidney Disease* + --+ --+ ------+| GFR (mL/min/1.73 m2) ?| With Kidney Damage ?| ?Without Kidney Damage+ --------+ --------+ +| ?>90 ?| ?Stage one ?| ? Normal ?+ ---+ ---+ -------+| ?60-89 ?| ?Stage two ?| ? Decreased GFR ? + --+ --+ ------+| ?30-59 ?| ?Stage three ?| ? Stage three ? + --+ --+ ------+| ?15-29 ?| ?Stage four ? | ? Stage four ?+ ---+ ---+ -------+| ?<15 (or dialysis) ? ?| ?Stage five ? | ? Stage five ?+ ---+ ---+ -------+ *Each stage assumes the associated GFR level has been in effect for at least three months. ?Stages 1 to 5, with or without kidney disease, indicate chronic kidney disease. Notes: Determination of stages one and two (with eGFR >59mL/min/1.73 m2) requires estimation of kidney damage for at least three months as defined by structural or functional abnormalities of the kidney, manifested by either:Pathological abnormalities or Markers of kidney damage (including abnormalities in the composition of the blood or urine or abnormalities in imaging tests). Lab Interpretation Abnormal (test code = 92850-9) [facility] METABOLIC PANEL (NA, K, CL, CO2, GLUCOSE, BUN, CREATININE, CA)2022-05-13 09:31:22 Test Item Value Reference Range Interpretation Comments NA (test code = 136 mmol/L 135-145 2689257628) K (test code = 5.0 mmol/L 3.5-5.0 9274468254) CL (test code = 100 mmol/L 98-108 0473505196) CO2 TOTAL (test code = 24 mmol/L 23-31 9403166148) AGAP (test code = 2-16 6163679071) BUN (test code = 59 mg/dL 7-23 H 0721915257) GLUCOSE (test code = 280 mg/dL 70-110 H 4048562001) CREATININE (test code = 11.29 mg/dL 0.60-1.25 H 4335853909) CALCIUM (test code = 8.0 mg/dL 8.6-10.6 L 2347427072) eGFR (test code = mL/min/1.73m2 8497045372) JINNY (test code = JINNY) Association of Glomerular Filtration Rate (GFR) and Staging of Kidney Disease* + --+ --+ ------+| GFR (mL/min/1.73 m2) ?| With Kidney Damage ?| ?Without Kidney Damage+ --------+ --------+ +| ?>90 ?| ?Stage one ?| ? Normal ?+ ---+ ---+ -------+| ?60-89 ?| ?Stage two ?| ? Decreased GFR ? + --+ --+ ------+| ?30-59 ?| ?Stage three ?| ? Stage three ? + --+ --+ ------+| ?15-29 ?| ?Stage four ? | ? Stage four ?+ ---+ ---+ -------+| ?<15 (or dialysis) ? ?| ?Stage five ? | ? Stage five ?+ ---+ ---+ -------+ *Each stage assumes the associated GFR level has been in effect for at least three months. ?Stages 1 to 5, with or without kidney disease, indicate chronic kidney disease. Notes: Determination of stages one and two (with eGFR >59mL/min/1.73 m2) requires estimation of kidney damage for at least three months as defined by structural or functional abnormalities of the kidney, manifested by either:Pathological abnormalities or Markers of kidney damage (including abnormalities in the composition of the blood or urine or abnormalities in imaging tests). Lab Interpretation Abnormal (test code = 76874-4) [facility] WITH [id number] 09:15:31 Test Item Value Reference Range Interpretation Comments WBC (test code = See_Comment [Automated 6690-2) message] The sy stem which generated this result transmitted reference range : 4.20 - 10.70 10*3/?L. The reference range was not used to interpret this result as normal/abnormal . RBC (test code = See_Comment L [Automated 789-8) message] The sy stem which generated this result transmitted reference range : 4.26 - 5.52 10*6/?L. The reference range was not used to interpret this result as normal/abnormal . HGB (test code = 7.8 g/dL 12.2-16.4 L 718-7) HCT (test code = 24.1 % 38.4-49.3 L 4544-3) MCV (test code = 83.7 fL 81.7-95.6 787-2) MCH (test code = 27.1 pg 26.1-32.7 785-6) MCHC (test code = 32.4 g/dL 31.2-35.0 786-4) RDW-SD (test code = 61.7 fL 38.5-51.6 H 99302-1) RDW-CV (test code = 21.2 % 12.1-15.4 H 788-0) PLT (test code = See_Comment [Automated 777-3) message] The sy stem which generated this result transmitted reference range : 150 - 328 10*3/ ?L. The reference r mera was not used to interpret this result as normal/abnormal . MPV (test code = 9.7 fL 9.8-13.0 L 50615-9) NRBC/100 WBC (test See_Comment [Automat ed code = 7029918287) message] The system which generated this result transmitted reference range : 0.0 - 10.0 /100 WBCs. The refer ence range was not u sed to interpret th is result as normal/abnormal . NRBC x10^3 (test code <0.01 See_Comment [Auto mated = 9341476728) message] The s ystem which generated this result transmitted reference range : 10*3/?L. The reference range was not used to interpret this result as normal/abnormal . GRAN MAT (NEUT) % 72.7 % (test code = 770-8) IMM GRAN % (test code 0.40 % = 4532564922) LYMPH % (test code = 11.6 % 736-9) MONO % (test code = 10.2 % 5905-5) EOS % (test code = 4.7 % 713-8) BASO % (test code = 0.4 % 706-2) GRAN MAT x10^3(ANC) 6.56 10*3/uL 1.99-6.95 (test code = 6277567413) IMM GRAN x10^3 (test 0.04 10*3/uL 0.00-0.06 code = 7165942792) LYMPH x10^3 (test code 1.05 10*3/uL 1.09-3.23 L = 731-0) MONO x10^3 (test code 0.92 10*3/uL 0.36-1.02 = 742-7) EOS x10^3 (test code = 0.42 10*3/uL 0.06-0.53 711-2) BASO x10^3 (test code 0.04 10*3/uL 0.01-0.09 = 704-7) Lab Interpretation Abnormal (test code = 68522-0) [facility] WITH [id number] 09:15:31 Test Item Value Reference Range Interpretation Comments WBC (test code = See_Comment [Automated 5990-2) message] The sy stem which generated this result transmitted reference range : 4.20 - 10.70 10*3/?L. The reference range was not used to interpret this result as normal/abnormal . RBC (test code = See_Comment L [Automated 379-8) message] The sy stem which generated this result transmitted reference range : 4.26 - 5.52 10*6/?L. The reference range was not used to interpret this result as normal/abnormal . HGB (test code = 7.8 g/dL 12.2-16.4 L 718-7) HCT (test code = 24.1 % 38.4-49.3 L 4544-3) MCV (test code = 83.7 fL 81.7-95.6 787-2) MCH (test code = 27.1 pg 26.1-32.7 785-6) MCHC (test code = 32.4 g/dL 31.2-35.0 786-4) RDW-SD (test code = 61.7 fL 38.5-51.6 H 00058-4) RDW-CV (test code = 21.2 % 12.1-15.4 H 788-0) PLT (test code = See_Comment [Automated 777-3) message] The sy stem which generated this result transmitted reference range : 150 - 328 10*3/ ?L. The reference r mera was not used to interpret this result as normal/abnormal . MPV (test code = 9.7 fL 9.8-13.0 L 68941-7) NRBC/100 WBC (test See_Comment [Automat ed code = 1289894978) message] The system which generated this result transmitted reference range : 0.0 - 10.0 /100 WBCs. The refer ence range was not u sed to interpret th is result as normal/abnormal . NRBC x10^3 (test code <0.01 See_Comment [Auto mated = 0395908259) message] The s ystem which generated this result transmitted reference range : 10*3/?L. The reference range was not used to interpret this result as normal/abnormal . GRAN MAT (NEUT) % 72.7 % (test code = 770-8) IMM GRAN % (test code 0.40 % = 3051943478) LYMPH % (test code = 11.6 % 736-9) MONO % (test code = 10.2 % 5905-5) EOS % (test code = 4.7 % 713-8) BASO % (test code = 0.4 % 706-2) GRAN MAT x10^3(ANC) 6.56 10*3/uL 1.99-6.95 (test code = 9703659589) IMM GRAN x10^3 (test 0.04 10*3/uL 0.00-0.06 code = 1445674648) LYMPH x10^3 (test code 1.05 10*3/uL 1.09-3.23 L = 731-0) MONO x10^3 (test code 0.92 10*3/uL 0.36-1.02 = 742-7) EOS x10^3 (test code = 0.42 10*3/uL 0.06-0.53 711-2) BASO x10^3 (test code 0.04 10*3/uL 0.01-0.09 = 704-7) Lab Interpretation Abnormal (test code = 07593-1) [facility] WITH [id number] 09:15:31 Test Item Value Reference Range Interpretation Comments WBC (test code = See_Comment [Automated 6690-2) message] The sy stem which generated this result transmitted reference range : 4.20 - 10.70 10*3/?L. The reference range was not used to interpret this result as normal/abnormal . RBC (test code = See_Comment L [Automated 789-8) message] The sy stem which generated this result transmitted reference range : 4.26 - 5.52 10*6/?L. The reference range was not used to interpret this result as normal/abnormal . HGB (test code = 7.8 g/dL 12.2-16.4 L 718-7) HCT (test code = 24.1 % 38.4-49.3 L 4544-3) MCV (test code = 83.7 fL 81.7-95.6 787-2) MCH (test code = 27.1 pg 26.1-32.7 785-6) MCHC (test code = 32.4 g/dL 31.2-35.0 786-4) RDW-SD (test code = 61.7 fL 38.5-51.6 H 71793-0) RDW-CV (test code = 21.2 % 12.1-15.4 H 788-0) PLT (test code = See_Comment [Automated 777-3) message] The sy stem which generated this result transmitted reference range : 150 - 328 10*3/ ?L. The reference r mera was not used to interpret this result as normal/abnormal . MPV (test code = 9.7 fL 9.8-13.0 L 50875-9) NRBC/100 WBC (test See_Comment [Automat ed code = 4229651715) message] The system which generated this result transmitted reference range : 0.0 - 10.0 /100 WBCs. The refer ence range was not u sed to interpret th is result as normal/abnormal . NRBC x10^3 (test code <0.01 See_Comment [Auto mated = 2907965771) message] The s ystem which generated this result transmitted reference range : 10*3/?L. The reference range was not used to interpret this result as normal/abnormal . GRAN MAT (NEUT) % 72.7 % (test code = 770-8) IMM GRAN % (test code 0.40 % = 0386992035) LYMPH % (test code = 11.6 % 736-9) MONO % (test code = 10.2 % 5905-5) EOS % (test code = 4.7 % 713-8) BASO % (test code = 0.4 % 706-2) GRAN MAT x10^3(ANC) 6.56 10*3/uL 1.99-6.95 (test code = 4503355195) IMM GRAN x10^3 (test 0.04 10*3/uL 0.00-0.06 code = 6587983476) LYMPH x10^3 (test code 1.05 10*3/uL 1.09-3.23 L = 731-0) MONO x10^3 (test code 0.92 10*3/uL 0.36-1.02 = 742-7) EOS x10^3 (test code = 0.42 10*3/uL 0.06-0.53 711-2) BASO x10^3 (test code 0.04 10*3/uL 0.01-0.09 = 704-7) Lab Interpretation Abnormal (test code = 92111-1) [facility] GLUCOSE (AUTOMATED)2022-05-13 01:51:42 Test Item Value Reference Range Interpretation Comments POCT GLU (test code = 3169031460) 241 mg/dL 70-110 H Lab Interpretation (test code = Abnormal 84557-8) [facility] GLUCOSE (AUTOMATED)2022-05-13 01:51:42 Test Item Value Reference Range Interpretation Comments POCT GLU (test code = 5485478190) 241 mg/dL 70-110 H Lab Interpretation (test code = Abnormal 56810-0) [facility]:42 Test Item Value Reference Range Interpretation Comments POCT GLU (test code = 4904318538) 241 mg/dL 70-110 H Lab Interpretation (test code = Abnormal 71886-7) [facility] [id number] 23:28:05 Test Item Value Reference Range Interpretation Comments WBC (test code = 6690-2) See_Comment [A utomated message] The system [facility] generated this result transmit corie reference range : 4.20 - 10.70 10*3/?L. The reference range was not used to interpret this result as normal/abnormal . RBC (test code = 789-8) See_Comment L [Au tomated message] The system [facility] generated this result transmit corie reference range : 4.26 - 5.52 10* 6/?L. The reference r mera was not used to interpret this result as normal/abnormal . HGB (test code = 718-7) 8.0 g/dL 12.2-16.4 L HCT (test code = 4544-3) 24.5 % 38.4-49.3 L MCH (test code = 785-6) 26.8 pg 26.1-32.7 MCV (test code = 787-2) 82.2 fL 81.7-95.6 MCHC (test code = 786-4) 32.7 g/dL 31.2-35.0 PLT (test code = 777-3) See_Comment [Au tomated message] The system [facility] generated this result transmit corie reference range : 150 - 328 10*3/?L. The reference range was not used to interpret this result as normal/abnormal . MPV (test code = 9.1 fL 9.8-13.0 L 31028-5) RDW-CV (test code = 21.2 % 12.1-15.4 H 788-0) RDW-SD (test code = 60.4 fL 38.5-51.6 H 89349-1) NRBC x10^3 (test code = <0.01 See_Comment [Au tomated message] 4565484161) The system [facility] generated this result transmit corie reference range : 10*3/?L. The reference range was not used to interpret this result as normal/abnormal . NRBC/100 WBC (test code See_Comment [Au tomated message] = 5482841932) The [facility] generated this result transmit corie reference range : 0.0 - 10.0 /100 WBC s. The reference r mera was not used to interpret this result as normal/abnormal . IPF % (test code = 0710008463) Lab Interpretation (test Abnormal code = 87469-7) [facility] WITHOUT [id number] 23:28:05 Test Item Value Reference Range Interpretation Comments WBC (test code = 6690-2) See_Comment [A utomated message] The system [facility] generated this result transmit corie reference range : 4.20 - 10.70 10*3/?L. The reference range was not used to interpret this result as normal/abnormal . RBC (test code = 789-8) See_Comment L [Au tomated message] The system [facility] generated this result transmit corie reference range : 4.26 - 5.52 10* 6/?L. The reference r mera was not used to interpret this result as normal/abnormal . HGB (test code = 718-7) 8.0 g/dL 12.2-16.4 L HCT (test code = 4544-3) 24.5 % 38.4-49.3 L MCH (test code = 785-6) 26.8 pg 26.1-32.7 MCV (test code = 787-2) 82.2 fL 81.7-95.6 MCHC (test code = 786-4) 32.7 g/dL 31.2-35.0 PLT (test code = 777-3) See_Comment [Au tomated message] The system [facility] generated this result transmit corie reference range : 150 - 328 10*3/?L. The reference range was not used to interpret this result as normal/abnormal . MPV (test code = 9.1 fL 9.8-13.0 L 70350-1) RDW-CV (test code = 21.2 % 12.1-15.4 H 788-0) RDW-SD (test code = 60.4 fL 38.5-51.6 H 77843-6) NRBC x10^3 (test code = <0.01 See_Comment [Au tomated message] 6015969033) The system [facility] generated this result transmit corie reference range : 10*3/?L. The reference range was not used to interpret this result as normal/abnormal . NRBC/100 WBC (test code See_Comment [Au tomated message] = 2803700654) The system [facility] generated this result transmit corie reference range : 0.0 - 10.0 /100 WBC s. The reference r mera was not used to interpret this result as normal/abnormal . IPF % (test code = 0102192479) Lab Interpretation (test Abnormal code = 28821-7) [facility] WITHOUT [id number] 23:28:05 Test Item Value Reference Range Interpretation Comments WBC (test code = 6690-2) See_Comment [A utomated message] The system [facility] generated this result transmit corie reference range : 4.20 - 10.70 10*3/?L. The reference range was not used to interpret this result as normal/abnormal . RBC (test code = 789-8) See_Comment L [Au tomated message] The system [facility] generated this result transmit corie reference range : 4.26 - 5.52 10* 6/?L. The reference r mera was not used to interpret this result as normal/abnormal . HGB (test code = 718-7) 8.0 g/dL 12.2-16.4 L HCT (test code = 4544-3) 24.5 % 38.4-49.3 L MCH (test code = 785-6) 26.8 pg 26.1-32.7 MCV (test code = 787-2) 82.2 fL 81.7-95.6 MCHC (test code = 786-4) 32.7 g/dL 31.2-35.0 PLT (test code = 777-3) See_Comment [Au tomated message] The system [facility] generated this result transmit corie reference range : 150 - 328 10*3/?L. The reference range was not used to interpret this result as normal/abnormal . MPV (test code = 9.1 fL 9.8-13.0 L 99789-0) RDW-CV (test code = 21.2 % 12.1-15.4 H 788-0) RDW-SD (test code = 60.4 fL 38.5-51.6 H 38716-4) NRBC x10^3 (test code = <0.01 See_Comment [Au tomated message] 6249914285) The system [facility] generated this result transmit corie reference range : 10*3/?L. The reference range was not used to interpret this result as normal/abnormal . NRBC/100 WBC (test code See_Comment [Au tomated message] = 8949084467) The system [employer] generated this result transmit corie reference range : 0.0 - 10.0 /100 WBC s. The reference r mera was not used to interpret this result as normal/abnormal . IPF % (test code = 2481113034) Lab Interpretation (test Abnormal code = 84731-1) [facility] GLUCOSE (AUTOMATED)2022-05-12 22:44:44 Test Item Value Reference Range Interpretation Comments POCT GLU (test code = 1843439236) 213 mg/dL 70-110 H Lab Interpretation (test code = Abnormal 24103-0) [facility] GLUCOSE (AUTOMATED)2022-05-12 22:44:44 Test Item Value Reference Range Interpretation Comments POCT GLU (test code = 0746289594) 213 mg/dL 70-110 H Lab Interpretation (test code = Abnormal 37469-1) [facility] GLUCOSE (AUTOMATED)2022-05-12 22:44:44 Test Item Value Reference Range Interpretation Comments POCT GLU (test code = 0575036687) 213 mg/dL 70-110 H Lab Interpretation (test code = Abnormal 62920-5) [facility] WITHOUT [id number] 19:02:16 Test Item Value Reference Range Interpretation Comments WBC (test code = 6690-2) See_Comment [A utomated message] The system [facility] generated this result transmit corie reference range : 4.20 - 10.70 10*3/?L. The reference range was not used to interpret this result as normal/abnormal . RBC (test code = 789-8) See_Comment L [Au tomated message] The system [facility] generated this result transmit corie reference range : 4.26 - 5.52 10* 6/?L. The reference r mera was not used to interpret this result as normal/abnormal . HGB (test code = 718-7) 8.1 g/dL 12.2-16.4 L HCT (test code = 4544-3) 24.8 % 38.4-49.3 L MCH (test code = 785-6) 27.0 pg 26.1-32.7 MCV (test code = 787-2) 82.7 fL 81.7-95.6 MCHC (test code = 786-4) 32.7 g/dL 31.2-35.0 PLT (test code = 777-3) See_Comment [Au tomated message] The system [facility] generated this result transmit corie reference range : 150 - 328 10*3/?L. The reference range was not used to interpret this result as normal/abnormal . MPV (test code = 9.8 fL 9.8-13.0 89912-7) RDW-CV (test code = 21.3 % 12.1-15.4 H 788-0) RDW-SD (test code = 60.9 fL 38.5-51.6 H 53469-3) NRBC x10^3 (test code = <0.01 See_Comment [Au tomated message] 9077702874) The system [facility] generated this result transmit corie reference range : 10*3/?L. The reference range was not used to interpret this result as normal/abnormal . NRBC/100 WBC (test code See_Comment [Au tomated message] = 7652458620) The system [facility] generated this result transmit corie reference range : 0.0 - 10.0 /100 WBC s. The reference r mera was not used to interpret this result as normal/abnormal . IPF % (test code = 6328894772) Lab Interpretation (test Abnormal code = 88308-9) [facility] WITHOUT [id number] 19:02:16 Test Item Value Reference Range Interpretation Comments WBC (test code = 6690-2) See_Comment [A utomated message] The system [facility] generated this result transmit corie reference range : 4.20 - 10.70 10*3/?L. The reference range was not used to interpret this result as normal/abnormal . RBC (test code = 789-8) See_Comment L [Au tomated message] The system [facility] generated this result transmit corie reference range : 4.26 - 5.52 10* 6/?L. The reference r mera was not used to interpret this result as normal/abnormal . HGB (test code = 718-7) 8.1 g/dL 12.2-16.4 L HCT (test code = 4544-3) 24.8 % 38.4-49.3 L MCH (test code = 785-6) 27.0 pg 26.1-32.7 MCV (test code = 787-2) 82.7 fL 81.7-95.6 MCHC (test code = 786-4) 32.7 g/dL 31.2-35.0 PLT (test code = 777-3) See_Comment [Au tomated message] The system [facility] generated this result transmit corie reference range : 150 - 328 10*3/?L. The reference range was not used to interpret this result as normal/abnormal . MPV (test code = 9.8 fL 9.8-13.0 83785-7) RDW-CV (test code = 21.3 % 12.1-15.4 H 788-0) RDW-SD (test code = 60.9 fL 38.5-51.6 H 83173-0) NRBC x10^3 (test code = <0.01 See_Comment [Au tomated message] [id number]) The system [facility] generated this result transmit corie reference range : 10*3/?L. The reference range was not used to interpret this result as normal/abnormal . NRBC/100 WBC (test code See_Comment [Au tomated message] = 5487904564) The system [facility] generated this result transmit corie reference range : 0.0 - 10.0 /100 WBC s. The reference r mera was not used to interpret this result as normal/abnormal . IPF % (test code = 3726166055) Lab Interpretation (test Abnormal code = 82262-7) [facility] WITHOUT [id number] 19:02:16 Test Item Value Reference Range Interpretation Comments WBC (test code = 6690-2) See_Comment [A utomated message] The system [facility] generated this result transmit corie reference range : 4.20 - 10.70 10*3/?L. The reference range was not used to interpret this result as normal/abnormal . RBC (test code = 789-8) See_Comment L [Au tomated message] The system [facility] generated this result transmit corie reference range : 4.26 - 5.52 10* 6/?L. The reference r mera was not used to interpret this result as normal/abnormal . HGB (test code = 718-7) 8.1 g/dL 12.2-16.4 L HCT (test code = 4544-3) 24.8 % 38.4-49.3 L MCH (test code = 785-6) 27.0 pg 26.1-32.7 MCV (test code = 787-2) 82.7 fL 81.7-95.6 MCHC (test code = 786-4) 32.7 g/dL 31.2-35.0 PLT (test code = 777-3) See_Comment [Au tomated message] The system [facility] generated this result transmit corie reference range : 150 - 328 10*3/?L. The reference range was not used to interpret this result as normal/abnormal . MPV (test code = 9.8 fL 9.8-13.0 06784-2) RDW-CV (test code = 21.3 % 12.1-15.4 H 788-0) RDW-SD (test code = 60.9 fL 38.5-51.6 H 93595-8) NRBC x10^3 (test code = <0.01 See_Comment [Au tomated message] [id number]) The system [facility] generated this result transmit corie reference range : 10*3/?L. The reference range was not used to interpret this result as normal/abnormal . NRBC/100 WBC (test code See_Comment [Au tomated message] = 8840700190) The system [facility] generated this result transmit corie reference range : 0.0 - 10.0 /100 WBC s. The reference r mera was not used to interpret this result as normal/abnormal . IPF % (test code = 1233288204) Lab Interpretation (test Abnormal code = 79975-4) [facility] GLUCOSE (AUTOMATED)2022-05-12 17:41:19 Test Item Value Reference Range Interpretation Comments POCT GLU (test code = 1800554188) 175 mg/dL 70-110 H Lab Interpretation (test code = Abnormal 08137-1) [facility] GLUCOSE (AUTOMATED)2022-05-12 17:41:19 Test Item Value Reference Range Interpretation Comments POCT GLU (test code = 5394659576) 175 mg/dL 70-110 H Lab Interpretation (test code = Abnormal 42479-8) [facility] GLUCOSE (AUTOMATED)2022-05-12 17:41:19 Test Item Value Reference Range Interpretation Comments POCT GLU (test code = 4954116037) 175 mg/dL 70-110 H Lab Interpretation (test code = Abnormal 48915-1) [facility] GLUCOSE (AUTOMATED)2022-05-12 13:20:46 Test Item Value Reference Range Interpretation Comments POCT GLU (test code = 2662598222) 147 mg/dL 70-110 H Lab Interpretation (test code = Abnormal 65459-8) [facility] GLUCOSE (AUTOMATED)2022-05-12 13:20:46 Test Item Value Reference Range Interpretation Comments POCT GLU (test code = 7681209450) 147 mg/dL 70-110 H Lab Interpretation (test code = Abnormal 10637-2) [facility] GLUCOSE (AUTOMATED)2022-05-12 13:20:46 Test Item Value Reference Range Interpretation Comments POCT GLU (test code = 5179059329) 147 mg/dL 70-110 H Lab Interpretation (test code = Abnormal 05371-6) [facility] GLUCOSE (AUTOMATED)2022-05-12 13:07:06 Test Item Value Reference Range Interpretation Comments POCT GLU (test code = 1360831127) 146 mg/dL 70-110 H Lab Interpretation (test code = Abnormal 55389-2) [facility] GLUCOSE (AUTOMATED)2022-05-12 13:07:06 Test Item Value Reference Range Interpretation Comments POCT GLU (test code = 1100276764) 146 mg/dL 70-110 H Lab Interpretation (test code = Abnormal 17740-5) [facility] 13:07:06 Test Item Value Reference Range Interpretation Comments POCT GLU (test code = 9385073263) 146 mg/dL 70-110 H Lab Interpretation (test code = Abnormal 40415-1) [facility] [id number] 11:35:30 Test Item Value Reference Interpretation Comments Range TROPONIN I (test 7.370 ng/mL See_Comment H [Automated code = 6908680705) message] The system which generated this result transmitted reference range : <=0.034. The reference range was not used to interpret this result as normal/abnormal . JINNY (test code = Reference (Normal) JINNY) Range (defined by the 99th percentile reference limit): <= 0.034 ng/mL Note: Cardiac troponin begins to rise 3-4 hours after the onset of ischemia. Repeat in 4-6 hours if the sample was drawn within 3-4 hours of the onset of the symptom and found normal. Diagnosis of myocardial injury is made with acute changes in cTn concentrations with at least one serial sample above the 99th percentile upper reference limit (URL), taken together with the patient's clinical presentation. Biotin has been reported to cause a negative bias, interpret results relative to patient's use of biotin. Lab Interpretation Abnormal (test code = 79125-7) [facility] [id number] 11:35:30 Test Item Value Reference Interpretation Comments Range TROPONIN I (test 7.370 ng/mL See_Comment H [Automated code = 5925696694) message] The system which generated this result transmitted reference range : <=0.034. The reference range was not used to interpret this result as normal/abnormal . JINNY (test code = Reference (Normal) JINNY) Range (defined by the 99th percentile reference limit): <= 0.034 ng/mL Note: Cardiac troponin begins to rise 3-4 hours after the onset of ischemia. Repeat in 4-6 hours if the sample was drawn within 3-4 hours of the onset of the symptom and found normal. Diagnosis of myocardial injury is made with acute changes in cTn concentrations with at least one serial sample above the 99th percentile upper reference limit (URL), taken together with the patient's clinical presentation. Biotin has been reported to cause a negative bias, interpret results relative to patient's use of biotin. Lab Interpretation Abnormal (test code = 20739-7) [facility] [id number] 11:35:30 Test Item Value Reference Interpretation Comments Range TROPONIN I (test 7.370 ng/mL See_Comment H [Automated code = 7973686699) message] The system which generated this result transmitted reference range : <=0.034. The reference range was not used to interpret this result as normal/abnormal . JINNY (test code = Reference (Normal) JINNY) Range (defined by the 99th percentile reference limit): <= 0.034 ng/mL Note: Cardiac troponin begins to rise 3-4 hours after the onset of ischemia. Repeat in 4-6 hours if the sample was drawn within 3-4 hours of the onset of the symptom and found normal. Diagnosis of myocardial injury is made with acute changes in cTn concentrations with at least one serial sample above the 99th percentile upper reference limit (URL), taken together with the patient's clinical presentation. Biotin has been reported to cause a negative bias, interpret results relative to patient's use of biotin. Lab Interpretation Abnormal (test code = 69718-1) [facility] METABOLIC PANEL (NA, K, CL, CO2, GLUCOSE, BUN, CREATININE, CA)2022-05-12 11:24:10 Test Item Value Reference Range Interpretation Comments NA (test code = 136 mmol/L 135-145 4386046143) K (test code = 4.1 mmol/L 3.5-5.0 4517013383) CL (test code = 100 mmol/L 98-108 7390882881) CO2 TOTAL (test code = 25 mmol/L 23-31 8790204031) AGAP (test code = 2-16 0133802489) BUN (test code = 43 mg/dL 7-23 H 2827803572) GLUCOSE (test code = 142 mg/dL 70-110 H 0165739020) CREATININE (test code = 8.40 mg/dL 0.60-1.25 H 4630536863) CALCIUM (test code = 8.7 mg/dL 8.6-10.6 4151928611) eGFR (test code = mL/min/1.73m2 1445868625) JINNY (test code = JINNY) Association of Glomerular Filtration Rate (GFR) and Staging of Kidney Disease* + --+ --+ ------+| GFR (mL/min/1.73 m2) ?| With Kidney Damage ?| ?Without Kidney Damage+ --------+ --------+ +| ?>90 ?| ?Stage one ?| ? Normal ?+ ---+ ---+ -------+| ?60-89 ?| ?Stage two ?| ? Decreased GFR ? + --+ --+ ------+| ?30-59 ?| ?Stage three ?| ? Stage three ? + --+ --+ ------+| ?15-29 ?| ?Stage four ? | ? Stage four ?+ ---+ ---+ -------+| ?<15 (or dialysis) ? ?| ?Stage five ? | ? Stage five ?+ ---+ ---+ -------+ *Each stage assumes the associated GFR level has been in effect for at least three months. ?Stages 1 to 5, with or without kidney disease, indicate chronic kidney disease. Notes: Determination of stages one and two (with eGFR >59mL/min/1.73 m2) requires estimation of kidney damage for at least three months as defined by structural or functional abnormalities of the kidney, manifested by either:Pathological abnormalities or Markers of kidney damage (including abnormalities in the composition of the blood or urine or abnormalities in imaging tests). Lab Interpretation Abnormal (test code = 79405-2) [facility]24:10 Test Item Value Reference Range Interpretation Comments MAGNESIUM (test code = 6185923231) 2.0 mg/dL 1.7-2.4 Lab Interpretation (test code = Normal 77037-9) [facility] (NA, K, CL, CO2, GLUCOSE, BUN, CREATININE, CA)2022-05-12 11:24:10 Test Item Value Reference Range Interpretation Comments NA (test code = 136 mmol/L 135-145 2324120752) K (test code = 4.1 mmol/L 3.5-5.0 2643527862) CL (test code = 100 mmol/L 98-108 7533108861) CO2 TOTAL (test code = 25 mmol/L 23-31 6688596589) AGAP (test code = 2-16 3356254741) BUN (test code = 43 mg/dL 7-23 H 5407259818) GLUCOSE (test code = 142 mg/dL 70-110 H 2257671484) CREATININE (test code = 8.40 mg/dL 0.60-1.25 H 2632595725) CALCIUM (test code = 8.7 mg/dL 8.6-10.6 6807548144) eGFR (test code = mL/min/1.73m2 9919018426) JINNY (test code = JINNY) Association of Glomerular Filtration Rate (GFR) and Staging of Kidney Disease* + --+ --+ ------+| GFR (mL/min/1.73 m2) ?| With Kidney Damage ?| ?Without Kidney Damage+ --------+ --------+ +| ?>90 ?| ?Stage one ?| ? Normal ?+ ---+ ---+ -------+| ?60-89 ?| ?Stage two ?| ? Decreased GFR ? + --+ --+ ------+| ?30-59 ?| ?Stage three ?| ? Stage three ? + --+ --+ ------+| ?15-29 ?| ?Stage four ? | ? Stage four ?+ ---+ ---+ -------+| ?<15 (or dialysis) ? ?| ?Stage five ? | ? Stage five ?+ ---+ ---+ -------+ *Each stage assumes the associated GFR level has been in effect for at least three months. ?Stages 1 to 5, with or without kidney disease, indicate chronic kidney disease. Notes: Determination of stages one and two (with eGFR >59mL/min/1.73 m2) requires estimation of kidney damage for at least three months as defined by structural or functional abnormalities of the kidney, manifested by either:Pathological abnormalities or Markers of kidney damage (including abnormalities in the composition of the blood or urine or abnormalities in imaging tests). Lab Interpretation Abnormal (test code = 22258-5) [facility]24:10 Test Item Value Reference Range Interpretation Comments MAGNESIUM (test code = 6947569502) 2.0 mg/dL 1.7-2.4 Lab Interpretation (test code = Normal 70572-5) [facility] METABOLIC PANEL (NA, K, CL, CO2, GLUCOSE, BUN, CREATININE, CA)2022-05-12 11:24:10 Test Item Value Reference Range Interpretation Comments NA (test code = 136 mmol/L 135-145 3807142437) K (test code = 4.1 mmol/L 3.5-5.0 2864991726) CL (test code = 100 mmol/L 98-108 8359351275) CO2 TOTAL (test code = 25 mmol/L 23-31 2505081866) AGAP (test code = 2-16 4996167076) BUN (test code = 43 mg/dL 7-23 H 4064323048) GLUCOSE (test code = 142 mg/dL 70-110 H 8590318800) CREATININE (test code = 8.40 mg/dL 0.60-1.25 H 4447158842) CALCIUM (test code = 8.7 mg/dL 8.6-10.6 2263594638) eGFR (test code = mL/min/1.73m2 4175621306) JINNY (test code = JINNY) Association of Glomerular Filtration Rate (GFR) and Staging of Kidney Disease* + --+ --+ ------+| GFR (mL/min/1.73 m2) ?| With Kidney Damage ?| ?Without Kidney Damage+ --------+ --------+ +| ?>90 ?| ?Stage one ?| ? Normal ?+ ---+ ---+ -------+| ?60-89 ?| ?Stage two ?| ? Decreased GFR ? + --+ --+ ------+| ?30-59 ?| ?Stage three ?| ? Stage three ? + --+ --+ ------+| ?15-29 ?| ?Stage four ? | ? Stage four ?+ ---+ ---+ -------+| ?<15 (or dialysis) ? ?| ?Stage five ? | ? Stage five ?+ ---+ ---+ -------+ *Each stage assumes the associated GFR level has been in effect for at least three months. ?Stages 1 to 5, with or without kidney disease, indicate chronic kidney disease. Notes: Determination of stages one and two (with eGFR >59mL/min/1.73 m2) requires estimation of kidney damage for at least three months as defined by structural or functional abnormalities of the kidney, manifested by either:Pathological abnormalities or Markers of kidney damage (including abnormalities in the composition of the blood or urine or abnormalities in imaging tests). Lab Interpretation Abnormal (test code = 34130-8) [facility] 11[facility]24:10 Test Item Value Reference Range Interpretation Comments MAGNESIUM (test code = 8873532658) 2.0 mg/dL 1.7-2.4 Lab Interpretation (test code = Normal 67559-9) [facility] / [id number] 11:18:28 Test Item Value Reference Range Interpretation Comments PROTIME PATIENT (test See_Comment [Auto mated message] code = 5964-2) The system [employer] generated this result transmitted ref erence range: 10.1 - 1 2.6 Seconds. The re ference range was not u sed to interpret this result as normal/abnor mal. INR (test code = 6301-6) Nor mal INR <1.1; Warfarin Therap eutic range 2.0 to 3. 0 or 2.5 to 3.5, dep ending upon the indica tions. Lab Interpretation (test Normal code = 12051-6) [facility] / [id number] 11:18:28 Test Item Value Reference Range Interpretation Comments PROTIME PATIENT (test See_Comment [Auto mated message] code = 5964-2) The system [employer] generated this result transmitted ref erence range: 10.1 - 1 2.6 Seconds. The re ference range was not u sed to interpret this result as normal/abnor mal. INR (test code = 6301-6) Nor mal INR <1.1; Warfarin Therap eutic range 2.0 to 3. 0 or 2.5 to 3.5, dep ending upon the indica tions. Lab Interpretation (test Normal code = 95602-1) [facility] / [id number] 11:18:28 Test Item Value Reference Range Interpretation Comments PROTIME PATIENT (test See_Comment [Auto mated message] code = 5964-2) The system wh ich generated this result transmitted ref erence range: 10.1 - 1 2.6 Seconds. The re ference range was not u sed to interpret this result as normal/abnor mal. INR (test code = 6301-6) Nor mal INR <1.1; Warfarin Therap eutic range 2.0 to 3. 0 or 2.5 to 3.5, dep ending upon the indica tions. Lab Interpretation (test Normal code = 24936-5) [facility] WITH [id number] 11:07:49 Test Item Value Reference Range Interpretation Comments WBC (test code = See_Comment [Automated 6690-2) message] The sy stem which generated this result transmitted reference range : 4.20 - 10.70 10*3/?L. The reference range was not used to interpret this result as normal/abnormal . RBC (test code = See_Comment L [Automated 789-8) message] The sy stem which generated this result transmitted reference range : 4.26 - 5.52 10*6/?L. The reference range was not used to interpret this result as normal/abnormal . HGB (test code = 8.0 g/dL 12.2-16.4 L 718-7) HCT (test code = 24.8 % 38.4-49.3 L 4544-3) MCV (test code = 82.7 fL 81.7-95.6 787-2) MCH (test code = 26.7 pg 26.1-32.7 785-6) MCHC (test code = 32.3 g/dL 31.2-35.0 786-4) RDW-SD (test code = 59.9 fL 38.5-51.6 H 81897-9) RDW-CV (test code = 21.3 % 12.1-15.4 H 788-0) PLT (test code = See_Comment [Automated 777-3) message] The sy stem which generated this result transmitted reference range : 150 - 328 10*3/ ?L. The reference r mera was not used to interpret this result as normal/abnormal . MPV (test code = 9.5 fL 9.8-13.0 L 97550-9) NRBC/100 WBC (test See_Comment [Automat ed code = 3359113252) message] The system which generated this result transmitted reference range : 0.0 - 10.0 /100 WBCs. The refer ence range was not u sed to interpret th is result as normal/abnormal . NRBC x10^3 (test code <0.01 See_Comment [Auto mated = 4357741324) message] The s ystem which generated this result transmitted reference range : 10*3/?L. The reference range was not used to interpret this result as normal/abnormal . GRAN MAT (NEUT) % 77.1 % (test code = 770-8) IMM GRAN % (test code 0.30 % = 0166336205) LYMPH % (test code = 8.4 % 736-9) MONO % (test code = 9.7 % 5905-5) EOS % (test code = 3.9 % 713-8) BASO % (test code = 0.6 % 706-2) GRAN MAT x10^3(ANC) 7.91 10*3/uL 1.99-6.95 H (test code = 5256339017) IMM GRAN x10^3 (test 0.03 10*3/uL 0.00-0.06 code = 5412649597) LYMPH x10^3 (test code 0.86 10*3/uL 1.09-3.23 L = 731-0) MONO x10^3 (test code 0.99 10*3/uL 0.36-1.02 = 742-7) EOS x10^3 (test code = 0.40 10*3/uL 0.06-0.53 711-2) BASO x10^3 (test code 0.06 10*3/uL 0.01-0.09 = 704-7) Lab Interpretation Abnormal (test code = 87938-3) [facility] WITH [id number] 11:07:49 Test Item Value Reference Range Interpretation Comments WBC (test code = See_Comment [Automated 6490-2) message] The sy stem which generated this result transmitted reference range : 4.20 - 10.70 10*3/?L. The reference range was not used to interpret this result as normal/abnormal . RBC (test code = See_Comment L [Automated 819-8) message] The sy stem which generated this result transmitted reference range : 4.26 - 5.52 10*6/?L. The reference range was not used to interpret this result as normal/abnormal . HGB (test code = 8.0 g/dL 12.2-16.4 L 718-7) HCT (test code = 24.8 % 38.4-49.3 L 4544-3) MCV (test code = 82.7 fL 81.7-95.6 787-2) MCH (test code = 26.7 pg 26.1-32.7 785-6) MCHC (test code = 32.3 g/dL 31.2-35.0 786-4) RDW-SD (test code = 59.9 fL 38.5-51.6 H 98874-6) RDW-CV (test code = 21.3 % 12.1-15.4 H 788-0) PLT (test code = See_Comment [Automated 777-3) message] The sy stem which generated this result transmitted reference range : 150 - 328 10*3/ ?L. The reference r mera was not used to interpret this result as normal/abnormal . MPV (test code = 9.5 fL 9.8-13.0 L 16412-5) NRBC/100 WBC (test See_Comment [Automat ed code = 6134748404) message] The system which generated this result transmitted reference range : 0.0 - 10.0 /100 WBCs. The refer ence range was not u sed to interpret th is result as normal/abnormal . NRBC x10^3 (test code <0.01 See_Comment [Auto mated = 9037296669) message] The s ystem which generated this result transmitted reference range : 10*3/?L. The reference range was not used to interpret this result as normal/abnormal . GRAN MAT (NEUT) % 77.1 % (test code = 770-8) IMM GRAN % (test code 0.30 % = 8756078803) LYMPH % (test code = 8.4 % 736-9) MONO % (test code = 9.7 % 5905-5) EOS % (test code = 3.9 % 713-8) BASO % (test code = 0.6 % 706-2) GRAN MAT x10^3(ANC) 7.91 10*3/uL 1.99-6.95 H (test code = 6886058041) IMM GRAN x10^3 (test 0.03 10*3/uL 0.00-0.06 code = 3789180690) LYMPH x10^3 (test code 0.86 10*3/uL 1.09-3.23 L = 731-0) MONO x10^3 (test code 0.99 10*3/uL 0.36-1.02 = 742-7) EOS x10^3 (test code = 0.40 10*3/uL 0.06-0.53 711-2) BASO x10^3 (test code 0.06 10*3/uL 0.01-0.09 = 704-7) Lab Interpretation Abnormal (test code = 83581-2) [facility] WITH [id number] 11:07:49 Test Item Value Reference Range Interpretation Comments WBC (test code = See_Comment [Automated 6690-2) message] The sy stem which generated this result transmitted reference range : 4.20 - 10.70 10*3/?L. The reference range was not used to interpret this result as normal/abnormal . RBC (test code = See_Comment L [Automated 789-8) message] The sy stem which generated this result transmitted reference range : 4.26 - 5.52 10*6/?L. The reference range was not used to interpret this result as normal/abnormal . HGB (test code = 8.0 g/dL 12.2-16.4 L 718-7) HCT (test code = 24.8 % 38.4-49.3 L 4544-3) MCV (test code = 82.7 fL 81.7-95.6 787-2) MCH (test code = 26.7 pg 26.1-32.7 785-6) MCHC (test code = 32.3 g/dL 31.2-35.0 786-4) RDW-SD (test code = 59.9 fL 38.5-51.6 H 85520-9) RDW-CV (test code = 21.3 % 12.1-15.4 H 788-0) PLT (test code = See_Comment [Automated 777-3) message] The sy stem which generated this result transmitted reference range : 150 - 328 10*3/ ?L. The reference r mera was not used to interpret this result as normal/abnormal . MPV (test code = 9.5 fL 9.8-13.0 L 80133-1) NRBC/100 WBC (test See_Comment [Automat ed code = 4494454539) message] The system which generated this result transmitted reference range : 0.0 - 10.0 /100 WBCs. The refer ence range was not u sed to interpret th is result as normal/abnormal . NRBC x10^3 (test code <0.01 See_Comment [Auto mated = 2377103434) message] The s ystem which generated this result transmitted reference range : 10*3/?L. The reference range was not used to interpret this result as normal/abnormal . GRAN MAT (NEUT) % 77.1 % (test code = 770-8) IMM GRAN % (test code 0.30 % = 7452511787) LYMPH % (test code = 8.4 % 736-9) MONO % (test code = 9.7 % 5905-5) EOS % (test code = 3.9 % 713-8) BASO % (test code = 0.6 % 706-2) GRAN MAT x10^3(ANC) 7.91 10*3/uL 1.99-6.95 H (test code = 1579256607) IMM GRAN x10^3 (test 0.03 10*3/uL 0.00-0.06 code = 2146251666) LYMPH x10^3 (test code 0.86 10*3/uL 1.09-3.23 L = 731-0) MONO x10^3 (test code 0.99 10*3/uL 0.36-1.02 = 742-7) EOS x10^3 (test code = 0.40 10*3/uL 0.06-0.53 711-2) BASO x10^3 (test code 0.06 10*3/uL 0.01-0.09 = 704-7) Lab Interpretation Abnormal (test code = 60084-8) [facility] [id number] 04:10:46 Test Item Value Reference Interpretation Comments Range TROPONIN I (test 8.910 ng/mL See_Comment H [Automated code = 8735864409) message] The system which generated this result transmitted reference range : <=0.034. The reference range was not used to interpret this result as normal/abnormal . JINNY (test code = Reference (Normal) JINNY) Range (defined by the 99th percentile reference limit): <= 0.034 ng/mL Note: Cardiac troponin begins to rise 3-4 hours after the onset of ischemia. Repeat in 4-6 hours if the sample was drawn within 3-4 hours of the onset of the symptom and found normal. Diagnosis of myocardial injury is made with acute changes in cTn concentrations with at least one serial sample above the 99th percentile upper reference limit (URL), taken together with the patient's clinical presentation. Biotin has been reported to cause a negative bias, interpret results relative to patient's use of biotin. Lab Interpretation Abnormal (test code = 22798-9) [facility] [id number] 04:10:46 Test Item Value Reference Interpretation Comments Range TROPONIN I (test 8.910 ng/mL See_Comment H [Automated code = 9120262331) message] The system which generated this result transmitted reference range : <=0.034. The reference range was not used to interpret this result as normal/abnormal . JINNY (test code = Reference (Normal) JINNY) Range (defined by the 99th percentile reference limit): <= 0.034 ng/mL Note: Cardiac troponin begins to rise 3-4 hours after the onset of ischemia. Repeat in 4-6 hours if the sample was drawn within 3-4 hours of the onset of the symptom and found normal. Diagnosis of myocardial injury is made with acute changes in cTn concentrations with at least one serial sample above the 99th percentile upper reference limit (URL), taken together with the patient's clinical presentation. Biotin has been reported to cause a negative bias, interpret results relative to patient's use of biotin. Lab Interpretation Abnormal (test code = 17031-9) [facility] [id number] 04:10:46 Test Item Value Reference Interpretation Comments Range TROPONIN I (test 8.910 ng/mL See_Comment H [Automated code = 2839640466) message] The system which generated this result transmitted reference range : <=0.034. The reference range was not used to interpret this result as normal/abnormal . JINNY (test code = Reference (Normal) JINNY) Range (defined by the 99th percentile reference limit): <= 0.034 ng/mL Note: Cardiac troponin begins to rise 3-4 hours after the onset of ischemia. Repeat in 4-6 hours if the sample was drawn within 3-4 hours of the onset of the symptom and found normal. Diagnosis of myocardial injury is made with acute changes in cTn concentrations with at least one serial sample above the 99th percentile upper reference limit (URL), taken together with the patient's clinical presentation. Biotin has been reported to cause a negative bias, interpret results relative to patient's use of biotin. Lab Interpretation Abnormal (test code = 75814-0) [facility] WITH [id number] 02:24:01 Test Item Value Reference Range Interpretation Comments WBC (test code = See_Comment H [Automated 6690-2) message] The system which generated this result transmit corie reference range : 4.20 - 10.70 10*3/?L. The reference range was not used to interpret this result as normal/abnormal . RBC (test code = See_Comment L [Automated 789-8) message] The system which generated this result transmit corie reference range : 4.26 - 5.52 10*6/?L. The reference range was not used to interpret this result as normal/abnormal . HGB (test code = 8.3 g/dL 12.2-16.4 L 718-7) HCT (test code = 25.5 % 38.4-49.3 L 4544-3) MCV (test code = 81.2 fL 81.7-95.6 L 787-2) MCH (test code = 26.4 pg 26.1-32.7 785-6) MCHC (test code = 32.5 g/dL 31.2-35.0 786-4) RDW-SD (test code = 59.7 fL 38.5-51.6 H 85948-6) RDW-CV (test code = 21.1 % 12.1-15.4 H 788-0) PLT (test code = See_Comment [Automated 777-3) message] The system which generated this result transmit corie reference range : 150 - 328 10*3/ ?L. The reference range was not u sed to interpret th is result as normal/abnormal . MPV (test code = 9.5 fL 9.8-13.0 L 59925-2) NRBC/100 WBC (test See_Comment [Automat ed code = 9077206329) message] The system which generated this result transmit corie reference range : 0.0 - 10.0 /100 WBCs. The reference range was not used to interpret this result as normal/abnormal . NRBC x10^3 (test code See_Comment [Auto mated = 3235719343) message] The system which generated this result transmit corie reference range : 10*3/?L. The reference range was not used to interpret this result as normal/abnormal . GRAN MAT (NEUT) % 83.6 % (test code = 770-8) IMM GRAN % (test code 0.50 % = 2315724789) LYMPH % (test code = 5.7 % 736-9) MONO % (test code = 7.4 % 5905-5) EOS % (test code = 2.5 % 713-8) BASO % (test code = 0.3 % 706-2) GRAN MAT x10^3(ANC) 10.90 10*3/uL 1.99-6.95 H (test code = 9809070302) IMM GRAN x10^3 (test 0.07 10*3/uL 0.00-0.06 H code = 3828460996) LYMPH x10^3 (test code 0.74 10*3/uL 1.09-3.23 L = 731-0) MONO x10^3 (test code 0.96 10*3/uL 0.36-1.02 = 742-7) EOS x10^3 (test code = 0.32 10*3/uL 0.06-0.53 711-2) BASO x10^3 (test code 0.04 10*3/uL 0.01-0.09 = 704-7) Lab Interpretation Abnormal (test code = 06246-4) [facility] WITH [id number] 02:24:01 Test Item Value Reference Range Interpretation Comments WBC (test code = See_Comment H [Automated 6690-2) message] The system which generated this result transmit corie reference range : 4.20 - 10.70 10*3/?L. The reference range was not used to interpret this result as normal/abnormal . RBC (test code = See_Comment L [Automated 789-8) message] The system which generated this result transmit corie reference range : 4.26 - 5.52 10*6/?L. The reference range was not used to interpret this result as normal/abnormal . HGB (test code = 8.3 g/dL 12.2-16.4 L 718-7) HCT (test code = 25.5 % 38.4-49.3 L 4544-3) MCV (test code = 81.2 fL 81.7-95.6 L 787-2) MCH (test code = 26.4 pg 26.1-32.7 785-6) MCHC (test code = 32.5 g/dL 31.2-35.0 786-4) RDW-SD (test code = 59.7 fL 38.5-51.6 H 07142-2) RDW-CV (test code = 21.1 % 12.1-15.4 H 788-0) PLT (test code = See_Comment [Automated 777-3) message] The system which generated this result transmit corie reference range : 150 - 328 10*3/ ?L. The reference range was not u sed to interpret th is result as normal/abnormal . MPV (test code = 9.5 fL 9.8-13.0 L 47337-8) NRBC/100 WBC (test See_Comment [Automat ed code = 4269347943) message] The system which generated this result transmit corie reference range : 0.0 - 10.0 /100 WBCs. The reference range was not used to interpret this result as normal/abnormal . NRBC x10^3 (test code See_Comment [Auto mated = 1373191192) message] The system which generated this result transmit corie reference range : 10*3/?L. The reference range was not used to interpret this result as normal/abnormal . GRAN MAT (NEUT) % 83.6 % (test code = 770-8) IMM GRAN % (test code 0.50 % = 7987041607) LYMPH % (test code = 5.7 % 736-9) MONO % (test code = 7.4 % 5905-5) EOS % (test code = 2.5 % 713-8) BASO % (test code = 0.3 % 706-2) GRAN MAT x10^3(ANC) 10.90 10*3/uL 1.99-6.95 H (test code = 4619747932) IMM GRAN x10^3 (test 0.07 10*3/uL 0.00-0.06 H code = 1073918686) LYMPH x10^3 (test code 0.74 10*3/uL 1.09-3.23 L = 731-0) MONO x10^3 (test code 0.96 10*3/uL 0.36-1.02 = 742-7) EOS x10^3 (test code = 0.32 10*3/uL 0.06-0.53 711-2) BASO x10^3 (test code 0.04 10*3/uL 0.01-0.09 = 704-7) Lab Interpretation Abnormal (test code = 83371-6) [facility] WITH [id number] 02:24:01 Test Item Value Reference Range Interpretation Comments WBC (test code = See_Comment H [Automated 6690-2) message] The system which generated this result transmit corie reference range : 4.20 - 10.70 10*3/?L. The reference range was not used to interpret this result as normal/abnormal . RBC (test code = See_Comment L [Automated 789-8) message] The system which generated this result transmit corie reference range : 4.26 - 5.52 10*6/?L. The reference range was not used to interpret this result as normal/abnormal . HGB (test code = 8.3 g/dL 12.2-16.4 L 718-7) HCT (test code = 25.5 % 38.4-49.3 L 4544-3) MCV (test code = 81.2 fL 81.7-95.6 L 787-2) MCH (test code = 26.4 pg 26.1-32.7 785-6) MCHC (test code = 32.5 g/dL 31.2-35.0 786-4) RDW-SD (test code = 59.7 fL 38.5-51.6 H 05072-9) RDW-CV (test code = 21.1 % 12.1-15.4 H 788-0) PLT (test code = See_Comment [Automated 777-3) message] The system which generated this result transmit corie reference range : 150 - 328 10*3/ ?L. The reference range was not u sed to interpret th is result as normal/abnormal . MPV (test code = 9.5 fL 9.8-13.0 L 14953-9) NRBC/100 WBC (test See_Comment [Automat ed code = 2603825683) message] The system which generated this result transmit corie reference range : 0.0 - 10.0 /100 WBCs. The reference range was not used to interpret this result as normal/abnormal . NRBC x10^3 (test code See_Comment [Auto mated = 6945487860) message] The system which generated this result transmit corie reference range : 10*3/?L. The reference range was not used to interpret this result as normal/abnormal . GRAN MAT (NEUT) % 83.6 % (test code = 770-8) IMM GRAN % (test code 0.50 % = 4414586568) LYMPH % (test code = 5.7 % 736-9) MONO % (test code = 7.4 % 5905-5) EOS % (test code = 2.5 % 713-8) BASO % (test code = 0.3 % 706-2) GRAN MAT x10^3(ANC) 10.90 10*3/uL 1.99-6.95 H (test code = 5675544232) IMM GRAN x10^3 (test 0.07 10*3/uL 0.00-0.06 H code = 9020205015) LYMPH x10^3 (test code 0.74 10*3/uL 1.09-3.23 L = 731-0) MONO x10^3 (test code 0.96 10*3/uL 0.36-1.02 = 742-7) EOS x10^3 (test code = 0.32 10*3/uL 0.06-0.53 711-2) BASO x10^3 (test code 0.04 10*3/uL 0.01-0.09 = 704-7) Lab Interpretation Abnormal (test code = 75457-4) [facility] GLUCOSE (AUTOMATED)2022-05-12 00:26:58 Test Item Value Reference Range Interpretation Comments POCT GLU (test code = 128 mg/dL 70-110 H Notifi ed Provider [id number]) Lab Interpretation (test Abnormal code = 78634-4) [facility] GLUCOSE (AUTOMATED)2022-05-12 00:26:58 Test Item Value Reference Range Interpretation Comments POCT GLU (test code = 128 mg/dL 70-110 H Notifi ed Provider [id number]) Lab Interpretation (test Abnormal code = 29058-6) [facility] GLUCOSE (AUTOMATED)2022-05-12 00:26:58 Test Item Value Reference Range Interpretation Comments POCT GLU (test code = 128 mg/dL 70-110 H Notifi ed Provider [id number]) Lab Interpretation (test Abnormal code = 96880-5) [facility]11 21:18:52 Test Item Value Reference Range Interpretation Comments HBsAg Semi-Quantitative (test code = Negative Negative 5195-3) [facility] B Surface Antigen (HBsAg)2022-05-11 21:18:52 Test Item Value Reference Range Interpretation Comments HBsAg Semi-Quantitative (test code = Negative Negative 5195-3) [facility] B Surface Antigen (HBsAg)2022-05-11 21:18:52 Test Item Value Reference Range Interpretation Comments HBsAg Semi-Quantitative (test code = Negative Negative 5195-3) [facility] GLUCOSE (AUTOMATED)2022-05-11 20:42:32 Test Item Value Reference Range Interpretation Comments POCT GLU (test code = 8086363870) 113 mg/dL 70-110 H Lab Interpretation (test code = Abnormal 91748-0) [facility] GLUCOSE (AUTOMATED)2022-05-11 20:42:32 Test Item Value Reference Range Interpretation Comments POCT GLU (test code = 6575682044) 113 mg/dL 70-110 H Lab Interpretation (test code = Abnormal 38503-0) [facility] GLUCOSE (AUTOMATED)2022-05-11 20:42:32 Test Item Value Reference Range Interpretation Comments POCT GLU (test code = 4190037666) 113 mg/dL 70-110 H Lab Interpretation (test code = Abnormal 35870-5) [facility] Packed RBC (in units), 1 Units 2022-05-11 17:45:52 Test Item Value Reference Range Interpretation Comments Cross Match Result Compatible (test code = 4409) ISBT Blood Type Code (test code = 527141) Unit Blood Type (test A Neg code = 4410) Unit Number (test [id number] code = 4411) Blood Expiration Date & Time (test code = 208401) Status Information Issued (test code = 4412) Product Red Blood Cells Identification (test code = 4413) Product Code (test [id number] Performed at [facility] code = 4414) Laboratory Services - [facility] Blood [address] [place] [address]Toll Free: [phone] A No. [id number] [facility] Packed RBC (in units), 1 Units 2022-05-11 17:45:52 Test Item Value Reference Range Interpretation Comments Cross Match Result Compatible (test code = 4409) ISBT Blood Type Code (test code = 765741) Unit Blood Type (test A Neg code = 4410) Unit Number (test [id number] code = 4411) Blood Expiration Date & Time (test code = 801384) Status Information Issued (test code = 4412) Product Red Blood Cells Identification (test code = 4413) Product Code (test [id number] Performed at [facility] code = 4414) Laboratory Services - [facility] Blood [address] [place] [address]Hsfy Free: [phone] A No. [id number] [facility] Packed RBC (in units), 1 Units 2022-05-11 17:45:52 Test Item Value Reference Range Interpretation Comments Cross Match Result Compatible (test code = 4409) ISBT Blood Type Code (test code = 412944) Unit Blood Type (test A Neg code = 4410) Unit Number (test [id number] code = 4411) Blood Expiration Date & Time (test code = 220490) Status Information Issued (test code = 4412) Product Red Blood Cells Identification (test code = 4413) Product Code (test [id number] Performed at [facility] code = 4414) Laboratory Services - [facility] Blood [address] [place] [address]Vawj Free: [phone] A No. [id number] [facility] GLUCOSE (AUTOMATED)2022-05-11 17:13:26 Test Item Value Reference Range Interpretation Comments POCT GLU (test code = 0667139148) 227 mg/dL 70-110 H Lab Interpretation (test code = Abnormal 58231-1) [facility] GLUCOSE (AUTOMATED)2022-05-11 17:13:26 Test Item Value Reference Range Interpretation Comments POCT GLU (test code = 4151766697) 227 mg/dL 70-110 H Lab Interpretation (test code = Abnormal 78950-9) [facility] GLUCOSE (AUTOMATED)2022-05-11 17:13:26 Test Item Value Reference Range Interpretation Comments POCT GLU (test code = 1361575557) 227 mg/dL 70-110 H Lab Interpretation (test code = Abnormal 67938-9) [facility] INVESTIGATION [id number] 16:31:01 Test Item Value Reference Range Interpretation Comments ABO & RH (test code A Negative Performe d at [facility] = 20) Laboratory Serv [facility] Blood [address] [place], [place] [address]Toll Free: [phone] 266CLIA No. [id number] [facility] INVESTIGATION [id number] 16:31:01 Test Item Value Reference Range Interpretation Comments ABO & RH (test code A Negative Performe d at [facility] = 20) Laboratory Serv [facility] [address] [place], [place] [address] 4Toll Free: [phone] 266CLIA No. [id number] [facility] INVESTIGATION [id number] 16:31:01 Test Item Value Reference Range Interpretation Comments ABO & RH (test code A Negative Performe d at [facility] = 20) Laboratory [facility] Blood [address] [place], [place] [address]Toll Free: [phone] 266CLIA No. [id number] [facility] and Screen - ONCE [id number] 15:20:27 Test Item Value Reference Range Interpretation Comments IAT (test code = Negative Performed a t [facility] 1185) Laboratory [facility] Blood [address] [facility] [place] [address]Edtd Free: [phone] A No. [id number] [facility] and Screen - ONCE [id number] 15:20:27 Test Item Value Reference Range Interpretation Comments IAT (test code = Negative Performed a t [facility] 1185) Laboratory [facility] Blood X[address] [facility] [place] [address]Cgeu Free: [phone] A No. [id number] [facility] and Screen - ONCE [id number] 15:20:27 Test Item Value Reference Range Interpretation Comments IAT (test code = Negative Performed a t [facility] 1185) Laboratory [facility] Blood [address] [facility] [place] [address]Hyfn Free: [phone] A No. [id number] [facility] [id number] 15:01:29 Test Item Value Reference Interpretation Comments Range TROPONIN I (test 7.230 ng/mL See_Comment H [Automated code = 7663353220) message] The system which generated this result transmitted reference range : <=0.034. The reference range was not used to interpret this result as normal/abnormal . JINNY (test code = Reference (Normal) JINNY) Range (defined by the 99th percentile reference limit): <= 0.034 ng/mL Note: Cardiac troponin begins to rise 3-4 hours after the onset of ischemia. Repeat in 4-6 hours if the sample was drawn within 3-4 hours of the onset of the symptom and found normal. Diagnosis of myocardial injury is made with acute changes in cTn concentrations with at least one serial sample above the 99th percentile upper reference limit (URL), taken together with the patient's clinical presentation. Biotin has been reported to cause a negative bias, interpret results relative to patient's use of biotin. Lab Interpretation Abnormal (test code = 71529-8) [facility] [id number] 15:01:29 Test Item Value Reference Interpretation Comments Range TROPONIN I (test 7.230 ng/mL See_Comment H [Automated code = 7609942383) message] The system which generated this result transmitted reference range : <=0.034. The reference range was not used to interpret this result as normal/abnormal . JINNY (test code = Reference (Normal) JINNY) Range (defined by the 99th percentile reference limit): <= 0.034 ng/mL Note: Cardiac troponin begins to rise 3-4 hours after the onset of ischemia. Repeat in 4-6 hours if the sample was drawn within 3-4 hours of the onset of the symptom and found normal. Diagnosis of myocardial injury is made with acute changes in cTn concentrations with at least one serial sample above the 99th percentile upper reference limit (URL), taken together with the patient's clinical presentation. Biotin has been reported to cause a negative bias, interpret results relative to patient's use of biotin. Lab Interpretation Abnormal (test code = 02654-1) [facility] [id number] 15:01:29 Test Item Value Reference Interpretation Comments Range TROPONIN I (test 7.230 ng/mL See_Comment H [Automated code = 3124259862) message] The system which generated this result transmitted reference range : <=0.034. The reference range was not used to interpret this result as normal/abnormal . JINNY (test code = Reference (Normal) JINNY) Range (defined by the 99th percentile reference limit): <= 0.034 ng/mL Note: Cardiac troponin begins to rise 3-4 hours after the onset of ischemia. Repeat in 4-6 hours if the sample was drawn within 3-4 hours of the onset of the symptom and found normal. Diagnosis of myocardial injury is made with acute changes in cTn concentrations with at least one serial sample above the 99th percentile upper reference limit (URL), taken together with the patient's clinical presentation. Biotin has been reported to cause a negative bias, interpret results relative to patient's use of biotin. Lab Interpretation Abnormal (test code = 07711-1) [facility] INVESTIGATION [id number] 14:53:50 Test Item Value Reference Range Interpretation Comments ABO & RH (test code A Negative Performe d at [facility] = 20) Laboratory Serv [facility] Blood [address] [place] [address] 4Toll Free: [phone] 266CLIA No. [id number] [facility] INVESTIGATION [id number] 14:53:50 Test Item Value Reference Range Interpretation Comments ABO & RH (test code A Negative Performe d at [facility] = 20) Laboratory Serv [facility] Blood [address] [place] [address] 4Toll Free: [phone] 266CLIA No. [id number] [facility] INVESTIGATION [id number] 14:53:50 Test Item Value Reference Range Interpretation Comments ABO & RH (test code A Negative Performe d at [facility] = 20) Laboratory Serv [facility] Blood [address] [place], [place] [address] 4Toll Free: [phone] 266CLIA No. [id number] [facility] [id number] 14:49:27 Test Item Value Reference Range Interpretation Comments APTT Patient (test code = See_Comment [ Automated message] 3173-2) The system [employer] h generated this result transmitted ref erence range: 26 - 36 Seconds. The re ference range was not u sed to interpret this result as normal/abnor mal. Lab Interpretation (test Normal code = 64787-1) [facility] / [id number] 14:49:27 Test Item Value Reference Range Interpretation Comments PROTIME PATIENT (test See_Comment [Auto mated message] code = 5964-2) The system [employer] ich generated this result transmitted ref erence range: 10.1 - 1 2.6 Seconds. The re ference range was not u sed to interpret this result as normal/abnor mal. INR (test code = 6301-6) Nor mal INR <1.1; Warfarin Therap eutic range 2.0 to 3. 0 or 2.5 to 3.5, dep ending upon the indica tions. Lab Interpretation (test Normal code = 40528-6) [facility] 14:49:27 Test Item Value Reference Range Interpretation Comments Fibrinogen (test code = 3082059458) 337 mg/dL 167-453 Lab Interpretation (test code = Normal 60867-3) [facility] [id number] 14:49:27 Test Item Value Reference Range Interpretation Comments APTT Patient (test code = See_Comment [ Automated message] 5263-2) The system [facility] generated this result transmitted ref erence range: 26 - 36 Seconds. The re ference range was not u sed to interpret this result as normal/abnor mal. Lab Interpretation (test Normal code = 98503-7) [facility] / [id number] 14:49:27 Test Item Value Reference Range Interpretation Comments PROTIME PATIENT (test See_Comment [Auto mated message] code = 5964-2) The system [employer] generated this result transmitted ref erence range: 10.1 - 1 2.6 Seconds. The re ference range was not u sed to interpret this result as normal/abnor mal. INR (test code = 6301-6) Nor mal INR <1.1; Warfarin Therap eutic range 2.0 to 3. 0 or 2.5 to 3.5, dep ending upon the indica tions. Lab Interpretation (test Normal code = 10329-6) [facility] 14:49:27 Test Item Value Reference Range Interpretation Comments Fibrinogen (test code = 3158514344) 337 mg/dL 167-453 Lab Interpretation (test code = Normal 49998-7) [facility] [id number] 14:49:27 Test Item Value Reference Range Interpretation Comments APTT Patient (test code = See_Comment [ Automated message] 3173-2) The system [facility] generated this result transmitted ref erence range: 26 - 36 Seconds. The re ference range was not u sed to interpret this result as normal/abnor mal. Lab Interpretation (test Normal code = 48615-0) [facility] / [id number] 14:49:27 Test Item Value Reference Range Interpretation Comments PROTIME PATIENT (test See_Comment [Auto mated message] code = 5964-2) The system wh ich generated this result transmitted ref erence range: 10.1 - 1 2.6 Seconds. The re ference range was not u sed to interpret this result as normal/abnor mal. INR (test code = 6301-6) Nor mal INR <1.1; Warfarin Therap eutic range 2.0 to 3. 0 or 2.5 to 3.5, dep ending upon the indica tions. Lab Interpretation (test Normal code = 59912-5) [facility] 14:49:27 Test Item Value Reference Range Interpretation Comments Fibrinogen (test code = 3719982581) 337 mg/dL 167-453 Lab Interpretation (test code = Normal 15505-0) [facility] Center[facility] WITH [id number] 14:36:05 Test Item Value Reference Range Interpretation Comments WBC (test code = See_Comment [Automated 6690-2) message] The sy stem which generated this result transmitted reference range : 4.20 - 10.70 10*3/?L. The reference range was not used to interpret this result as normal/abnormal . RBC (test code = See_Comment L [Automated 789-8) message] The sy stem which generated this result transmitted reference range : 4.26 - 5.52 10*6/?L. The reference range was not used to interpret this result as normal/abnormal . HGB (test code = 6.8 g/dL 12.2-16.4 L 718-7) HCT (test code = 20.9 % 38.4-49.3 L 4544-3) MCV (test code = 81.3 fL 81.7-95.6 L 787-2) MCH (test code = 26.5 pg 26.1-32.7 785-6) MCHC (test code = 32.5 g/dL 31.2-35.0 786-4) RDW-SD (test code = 61.1 fL 38.5-51.6 H 83261-9) RDW-CV (test code = 21.7 % 12.1-15.4 H 788-0) PLT (test code = See_Comment [Automated 777-3) message] The sy stem which generated this result transmitted reference range : 150 - 328 10*3/ ?L. The reference r mera was not used to interpret this result as normal/abnormal . MPV (test code = 9.3 fL 9.8-13.0 L 37888-0) NRBC/100 WBC (test See_Comment [Automat ed code = 3627739333) message] The system which generated this result transmitted reference range : 0.0 - 10.0 /100 WBCs. The refer ence range was not u sed to interpret th is result as normal/abnormal . NRBC x10^3 (test code See_Comment [Auto mated = 4660998918) message] The s ystem which generated this result transmitted reference range : 10*3/?L. The reference range was not used to interpret this result as normal/abnormal . GRAN MAT (NEUT) % 78.4 % (test code = 770-8) IMM GRAN % (test code 0.30 % = 8189832372) LYMPH % (test code = 9.4 % 736-9) MONO % (test code = 7.6 % 5905-5) EOS % (test code = 3.8 % 713-8) BASO % (test code = 0.5 % 706-2) GRAN MAT x10^3(ANC) 8.20 10*3/uL 1.99-6.95 H (test code = 2551827044) IMM GRAN x10^3 (test 0.03 10*3/uL 0.00-0.06 code = 6682606737) LYMPH x10^3 (test code 0.98 10*3/uL 1.09-3.23 L = 731-0) MONO x10^3 (test code 0.79 10*3/uL 0.36-1.02 = 742-7) EOS x10^3 (test code = 0.40 10*3/uL 0.06-0.53 711-2) BASO x10^3 (test code 0.05 10*3/uL 0.01-0.09 = 704-7) Lab Interpretation Abnormal (test code = 62125-0) [facility] WITH [id number] 14:36:05 Test Item Value Reference Range Interpretation Comments WBC (test code = See_Comment [Automated 6690-2) message] The sy stem which generated this result transmitted reference range : 4.20 - 10.70 10*3/?L. The reference range was not used to interpret this result as normal/abnormal . RBC (test code = See_Comment L [Automated 789-8) message] The sy stem which generated this result transmitted reference range : 4.26 - 5.52 10*6/?L. The reference range was not used to interpret this result as normal/abnormal . HGB (test code = 6.8 g/dL 12.2-16.4 L 718-7) HCT (test code = 20.9 % 38.4-49.3 L 4544-3) MCV (test code = 81.3 fL 81.7-95.6 L 787-2) MCH (test code = 26.5 pg 26.1-32.7 785-6) MCHC (test code = 32.5 g/dL 31.2-35.0 786-4) RDW-SD (test code = 61.1 fL 38.5-51.6 H 15206-0) RDW-CV (test code = 21.7 % 12.1-15.4 H 788-0) PLT (test code = See_Comment [Automated 777-3) message] The sy stem which generated this result transmitted reference range : 150 - 328 10*3/ ?L. The reference r mera was not used to interpret this result as normal/abnormal . MPV (test code = 9.3 fL 9.8-13.0 L 14856-1) NRBC/100 WBC (test See_Comment [Automat ed code = 8777371459) message] The system which generated this result transmitted reference range : 0.0 - 10.0 /100 WBCs. The refer ence range was not u sed to interpret th is result as normal/abnormal . NRBC x10^3 (test code See_Comment [Auto mated = 3528273329) message] The s ystem which generated this result transmitted reference range : 10*3/?L. The reference range was not used to interpret this result as normal/abnormal . GRAN MAT (NEUT) % 78.4 % (test code = 770-8) IMM GRAN % (test code 0.30 % = 5409078260) LYMPH % (test code = 9.4 % 736-9) MONO % (test code = 7.6 % 5905-5) EOS % (test code = 3.8 % 713-8) BASO % (test code = 0.5 % 706-2) GRAN MAT x10^3(ANC) 8.20 10*3/uL 1.99-6.95 H (test code = 9028531042) IMM GRAN x10^3 (test 0.03 10*3/uL 0.00-0.06 code = 6000955267) LYMPH x10^3 (test code 0.98 10*3/uL 1.09-3.23 L = 731-0) MONO x10^3 (test code 0.79 10*3/uL 0.36-1.02 = 742-7) EOS x10^3 (test code = 0.40 10*3/uL 0.06-0.53 711-2) BASO x10^3 (test code 0.05 10*3/uL 0.01-0.09 = 704-7) Lab Interpretation Abnormal (test code = 01378-4) [facility] WITH [id number] 14:36:05 Test Item Value Reference Range Interpretation Comments WBC (test code = See_Comment [Automated 9990-2) message] The sy stem which generated this result transmitted reference range : 4.20 - 10.70 10*3/?L. The reference range was not used to interpret this result as normal/abnormal . RBC (test code = See_Comment L [Automated 549-8) message] The sy stem which generated this result transmitted reference range : 4.26 - 5.52 10*6/?L. The reference range was not used to interpret this result as normal/abnormal . HGB (test code = 6.8 g/dL 12.2-16.4 L 718-7) HCT (test code = 20.9 % 38.4-49.3 L 4544-3) MCV (test code = 81.3 fL 81.7-95.6 L 787-2) MCH (test code = 26.5 pg 26.1-32.7 785-6) MCHC (test code = 32.5 g/dL 31.2-35.0 786-4) RDW-SD (test code = 61.1 fL 38.5-51.6 H 51786-3) RDW-CV (test code = 21.7 % 12.1-15.4 H 788-0) PLT (test code = See_Comment [Automated 777-3) message] The sy stem which generated this result transmitted reference range : 150 - 328 10*3/ ?L. The reference r mera was not used to interpret this result as normal/abnormal . MPV (test code = 9.3 fL 9.8-13.0 L 65200-0) NRBC/100 WBC (test See_Comment [Automat ed code = 5767404166) message] The system which generated this result transmitted reference range : 0.0 - 10.0 /100 WBCs. The refer ence range was not u sed to interpret th is result as normal/abnormal . NRBC x10^3 (test code See_Comment [Auto mated = 7165186607) message] The s ystem which generated this result transmitted reference range : 10*3/?L. The reference range was not used to interpret this result as normal/abnormal . GRAN MAT (NEUT) % 78.4 % (test code = 770-8) IMM GRAN % (test code 0.30 % = 0053022285) LYMPH % (test code = 9.4 % 736-9) MONO % (test code = 7.6 % 5905-5) EOS % (test code = 3.8 % 713-8) BASO % (test code = 0.5 % 706-2) GRAN MAT x10^3(ANC) 8.20 10*3/uL 1.99-6.95 H (test code = 0159546763) IMM GRAN x10^3 (test 0.03 10*3/uL 0.00-0.06 code = 8840208152) LYMPH x10^3 (test code 0.98 10*3/uL 1.09-3.23 L = 731-0) MONO x10^3 (test code 0.79 10*3/uL 0.36-1.02 = 742-7) EOS x10^3 (test code = 0.40 10*3/uL 0.06-0.53 711-2) BASO x10^3 (test code 0.05 10*3/uL 0.01-0.09 = 704-7) Lab Interpretation Abnormal (test code = 56702-0) [facility]27 Test Item Value Reference Range Interpretation Comments Height (test code = in 5231451625) Weight (test code = lbs 7027445893) Systolic BP (test code = mmHg 2574471806) Diastolic BP (test code = mmHg 6127205167) Heart Rate (test code = bpm 4690708794) EF(Teich) (test code = 42.80 % 4203985197) LVIDD (test code = 5.00 cm 5722881148) LVIDS (test code = 3.90 cm 9596109980) IVS (test code = 1.65 cm 6906701231) LVPWD (test code = 1.89 cm 8466475708) LVOT diameter (test code 2.10 cm = 5047944521) FS (test code = 21 % 9401836444) MV Peak E Antoine (test code 101.0 cm/s = 7835354942) MV Peak A Antoine (test code 77.1 cm/s = 2678985444) E/A ratio (test code = ratio 7291021593) E wave decelartion time 0.15 s (test code = 7646710389) LA Volume Index (BP) 36.4 mL/m2 (test code = 9526150177) LA volume (BP) (test code 85.1 mL = 4197961426) LVOT peak antoine (test code 113.0 cm/s = 7350555997) BSA (test code = 2.34 m2 9989968915) LA size (test code = 5.0 cm 6473629718) LAV(MOD-sp2) (test code = 76.00 mL 2458994513) LAV(MOD-sp4) (test code = 89.30 mL 7121373161) Tapse (test code = 2.42 cm 5903786358) Ao peak antoine (test code = 147.0 cm/s 4165055290) AV LVOT peak gradient mmHg (test code = 7956293778) AV area peak antoine (test 2.7 cm2 code = 3545109560) AV Doppler antoine index VTI ratio (test code = 2947053719) Ao max PG (test code = 8.60 mm[Hg] 3186860377) MV Prop V (test code = 69.50 cm/s 7654051349) TR Peak Antoine (test code = 247.3 cm/s 9377334275) Triscuspid Valve mmHg Regurgitation Peak Gradient (test code = 5783292765) Ao root annulus (test 3.5 cm code = 8137789563) Ao root diam (test code = 3.50 cm 7177899568) AV peak gradient (test mmHg code = 1169916136) Aortic root (test code = 3.5 cm 5445345888) PW (test code = 1.89 cm 0.6-1.9 1425813072) EF - 2D (test code = 42.80 % 42629579) Interventricular Septum 1.65 cm Diastolic Thickness by 2D (test code = 7079393) Radiology Study observation (narrative) (test code = 62860-8) JINNY (test code = JINNY) ?Left?Ventricle: Left ventricle is mildly dilated. There is mild concentric hypertrophy. Mild global hypokinesis present with akinetic apex. Mildly reduced systolic function with a visually estimated EF of 40 - 45%. There is impaired relaxation. ?Right?Ventricle: Right ventricle is normal in size and function. [facility] 11:50:27 Test Item Value Reference Range Interpretation Comments Height (test code = in 5082877850) Weight (test code = lbs 3715974364) Systolic BP (test code = mmHg 7752126988) Diastolic BP (test code = mmHg 5860918799) Heart Rate (test code = bpm 1105766186) EF(Teich) (test code = 42.80 % 3739193659) LVIDD (test code = 5.00 cm 1627339410) LVIDS (test code = 3.90 cm 0198676877) IVS (test code = 1.65 cm 9214070542) LVPWD (test code = 1.89 cm 9799527794) LVOT diameter (test code 2.10 cm = 4161698123) FS (test code = 21 % 0403734943) MV Peak E Antoine (test code 101.0 cm/s = 8602307887) MV Peak A Antoine (test code 77.1 cm/s = 7776743506) E/A ratio (test code = ratio 6630805988) E wave decelartion time 0.15 s (test code = 5994207562) LA Volume Index (BP) 36.4 mL/m2 (test code = 9161469918) LA volume (BP) (test code 85.1 mL = 1742157103) LVOT peak antoine (test code 113.0 cm/s = 3062444383) BSA (test code = 2.34 m2 1708419857) LA size (test code = 5.0 cm 1771348037) LAV(MOD-sp2) (test code = 76.00 mL 5143905749) LAV(MOD-sp4) (test code = 89.30 mL 0511460303) Tapse (test code = 2.42 cm 9784308920) Ao peak antoine (test code = 147.0 cm/s 2701409023) AV LVOT peak gradient mmHg (test code = 2585396486) AV area peak antoine (test 2.7 cm2 code = 3537919477) AV Doppler antoine index VTI ratio (test code = 4932989464) Ao max PG (test code = 8.60 mm[Hg] 7980987452) MV Prop V (test code = 69.50 cm/s 5816874199) TR Peak Antoine (test code = 247.3 cm/s 4115260587) Triscuspid Valve mmHg Regurgitation Peak Gradient (test code = 1603509773) Ao root annulus (test 3.5 cm code = 0165036776) Ao root diam (test code = 3.50 cm 3504451258) AV peak gradient (test mmHg code = 7893283977) Aortic root (test code = 3.5 cm 8613168614) PW (test code = 1.89 cm 0.6-1.9 9818981675) EF - 2D (test code = 42.80 % 24380957) Interventricular Septum 1.65 cm Diastolic Thickness by 2D (test code = 9029114) Radiology Study observation (narrative) (test code = 07408-5) JINNY (test code = JINNY) ?Left?Ventricle: Left ventricle is mildly dilated. There is mild concentric hypertrophy. Mild global hypokinesis present with akinetic apex. Mildly reduced systolic function with a visually estimated EF of 40 - 45%. There is impaired relaxation. ?Right?Ventricle: Right ventricle is normal in size and function. [facility] 11:50:27 Test Item Value Reference Range Interpretation Comments Height (test code = in 4799695178) Weight (test code = lbs 4408588547) Systolic BP (test code = mmHg 7045185945) Diastolic BP (test code = mmHg 4855411889) Heart Rate (test code = bpm 9795744797) EF(Teich) (test code = 42.80 % 0628756868) LVIDD (test code = 5.00 cm 6613733197) LVIDS (test code = 3.90 cm 3628972888) IVS (test code = 1.65 cm 5012811716) LVPWD (test code = 1.89 cm 2999338997) LVOT diameter (test code 2.10 cm = 4349034757) FS (test code = 21 % 3999878224) MV Peak E Antoine (test code 101.0 cm/s = 0600615299) MV Peak A Antoine (test code 77.1 cm/s = 4472628522) E/A ratio (test code = ratio 9278403094) E wave decelartion time 0.15 s (test code = 6751969398) LA Volume Index (BP) 36.4 mL/m2 (test code = 9116839405) LA volume (BP) (test code 85.1 mL = 1453880577) LVOT peak antoine (test code 113.0 cm/s = 4151833892) BSA (test code = 2.34 m2 7837682517) LA size (test code = 5.0 cm 0021243841) LAV(MOD-sp2) (test code = 76.00 mL 4367522475) LAV(MOD-sp4) (test code = 89.30 mL 7837311491) Tapse (test code = 2.42 cm 1672971819) Ao peak antoine (test code = 147.0 cm/s 9078718647) AV LVOT peak gradient mmHg (test code = 8886093845) AV area peak antoine (test 2.7 cm2 code = 0093057996) AV Doppler antoine index VTI ratio (test code = 2188971256) Ao max PG (test code = 8.60 mm[Hg] 0462897946) MV Prop V (test code = 69.50 cm/s 1480208875) TR Peak Antoine (test code = 247.3 cm/s 1557778562) Triscuspid Valve mmHg Regurgitation Peak Gradient (test code = 6162315331) Ao root annulus (test 3.5 cm code = 1623943816) Ao root diam (test code = 3.50 cm 5180710066) AV peak gradient (test mmHg code = 4128035479) Aortic root (test code = 3.5 cm 2663194020) PW (test code = 1.89 cm 0.6-1.9 4672226257) EF - 2D (test code = 42.80 % 82155333) Interventricular Septum 1.65 cm Diastolic Thickness by 2D (test code = 1718270) Radiology Study observation (narrative) (test code = 54688-5) JINNY (test code = JINNY) ?Left?Ventricle: Left ventricle is mildly dilated. There is mild concentric hypertrophy. Mild global hypokinesis present with akinetic apex. Mildly reduced systolic function with a visually estimated EF of 40 - 45%. There is impaired relaxation. ?Right?Ventricle: Right ventricle is normal in size and function. [facility] [id number] 09:24:43 Test Item Value Reference Interpretation Comments Range TROPONIN I (test 8.540 ng/mL See_Comment H [Automated code = 6311738499) message] The system which generated this result transmitted reference range : <=0.034. The reference range was not used to interpret this result as normal/abnormal . JINNY (test code = Reference (Normal) JINNY) Range (defined by the 99th percentile reference limit): <= 0.034 ng/mL Note: Cardiac troponin begins to rise 3-4 hours after the onset of ischemia. Repeat in 4-6 hours if the sample was drawn within 3-4 hours of the onset of the symptom and found normal. Diagnosis of myocardial injury is made with acute changes in cTn concentrations with at least one serial sample above the 99th percentile upper reference limit (URL), taken together with the patient's clinical presentation. Biotin has been reported to cause a negative bias, interpret results relative to patient's use of biotin. Lab Interpretation Abnormal (test code = 19039-8) [facility] [id number] 09:24:43 Test Item Value Reference Interpretation Comments Range TROPONIN I (test 8.540 ng/mL See_Comment H [Automated code = 4117280615) message] The system which generated this result transmitted reference range : <=0.034. The reference range was not used to interpret this result as normal/abnormal . JINNY (test code = Reference (Normal) JINNY) Range (defined by the 99th percentile reference limit): <= 0.034 ng/mL Note: Cardiac troponin begins to rise 3-4 hours after the onset of ischemia. Repeat in 4-6 hours if the sample was drawn within 3-4 hours of the onset of the symptom and found normal. Diagnosis of myocardial injury is made with acute changes in cTn concentrations with at least one serial sample above the 99th percentile upper reference limit (URL), taken together with the patient's clinical presentation. Biotin has been reported to cause a negative bias, interpret results relative to patient's use of biotin. Lab Interpretation Abnormal (test code = 33436-3) [facility] [id number] 09:24:43 Test Item Value Reference Interpretation Comments Range TROPONIN I (test 8.540 ng/mL See_Comment H [Automated code = 5624097341) message] The system which generated this result transmitted reference range : <=0.034. The reference range was not used to interpret this result as normal/abnormal . JINNY (test code = Reference (Normal) JINNY) Range (defined by the 99th percentile reference limit): <= 0.034 ng/mL Note: Cardiac troponin begins to rise 3-4 hours after the onset of ischemia. Repeat in 4-6 hours if the sample was drawn within 3-4 hours of the onset of the symptom and found normal. Diagnosis of myocardial injury is made with acute changes in cTn concentrations with at least one serial sample above the 99th percentile upper reference limit (URL), taken together with the patient's clinical presentation. Biotin has been reported to cause a negative bias, interpret results relative to patient's use of biotin. Lab Interpretation Abnormal (test code = 97288-1) [facility] WITHOUT [id number] 08:53:19 Test Item Value Reference Range Interpretation Comments WBC (test code = 6690-2) See_Comment H [A utomated message] The system [facility] generated this result transmit corie reference range : 4.20 - 10.70 10*3/?L. The reference range was not used to interpret this result as normal/abnormal . RBC (test code = 789-8) See_Comment L [Au tomated message] The system [facility] generated this result transmit corie reference range : 4.26 - 5.52 10* 6/?L. The reference r mera was not used to interpret this result as normal/abnormal . HGB (test code = 718-7) 7.4 g/dL 12.2-16.4 L HCT (test code = 4544-3) 22.5 % 38.4-49.3 L MCH (test code = 785-6) 26.5 pg 26.1-32.7 MCV (test code = 787-2) 80.6 fL 81.7-95.6 L MCHC (test code = 786-4) 32.9 g/dL 31.2-35.0 PLT (test code = 777-3) See_Comment [Au tomated message] The system [facility] generated this result transmit corie reference range : 150 - 328 10*3/?L. The reference range was not used to interpret this result as normal/abnormal . MPV (test code = 9.5 fL 9.8-13.0 L 89680-1) RDW-CV (test code = 21.3 % 12.1-15.4 H 788-0) RDW-SD (test code = 58.9 fL 38.5-51.6 H 70572-6) NRBC x10^3 (test code = See_Comment [Au tomated message] 2700783699) The system [facility] generated this result transmit corie reference range : 10*3/?L. The reference range was not used to interpret this result as normal/abnormal . NRBC/100 WBC (test code See_Comment [Au tomated message] = 9628776886) The system [facility] generated this result transmit corie reference range : 0.0 - 10.0 /100 WBC s. The reference r mera was not used to interpret this result as normal/abnormal . IPF % (test code = 0783978282) Lab Interpretation (test Abnormal code = 30495-7) [facility] WITHOUT [id number] 08:53:19 Test Item Value Reference Range Interpretation Comments WBC (test code = 6690-2) See_Comment H [A utomated message] The system [facility] generated this result transmit corie reference range : 4.20 - 10.70 10*3/?L. The reference range was not used to interpret this result as normal/abnormal . RBC (test code = 789-8) See_Comment L [Au tomated message] The system [facility] generated this result transmit corie reference range : 4.26 - 5.52 10* 6/?L. The reference r mera was not used to interpret this result as normal/abnormal . HGB (test code = 718-7) 7.4 g/dL 12.2-16.4 L HCT (test code = 4544-3) 22.5 % 38.4-49.3 L MCH (test code = 785-6) 26.5 pg 26.1-32.7 MCV (test code = 787-2) 80.6 fL 81.7-95.6 L MCHC (test code = 786-4) 32.9 g/dL 31.2-35.0 PLT (test code = 777-3) See_Comment [Au tomated message] The system [facility] generated this result transmit corie reference range : 150 - 328 10*3/?L. The reference range was not used to interpret this result as normal/abnormal . MPV (test code = 9.5 fL 9.8-13.0 L 55497-3) RDW-CV (test code = 21.3 % 12.1-15.4 H 788-0) RDW-SD (test code = 58.9 fL 38.5-51.6 H 95210-3) NRBC x10^3 (test code = See_Comment [Au tomated message] 3227291928) The system [facility] generated this result transmit corie reference range : 10*3/?L. The reference range was not used to interpret this result as normal/abnormal . NRBC/100 WBC (test code See_Comment [Au tomated message] = 8897961257) The system [facility] generated this result transmit corie reference range : 0.0 - 10.0 /100 WBC s. The reference r mera was not used to interpret this result as normal/abnormal . IPF % (test code = 3678856291) Lab Interpretation (test Abnormal code = 41039-9) [facility] WITHOUT [id number] 08:53:19 Test Item Value Reference Range Interpretation Comments WBC (test code = 6690-2) See_Comment H [A utomated message] The system [facility] generated this result transmit corie reference range : 4.20 - 10.70 10*3/?L. The reference range was not used to interpret this result as normal/abnormal . RBC (test code = 789-8) See_Comment L [Au tomated message] The system [facility] generated this result transmit corie reference range : 4.26 - 5.52 10* 6/?L. The reference r mera was not used to interpret this result as normal/abnormal . HGB (test code = 718-7) 7.4 g/dL 12.2-16.4 L HCT (test code = 4544-3) 22.5 % 38.4-49.3 L MCH (test code = 785-6) 26.5 pg 26.1-32.7 MCV (test code = 787-2) 80.6 fL 81.7-95.6 L MCHC (test code = 786-4) 32.9 g/dL 31.2-35.0 PLT (test code = 777-3) See_Comment [Au tomated message] The system [facility] generated this result transmit corie reference range : 150 - 328 10*3/?L. The reference range was not used to interpret this result as normal/abnormal . MPV (test code = 9.5 fL 9.8-13.0 L 96657-9) RDW-CV (test code = 21.3 % 12.1-15.4 H 788-0) RDW-SD (test code = 58.9 fL 38.5-51.6 H ) NRBC x10^3 (test code = See_Comment [Au tomated message] 6938765611) The system [facility] generated this result transmit corie reference range : 10*3/?L. The reference range was not used to interpret this result as normal/abnormal . NRBC/100 WBC (test code See_Comment [Au tomated message] = 1016128863) The system [employer] generated this result transmit corie reference range : 0.0 - 10.0 /100 WBC s. The reference r mera was not used to interpret this result as normal/abnormal . IPF % (test code = 8641396325) Lab Interpretation (test Abnormal code = 87178-3) [facility] 2022-05-11 06:27:39 Test Item Value Reference Range Interpretation Comments Anti-Xa UFH (test code = <0.04 See_Comment L [A utomated message] 3274-8) The system [facility] generated this result transmitted ref erence range: 0.30 - 0 .70 IU/mL. The refe rence range was not u sed to interpret this result as normal/abnor mal. Lab Interpretation (test Abnormal code = 23170-5) [facility] 2022-05-11 06:27:39 Test Item Value Reference Range Interpretation Comments Anti-Xa UFH (test code = <0.04 See_Comment L [A utomated message] 3274-8) The system [facility] generated this result transmitted ref erence range: 0.30 - 0 .70 IU/mL. The refe rence range was not u sed to interpret this result as normal/abnor mal. Lab Interpretation (test Abnormal code = 28005-0) [facility]arin 2022-05-11 06:27:39 Test Item Value Reference Range Interpretation Comments Anti-Xa UFH (test code = <0.04 See_Comment L [A utomated message] 3274-8) The system [facility] generated this result transmitted ref erence range: 0.30 - 0 .70 IU/mL. The refe rence range was not u sed to interpret this result as normal/abnor mal. Lab Interpretation (test Abnormal code = 44913-3) [facility] [id number] 04:33:32 Test Item Value Reference Interpretation Comments Range TROPONIN I (test 7.870 ng/mL See_Comment H [Automated code = 5595027589) message] The system which generated this result transmitted reference range : <=0.034. The reference range was not used to interpret this result as normal/abnormal . JINNY (test code = Reference (Normal) JINNY) Range (defined by the 99th percentile reference limit): <= 0.034 ng/mL Note: Cardiac troponin begins to rise 3-4 hours after the onset of ischemia. Repeat in 4-6 hours if the sample was drawn within 3-4 hours of the onset of the symptom and found normal. Diagnosis of myocardial injury is made with acute changes in cTn concentrations with at least one serial sample above the 99th percentile upper reference limit (URL), taken together with the patient's clinical presentation. Biotin has been reported to cause a negative bias, interpret results relative to patient's use of biotin. Lab Interpretation Abnormal (test code = 82132-5) [facility] [id number] 04:33:32 Test Item Value Reference Interpretation Comments Range TROPONIN I (test 7.870 ng/mL See_Comment H [Automated code = 8778163003) message] The system which generated this result transmitted reference range : <=0.034. The reference range was not used to interpret this result as normal/abnormal . JINNY (test code = Reference (Normal) JINNY) Range (defined by the 99th percentile reference limit): <= 0.034 ng/mL Note: Cardiac troponin begins to rise 3-4 hours after the onset of ischemia. Repeat in 4-6 hours if the sample was drawn within 3-4 hours of the onset of the symptom and found normal. Diagnosis of myocardial injury is made with acute changes in cTn concentrations with at least one serial sample above the 99th percentile upper reference limit (URL), taken together with the patient's clinical presentation. Biotin has been reported to cause a negative bias, interpret results relative to patient's use of biotin. Lab Interpretation Abnormal (test code = 74043-5) [facility] [facility] [id number] 04:33:32 Test Item Value Reference Interpretation Comments Range TROPONIN I (test 7.870 ng/mL See_Comment H [Automated code = [id number]) message] The system which generated this result transmitted reference range : <=0.034. The reference range was not used to interpret this result as normal/abnormal . JINNY (test code = Reference (Normal) JINNY) Range (defined by the 99th percentile reference limit): <= 0.034 ng/mL Note: Cardiac troponin begins to rise 3-4 hours after the onset of ischemia. Repeat in 4-6 hours if the sample was drawn within 3-4 hours of the onset of the symptom and found normal. Diagnosis of myocardial injury is made with acute changes in cTn concentrations with at least one serial sample above the 99th percentile upper reference limit (URL), taken together with the patient's clinical presentation. Biotin has been reported to cause a negative bias, interpret results relative to patient's use of biotin. Lab Interpretation Abnormal (test code = 76114-6) [facility] (for use with Heparin Infusion)2022-05-11 04:09:30 Test Item Value Reference Range Interpretation Comments APTT Patient (test code See_Comment H [Au tomated message] = 3173-2) The system [facility] generated this result transmitted ref erence range: 26 - 36 Seconds. The reference range was not used to int erpret this result as normal/abnormal . Lab Interpretation (test Abnormal code = 50560-8) [facility] (for use with Heparin Infusion)2022-05-11 04:09:30 Test Item Value Reference Range Interpretation Comments APTT Patient (test code See_Comment H [Au tomated message] = 3173-2) The system [facility] generated this result transmitted ref erence range: 26 - 36 Seconds. The reference range was not used to int erpret this result as normal/abnormal . Lab Interpretation (test Abnormal code = 77588-0) [facility] (for use with Heparin Infusion)2022-05-11 04:09:30 Test Item Value Reference Range Interpretation Comments APTT Patient (test code See_Comment H [Au tomated message] = 3173-2) The system [facility] generated this result transmitted ref erence range: 26 - 36 Seconds. The reference range was not used to int erpret this result as normal/abnormal . Lab Interpretation (test Abnormal code = 10817-0) [facility] GLUCOSE (AUTOMATED)2022-05-11 01:53:15 Test Item Value Reference Range Interpretation Comments POCT GLU (test code = 0601723975) 237 mg/dL 70-110 H Lab Interpretation (test code = Abnormal 76312-6) [facility] GLUCOSE (AUTOMATED)2022-05-11 01:53:15 Test Item Value Reference Range Interpretation Comments POCT GLU (test code = 9713810814) 237 mg/dL 70-110 H Lab Interpretation (test code = Abnormal 25347-4) [facility] GLUCOSE (AUTOMATED)2022-05-11 01:53:15 Test Item Value Reference Range Interpretation Comments POCT GLU (test code = 3781764297) 237 mg/dL 70-110 H Lab Interpretation (test code = Abnormal 58652-3) [facility] WITHOUT [id number] 01:30:04 Test Item Value Reference Range Interpretation Comments WBC (test code = 6690-2) See_Comment H [A utomated message] The system [facility] generated this result transmit corie reference range : 4.20 - 10.70 10*3/?L. The reference range was not used to interpret this result as normal/abnormal . RBC (test code = 789-8) See_Comment L [Au tomated message] The system [facility] generated this result transmit corie reference range : 4.26 - 5.52 10* 6/?L. The reference r mera was not used to interpret this result as normal/abnormal . HGB (test code = 718-7) 7.6 g/dL 12.2-16.4 L HCT (test code = 4544-3) 22.3 % 38.4-49.3 L MCH (test code = 785-6) 27.3 pg 26.1-32.7 MCV (test code = 787-2) 80.2 fL 81.7-95.6 L MCHC (test code = 786-4) 34.1 g/dL 31.2-35.0 PLT (test code = 777-3) See_Comment [Au tomated message] The system [facility] generated this result transmit corie reference range : 150 - 328 10*3/?L. The reference range was not used to interpret this result as normal/abnormal . MPV (test code = 9.6 fL 9.8-13.0 L 47340-3) RDW-CV (test code = 20.8 % 12.1-15.4 H 788-0) RDW-SD (test code = 58.5 fL 38.5-51.6 H 41705-1) NRBC x10^3 (test code = See_Comment [Au tomated message] [id number]) The system [facility] generated this result transmit corie reference range : 10*3/?L. The reference range was not used to interpret this result as normal/abnormal . NRBC/100 WBC (test code See_Comment [Au tomated message] = 3064418689) The system [facility] generated this result transmit corie reference range : 0.0 - 10.0 /100 WBC s. The reference r mera was not used to interpret this result as normal/abnormal . IPF % (test code = 4517822255) Lab Interpretation (test Abnormal code = 71078-8) [facility] WITHOUT [id number] 01:30:04 Test Item Value Reference Range Interpretation Comments WBC (test code = 6690-2) See_Comment H [A utomated message] The system [facility] generated this result transmit corie reference range : 4.20 - 10.70 10*3/?L. The reference range was not used to interpret this result as normal/abnormal . RBC (test code = 789-8) See_Comment L [Au tomated message] The system [facility] generated this result transmit corie reference range : 4.26 - 5.52 10* 6/?L. The reference r mera was not used to interpret this result as normal/abnormal . HGB (test code = 718-7) 7.6 g/dL 12.2-16.4 L HCT (test code = 4544-3) 22.3 % 38.4-49.3 L MCH (test code = 785-6) 27.3 pg 26.1-32.7 MCV (test code = 787-2) 80.2 fL 81.7-95.6 L MCHC (test code = 786-4) 34.1 g/dL 31.2-35.0 PLT (test code = 777-3) See_Comment [Au tomated message] The system [facility] generated this result transmit corie reference range : 150 - 328 10*3/?L. The reference range was not used to interpret this result as normal/abnormal . MPV (test code = 9.6 fL 9.8-13.0 L 53651-0) RDW-CV (test code = 20.8 % 12.1-15.4 H 788-0) RDW-SD (test code = 58.5 fL 38.5-51.6 H 35195-3) NRBC x10^3 (test code = See_Comment [Au tomated message] [id number]) The system [facility] generated this result transmit corie reference range : 10*3/?L. The reference range was not used to interpret this result as normal/abnormal . NRBC/100 WBC (test code See_Comment [Au tomated message] = 7787373436) The system [facility] generated this result transmit corie reference range : 0.0 - 10.0 /100 WBC s. The reference r mera was not used to interpret this result as normal/abnormal . IPF % (test code = 3344019949) Lab Interpretation (test Abnormal code = 77454-5) [facility] WITHOUT [id number] 01:30:04 Test Item Value Reference Range Interpretation Comments WBC (test code = 6690-2) See_Comment H [A utomated message] The system [facility] generated this result transmit corie reference range : 4.20 - 10.70 10*3/?L. The reference range was not used to interpret this result as normal/abnormal . RBC (test code = 789-8) See_Comment L [Au tomated message] The system [facility] generated this result transmit corie reference range : 4.26 - 5.52 10* 6/?L. The reference r mera was not used to interpret this result as normal/abnormal . HGB (test code = 718-7) 7.6 g/dL 12.2-16.4 L HCT (test code = 4544-3) 22.3 % 38.4-49.3 L MCH (test code = 785-6) 27.3 pg 26.1-32.7 MCV (test code = 787-2) 80.2 fL 81.7-95.6 L MCHC (test code = 786-4) 34.1 g/dL 31.2-35.0 PLT (test code = 777-3) See_Comment [Au tomated message] The system [facility] generated this result transmit corie reference range : 150 - 328 10*3/?L. The reference range was not used to interpret this result as normal/abnormal . MPV (test code = 9.6 fL 9.8-13.0 L 32989-3) RDW-CV (test code = 20.8 % 12.1-15.4 H 788-0) RDW-SD (test code = 58.5 fL 38.5-51.6 H 44724-4) NRBC x10^3 (test code = See_Comment [Au tomated message] 7304842928) The system [facility] generated this result transmit corie reference range : 10*3/?L. The reference range was not used to interpret this result as normal/abnormal . NRBC/100 WBC (test code See_Comment [Au tomated message] = 8343468024) The system [employer] generated this result transmit corie reference range : 0.0 - 10.0 /100 WBC s. The reference r mera was not used to interpret this result as normal/abnormal . IPF % (test code = 2092375109) Lab Interpretation (test Abnormal code = 73378-5) [facility] Test Item Value Reference Range Interpretation Comments APTT Patient (test code = See_Comment [ Automated message] 3173-2) The system [facility] generated this result transmitted ref erence range: 26 - 36 Seconds. The re ference range was not u sed to interpret this result as normal/abnor mal. Lab Interpretation (test Normal code = 28798-4) [facility] Test Item Value Reference Range Interpretation Comments APTT Patient (test code = See_Comment [ Automated message] 3173-2) The system [facility] generated this result transmitted ref erence range: 26 - 36 Seconds. The re ference range was not u sed to interpret this result as normal/abnor mal. Lab Interpretation (test Normal code = 85280-2) [facility]:45[facility]58 Test Item Value Reference Range Interpretation Comments APTT Patient (test code = See_Comment [ Automated message] 3173-2) The system [facility] generated this result transmitted ref erence range: 26 - 36 Seconds. The re ference range was not u sed to interpret this result as normal/abnor mal. Lab Interpretation (test Normal code = 12346-6) [facility] GLUCOSE (AUTOMATED)2022-05-10 22:05:29 Test Item Value Reference Range Interpretation Comments POCT GLU (test code = 3988231438) 176 mg/dL 70-110 H Lab Interpretation (test code = Abnormal 72126-2) [facility] GLUCOSE (AUTOMATED)2022-05-10 22:05:29 Test Item Value Reference Range Interpretation Comments POCT GLU (test code = 5969460623) 176 mg/dL 70-110 H Lab Interpretation (test code = Abnormal 81472-0) [facility] GLUCOSE (AUTOMATED)2022-05-10 22:05:29 Test Item Value Reference Range Interpretation Comments POCT GLU (test code = 3958911033) 176 mg/dL 70-110 H Lab Interpretation (test code = Abnormal 68303-5) [facility] [id number] 21:28:32 Test Item Value Reference Interpretation Comments Range TROPONIN I (test 7.080 ng/mL See_Comment H [Automated code = 0331149962) message] The system which generated this result transmitted reference range : <=0.034. The reference range was not used to interpret this result as normal/abnormal . JINNY (test code = Reference (Normal) JINNY) Range (defined by the 99th percentile reference limit): <= 0.034 ng/mL Note: Cardiac troponin begins to rise 3-4 hours after the onset of ischemia. Repeat in 4-6 hours if the sample was drawn within 3-4 hours of the onset of the symptom and found normal. Diagnosis of myocardial injury is made with acute changes in cTn concentrations with at least one serial sample above the 99th percentile upper reference limit (URL), taken together with the patient's clinical presentation. Biotin has been reported to cause a negative bias, interpret results relative to patient's use of biotin. Lab Interpretation Abnormal (test code = 04273-7) [facility] [id number] 21:28:32 Test Item Value Reference Interpretation Comments Range TROPONIN I (test 7.080 ng/mL See_Comment H [Automated code = 1860472788) message] The system which generated this result transmitted reference range : <=0.034. The reference range was not used to interpret this result as normal/abnormal . JINNY (test code = Reference (Normal) JINNY) Range (defined by the 99th percentile reference limit): <= 0.034 ng/mL Note: Cardiac troponin begins to rise 3-4 hours after the onset of ischemia. Repeat in 4-6 hours if the sample was drawn within 3-4 hours of the onset of the symptom and found normal. Diagnosis of myocardial injury is made with acute changes in cTn concentrations with at least one serial sample above the 99th percentile upper reference limit (URL), taken together with the patient's clinical presentation. Biotin has been reported to cause a negative bias, interpret results relative to patient's use of biotin. Lab Interpretation Abnormal (test code = 66021-0) [facility] [id number] 21:28:32 Test Item Value Reference Interpretation Comments Range TROPONIN I (test 7.080 ng/mL See_Comment H [Automated code = 5958502719) message] The system which generated this result transmitted reference range : <=0.034. The reference range was not used to interpret this result as normal/abnormal . JINNY (test code = Reference (Normal) JINNY) Range (defined by the 99th percentile reference limit): <= 0.034 ng/mL Note: Cardiac troponin begins to rise 3-4 hours after the onset of ischemia. Repeat in 4-6 hours if the sample was drawn within 3-4 hours of the onset of the symptom and found normal. Diagnosis of myocardial injury is made with acute changes in cTn concentrations with at least one serial sample above the 99th percentile upper reference limit (URL), taken together with the patient's clinical presentation. Biotin has been reported to cause a negative bias, interpret results relative to patient's use of biotin. Lab Interpretation Abnormal (test code = 19823-9) [facility] ([facility]), 1 Units 2022-05-10 19:44:52 Test Item Value Reference Range Interpretation Comments Cross Match Result Compatible (test code = 4409) ISBT Blood Type Code (test code = 756142) Unit Blood Type (test A Neg code = 4410) Unit Number (test [id number] code = 4411) Blood Expiration Date & Time (test code = 136092) Status Information Issued (test code = 4412) Product Red Blood Cells Identification (test code = 4413) Product Code (test C8441K92 Performed at [facility] code = 4414) Laboratory Services [facility] Blood [address] [address]Sxzj Free: [phone] A No. [id number] [facility]), 1 Units 2022-05-10 19:44:52 Test Item Value Reference Range Interpretation Comments Cross Match Result Compatible (test code = 4409) ISBT Blood Type Code (test code = 526806) Unit Blood Type (test A Neg code = 4410) Unit Number (test [id number] code = 4411) Blood Expiration Date & Time (test code = 802507) Status Information Issued (test code = 4412) Product Red Blood Cells Identification (test code = 4413) Product Code (test C2484U37 Performed at [facility] code = 4414) Laboratory Services - [facility] Blood [address] [place] [address]Gqcq Free: [phone] A No. [id number] [facility] RBC (in units), 1 Units 2022-05-10 19:44:52 Test Item Value Reference Range Interpretation Comments Cross Match Result Compatible (test code = 4409) ISBT Blood Type Code (test code = 407178) Unit Blood Type (test A Neg code = 4410) Unit Number (test [id number] code = 4411) Blood Expiration Date & Time (test code = 368270) Status Information Issued (test code = 4412) Product Red Blood Cells Identification (test code = 4413) Product Code (test J2443F42 Performed at [facility] code = 4414) Laboratory Services - [facility] Blood [address] [place] [address]Dddw Free: [phone] A No. [id number] [facility] WITHOUT [id number] 18:01:06 Test Item Value Reference Range Interpretation Comments WBC (test code = 6690-2) See_Comment [A utomated message] The system [facility] generated this result transmit corie reference range : 4.20 - 10.70 10*3/?L. The reference range was not used to interpret this result as normal/abnormal . RBC (test code = 789-8) See_Comment L [Au tomated message] The system [facility] generated this result transmit corie reference range : 4.26 - 5.52 10* 6/?L. The reference r mera was not used to interpret this result as normal/abnormal . HGB (test code = 718-7) 7.2 g/dL 12.2-16.4 L HCT (test code = 4544-3) 22.5 % 38.4-49.3 L MCH (test code = 785-6) 27.1 pg 26.1-32.7 MCV (test code = 787-2) 84.6 fL 81.7-95.6 MCHC (test code = 786-4) 32.0 g/dL 31.2-35.0 PLT (test code = 777-3) See_Comment [Au tomated message] The system [facility] generated this result transmit corie reference range : 150 - 328 10*3/?L. The reference range was not used to interpret this result as normal/abnormal . MPV (test code = 9.7 fL 9.8-13.0 L 21564-1) RDW-CV (test code = 18.8 % 12.1-15.4 H 788-0) RDW-SD (test code = 55.4 fL 38.5-51.6 H 50580-3) NRBC x10^3 (test code = See_Comment [Au tomated message] 5221424741) The system [facility] generated this result transmit corie reference range : 10*3/?L. The reference range was not used to interpret this result as normal/abnormal . NRBC/100 WBC (test code See_Comment [Au tomated message] = 6948891221) The system [employer] generated this result transmit corie reference range : 0.0 - 10.0 /100 WBC s. The reference r mera was not used to interpret this result as normal/abnormal . IPF % (test code = 2980474420) Lab Interpretation (test Abnormal code = 47971-6) [facility] WITHOUT [id number] 18:01:06 Test Item Value Reference Range Interpretation Comments WBC (test code = 6690-2) See_Comment [A utomated message] The system [employer] generated this result transmit corie reference range : 4.20 - 10.70 10*3/?L. The reference range was not used to interpret this result as normal/abnormal . RBC (test code = 789-8) See_Comment L [Au tomated message] The system [employer] generated this result transmit corie reference range : 4.26 - 5.52 10* 6/?L. The reference r mera was not used to interpret this result as normal/abnormal . HGB (test code = 718-7) 7.2 g/dL 12.2-16.4 L HCT (test code = 4544-3) 22.5 % 38.4-49.3 L MCH (test code = 785-6) 27.1 pg 26.1-32.7 MCV (test code = 787-2) 84.6 fL 81.7-95.6 MCHC (test code = 786-4) 32.0 g/dL 31.2-35.0 PLT (test code = 777-3) See_Comment [Au tomated message] The system [facility] generated this result transmit corie reference range : 150 - 328 10*3/?L. The reference range was not used to interpret this result as normal/abnormal . MPV (test code = 9.7 fL 9.8-13.0 L 40814-6) RDW-CV (test code = 18.8 % 12.1-15.4 H 788-0) RDW-SD (test code = 55.4 fL 38.5-51.6 H 38804-4) NRBC x10^3 (test code = See_Comment [Au tomated message] 7578973782) The system [facility] generated this result transmit corie reference range : 10*3/?L. The reference range was not used to interpret this result as normal/abnormal . NRBC/100 WBC (test code See_Comment [Au tomated message] = 3666467828) The system [facility] generated this result transmit corie reference range : 0.0 - 10.0 /100 WBC s. The reference r mera was not used to interpret this result as normal/abnormal . IPF % (test code = 3591100551) Lab Interpretation (test Abnormal code = 84702-5) [facility] WITHOUT [id number] 18:01:06 Test Item Value Reference Range Interpretation Comments WBC (test code = 6690-2) See_Comment [A utomated message] The system [employer] generated this result transmit corie reference range : 4.20 - 10.70 10*3/?L. The reference range was not used to interpret this result as normal/abnormal . RBC (test code = 789-8) See_Comment L [Au tomated message] The system [facility] generated this result transmit corie reference range : 4.26 - 5.52 10* 6/?L. The reference r mera was not used to interpret this result as normal/abnormal . HGB (test code = 718-7) 7.2 g/dL 12.2-16.4 L HCT (test code = 4544-3) 22.5 % 38.4-49.3 L MCH (test code = 785-6) 27.1 pg 26.1-32.7 MCV (test code = 787-2) 84.6 fL 81.7-95.6 MCHC (test code = 786-4) 32.0 g/dL 31.2-35.0 PLT (test code = 777-3) See_Comment [Au tomated message] The system [facility] generated this result transmit corie reference range : 150 - 328 10*3/?L. The reference range was not used to interpret this result as normal/abnormal . MPV (test code = 9.7 fL 9.8-13.0 L 38047-7) RDW-CV (test code = 18.8 % 12.1-15.4 H 788-0) RDW-SD (test code = 55.4 fL 38.5-51.6 H 35005-4) NRBC x10^3 (test code = See_Comment [Au tomated message] 5453116162) The system [facility] generated this result transmit corie reference range : 10*3/?L. The reference range was not used to interpret this result as normal/abnormal . NRBC/100 WBC (test code See_Comment [Au tomated message] = 8320684320) The system [employer] generated this result transmit corie reference range : 0.0 - 10.0 /100 WBC s. The reference r mera was not used to interpret this result as normal/abnormal . IPF % (test code = 5060660476) Lab Interpretation (test Abnormal code = 93320-4) [facility] GLUCOSE (AUTOMATED)2022-05-10 17:54:10 Test Item Value Reference Range Interpretation Comments POCT GLU (test code = 2019045208) 208 mg/dL 70-110 H Lab Interpretation (test code = Abnormal 37380-6) [facility] GLUCOSE (AUTOMATED)2022-05-10 17:54:10 Test Item Value Reference Range Interpretation Comments POCT GLU (test code = 1663474702) 208 mg/dL 70-110 H Lab Interpretation (test code = Abnormal 66892-0) [facility] GLUCOSE (AUTOMATED)2022-05-10 17:54:10 Test Item Value Reference Range Interpretation Comments POCT GLU (test code = 7205060922) 208 mg/dL 70-110 H Lab Interpretation (test code = Abnormal 62357-1) [facility] [id number] 14:56:47 Test Item Value Reference Range Interpretation Comments FERRITIN (test code = 175.0 ng/mL 18.0-464.0 6974512244) JINNY (test code = JINNY) Biotin has been reported to cause a negative bias, interpret results relative to patient's use of biotin. Lab Interpretation (test Normal code = 55973-7) [facility] [id number] 14:56:47 Test Item Value Reference Range Interpretation Comments FERRITIN (test code = 175.0 ng/mL 18.0-464.0 0974640695) JINNY (test code = JINNY) Biotin has been reported to cause a negative bias, interpret results relative to patient's use of biotin. Lab Interpretation (test Normal code = 57564-0) [facility] [id number] 14:56:47 Test Item Value Reference Range Interpretation Comments FERRITIN (test code = 175.0 ng/mL 18.0-464.0 4812752094) JINNY (test code = JINNY) Biotin has been reported to cause a negative bias, interpret results relative to patient's use of biotin. Lab Interpretation (test Normal code = 81731-5) [facility] GLUCOSE (AUTOMATED)2022-05-10 13:20:35 Test Item Value Reference Range Interpretation Comments POCT GLU (test code = 6105916078) 170 mg/dL 70-110 H Lab Interpretation (test code = Abnormal 63632-9) [facility] GLUCOSE (AUTOMATED)2022-05-10 13:20:35 Test Item Value Reference Range Interpretation Comments POCT GLU (test code = 1455178088) 170 mg/dL 70-110 H Lab Interpretation (test code = Abnormal 04433-2) [facility] GLUCOSE (AUTOMATED)2022-05-10 13:20:35 Test Item Value Reference Range Interpretation Comments POCT GLU (test code = 1223586450) 170 mg/dL 70-110 H Lab Interpretation (test code = Abnormal 32256-5) [facility] [id number] 12:57:38 Test Item Value Reference Range Interpretation Comments IRON (test code = 1251803237) 128 ug/dL 50-160 TIBC (test code = 1656850842) 239 ug/dL 250-410 L % FE SAT (test code = 9720029277) 54 % 20-50 H Lab Interpretation (test code = Abnormal 18056-1) [facility] [id number] 12:57:38 Test Item Value Reference Range Interpretation Comments IRON (test code = 2086251178) 128 ug/dL 50-160 TIBC (test code = 5056667568) 239 ug/dL 250-410 L % FE SAT (test code = 3938529246) 54 % 20-50 H Lab Interpretation (test code = Abnormal 75410-1) [facility] [id number] 12:57:38 Test Item Value Reference Range Interpretation Comments IRON (test code = 8771631346) 128 ug/dL 50-160 TIBC (test code = 8313502882) 239 ug/dL 250-410 L % FE SAT (test code = 0778926574) 54 % 20-50 H Lab Interpretation (test code = Abnormal 45769-9) [facility] Packed RBC (in units)2022-05-10 12:52:36 Test Item Value Reference Range Interpretation Comments Cross Match Result Compatible (test code = 4409) ISBT Blood Type Code (test code = 655859) Unit Blood Type (test A Neg code = 4410) Unit Number (test [id number] code = 4411) Blood Expiration Date & Time (test code = 794017) Status Information Issued (test code = 4412) Product Red Blood Cells Identification (test code = 4413) Product Code (test L1888E27 Performed at [facility] code = 4414) Laboratory Services - [facility] Blood [address] [address]Mkew Free: [phone] A No. [id number] [facility] Packed RBC (in units)2022-05-10 12:52:36 Test Item Value Reference Range Interpretation Comments Cross Match Result Compatible (test code = 4409) ISBT Blood Type Code (test code = 446042) Unit Blood Type (test A Neg code = 4410) Unit Number (test [id number] code = 4411) Blood Expiration Date & Time (test code = 285861) Status Information Issued (test code = 4412) Product Red Blood Cells Identification (test code = 4413) Product Code (test S2710S35 Performed at [facility] code = 4414) Laboratory Services - [facility] Blood [address] [address]Jfqv Free: [phone] A No. [id number] [facility] Packed RBC (in units)2022-05-10 12:52:36 Test Item Value Reference Range Interpretation Comments Cross Match Result Compatible (test code = 4409) ISBT Blood Type Code (test code = 995974) Unit Blood Type (test A Neg code = 4410) Unit Number (test [id number] code = 4411) Blood Expiration Date & Time (test code = 774169) Status Information Issued (test code = 4412) Product Red Blood Cells Identification (test code = 4413) Product Code (test W6473V02 Performed at [facility] code = 4414) Laboratory Services - [facility] Blood [address] [place], [place] [address]Cyba Free: [phone] A No. [id number] [facility] [id number] 12:50:21 Test Item Value Reference Interpretation Comments Range TROPONIN I (test 2.800 ng/mL See_Comment H [Automated code = 3910138413) message] The system which generated this result transmitted reference range : <=0.034. The reference range was not used to interpret this result as normal/abnormal . JNINY (test code = Reference (Normal) JINNY) Range (defined by the 99th percentile reference limit): <= 0.034 ng/mL Note: Cardiac troponin begins to rise 3-4 hours after the onset of ischemia. Repeat in 4-6 hours if the sample was drawn within 3-4 hours of the onset of the symptom and found normal. Diagnosis of myocardial injury is made with acute changes in cTn concentrations with at least one serial sample above the 99th percentile upper reference limit (URL), taken together with the patient's clinical presentation. Biotin has been reported to cause a negative bias, interpret results relative to patient's use of biotin. Lab Interpretation Abnormal (test code = 88629-2) [facility] [id number] 12:50:21 Test Item Value Reference Interpretation Comments Range TROPONIN I (test 2.800 ng/mL See_Comment H [Automated code = 1591497035) message] The system which generated this result transmitted reference range : <=0.034. The reference range was not used to interpret this result as normal/abnormal . JINNY (test code = Reference (Normal) JINNY) Range (defined by the 99th percentile reference limit): <= 0.034 ng/mL Note: Cardiac troponin begins to rise 3-4 hours after the onset of ischemia. Repeat in 4-6 hours if the sample was drawn within 3-4 hours of the onset of the symptom and found normal. Diagnosis of myocardial injury is made with acute changes in cTn concentrations with at least one serial sample above the 99th percentile upper reference limit (URL), taken together with the patient's clinical presentation. Biotin has been reported to cause a negative bias, interpret results relative to patient's use of biotin. Lab Interpretation Abnormal (test code = 60642-2) [facility] [id number] 12:50:21 Test Item Value Reference Interpretation Comments Range TROPONIN I (test 2.800 ng/mL See_Comment H [Automated code = 1517116716) message] The system which generated this result transmitted reference range : <=0.034. The reference range was not used to interpret this result as normal/abnormal . JINNY (test code = Reference (Normal) JINNY) Range (defined by the 99th percentile reference limit): <= 0.034 ng/mL Note: Cardiac troponin begins to rise 3-4 hours after the onset of ischemia. Repeat in 4-6 hours if the sample was drawn within 3-4 hours of the onset of the symptom and found normal. Diagnosis of myocardial injury is made with acute changes in cTn concentrations with at least one serial sample above the 99th percentile upper reference limit (URL), taken together with the patient's clinical presentation. Biotin has been reported to cause a negative bias, interpret results relative to patient's use of biotin. Lab Interpretation Abnormal (test code = 50189-6) [facility] [id number] 12:13:43 Test Item Value Reference Range Interpretation Comments ABO & RH (test code A Positive Performe d at [facility] = 20) Laboratory Serv [facility] Blood [address] [place], [place] [address]Toll Free: [phone] A No. [id number] IAT (test code = Negative Performed a t [facility] 1185) Laboratory Serv [facility] Blood Bank[address] [place] [address] Free: [phone] A No. [id number] [facility] [id number] 12:13:43 Test Item Value Reference Range Interpretation Comments ABO & RH (test code A Positive Performe d at [facility] = 20) Laboratory [facility] Blood [place] [address]Toll Free: [phone] A No. [id number] IAT (test code = Negative Performed a t [facility] 1185) Laboratory [facility] Blood [place] [address]Toll Free: [phone] A No. [id number] [facility] [id number] 12:13:43 Test Item Value Reference Range Interpretation Comments ABO & RH (test code A Positive Performe d at [facility] = 20) Laboratory [facility] Blood [address] Free: [phone] A No. [id number] IAT (test code = Negative Performed a t [facility] 1185) Laboratory [facility] Blood [place] [address]Toll Free: [phone] A No. [id number] [facility] (NA, K, CL, CO2, GLUCOSE, BUN, CREATININE, CA)2022-05-10 10:49:51 Test Item Value Reference Range Interpretation Comments NA (test code = 136 mmol/L 135-145 2007015094) K (test code = 5.2 mmol/L 3.5-5.0 H Slight 6966502820) hemolysis CL (test code = 99 mmol/L 98-108 1799662540) CO2 TOTAL (test code 26 mmol/L 23-31 = 5084256744) AGAP (test code = 2-16 4637285364) BUN (test code = 74 mg/dL 7-23 H Slight 8074653810) hemolysis GLUCOSE (test code = 149 mg/dL 70-110 H 7261897354) CREATININE (test code 8.02 mg/dL 0.60-1.25 H = 0755838938) CALCIUM (test code = 8.5 mg/dL 8.6-10.6 L 5949017653) eGFR (test code = mL/min/1.73m2 6478253320) JINNY (test code = JINNY) Association of Glomerular Filtration Rate (GFR) and Staging of Kidney Disease* + -----+ --------+ +| GFR (mL/min/1.73 m2) ?| With Kidney Damage ?| ?Without Kidney Damage+ +------- +---- --+| ?>90 ?| ?Stage one ?| ? Normal ?+ ------+ ---------+--------- +| ?60-89 ?| ?Stage two ?| ? Decreased GFR ? + -----+ --------+ +| ?30-59 ?| ?Stage three ?| ? Stage three ? + -----+ --------+ +| ?15-29 ?| ?Stage four ? | ? Stage four ?+ ------+ ---------+--------- +| ?<15 (or dialysis) ? ?| ?Stage five ? | ? Stage five ?+ ------+ ---------+--------- + *Each stage assumes the associated GFR level has been in effect for at least three months. ?Stages 1 to 5, with or without kidney disease, indicate chronic kidney disease. Notes: Determination of stages one and two (with eGFR >59mL/min/1.73 m2) requires estimation of kidney damage for at least three months as defined by structural or functional abnormalities of the kidney, manifested by either:Pathological abnormalities or Markers of kidney damage (including abnormalities in the composition of the blood or urine or abnormalities in imaging tests). Lab Interpretation Abnormal (test code = 21727-7) [facility] METABOLIC PANEL (NA, K, CL, CO2, GLUCOSE, BUN, CREATININE, CA)2022-05-10 10:49:51 Test Item Value Reference Range Interpretation Comments NA (test code = 136 mmol/L 135-145 2325567586) K (test code = 5.2 mmol/L 3.5-5.0 H Slight 8827617936) hemolysis CL (test code = 99 mmol/L 98-108 3052847094) CO2 TOTAL (test code 26 mmol/L 23-31 = 5101125282) AGAP (test code = 2-16 0695219627) BUN (test code = 74 mg/dL 7-23 H Slight 7204533456) hemolysis GLUCOSE (test code = 149 mg/dL 70-110 H 9986419170) CREATININE (test code 8.02 mg/dL 0.60-1.25 H = 3255136153) CALCIUM (test code = 8.5 mg/dL 8.6-10.6 L 4053060018) eGFR (test code = mL/min/1.73m2 1022717225) JINNY (test code = JINNY) Association of Glomerular Filtration Rate (GFR) and Staging of Kidney Disease* + -----+ --------+ +| GFR (mL/min/1.73 m2) ?| With Kidney Damage ?| ?Without Kidney Damage+ +------- +---- --+| ?>90 ?| ?Stage one ?| ? Normal ?+ ------+ ---------+--------- +| ?60-89 ?| ?Stage two ?| ? Decreased GFR ? + -----+ --------+ +| ?30-59 ?| ?Stage three ?| ? Stage three ? + -----+ --------+ +| ?15-29 ?| ?Stage four ? | ? Stage four ?+ ------+ ---------+--------- +| ?<15 (or dialysis) ? ?| ?Stage five ? | ? Stage five ?+ ------+ ---------+--------- + *Each stage assumes the associated GFR level has been in effect for at least three months. ?Stages 1 to 5, with or without kidney disease, indicate chronic kidney disease. Notes: Determination of stages one and two (with eGFR >59mL/min/1.73 m2) requires estimation of kidney damage for at least three months as defined by structural or functional abnormalities of the kidney, manifested by either:Pathological abnormalities or Markers of kidney damage (including abnormalities in the composition of the blood or urine or abnormalities in imaging tests). Lab Interpretation Abnormal (test code = 57684-8) [facility] METABOLIC PANEL (NA, K, CL, CO2, GLUCOSE, BUN, CREATININE, CA)2022-05-10 10:49:51 Test Item Value Reference Range Interpretation Comments NA (test code = 136 mmol/L 135-145 6614345629) K (test code = 5.2 mmol/L 3.5-5.0 H Slight 1624960560) hemolysis CL (test code = 99 mmol/L 98-108 4814282863) CO2 TOTAL (test code 26 mmol/L 23-31 = 8030668826) AGAP (test code = 2-16 1898926678) BUN (test code = 74 mg/dL 7-23 H Slight 8536349147) hemolysis GLUCOSE (test code = 149 mg/dL 70-110 H 5383876222) CREATININE (test code 8.02 mg/dL 0.60-1.25 H = 4902209789) CALCIUM (test code = 8.5 mg/dL 8.6-10.6 L 2736668913) eGFR (test code = mL/min/1.73m2 1116330387) JINNY (test code = JINNY) Association of Glomerular Filtration Rate (GFR) and Staging of Kidney Disease* + -----+ --------+ +| GFR (mL/min/1.73 m2) ?| With Kidney Damage ?| ?Without Kidney Damage+ +------- +---- --+| ?>90 ?| ?Stage one ?| ? Normal ?+ ------+ ---------+--------- +| ?60-89 ?| ?Stage two ?| ? Decreased GFR ? + -----+ --------+ +| ?30-59 ?| ?Stage three ?| ? Stage three ? + -----+ --------+ +| ?15-29 ?| ?Stage four ? | ? Stage four ?+ ------+ ---------+--------- +| ?<15 (or dialysis) ? ?| ?Stage five ? | ? Stage five ?+ ------+ ---------+--------- + *Each stage assumes the associated GFR level has been in effect for at least three months. ?Stages 1 to 5, with or without kidney disease, indicate chronic kidney disease. Notes: Determination of stages one and two (with eGFR >59mL/min/1.73 m2) requires estimation of kidney damage for at least three months as defined by structural or functional abnormalities of the kidney, manifested by either:Pathological abnormalities or Markers of kidney damage (including abnormalities in the composition of the blood or urine or abnormalities in imaging tests). Lab Interpretation Abnormal (test code = 72276-8) [facility] WITHOUT [id number] 10:31:14 Test Item Value Reference Range Interpretation Comments WBC (test code = 6690-2) See_Comment [A utomated message] The system [facility] generated this result transmit corie reference range : 4.20 - 10.70 10*3/?L. The reference range was not used to interpret this result as normal/abnormal . RBC (test code = 789-8) See_Comment L [Au tomated message] The system [facility] generated this result transmit corie reference range : 4.26 - 5.52 10* 6/?L. The reference r mera was not used to interpret this result as normal/abnormal . HGB (test code = 718-7) 6.3 g/dL 12.2-16.4 L HCT (test code = 4544-3) 19.7 % 38.4-49.3 L MCH (test code = 785-6) 26.3 pg 26.1-32.7 MCV (test code = 787-2) 82.1 fL 81.7-95.6 MCHC (test code = 786-4) 32.0 g/dL 31.2-35.0 PLT (test code = 777-3) See_Comment [Au tomated message] The system [facility] generated this result transmit corie reference range : 150 - 328 10*3/?L. The reference range was not used to interpret this result as normal/abnormal . MPV (test code = 10.1 fL 9.8-13.0 78785-5) RDW-CV (test code = 20.4 % 12.1-15.4 H 788-0) RDW-SD (test code = 57.1 fL 38.5-51.6 H 64353-3) NRBC x10^3 (test code = See_Comment [Au tomated message] 2863377929) The system [employer] generated this result transmit corie reference range : 10*3/?L. The reference range was not used to interpret this result as normal/abnormal . NRBC/100 WBC (test code See_Comment [Au tomated message] = 9806223622) The system [facility] generated this result transmit corie reference range : 0.0 - 10.0 /100 WBC s. The reference r mera was not used to interpret this result as normal/abnormal . IPF % (test code = 8924584079) Lab Interpretation (test Abnormal code = 63489-1) [facility] WITHOUT [id number] 10:31:14 Test Item Value Reference Range Interpretation Comments WBC (test code = 6690-2) See_Comment [A utomated message] The system [facility] generated this result transmit corie reference range : 4.20 - 10.70 10*3/?L. The reference range was not used to interpret this result as normal/abnormal . RBC (test code = 789-8) See_Comment L [Au tomated message] The system [facility] generated this result transmit corie reference range : 4.26 - 5.52 10* 6/?L. The reference r mera was not used to interpret this result as normal/abnormal . HGB (test code = 718-7) 6.3 g/dL 12.2-16.4 L HCT (test code = 4544-3) 19.7 % 38.4-49.3 L MCH (test code = 785-6) 26.3 pg 26.1-32.7 MCV (test code = 787-2) 82.1 fL 81.7-95.6 MCHC (test code = 786-4) 32.0 g/dL 31.2-35.0 PLT (test code = 777-3) See_Comment [Au tomated message] The system [facility] generated this result transmit corie reference range : 150 - 328 10*3/?L. The reference range was not used to interpret this result as normal/abnormal . MPV (test code = 10.1 fL 9.8-13.0 09269-4) RDW-CV (test code = 20.4 % 12.1-15.4 H 788-0) RDW-SD (test code = 57.1 fL 38.5-51.6 H 63256-2) NRBC x10^3 (test code = See_Comment [Au tomated message] 6763735462) The system [facility] generated this result transmit corie reference range : 10*3/?L. The reference range was not used to interpret this result as normal/abnormal . NRBC/100 WBC (test code See_Comment [Au tomated message] = 3068200132) The system [facility] generated this result transmit corie reference range : 0.0 - 10.0 /100 WBC s. The reference r mera was not used to interpret this result as normal/abnormal . IPF % (test code = 3000264248) Lab Interpretation (test Abnormal code = 91910-4) [facility] WITHOUT [id number] 10:31:14 Test Item Value Reference Range Interpretation Comments WBC (test code = 6690-2) See_Comment [A utomated message] The system [facility] generated this result transmit corie reference range : 4.20 - 10.70 10*3/?L. The reference range was not used to interpret this result as normal/abnormal . RBC (test code = 789-8) See_Comment L [Au tomated message] The system [facility] generated this result transmit corie reference range : 4.26 - 5.52 10* 6/?L. The reference r mera was not used to interpret this result as normal/abnormal . HGB (test code = 718-7) 6.3 g/dL 12.2-16.4 L HCT (test code = 4544-3) 19.7 % 38.4-49.3 L MCH (test code = 785-6) 26.3 pg 26.1-32.7 MCV (test code = 787-2) 82.1 fL 81.7-95.6 MCHC (test code = 786-4) 32.0 g/dL 31.2-35.0 PLT (test code = 777-3) See_Comment [Au tomated message] The system [facility] generated this result transmit corie reference range : 150 - 328 10*3/?L. The reference range was not used to interpret this result as normal/abnormal . MPV (test code = 10.1 fL 9.8-13.0 36007-0) RDW-CV (test code = 20.4 % 12.1-15.4 H 788-0) RDW-SD (test code = 57.1 fL 38.5-51.6 H 78660-1) NRBC x10^3 (test code = See_Comment [Au tomated message] 4613353056) The system [facility] generated this result transmit corie reference range : 10*3/?L. The reference range was not used to interpret this result as normal/abnormal . NRBC/100 WBC (test code See_Comment [Au tomated message] = 6611510703) The system [employer] generated this result transmit corie reference range : 0.0 - 10.0 /100 WBC s. The reference r mera was not used to interpret this result as normal/abnormal . IPF % (test code = 4886652547) Lab Interpretation (test Abnormal code = 58295-7) [facility] GLUCOSE (AUTOMATED)2022-05-10 03:53:52 Test Item Value Reference Range Interpretation Comments POCT GLU (test code = 4814842992) 184 mg/dL 70-110 H Lab Interpretation (test code = Abnormal 52406-0) [facility] GLUCOSE (AUTOMATED)2022-05-10 03:53:52 Test Item Value Reference Range Interpretation Comments POCT GLU (test code = 6683022883) 184 mg/dL 70-110 H Lab Interpretation (test code = Abnormal 07920-8) [facility] GLUCOSE (AUTOMATED)2022-05-10 03:53:52 Test Item Value Reference Range Interpretation Comments POCT GLU (test code = 0527720859) 184 mg/dL 70-110 H Lab Interpretation (test code = Abnormal 70047-2) [facility] and Screen - ONCE [id number] 02:58:21 Test Item Value Reference Range Interpretation Comments IAT (test code = Negative Performed a t [facility] 1185) Laboratory [facility] Blood [address] [place] [address] 2Toll Free: [phone] 266CLIA No. [id number] [facility] [id number] 02:58:21 Test Item Value Reference Range Interpretation Comments IAT (test code = Negative Performed a t [facility] 1185) Laboratory [facility] Blood [address] [place] [address] 2Toll Free: [phone] 266CLIA No. [id number] [facility] and Screen - ONCE [id number] 02:58:21 Test Item Value Reference Range Interpretation Comments IAT (test code = Negative Performed a t [facility] 1185) Laboratory [facility] Blood [address] [place] [address] 2Toll Free: [phone] 266CLIA No. [id number] [facility] INVESTIGATION [id number] 02:23:33 Test Item Value Reference Range Interpretation Comments ABO & RH (test A Positive Weak D posPer formed at code = 20) [facility] Laboratory [facility] Blood [address] [place] [address] 2Toll Free: [phone] 266CLIA No. [id number] [facility] INVESTIGATION [id number] 02:23:33 Test Item Value Reference Range Interpretation Comments ABO & RH (test A Positive Weak D posPer formed at code = 20) [facility] Blood [address] [place] [address] 2Toll Free: [phone] 266CLIA No. [id number] [facility] INVESTIGATION [id number] 02:23:33 Test Item Value Reference Range Interpretation Comments ABO & RH (test A Positive Weak D posPer formed at code = 20) [facility] Blood Ban [place] [address] 2Toll Free: [phone] 266CLIA No. [id number] [facility] INVESTIGATION [id number] 02:08:44 Test Item Value Reference Range Interpretation Comments ABO & RH (test A Positive Weak D posPer formed at code = 20) [facility] Laboratory [facility] Blood [address] [place] [address] 2Toll Free: [phone] 266CLIA No. [id number] [facility] INVESTIGATION [id number] 02:08:44 Test Item Value Reference Range Interpretation Comments ABO & RH (test A Positive Weak D posPer formed at code = 20) [facility] Blood [address] [place] [address] 2Toll Free: [phone] 266CLIA No. [id number] [facility] INVESTIGATION [id number] 02:08:44 Test Item Value Reference Range Interpretation Comments ABO & RH (test A Positive Weak D posPer formed at code = 20) [facility] Laboratory Services [facility] Blood [address] [place] [address] 2Toll Free: [phone] 266CLIA No. [id number] [facility] Packed RBC (in units)2022-05-10 01:43:06 Test Item Value Reference Range Interpretation Comments Unit Blood Type (test O Pos code = 4410) ISBT Blood Type Code (test code = 631083) Unit Number (test code [id number] = 4411) Blood Expiration Date & Time (test code = 855644) Status Information Issued (test code = 4412) Product Identification Red Blood (test code = 4413) Cells Product Code (test Z4225W17 Performed at [facility] code = 4414) Laboratory [facility] Blood [address] [place], [place] [address]Toll Free: [phone] A No. [id number] [facility] Packed RBC (in units)2022-05-10 01:43:06 Test Item Value Reference Range Interpretation Comments Unit Blood Type (test O Pos code = 4410) ISBT Blood Type Code (test code = 178612) Unit Number (test code [id number] = 4411) Blood Expiration Date & Time (test code = 798589) Status Information Issued (test code = 4412) Product Identification Red Blood (test code = 4413) Cells Product Code (test K0809A88 Performed at [facility] code = 4414) Laboratory [facility] Blood [address] [place], [place] [address]Toll Free: [phone] A No. [id number] [facility] Packed RBC (in units)2022-05-10 01:43:06 Test Item Value Reference Range Interpretation Comments Unit Blood Type (test O Pos code = 4410) ISBT Blood Type Code (test code = 968231) Unit Number (test code [id number] = 4411) Blood Expiration Date & Time (test code = 105971) Status Information Issued (test code = 4412) Product Identification Red Blood (test code = 4413) Cells Product Code (test Y2476X72 Performed at [facility] code = 4414) Laboratory Services - [facility] Blood [address] [place] [address]Rtat Free: [phone] A No. [id number] [facility]-TERMINAL [id number] 23:42:40 Test Item Value Reference Range Interpretation Comments NT-proBNP (test code 09467 pg/mL See_Comment H [Autom ated = 8706973382) message] The system which generated this result transmitted reference range : <=125. The reference range was not used to interpret this result as normal/abnormal . JINNY (test code = JINNY) Biotin has been reported to cause a negative bias, interpret results relative to patient's use of biotin. Lab Interpretation Abnormal (test code = 33685-5) [id number] 23:42:40 Test Item Value Reference Range Interpretation Comments NT-proBNP (test code 07712 pg/mL See_Comment H [Autom ated = 6239338031) message] The system which generated this result transmitted reference range : <=125. The reference range was not used to interpret this result as normal/abnormal . JINNY (test code = JINNY) Biotin has been reported to cause a negative bias, interpret results relative to patient's use of biotin. Lab Interpretation Abnormal (test code = 07898-2) [id number] 23[facility]42:40 Test Item Value Reference Range Interpretation Comments NT-proBNP (test code 38608 pg/mL See_Comment H [Autom ated = [id number]) message] The system which generated this result transmitted reference range : <=125. The reference range was not used to interpret this result as normal/abnormal . JINNY (test code = JINNY) Biotin has been reported to cause a negative bias, interpret results relative to patient's use of biotin. Lab Interpretation Abnormal (test code = 93253-7) [facility] [id number] 23:23:38 Test Item Value Reference Interpretation Comments Range TROPONIN I (test 0.061 ng/mL See_Comment H [Automated code = 3692581155) message] The system which generated this result transmitted reference range : <=0.034. The reference range was not used to interpret this result as normal/abnormal . JINNY (test code = Reference (Normal) JINNY) Range (defined by the 99th percentile reference limit): <= 0.034 ng/mL Note: Cardiac troponin begins to rise 3-4 hours after the onset of ischemia. Repeat in 4-6 hours if the sample was drawn within 3-4 hours of the onset of the symptom and found normal. Diagnosis of myocardial injury is made with acute changes in cTn concentrations with at least one serial sample above the 99th percentile upper reference limit (URL), taken together with the patient's clinical presentation. Biotin has been reported to cause a negative bias, interpret results relative to patient's use of biotin. Lab Interpretation Abnormal (test code = 27655-2) [facility] [id number] 23:23:38 Test Item Value Reference Interpretation Comments Range TROPONIN I (test 0.061 ng/mL See_Comment H [Automated code = 3335770118) message] The system which generated this result transmitted reference range : <=0.034. The reference range was not used to interpret this result as normal/abnormal . JINNY (test code = Reference (Normal) JINNY) Range (defined by the 99th percentile reference limit): <= 0.034 ng/mL Note: Cardiac troponin begins to rise 3-4 hours after the onset of ischemia. Repeat in 4-6 hours if the sample was drawn within 3-4 hours of the onset of the symptom and found normal. Diagnosis of myocardial injury is made with acute changes in cTn concentrations with at least one serial sample above the 99th percentile upper reference limit (URL), taken together with the patient's clinical presentation. Biotin has been reported to cause a negative bias, interpret results relative to patient's use of biotin. Lab Interpretation Abnormal (test code = 13559-6) [facility] [id number] 23:23:38 Test Item Value Reference Interpretation Comments Range TROPONIN I (test 0.061 ng/mL See_Comment H [Automated code = 3621103328) message] The system which generated this result transmitted reference range : <=0.034. The reference range was not used to interpret this result as normal/abnormal . JINNY (test code = Reference (Normal) JINNY) Range (defined by the 99th percentile reference limit): <= 0.034 ng/mL Note: Cardiac troponin begins to rise 3-4 hours after the onset of ischemia. Repeat in 4-6 hours if the sample was drawn within 3-4 hours of the onset of the symptom and found normal. Diagnosis of myocardial injury is made with acute changes in cTn concentrations with at least one serial sample above the 99th percentile upper reference limit (URL), taken together with the patient's clinical presentation. Biotin has been reported to cause a negative bias, interpret results relative to patient's use of biotin. Lab Interpretation Abnormal (test code = 88124-9) [facility]. METABOLIC PANEL ([id number])2022-05-09 23:13:42 Test Item Value Reference Range Interpretation Comments NA (test code = 135 mmol/L 135-145 8958931065) K (test code = 4.9 mmol/L 3.5-5.0 8173958558) CL (test code = 95 mmol/L 98-108 L 2817500814) CO2 TOTAL (test code = 25 mmol/L 23-31 4124944582) AGAP (test code = 2-16 3687348575) BUN (test code = 63 mg/dL 7-23 H 5327897106) GLUCOSE (test code = 303 mg/dL 70-110 H 3063508962) CREATININE (test code = 6.53 mg/dL 0.60-1.25 H 0686578576) TOTAL BILI (test code = 0.1 mg/dL 0.1-1.4 6928448484) CALCIUM (test code = 8.9 mg/dL 8.6-10.6 0068124246) T PROTEIN (test code = 6.4 g/dL 6.3-8.2 2442138121) ALBUMIN (test code = 3.7 g/dL 3.5-5.0 7220121981) ALK PHOS (test code = 48 U/L 34-122 8621478480) ALTv (test code = 9 U/L 5-50 1742-6) AST(SGOT) (test code = 14 U/L 13-40 2957369357) eGFR (test code = mL/min/1.73m2 3386472430) JINNY (test code = JINNY) Association of Glomerular Filtration Rate (GFR) and Staging of Kidney Disease* + --+ --+ ------+| GFR (mL/min/1.73 m2) ?| With Kidney Damage ?| ?Without Kidney Damage+ --------+ --------+ +| ?>90 ?| ?Stage one ?| ? Normal ?+ ---+ ---+ -------+| ?60-89 ?| ?Stage two ?| ? Decreased GFR ? + --+ --+ ------+| ?30-59 ?| ?Stage three ?| ? Stage three ? + --+ --+ ------+| ?15-29 ?| ?Stage four ? | ? Stage four ?+ ---+ ---+ -------+| ?<15 (or dialysis) ? ?| ?Stage five ? | ? Stage five ?+ ---+ ---+ -------+ *Each stage assumes the associated GFR level has been in effect for at least three months. ?Stages 1 to 5, with or without kidney disease, indicate chronic kidney disease. Notes: Determination of stages one and two (with eGFR >59mL/min/1.73 m2) requires estimation of kidney damage for at least three months as defined by structural or functional abnormalities of the kidney, manifested by either:Pathological abnormalities or Markers of kidney damage (including abnormalities in the composition of the blood or urine or abnormalities in imaging tests). Lab Interpretation Abnormal (test code = 40821-5) [facility]. METABOLIC PANEL ([id number])2022-05-09 23:13:42 Test Item Value Reference Range Interpretation Comments NA (test code = 135 mmol/L 135-145 0408844027) K (test code = 4.9 mmol/L 3.5-5.0 1827820665) CL (test code = 95 mmol/L 98-108 L 2122739709) CO2 TOTAL (test code = 25 mmol/L 23-31 3298208935) AGAP (test code = 2-16 8540955146) BUN (test code = 63 mg/dL 7-23 H 4079836254) GLUCOSE (test code = 303 mg/dL 70-110 H 0561731366) CREATININE (test code = 6.53 mg/dL 0.60-1.25 H 7614750664) TOTAL BILI (test code = 0.1 mg/dL 0.1-1.4 6116088596) CALCIUM (test code = 8.9 mg/dL 8.6-10.6 6856272372) T PROTEIN (test code = 6.4 g/dL 6.3-8.2 4502588365) ALBUMIN (test code = 3.7 g/dL 3.5-5.0 6844752047) ALK PHOS (test code = 48 U/L 34-122 9880478253) ALTv (test code = 9 U/L 5-50 1742-6) AST(SGOT) (test code = 14 U/L 13-40 8702925276) eGFR (test code = mL/min/1.73m2 0328504681) JINNY (test code = JINNY) Association of Glomerular Filtration Rate (GFR) and Staging of Kidney Disease* + --+ --+ ------+| GFR (mL/min/1.73 m2) ?| With Kidney Damage ?| ?Without Kidney Damage+ --------+ --------+ +| ?>90 ?| ?Stage one ?| ? Normal ?+ ---+ ---+ -------+| ?60-89 ?| ?Stage two ?| ? Decreased GFR ? + --+ --+ ------+| ?30-59 ?| ?Stage three ?| ? Stage three ? + --+ --+ ------+| ?15-29 ?| ?Stage four ? | ? Stage four ?+ ---+ ---+ -------+| ?<15 (or dialysis) ? ?| ?Stage five ? | ? Stage five ?+ ---+ ---+ -------+ *Each stage assumes the associated GFR level has been in effect for at least three months. ?Stages 1 to 5, with or without kidney disease, indicate chronic kidney disease. Notes: Determination of stages one and two (with eGFR >59mL/min/1.73 m2) requires estimation of kidney damage for at least three months as defined by structural or functional abnormalities of the kidney, manifested by either:Pathological abnormalities or Markers of kidney damage (including abnormalities in the composition of the blood or urine or abnormalities in imaging tests). Lab Interpretation Abnormal (test code = 78572-0) [facility] METABOLIC PANEL ([id number])2022-05-09 23:13:42 Test Item Value Reference Range Interpretation Comments NA (test code = 135 mmol/L 135-145 4525451960) K (test code = 4.9 mmol/L 3.5-5.0 8091624981) CL (test code = 95 mmol/L 98-108 L 9768886261) CO2 TOTAL (test code = 25 mmol/L 23-31 2716430067) AGAP (test code = 2-16 5520391549) BUN (test code = 63 mg/dL 7-23 H 7014366096) GLUCOSE (test code = 303 mg/dL 70-110 H 2714645717) CREATININE (test code = 6.53 mg/dL 0.60-1.25 H 5819643077) TOTAL BILI (test code = 0.1 mg/dL 0.1-1.4 9418498204) CALCIUM (test code = 8.9 mg/dL 8.6-10.6 8466202202) T PROTEIN (test code = 6.4 g/dL 6.3-8.2 1700145275) ALBUMIN (test code = 3.7 g/dL 3.5-5.0 9973000082) ALK PHOS (test code = 48 U/L 34-122 8263676599) ALTv (test code = 9 U/L 5-50 1742-6) AST(SGOT) (test code = 14 U/L 13-40 9799577113) eGFR (test code = mL/min/1.73m2 2214201189) JINNY (test code = JINNY) Association of Glomerular Filtration Rate (GFR) and Staging of Kidney Disease* + --+ --+ ------+| GFR (mL/min/1.73 m2) ?| With Kidney Damage ?| ?Without Kidney Damage+ --------+ --------+ +| ?>90 ?| ?Stage one ?| ? Normal ?+ ---+ ---+ -------+| ?60-89 ?| ?Stage two ?| ? Decreased GFR ? + --+ --+ ------+| ?30-59 ?| ?Stage three ?| ? Stage three ? + --+ --+ ------+| ?15-29 ?| ?Stage four ? | ? Stage four ?+ ---+ ---+ -------+| ?<15 (or dialysis) ? ?| ?Stage five ? | ? Stage five ?+ ---+ ---+ -------+ *Each stage assumes the associated GFR level has been in effect for at least three months. ?Stages 1 to 5, with or without kidney disease, indicate chronic kidney disease. Notes: Determination of stages one and two (with eGFR >59mL/min/1.73 m2) requires estimation of kidney damage for at least three months as defined by structural or functional abnormalities of the kidney, manifested by either:Pathological abnormalities or Markers of kidney damage (including abnormalities in the composition of the blood or urine or abnormalities in imaging tests). Lab Interpretation Abnormal (test code = 88352-2) [facility] [id number] 23:11:21 Test Item Value Reference Range Interpretation Comments APTT Patient (test See_Comment [Automat ed code = 3173-2) message] The system which generated this result transmitted reference range : 23 - 38 Seconds . The reference range was not used to interpr et this result as normal/abnormal . JINNY (test code = JINNY) The [facility] patient population mean normal value for aPTT is 30 seconds. Lab Interpretation Normal (test code = 58044-4) [facility] [id number] 23:11:21 Test Item Value Reference Range Interpretation Comments APTT Patient (test See_Comment [Automat ed code = 3173-2) message] The system which generated this result transmitted reference range : 23 - 38 Seconds . The reference range was not used to interpr et this result as normal/abnormal . JINNY (test code = JINNY) The [facility] patient population mean normal value for aPTT is 30 seconds. Lab Interpretation Normal (test code = 48693-2) [facility] [id number] 23:11:21 Test Item Value Reference Range Interpretation Comments APTT Patient (test See_Comment [Automat ed code = 3173-2) message] The system which generated this result transmitted reference range : 23 - 38 Seconds . The reference range was not used to interpr et this result as normal/abnormal . JINNY (test code = JINNY) The [facility] patient population mean normal value for aPTT is 30 seconds. Lab Interpretation Normal (test code = 33364-9) [facility] WITH [id number] 23:10:46 Test Item Value Reference Range Interpretation Comments WBC (test code = See_Comment H [Automated 6690-2) message] The sy stem which generated this result transmitted reference range : 4.20 - 10.70 10*3/?L. The reference range was not used to interpret this result as normal/abnormal . RBC (test code = See_Comment L [Automated 789-8) message] The sy stem which generated this result transmitted reference range : 4.26 - 5.52 10*6/?L. The reference range was not used to interpret this result as normal/abnormal . HGB (test code = 6.2 g/dL 12.2-16.4 L 718-7) HCT (test code = 19.6 % 38.4-49.3 L 4544-3) MCV (test code = 79.4 fL 81.7-95.6 L 787-2) MCH (test code = 25.1 pg 26.1-32.7 L 785-6) MCHC (test code = 31.6 g/dL 31.2-35.0 786-4) RDW-SD (test code = 57.2 fL 38.5-51.6 H 00559-4) RDW-CV (test code = 21.3 % 12.1-15.4 H 788-0) PLT (test code = See_Comment [Automated 777-3) message] The sy stem which generated this result transmitted reference range : 150 - 328 10*3/ ?L. The reference r mera was not used to interpret this result as normal/abnormal . MPV (test code = 9.4 fL 9.8-13.0 L 30077-6) NRBC/100 WBC (test See_Comment [Automat ed code = 4560436891) message] The system which generated this result transmitted reference range : 0.0 - 10.0 /100 WBCs. The refer ence range was not u sed to interpret th is result as normal/abnormal . NRBC x10^3 (test code See_Comment [Auto mated = 6062866292) message] The s ystem which generated this result transmitted reference range : 10*3/?L. The reference range was not used to interpret this result as normal/abnormal . GRAN MAT (NEUT) % 70.7 % (test code = 770-8) IMM GRAN % (test code 0.60 % = 3795908821) LYMPH % (test code = 18.2 % 736-9) MONO % (test code = 6.9 % 5905-5) EOS % (test code = 2.9 % 713-8) BASO % (test code = 0.7 % 706-2) GRAN MAT x10^3(ANC) 8.99 10*3/uL 1.99-6.95 H (test code = 6861618178) IMM GRAN x10^3 (test 0.07 10*3/uL 0.00-0.06 H code = 6538286668) LYMPH x10^3 (test code 2.32 10*3/uL 1.09-3.23 = 731-0) MONO x10^3 (test code 0.88 10*3/uL 0.36-1.02 = 742-7) EOS x10^3 (test code = 0.37 10*3/uL 0.06-0.53 711-2) BASO x10^3 (test code 0.09 10*3/uL 0.01-0.09 = 704-7) Lab Interpretation Abnormal (test code = 33478-4) [facility] WITH [id number] 23:10:46 Test Item Value Reference Range Interpretation Comments WBC (test code = See_Comment H [Automated 6490-2) message] The sy stem which generated this result transmitted reference range : 4.20 - 10.70 10*3/?L. The reference range was not used to interpret this result as normal/abnormal . RBC (test code = See_Comment L [Automated 509-8) message] The sy stem which generated this result transmitted reference range : 4.26 - 5.52 10*6/?L. The reference range was not used to interpret this result as normal/abnormal . HGB (test code = 6.2 g/dL 12.2-16.4 L 718-7) HCT (test code = 19.6 % 38.4-49.3 L 4544-3) MCV (test code = 79.4 fL 81.7-95.6 L 787-2) MCH (test code = 25.1 pg 26.1-32.7 L 785-6) MCHC (test code = 31.6 g/dL 31.2-35.0 786-4) RDW-SD (test code = 57.2 fL 38.5-51.6 H 41531-9) RDW-CV (test code = 21.3 % 12.1-15.4 H 788-0) PLT (test code = See_Comment [Automated 777-3) message] The sy stem which generated this result transmitted reference range : 150 - 328 10*3/ ?L. The reference r mera was not used to interpret this result as normal/abnormal . MPV (test code = 9.4 fL 9.8-13.0 L 89934-3) NRBC/100 WBC (test See_Comment [Automat ed code = 9800759959) message] The system which generated this result transmitted reference range : 0.0 - 10.0 /100 WBCs. The refer ence range was not u sed to interpret th is result as normal/abnormal . NRBC x10^3 (test code See_Comment [Auto mated = 8495208724) message] The s ystem which generated this result transmitted reference range : 10*3/?L. The reference range was not used to interpret this result as normal/abnormal . GRAN MAT (NEUT) % 70.7 % (test code = 770-8) IMM GRAN % (test code 0.60 % = 5799191604) LYMPH % (test code = 18.2 % 736-9) MONO % (test code = 6.9 % 5905-5) EOS % (test code = 2.9 % 713-8) BASO % (test code = 0.7 % 706-2) GRAN MAT x10^3(ANC) 8.99 10*3/uL 1.99-6.95 H (test code = 4778222325) IMM GRAN x10^3 (test 0.07 10*3/uL 0.00-0.06 H code = 9945859319) LYMPH x10^3 (test code 2.32 10*3/uL 1.09-3.23 = 731-0) MONO x10^3 (test code 0.88 10*3/uL 0.36-1.02 = 742-7) EOS x10^3 (test code = 0.37 10*3/uL 0.06-0.53 711-2) BASO x10^3 (test code 0.09 10*3/uL 0.01-0.09 = 704-7) Lab Interpretation Abnormal (test code = 59600-0) [facility] WITH [id number] 23:10:46 Test Item Value Reference Range Interpretation Comments WBC (test code = See_Comment H [Automated 6690-2) message] The sy stem which generated this result transmitted reference range : 4.20 - 10.70 10*3/?L. The reference range was not used to interpret this result as normal/abnormal . RBC (test code = See_Comment L [Automated 789-8) message] The sy stem which generated this result transmitted reference range : 4.26 - 5.52 10*6/?L. The reference range was not used to interpret this result as normal/abnormal . HGB (test code = 6.2 g/dL 12.2-16.4 L 718-7) HCT (test code = 19.6 % 38.4-49.3 L 4544-3) MCV (test code = 79.4 fL 81.7-95.6 L 787-2) MCH (test code = 25.1 pg 26.1-32.7 L 785-6) MCHC (test code = 31.6 g/dL 31.2-35.0 786-4) RDW-SD (test code = 57.2 fL 38.5-51.6 H 59206-8) RDW-CV (test code = 21.3 % 12.1-15.4 H 788-0) PLT (test code = See_Comment [Automated 777-3) message] The sy stem which generated this result transmitted reference range : 150 - 328 10*3/ ?L. The reference r mera was not used to interpret this result as normal/abnormal . MPV (test code = 9.4 fL 9.8-13.0 L 15249-2) NRBC/100 WBC (test See_Comment [Automat ed code = 4199904938) message] The system which generated this result transmitted reference range : 0.0 - 10.0 /100 WBCs. The refer ence range was not u sed to interpret th is result as normal/abnormal . NRBC x10^3 (test code See_Comment [Auto mated = 3967773066) message] The s ystem which generated this result transmitted reference range : 10*3/?L. The reference range was not used to interpret this result as normal/abnormal . GRAN MAT (NEUT) % 70.7 % (test code = 770-8) IMM GRAN % (test code 0.60 % = 2371986701) LYMPH % (test code = 18.2 % 736-9) MONO % (test code = 6.9 % 5905-5) EOS % (test code = 2.9 % 713-8) BASO % (test code = 0.7 % 706-2) GRAN MAT x10^3(ANC) 8.99 10*3/uL 1.99-6.95 H (test code = 1852673005) IMM GRAN x10^3 (test 0.07 10*3/uL 0.00-0.06 H code = 3986565587) LYMPH x10^3 (test code 2.32 10*3/uL 1.09-3.23 = 731-0) MONO x10^3 (test code 0.88 10*3/uL 0.36-1.02 = 742-7) EOS x10^3 (test code = 0.37 10*3/uL 0.06-0.53 711-2) BASO x10^3 (test code 0.09 10*3/uL 0.01-0.09 = 704-7) Lab Interpretation Abnormal (test code = 50428-4) [facility] / [id number] 23:09:00 Test Item Value Reference Range Interpretation Comments PROTIME PATIENT (test See_Comment [Auto mated message] code = 5964-2) The system wh ich generated this result transmitted ref erence range: 12.0 - 1 4.7 Seconds. The re ference range was not u sed to interpret this result as normal/abnor mal. INR (test code = 6301-6) Nor mal INR <1.1; Warfarin Therap eutic range 2.0 to 3. 0 or 2.5 to 3.5, dep ending upon the indica tions. Lab Interpretation (test Normal code = 36645-4) [facility] / [id number] 23:09:00 Test Item Value Reference Range Interpretation Comments PROTIME PATIENT (test See_Comment [Auto mated message] code = 5964-2) The system [employer] generated this result transmitted ref erence range: 12.0 - 1 4.7 Seconds. The re ference range was not u sed to interpret this result as normal/abnor mal. INR (test code = 6301-6) Nor mal INR <1.1; Warfarin Therap eutic range 2.0 to 3. 0 or 2.5 to 3.5, dep ending upon the indica tions. Lab Interpretation (test Normal code = 19702-7) [facility] / [id number] 23:09:00 Test Item Value Reference Range Interpretation Comments PROTIME PATIENT (test See_Comment [Auto mated message] code = 5964-2) The system [employer] generated this result transmitted ref erence range: 12.0 - 1 4.7 Seconds. The re ference range was not u sed to interpret this result as normal/abnor mal. INR (test code = 6301-6) Nor mal INR <1.1; Warfarin Therap eutic range 2.0 to 3. 0 or 2.5 to 3.5, dep ending upon the indica tions. Lab Interpretation (test Normal code = 96081-5) [facility] [id number] 16:26:00 Test Item Value Reference Range Interpretation Comments Glucose Fingerstick 278 mg/dL 70-115 SWATCH PASTER Sneha (test code = WGLUC) Hilario Complete Blood Count Auto [id number] 09:28:00 Test Item Value Reference Range Interpretation Comments White Blood Count (test code = 9.8 x10 3/uL 4.4-10.5 N WBCT) Red Blood Count (test code = 2.80 x10 6/uL 4.10-5.70 L RBC) Hemoglobin (test code = HGBT) 7.9 g/dL 13.4-17.4 L Hematocrit (test code = HCTT) 25.1 % 38.7-52.0 L Mean Corpuscular Volume (test 89.60 fL 80.00-100.00 N code = MCV) Mean Corpuscular Hemoglobin 28.2 pg 27.0-32.5 N (test code = MCH) Mean Corpuscular HGB Conc 31.50 g/dL 32.00-37.50 L (test code = MCHC) RDW Coefficient of Variation 16.6 % 11.5-14.5 H (test code = RDWCV) Platelet Count (test code = 379.0 x10 3/uL 140.0-440.0 N PLTT) Mean Platelet Volume (test 9.7 fL code = MPV) Immature Granulocytes % (Auto) 0.3 % 0.0-5.0 N (test code = IMMGRAN%) Neutrophils % (Auto) (test 81.6 % 36.0-70.0 H code = NE%) Lymphocytes % (Auto) (test 8.7 % 12.0-44.0 L code = LY%) Monocytes % (Auto) (test code 7.2 % 0.0-11.0 N = MO%) Eosinophils % (Auto) (test 1.7 % 0.0-7.0 N code = EO%) Basophils % (Auto) (test code 0.5 % 0.0-2.0 N = BA%) Immature Granulocytes # (Auto) 0.03 x10 3/uL (test code = IMMGRAN#) Neutrophils # (Auto) (test 8.0 x10 3/uL 1.6-7.4 H code = NE#) Lymphocytes # (Auto) (test 0.86 x10 3/uL 0.50-4.60 N code = LY#) Monocytes # (Auto) (test code 0.71 x10 3/uL 0.00-1.20 N = MO#) Eosinophils # (Auto) (test 0.17 x10 3/uL 0.00-0.74 N code = EO#) Basophils # (Auto) (test code 0.05 x10 3/uL 0.00-0.21 N = BA#) nRBC Abs (test code = NRBCA) 0 nRBC Pct (test code = NRBCP) 0 % Comprehensive Metabolic [id number] 09:28:00 Test Item Value Reference Range Interpretation Comments SODIUM (test code = NA) 135.0 mmol/L 136.0-145.0 L Potassium,K (test code = K) 4.5 mmol/L 3.0-5.1 N Chloride (test code = CL) 99 mmol/L 98-107 N Carbon Dioxide (test code = CO2) 26 mmol/L 20-31 N Anion Gap (test code = GAP) 10 mmol/L 5-15 N Blood Urea Nitrogen (test code = 64 mg/dL 9-23 H BUN) Creatinine (test code = CREATT) 11.65 mg/dL 0.55-1.02 H Creatinine Clr Calc Pharmacy 11.01 mL/min (test code = CRCLPHA) Estimated GFR ( Beckie 6 mL/min/1.73m2 (test code = EGFRAA) Estimated GFR (Non Afr Beckie 5 mL/min/1.73m2 (test code = EGFRNAA) BUN/Creatinine Ratio (test code 5 ratio 10-20 L = BCRATIO) Glucose (test code = GLU) 339 mg/dL 74-106 H Osmolality,Calculated (test code 310.8 = OSMOC) Calcium (test code = CA) 7.4 mg/dL 8.3-10.6 L Bilirubin,Total (test code = < 0.2 mg/dL 0.2-1.1 L BILIT) Aspartate Amino Transferase 8 U/L 0-34 N (test code = AST) Alanine Aminotransferase (test < 7 U/L 10-49 L code = ALT) Total Protein (test code = TP) 5.6 g/dL 5.7-8.2 L Albumin Level (test code = ALB) 3.4 g/dL 3.2-4.8 N Globulin (test code = GLOB) 2.2 mg/dL 2.3-3.5 L Albumin/Globulin Ratio (test 1.5 ratio 0.8-2.0 N code = AGRATIO) Alkaline Phosphatase (test code 94 U/L 46-116 N = ALP) [id number] 09:28:00 Test Item Value Reference Range Interpretation Comments Phosphorous (test code = PHOS) 10.6 mg/dL 2.4-5.9 H [id number] 09:28:00 Test Item Value Reference Range Interpretation Comments Magnesium (test code = MG) 2.3 mg/dL 1.6-2.6 N Troponin [id number] 09:28:00 Test Item Value Reference Range Interpretation Comments Troponin I (test 2455.10 pg/mL 0.00-45.00 HH Critical v alue called code = TROP) to Chito emanuel ndread back by on: 04/18 at 0958by KBC05.Interpret jose david Comments:* The 99th percentile URL for the assay is <45 pg /ml.* A rise and fall i n Troponin I with at least onevalue above the 99th percen tile with clinical e vidence ofmyocardial is chemia would support a diagnosis of AM I. Adelta of at le ast 20% is recommended to assess acutecha nges in results above t he 99th percentile in serialmeasureme nts. Prothrombin Time [id number] 09:28:00 Test Item Value Reference Range Interpretation Comments Prothrombin Time (test code = 11.1 Seconds 9.8-13.4 N PT) INR (test code = INR) 1.0 ratio 0.6-1.2 N Partial Thromboplastin [id number] 09:28:00 Test Item Value Reference Range Interpretation Comments Partial Thromboplastin Time 31.80 Seconds 24.39-37.25 N (test code = PTT) Glucose [id number] 23:41:00 Test Item Value Reference Range Interpretation Comments Glucose Fingerstick 254 mg/dL 70-115 SWATCH PASTER Sarapnine (test code = WGLUC) Emenaini Glucose [id number] 18:25:00 Test Item Value Reference Range Interpretation Comments Glucose Fingerstick 318 mg/dL 70-115 SWATCH PASTER Krystal (test code = WGLUC) Juan arredondo Glucose [id number] 12:27:00 Test Item Value Reference Range Interpretation Comments Glucose Fingerstick 231 mg/dL 70-115 SWATCH PASTER Sneha (test code = WGLUC) Sulaiman SOFIA Test for H. [id number] 11:02:00 Test Item Value Reference Range Interpretation Comments SOFIA-test (test code = Urease negative. SOFIA-test) H.Pylori not detected in sample submitted. Media Verification (test SOFIA test media pass code = Media Verification) Complete Blood Count Auto [id number] 03:15:00 Test Item Value Reference Range Interpretation Comments White Blood Count (test code = 11.1 x10 3/uL 4.4-10.5 H WBCT) Red Blood Count (test code = 2.59 x10 6/uL 4.10-5.70 L RBC) Hemoglobin (test code = HGBT) 7.3 g/dL 13.4-17.4 L Hematocrit (test code = HCTT) 22.8 % 38.7-52.0 L Mean Corpuscular Volume (test 88.00 fL 80.00-100.00 N code = MCV) Mean Corpuscular Hemoglobin 28.2 pg 27.0-32.5 N (test code = MCH) Mean Corpuscular HGB Conc 32.00 g/dL 32.00-37.50 N (test code = MCHC) RDW Coefficient of Variation 16.6 % 11.5-14.5 H (test code = RDWCV) Platelet Count (test code = 313.0 x10 3/uL 140.0-440.0 N PLTT) Mean Platelet Volume (test 9.5 fL code = MPV) Immature Granulocytes % (Auto) 0.5 % 0.0-5.0 N (test code = IMMGRAN%) Neutrophils % (Auto) (test 81.3 % 36.0-70.0 H code = NE%) Lymphocytes % (Auto) (test 9.7 % 12.0-44.0 L code = LY%) Monocytes % (Auto) (test code 6.3 % 0.0-11.0 N = MO%) Eosinophils % (Auto) (test 1.7 % 0.0-7.0 N code = EO%) Basophils % (Auto) (test code 0.5 % 0.0-2.0 N = BA%) Immature Granulocytes # (Auto) 0.05 x10 3/uL (test code = IMMGRAN#) Neutrophils # (Auto) (test 9.0 x10 3/uL 1.6-7.4 H code = NE#) Lymphocytes # (Auto) (test 1.07 x10 3/uL 0.50-4.60 N code = LY#) Monocytes # (Auto) (test code 0.70 x10 3/uL 0.00-1.20 N = MO#) Eosinophils # (Auto) (test 0.19 x10 3/uL 0.00-0.74 N code = EO#) Basophils # (Auto) (test code 0.05 x10 3/uL 0.00-0.21 N = BA#) nRBC Abs (test code = NRBCA) 0.03 nRBC Pct (test code = NRBCP) 0.3 % Hepatic [id number] 03:15:00 Test Item Value Reference Range Interpretation Comments Bilirubin,Total (test code = 0.3 mg/dL 0.2-1.1 N BILIT) Bilirubin,Direct (test code = < 0.1 mg/dL 0.0-0.3 N BILID) Aspartate Amino Transferase (test 10 U/L 0-34 N code = AST) Alanine Aminotransferase (test < 7 U/L 10-49 L code = ALT) Total Protein (test code = TP) 5.4 g/dL 5.7-8.2 L Albumin Level (test code = ALB) 3.3 g/dL 3.2-4.8 N Albumin/Globulin Ratio (test code 1.6 ratio 0.8-2.0 N = AGRATIO) Alkaline Phosphatase (test code = 83 U/L 46-116 N ALP) Basic Metabolic [id number] 03:15:00 Test Item Value Reference Range Interpretation Comments SODIUM (test code = NA) 137.0 mmol/L 136.0-145.0 N Potassium,K (test code = K) 3.3 mmol/L 3.0-5.1 N Chloride (test code = CL) 101 mmol/L 98-107 N Carbon Dioxide (test code = CO2) 28 mmol/L 20-31 N Anion Gap (test code = GAP) 8 mmol/L 5-15 N Blood Urea Nitrogen (test code = 45 mg/dL 9-23 H BUN) Creatinine (test code = CREATT) 9.18 mg/dL 0.55-1.02 H Creatinine Clr Calc Pharmacy 13.98 mL/min (test code = CRCLPHA) Estimated GFR ( Beckie 7 mL/min/1.73m2 (test code = EGFRAA) Estimated GFR (Non Afr Beckie 6 mL/min/1.73m2 (test code = EGFRNAA) BUN/Creatinine Ratio (test code 5 ratio 10-20 L = BCRATIO) Glucose (test code = GLU) 121 mg/dL 74-106 H Osmolality,Calculated (test code 296.0 = OSMOC) Calcium (test code = CA) 7.9 mg/dL 8.3-10.6 L [id number] 03:15:00 Test Item Value Reference Range Interpretation Comments Phosphorous (test code = PHOS) 4.9 mg/dL 2.4-5.9 N [id number] 03:15:00 Test Item Value Reference Range Interpretation Comments Magnesium (test code = MG) 2.1 mg/dL 1.6-2.6 N Troponin [id number] 03:15:00 Test Item Value Reference Range Interpretation Comments Troponin I (test 4116.83 pg/mL 0.00-45.00 HH Critical v alue called code = TROP) to christ back by [place] on: 12/02/20 at 045 9by [id number].Interpret jose david Comments:* The 99th percentile URL for the assay is <45 pg /ml.* A rise and fall i n Troponin I with at least onevalue above the 99th percen tile with clinical e vidence ofmyocardial is chemia would support a diagnosis of AM I. Adelta of at le ast 20% is recommended to assess acutecha nges in results above t he 99th percentile in serialmeasureme nts. Prothrombin Time [id number] 03:15:00 Test Item Value Reference Range Interpretation Comments Prothrombin Time (test code = 11.9 Seconds 9.8-13.4 N PT) INR (test code = INR) 1.0 ratio 0.6-1.2 N Partial Thromboplastin [id number] 03:15:00 Test Item Value Reference Range Interpretation Comments Partial Thromboplastin Time 30.00 Seconds 24.39-37.25 N (test code = PTT) B-Type Natriuretic [id number] 03:15:00 Test Item Value Reference Range Interpretation Comments B-Type Natriuretic Peptide (test 1107.3 pg/mL 0.0-99.9 H code = BNP) Glucose [id number] 23:03:00 Test Item Value Reference Range Interpretation Comments Glucose Fingerstick 131 mg/dL 70-115 SWATCH PASTER Sarapnine (test code = WGLUC) Emenaini [id number] 11:40:00 Test Item Value Reference Range Interpretation Comments Magnesium (test code = MG) 2.3 mg/dL 1.6-2.6 N Troponin [id number] 11:40:00 Test Item Value Reference Range Interpretation Comments Troponin I (test 4321.94 pg/mL 0.00-45.00 HH Critical v alue called code = TROP) to christ back by DEDRICK on: at 1325by [id number].Interpret jose david Comments:* The 99th percentile URL for the assay is <45 pg /ml.* A rise and fall i n Troponin I with at least onevalue above the 99th percen tile with clinical e vidence ofmyocardial is chemia would support a diagnosis of AM I. Adelta of at le ast 20% is recommended to assess acutecha nges in results above t he 99th percentile in serialmeasureme nts. B-Type Natriuretic [id number] 11:40:00 Test Item Value Reference Range Interpretation Comments B-Type Natriuretic Peptide (test 1299.5 pg/mL 0.0-99.9 H code = BNP) Complete Blood Count Auto [id number] 11:40:00 Test Item Value Reference Range Interpretation Comments White Blood Count 12.3 x10 3/uL 4.4-10.5 H (test code = WBCT) Red Blood Count (test 2.02 x10 6/uL 4.10-5.70 L code = RBC) Hemoglobin (test code 5.6 g/dL 13.4-17.4 LL Critic al value = HGBT) called to minnie malin back by [Graciela BARNETTRN] on: 12/01/20 at 1234by [id number]. Hematocrit (test code 18.1 % 38.7-52.0 L = HCTT) Mean Corpuscular 89.60 fL 80.00-100.00 N Volume (test code = MCV) Mean Corpuscular 27.7 pg 27.0-32.5 N Hemoglobin (test code = MCH) Mean Corpuscular HGB 30.90 g/dL 32.00-37.50 L Conc (test code = MCHC) RDW Coefficient of 17.9 % 11.5-14.5 H Variation (test code = RDWCV) Platelet Count (test 333.0 x10 3/uL 140.0-440.0 N code = PLTT) Mean Platelet Volume 10.1 fL (test code = MPV) Immature Granulocytes 0.3 % 0.0-5.0 N % (Auto) (test code = IMMGRAN%) Neutrophils % (Auto) 83.5 % 36.0-70.0 H (test code = NE%) Lymphocytes % (Auto) 8.1 % 12.0-44.0 L (test code = LY%) Monocytes % (Auto) 6.2 % 0.0-11.0 N (test code = MO%) Eosinophils % (Auto) 1.6 % 0.0-7.0 N (test code = EO%) Basophils % (Auto) 0.3 % 0.0-2.0 N (test code = BA%) Immature Granulocytes 0.04 x10 3/uL # (Auto) (test code = IMMGRAN#) Neutrophils # (Auto) 10.3 x10 3/uL 1.6-7.4 H (test code = NE#) Lymphocytes # (Auto) 0.99 x10 3/uL 0.50-4.60 N (test code = LY#) Monocytes # (Auto) 0.76 x10 3/uL 0.00-1.20 N (test code = MO#) Eosinophils # (Auto) 0.20 x10 3/uL 0.00-0.74 N (test code = EO#) Basophils # (Auto) 0.04 x10 3/uL 0.00-0.21 N (test code = BA#) nRBC Abs (test code = 0.06 NRBCA) nRBC Pct (test code = 0.5 % NRBCP) Smear [id number] 11:40:00 Test Item Value Reference Range Interpretation Comments Platelet Estimate (test code = Normal Normal PLTEST) RBC Morphology (test code = RM) Abnormal Normal Hypochromasia (test code = HYPO) 3+ None Seen A Prothrombin Time [id number] 11:40:00 Test Item Value Reference Range Interpretation Comments Prothrombin Time (test code = 11.4 Seconds 9.8-13.4 N PT) INR (test code = INR) 1.0 ratio 0.6-1.2 N Partial Thromboplastin [id number] 11:40:00 Test Item Value Reference Range Interpretation Comments Partial Thromboplastin Time 30.50 Seconds 24.39-37.25 N (test code = PTT) Lactic [id number] 11:40:00 Test Item Value Reference Range Interpretation Comments Lactic Acid (test code = LACTIC) 0.8 mmol/L 0.5-2.0 N Hepatic [id number] 11:40:00 Test Item Value Reference Range Interpretation Comments Bilirubin,Total (test code = < 0.2 mg/dL 0.2-1.1 L BILIT) Bilirubin,Direct (test code = < 0.1 mg/dL 0.0-0.3 N BILID) Aspartate Amino Transferase (test 9 U/L 0-34 N code = AST) Alanine Aminotransferase (test < 7 U/L 10-49 L code = ALT) Total Protein (test code = TP) 5.4 g/dL 5.7-8.2 L Albumin Level (test code = ALB) 3.4 g/dL 3.2-4.8 N Albumin/Globulin Ratio (test code 1.7 ratio 0.8-2.0 N = AGRATIO) Alkaline Phosphatase (test code = 84 U/L 46-116 N ALP) Basic Metabolic [id number] 11:40:00 Test Item Value Reference Range Interpretation Comments SODIUM (test code = NA) 134.0 mmol/L 136.0-145.0 L Potassium,K (test code = K) 4.3 mmol/L 3.0-5.1 N Chloride (test code = CL) 99 mmol/L 98-107 N Carbon Dioxide (test code = CO2) 27 mmol/L 20-31 N Anion Gap (test code = GAP) 8 mmol/L 5-15 N Blood Urea Nitrogen (test code = 73 mg/dL 9-23 H BUN) Creatinine (test code = CREATT) 11.58 mg/dL 0.55-1.02 H Creatinine Clr Calc Pharmacy 8.04 mL/min (test code = CRCLPHA) Estimated GFR ( Beckie 6 mL/min/1.73m2 (test code = EGFRAA) Estimated GFR (Non Afr Beckie 5 mL/min/1.73m2 (test code = EGFRNAA) BUN/Creatinine Ratio (test code 6 ratio 10-20 L = BCRATIO) Glucose (test code = GLU) 365 mg/dL 74-106 H Osmolality,Calculated (test code 314.0 = OSMOC) Calcium (test code = CA) 8.2 mg/dL 8.3-10.6 L [id number] 11:40:00 Test Item Value Reference Range Interpretation Comments Phosphorous (test code = PHOS) 6.1 mg/dL 2.4-5.9 H"
--- NOTE | 2023-03-27 16:46 | RAD REPORT ---
EXAM DESCRIPTION: RAD - Foot Left 3 View - 03/27/2023 4:01 pm CLINICAL HISTORY: PAIN COMPARISON: No comparisons TECHNIQUE: Left foot, 3 views. FINDINGS: No fracture, dislocation or periosteal reaction. No air or foreign body in the soft tissues. Vascular calcifications. IMPRESSION: Negative left foot radiographs.
--- NOTE | 2023-03-27 17:47 | ER ---
Nurse's Notes [facility] Name: Abhinav John Age: 42 yrs Sex: Male : 1980 Arrival Date: 03/27/2023 Time: 14:26 Bed 9 Private MD: Diagnosis: Pain in left foot Presentation: 03/27 14:33 Chief complaint: [place] and heard a loud pop in left foot while walking yesterday, c/o hb left foot pain 09/07. Coronavirus screen: At this time, the client does not indicate any symptoms associated with coronavirus-19. Ebola Screen: No symptoms or risks identified at this time. Initial Sepsis Screen: Does the patient meet any 2 criteria? No. Patient's initial sepsis screen is negative. Does the patient have a suspected source of infection? No. Patient's initial sepsis screen is negative. Risk Assessment: Do you want to hurt yourself or someone else? Patient reports no desire to harm self or others. Onset of symptoms was March 26, 2023. 14:33 Method Of Arrival: Ambulatory hb 14:33 Acuity: KASEY 4 hb Historical: - Allergies: 14:34 No Known Allergies; hb - Home Meds: 14:34 Calci-Chew Oral [Active]; Insulin: Novolin R Sub-Q [Active]; losartan Oral [Active]; hb Metoprolol Tartrate Oral [Active]; - PMHx: 14:34 Diabetes - NIDDM; ESRD; HD M-W-F; Hypertension; hb - Immunization history:: Adult Immunizations up to date. - Social history:: Smoking status: Patient denies any tobacco usage or history of. Screenin:00 [facility] ED Fall Risk Assessment (Adult) History of falling in the last 3 months, nj1 including since admission No falls in past 3 months (0 pts) Confusion or Disorientation No (0 pts) Intoxicated or Sedated No (0 pts) Impaired Gait No (0 pts) Mobility Assist Device Used No (0 pt) Altered Elimination No (0 pt) Score/Fall Risk Level 0 - 2 = Low Risk Oriented to surroundings, Maintained a safe environment, Hourly rounding (assess needs \T\ fall precautionary measures) done. 16:00 Abuse screen: Denies threats or abuse. Denies injuries from another. Nutritional nj1 screening: No deficits noted. Tuberculosis screening: No symptoms or risk factors identified. Assessment: 16:00 General: Appears in no apparent distress. comfortable, Behavior is calm, cooperative, nj1 appropriate for age. Pain: Complains of pain in left foot Pain currently is 10 out of 10 on a pain scale. Neuro: Level of Consciousness is awake, alert, obeys commands, Oriented to person, place, time, situation. Cardiovascular: Patient's skin is warm and dry. Respiratory: Airway is patent Respiratory effort is even, unlabored. Musculoskeletal: Reports pain in left foot. 18:00 Reassessment: Patient appears in no apparent distress at this time. Patient and/or nj1 family updated on plan of care and expected duration. Pain level reassessed. Patient is alert, oriented x 3, equal unlabored respirations, skin warm/dry/pink. Pt out of bed, by door, ready to go home. Declines offered wheelchair. Vital Signs: 14:33 BP 160 / 96; Pulse 81; Resp 16; Temp 97.5; Pulse Ox 100% on R/A; Weight 108.86 kg; hb Height 6 ft. 3 in. ; Pain 10/10; 14:33 Body Mass Index 30.00 (108.86 kg, 190.5 cm) hb 14:33 Pain Scale: Adult hb ED Course: 14:27 Patient arrived in ED. ts1 14:29 Mukesh Parham DO is Attending Physician. ms3 14:34 Triage completed. hb 14:34 Arm band placed on. hb 15:36 Cara Veloz, RN is Primary Nurse. nj1 16:00 Patient has correct armband on for positive identification. Bed in low position. Call nj1 light in reach. 16:03 Foot Left 3 View XRAY In Process Unspecified. EDMS 17:47 Jitendra Bella MD is Referral Physician. ms3 18:03 No provider procedures requiring assistance completed. Patient did not have IV access nj1 during this emergency room visit. Administered Medications: No medications were administered Medication: 18:03 VIS not applicable for this client. nj1 Outcome: 17:47 Discharge ordered by . ms3 18:00 Discharged to home ambulatory. nj1 18:00 Condition: stable 18:00 Discharge instructions given to patient, Instructed on discharge instructions, follow up and referral plans. Demonstrated understanding of instructions, follow-up care. 18:04 Patient left the ED. nj1 Signatures: Dispatcher [employer] EDRubi Frey RN RN hb Mukesh Parham, DO ms3 Cara Veloz RN RN nj1 Zoraida [place], PAS PAS ts1 Corrections: (The following items were deleted from the chart) 14:35 14:33 BP 158 / 88; Pulse 81bpm; Resp 16bpm; Pulse Ox 100% RA; Temp 97.5F; 108.86 kg; hb Height 6 ft. 3 in.; BMI: 30.0; Pain 10/, Adult; hb
--- NOTE | 2023-03-27 17:47 | EDPHYS ---
Physician Documentation [facility] Name: Abhinav John Age: 42 yrs Sex: Male : 1980 Arrival Date: 03/27/2023 Time: 14:26 Bed 9 Private MD: ED Physician Mukesh Parham HPI: 03/27 14:42 This 42 yrs old Black Male presents to ER via Ambulatory with complaints of Foot Pain. ms3 14:42 42-year-old male with past medical history of diabetes, end-stage renal disease, ms3 hypertension presents for left foot pain that began yesterday. Patient states he was walking when he felt his left foot. Patient states pain is 10/10 and describes throbbing. Patient states pain is worse with walking. Historical: - Allergies: 14:34 No Known Allergies; hb - Home Meds: 14:34 Calci-Chew Oral [Active]; Insulin: Novolin R Sub-Q [Active]; losartan Oral [Active]; hb Metoprolol Tartrate Oral [Active]; - PMHx: 14:34 Diabetes - NIDDM; ESRD; HD M-W-F; Hypertension; hb - Immunization history:: Adult Immunizations up to date. - Social history:: Smoking status: Patient denies any tobacco usage or history of. ROS: 14:42 Constitutional: Negative for fever, and chills. Neck: Negative for injury, pain, and ms3 swelling, Cardiovascular: Negative for chest pain, and palpitations. Respiratory: Negative for shortness of breath, cough, wheezing, and pleuritic chest pain, Abdomen/GI: Negative for abdominal pain, nausea, vomiting, diarrhea, and constipation. 14:42 MS/extremity: Positive for injury or acute deformity. Exam: 18:05 Constitutional: This is a well developed, well nourished patient who is awake, alert, ms3 and in no acute distress. Head/Face: Normocephalic, atraumatic. Neck: Trachea midline, no cervical lymphadenopathy. Supple, full range of motion without nuchal rigidity, or vertebral point tenderness. No Meningismus. Chest/axilla: Normal chest wall appearance and motion. Nontender with no deformity. Cardiovascular: Regular rate and rhythm with a normal S1 and S2. No gallops, murmurs, or rubs. Normal PMI, no JVD. No pulse deficits. Respiratory: Lungs have equal breath sounds bilaterally, clear to auscultation and percussion. No rales, rhonchi or wheezes noted. No increased work of breathing, no retractions or nasal flaring. 18:05 Skin: Fish hook in left 4th digit. Vital Signs: 14:33 BP 160 / 96; Pulse 81; Resp 16; Temp 97.5; Pulse Ox 100% on R/A; Weight 108.86 kg; hb Height 6 ft. 3 in. ; Pain 10/10; 14:33 Body Mass Index 30.00 (108.86 kg, 190.5 cm) hb 14:33 Pain Scale: Adult hb MDM: 15:02 Patient medically screened. ms3 18:04 Data reviewed: vital signs, nurses notes, and as a result, I will discharge patient. I ms3 considered the following discharge prescriptions or medication management in the emergency department Medications were administered in the Emergency Department. See MAR. Counseling: I had a detailed discussion with the patient and/or guardian regarding: the historical points, exam findings, and any diagnostic results supporting the discharge/admit diagnosis, the need for outpatient follow up, to return to the emergency department if symptoms worsen or persist or if there are any questions or concerns that arise at home. Response to treatment: the patient's symptoms have resolved after treatment, and as a result, I will discharge patient. Special discussion: I discussed with the patient/guardian in detail that at this point there is no indication for admission to the hospital. It is understood, however, that if the symptoms persist or worsen the patient needs to return immediately for re-evaluation. 03/27 14:42 Order name: Foot Left 3 View XRAY; Complete Time: 17:41 ms3 Administered Medications: No medications were administered Disposition Summary: 03/27/23 17:47 Discharge Ordered Location: Home ms3 Condition: Stable ms3 Diagnosis - Pain in left foot ms3 Followup: ms3 - With: Jitendra Bella MD - When: 2 - 3 days - Reason: Recheck today's complaints Discharge Instructions: - Discharge Summary Sheet ms3 - Musculoskeletal Pain ms3 - Foot Pain ms3 Forms: - Medication Reconciliation Form ms3 - Thank You Letter ms3 - Antibiotic Education ms3 - Prescription Opioid Use ms3 Signatures: Dispatcher [employer] EDRubi Frey RN RN hb Mukesh Parham DO DO ms3 Corrections: (The following items were deleted from the chart) 17:55 14:42 This 42 yrs old Black Male presents to ER via Ambulatory with complaints of Foot ms3 Pain. ms3
[2023-03-27 18:09] VITALS: BP 160/96; TEMP 97.5; O2SAT 100
== END 2023-03-27 18:04 | disposition home or self-care (01) ==
LOC: ER 14:26
DX: M79.672 Pain in left foot (principal)
CPT/HCPCS: 99283

== ENCOUNTER 2023-07-14 12:12 | Emergency (ER) | payer OTHER ==
--- OUTSIDE RECORDS SUMMARY | 2023-07-14 12:31 | XMS REPORT | Continuity of Care Document ---
:1980 Author Organization [facility] t Address [address] [place] [address] Care Team Providers Name Role Phone Donavan Dunlap Primary Care Physician Donavan Dunlap Attending Clinician Unavailable Jose Alvarez Attending Clinician Unavailable Rohini FERRIS, Sarah Lr N Attending Clinician [phone] Radha Garcia MA Attending Clinician Unavailable Doctor Unassigned, [place] Attending Clinician Unavailable Zoraida Loya Attending Clinician Tamiko Caldwell MD, Duane Attending Clinician Ricco Cooper DO Attending Clinician Yisel FERRIS, Mehran Attending Clinician Jonn Geronimo MD Attending Clinician Purnima Gibbs MD Attending Clinician Ana FERRIS, Ney Attending Clinician NEY BURNS Attending Clinician Unavailable Tanvir Vega MD Attending Clinician Nora FERRIS, Mu Garcia Attending Clinician Brigid Julian MD Attending Clinician Transplant, Tdc Attending Clinician Unavailable Fifi Dunlap MD Attending Clinician Unavailable Kerwin Dill MD Attending Clinician Jose Alvarez Admitting Clinician [...] d type d type 00 Medical Branch Elevated Elevated Disease Active Overview: Un inge troponin troponin 6-11 Formattin ity of 00:00: g of this [place] note Medical might be Branch different from the original. Added automatic ally from request for surgery [id number] Gastrointe Gastrointe Disease Active U nivers stinal stinal 6-11 ity of hemorrhage hemorrhage [place]: [place] , , 00 Medical unspecifie unspecifie Br anch d d gastrointe gastrointe stinal stinal hemorrhage hemorrhage type type Elevated Elevated Disease Active Overview: Un inge troponin troponin 6-11 Formattin ity of 00:00: g of this [place] 00 note Medical might be Branch different from the original. 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 Spirit dialysis - [facility] [id number] Atrial Problem Common fibrillati Spirit on, - [facility] unspecifie [facility] [id number] HTN, goal Problem Comm on below Spirit 130/80 - [facility] [id number] End stage Problem Comm on renal Spirit disease - [facility] [id number] Chronic Problem Commo n pain Spirit syndrome - [facility] [id number] Anemia of Problem Com mon chronic Spirit disease - [facility] [id number] Tobacco Problem Commo n use Spirit disorder - [facility] [id number] Type 2 Problem Common diabetes Spirit mellitus - [facility] with [facility] kidney Center disease [id number] Anemia in Problem Com mon chronic Spirit kidney - [facility] disease [facility] [id number] Mixed Problem Common hyperlipid Spirit emia - [facility] [id number] Anemia, Problem Commo n chronic Spirit disease - [facility] [id number] Erectile Problem Comm on dysfunctio Spirit n, - [facility] unspecifie [facility] dysfunctio Medica l n type [place] [id number] Other Problem Common obesity Spirit due to - [facility] excess [facility] [id number] Body mass Problem Com mon index Spirit [BMI] [facility] 30.0-30.9[facility] Allergies, Adverse Reactions, Alerts Allergy Allergy Status Severity Reaction(s) Onset Inactive Treating Comm ents Source Name Type Date Date Clinician No Known DA Active U [facility] Drug 1-03 Allergie 00:00: s 00 NO KNOWN Drug Active Univers ALLERGIE Class ity of S [place] [facility] Social History Social Habit Start Date Stop Date Quantity Comments Source History of Tobacco Current Smoker Co mmon Spirit - Use [facility] Gender identity Universit y of [place] [facility] Sexual orientation Univer sity of [place] [facility] Alcohol intake 2022-05-13 2022-05-13 0 /d University of 00:00:00 00:00:00 [place] [facility] History of Social 2022-05-13 2022-05-13 Univers ity of function 00:00:00 00:00:00 [place] [facility] Exposure to 2022-04-29 2022-05-09 Not sure University of SARS-CoV-2 (event) 00:00:00 22:59:00 [place] [facility] Tobacco use and 2022-05-09 2022-05-09 Smokeless Universit y of exposure 00:00:00 00:00:00 tobacco non-user [facility] Education 2022-05-092022-05-09 13 [facility] 00:00:00 00:00:00 [place] [facility] Tobacco Comment 2022-05-09 2022-05-09 1 1/2 pack per Unive rsity of 00:00:00 00:00:00 day [place] [facility] Sex Assigned At [birth year] [facility] 00:00:00 00:00:00 Medical Center Smoking Status Start Date Stop Date Source Current Smoker 2022-10-30 00:00:00 Common Spiri t - [facility] Ex-smoker 2017-01-26 00:00:00 2017-01-26 00:00:00 [facility] Medications Ordered Filled Start Stop [...] Starting [place] injection 00 on Wed Medical 05/13/22 at Branch 1226, Until Discontinu ed, Routine, CV Intraproce dure lidocaine 2021-0 No ONCE INTRA U nivers 1% (PF) 05-1315 PROCEDURE, ity o f (XYLOCAINE) 17:26: 18:08 Starting [place] injection 00 :50 on Wed Medical 05/13/22 at Branch 1226, Until Wed05/13/22 at 1308, Routine, CV Intraproce dure midazolam 2022-0 Yes ONCE INTRA Un inge (VERSED) 6-15 PROCEDURE, ity o f injection 17:14: [place] 56 on Wed05/13/22 at Branch 1214, Until Discontinu ed, Routine, CV Intraproce dure midazolam 2021-0 2021- No ONCE INTRA U nivers (VERSED) 05-13 PROCEDURE, ity of injection 17:14: 18:08 Starting [place] as 56 :50 on Wed05/13/22 at Branch 1214, Until Wed05/13/22 at 1308, Routine, CV Intraproce dure FENTanyl PF 2021-0 Yes ONCE INTRA Univers (SUBLIMAZE 15 PROCEDURE, ity of (PF)) 17:14: Starting [place] injection 46 on Wed05/13/22 at Branch 1214, Until Discontinu ed, Routine, CV Intraproce dure FENTanyl PF 2021-0 2021- No ONCE INTRA Univers (SUBLIMAZE 05-13- PROCEDURE, it y of (PF)) 17:14: 18:08 Starting [place] injection 46 :50 on Wed05/13/22 at Branch 1214, Until Wed05/13/22 at 1308, Routine, CV Intraproce dure metoprolol 2021-0 Yes 25mg 25 mg, Unive rs tartrate 6-15 Oral, BID, ity o f (LOPRESSOR) 01:00: First dose [place] tablet 25 00 on Wed Medical mg 05/12/22 at Branch 2000, Until Discontinu ed, Routine pantoprazol 2021-0 Yes 40mg 40 mg, Univ ers e 6-15 Slow IV ity of (PROTONIX) 01:00: Push, [place] injection 00 Q12H, Medical 40 mg First dose Branch on Wed05/12/22 at 1999, Until Discontinu ed metoprolol 2021-0 Yes 25mg 25 mg, Unive rs tartrate 6-15 Oral, BID, ity o f (LOPRESSOR) 01:00: First dose [place] tablet 25 00 on Wed Medical mg 05/12/22 at Branch 1999, Until Discontinu ed, Routine pantoprazol 2021-0 Yes 40mg 40 mg, Univ ers e 6-15 Slow IV ity of (PROTONIX) 01:00: Push, [place] injection 00 Q12H, Medical 40 mg First dose Branch on Wed05/12/22 at 1999, Until Discontinu ed doxycycline 2021- No 100mg 100 mg, U nivers hyclate 05-13 Oral, BID, ity o f (Vibramycin 01:00: 00:59 20 doses, [place] ) capsule 00 :00 First dose Medi ai 100 mg on Wed Branch 05/12/22 at 1999, Last dose on Wed05/22/22 at 0800, BETH
Re ason for Anti-Infec tive: Documented Infection< br>Documen corie Infection Site: Skin / Soft Tissue
Duration of Therapy: 14 days doxycycline 2021- No 100mg 100 mg, U nivers hyclate 05-13 Oral, BID, ity o f (Vibramycin 01:00: 00:59 20 doses, [place] ) capsule 00 :00 First dose Medi ai 100 mg on Wed Branch 05/12/22 at 1999, Last dose on Wed05/22/22 at 0800, BETH
Re ason for Anti-Infec tive: Documented Infection< br>Documen corie Infection Site: Skin / Soft Tissue
Duration of Therapy: 14 days doxycycline 2021- No 100mg 100 mg, U nivers hyclate 05-13 Oral, BID, ity o f (Vibramycin 01:00: 17:46 20 doses, [place] ) capsule 00 :46 First dose Medi ai 100 mg on Wed Branch 05/12/22 at 1999, Last dose on Wed05/22/22 at [...] mg First dose Branch on Wed05/12/22 at 2000, Until Discontinu ed NaCl 0.9% 2021- No 500mL at 42 [facility] rs (NS) IV 05-1214 mL/hr, IV ity of infusion 14:45: 23:50 Infusion, [place]abe[place] as 500 mL 00 :01 CONTINUOUS Medical , Starting Branch on Wed05/12/22 at 0945, Until Wed05/12/22 at 1850, Routine
Use 60 drop tubing!!<b r>DSU Pre-op simethicone 2021- No PRN, [facility] rs (GAS RELIEF 05-12 Starting ity of (SIMETHICON 14:22: 14:39 on Wed [place] as E)) 40 00 :55 05/12/22 at Medical mg/0.6 mL 0922, Branch drops Until Wed05/12/22 at 0939, Routine, Intra-op HYDROcodone 0 Yes 1{tbl} 1 tablet, Univers -acetaminop 6-13 Oral, ity of hen (NORCO 23:59: Q6HPRN, [place] 5) 5-325 mg 13 Starting Medi ai tablet 1 on Wed Branch tablet 05/11/22 at 1859, Until Discontinu ed, Routine, Pain (scale 4-6) HYDROcodone 0 Yes 1{tbl} 1 tablet, Univers -acetaminop 6-13 Oral, ity of hen (NORCO 23:59: Q6HPRN, [place] 5) 5-325 mg 13 Starting Medi ai tablet 1 on Wed Branch tablet 05/11/22 at 1859, Until Discontinu ed, Routine, Pain (scale 4-6) HYDROcodone 0 2021- No 1{tbl} 1 tablet, Univers -acetaminop 6-13 06-16 Oral, ity of hen (NORCO 23:59: 17:46 Q6HPRN, [place] 5) 5-325 mg 13 :46 Starting Medi ai tablet 1 on Wed Branch tablet 05/11/22 at 1859, Until Jessica 05/14/22 at 1246, Routine, Pain (scale 4-6) dextrometho 2022-0 Yes 5mL 5 mL, Unive rs rphan-guaif 05-11 Oral, ity of enesin 15:33: Q6HPRN, [place] (ROBITUSSIN 31 Starting [facility] DM) 10-100 on Wed Branch mg/5 mL 05/11/22 at solution 5 1033, mL Until Discontinu ed, Routine, Cough dextrometho 2021-0 Yes 5mL 5 mL, Unive rs rphan-aif 05-11 Oral, ity of enesin 15:33: Q6HPRN, [place] (ROBITUSSIN 31 Starting [facility] DM) 10-100 on Wed Branch mg/5 mL 05/11/22 at solution 5 1033, mL Until Discontinu ed, Routine, Cough dextrometho 2021-0 202- No 5mL 5 mL, Univ ers rphan-guaif 05-11 Oral, ity of enesin 15:33: 17:46 Q6HPRN, [place] (ROBITUSSIN 31 :46 Starting [facility] DM) 10-100 on [facility] Branch mg/5 mL 05/11/22 at solution 5 1033, mL Until Jessica 05/14/22 at 1246, Routine, Cough aspirin 2021-0 Yes 81mg 81 mg, Univers chewable - Oral, ity of tablet 81 14:00: DAILY, [place] mg 00 First dose Medical on [facility] 05/11/22 at 0900, Until Discontinu ed, Routine aspirin 2021-0 Yes 81mg 81 mg, Univers chewable - Oral, ity of tablet 81 14:00: DAILY, [place] mg 00 First dose Medical on [facility] 05/11/22 at 0900, Until Discontinu ed, Routine aspirin 202-0 202- No 81mg 81 mg, Univers chewable 05-11-16 Oral, ity of tablet 81 14:00: 17:46 DAILY, [place] mg 00 :46 First dose Medical on [facility] 05/11/22 at 0900, Until Discontinu ed, Routine nitroglycer 2021-0 Yes .5[in_u 0.5 Inch, Univers in (NITROL) 6-13 s] Transderma it y of 2 % 11:00: l (Apply [place] ointment 00 To Skin), Medica l 0.5 Inch Q6HHOL, [place] First dose on Wed05/11/22 at 0600, Until Discontinu ed, Routine nitroglycer 2021-0 Yes .5[in_u 0.5 Inch, Univers in (NITROL) 05-11 s] Transderma it y of 2 % 11:00: l (Apply [place] ointment 00 To Skin), Medica l 0.5 Inch Q6HHOL, Branch First dose on Wed05/11/22 at 0600, Until Discontinu ed, Routine nitroglycer 2021- No .5[in_u 0.5 Inch, Univers in (NITROL) 05-11 06-16 s] Transderma i ty of 2 % 11:00: 17:46 l (Apply [place] ointment 00 :46 To Skin), Medica l 0.5 Inch Q6HHOL, Branch First dose on Wed05/11/22 at 0600, Until Discontinu ed, Routine morpHINE (2 0 Yes 2mg 2 mg, Slow Univers mg/mL) 05-11 IV Push, ity of injection 2 10:35: Q4HPRN, [place] mg 33 Starting Medical on Wed [place] 05/11/22 at 0535, Until Discontinu ed, Routine, Pain (scale 7-10) morpHINE (2 2021-0 Yes 2mg 2 mg, Slow Univers mg/mL) 05-11 IV Push, ity of injection 2 10:35: Q4HPRN, [place] mg 33 Starting Medical on Wed [place] 05/11/22 at 0535, Until Discontinu ed, Routine, Pain (scale 7-10) morpHINE (2 2021-0 2021- No 2mg 2 mg, Slow Univers mg/mL) 05-1116 IV Push, ity of injection 2 10:35: 17:46 Q4HPRN, [place] mg 33 :46 Starting Medical on Wed [place] 05/11/22 at 0535, Until [place] 05/14/22 at 1246, Routine, Pain (scale 7-10) mupirocin 0 Yes Nasal, Univer s (BACTROBAN 05-11 Q12H, For ity of NASAL OINT) 03:29: 5 days, [place] as 2 % nasal 57 First dose Medi ai ointment conditiona Branc h l, Routine mupirocin 0 Yes Nasal, Univer s (BACTROBAN 6-13 Q12H, For ity of NASAL OINT) 03:29: 5 days, [place] 2 % nasal 57 First dose Medi ai ointment conditiona Branc h l, Routine mupirocin 2021- No Nasal, Unive rs (BACTROBAN 6 06-16 Q12H, For ity of NASAL OINT) 03:29: 17:46 5 days, [place] 2 % nasal 57 :46 First dose Medi ai ointment conditiona Branc h l, Routine atorvastati Yes 40mg 40 mg, Univ ers n (LIPITOR) 6-13 Oral, QHS, it y of tablet 40 02:00: First dose [place] mg 00 on [facility] 05/10/22 at [place] 2100, Until Discontinu ed, Routine atorvastati Yes 40mg 40 mg, Univ ers n (LIPITOR) 6-13 Oral, QHS, it y of tablet 40 02:00: First dose [place] mg 00 on [facility] 05/10/22 at [place] 2100, Until Discontinu ed, Routine atorvastati 2021- No 40mg 40 mg, Uni vers n (LIPITOR) 6 06-16 Oral, QHS, i ty of tablet 40 02:00: 17:46 First dose [place] mg 00 :46 on [facility] 05/10/22 at Branch 2100, Until Discontinu ed, Routine HEPARIN 2021- No 4000U 4,000 Univers SODIUM 05-10-12 Units, IV ity of (PORCINE) 22:00: 22:33 Push, [place] 1,000 00 :00 ONCE, 1 Medical UNIT/ML dose, On Branch BOLUS ACS Sun ORDER SET 05/10/22 at 1700, BETH heparin Yes 3000U FOR Univers (1,000 6-12 REBOLUSING ity of unit/mL, 10 21:44: , Starting [place] mL vial) 39 on [facility] for 05/10/22 at [place] Rebolusing 1644, Until Discontinu ed, Routine
Dosing based on aPPT testing parameters (refer to continuous heparin drip order).
heparin 2022-0 Yes 3000U FOR Univers (1,000 6-12 REBOLUSING ity of unit/mL, 10 21:44: , Starting [place] mL vial) 39 on [facility] for 05/10/22 at [place] [facility], Until Discontinu ed, Routine
Dosing based on aPPT testing parameters (refer to continuous heparin drip order).
heparin 2021- No 3000U FOR Univers (1,000 6-12 06-16 REBOLUSING ity of unit/mL, 10 21:44: 17:46 , Starting [place] mL vial) 39 :46 on [facility] for 05/10/22 at Branch Rebolusing 1644, Until Jessica 05/14/22 at 1246, Routine
Dosing based on aPPT testing parameters (refer to continuous heparin drip order).
heparin 2021- No 1000U/h 1,000 Unive rs 25,000 6- 06-13 Units/hr ity of Units/250 21:44: 15:51 (10 [place] mL 39 :26 mL/hr), IV Medical (Premixed Infusion, Branc h Bag) in TITRATE, 0.45 % NS Parameters in Admin. Instr., Starting on [place] 05/10/22 at 1644
CA UTION - If [...] OR INITIAL INFUSION RATE.
sulfur 2021- No [id number] 5mL 5 mL, Unive rs hexafluorid 05-10 Intravenou i ty of e microsphr 20:30: 19:30 s, ONCE, [place] (LUMASON) 00 :00 dose, On Medica l injection 5 Sun Branch mL 05/10/22 at 1530, Routine
interior design faculty member approving Restricted medication : FLAKITA HAYES aspirin 2021- No 325mg 325 mg, Unive rs tablet 325 05-10 Oral, ity of mg 17:30: 16:48 ONCE, 1 [place] 00 :00 dose, On Medical Sun Branch 05/10/22 at 1230, Routine Sliding Yes Subcutaneo Univ ers Scale - us, TID ity of Insulin - 17:00: MEALS+HS, [place] as Lispro 00 First dose Medical (HumaLOG) + on Sun Branch Fsbg 05/10/22 at Testing 1200, Until Discontinu ed, Routine Sliding Yes Subcutaneo Univ ers Scale 05-10 us, TID ity of Insulin - 17:00: MEALS+HS, [place] as Lispro 00 First dose Medical (HumaLOG) + on Sun Branch Fsbg 05/10/22 at Testing 1200, Until Discontinu ed, Routine Sliding 2021- No Subcutaneo Uni vers Scale 05-10 , TID ity of Insulin - 17:00: 17:46 MEALS+HS, [place] Lispro 00 :46 First dose Medical (HumaLOG) + on Sun Branch Fsbg 05/10/22 at Testing 1200, Until Discontinu ed, Routine dextrose 0 Yes 250mL 250 mL, IV Un inge 10% (D10W) 6-12 Infusion, ity of bolus 13:29: PRN - SEE [place] infusion 29 INSTRUCTIO Medic al 250 mL NS, Branch hypoglycem ia, Starting on 05/10/22 at 0829
De xtrose 10% 250 [...] 250 mL, IV Un inge 10% (D10W) 6-12 Infusion, ity of bolus 13:29: PRN - SEE [place] infusion 29 INSTRUCTIO Medic al 250 mL NS, Branch hypoglycem ia, Starting on 05/10/22 at 0829
De xtrose 10% 250 mL bag contains:& nbsp;10 gm = 100 mL 20 gm = 200 mL 25 gm = 250 mL (whole bag) The maximum rate at which dextrose can be infused without producing glycosuria is 0.5 g/kg/hour. &nbs p;BUD: If wrapper is open bag is good for 30 days at room temperatur e. <b r> dextrose 2021-0 2021- No 250mL 250 mL, IV U nivers 10% (D10W) 6 06-16 Infusion, ity of bolus 13:29: 17:46 PRN - SEE [place] infusion 29 :46 INSTRUCTIO Medic al 250 mL NS, Branch hypoglycem ia, Starting on 05/10/22 at 0829
De xtrose 10% 250 [...] mg 05/10/22 at 0829, Until Discontinu ed, BEHT, Blood Glucose < or = 70 mg/dL and patient is unable to swallow or has mental changes. glucagon 2021-0 Yes 1mg 1 mg, Univers (GLUCAGEN 6-12 Intramuscu ity of DIAGNOSTIC 13:29: lar, PRN, [place] KIT) 26 Starting Medical injection 1 on Sun Branch mg 05/10/22 at 0829, Until Discontinu ed, BETH, Blood Glucose < or = 70 mg/dL and patient is unable to swallow or has mental changes. glucagon 2021-0 2022- No 1mg 1 mg, Univers (GLUCAGEN 612 -16 Intramuscu ity of DIAGNOSTIC 13:29: 17:46 lar, PRN, [place] KIT) 26 :46 Starting Medical injection 1 on Sun Branch mg 05/10/22 at 0829, Until Jessica 05/14/22 at 1246, BETH, Blood Glucose < or = 70 mg/dL and patient is unable to swallow or has mental changes. ondansetron 2-0 Yes 4mg 4 mg, Slow Univers (ZOFRAN 6-12 IV Push, ity of (PF)) 04:00: Q6HPRN, [place] injection 4 20 Starting Medi ai mg on Sat Branch 05/09/22 at 2300, Until Discontinu ed, Routine, Nausea and Vomiting (N/V) ondansetron 2022-0 Yes 4mg 4 mg, Slow Univers (ZOFRAN 6-12 IV Push, ity of (PF)) 04:00: Q6HPRN, [place] injection 4 20 Starting Medi ai mg on Sat Branch 05/09/22 at 2300, Until Discontinu ed, Routine, Nausea and Vomiting (N/V) ondansetron 2022-0 2022- No 4mg 4 mg, Slow Univers (ZOFRAN 05-10 IV Push, ity of (PF)) 04:00: 17:46 Q6HPRN, [place] injection 4 20 :46 Starting Medi ai mg on Sat Branch 05/09/22 at 2300, Until Jessica 05/14/22 at 1246, Routine, Nausea and Vomiting (N/V) acetaminoph 0 Yes 650mg 650 mg, Un inge en 05-10 Oral, ity of (TYLENOL) 04:00: Q6HPRN, [place] tablet 650 13 Starting Medic al mg on Sat Branch 05/09/22 at 2300, Until Discontinu ed, Routine, Pain (scale 1-3) acetaminoph 0 Yes 650mg 650 mg, Un inge en [...] No 8mg/h 8 mg/hr U nivers e 05-10 (50 ity of (PROTONIX) 00:45: 17:23 mL/hr), IV [place] 80 mg in 00 :40 Infusion, Medica l NaCl 0.9% CONTINUOUS Bran ch (NS) 500 mL , Starting infusion on 05/09/22 at 1945 pantoprazol 2021-0 2021- No 80mg 80 mg, IV Univers e 05-10 Push, ity of (PROTONIX) 00:45: 00:47 ONCE, 1 [place] as 80 mg in 00 :00 dose, On Medical NaCl 0.9% Sat Branch (NS) 20 mL 05/09/22 at syringe 1945, Administer over 2 Minutes, 20 mL No known 2022-0 No Univers medications 6-11 ity of 17:24: [address] No known 2021-0 No Univers medications -11 ity of 17:24: [address] No known 2021-0 No No known Unive rs medications 6-11 medication it y of 17:24: s [address] No known 2021-0 No Univers medications 6-11 ity of 17:24: [address] calcium 0 Yes 3335mg Take 3,[address] acetate,mica 6-16 mg by [facility] sphat bind, 15:03: mouth 3 Med ical (PHOSLO) 13 (three) Center 667 mg times capsule daily with meals 4 tabs with snacks . calcium 0 Yes 3335mg Take 3,[address] acetate,mica 6-16 mg by [facility] sphat bind, 15:03: mouth 3 Med ical (PHOSLO) 13 (three) Center 667 mg times capsule daily with meals 4 tabs with snacks . pantoprazol 0 Yes 40mg QD Take [address] [facility] 6-16 by mouth [facility] (PROTONIX) 15:03: daily. Medic al 40 MG 13 Center tablet cloNIDine 0 Yes .3mg Q.[id number] Take 0.[address] HCL 6-16 [id number] mg by [facility] (CATAPRES) 15:03: 3D mouth 3 Medi ai 0.3 MG 13 (three) Center tablet times daily. pantoprazol 0 Yes 40mg QD Take [address] e 6-16 by mouth [facility] (PROTONIX) 15:03: daily. Medic al 40 MG 13 Center tablet cloNIDine 2020-0 Yes .3mg Q.[id number] Take 0.[address] HCL 6-16 [id number] mg by [facility] (CATAPRES) 15:03: 3D mouth 3 Medi ia 0.3 MG 13 (three) Center tablet times daily. insulin [address] [facility] regular 6-16 subcutaneo [facility] (HumuLIN 15:00: usly Use Medic al R,NovoLIN 04 as Center R) 100 directed . unit/mL injection apixaban 0 Yes 5mg Q.5D Take [address] (ELIQUIS) 5 6-16 by mouth 2 Jennifer kes mg Tab 15:00: (two) Medical tablet 04 times Center daily. insulin [address] [facility] regular 6-16 subcutaneo [facility] (HumuLIN 15:00: usly Use Medic al R,NovoLIN 04 as Center R) 100 directed . unit/mL injection apixaban 0 Yes 5mg Q.5D Take [address] (ELIQUIS) 5 6-16 by mouth 2 Jennifer kes mg Tab 15:00: (two) Medical tablet 04 times Center daily. Pen [place] Pen [place] 2018-11 No QD Pen 32G X 6 MM 32G X 6 MM 2-24 [place] 00:00: 32G X 6 MM 00 cloniDINE 2018-11 2019- No .2mg Take 0.2 Uni vers 0.2 mg 0-22 10-22 mg by ity of tablet 11:14: 00:00 mouth 2 [place] 46 :00 (two) Medical times Branch daily. GLIPIZIDE 2018-11- No Take by [facility] ers ORAL 0-22 10-22 mouth ity of 11:14: 00:00 daily. [place] 46 :00 Medical Branch metoprolol 2018-11- No 50mg Take 50 mg Univers succinate 0-22 10-22 by mouth 2 ity of XL 50 mg 24 11:14: 00:00 (two) [place] hr tablet 46 :00 times Medical daily. Branch cinacalcet 2018-11- No 30mg Take 30 mg Univers (SENSIPAR) 0-22 10-22 by mouth ity of 30 mg 11:14: 00:00 daily. [place] tablet 46 :00 Medical Branch glyBURIDE 5 2018-11- No 5mg Take 5 mg Univers mg tablet 0-22 10-22 by mouth ity o f 11:14: 00:00 daily with [place] 46 :00 breakfast. Medical Branch hydralAZINE 2018-11- No 50mg Take 50 mg Univers 50 mg 0-22 10-22 by mouth 3 ity of tablet 11:14: 00:00 (three) [place] 46 :00 times Medical daily. Branch LACTOSE-RED 2018-11- No 237mL Take 237 Univers UCED FOOD 0-22 10-22 mL by ity of (ENSURE 11:14: 00:00 mouth 3 [place] COMPACT 46 :00 (three) Medical ORAL) times [place] daily with meals. cloniDINE 2018-11- No .2mg Take 0.2 Uni vers 0.2 mg 0-22 10-22 mg by ity of tablet 11:14: 00:00 mouth 2 [place] 46 :00 (two) Medical times Branch daily. GLIPIZIDE 2018-11- No Take by Univ ers ORAL 0-22 10-22 mouth ity of 11:14: 00:00 daily. [place] 46 :00 Medical Branch metoprolol 2018-11- No 50mg Take 50 mg Univers succinate 0-22 10-22 by mouth 2 ity of XL 50 mg 24 11:14: 00:00 (two) [place] hr tablet 46 :00 times Medical daily. Branch cinacalcet 2018-11- No 30mg Take 30 mg Univers (SENSIPAR) 0-22 10-22 by mouth ity of 30 mg 11:14: 00:00 daily. [place] tablet 46 :00 Medical Branch glyBURIDE 5 2018-11- No 5mg Take 5 mg Univers mg tablet 0- 10-22 by mouth ity o f 11:14: 00:00 daily with [place] 46 :00 breakfast. Medical Branch hydralAZINE 2018-11- No 50mg Take 50 mg Univers 50 mg 0-22 10-22 by mouth 3 ity of tablet 11:14: 00:00 (three) [place] 46 :00 times Medical daily. Branch LACTOSE-RED 2018-11- No 237mL Take 237 Univers UCED FOOD 0-22 10-22 mL by ity of (ENSURE 11:14: 00:00 mouth 3 [place] COMPACT 46 :00 (three) Medical ORAL) times [place] daily with meals. No known 2018-11 No Univers medications 0-21 ity of 12:59: [place] 21 Medical Branch cinacalcet Yes 30mg Take 30 mg U nivers (SENSIPAR) 4-25 by mouth ity o f 30 mg 15:37: daily. [place] tablet 10 Medical Branch glyBURIDE 5 Yes 5mg Take 5 mg U nivers mg tablet 4-25 by mouth ity of 15:37: daily with [place] 10 breakfast. Medical Branch hydralAZINE Yes 50mg Take [...] by ity of tablet 15:37: mouth 2 [place] 10 (two) Medical times Branch daily. GLIPIZIDE 2017-0 Yes Take by Unive rs ORAL 4-25 mouth ity of 15:37: daily. [address] Branch metoprolol 2017-0 Yes 50mg Take 50 mg U nivers succinate 4-25 by mouth 2 ity of XL 50 mg 24 15:37: (two) [place] hr tablet 10 times Medical daily. Branch cinacalcet [address] Yes 30mg Take 30 mg U nivers (SENSIPAR) 4-25 by mouth ity o f 30 mg 15:37: daily. [address] glyBURIDE 5 [address] Yes 5mg Take 5 mg U nivers mg tablet 4-25 by mouth ity of 15:37: daily with [place] [address] breakfast. [facility] Branch hydralAZINE 0 Yes 50mg Take 50 mg Univers 50 mg 4-25 by mouth 3 ity of tablet 15:37: (three) [place] 10 times Medical daily. Branch LACTOSE-RED 0 Yes 237mL Take 237 U nivers UCED FOOD 4-25 mL by ity of (ENSURE 15:37: mouth 3 [place] COMPACT 10 (three) Medical ORAL) times Branch daily with meals. cloniDINE 2017-0 Yes .2mg Take 0.2 Univ ers 0.2 mg 4-25 mg by ity of tablet 15:37: mouth 2 [place] [address] (two) Medical times Branch daily. GLIPIZIDE 2017-0 Yes Take by Unive rs ORAL 4-25 mouth ity of 15:37: daily. [address] Branch metoprolol 2017-0 Yes 50mg Take 50 mg U nivers succinate 4-25 by mouth 2 ity of XL 50 mg 24 15:37: (two) [place] hr tablet 10 times Medical daily. Branch cinacalcet 2017-0 Yes 30mg Take 30 mg U nivers (SENSIPAR) 4-25 by mouth ity o f 30 mg 15:37: daily. [address] glyBURIDE 5 2017-0 Yes 5mg Take 5 mg U nivers mg tablet 4-25 by mouth ity of 15:37: daily with [place] [address] breakfast. Medical Branch hydralAZINE Yes 50mg Take 50 mg Univers 50 mg 4-25 by mouth 3 ity of tablet 15:37: (three) [place] 10 times Medical daily. Branch LACTOSE-RED Yes 237mL Take 237 U nivers UCED FOOD 4-25 mL by ity of (ENSURE 15:37: mouth 3 [place] [facility] 10 (three) Medical ORAL) times Branch daily with meals. cloniDINE Yes .2mg Take 0.2 Univ ers 0.2 mg 4-25 mg by ity of tablet 15:37: mouth 2 [place] 10 (two) Medical times Branch daily. GLIPIZIDE Yes Take by Unive rs ORAL 4-25 mouth ity of 15:37: daily. [address] Branch metoprolol Yes 50mg Take 50 mg U nivers succinate 4-25 by mouth 2 ity of XL 50 mg 24 15:37: (two) [place] hr tablet 10 times Medical daily. Branch Tresiba Tresiba Yes Donavan inject 18 Co mmon FlexTouch FlexTouch [place] units [facility] cloNIDine cloNIDine No 1{table QD cloNIDine [...] 10 MG No known No Univers medications [facility] Vital Signs Vital Name Observation Time Observation Value Comments Source height 2022-08-05 75 [in_i] [facility] - 13:30:00 [facility] weight 2022-08-05 230 [lb_av] [facility] - 13:30:00 [facility] temperature 2022-08-05 97.6 [degF] [facility] - 13:30:00 [facility] bmi 2022-08-05 28.74 kg/m2 [facility] - 13:30:00 [facility] oximetry 2022-08-05 100 % [facility] - 13:30:00 [facility] respiratory rate 2022-08-05 18 /min [facility] - 13:30:00 [facility] blood pressure 2022-08-05 131 mm[Hg] [facility] - systolic 13:30:00 [facility] blood pressure 2022-08-05 74 mm[Hg] [facility] - diastolic 13:30:00 [facility] Systolic blood 2023-05-26 128 mm[Hg] University of pressure 15:58:00 [facility] Diastolic blood 2023-05-26 58 mm[Hg] University o f pressure 15:58:00 [facility] Heart rate 2023-05-26 60 /min University 15:58:00 [facility] Body temperature 2023-05-26 36.5 Alysia University 15:57:00 [facility] Respiratory rate 2023-05-26 20 /min University 15:57:00 [facility] Body weight 2023-05-26 104.5 kg University of 15:57:00 [facility] BMI 2023-05-26 28.80 kg/m2 University 15:57:00 [facility] blood pressure 2022-06-29 132 mm[Hg] Common [facility] - systolic 15:10:00 [facility] blood pressure 2022-06-29 79 mm[Hg] Common [facility] - diastolic 15:10:00 [facility] height 2022-06-29 75 [in_i] [facility] - 15:10:00 [facility] weight 2022-06-29 243.7 [lb_av] [facility] - 15:10:00 [facility] temperature 2022-06-29 98.4 [degF] [facility] - 15:10:00 [facility] bmi 2022-06-29 30.46 kg/m2 [facility] - 15:10:00 [facility] oximetry 2022-06-29 98 % [facility] - 15:10:00 [facility] respiratory rate 2022-06-29 18 /min [facility] - 15:10:00 [facility] Systolic blood 2022-05-14 144 mm[Hg] University of pressure 13:00:00 [facility] Diastolic blood 2022-05-14 104 mm[Hg] [place] o f pressure 13:00:00 [facility] Heart rate 2022-05-14 82 /min [facility] 13:00:00 [facility] Body temperature 2022-05-14 36.33 A[facility]ia University 13:00:00 [facility] Respiratory rate 2022-05-14 37 /min [facility] 13:00:00 [facility] Oxygen saturation 2022-05-14 99 /min [facility] Arterial blood 13:00:00 [facility] by Pulse oximetry Branch Body weight 2022-05-14 107.5 kg maybe [facility] 01:06:00 [facility] patient's Branch bedscale BMI 2022-05-14 29.62 kg/m2 [facility] 01:06:00 [place] [facility] Body height 2022-05-10 190.5 cm University of 04:06:00 [facility] Branch Systolic blood 2022-05-13 162 mm[Hg] University of pressure 17:03:40 [place] [facility] Diastolic blood 2022-05-13 94 mm[Hg] University o f pressure 17:03:40 [facility] Branch Respiratory rate 2022-05-13 18 /min University of 17:03:40 [facility] Oxygen saturation 2022-05-13 100 /min University of in Arterial blood 17:03:40 [place] [facility] ai by Pulse oximetry Branch Body temperature 2022-05-13 36.89 Alysia University of 17:00:00 [facility] Heart rate 2022-05-13 78 /min University of 09:00:00 [facility] Body weight 2022-05-11 113.4 kg University of 23:45:00 [facility] BMI 2022-05-11 29.62 kg/m2 University of 23:45:00 [facility] Body height 2022-05-10 190.5 cm University of 04:06:00 [facility] Body temperature 2022-05-12 36.94 Alysia University of 13:00:00 [facility] Systolic blood 2022-05-12 145 mm[Hg] University of pressure 09:00:00 [facility] Branch Diastolic blood 2022-05-12 73 mm[Hg] University o f pressure 09:00:00 [facility] Heart rate 2022-05-12 84 /min University of 09:00:00 [facility] Respiratory rate 2022-05-12 21 /min University of 09:00:00 [facility] Oxygen saturation 2022-05-12 93 /min University of in Arterial blood 09:00:00 [facility] ai by Pulse oximetry Branch Body weight 2022-05-11 113.4 kg University of 23:45:00 [facility] BMI 2022-05-11 31.25 kg/m2 University of 23:45:00 [facility] Body height 2022-05-10 190.5 cm University of 04:06:00 [facility] Respiratory rate 2017-11-09 18 /min University of 15:56:00 [facility] Body height 2017-11-09 190.5 cm University of 15:56:00 [facility] Body weight 2017-11-09 115.214 kg University of 15:56:00 [facility] BMI 2017-11-09 31.75 kg/m2 University 15:56:00 [facility] Initial DRG 2020-12-26 1.7989 Weight: [...] 16:17:16 Temperature 2020-12-26 36.5\\S\\97.7 16:17:16 Weight 2020-12-26 699039\\S\\3837.807 16:17:16 Weight Measurement 2020-12-26 Built in Bedscale [...] 19:00:24 Temperature 2020-12-09 36.5\\S\\97.7 19:00:24 Weight 2020-12-09 122272\\S\\3837.807 19:00:24 Weight Measurement 2020-12-09 Built in Bedscale Method 19:00:24 Body Mass Index 2020-12-05 29.8 16:35:28 Height 2020-12-05 191.00\\S\\75.20 16:35:28 Pulse Rate 2020-12-05 76 /min 16:35:28 Pulse Strength 2020-12-05 Normal /min 16:35:28 Pulse Assessment 2020-12-05 Palpation /min Method 16:35:28 Respiratory Rate 2020-12-05 12 /min 16:35:28 Respiratory Depth 2020-12-05 Normal /min 16:35:28 Respiratory Effort 2020-12-05 Spontaneous /min 16:35:28 Respiratory 2020-12-05 Normal /min Pattern 16:35:28 Temperature 2020-12-05 36.5\\S\\97.7 16:35:28 Weight 2020-12-05 560500\\S\\3837.807 16:35:28 Weight Measurement 2020-12-05 Built in Bedscale Method 16:35:28 Initial DRG 2020-12-05 1.7989 Weight: 16:35:28 Working DRG 2020-12-05 1.7989 Weight: 16:35:28 Head exam ED 2020-12-05 atraumatic 16:35:28 Monitor Temp 2020-12-05 axillary Source 16:35:28 Respiratory exam 2020-12-05 normal breath 16:35:28 sounds /min 02 Sat by Pulse 2020-12-05 100 /min Oximetry 16:35:28 Head exam ED 2020-12-03 atraumatic 21:50:51 [...] 21:50:51 Temperature 2020-12-03 36.5\\S\\97.7 21:50:51 Weight 2020-12-03 253647\\S\\3837.807 21:50:51 Weight Measurement 2020-12-03 Built in Bedscale [...] 06:17:28 Temperature 2020-12-03 37.1\\S\\98.8 06:17:28 Weight 2020-12-03 697238\\S\\3837.807 06:17:28 Weight Measurement 2020-12-03 Built in Bedscale [...] 14:07:55 Temperature 2020-12-02 37.1\\S\\98.8 14:07:55 Weight 2020-12-02 872907.78\\S\\3841.7 14:07:55 5 Weight Measurement 2020-12-02 Estimated by [...] 08:38:02 Temperature 2020-12-02 37.0\\S\\98.6 08:38:02 Weight 2020-12-02 077692.78\\S\\3841.7 08:38:02 5 Weight Measurement 2020-12-02 Estimated by [...] 08:24:13 Temperature 2020-12-02 37.0\\S\\98.6 08:24:13 Weight 2020-12-02 053888.78\\S\\3841.7 08:24:13 5 Weight Measurement 2020-12-02 Estimated by Method 08:24:13 Patient WEIGHT 2020-12-02 108.87938 kg 06:00:00 Head exam ED 2020-12-01 atraumatic 19:27:51 Respiratory exam 2020-12-01 normal breath 19:27:51 sounds /min Body Mass Index 2020-12-01 29.8 19:27:51 Height 2020-12-01 191.00\\S\\75.20 19:27:51 Weight 2020-12-01 001412.78\\S\\3841.7 19:27:51 5 Weight Measurement 2020-12-01 Estimated by Method 19:27:51 Patient Head exam ED 2020-12-01 atraumatic 18:19:39 Respiratory exam 2020-12-01 normal breath 18:19:39 sounds /min Body Mass Index 2020-12-01 29.8 18:19:39 Height 2020-12-01 191.00\\S\\75.20 18:19:39 Weight 2020-12-01 456670.78\\S\\3841.7 18:19:39 5 Weight Measurement 2020-12-01 Estimated by Method 18:19:39 Patient WEIGHT 2020-12-01 108.53707 kg 12:52:00 HEIGHT 2020-12-01 191 cm 12:52:00 Body Mass Index 2020-12-01 27.1 12:37:54 Height 2020-12-01 172.72\\S\\68 12:37:54 Weight 2020-12-01 36792\\S\\2857.191 12:37:54 Body Mass Index 2020-12-01 27.1 12:11:56 Height 2020-12-01 172.72\\S\\68 12:11:56 Weight 2020-12-01 29100\\S\\2857.191 12:11:56 Body Mass Index 2020-12-01 27.1 12:09:23 Height 2020-12-01 172.72\\S\\68 12:09:23 Weight 2020-12-01 13277\\S\\2857.191 12:09:23 Body Mass Index 2020-12-01 27.1 11:29:40 Height 2020-12-01 172.72\\S\\68 11:29:40 Weight 2020-12-01 53645\\S\\2857.191 11:29:40 Body Mass Index 2020-12-01 27.1 10:59:59 Height 2020-12-01 172.72\\S\\68 10:59:59 Weight 2020-12-01 27637\\S\\2857.191 10:59:59 WEIGHT 2020-12-01 81 kg 10:59:00 HEIGHT 2020-12-01 172.72 cm 10:59:00 Procedures Procedure Date / Time Performing Source Performed Clinician AUTHORIZATION FOR RELEASE OF PHI 2022-07-24 [facility] of 05:01:00 Unassigned, No [place] [facility] Name Branch POCT GLUCOSE (AUTOMATED) 2022-05-14 Tung, Purnima Univers ity of 13:03:00 [facility] POCT GLUCOSE (AUTOMATED) 2022-05-14 Sai Purnima Univers ity of 13:03:00 [facility] THYROID STIMULATING HORMONE 2022-05-14 Martha'Marilu Wagner [facility] ersity of 10:13:00 [facility] BASIC METABOLIC PANEL (NA, K, CL, 2022-05-14 [facility] [place] of CO2, GLUCOSE, BUN, CREATININE, CA) 10:13:00 [facility] THYROID STIMULATING HORMONE 2022-05-14 Martha'Bernard [facility] ersity of 10:13:00 [facility] BASIC METABOLIC PANEL (NA, K, CL, 2022-05-14 [facility], [facility] CO2, GLUCOSE, BUN, CREATININE, CA) 10:13:00 [facility] CBC WITHOUT DIFF 2022-05-14 Randykaiser hayward, [facility] of 10:12:00 [facility] GLYCOSYLATED HEMOGLOBIN (A1C) 2022-05-14 Marilu Marshall Un iversity of 10:12:00 [facility] CBC WITHOUT DIFF 2022-05-[facility] 10:12[facility]00 [facility] GLYCOSYLATED HEMOGLOBIN (A1C) 2022-05-14 Marilu Marshall Un iversity of 10:12:00 [facility] HEPATITIS B SURFACE ANTIBODY 2022-05-13 [facility] versity of 21:45:00 [facility] LOW-DENSITY LIPOPROTEIN, DIRECT 2022-05-13 Marilu Marshall [place] of 21:45:00 [facility] HEPATITIS B SURFACE ANTIBODY 2022-05-13 [facility] versity of 21:45:00 [facility] LOW-DENSITY LIPOPROTEIN, DIRECT 2022-05-13 Martha'Bernard [facility] of 21:45:00 [facility] POCT GLUCOSE (AUTOMATED) 2022-05-13 Purnima Gibbs Univers ity of 21:22:00 [facility] POCT GLUCOSE (AUTOMATED) 2022-05-13 Sai Purnima Univers ity of 21:22:00 [facility] CARDIAC CATHETERIZATION 2022-05-13 Radha Dineroi ty of 17:52:00 [facility] CARDIAC CATHETERIZATION 2022-05-13 [facility] 17:52:00 [facility] Branch CATH PROCEDURE LOG 2022-05-13 [facility] of 17:26:00 [facility] Branch CATH PROCEDURE LOG 2022-05-13 Bar, [facility]ly [facility] of 17:26:00 [facility] POCT GLUCOSE (AUTOMATED) 2022-05-13 Tung, Purnima Univers ity of 16:10:00 [place] [facility] POCT GLUCOSE (AUTOMATED) 2022-05-13 Tung, Purnima Univers ity of 16:10:00 [place] [facility] POCT GLUCOSE (AUTOMATED) 2022-05-13 Tung, Purnima Univers ity of 16:10:00 [place] [facility] POCT GLUCOSE (AUTOMATED) 2022-05-13 Tung, Purnima Univers ity of 12:59:00 [facility] Branch POCT GLUCOSE (AUTOMATED) 2022-05-13 Tung, Purnima Univers ity of 12:59:00 [facility] POCT GLUCOSE (AUTOMATED) 2022-05-13 Tung, Purnima Univers ity of 12:59:00 [facility] TROPONIN I 2022-05-13 Wilber [facility] of 09:09:00 [facility] BASIC METABOLIC PANEL (NA, K, CL, 2022-05-13 Burns, [facility] of CO2, GLUCOSE, BUN, CREATININE, CA) 09:09:00 [facility] CBC WITH DIFF 2022-05-13 Burns, [facility] of 09:09:00 [facility] TROPONIN I 2022-05-13 Wilber [facility] of 09:09:00 [facility] BASIC METABOLIC PANEL (NA, K, CL, 2022-05-13 Burns, [facility] of CO2, GLUCOSE, BUN, CREATININE, CA) 09:09:00 [facility] CBC WITH DIFF 2022-05-13 Burns [facility] of 09:09:00 [facility] TROPONIN I 2022-05-13 Wilber [facility] of 09:09:00 [facility] BASIC METABOLIC PANEL (NA, K, CL, 2022-05-13 Burns, [facility] of CO2, GLUCOSE, BUN, CREATININE, CA) 09:09:00 [facility] CBC WITH DIFF 2022-05-13 Burns, [facility] of 09:09:00 [facility] POCT GLUCOSE (AUTOMATED) 2022-05-13 Tung, Purnima Univers ity of 01:50:00 [place] [facility] POCT GLUCOSE (AUTOMATED) 2022-05-13 Purnima Gibbs Univers ity of 01:50:00 [place] [facility] POCT GLUCOSE (AUTOMATED) 2022-05-13 Purnima Gibbs Univers ity of 01:50:00 [facility] Branch CBC WITHOUT DIFF 2022-05-12 Wilber, [facility] of 23:13:00 [place] [facility] CBC WITHOUT DIFF 2022-05-12 Wilber, [facility] of 23:13:00 [place] [facility] CBC WITHOUT DIFF 2022-05-12 Wilber, [facility] University of 23:13:00 [facility] Branch POCT GLUCOSE (AUTOMATED) 2022-05-12 Purnima Gibbs Univers ity of 22:08:00 [place] [facility] POCT GLUCOSE (AUTOMATED) 2022-05-12 Purnima Gibbs Univers ity of 22:08:00 [facility] POCT GLUCOSE (AUTOMATED) 2022-05-12 Purnima Gibbs Univers ity of 22:08:00 [facility] WOUND CULTURE 2022-05-12 [facility] of 21:45:00 [facility] Branch WOUND CULTURE 2022-05-12 [facility] of 21:45:00 [facility] Branch WOUND CULTURE 2022-05-12 [facility] of 21:45:00 [facility] Branch CBC WITHOUT DIFF 2022-05-12 Wilber, [facility] of 18:42:00 [facility] CBC WITHOUT DIFF 2022-05-12 Wilber, [facility] of 18:42:00 [facility] Branch CBC WITHOUT DIFF 2022-05-12 Wilber, [facility] of 18:42:00 [facility] POCT GLUCOSE (AUTOMATED) 2022-05-12 Purnima Gibbs Univers ity of 16:50:00 [facility] Branch POCT GLUCOSE (AUTOMATED) 2022-05-12 Purnima Gibbs Univers ity of 16:50:00 [place] [facility] POCT GLUCOSE (AUTOMATED) 2022-05-12 Sai Purnima Univers ity of 16:50:00 [facility] ESOPHAGOGASTRODUODENOSCOPY 2022-05-12 MeramandatMu Unive rsity of 14:03:00 Radha [facility] ESOPHAGOGASTRODUODENOSCOPY 2022-05-12 Meramandat, Mu Unive rsity of 14:03:00 Radha [facility] POCT GLUCOSE (AUTOMATED) 2022-05-12 Moulin, Jonn Univers ity of 13:05:00 [facility] POCT GLUCOSE (AUTOMATED) 2022-05-12 Moulin, Jonn Univers ity of 13:05:00 [facility] POCT GLUCOSE (AUTOMATED) 2022-05-12 [place], Jonn Univers ity of 13:05:00 [facility] EGD (ENDO) 2022-05-12 [facility] of 12:54:31 [facility] EGD (ENDO) 2022-05-12 [facility] of 12:54:31 [facility] EGD (ENDO) 2022-05-12 [facility] of 12:54:31 [facility] POCT GLUCOSE (AUTOMATED) 2022-05-12 [place]lin, Jonn Univers ity of 12:24:00 [facility] POCT GLUCOSE (AUTOMATED) 2022-05-12 [place]oulin, Jonn Univers ity of 12:24:00 [facility] POCT GLUCOSE (AUTOMATED) 2022-05-12 [place]lin, Jonn Univers ity of 12:24:00 [facility] MAGNESIUM 2022-05-12 Jennifer [facility] of 11:01:00 [facility] TROPONIN I 2022-05-12 Sai [facility] of 11:01:00 [facility] BASIC METABOLIC PANEL (NA, K, CL, 2022-05-12 [facility], [facility] of CO2, GLUCOSE, BUN, CREATININE, CA) 11:01:00 [facility] CBC WITH DIFF 2022-05-12 fausto [facility] of 11:01:00 [facility] PROTHROMBIN TIME / INR 2022-05-12 [facility] 11:01[facility]00 [facility] MAGNESIUM 2022-05-12 fausto [facility] of 11:01:00 [facility] TROPONIN I 2022-05-12 Sai [facility] of 11:01:00 [facility] BASIC METABOLIC PANEL (NA, K, CL, 2022-05-12 [facility], [facility] of CO2, GLUCOSE, BUN, CREATININE, CA) 11:01:00 [facility] CBC WITH DIFF 2022-05-12 [facility] of 11:01:00 [facility] PROTHROMBIN TIME / INR 2022-05-12 [facility], [facility] Universit y of 11:01:00 [facility] MAGNESIUM 2022-05-12 Randymed, [facility] of 11:01:00 [facility]ONIN I 2022[facility]05-12 [facility] 11:01:00 [facility] BASIC METABOLIC PANEL (NA, K, CL, 2022-05-12 [facility], [facility] of CO2, GLUCOSE, BUN, CREATININE, CA) 11:01:00 [facility] CBC WITH DIFF 2022-05-12 [facility], [facility] of 11:01:00 [facility] PROTHROMBIN TIME / INR 2022-05-12 [facility] 11:01:00 [facility] TROPONIN I 2022-05-12 Sai, [facility] of 02:11:00 [facility] CBC WITH DIFF 2022-05-12 [facility] 02:11:00 [facility] TROPONIN I 2022-05-12 Sai, [facility] of 02:11:00 [facility] CBC WITH DIFF 2022-05-12 Brydges, [facility] 02:11:00 [facility] TROPONIN I 2022-05-12 [facility], [facility] of 02:11:00 [facility] CBC WITH DIFF 2022-05-12 Brydges, [facility] 02:11:00 [facility] POCT GLUCOSE (AUTOMATED) 2022-05-12 Moulin, Jonn Univers ity of 00:23:00 [facility] POCT GLUCOSE (AUTOMATED) 2022-05-12 Moulin, Jonn Univers ity of 00:23:00 [facility] POCT GLUCOSE (AUTOMATED) 2022-05-12 [place]oulin, Jonn Univers ity of 00:23:00 [facility] POCT GLUCOSE (AUTOMATED) 2022-05-11 Moulin, Jonn Univers ity of 20:41:00 [facility] POCT GLUCOSE (AUTOMATED) 2022-05-11 [place]lin, Jonn Univers ity of 20:41:00 [facility] POCT GLUCOSE (AUTOMATED) 2022-05-11 [place]lin, Jonn Univers ity of 20:41:00 [facility] TRANSFUSE PACKED RBC 2022-05-11 Sai [facility] of 17:55:00 [facility] TRANSFUSE PACKED RBC 2022-05-11 Purnima Gibbs [place] of 17:55:00 [facility] TRANSFUSE PACKED RBC 2022-05-11 Purnima Gibbs [place] of 17:55:00 [facility] PREPARE PACKED RBC 2022-05-11 Purnima Gibbs [place] of 17:45:52 [facility] PREPARE PACKED RBC 2022-05-11 Purnima Gibbs [place] of 17:45:52 [facility] PREPARE PACKED RBC 2022-05-11 Sai Purnima [place] of 17:45:52 [facility] POCT GLUCOSE (AUTOMATED) 2022-05-11 Moulin, Jonn Univers ity of 16:49:00 [facility] POCT GLUCOSE (AUTOMATED) 2022-05-11 [place]oulin, Jonn Univers ity of 16:49:00 [facility] POCT GLUCOSE (AUTOMATED) 2022-05-11 Moulin, Jonn Univers ity of 16:49:00 [facility] ABORH INVESTIGATION 2022-05-11 Purnima Gibbs o f 15:20:00 [facility] ABORH INVESTIGATION 2022-05-11 Purnima Gibbs [place] o f 15:20:00 [facility] ABORH INVESTIGATION 2022-05-11 Sai Purnima [place] o f 15:20:00 [facility] HB INDIRECT ANTIGLOBULIN TEST 2022-05-11 Purnima Gibbs Un iversity of 14:29:00 [facility] ABORH INVESTIGATION 2022-05-11 Purnima Gibbs [place] o f 14:29:00 [facility] HB INDIRECT ANTIGLOBULIN TEST 2022-05-11 Purnima Gibbs Un iversity of 14:29:00 [facility] ABORH INVESTIGATION 2022-05-11 Purnima Gibbs [place] o f 14:29:00 [facility] HB INDIRECT ANTIGLOBULIN TEST 2022-05-11 Purnima Gibbs Un iversity of 14:29:00 [facility] ABORH INVESTIGATION 2022-05-11 Purnima Gibbs [place] o f 14:29:00 [facility] CBC WITH DIFF 2022-05-11 [facility] of 14:28:00 [facility] [facility] PROTHROMBIN TIME / INR 2022-05-11 Purnima Gibbsit y of 14:28:00 [facility] ACTIVATED PARTIAL THRMPLAS LUTHER 2022-05-11 Purnima Gibbs U [facility] of 14:28:00 [facility] FIBRINOGEN 2022-05-11 Sai [place] of 14:28:00 [facility] CBC WITH DIFF 2022-05-11 Isabel, [place] of 14:28:00 [facility] PROTHROMBIN TIME / INR 2022-05-11 Purnima Gibbs [facility] y of 14:28:00 [facility] ACTIVATED PARTIAL THRMPLAS LTUHER 2022-05-11 Purnima Gibbs U [facility]iversity of 14:28:00 [facility] FIBRINOGEN 2022-05-11 Sai [facility] of 14:28:00 [facility] CBC WITH DIFF 2022-05-11 [place], [place] of 14:28:00 [facility] PROTHROMBIN TIME / INR 2022-05-11 Purnima Gibbs [facility] y of 14:28:00 [facility] ACTIVATED PARTIAL THRMPLAS LUTHER 2022-05-11 Purnima Gibbs U [facility]iversity of 14:28:00 [facility] FIBRINOGEN 2022-05-11 Sai [facility] of 14:28:00 [facility] TROPONIN I 2022-05-11 Sai [facility] of 14:27:00 [facility] HEPATITIS B SURFACE ANTIGEN 2022-05-11 [facility] ersity of 14:27:00 [facility] TROPONIN I 2022-05-11 [facility] of 14:27:00 [facility] HEPATITIS B SURFACE ANTIGEN 2022-05-11 [facility] ersity of 14:27:00 [facility] TROPONIN I 2022-05-11 [facility] of 14:27:00 [facility] HEPATITIS B SURFACE ANTIGEN 2022-05-11 [facility], [facility] ersity of 14:27:00 [facility] HB ECG ROUTINE & RHYTHM STRIP 2022-05-11 Tamiko Caldwell, Un iversity of 10:46:38 [facility] HB ECG ROUTINE & RHYTHM STRIP 2022-05-11 Tamiko Caldwell, Un iversity of 10:46:38 [facility] HB ECG ROUTINE & RHYTHM STRIP 2022-05-11 Tamiko Caldwell, Un iversity of 10:46:38 [facility] TROPONIN I 2022-05-11 Allison [facility] of 08:37:00 [facility] CBC WITHOUT DIFF 2022-05-11 [facility] 08:37[facility]00 [facility] TROPONIN I 2022-05-11 Allison, [facility] of 08:37:00 [facility] CBC WITHOUT DIFF 2022-05-11 Alilson, [facility] of 08:37:00 [facility] TROPONIN I 2022-05-11 Allison, [facility] of 08:37:00 [facility] CBC WITHOUT DIFF 2022-05-11 Allison, [facility] of 08:37:00 [facility] TROPONIN I 2022-05-11 Allison, [facility] of 03:53:00 [facility] ACTIVATED PARTIAL THRMPLAS LUTHER 2022-05-11 Allison, [facility] of 03:53:00 [facility] TROPONIN I 2022-05-11 Allison, [facility] of 03:53:00 [facility] ACTIVATED PARTIAL THRMPLAS LUTHER 2022-05-11 Allison, [facility] of 03:53:00 [facility] TROPONIN I 2022-05-11 Allison, [facility] of 03:53:00 [facility] ACTIVATED PARTIAL THRMPLAS LUTHER 2022-05-11 Allison, [facility] of 03:53:00 [facility] POCT GLUCOSE (AUTOMATED) 2022-05-11 [facility] it[facility] of 01:44:00 [facility] POCT GLUCOSE (AUTOMATED) 2022-05-11 [facility] of 01:44:00 [facility] POCT GLUCOSE (AUTOMATED) 2022-05-11 [facility] it[facility] of 01:44:00 [facility] CBC WITHOUT DIFF 2022-05-11 [facility] 01:25:00 [facility] CBC WITHOUT DIFF 2022-05-11 Allison, [facility] of 01:25:00 [facility] CBC WITHOUT DIFF 2022-05-11 Allison, Ricco [place] of 01:25:00 [facility] ACTIVATED PARTIAL THRMPLAS LUTHER 2022-05-10 Allison, [facility] of 22:11:00 [facility] HEPARIN ANTI-XA, UNFRACTIONATED 2022-05-10 Neil Cooper University of HEPARIN 22:11:00 [facility] ACTIVATED PARTIAL THRMPLAS LUTHER 2022-05-10 Allison [facility] of 22:11:00 [facility] HEPARIN ANTI-XA, UNFRACTIONATED 2022-05-10 Neil Cooper University of HEPARIN 22:11:00 [facility] ACTIVATED PARTIAL THRMPLAS LUTHER 2022-05-10 Allison, [facility] of 22:11:00 [facility] HEPARIN ANTI-XA, UNFRACTIONATED 2022-05-10 [facility] University of HEPARIN 22:11:00 [facility] POCT GLUCOSE (AUTOMATED) 2022-05-10 [facility], Univers ity of 21:20:00 [facility] POCT GLUCOSE (AUTOMATED) 2022-05-10 [facility], Univers ity of 21:20:00 [facility] POCT GLUCOSE (AUTOMATED) 2022-05-10 [facility] Univers ity of 21:20:00 [facility] TROPONIN I 2022-05-10 Ricco Cooper [place] of 20:54:00 [facility] TROPONIN I 2022-05-10 Allison [facility] of 20:54:00 [facility] TROPONIN I 2022-05-10 Allison [facility] of 20:54:00 [facility] PREPARE PACKED RBC 2022-05-10 Ricco Cooper [place] of 19:44:52 [facility] PREPARE PACKED RBC 2022-05-10 [facility] of 19:44:52 [facility] PREPARE PACKED RBC 2022-05-10 [facility] [place] of 19:44:52 [facility] TRANSTHORACIC ECHO (TTE) COMPLETE 2022-05-10 Madhuri Cooper [place] of W/ CONTRAST 19:35:00 [facility] TRANSTHORACIC ECHO (TTE) COMPLETE 2022-05-10 Allison [facility] of W/ CONTRAST 19:35:00 [facility] TRANSTHORACIC ECHO (TTE) COMPLETE 2022-05-10 Allison [facility] of W/ CONTRAST 19:35:00 [facility] CBC WITHOUT DIFF 2022-05-10 Ricco Cooper [place] of 17:46:00 [facility] CBC WITHOUT DIFF 2022-05-10 Ricco Cooper [place] of 17:46:00 [facility] CBC WITHOUT DIFF 2022-05-10 [facility] of 17:46:00 [facility] POCT GLUCOSE (AUTOMATED) 2022-05-10 [facility], [facility] ity of 17:38:00 [facility] POCT GLUCOSE (AUTOMATED) 2022-05-10 Tamiko Caldwell, [facility] ity of 17:38:00 [facility] POCT GLUCOSE (AUTOMATED) 2022-05-10 [facility], [facility] ity of 17:38:00 [facility] POCT GLUCOSE (AUTOMATED) 2022-05-10 [facility], [facility] ity of 13:18:00 [facility] POCT GLUCOSE (AUTOMATED) 2022-05-10 [facility] [place], [facility] ity of 13:18:00 [facility] POCT GLUCOSE (AUTOMATED) 2022-05-10 [facility] of 13:18:00 [facility] PREPARE PACKED RBC 2022-05-10 [facility] 12:52:36 [facility] PREPARE PACKED RBC 2022-05-10 [facility] 12:52:36 [facility] PREPARE PACKED RBC 2022-05-10 [facility] 12:52:36 [facility] HB ABO GROUPING 2022-05-10 [facility] 11:36:00 [facility] HB ABO GROUPING 2022-05-10 [facility] 11:36:00 [facility] HB ABO GROUPING 2022-05-10 [facility] 11:36:00 [facility] FERRITIN SERUM 2022-05-10 Masha Robison [place] of 10:14:00 [facility] TROPONIN I 2022-05-10 [facility] 10:14:00 [facility] BASIC METABOLIC PANEL (NA, K, CL, 2022-05-10 [facility] CO2, GLUCOSE, BUN, CREATININE, CA) 10:14:00 [facility] CBC WITHOUT DIFF 2022-05-10 [facility] 10:14:00 [facility] FERRITIN SERUM 2022-05-10 Masha Robison [facility] 10:14:00 [facility] TROPONIN I 2022-05-10 [facility] 10:14:00 [facility] BASIC METABOLIC PANEL (NA, K, CL, 2022-05-10 [facility] CO2, GLUCOSE, BUN, CREATININE, CA) 10:14:00 [facility] CBC WITHOUT DIFF 2022-05-10 [facility] 10:14:00 [facility] FERRITIN SERUM 2022-05-10 Masha Robison [facility] 10:14:00 [facility] TROPONIN I 2022-05-10 [facility] 10:14:00 [facility] BASIC METABOLIC PANEL (NA, K, CL, 2022-05-10 [facility] CO2, GLUCOSE, BUN, CREATININE, CA) 10:14:00 [facility] CBC WITHOUT DIFF 2022-05-10 [facility] 10:14:00 [facility] DISCLOSURE AND CONSENT, [facility] 2022-05-10 [facility] of AND SURGICAL PROCEDURES 05:01:00 Unassigned, No [facility] dical Name Branch DISCLOSURE AND CONSENT, [facility] 2022-05-10 [facility] AND SURGICAL PROCEDURES 05:01:00 Unassigned, No [facility] dical Name Branch POCT GLUCOSE (AUTOMATED) 2022-05-10 Zoraida Reed Univers ity of 03:49:00 [facility] POCT GLUCOSE (AUTOMATED) 2022-05-10 Zoraida Reed Univers ity of 03:49:00 [facility] POCT GLUCOSE (AUTOMATED) 2022-05-10 Zoraida Reed Univers ity of 03:49:00 [facility] TRANSFUSE PACKED RBC 2022-05-10 Zoraida Reed [facility] 01:50:00 [facility] TRANSFUSE PACKED RBC 2022-05-10 Zoraida Reed [facility] 01:50:00 [facility] TRANSFUSE PACKED RBC 2022-05-10 Zoraida Reed [facility] 01:50:00 [facility] PREPARE PACKED RBC 2022-05-10 [facility] of 01:43:06 Unassigned, No [facility] PREPARE PACKED RBC 2022-05-10 [facility] of 01:43:06 Unassigned, No [facility] PREPARE PACKED RBC 2022-05-10 [facility] of 01:43:06 Unassigned, No [facility] HB INDIRECT ANTIGLOBULIN TEST 2022-05-09 Zoraida Reed Un iversity of 23:43:00 [facility] ABORH INVESTIGATION 2022-05-09 Zoraida Reed [place] f 23:43:00 [facility] HB INDIRECT ANTIGLOBULIN TEST 2022-05-09 Zoraida Reed Un iversity of 23:43:00 [facility] ABORH INVESTIGATION 2022-05-09 Zoraida Reed [place] f 23:43:00 [facility] HB INDIRECT ANTIGLOBULIN TEST 2022-05-09 Zoraida Reed Un iversity of 23:43:00 [facility] ABORH INVESTIGATION 2022-05-09 Zoraida Reed [place] f 23:43:00 [facility] COVID-19 (ID NOW RAPID TESTING) 2022-05-09 Zoraida Reed [place] of 22:41:00 [facility] LAB ONLY COVID INTERPRETATION 2022-05-09 Zoraida Reed Un iversity of 22:41:00 [facility] COVID-19 (ID NOW RAPID TESTING) 2022-05-09 Zoraida Reed [place] of 22:41:00 [facility] LAB ONLY COVID INTERPRETATION 2022-05-09 Zoraida Reed Un iversity of 22:41:00 [facility] COVID-19 (ID NOW RAPID TESTING) 2022-05-09 Zoraida Reed [place] of 22:41:00 [facility] LAB ONLY COVID INTERPRETATION 2022-05-09 Zoraida Reed Un iversity of 22:41:00 [facility] TROPONIN I 2022-05-09 Zoraida Reed [place] of 22:40:00 [facility] COMP. METABOLIC PANEL (39055) 2022-05-09 Zoraida Reed Un iversity of 22:40:00 [facility] IRON PANEL 2022-05-09 Masha Robison [place] of 22:40:00 [facility] CBC WITH DIFF 2022-05-09 Zoraida Reed [facility] of 22:40:00 [facility] PROTHROMBIN TIME / INR 2022-05-09 Zoraida Reed Universit y of 22:40:00 [facility] ACTIVATED PARTIAL THRMPLAS LUTHER 2022-05-09 Zoraida Reed U niversity of 22:40:00 [facility] N-TERMINAL PRO-BNP 2022-05-09 Zoraida Reed [facility] of 22:40:00 [facility] TROPONIN I 2022-05-09 Zoraida Reed [facility] of 22:40:00 [facility] COMP. METABOLIC PANEL (08060) 2022-05-09 Zoraida Reed Un iversity of 22:40:00 [facility] IRON PANEL 2022-05-09 Masha Robison [place] of 22:40:00 [facility] CBC WITH DIFF 2022-05-09 Zoraida Reed of 22:40:00 [facility] PROTHROMBIN TIME / INR 2022-05-09 Zoraida Reed Universit y of 22:40:00 [facility] ACTIVATED PARTIAL THRMPLAS LUTHER 2022-05-09 Zoraida Reed U niversity of 22:40:00 [facility] N-TERMINAL PRO-BNP 2022-05-09 Zoraida Reed [place] of 22:40:00 [facility] TROPONIN I 2022-05-09 Zoraida Reed [place] of 22:40:00 [facility] COMP. METABOLIC PANEL ([id number]) 2022-05-09 Zoraida Reed Un iversity of 22:40:00 [facility] IRON PANEL 2022-05-09 Masha Robison [place] of 22:40:00 [facility] CBC WITH DIFF 2022-05-09 Zoraida Reed University of 22:40:00 [facility] PROTHROMBIN TIME / INR 2022-05-09 Zoraida Reed Universit y of 22:40:00 [facility] ACTIVATED PARTIAL THRMPLAS LUTHER 2022-05-09 Zoraida Reed U niversity of 22:40:00 [facility] N-TERMINAL PRO-BNP 2022-05-09 Zoraida Reed [place] of 22:40:00 [facility] XR CHEST 1 VW 2022-05-09 Zoraida Reed [place] of 22:35:00 [facility] XR CHEST 1 VW 2022-05-09 Zoraida Reed [place] of 22:35:00 [facility] XR CHEST 1 VW 2022-05-09 Zoraida Reed [place] of 22:35:00 [facility] HB ECG ROUTINE & RHYTHM STRIP 2022-05-09 Zoraida Reed Un iversity of 22:01:31 [facility] HB ECG ROUTINE & RHYTHM STRIP 2022-05-09 Zoraida Reed Un iversity of 22:01:31 [facility] HB ECG ROUTINE & RHYTHM STRIP 2022-05-09 Zoraida Reed Un iversity of 22:01:31 [facility] NOTICE OF PRIVACY PRACTICES 2022-05-09 Doctor [facility] ersity of 21:51:37 Unassigned, No [facility] [place] NOTICE OF PRIVACY PRACTICES 2022-05-09 Doctor [facility] ersity of 21:51:37 Unassigned, No [facility] Bl[place] NOTICE OF PRIVACY PRACTICES 2022-05-09 Doctor [facility] ersity of 21:51:37 Unassigned, No [facility] CONSENT/REFUSAL FOR DIAGNOSIS AND 2022-05-09 [facility] of TREATMENT 21:49:43 Unassigned, No [place] [facility] DISCLOSURE AND CONSENT, MEDICAL 2022-05-09 [facility] AND SURGICAL PROCEDURES 05:01:00 Unassigned, No [facility] dical Name Branch DISCLOSURE AND CONSENT, MEDICAL 2022-05-09 [facility] AND SURGICAL PROCEDURES 05:01:00 Unassigned, No [place] [facility] DISCLOSURE AND CONSENT, MEDICAL 2022-05-09 [facility] AND SURGICAL PROCEDURES 05:01:00 Unassigned, No [place] [facility] Encounters Start End Encounter Admission Attending Care Care Encounter Source Date/Time Date/Time Type Type Clinicians Facility Department ID 2023-02-08 [facility] [id number] Common 10:57:01 [facility] [address] [facility] 2022-11-11 Outpatient Germán [facility] [id number] Common 08:36:00 [facility] [address] [facility] 2022-11-06 Outpatient Dunlap, STLMLC STLMLC [id number] Common 10:21:01 Donavan [facility] 2022-11-02 Outpatient Dunlap, STLMLC STLMLC [id number] Common 08:55:00 Donavan [facility] 2022-06-26 Outpatient Dunlap, STLMLC STLMLC [id number] Common 16:12:00 Donavan [facility] 2021-12-24 Outpatient Dunlap, STLMLC STLMLC [id number] Common 13:20:29 Donavan [facility] 2021-12-24 Outpatient Dunlap, STLMLC STLMLC [id number] Common 12:46:29 Donavan [address] [facility] 2021-12-24 Outpatient Dunlap, STLMLC STLMLC [id number] Common 12:45:38 Donavan [address] [facility] 2021-12-24 Outpatient Dunlap, STLMLC STLMLC [id number] Common 12:43:40 Donavan [id number] [facility] 2021-12-24 Outpatient Dunlap, STLMLC STLMLC [id number] Common 11:30:25 Donavan [address] [facility] 2021-12-24 Outpatient Dunlap, STLMLC STLMLC [id number] Common 11:29:16 Donavan 16020 [facility] 2021-12-24 Outpatient Dunlap, STLMLC STLMLC [id number] Common 11:28:09 Donavan [address] [facility] 2021-12-24 Outpatient Dunlap, STLMLC STLMLC [id number] Common 11:18:22 Donavan 28142 [facility] 2021-12-24 Outpatient Dunlap, STLMLC STLMLC [id number] Common 11:17:16 Donavan 12563 [facility] 2020-12-01 Inpatient [facility] [id number] [facility] 11:02:00 84 2020-12-01 Inpatient Urgent [place], [facility] Medical [id number] [facility] 00:00:00 Jose Grove 84 2023-06-23 2023-06-23 Telephone AnjalisloanUli [facility] [id number] [facility] 00:00:00 00:00:00 Sarah williamson MULTISPEC [id number] ity of [place] [id number] [facility] [id number] [facility] AND [place] [address] [facility] 2022-11-05 2022-11-05 (TEL) STLMLC STLMLC [id number] Co mmon 00:00:00 00:00:00 [facility] 2022-08-24 2022-08-24 (TEL) [facility] STLMLC [id number] Co mmon 00:00:00 00:00:00 [facility] 2022-08-20 2022-08-20 Documentat [facility] [id number] 00:[facility] 00:00:00 [facility] 2022-08-20 2022-08-20 Documentat [facility] [id number] 00:00[facility]00 00:00:00 [facility] 2022-08-05 2022-08-05 OFFICE [facility] STLC [id number] Co mmon 00:00:00 00:00:00 VISIT Esequiel [facility] PT - CHI LEVEL 4 [facility] 2022-07-24 2022-07-24 Orders Doctor HALL [id number] Univers 00:00:00 00:00:00 Only Unassigned, HOOD [id number] ity of [place] [facility] [id number] [facility] [phone] [facility] [address] Branch 2022-06-29 2022-06-29 OFFICE STLMLC STLMLC [id number] Co mmon 00:00:00 00:00:00 VISIT Esequiel WAN PT - CHI LEVEL 4 [facility] 2022-05-09 2022-05-14 Hospital Zoraida Reed [facility] [id number] Univers 16:55:00 10:02:00 Encounter Frances Gaookjarad HEALTH 350.1. 13.10 ity of Ricco Cooper CLEAR [id number] [facility] Mehran [place] [id number] [facility] [address] [facility] ([facility]) Ney Burns 2022-05-09 2022-05-14 Inpatient X ANA [facility] [id number] Univers 16:55:00 10:02:00 NEY ity of [facility] 2022-05-13 2022-05-13 Surgery Tanvir Vega [facility] [id number] Univers 11:30:00 13:30:00 N HEALTH [id number] it y of [place] [id number] [place] [id number] [facility] [address] ([facility]) 2022-05-12 2022-05-12 Surgery Nora [facility] [id number] Univers 08:50:00 09:30:00 [facility] HEALTH [id number] it y of Radha [id number] [place] [id number] [facility] [address] ([facility]) 2022-05-09 2022-05-09 Orders Doctor HALL [id number] Univers 00:00:00 00:00:00 Only Unassigned, HOOD [id number] ity of [place] [facility]PITAL [id number] Nabeel as [id number] [facility] [address] Branch 2022-05-04 2022-05-04 (TEL) STLC STLMLC [id number] Co mmon 00:00:00 00:00:00 [facility] 2021-03-31 2021-03-31 Outpatient STLMLC STLMLC [id number] Common 00:00:00 00:00:00 [facility] 2021-03-28 2021-03-28 Outpatient STLMLC STLMLC [id number] Common 00:00:00 00:00:00 [facility] 2021-02-26 2021-02-26 Outpatient STLMLC STLMLC [id number] Common 00:00:00 00:00:00 [facility] 2021-02-26 2021-02-26 Outpatient STLMLC STLMLC [id number] Common 00:00:00 00:00:00 [facility] 2020-05-23 2020-05-23 [facility] [id number] Common 11:13:00 11:13:[address] [facility] 2020-05-16 2020-05-16 Outpatient [facility] [id number] Common 11:17:00 11:17:[address] [facility] 2020-05-09 2020-05-09 Outpatient Chetan Bentont [id number] Common 15:11:00 15:11:[address] [facility] 2020-05-07 2020-05-07 [facility] [id number] 00:00:00 00:00:00 Brigid Emanuel MULTISPEC [id number] IALTY [id number] CENTER [id number] [facility] [address] [facility] 2020-05-07 2020-05-07 [facility] [id number] Univers 00:00:00 00:00:00 Brigid Emanuel MULTISPEC [id number] ity of IALTY [id number] [facility] CENTER [id number] [facility] AND HEYDI [address] [facility] 2020-04-16 2020-04-16 [facility] [id number] Common 14:20:00 14:20:00 t [facility] [address] [facility] 2020-03-14 2020-03-14 Outpatient [facility] [id number] Common 16:40:00 16:40:[address] [facility] 2020-03-07 2020-03-07 Outpatient [facility] [id number] Common 15:05:00 15:05:[address] [facility] 2020-03-06 2020-03-06 Outpatient [facility] [id number] Common 08:00:00 08:00:[address] [facility] 2019-11-21 2019-11-21 Outpatient [facility] [id number] Common 09:05:00 09:05:[address] [facility] 2019-11-13 2019-11-13 Outpatient [facility] [id number] Common 09:27:00 09:27:[address] [facility] 2019-11-09 2019-11-09 Outpatient [facility] [id number] Common 14:45:00 14:45:[address] [facility] 2019-08-11 2019-08-11 Telephone [facility] [id number] Univers 00:00:00 00:00:00 Rainey A MULTISPEC [id number] ity of IALTY [id number] [facility] [id number] [address] [facility] 2019-08-11 2019-08-11 Telephone Our [facility] 1.2.840.114 [id number] 00:00:00 00:00:00 Rainey A MULTISPEC 350.1.13.10 IALTY 4.2.7.2.686 [place] [id number] [place] [address] [facility] 2019-05-31 2019-05-31 Telephone [facility] 1.2.840.114 [id number] [facility] 00:00:00 00:00:00 Rainey A MULTISPEC 350.1.13.10 ity of IALTY 4.2.7.2.686 [facility] [id number] [address] [facility] 2019-05-31 2019-05-31 Telephone Eliel [facility] 1.2.840.114 [id number] 00:00:00 00:00:00 Brigid Emanuel MULTISPEC 350.1.13.10 IALTY 4.2.7.2.686 [place] [id number] [place] [address] [facility] 2017-11-09 2017-11-09 Office Transplant, Tdc TDC 1.2.840.11 [id number] [facility] 13:00:00 14:01:35 Visit [facility] 350.1.13.10 ity of Kerwin Dill 4.2.7.2.686 [place] [id number] [facility] [address] Results Test Description Test Time Test Comments Results Result Comments Source HEMOGLOBIN A1C 2022-08-05 00:00:00 Test Item Value Reference Range Interpretation Comme nts A1C (test code = 4548-4) 6.4 THYROID STIMULATING [id number] 14:34:13 Test Item Value Reference Range Interpretation Comments TSH (test code = See_Comment Biotin has been 8314083461) reported to cau se a negative bias, interpret resul ts relative to pat ient's use of biotin. [Automated mess age] The system [employer] generated this result transmitted ref erence range: 0.45 - 4 .70 mIU/L. The refe rence range was not u sed to interpret this result as normal/abnor mal. Lab Interpretation (test Normal code = 45218-4) [facility] [id number] 14:34:13 Test Item Value Reference Range Interpretation Comments TSH (test code = See_Comment Biotin has been [id number]) reported to cau se a negative bias, interpret resul ts relative to pat ient's use of biotin. [Automated mess age] The system [employer] generated this result transmitted ref erence range: 0.45 - 4 .70 mIU/L. The refe rence range was not u sed to interpret this result as normal/abnor mal. Lab Interpretation (test Normal code = 59519-6) [facility]IP[facility]ROTEIN, [id number] 14:22:53 Test Item Value Reference Range Interpretation Comments dLDL Chol (test code = 59454-2) 68 mg/dL <130 Lab Interpretation (test code = Normal 48255-3) [facility]OTE[facility], [id number] 14:22:53 Test Item Value Reference Range Interpretation Comments dLDL Chol (test code = 77687-3) 68 mg/dL <130 Lab Interpretation (test code = Normal 45723-3) [facility] HEMOGLOBIN (A1C)2022-05-14 14:04:11 Test Item Value Reference Range Interpretation Comments HGB A1C (test code = 7.3 % 4.0-5.7 H 4548-4) JINNY (test code = JINNY) Reference RangesNormal: <5.7%Prediabetes: 5.7 - 6.4%Diabetes: > 6.5% Lab Interpretation (test Abnormal code = 43158-7) [facility]GLOB[facility] (A1C)2022-05-14 14:04:11 Test Item Value Reference Range Interpretation Comments HGB A1C (test code = 7.3 % 4.0-5.7 H 4548-4) JINNY (test code = JINNY) Reference RangesNormal: <5.7%Prediabetes: 5.7 - 6.4%Diabetes: > 6.5% Lab Interpretation (test Abnormal code = 64808-2) [facility] GLUCOSE (AUTOMATED)2022-05-14 13:05:13 Test Item Value Reference Range Interpretation Comments POCT GLU (test code = 6245720077) 208 mg/dL 70-110 H Lab Interpretation (test code = Abnormal 49656-5) [facility] GLUCOSE (AUTOMATED)2022-05-14 13:05:13 Test Item Value Reference Range Interpretation Comments POCT GLU (test code = 7348927399) 208 mg/dL 70-110 H Lab Interpretation (test code = Abnormal 69647-7) [facility] (NA, K, CL, CO2, GLUCOSE, BUN, CREATININE, CA)2022-05-14 10:32:35 Test Item Value Reference Range Interpretation Comments NA (test code = 137 mmol/L 135-145 6550049099) K (test code = 4.2 mmol/L 3.5-5.0 8938445111) CL (test code = 100 mmol/L 98-108 3551048651) CO2 TOTAL (test code = 27 mmol/L 23-31 8752015841) AGAP (test code = 2-16 0775739673) BUN (test code = 33 mg/dL 7-23 H 7472381808) GLUCOSE (test code = 164 mg/dL 70-110 H 6324059150) CREATININE (test code = 8.53 mg/dL 0.60-1.25 H 9592433923) CALCIUM (test code = 8.7 mg/dL 8.6-10.6 1803481408) eGFR (test code = mL/min/1.73m2 7050774974) JINNY (test code = JINNY) Association of [...] tests). Lab Interpretation Abnormal (test code = 61610-5) [facility] METABOLIC PANEL (NA, K, CL, CO2, GLUCOSE, BUN, CREATININE, CA)2022-05-14 10:32:35 Test Item Value Reference Range Interpretation Comments NA (test code = 137 mmol/L 135-145 9919484198) K (test code = 4.2 mmol/L 3.5-5.0 9902502392) CL (test code = 100 mmol/L 98-108 3848154999) CO2 TOTAL (test code = 27 mmol/L 23-31 2581213323) AGAP (test code = 2-16 0850610813) BUN (test code = 33 mg/dL 7-23 H 6252527047) GLUCOSE (test code = 164 mg/dL 70-110 H 0192926580) CREATININE (test code = 8.53 mg/dL 0.60-1.25 H 7840293220) CALCIUM (test code = 8.7 mg/dL 8.6-10.6 5075651061) eGFR (test code = mL/min/1.73m2 9981552432) JINNY (test code = JINNY) Association of [...] tests). Lab Interpretation Abnormal (test code = 41125-3) [facility] WITHOUT [id number] 10:20:31 Test Item Value Reference Range Interpretation Comments WBC (test code = 6690-2) See_Comment [A utomated message] The system [employer] generated this result transmit corie reference range : 4.20 - 10.70 10*3/?L. The reference range was not used to interpret this result as normal/abnormal . RBC (test code = 789-8) See_Comment L [Au tomated message] The system [employer] generated this result transmit corie reference range [...] 777-3) See_Comment [Au tomated message] The system [employer] generated this result transmit corie reference range : 150 - 328 10*3/?L. The reference range was not used to interpret this result as normal/abnormal . MPV (test code = 8.9 fL 9.8-13.0 L 55919-6) RDW-CV (test code = 20.7 % 12.1-15.4 H 788-0) RDW-SD (test code = 59.7 fL 38.5-51.6 H 98356-9) NRBC x10^3 (test code = <0.01 See_Comment [Au tomated message] 8527168966) The system [employer] generated this result transmit corie reference range : 10*3/?L. The reference range was not used to interpret this result as normal/abnormal . NRBC/100 WBC (test code See_Comment [Au tomated message] = 3926210280) The system [employer] generated this result transmit corie reference range : 0.0 - 10.0 /100 WBC s. The reference r mera was not used to interpret this result as normal/abnormal . IPF % (test code = 6385849502) Lab Interpretation (test Abnormal code = 02843-0) [facility] WITHOUT [id number] 10:20:31 Test Item Value Reference Range Interpretation Comments WBC (test code = 6690-2) See_Comment [A utomated message] The system [employer] generated this result transmit corie reference range : 4.20 - 10.70 10*3/?L. The reference range was not used to interpret this result as normal/abnormal . RBC (test code = 789-8) See_Comment L [Au tomated message] The system [employer] generated this result transmit corie reference range [...] 777-3) See_Comment [Au tomated message] The system [employer] generated this result transmit corie reference range : 150 - 328 10*3/?L. The reference range was not used to interpret this result as normal/abnormal . MPV (test code = 8.9 fL 9.8-13.0 L 70671-2) RDW-CV (test code = 20.7 % 12.1-15.4 H 788-0) RDW-SD (test code = 59.7 fL 38.5-51.6 H 84991-4) NRBC x10^3 (test code = <0.01 See_Comment [Au tomated message] 3611312085) The system [employer] generated this result transmit corie reference range : 10*3/?L. The reference range was not used to interpret this result as normal/abnormal . NRBC/100 WBC (test code See_Comment [Au tomated message] = 3214890759) The system [employer] generated this result transmit corie reference range : 0.0 - 10.0 /100 WBC s. The reference r mear was not used to interpret this result as normal/abnormal . IPF % (test code = 1499840701) Lab Interpretation (test Abnormal code = 38833-6) [facility] B Surface Antibody (HBsAb)2022-05-14 10:04:26 Test Item Value Reference Range Interpretation Comments HBsAB (test code = Indeterminate 3814853217) HBsAb mIU/mL Semi-Quantitative (test code = 7176462247) JINNY (test code = Unable to determine if JINNY) antibody to Hepatitis B Surface Antigen is present at levels consistent with immunity. ?Patient's immune status should be assessed with other clinical information and/or retesting in 4-6 weeks as clinically indicated. ?If any questions, please contact Clinical Chemistry Director sales service professional at .Unable to determine if antibody to Hepatitis B Surface Antigen is present at levels consistent with immunity. ?Patient's immune status should be assessed with other clinical information and/or retesting in 4-6 weeks as clinically indicated. ?If any questions, please contact Clinical Chemistry Director sales service professional at .Unable to determine if antibody to Hepatitis B Surface Antigen is present at levels consistent with immunity. ?Patient's immune status should be assessed with other clinical information and/or retesting in 4-6 weeks as clinically indicated. ?If any questions, please contact Clinical Chemistry Director sales service professional at .Interpretati on: ?Hepatitis B Surface Antibody ? Negative - Patient is considered to be not immune to infection with HBV. ? ? Positive - Anti-HBs detected at greater than or equal to 12 mIU/mL. ?Patient is considered to be immune to infection with HBV. ? [facility] B Surface Antibody (HBsAb)2022-05-14 10:04:26 Test Item Value Reference Range Interpretation Comments HBsAB (test code = Indeterminate 0226767159) HBsAb mIU/mL Semi-Quantitative (test code = 1387386941) JINNY (test code = Unable to determine if JINNY) antibody to Hepatitis B Surface Antigen is present at levels consistent with immunity. ?Patient's immune status should be assessed with other clinical information and/or retesting in 4-6 weeks as clinically indicated. ?If any questions, please contact Clinical Chemistry Director sales service professional at .Unable to determine if antibody to Hepatitis B Surface Antigen is present at levels consistent with immunity. ?Patient's immune status should be assessed with other clinical information and/or retesting in 4-6 weeks as clinically indicated. ?If any questions, please contact Clinical Chemistry Director sales service professional at .Unable to determine if antibody to Hepatitis B Surface Antigen is present at levels consistent with immunity. ?Patient's immune status should be assessed with other clinical information and/or retesting in 4-6 weeks as clinically indicated. ?If any questions, please contact Clinical Chemistry Director sales service professional at .Interpretati on: ?Hepatitis B Surface Antibody ? Negative - Patient is considered to be not immune to infection with HBV. ? ? Positive - Anti-HBs detected at greater than or equal to 12 mIU/mL. ?Patient is considered to be immune to infection with HBV. ? [facility] GLUCOSE (AUTOMATED)2022-05-13 22:00:04 Test Item Value Reference Range Interpretation Comments POCT GLU (test code = 9221288378) 168 mg/dL 70-110 H Lab Interpretation (test code = Abnormal 85346-6) [facility] GLUCOSE (AUTOMATED)2022-05-13 22:00:04 Test Item Value Reference Range Interpretation Comments POCT GLU (test code = 0871826872) 168 mg/dL 70-110 H Lab Interpretation (test code = Abnormal 23358-7) [facility] GLUCOSE (AUTOMATED)2022-05-13 16:30:27 Test Item Value Reference Range Interpretation Comments POCT GLU (test code = 5985669925) 183 mg/dL 70-110 H Lab Interpretation (test code = Abnormal 44093-1) [facility] GLUCOSE (AUTOMATED)2022-05-13 16:30:27 Test Item Value Reference Range Interpretation Comments POCT GLU (test code = 8155450403) 183 mg/dL 70-110 H Lab Interpretation (test code = Abnormal 66623-1) [facility] GLUCOSE (AUTOMATED)2022-05-13 16:30:27 Test Item Value Reference Range Interpretation Comments POCT GLU (test code = 3384731450) 183 mg/dL 70-110 H Lab Interpretation (test code = Abnormal 45007-0) [facility] GLUCOSE (AUTOMATED)2022-05-13 13:20:20 Test Item Value Reference Range Interpretation Comments POCT GLU (test code = 0937632535) 210 mg/dL 70-110 H Lab Interpretation (test code = Abnormal 01809-6) [facility] GLUCOSE (AUTOMATED)2022-05-13 13:20:20 Test Item Value Reference Range Interpretation Comments POCT GLU (test code = 9825861476) 210 mg/dL 70-110 H Lab Interpretation (test code = Abnormal 78214-0) [facility] GLUCOSE (AUTOMATED)2022-05-13 13:20:20 Test Item Value Reference Range Interpretation Comments POCT GLU (test code = 0272750653) 210 mg/dL 70-110 H Lab Interpretation (test code = Abnormal 14686-2) [facility] [id number] 09:41:14 Test Item Value Reference Interpretation Comments Range TROPONIN I (test 4.430 ng/mL See_Comment H [Automated code = 4276161042) message] The system which generated this result [...] biotin. Lab Interpretation Abnormal (test code = 31580-2) [facility] [id number] 09:41:14 Test Item Value Reference Interpretation Comments Range TROPONIN I (test 4.430 ng/mL See_Comment H [Automated code = 9830938744) message] The system which generated this result [...] biotin. Lab Interpretation Abnormal (test code = 96982-9) [facility] [id number] 09:41:14 Test Item Value Reference Interpretation Comments Range TROPONIN I (test 4.430 ng/mL See_Comment H [Automated code = 3695275103) message] The system which generated this result [...] biotin. Lab Interpretation Abnormal (test code = 72282-6) [facility] METABOLIC PANEL (NA, K, CL, CO2, GLUCOSE, BUN, CREATININE, CA)2022-05-13 09:31:22 Test Item Value Reference Range Interpretation Comments NA (test code = 136 mmol/L 135-145 6567635410) K (test code = 5.0 mmol/L 3.5-5.0 0452550854) CL (test code = 100 mmol/L 98-108 6967944215) CO2 TOTAL (test code = 24 mmol/L 23-31 6735774990) AGAP (test code = 2-16 0740892321) BUN (test code = 59 mg/dL 7-23 H 9120074857) GLUCOSE (test code = 280 mg/dL 70-110 H 5472996132) CREATININE (test code = 11.29 mg/dL 0.60-1.25 H 8214344785) CALCIUM (test code = 8.0 mg/dL 8.6-10.6 L 2091534466) eGFR (test code = mL/min/1.73m2 0266150997) JINNY (test code = JINNY) Association of [...] tests). Lab Interpretation Abnormal (test code = 65911-8) [facility] METABOLIC PANEL (NA, K, CL, CO2, GLUCOSE, BUN, CREATININE, CA)2022-05-13 09:31:22 Test Item Value Reference Range Interpretation Comments NA (test code = 136 mmol/L 135-145 0477049640) K (test code = 5.0 mmol/L 3.5-5.0 0872277577) CL (test code = 100 mmol/L 98-108 5248407861) CO2 TOTAL (test code = 24 mmol/L 23-31 4658431100) AGAP (test code = 2-16 9558163154) BUN (test code = 59 mg/dL 7-23 H 9208148580) GLUCOSE (test code = 280 mg/dL 70-110 H 0608268912) CREATININE (test code = 11.29 mg/dL 0.60-1.25 H 9248525670) CALCIUM (test code = 8.0 mg/dL 8.6-10.6 L 9216728194) eGFR (test code = mL/min/1.73m2 5712523934) JINNY (test code = JINNY) Association of [...] tests). Lab Interpretation Abnormal (test code = 13962-8) [facility] METABOLIC PANEL (NA, K, CL, CO2, GLUCOSE, BUN, CREATININE, CA)2022-05-13 09:31:22 Test Item Value Reference Range Interpretation Comments NA (test code = 136 mmol/L 135-145 6505261500) K (test code = 5.0 mmol/L 3.5-5.0 3575878915) CL (test code = 100 mmol/L 98-108 4471869818) CO2 TOTAL (test code = 24 mmol/L 23-31 9911288993) AGAP (test code = 2-16 8952431825) BUN (test code = 59 mg/dL 7-23 H 0522226815) GLUCOSE (test code = 280 mg/dL 70-110 H 0044939693) CREATININE (test code = 11.29 mg/dL 0.60-1.25 H 5727178908) CALCIUM (test code = 8.0 mg/dL 8.6-10.6 L 0743834839) eGFR (test code = mL/min/1.73m2 7114896003) JINNY (test code = JINNY) Association of [...] tests). Lab Interpretation Abnormal (test code = 20065-3) [facility] WITH [id number] 09:15:31 Test Item Value Reference Range Interpretation [...] (test code = 61.7 fL 38.5-51.6 H 65492-5) RDW-CV (test code = 21.2 % 12.1-15.4 H 788-0) PLT (test code = See_Comment [Automated 777-3) message] The sy stem which generated this result transmitted reference range : 150 - 328 10*3/ ?L. The reference r mera was not used to interpret this result as normal/abnormal . MPV (test code = 9.7 fL 9.8-13.0 L 82092-0) NRBC/100 WBC (test See_Comment [Automat ed code = 6936399321) message] The system which generated this result transmitted reference range : 0.0 - 10.0 /100 WBCs. The refer ence range was not u sed to interpret th is result as normal/abnormal . NRBC x10^3 (test code <0.01 See_Comment [Auto mated = 0234854265) message] The s ystem which generated this result transmitted reference range : 10*3/?L. The reference range was not used to interpret this result as normal/abnormal . GRAN MAT (NEUT) % 72.7 % (test code = 770-8) IMM GRAN % (test code 0.40 % = 0519474680) LYMPH % (test code = 11.6 % 736-9) MONO % (test code = 10.2 % 5905-5) EOS % (test code = 4.7 % 713-8) BASO % (test code = 0.4 % 706-2) GRAN MAT x10^3(ANC) 6.56 10*3/uL 1.99-6.95 (test code = 7546414717) IMM GRAN x10^3 (test 0.04 10*3/uL 0.00-0.06 code = 2529921569) LYMPH x10^3 (test code 1.05 10*3/uL 1.09-3.23 L = 731-0) MONO x10^3 (test code 0.92 10*3/uL 0.36-1.02 = 742-7) EOS x10^3 (test code = 0.42 10*3/uL 0.06-0.53 711-2) BASO x10^3 (test code 0.04 10*3/uL 0.01-0.09 = 704-7) Lab Interpretation Abnormal (test code = 60811-6) [facility] WITH [id number] 09:15:31 Test Item Value Reference Range Interpretation [...] (test code = 61.7 fL 38.5-51.6 H 54844-9) RDW-CV (test code = 21.2 % 12.1-15.4 H 788-0) PLT (test code = See_Comment [Automated 777-3) message] The sy stem which generated this result transmitted reference range : 150 - 328 10*3/ ?L. The reference r mera was not used to interpret this result as normal/abnormal . MPV (test code = 9.7 fL 9.8-13.0 L 30487-7) NRBC/100 WBC (test See_Comment [Automat ed code = 3406018005) message] The system which generated this result transmitted reference range : 0.0 - 10.0 /100 WBCs. The refer ence range was not u sed to interpret th is result as normal/abnormal . NRBC x10^3 (test code <0.01 See_Comment [Auto mated = 2891457774) message] The s ystem which generated this result transmitted reference range : 10*3/?L. The reference range was not used to interpret this result as normal/abnormal . GRAN MAT (NEUT) % 72.7 % (test code = 770-8) IMM GRAN % (test code 0.40 % = 7398002573) LYMPH % (test code = 11.6 % 736-9) MONO % (test code = 10.2 % 5905-5) EOS % (test code = 4.7 % 713-8) BASO % (test code = 0.4 % 706-2) GRAN MAT x10^3(ANC) 6.56 10*3/uL 1.99-6.95 (test code = 9907660540) IMM GRAN x10^3 (test 0.04 10*3/uL 0.00-0.06 code = 2611467534) LYMPH x10^3 (test code 1.05 10*3/uL 1.09-3.23 L = 731-0) MONO x10^3 (test code 0.92 10*3/uL 0.36-1.02 = 742-7) EOS x10^3 (test code = 0.42 10*3/uL 0.06-0.53 711-2) BASO x10^3 (test code 0.04 10*3/uL 0.01-0.09 = 704-7) Lab Interpretation Abnormal (test code = 00987-2) [facility] WITH [id number] 09:15:31 Test Item Value Reference Range Interpretation [...] (test code = 61.7 fL 38.5-51.6 H 96843-8) RDW-CV (test code = 21.2 % 12.1-15.4 H 788-0) PLT (test code = See_Comment [Automated 777-3) message] The sy stem which generated this result transmitted reference range : 150 - 328 10*3/ ?L. The reference r mera was not used to interpret this result as normal/abnormal . MPV (test code = 9.7 fL 9.8-13.0 L 42042-5) NRBC/100 WBC (test See_Comment [Automat ed code = 4899145625) message] The system which generated this result transmitted reference range : 0.0 - 10.0 /100 WBCs. The refer ence range was not u sed to interpret th is result as normal/abnormal . NRBC x10^3 (test code <0.01 See_Comment [Auto mated = 7289297990) message] The s ystem which generated this result transmitted reference range : 10*3/?L. The reference range was not used to interpret this result as normal/abnormal . GRAN MAT (NEUT) % 72.7 % (test code = 770-8) IMM GRAN % (test code 0.40 % = 7507958284) LYMPH % (test code = 11.6 % 736-9) MONO % (test code = 10.2 % 5905-5) EOS % (test code = 4.7 % 713-8) BASO % (test code = 0.4 % 706-2) GRAN MAT x10^3(ANC) 6.56 10*3/uL 1.99-6.95 (test code = 6215225106) IMM GRAN x10^3 (test 0.04 10*3/uL 0.00-0.06 code = 0959935263) LYMPH x10^3 (test code 1.05 10*3/uL 1.09-3.23 L = 731-0) MONO x10^3 (test code 0.92 10*3/uL 0.36-1.02 = 742-7) EOS x10^3 (test code = 0.42 10*3/uL 0.06-0.53 711-2) BASO x10^3 (test code 0.04 10*3/uL 0.01-0.09 = 704-7) Lab Interpretation Abnormal (test code = 26825-7) [facility] GLUCOSE (AUTOMATED)2022-05-13 01:51:42 Test Item Value Reference Range Interpretation Comments POCT GLU (test code = 4321594488) 241 mg/dL 70-110 H Lab Interpretation (test code = Abnormal 52585-2) [facility] GLUCOSE (AUTOMATED)2022-05-13 01:51:42 Test Item Value Reference Range Interpretation Comments POCT GLU (test code = 1320709492) 241 mg/dL 70-110 H Lab Interpretation (test code = Abnormal 47271-9) [facility] GLUCOSE (AUTOMATED)2022-05-13 01:51:42 Test Item Value Reference Range Interpretation Comments POCT GLU (test code = 2715860679) 241 mg/dL 70-110 H Lab Interpretation (test code = Abnormal 87629-0) [facility] WITHOUT [id number] 23:28:05 Test Item Value Reference Range Interpretation Comments WBC (test code = 6690-2) See_Comment [A utomated message] The system [employer] generated this result transmit corie reference range : 4.20 - 10.70 10*3/?L. The reference range was not used to interpret this result as normal/abnormal . RBC (test code = 789-8) See_Comment L [Au tomated message] The system [employer] generated this result transmit corie reference range [...] 777-3) See_Comment [Au tomated message] The system [employer] generated this result transmit corie reference range : 150 - 328 10*3/?L. The reference range was not used to interpret this result as normal/abnormal . MPV (test code = 9.1 fL 9.8-13.0 L 67155-9) RDW-CV (test code = 21.2 % 12.1-15.4 H 788-0) RDW-SD (test code = 60.4 fL 38.5-51.6 H 14778-8) NRBC x10^3 (test code = <0.01 See_Comment [Au tomated message] 0354958840) The system [employer] generated this result transmit corie reference range : 10*3/?L. The reference range was not used to interpret this result as normal/abnormal . NRBC/100 WBC (test code See_Comment [Au tomated message] = 7219934280) The system [facility] generated this result transmit corie reference range : 0.0 - 10.0 /100 WBC s. The reference r mera was not used to interpret this result as normal/abnormal . IPF % (test code = 1997100139) Lab Interpretation (test Abnormal code = 64274-8) [facility] WITHOUT [id number] 23:28:05 Test Item Value Reference Range Interpretation Comments WBC (test code = 6690-2) See_Comment [A utomated message] The system [employer] generated this result transmit corie reference range : 4.20 - 10.70 10*3/?L. The reference range was not used to interpret this result as normal/abnormal . RBC (test code = 789-8) See_Comment L [Au tomated message] The system [facility] generated this result transmit corie reference [...] 777-3) See_Comment [Au tomated message] The system [facility] generated this result transmit corie reference range : 150 - 328 10*3/?L. The reference range was not used to interpret this result as normal/abnormal . MPV (test code = 9.1 fL 9.8-13.0 L 40825-0) RDW-CV (test code = 21.2 % 12.1-15.4 H 788-0) RDW-SD (test code = 60.4 fL 38.5-51.6 H 93154-2) NRBC x10^3 (test code = <0.01 See_Comment [Au tomated message] 4302438263) The system [facility] generated this result transmit corie reference range : 10*3/?L. The reference range was not used to interpret this result as normal/abnormal . NRBC/100 WBC (test code See_Comment [Au tomated message] = [id number]) The system [facility] generated this result transmit corie reference range : 0.0 - 10.0 /100 WBC s. The reference r mera was not used to interpret this result as normal/abnormal . IPF % (test code = 7207099010) Lab Interpretation (test Abnormal code = 10031-6) [facility] WITHOUT [id number] 23:28:05 Test Item Value Reference Range Interpretation Comments WBC (test code = 6690-2) See_Comment [A utomated message] The system [facility] generated this result transmit corie reference range : 4.20 - 10.70 10*3/?L. The reference range was not used to interpret this result as normal/abnormal . RBC (test code = 789-8) See_Comment L [Au tomated message] The system [facility] generated this result transmit corie reference [...] 777-3) See_Comment [Au tomated message] The system [employer] generated this result transmit corie reference range : 150 - 328 10*3/?L. The reference range was not used to interpret this result as normal/abnormal . MPV (test code = 9.1 fL 9.8-13.0 L 61102-6) RDW-CV (test code = 21.2 % 12.1-15.4 H 788-0) RDW-SD (test code = 60.4 fL 38.5-51.6 H 06788-1) NRBC x10^3 (test code = <0.01 See_Comment [Au tomated message] [id number]) The system [employer] generated this result transmit corie reference range : 10*3/?L. The reference range was not used to interpret this result as normal/abnormal . NRBC/100 WBC (test code See_Comment [Au tomated message] = 0720967403) The system [employer] generated this result transmit corie reference range : 0.0 - 10.0 /100 WBC s. The reference r mera was not used to interpret this result as normal/abnormal . IPF % (test code = 7792298486) Lab Interpretation (test Abnormal code = 94212-0) [facility] GLUCOSE (AUTOMATED)2022-05-12 22:44:44 Test Item Value Reference Range Interpretation Comments POCT GLU (test code = 8427881154) 213 mg/dL 70-110 H Lab Interpretation (test code = Abnormal 96559-1) [facility] GLUCOSE (AUTOMATED)2022-05-12 22:44:44 Test Item Value Reference Range Interpretation Comments POCT GLU (test code = 2329411869) 213 mg/dL 70-110 H Lab Interpretation (test code = Abnormal 46814-7) [facility] GLUCOSE (AUTOMATED)2022-05-12 22:44:44 Test Item Value Reference Range Interpretation Comments POCT GLU (test code = 9430119561) 213 mg/dL 70-110 H Lab Interpretation (test code = Abnormal 54883-3) [facility] WITHOUT [id number] 19:02:16 Test Item Value Reference Range Interpretation Comments WBC (test code = 6690-2) See_Comment [A utomated message] The system [employer] generated this result transmit corie reference range : 4.20 - 10.70 10*3/?L. The reference range was not used to interpret this result as normal/abnormal . RBC (test code = 789-8) See_Comment L [Au tomated message] The system [employer] generated this result transmit corie reference range [...] 777-3) See_Comment [Au tomated message] The system [employer] generated this result transmit corie reference range : 150 - 328 10*3/?L. The reference range was not used to interpret this result as normal/abnormal . MPV (test code = 9.8 fL 9.8-13.0 72574-0) RDW-CV (test code = 21.3 % 12.1-15.4 H 788-0) RDW-SD (test code = 60.9 fL 38.5-51.6 H 03533-9) NRBC x10^3 (test code = <0.01 See_Comment [Au tomated message] 4088050312) The system [employer] generated this result transmit corie reference range : 10*3/?L. The reference range was not used to interpret this result as normal/abnormal . NRBC/100 WBC (test code See_Comment [Au tomated message] = 5006988244) The system [facility] generated this result transmit corie reference range : 0.0 - 10.0 /100 WBC s. The reference r mera was not used to interpret this result as normal/abnormal . IPF % (test code = 8113344205) Lab Interpretation (test Abnormal code = 17417-2) [facility] WITHOUT [id number] 19:02:16 Test Item Value Reference Range Interpretation Comments WBC (test code = 6690-2) See_Comment [A utomated message] The system [employer] generated this result transmit corie reference range : 4.20 - 10.70 10*3/?L. The reference range was not used to interpret this result as normal/abnormal . RBC (test code = 789-8) See_Comment L [Au tomated message] The system [employer] generated this result transmit corie reference range [...] 777-3) See_Comment [Au tomated message] The system [employer] generated this result transmit corie reference range : 150 - 328 10*3/?L. The reference range was not used to interpret this result as normal/abnormal . MPV (test code = 9.8 fL 9.8-13.0 44098-5) RDW-CV (test code = 21.3 % 12.1-15.4 H 788-0) RDW-SD (test code = 60.9 fL 38.5-51.6 H 47852-0) NRBC x10^3 (test code = <0.01 See_Comment [Au tomated message] 3465661001) The system [employer] generated this result transmit corie reference range : 10*3/?L. The reference range was not used to interpret this result as normal/abnormal . NRBC/100 WBC (test code See_Comment [Au tomated message] = 6294969288) The [facility] generated this result transmit corie reference range : 0.0 - 10.0 /100 WBC s. The reference r mera was not used to interpret this result as normal/abnormal . IPF % (test code = 2596506494) Lab Interpretation (test Abnormal code = 52203-7) [facility] WITHOUT [id number] 19:02:16 Test Item Value Reference Range Interpretation Comments WBC (test code = 6690-2) See_Comment [A utomated message] The system [employer] generated this result transmit corie reference range : 4.20 - 10.70 10*3/?L. The reference range was not used to interpret this result as normal/abnormal . RBC (test code = 789-8) See_Comment L [Au tomated message] The system [employer] generated this result transmit corie reference range [...] 777-3) See_Comment [Au tomated message] The system [employer] generated this result transmit corie reference range : 150 - 328 10*3/?L. The reference range was not used to interpret this result as normal/abnormal . MPV (test code = 9.8 fL 9.8-13.0 71041-3) RDW-CV (test code = 21.3 % 12.1-15.4 H 788-0) RDW-SD (test code = 60.9 fL 38.5-51.6 H 06846-9) NRBC x10^3 (test code = <0.01 See_Comment [Au tomated message] 0577500895) The system [employer] generated this result transmit corie reference range : 10*3/?L. The reference range was not used to interpret this result as normal/abnormal . NRBC/100 WBC (test code See_Comment [Au tomated message] = 6875288307) The system [employer] generated this result transmit corie reference range : 0.0 - 10.0 /100 WBC s. The reference r mera was not used to interpret this result as normal/abnormal . IPF % (test code = 9762991850) Lab Interpretation (test Abnormal code = 68261-4) [facility] GLUCOSE (AUTOMATED)2022-05-12 17:41:19 Test Item Value Reference Range Interpretation Comments POCT GLU (test code = 8541119721) 175 mg/dL 70-110 H Lab Interpretation (test code = Abnormal 61907-8) [facility] GLUCOSE (AUTOMATED)2022-05-12 17:41:19 Test Item Value Reference Range Interpretation Comments POCT GLU (test code = 7701503917) 175 mg/dL 70-110 H Lab Interpretation (test code = Abnormal 93861-0) [facility] GLUCOSE (AUTOMATED)2022-05-12 17:41:19 Test Item Value Reference Range Interpretation Comments POCT GLU (test code = 3712762823) 175 mg/dL 70-110 H Lab Interpretation (test code = Abnormal 04066-4) [facility] GLUCOSE (AUTOMATED)2022-05-12 13:20:46 Test Item Value Reference Range Interpretation Comments POCT GLU (test code = 9137551903) 147 mg/dL 70-110 H Lab Interpretation (test code = Abnormal 91629-7) [facility] GLUCOSE (AUTOMATED)2022-05-12 13:20:46 Test Item Value Reference Range Interpretation Comments POCT GLU (test code = 7856628220) 147 mg/dL 70-110 H Lab Interpretation (test code = Abnormal 16366-6) [facility] GLUCOSE (AUTOMATED)2022-05-12 13:20:46 Test Item Value Reference Range Interpretation Comments POCT GLU (test code = 8619466714) 147 mg/dL 70-110 H Lab Interpretation (test code = Abnormal 43876-9) [facility] GLUCOSE (AUTOMATED)2022-05-12 13:07:06 Test Item Value Reference Range Interpretation Comments POCT GLU (test code = 8195587478) 146 mg/dL 70-110 H Lab Interpretation (test code = Abnormal 45644-5) [facility] GLUCOSE (AUTOMATED)2022-05-12 13:07:06 Test Item Value Reference Range Interpretation Comments POCT GLU (test code = 0738286804) 146 mg/dL 70-110 H Lab Interpretation (test code = Abnormal 12109-1) [facility] GLUCOSE (AUTOMATED)2022-05-12 13:07:06 Test Item Value Reference Range Interpretation Comments POCT GLU (test code = 7821789975) 146 mg/dL 70-110 H Lab Interpretation (test code = Abnormal 40763-7) [facility] [id number] 11:35:30 Test Item Value Reference Interpretation Comments Range TROPONIN I (test 7.370 ng/mL See_Comment H [Automated code = 8689341063) message] The system which generated this result [...] biotin. Lab Interpretation Abnormal (test code = 85091-2) [facility] [id number] 11:35:30 Test Item Value Reference Interpretation Comments Range TROPONIN I (test 7.370 ng/mL See_Comment H [Automated code = 1446345103) message] The system which generated this result [...] biotin. Lab Interpretation Abnormal (test code = 68750-8) [id number] Test Item Value Reference Interpretation Comments Range TROPONIN I (test 7.370 ng/mL See_Comment H [Automated code = 4688083062) message] The system which generated this result [...] biotin. Lab Interpretation Abnormal (test code = 90868-3) [facility] (NA, K, CL, CO2, GLUCOSE, BUN, CREATININE, CA)2022-05-12 11:24:10 Test Item Value Reference Range Interpretation Comments NA (test code = 136 mmol/L 135-145 4571741152) K (test code = 4.1 mmol/L 3.5-5.0 6827697488) CL (test code = 100 mmol/L 98-108 9272208008) CO2 TOTAL (test code = 25 mmol/L 23-31 0742455238) AGAP (test code = 2-16 0492542002) BUN (test code = 43 mg/dL 7-23 H 9030125890) GLUCOSE (test code = 142 mg/dL 70-110 H 0415310126) CREATININE (test code = 8.40 mg/dL 0.60-1.25 H 3862964321) CALCIUM (test code = 8.7 mg/dL 8.6-10.6 6128313543) eGFR (test code = mL/min/1.73m2 4413810587) JINNY (test code = JINNY) Association of [...] tests). Lab Interpretation Abnormal (test code = 76179-2) [facility] 11:24:10 Test Item Value Reference Range Interpretation Comments MAGNESIUM (test code = 5134735133) 2.0 mg/dL 1.7-2.4 Lab Interpretation (test code = Normal 00245-5) [facility] (NA, K, CL, CO2, GLUCOSE, BUN, CREATININE, CA)2022-05-12 11:24:10 Test Item Value Reference Range Interpretation Comments NA (test code = 136 mmol/L 135-145 7110283511) K (test code = 4.1 mmol/L 3.5-5.0 8243959183) CL (test code = 100 mmol/L 98-108 3771293009) CO2 TOTAL (test code = 25 mmol/L 23-31 2095775986) AGAP (test code = 2-16 3427879538) BUN (test code = 43 mg/dL 7-23 H 7105272153) GLUCOSE (test code = 142 mg/dL 70-110 H 1897981322) CREATININE (test code = 8.40 mg/dL 0.60-1.25 H 8119972941) CALCIUM (test code = 8.7 mg/dL 8.6-10.6 7350988481) eGFR (test code = mL/min/1.73m2 2250838047) JINNY (test code = JINNY) Association of [...] tests). Lab Interpretation Abnormal (test code = 09753-7) [facility]22-[facility]14 11:24:10 Test Item Value Reference Range Interpretation Comments MAGNESIUM (test code = 7938521560) 2.0 mg/dL 1.7-2.4 Lab Interpretation (test code = Normal 06611-7) [facility] (NA, K, CL, CO2, GLUCOSE, BUN, CREATININE, CA)2022-05-12 11:24:10 Test Item Value Reference Range Interpretation Comments NA (test code = 136 mmol/L 135-145 9858048712) K (test code = 4.1 mmol/L 3.5-5.0 3353412104) CL (test code = 100 mmol/L 98-108 8442794101) CO2 TOTAL (test code = 25 mmol/L 23-31 4520526346) AGAP (test code = 2-16 3024117816) BUN (test code = 43 mg/dL 7-23 H 6738471396) GLUCOSE (test code = 142 mg/dL 70-110 H 6863042270) CREATININE (test code = 8.40 mg/dL 0.60-1.25 H 7337011680) CALCIUM (test code = 8.7 mg/dL 8.6-10.6 0555580831) eGFR (test code = mL/min/1.73m2 0425891221) JINNY (test code = JINNY) Association of [...] tests). Lab Interpretation Abnormal (test code = 88746-1) [facility] 11:24:10 Test Item Value Reference Range Interpretation Comments MAGNESIUM (test code = 3504205719) 2.0 mg/dL 1.7-2.4 Lab Interpretation (test code = Normal 10972-5) [facility] (PTT) / [id number] 11:18:28 Test Item Value Reference Range Interpretation Comments PROTIME PATIENT (test See_Comment [Auto mated message] code = 5964-2) The system [employer] generated this result transmitted ref erence range: 10.1 - 1 2.6 Seconds. The re ference range was not u sed to interpret this result as normal/abnor mal. INR (test code = 6301-6) Nor mal INR <1.1; Warfarin Therap eutic range 2.0 to 3. 0 or 2.5 to 3.5, dep ending upon the indica tions. Lab Interpretation (test Normal code = 61435-0) [facility] (PTT[facility] / [id number] 11:18:28 Test Item Value Reference Range Interpretation Comments PROTIME PATIENT (test See_Comment [Auto mated message] code = 5964-2) The system [employer] generated this result transmitted ref erence range: 10.1 - 1 2.6 Seconds. The re ference range was not u sed to interpret this result as normal/abnor mal. INR (test code = 6301-6) Nor mal INR <1.1; Warfarin Therap eutic range 2.0 to 3. 0 or 2.5 to 3.5, dep ending upon the indica tions. Lab Interpretation (test Normal code = 58470-5) [facility]th[facility] (PTT) / [id number] 11:18:28 Test Item Value Reference Range Interpretation [...] tions. Lab Interpretation (test Normal code = 95940-5) [facility] WITH [id number] 11:07:49 Test Item Value Reference Range Interpretation [...] (test code = 59.9 fL 38.5-51.6 H 85589-7) RDW-CV (test code = 21.3 % 12.1-15.4 H 788-0) PLT (test code = See_Comment [Automated 777-3) message] The sy stem which generated this result transmitted reference range : 150 - 328 10*3/ ?L. The reference r mera was not used to interpret this result as normal/abnormal . MPV (test code = 9.5 fL 9.8-13.0 L 06460-2) NRBC/100 WBC (test See_Comment [Automat ed code = 9345531953) message] The system which generated this result transmitted reference range : 0.0 - 10.0 /100 WBCs. The refer ence range was not u sed to interpret th is result as normal/abnormal . NRBC x10^3 (test code <0.01 See_Comment [Auto mated = 8954366426) message] The s ystem which generated this result transmitted reference range : 10*3/?L. The reference range was not used to interpret this result as normal/abnormal . GRAN MAT (NEUT) % 77.1 % (test code = 770-8) IMM GRAN % (test code 0.30 % = 4273430736) LYMPH % (test code = 8.4 % 736-9) MONO % (test code = 9.7 % 5905-5) EOS % (test code = 3.9 % 713-8) BASO % (test code = 0.6 % 706-2) GRAN MAT x10^3(ANC) 7.91 10*3/uL 1.99-6.95 H (test code = 5764713682) IMM GRAN x10^3 (test 0.03 10*3/uL 0.00-0.06 code = 6391848487) LYMPH x10^3 (test code 0.86 10*3/uL 1.09-3.23 L = 731-0) MONO x10^3 (test code 0.99 10*3/uL 0.36-1.02 = 742-7) EOS x10^3 (test code = 0.40 10*3/uL 0.06-0.53 711-2) BASO x10^3 (test code 0.06 10*3/uL 0.01-0.09 = 704-7) Lab Interpretation Abnormal (test code = 97260-8) [facility] WITH [id number] 11:07:49 Test Item Value Reference Range Interpretation [...] (test code = 59.9 fL 38.5-51.6 H 36137-2) RDW-CV (test code = 21.3 % 12.1-15.4 H 788-0) PLT (test code = See_Comment [Automated 777-3) message] The sy stem which generated this result transmitted reference range : 150 - 328 10*3/ ?L. The reference r mera was not used to interpret this result as normal/abnormal . MPV (test code = 9.5 fL 9.8-13.0 L 65217-3) NRBC/100 WBC (test See_Comment [Automat ed code = 6974873331) message] The system which generated this result transmitted reference range : 0.0 - 10.0 /100 WBCs. The refer ence range was not u sed to interpret th is result as normal/abnormal . NRBC x10^3 (test code <0.01 See_Comment [Auto mated = 3883681086) message] The s ystem which generated this result transmitted reference range : 10*3/?L. The reference range was not used to interpret this result as normal/abnormal . GRAN MAT (NEUT) % 77.1 % (test code = 770-8) IMM GRAN % (test code 0.30 % = 2174447071) LYMPH % (test code = 8.4 % 736-9) MONO % (test code = 9.7 % 5905-5) EOS % (test code = 3.9 % 713-8) BASO % (test code = 0.6 % 706-2) GRAN MAT x10^3(ANC) 7.91 10*3/uL 1.99-6.95 H (test code = 4957942684) IMM GRAN x10^3 (test 0.03 10*3/uL 0.00-0.06 code = 5421308083) LYMPH x10^3 (test code 0.86 10*3/uL 1.09-3.23 L = 731-0) MONO x10^3 (test code 0.99 10*3/uL 0.36-1.02 = 742-7) EOS x10^3 (test code = 0.40 10*3/uL 0.06-0.53 711-2) BASO x10^3 (test code 0.06 10*3/uL 0.01-0.09 = 704-7) Lab Interpretation Abnormal (test code = 57902-8) [facility] WITH [id number] 11:07:49 Test Item Value Reference Range Interpretation [...] (test code = 59.9 fL 38.5-51.6 H 92884-2) RDW-CV (test code = 21.3 % 12.1-15.4 H 788-0) PLT (test code = See_Comment [Automated 777-3) message] The sy stem which generated this result transmitted reference range : 150 - 328 10*3/ ?L. The reference r mera was not used to interpret this result as normal/abnormal . MPV (test code = 9.5 fL 9.8-13.0 L 90042-7) NRBC/100 WBC (test See_Comment [Automat ed code = 7857584664) message] The system which generated this result transmitted reference range : 0.0 - 10.0 /100 WBCs. The refer ence range was not u sed to interpret th is result as normal/abnormal . NRBC x10^3 (test code <0.01 See_Comment [Auto mated = 1403759742) message] The s ystem which generated this result transmitted reference range : 10*3/?L. The reference range was not used to interpret this result as normal/abnormal . GRAN MAT (NEUT) % 77.1 % (test code = 770-8) IMM GRAN % (test code 0.30 % = 0778529636) LYMPH % (test code = 8.4 % 736-9) MONO % (test code = 9.7 % 5905-5) EOS % (test code = 3.9 % 713-8) BASO % (test code = 0.6 % 706-2) GRAN MAT x10^3(ANC) 7.91 10*3/uL 1.99-6.95 H (test code = 1089989390) IMM GRAN x10^3 (test 0.03 10*3/uL 0.00-0.06 code = 1292469901) LYMPH x10^3 (test code 0.86 10*3/uL 1.09-3.23 L = 731-0) MONO x10^3 (test code 0.99 10*3/uL 0.36-1.02 = 742-7) EOS x10^3 (test code = 0.40 10*3/uL 0.06-0.53 711-2) BASO x10^3 (test code 0.06 10*3/uL 0.01-0.09 = 704-7) Lab Interpretation Abnormal (test code = 16229-5) [facility] [id number] 04:10:46 Test Item Value Reference Interpretation Comments Range TROPONIN I (test 8.910 ng/mL See_Comment H [Automated code = 7050499431) message] The system which generated this result [...] biotin. Lab Interpretation Abnormal (test code = 10128-3) [facility] [id number] 04:10:46 Test Item Value Reference Interpretation Comments Range TROPONIN I (test 8.910 ng/mL See_Comment H [Automated code = 0569802363) message] The system which generated this result [...] biotin. Lab Interpretation Abnormal (test code = 63208-6) [facility] [id number] 04:10:46 Test Item Value Reference Interpretation Comments Range TROPONIN I (test 8.910 ng/mL See_Comment H [Automated code = 7916192204) message] The system which generated this result [...] biotin. Lab Interpretation Abnormal (test code = 96690-6) [facility] WITH [id number] 02:24:01 Test Item Value Reference Range Interpretation Comments WBC (test code = See_Comment H [Automated 6162-2) message] The system which generated this result transmit corie reference range : 4.20 - 10.70 10*3/?L. The reference range was not used to interpret this result as normal/abnormal . RBC (test code = See_Comment L [Automated 359-8) message] The system which generated this result [...] (test code = 59.7 fL 38.5-51.6 H 12652-9) RDW-CV (test code = 21.1 % 12.1-15.4 H 788-0) PLT (test code = See_Comment [Automated 777-3) message] The system which generated this result transmit corie reference range : 150 - 328 10*3/ ?L. The reference range was not u sed to interpret th is result as normal/abnormal . MPV (test code = 9.5 fL 9.8-13.0 L 21922-2) NRBC/100 WBC (test See_Comment [Automat ed code = 8502504500) message] The system which generated this result transmit corie reference range : 0.0 - 10.0 /100 WBCs. The reference range was not used to interpret this result as normal/abnormal . NRBC x10^3 (test code See_Comment [Auto mated = 7944033192) message] The system which generated this result transmit corie reference range : 10*3/?L. The reference range was not used to interpret this result as normal/abnormal . GRAN MAT (NEUT) % 83.6 % (test code = 770-8) IMM GRAN % (test code 0.50 % = 4962989185) LYMPH % (test code = 5.7 % 736-9) MONO % (test code = 7.4 % 5905-5) EOS % (test code = 2.5 % 713-8) BASO % (test code = 0.3 % 706-2) GRAN MAT x10^3(ANC) 10.90 10*3/uL 1.99-6.95 H (test code = 7694944096) IMM GRAN x10^3 (test 0.07 10*3/uL 0.00-0.06 H code = 4667047835) LYMPH x10^3 (test code 0.74 10*3/uL 1.09-3.23 L = 731-0) MONO x10^3 (test code 0.96 10*3/uL 0.36-1.02 = 742-7) EOS x10^3 (test code = 0.32 10*3/uL 0.06-0.53 711-2) BASO x10^3 (test code 0.04 10*3/uL 0.01-0.09 = 704-7) Lab Interpretation Abnormal (test code = 58905-0) [facility] WITH [id number] 02:24:01 Test Item Value Reference Range Interpretation [...] (test code = 59.7 fL 38.5-51.6 H 15568-7) RDW-CV (test code = 21.1 % 12.1-15.4 H 788-0) PLT (test code = See_Comment [Automated 777-3) message] The system which generated this result transmit corie reference range : 150 - 328 10*3/ ?L. The reference range was not u sed to interpret th is result as normal/abnormal . MPV (test code = 9.5 fL 9.8-13.0 L 23478-7) NRBC/100 WBC (test See_Comment [Automat ed code = 9458622333) message] The system which generated this result transmit corie reference range : 0.0 - 10.0 /100 WBCs. The reference range was not used to interpret this result as normal/abnormal . NRBC x10^3 (test code See_Comment [Auto mated = 8628332151) message] The system which generated this result transmit corie reference range : 10*3/?L. The reference range was not used to interpret this result as normal/abnormal . GRAN MAT (NEUT) % 83.6 % (test code = 770-8) IMM GRAN % (test code 0.50 % = 0459807560) LYMPH % (test code = 5.7 % 736-9) MONO % (test code = 7.4 % 5905-5) EOS % (test code = 2.5 % 713-8) BASO % (test code = 0.3 % 706-2) GRAN MAT x10^3(ANC) 10.90 10*3/uL 1.99-6.95 H (test code = 7668800310) IMM GRAN x10^3 (test 0.07 10*3/uL 0.00-0.06 H code = 7862893230) LYMPH x10^3 (test code 0.74 10*3/uL 1.09-3.23 L = 731-0) MONO x10^3 (test code 0.96 10*3/uL 0.36-1.02 = 742-7) EOS x10^3 (test code = 0.32 10*3/uL 0.06-0.53 711-2) BASO x10^3 (test code 0.04 10*3/uL 0.01-0.09 = 704-7) Lab Interpretation Abnormal (test code = 43227-2) [facility] WITH [id number] 02:24:01 Test Item Value Reference Range Interpretation [...] (test code = 59.7 fL 38.5-51.6 H 77627-6) RDW-CV (test code = 21.1 % 12.1-15.4 H 788-0) PLT (test code = See_Comment [Automated 777-3) message] The system which generated this result transmit corie reference range : 150 - 328 10*3/ ?L. The reference range was not u sed to interpret th is result as normal/abnormal . MPV (test code = 9.5 fL 9.8-13.0 L 52487-5) NRBC/100 WBC (test See_Comment [Automat ed code = 3519085858) message] The system which generated this result transmit corie reference range : 0.0 - 10.0 /100 WBCs. The reference range was not used to interpret this result as normal/abnormal . NRBC x10^3 (test code See_Comment [Auto mated = 1021006973) message] The system which generated this result transmit corie reference range : 10*3/?L. The reference range was not used to interpret this result as normal/abnormal . GRAN MAT (NEUT) % 83.6 % (test code = 770-8) IMM GRAN % (test code 0.50 % = 4275042815) LYMPH % (test code = 5.7 % 736-9) MONO % (test code = 7.4 % 5905-5) EOS % (test code = 2.5 % 713-8) BASO % (test code = 0.3 % 706-2) GRAN MAT x10^3(ANC) 10.90 10*3/uL 1.99-6.95 H (test code = 5283231182) IMM GRAN x10^3 (test 0.07 10*3/uL 0.00-0.06 H code = 1454997937) LYMPH x10^3 (test code 0.74 10*3/uL 1.09-3.23 L = 731-0) MONO x10^3 (test code 0.96 10*3/uL 0.36-1.02 = 742-7) EOS x10^3 (test code = 0.32 10*3/uL 0.06-0.53 711-2) BASO x10^3 (test code 0.04 10*3/uL 0.01-0.09 = 704-7) Lab Interpretation Abnormal (test code = 58385-0) [facility] GLUCOSE (AUTOMATED)2022-05-12 00:26:58 Test Item Value Reference Range Interpretation Comments POCT GLU (test code = 128 mg/dL 70-110 H Notifi ed Provider [id number]) Lab Interpretation (test Abnormal code = 25627-4) [facility] GLUCOSE (AUTOMATED)2022-05-12 00:26:58 Test Item Value Reference Range Interpretation Comments POCT GLU (test code = 128 mg/dL 70-110 H Notifi ed Provider [id number]) Lab Interpretation (test Abnormal code = 00346-1) [facility] GLUCOSE (AUTOMATED)2022-05-12 00:26:58 Test Item Value Reference Range Interpretation Comments POCT GLU (test code = 128 mg/dL 70-110 H Notifi ed Provider [id number]) Lab Interpretation (test Abnormal code = 42668-2) [facility] B Surface Antigen (HBsAg)2022-05-11 21:18:52 Test Item Value Reference Range Interpretation Comments HBsAg Semi-Quantitative (test code = Negative Negative 5195-3) [facility] B Surface Antigen (HBsAg)2022-05-11 21:18:52 Test Item Value Reference Range Interpretation Comments HBsAg Semi-Quantitative (test code = Negative Negative 5195-3) [facility] B Surface Antigen (HBsAg)2022-05-11 21:18:52 Test Item Value Reference Range Interpretation Comments HBsAg Semi-Quantitative (test code = Negative Negative 5195-3) [facility] GLUCOSE (AUTOMATED)2022-05-11 20:42:32 Test Item Value Reference Range Interpretation Comments POCT GLU (test code = 9610742689) 113 mg/dL 70-110 H Lab Interpretation (test code = Abnormal 37750-7) [facility] GLUCOSE (AUTOMATED)2022-05-11 20:42:32 Test Item Value Reference Range Interpretation Comments POCT GLU (test code = 3340906812) 113 mg/dL 70-110 H Lab Interpretation (test code = Abnormal 44466-7) [facility] GLUCOSE (AUTOMATED)2022-05-11 20:42:32 Test Item Value Reference Range Interpretation Comments POCT GLU (test code = 1334129585) 113 mg/dL 70-110 H Lab Interpretation (test code = Abnormal 52863-4) [facility] Packed RBC (in units), 1 Units 2022-05-11 17:45:52 Test Item Value Reference Range Interpretation Comments Cross Match Result Compatible (test code = 4409) ISBT Blood Type Code (test code = 999085) Unit Blood Type (test A Neg code = 4410) Unit Number (test [id number] code = 4411) Blood Expiration Date & Time (test code = 855924) Status Information Issued (test code = 4412) Product Red Blood Cells Identification (test code = 4413) Product Code (test L7962H78 Performed at [facility] code = 4414) Laboratory Services - [facility] Blood [address] [address]Ushy Free: [phone] A No. [id number] [facility] Packed RBC (in units), 1 Units 2022-05-11 17:45:52 Test Item Value Reference Range Interpretation Comments Cross Match Result Compatible (test code = 4409) ISBT Blood Type Code (test code = 911679) Unit Blood Type (test A Neg code = 4410) Unit Number (test [id number] code = 4411) Blood Expiration Date & Time (test code = 743198) Status Information Issued (test code = 4412) Product Red Blood Cells Identification (test code = 4413) Product Code (test F5171E25 Performed at [facility] code = 4414) Laboratory Services - [facility] Blood [address] [place] [address]Zeaq Free: [phone] A No. [id number] [facility] Packed RBC (in units), 1 Units 2022-05-11 17:45:52 Test Item Value Reference Range Interpretation Comments Cross Match Result Compatible (test code = 4409) ISBT Blood Type Code (test code = 660774) Unit Blood Type (test A Neg code = 4410) Unit Number (test [id number] code = 4411) Blood Expiration Date & Time (test code = 819254) Status Information Issued (test code = 4412) Product Red Blood Cells Identification (test code = 4413) Product Code (test N7087X91 Performed at [facility] code = 4414) Laboratory Services - [facility] Blood [address] [place], [place] [address]Flvp Free: [phone] A No. [id number] [facility] GLUCOSE (AUTOMATED)2022-05-11 17:13:26 Test Item Value Reference Range Interpretation Comments POCT GLU (test code = 2412397107) 227 mg/dL 70-110 H Lab Interpretation (test code = Abnormal 99434-7) [facility] GLUCOSE (AUTOMATED)2022-05-11 17:13:26 Test Item Value Reference Range Interpretation Comments POCT GLU (test code = 5517915200) 227 mg/dL 70-110 H Lab Interpretation (test code = Abnormal 52693-8) [facility] GLUCOSE (AUTOMATED)2022-05-11 17:13:26 Test Item Value Reference Range Interpretation Comments POCT GLU (test code = 1522613711) 227 mg/dL 70-110 H Lab Interpretation (test code = Abnormal 23447-7) [facility] INVESTIGATION [id number] 16:31:01 Test Item Value Reference Range Interpretation Comments ABO & RH (test code A Negative Performe d at [facility] = 20) Laboratory Serv ices - [facility] Blood [address] [place], [place] [address] 4Toll Free: [phone] 266CLIA No. [id number] [facility] INVESTIGATION [id number] 16:31:01 Test Item Value Reference Range Interpretation Comments ABO & RH (test code A Negative Performe d at [facility] = 20) Laboratory [facility] Blood [address] [place], [place] [address] 4Toll Free: [phone] 266CLIA No. [id number] [facility] [id number] 16:31:01 Test Item Value Reference Range Interpretation Comments ABO & RH (test code A Negative Performe d at [facility] = 20) Laboratory [facility] Blood [address] [place], [place] [address] 4Toll Free: [phone] 266CLIA No. [id number] [facility] and Screen - ONCE [id number] 15:20:27 Test Item Value Reference Range Interpretation Comments IAT (test code = Negative Performed a t [facility] 1185) Laboratory [facility] Blood Bvpf378 [facility] [place] [address]Dbkl Free: [phone] A No. [id number] [facility] and Screen - ONCE Edfkbbs6519-18-92 15:20:27 Test Item Value Reference Range Interpretation Comments IAT (test code = Negative Performed a t [facility] 1185) Laboratory [facility] Blood Vsbz745 [facility] [place] [address]Rgje Free: [phone] A No. [id number] [facility] and Screen - ONCE [id number] 15:20:27 Test Item Value Reference Range Interpretation Comments IAT (test code = Negative Performed a t [facility] 1185) Laboratory [facility] Blood Kysu333 [facility] [place] [address]Tcyf Free: [phone] A No. [id number] [facility] [id number] 15:01:29 Test Item Value Reference Interpretation Comments Range TROPONIN I (test 7.230 ng/mL See_Comment H [Automated code = 7421722029) message] The system which generated this result [...] biotin. Lab Interpretation Abnormal (test code = 91700-4) [facility] [id number] 15:01:29 Test Item Value Reference Interpretation Comments Range TROPONIN I (test 7.230 ng/mL See_Comment H [Automated code = 6394748878) message] The system which generated this result [...] biotin. Lab Interpretation Abnormal (test code = 50851-5) [facility] [id number] 15:01:29 Test Item Value Reference Interpretation Comments Range TROPONIN I (test 7.230 ng/mL See_Comment H [Automated code = 3941060948) message] The system which generated this result [...] biotin. Lab Interpretation Abnormal (test code = 05207-5) [facility] INVESTIGATION [id number] 14:53:50 Test Item Value Reference Range Interpretation Comments ABO & RH (test code A Negative Performe d at [facility] = 20) Laboratory Serv [facility] [employer] Blood Bank[address] [place] [address] 4Toll Free: [phone] 266CLIA No. [id number] [facility] INVESTIGATION [id number] 14:53:50 Test Item Value Reference Range Interpretation Comments ABO & RH (test code A Negative Performe d at [facility] = 20) Laboratory Serv [employer] Blood [address] [place], [place] [address] 4Toll Free: [phone] 266CLIA No. [id number] [facility] INVESTIGATION [id number] 14:53:50 Test Item Value Reference Range Interpretation Comments ABO & RH (test code A Negative Performe d at [facility] = 20) [facility] [employer] Blood [address] [place], [place] [address] 4Toll Free: [phone] 266CLIA No. [id number] [facility] THRM[facility] [id number] 14:49:27 Test Item Value Reference Range Interpretation Comments APTT Patient (test code = See_Comment [ Automated message] 3173-2) The system BISON generated this result transmitted ref erence range: 26 - 36 Seconds. The re ference range was not u sed to interpret this result as normal/abnor mal. Lab Interpretation (test Normal code = 55615-1) [facility]th[facility] Time (PTT) / [id number] 14:49:27 Test Item Value Reference Range Interpretation Comments PROTIME PATIENT (test See_Comment [Auto mated message] code = 5964-2) The system [employer]ust[employer] generated this result transmitted ref erence range: 10.1 - 1 2.6 Seconds. The re ference range was not u sed to interpret this result as normal/abnor mal. INR (test code = 6301-6) Nor mal INR <1.1; Warfarin Therap eutic range 2.0 to 3. 0 or 2.5 to 3.5, dep ending upon the indica tions. Lab Interpretation (test Normal code = 56926-8) [facility]2022-06-13 14:49:27 Test Item Value Reference Range Interpretation Comments Fibrinogen (test code = 0799028765) 337 mg/dL 167-453 Lab Interpretation (test code = Normal 45336-3) [facility] THRM[facility] [id number] 14:49:27 Test Item Value Reference Range Interpretation Comments APTT Patient (test code = See_Comment [ Automated message] 3173-2) The system [employer] h generated this result transmitted ref erence range: 26 - 36 Seconds. The re ference range was not u sed to interpret this result as normal/abnor mal. Lab Interpretation (test Normal code = 38897-9) [facility] Texas[facility]th[facility] Time (PTT) / [id number] 14:49:27 Test Item Value Reference Range Interpretation Comments PROTIME PATIENT (test See_Comment [Auto mated message] code = 5964-2) The system [employer] generated this result transmitted ref erence range: 10.1 - 1 2.6 Seconds. The re ference range was not u sed to interpret this result as normal/abnor mal. INR (test code = 6301-6) Nor mal INR <1.1; Warfarin Therap eutic range 2.0 to 3. 0 or 2.5 to 3.5, dep ending upon the indica tions. Lab Interpretation (test Normal code = 34508-5) [facility]2022-06-13 14:49:27 Test Item Value Reference Range Interpretation Comments Fibrinogen (test code = 8298273706) 337 mg/dL 167-453 Lab Interpretation (test code = Normal 28962-5) [facility] THRM[facility] [id number] 14:49:27 Test Item Value Reference Range Interpretation Comments APTT Patient (test code = See_Comment [ Automated message] 3173-2) The system whic h generated this result transmitted ref erence range: 26 - 36 Seconds. The re ference range was not u sed to interpret this result as normal/abnor mal. Lab Interpretation (test Normal code = 84894-9) [facility] TexasProth[facility] Time (PTT) / [id number] 14:49:27 Test Item Value Reference Range Interpretation [...] tions. Lab Interpretation (test Normal code = 18483-7) [facility]2022-06-13 14:49:27 Test Item Value Reference Range Interpretation Comments Fibrinogen (test code = 2709588981) 337 mg/dL 167-453 Lab Interpretation (test code = Normal 90596-0) [facility] WITH [id number] 14:36:05 Test Item Value Reference Range Interpretation Comments WBC (test code = See_Comment [Automated 4890-2) message] The sy stem which generated this result transmitted reference range : 4.20 - 10.70 10*3/?L. The reference range was not used to interpret this result as normal/abnormal . RBC (test code = See_Comment L [Automated 899-8) message] The sy stem which generated this [...] (test code = 61.1 fL 38.5-51.6 H 92130-4) RDW-CV (test code = 21.7 % 12.1-15.4 H 788-0) PLT (test code = See_Comment [Automated 777-3) message] The sy stem which generated this result transmitted reference range : 150 - 328 10*3/ ?L. The reference r mera was not used to interpret this result as normal/abnormal . MPV (test code = 9.3 fL 9.8-13.0 L 46369-2) NRBC/100 WBC (test See_Comment [Automat ed code = 9731254393) message] The system which generated this result transmitted reference range : 0.0 - 10.0 /100 WBCs. The refer ence range was not u sed to interpret th is result as normal/abnormal . NRBC x10^3 (test code See_Comment [Auto mated = 7020253683) message] The s ystem which generated this result transmitted reference range : 10*3/?L. The reference range was not used to interpret this result as normal/abnormal . GRAN MAT (NEUT) % 78.4 % (test code = 770-8) IMM GRAN % (test code 0.30 % = 7500750870) LYMPH % (test code = 9.4 % 736-9) MONO % (test code = 7.6 % 5905-5) EOS % (test code = 3.8 % 713-8) BASO % (test code = 0.5 % 706-2) GRAN MAT x10^3(ANC) 8.20 10*3/uL 1.99-6.95 H (test code = 3450704302) IMM GRAN x10^3 (test 0.03 10*3/uL 0.00-0.06 code = 6449618953) LYMPH x10^3 (test code 0.98 10*3/uL 1.09-3.23 L = 731-0) MONO x10^3 (test code 0.79 10*3/uL 0.36-1.02 = 742-7) EOS x10^3 (test code = 0.40 10*3/uL 0.06-0.53 711-2) BASO x10^3 (test code 0.05 10*3/uL 0.01-0.09 = 704-7) Lab Interpretation Abnormal (test code = 90764-3) [facility] WITH [id number] 14:36:05 Test Item Value Reference Range Interpretation [...] (test code = 61.1 fL 38.5-51.6 H 91797-7) RDW-CV (test code = 21.7 % 12.1-15.4 H 788-0) PLT (test code = See_Comment [Automated 777-3) message] The sy stem which generated this result transmitted reference range : 150 - 328 10*3/ ?L. The reference r mera was not used to interpret this result as normal/abnormal . MPV (test code = 9.3 fL 9.8-13.0 L 50809-1) NRBC/100 WBC (test See_Comment [Automat ed code = 6211533103) message] The system which generated this result transmitted reference range : 0.0 - 10.0 /100 WBCs. The refer ence range was not u sed to interpret th is result as normal/abnormal . NRBC x10^3 (test code See_Comment [Auto mated = 5225851406) message] The s ystem which generated this result transmitted reference range : 10*3/?L. The reference range was not used to interpret this result as normal/abnormal . GRAN MAT (NEUT) % 78.4 % (test code = 770-8) IMM GRAN % (test code 0.30 % = 7634471326) LYMPH % (test code = 9.4 % 736-9) MONO % (test code = 7.6 % 5905-5) EOS % (test code = 3.8 % 713-8) BASO % (test code = 0.5 % 706-2) GRAN MAT x10^3(ANC) 8.20 10*3/uL 1.99-6.95 H (test code = 1506424168) IMM GRAN x10^3 (test 0.03 10*3/uL 0.00-0.06 code = 6302032683) LYMPH x10^3 (test code 0.98 10*3/uL 1.09-3.23 L = 731-0) MONO x10^3 (test code 0.79 10*3/uL 0.36-1.02 = 742-7) EOS x10^3 (test code = 0.40 10*3/uL 0.06-0.53 711-2) BASO x10^3 (test code 0.05 10*3/uL 0.01-0.09 = 704-7) Lab Interpretation Abnormal (test code = 61076-0) [facility] WITH [id number] 14:36:05 Test Item Value Reference Range Interpretation Comments WBC (test code = See_Comment [Automated 7390-2) message] The sy stem which generated this result transmitted reference range : 4.20 - 10.70 10*3/?L. The reference range was not used to interpret this result as normal/abnormal . RBC (test code = See_Comment L [Automated 9-8) message] The sy stem which generated this [...] (test code = 61.1 fL 38.5-51.6 H 26519-9) RDW-CV (test code = 21.7 % 12.1-15.4 H 788-0) PLT (test code = See_Comment [Automated 777-3) message] The sy stem which generated this result transmitted reference range : 150 - 328 10*3/ ?L. The reference r mera was not used to interpret this result as normal/abnormal . MPV (test code = 9.3 fL 9.8-13.0 L 29073-5) NRBC/100 WBC (test See_Comment [Automat ed code = 5952013251) message] The system which generated this result transmitted reference range : 0.0 - 10.0 /100 WBCs. The refer ence range was not u sed to interpret th is result as normal/abnormal . NRBC x10^3 (test code See_Comment [Auto mated = 4291930466) message] The s ystem which generated this result transmitted reference range : 10*3/?L. The reference range was not used to interpret this result as normal/abnormal . GRAN MAT (NEUT) % 78.4 % (test code = 770-8) IMM GRAN % (test code 0.30 % = 0175122474) LYMPH % (test code = 9.4 % 736-9) MONO % (test code = 7.6 % 5905-5) EOS % (test code = 3.8 % 713-8) BASO % (test code = 0.5 % 706-2) GRAN MAT x10^3(ANC) 8.20 10*3/uL 1.99-6.95 H (test code = 0522215202) IMM GRAN x10^3 (test 0.03 10*3/uL 0.00-0.06 code = 5116888907) LYMPH x10^3 (test code 0.98 10*3/uL 1.09-3.23 L = 731-0) MONO x10^3 (test code 0.79 10*3/uL 0.36-1.02 = 742-7) EOS x10^3 (test code = 0.40 10*3/uL 0.06-0.53 711-2) BASO x10^3 (test code 0.05 10*3/uL 0.01-0.09 = 704-7) Lab Interpretation Abnormal (test code = 95068-0) [facility]an[facility] (TTE)2022-05-11 11:50:27 Test Item Value Reference Range Interpretation Comments Height (test code = in 6708147156) Weight (test code = lbs 5983824634) Systolic BP (test code = mmHg 9499244591) Diastolic BP (test code = mmHg 5842277697) Heart Rate (test code = bpm 2774837645) EF(Teich) (test code = 42.80 % 9029452161) LVIDD (test code = 5.00 cm 6905983944) LVIDS (test code = 3.90 cm 9393306572) IVS (test code = 1.65 cm 0363188036) LVPWD (test code = 1.89 cm 1879684123) LVOT diameter (test code 2.10 cm = 4049007558) FS (test code = 21 % 1662756406) MV Peak E Antoine (test code 101.0 cm/s = 2671061435) MV Peak A Antoine (test code 77.1 cm/s = 2540002236) E/A ratio (test code = ratio 8399421546) E wave decelartion time 0.15 s (test code = 2600179996) LA Volume Index (BP) 36.4 mL/m2 (test code = 1957103476) LA volume (BP) (test code 85.1 mL = 9726060041) LVOT peak antoine (test code 113.0 cm/s = 9835300666) BSA (test code = 2.34 m2 0036569795) LA size (test code = 5.0 cm 9823109075) LAV(MOD-sp2) (test code = 76.00 mL 0347561687) LAV(MOD-sp4) (test code = 89.30 mL 5905060509) Tapse (test code = 2.42 cm 3462644986) Ao peak antoine (test code = 147.0 cm/s 8015816123) AV LVOT peak gradient mmHg (test code = 7261103644) AV area peak antoine (test 2.7 cm2 code = 2733770431) AV Doppler antoine index VTI ratio (test code = 7750836324) Ao max PG (test code = 8.60 mm[Hg] 3801159833) MV Prop V (test code = 69.50 cm/s 0675114890) TR Peak Antoine (test code = 247.3 cm/s 2808567995) Triscuspid Valve mmHg Regurgitation Peak Gradient (test code = 6773637336) Ao root annulus (test 3.5 cm code = 4419476631) Ao root diam (test code = 3.50 cm 3284043570) AV peak gradient (test mmHg code = 6740470731) Aortic root (test code = 3.5 cm 3523310155) PW (test code = 1.89 cm 0.6-1.9 5462767521) EF - 2D (test code = 42.80 % 92010044) Interventricular Septum 1.65 cm Diastolic Thickness by 2D (test code = 4307007) Radiology Study observation (narrative) (test code = 10575-6) JINNY (test code = JINNY) ?Left?Ventricle: Left ventricle is mildly dilated. There is mild concentric hypertrophy. Mild global hypokinesis present with akinetic apex. Mildly reduced systolic function with a visually estimated EF of 40 - 45%. There is impaired relaxation. ?Right?Ventricle: Right ventricle is normal in size and function. [facility] (TTE[facility]2022-05-11 11:50:27 Test Item Value Reference Range Interpretation Comments Height (test code = in 5125775528) Weight (test code = lbs 2737896813) Systolic BP (test code = mmHg 0897557734) Diastolic BP (test code = mmHg 9714073700) Heart Rate (test code = bpm 9719770980) EF(Teich) (test code = 42.80 % 9916743759) LVIDD (test code = 5.00 cm 6805661645) LVIDS (test code = 3.90 cm 0914113717) IVS (test code = 1.65 cm 8267995222) LVPWD (test code = 1.89 cm 4081070478) LVOT diameter (test code 2.10 cm = 0137640607) FS (test code = 21 % 7597623357) MV Peak E Antoine (test code 101.0 cm/s = 8897379275) MV Peak A Antoine (test code 77.1 cm/s = 7459444779) E/A ratio (test code = ratio 1934365578) E wave decelartion time 0.15 s (test code = 5677791180) LA Volume Index (BP) 36.4 mL/m2 (test code = 9929961866) LA volume (BP) (test code 85.1 mL = 1624059115) LVOT peak antoine (test code 113.0 cm/s = 1730044419) BSA (test code = 2.34 m2 9118367408) LA size (test code = 5.0 cm 1053702169) LAV(MOD-sp2) (test code = 76.00 mL 6234051723) LAV(MOD-sp4) (test code = 89.30 mL 6783971608) Tapse (test code = 2.42 cm 0850780591) Ao peak antoine (test code = 147.0 cm/s 0337242336) AV LVOT peak gradient mmHg (test code = 4536465092) AV area peak antoine (test 2.7 cm2 code = 9051587237) AV Doppler antoine index VTI ratio (test code = 0377272968) Ao max PG (test code = 8.60 mm[Hg] 7374742502) MV Prop V (test code = 69.50 cm/s 7934982587) TR Peak Antoine (test code = 247.3 cm/s 5477216557) Triscuspid Valve mmHg Regurgitation Peak Gradient (test code = 0313507828) Ao root annulus (test 3.5 cm code = 6002323370) Ao root diam (test code = 3.50 cm 4881116870) AV peak gradient (test mmHg code = 7452252824) Aortic root (test code = 3.5 cm 3306919315) PW (test code = 1.89 cm 0.6-1.4 9085052479) EF - 2D (test code = 42.80 % 47996522) Interventricular Septum 1.65 cm Diastolic Thickness by 2D (test code = 2469965) Radiology Study observation (narrative) (test code = 51540-7) JINNY (test code = JINNY) ?Left?Ventricle: Left ventricle is mildly dilated. There is mild concentric hypertrophy. Mild global hypokinesis present with akinetic apex. Mildly reduced systolic function with a visually estimated EF of 40 - 45%. There is impaired relaxation. ?Right?Ventricle: Right ventricle is normal in size and function. [facility] ([facility]2022-05-11 11:50:27 Test Item Value Reference Range Interpretation Comments Height (test code = in 1750612571) Weight (test code = lbs 2299533194) Systolic BP (test code = mmHg 3637794393) Diastolic BP (test code = mmHg 3210946786) Heart Rate (test code = bpm 5369627273) EF(Teich) (test code = 42.80 % 9265333661) LVIDD (test code = 5.00 cm 2988860336) LVIDS (test code = 3.90 cm 3298458097) IVS (test code = 1.65 cm 3641454874) LVPWD (test code = 1.89 cm 7751745032) LVOT diameter (test code 2.10 cm = 6367691063) FS (test code = 21 % 6690358459) MV Peak E Antoine (test code 101.0 cm/s = 0325196585) MV Peak A Antoine (test code 77.1 cm/s = 6084923913) E/A ratio (test code = ratio 0749766790) E wave decelartion time 0.15 s (test code = 4676029912) LA Volume Index (BP) 36.4 mL/m2 (test code = 3976430515) LA volume (BP) (test code 85.1 mL = 1386982192) LVOT peak antoine (test code 113.0 cm/s = 5472595487) BSA (test code = 2.34 m2 2411996595) LA size (test code = 5.0 cm 4912054255) LAV(MOD-sp2) (test code = 76.00 mL 0800991714) LAV(MOD-sp4) (test code = 89.30 mL 6866116491) Tapse (test code = 2.42 cm 8913285731) Ao peak antoine (test code = 147.0 cm/s 8450223246) AV LVOT peak gradient mmHg (test code = 0427166756) AV area peak antoine (test 2.7 cm2 code = 3162911569) AV Doppler antoine index VTI ratio (test code = 0676487924) Ao max PG (test code = 8.60 mm[Hg] 3167845870) MV Prop V (test code = 69.50 cm/s 3833933501) TR Peak Antoine (test code = 247.3 cm/s 0621544210) Triscuspid Valve mmHg Regurgitation Peak Gradient (test code = 6314767875) Ao root annulus (test 3.5 cm code = 6323258730) Ao root diam (test code = 3.50 cm 7040692263) AV peak gradient (test mmHg code = 9374330171) Aortic root (test code = 3.5 cm 3113886330) PW (test code = 1.89 cm 0.6-1.6 5016064429) EF - 2D (test code = 42.80 % 52230306) Interventricular Septum 1.65 cm Diastolic Thickness by 2D (test code = 3098459) Radiology Study observation (narrative) (test code = 83178-8) JINNY (test code = JINNY) ?Left?Ventricle: Left ventricle is mildly dilated. There is mild concentric hypertrophy. Mild global hypokinesis present with akinetic apex. Mildly reduced systolic function with a visually estimated EF of 40 - 45%. There is impaired relaxation. ?Right?Ventricle: Right ventricle is normal in size and function. [facility] [id number] 09:24:43 Test Item Value Reference Interpretation Comments Range TROPONIN I (test 8.540 ng/mL See_Comment H [Automated code = 6829611039) message] The system which generated this result [...] biotin. Lab Interpretation Abnormal (test code = 79725-3) [facility] [id number] 09:24:43 Test Item Value Reference Interpretation Comments Range TROPONIN I (test 8.540 ng/mL See_Comment H [Automated code = 3415213221) message] The system which generated this result [...] biotin. Lab Interpretation Abnormal (test code = 85808-8) [facility] [id number] 09:24:43 Test Item Value Reference Interpretation Comments Range TROPONIN I (test 8.540 ng/mL See_Comment H [Automated code = 5525689748) message] The system which generated this result [...] biotin. Lab Interpretation Abnormal (test code = 03854-3) [facility] [id number] 08:53:19 Test Item Value Reference Range Interpretation Comments WBC (test code = 6690-2) See_Comment H [A utomated message] The system [employer] generated this result transmit corie reference range : 4.20 - 10.70 10*3/?L. The reference range was not used to interpret this result as normal/abnormal . RBC (test code = 789-8) See_Comment L [Au tomated message] The system [employer] generated this result transmit corie reference range [...] 777-3) See_Comment [Au tomated message] The system [employer] generated this result transmit corie reference range : 150 - 328 10*3/?L. The reference range was not used to interpret this result as normal/abnormal . MPV (test code = 9.5 fL 9.8-13.0 L 50162-1) RDW-CV (test code = 21.3 % 12.1-15.4 H 788-0) RDW-SD (test code = 58.9 fL 38.5-51.6 H 82487-2) NRBC x10^3 (test code = See_Comment [Au tomated message] 6323019218) The system [facility] generated this result transmit corie reference range : 10*3/?L. The reference range was not used to interpret this result as normal/abnormal . NRBC/100 WBC (test code See_Comment [Au tomated message] = 4792606766) The system [facility] generated this result transmit corie reference range : 0.0 - 10.0 /100 WBC s. The reference r mera was not used to interpret this result as normal/abnormal . IPF % (test code = 8977038396) Lab Interpretation (test Abnormal code = 97567-8) [facility] [id number] 08:53:19 Test Item Value Reference Range Interpretation Comments WBC (test code = 6690-2) See_Comment H [A utomated message] The system [facility] generated this result transmit corie reference range : 4.20 - 10.70 10*3/?L. The reference range was not used to interpret this result as normal/abnormal . RBC (test code = 789-8) See_Comment L [Au tomated message] The system [facility] generated this result transmit corie reference [...] 777-3) See_Comment [Au tomated message] The system [facility] generated this result transmit corie reference range : 150 - 328 10*3/?L. The reference range was not used to interpret this result as normal/abnormal . MPV (test code = 9.5 fL 9.8-13.0 L 02693-7) RDW-CV (test code = 21.3 % 12.1-15.4 H 788-0) RDW-SD (test code = 58.9 fL 38.5-51.6 H 76214-5) NRBC x10^3 (test code = See_Comment [Au tomated message] 6259914224) The system [employer] generated this result transmit corie reference range : 10*3/?L. The reference range was not used to interpret this result as normal/abnormal . NRBC/100 WBC (test code See_Comment [Au tomated message] = 4182107577) The system [facility] generated this result transmit corie reference range : 0.0 - 10.0 /100 WBC s. The reference r mera was not used to interpret this result as normal/abnormal . IPF % (test code = 0709630486) Lab Interpretation (test Abnormal code = 65216-9) [facility] [id number] 08:53:19 Test Item Value Reference Range Interpretation Comments WBC (test code = 6690-2) See_Comment H [A utomated message] The system [employer] generated this result transmit corie reference range : 4.20 - 10.70 10*3/?L. The reference range was not used to interpret this result as normal/abnormal . RBC (test code = 789-8) See_Comment L [Au tomated message] [facility] generated this result transmit corie [...] 777-3) See_Comment [Au tomated message] The system [employer] generated this result transmit corie reference range : 150 - 328 10*3/?L. The reference range was not used to interpret this result as normal/abnormal . MPV (test code = 9.5 fL 9.8-13.0 L 47950-6) RDW-CV (test code = 21.3 % 12.1-15.4 H 788-0) RDW-SD (test code = 58.9 fL 38.5-51.6 H 75286-8) NRBC x10^3 (test code = See_Comment [Au tomated message] 6689602119) The system [employer] generated this result transmit corie reference range : 10*3/?L. The reference range was not used to interpret this result as normal/abnormal . NRBC/100 WBC (test code See_Comment [Au tomated message] = 8123236088) The system [employer] generated this result transmit corie reference range : 0.0 - 10.0 /100 WBC s. The reference r mera was not used to interpret this result as normal/abnormal . IPF % (test code = 6082890315) Lab Interpretation (test Abnormal code = 40966-6) [facility] 06:27:39 Test Item Value Reference Range Interpretation Comments Anti-Xa UFH (test code = <0.04 See_Comment L [A utomated message] 3274-8) The system [employer] generated this result transmitted ref erence range: 0.30 - 0 .70 IU/mL. The refe rence range was not u sed to interpret this result as normal/abnor mal. Lab Interpretation (test Abnormal code = 09171-6) [facility] 2022-05-11 06:27:39 Test Item Value Reference Range Interpretation Comments Anti-Xa UFH (test code = <0.04 See_Comment L [A utomated message] 3274-8) The system [employer] generated this result transmitted ref erence range: 0.30 - 0 .70 IU/mL. The refe rence range was not u sed to interpret this result as normal/abnor mal. Lab Interpretation (test Abnormal code = 91753-3) [facility] 2022-[facility]-11 06:27:39 Test Item Value Reference Range Interpretation Comments Anti-Xa UFH (test code = <0.04 See_Comment L [A utomated message] 3274-8) The system [employer] generated this result transmitted ref erence range: 0.30 - 0 .70 IU/mL. The refe rence range was not u sed to interpret this result as normal/abnor mal. Lab Interpretation (test Abnormal code = 07610-1) [facility] [id number] 04:33:32 Test Item Value Reference Interpretation Comments Range TROPONIN I (test 7.870 ng/mL See_Comment H [Automated code = 7033619451) message] The system which generated this result [...] biotin. Lab Interpretation Abnormal (test code = 37697-3) [facility] [id number] 04:33:32 Test Item Value Reference Interpretation Comments Range TROPONIN I (test 7.870 ng/mL See_Comment H [Automated code = 3323480282) message] The system which generated this result [...] biotin. Lab Interpretation Abnormal (test code = 92151-2) [facility] [id number] 04:33:32 Test Item Value Reference Interpretation Comments Range TROPONIN I (test 7.870 ng/mL See_Comment H [Automated code = 3225747548) message] The system which generated this result [...] biotin. Lab Interpretation Abnormal (test code = 69867-8) [facility] (for use with Heparin Infusion)2022-05-11 04:09:30 Test Item Value Reference Range Interpretation Comments APTT Patient (test code See_Comment H [Au tomated message] = 3173-2) The system [employer] generated this result transmitted ref erence range: 26 - 36 Seconds. The reference range was not used to int erpret this result as normal/abnormal . Lab Interpretation (test Abnormal code = 14019-7) [facility] (for use with Heparin Infusion)2022-05-11 04:09:30 Test Item Value Reference Range Interpretation Comments APTT Patient (test code See_Comment H [Au tomated message] = 3173-2) The system [employer] generated this result transmitted ref erence range: 26 - 36 Seconds. The reference range was not used to int erpret this result as normal/abnormal . Lab Interpretation (test Abnormal code = 70422-6) [facility]2022-05-11 04:09:30 Test Item Value Reference Range Interpretation Comments APTT Patient (test code See_Comment H [Au tomated message] = 3173-2) The system [employer] generated this result transmitted ref erence range: 26 - 36 Seconds. The reference range was not used to int erpret this result as normal/abnormal . Lab Interpretation (test Abnormal code = 24892-9) [facility] GLUCOSE (AUTOMATED)2022-05-11 01:53:15 Test Item Value Reference Range Interpretation Comments POCT GLU (test code = 8175636105) 237 mg/dL 70-110 H Lab Interpretation (test code = Abnormal 63272-4) [facility] GLUCOSE (AUTOMATED)2022-05-11 01:53:15 Test Item Value Reference Range Interpretation Comments POCT GLU (test code = 0319768479) 237 mg/dL 70-110 H Lab Interpretation (test code = Abnormal 17579-6) [facility] GLUCOSE (AUTOMATED)2022-05-11 01:53:15 Test Item Value Reference Range Interpretation Comments POCT GLU (test code = 6802992392) 237 mg/dL 70-110 H Lab Interpretation (test code = Abnormal 59042-9) [facility] [id number] 01:30:04 Test Item Value Reference Range Interpretation Comments WBC (test code = 6690-2) See_Comment H [A utomated message] The system [employer] generated this result transmit corei reference range : 4.20 - 10.70 10*3/?L. The reference range was not used to interpret this result as normal/abnormal . RBC (test code = 789-8) See_Comment L [Au tomated message] The system [employer] generated this result transmit corie reference range [...] 777-3) See_Comment [Au tomated message] The system [facility] generated this result transmit corie reference range : 150 - 328 10*3/?L. The reference range was not used to interpret this result as normal/abnormal . MPV (test code = 9.6 fL 9.8-13.0 L 45036-7) RDW-CV (test code = 20.8 % 12.1-15.4 H 788-0) RDW-SD (test code = 58.5 fL 38.5-51.6 H 58469-9) NRBC x10^3 (test code = See_Comment [Au tomated message] 8330513138) The system [facility] generated this result transmit corie reference range : 10*3/?L. The reference range was not used to interpret this result as normal/abnormal . NRBC/100 WBC (test code See_Comment [Au tomated message] = 8765583459) The system [facility] generated this result transmit corie reference range : 0.0 - 10.0 /100 WBC s. The reference r mera was not used to interpret this result as normal/abnormal . IPF % (test code = 7932945939) Lab Interpretation (test Abnormal code = 43809-9) [facility] [id number] 01:30:04 Test Item Value Reference Range Interpretation Comments WBC (test code = 6690-2) See_Comment H [A utomated message] The system [facility] generated this result transmit corie reference range : 4.20 - 10.70 10*3/?L. The reference range was not used to interpret this result as normal/abnormal . RBC (test code = 789-8) See_Comment L [Au tomated message] The system [facility] generated this result transmit corie reference [...] 777-3) See_Comment [Au tomated message] The system [facility] generated this result transmit corie reference range : 150 - 328 10*3/?L. The reference range was not used to interpret this result as normal/abnormal . MPV (test code = 9.6 fL 9.8-13.0 L 00531-3) RDW-CV (test code = 20.8 % 12.1-15.4 H 788-0) RDW-SD (test code = 58.5 fL 38.5-51.6 H 17846-8) NRBC x10^3 (test code = See_Comment [Au tomated message] 9990799653) The system [employer] generated this result transmit corie reference range : 10*3/?L. The reference range was not used to interpret this result as normal/abnormal . NRBC/100 WBC (test code See_Comment [Au tomated message] = 2639581650) The system [facility] generated this result transmit corie reference range : 0.0 - 10.0 /100 WBC s. The reference r mera was not used to interpret this result as normal/abnormal . IPF % (test code = 3631919461) Lab Interpretation (test Abnormal code = 44453-3) [facility] [id number] 01:30:04 Test Item Value Reference Range Interpretation Comments WBC (test code = 6690-2) See_Comment H [A utomated message] The system [employer] generated this result transmit corie reference range : 4.20 - 10.70 10*3/?L. The reference range was not used to interpret this result as normal/abnormal . RBC (test code = 789-8) See_Comment L [Au tomated message] The system [employer] generated this result transmit corie reference range [...] 777-3) See_Comment [Au tomated message] The system [employer] generated this result transmit corie reference range : 150 - 328 10*3/?L. The reference range was not used to interpret this result as normal/abnormal . MPV (test code = 9.6 fL 9.8-13.0 L 25643-3) RDW-CV (test code = 20.8 % 12.1-15.4 H 788-0) RDW-SD (test code = 58.5 fL 38.5-51.6 H 07455-6) NRBC x10^3 (test code = See_Comment [Au tomated message] 7941719733) The system [employer] generated this result transmit corie reference range : 10*3/?L. The reference range was not used to interpret this result as normal/abnormal . NRBC/100 WBC (test code See_Comment [Au tomated message] = 3980577391) The system [employer] generated this result transmit corie reference range : 0.0 - 10.0 /100 WBC s. The reference r mera was not used to interpret this result as normal/abnormal . IPF % (test code = 0223716734) Lab Interpretation (test Abnormal code = 79447-1) [facility] 22:45[facility]58 Test Item Value Reference Range Interpretation Comments APTT Patient (test code = See_Comment [ Automated message] 3173-2) The system [employer] generated this result transmitted ref erence range: 26 - 36 Seconds. The re ference range was not u sed to interpret this result as normal/abnor mal. Lab Interpretation (test Normal code = 46064-2) [place] [id number] 22:45:58 Test Item Value Reference Range Interpretation Comments APTT Patient (test code = See_Comment [ Automated message] 3173-2) The system [employer] generated this result transmitted ref erence range: 26 - 36 Seconds. The re ference range was not u sed to interpret this result as normal/abnor mal. Lab Interpretation (test Normal code = 11050-1) [facility] Test Item Value Reference Range Interpretation Comments APTT Patient (test code = See_Comment [ Automated message] 3173-2) The system [employer] generated this result transmitted ref erence range: 26 - 36 Seconds. The re ference range was not u sed to interpret this result as normal/abnor mal. Lab Interpretation (test Normal code = 39248-1) [facility] GLUCOSE (AUTOMATED)2022-05-10 22:05:29 Test Item Value Reference Range Interpretation Comments POCT GLU (test code = 3015684331) 176 mg/dL 70-110 H Lab Interpretation (test code = Abnormal 52459-1) [facility] GLUCOSE (AUTOMATED)2022-05-10 22:05:29 Test Item Value Reference Range Interpretation Comments POCT GLU (test code = 2394658916) 176 mg/dL 70-110 H Lab Interpretation (test code = Abnormal 49513-4) [facility] GLUCOSE (AUTOMATED)2022-05-10 22:05:29 Test Item Value Reference Range Interpretation Comments POCT GLU (test code = 2714436595) 176 mg/dL 70-110 H Lab Interpretation (test code = Abnormal 21098-8) [id number] Test Item Value Reference Interpretation Comments Range TROPONIN I (test 7.080 ng/mL See_Comment H [Automated code = 2389170471) message] The system which generated this result [...] biotin. Lab Interpretation Abnormal (test code = 39629-4) [facility] [id number] 21:28:32 Test Item Value Reference Interpretation Comments Range TROPONIN I (test 7.080 ng/mL See_Comment H [Automated code = 5089098718) message] The system which generated this result [...] biotin. Lab Interpretation Abnormal (test code = 38749-3) [facility] [id number] 21:28:32 Test Item Value Reference Interpretation Comments Range TROPONIN I (test 7.080 ng/mL See_Comment H [Automated code = 3823950423) message] The system which generated this result [...] biotin. Lab Interpretation Abnormal (test code = 25527-2) [facility] P[facility] RBC (in units), 1 Units 2022-05-10 19:44:52 Test Item Value Reference Range Interpretation Comments Cross Match Result Compatible (test code = 4409) ISBT Blood Type Code (test code = 659480) Unit Blood Type (test A Neg code = 4410) Unit Number (test [id number] code = 4411) Blood Expiration Date & Time (test code = 609628) Status Information Issued (test code = 4412) Product Red Blood Cells Identification (test code = 4413) Product Code (test B8038U07 Performed at [facility] code = 4414) [facility] Blood [address] Free: [phone] [facility]. [id number] [facility] (in units), 1 Units 2022-05-10 19:44:52 Test Item Value Reference Range Interpretation Comments Cross Match Result Compatible (test code = 4409) ISBT Blood Type Code (test code = 742154) Unit Blood Type (test A Neg code = 4410) Unit Number (test [id number] code = 4411) Blood Expiration Date & Time (test code = 983219) Status Information Issued (test code = 4412) Product Red Blood Cells Identification (test code = 4413) Product Code (test C9183X26 Performed at [facility] code = 4414) [facility] - [facility] Blood [address] [place], [place] [id number] Free: [phone] A No. [id number] [facility] Packed RBC (in units), 1 Units 2022-05-10 19:44:52 Test Item Value Reference Range Interpretation Comments Cross Match Result Compatible (test code = 4409) ISBT Blood Type Code (test code = 542432) Unit Blood Type (test A Neg code = 4410) Unit Number (test [id number] code = 4411) Blood Expiration Date & Time (test code = 675492) Status Information Issued (test code = 4412) Product Red Blood Cells Identification (test code = 4413) Product Code (test [id number] Performed at [facility] code = 4414) Laboratory Services - [facility] Blood [address] [place] [address]Arm[address] Free: [phone] A No. [id number] [facility] [id number] 18:01:06 Test Item Value Reference Range Interpretation Comments WBC (test code = 6690-2) See_Comment [A utomated message] The system [employer] generated this result transmit corie reference range : 4.20 - 10.70 10*3/?L. The reference range was not used to interpret this result as normal/abnormal . RBC (test code = 789-8) See_Comment L [Au tomated message] The system [employer] generated this result transmit corie reference range [...] 777-3) See_Comment [Au tomated message] The system [employer] generated this result transmit corie reference range : 150 - 328 10*3/?L. The reference range was not used to interpret this result as normal/abnormal . MPV (test code = 9.7 fL 9.8-13.0 L 93306-1) RDW-CV (test code = 18.8 % 12.1-15.4 H 788-0) RDW-SD (test code = 55.4 fL 38.5-51.6 H 50885-8) NRBC x10^3 (test code = See_Comment [Au tomated message] 1359673064) The system [employer] generated this result transmit corie reference range : 10*3/?L. The reference range was not used to interpret this result as normal/abnormal . NRBC/100 WBC (test code See_Comment [Au tomated message] = 9223054752) The system [facility] generated this result transmit corie reference range : 0.0 - 10.0 /100 WBC s. The reference r mera was not used to interpret this result as normal/abnormal . IPF % (test code = 2003744381) Lab Interpretation (test Abnormal code = 53535-9) [facility] [id number] 18:01:06 Test Item Value Reference Range Interpretation Comments WBC (test code = 6690-2) See_Comment [A utomated message] The system [employer] generated this result transmit corie reference range : 4.20 - 10.70 10*3/?L. The reference range was not used to interpret this result as normal/abnormal . RBC (test code = 789-8) See_Comment L [Au tomated message] The system [employer] generated this result transmit corie reference range [...] 777-3) See_Comment [Au tomated message] The system [employer] generated this result transmit corie reference range : 150 - 328 10*3/?L. The reference range was not used to interpret this result as normal/abnormal . MPV (test code = 9.7 fL 9.8-13.0 L 70144-1) RDW-CV (test code = 18.8 % 12.1-15.4 H 788-0) RDW-SD (test code = 55.4 fL 38.5-51.6 H 20662-3) NRBC x10^3 (test code = See_Comment [Au tomated message] 9783848663) The system [employer] generated this result transmit corie reference range : 10*3/?L. The reference range was not used to interpret this result as normal/abnormal . NRBC/100 WBC (test code See_Comment [Au tomated message] = 7599525783) The system [facility] generated this result transmit corie reference range : 0.0 - 10.0 /100 WBC s. The reference r mera was not used to interpret this result as normal/abnormal . IPF % (test code = 7610822611) Lab Interpretation (test Abnormal code = 04195-0) [facility] [id number] 18:01:06 Test Item Value Reference Range Interpretation Comments WBC (test code = 6690-2) See_Comment [A utomated message] The system [employer] generated this result transmit corie reference range : 4.20 - 10.70 10*3/?L. The reference range was not used to interpret this result as normal/abnormal . RBC (test code = 789-8) See_Comment L [Au tomated message] The system [employer] generated this result transmit corie reference range [...] 777-3) See_Comment [Au tomated message] The system [employer] generated this result transmit corie reference range : 150 - 328 10*3/?L. The reference range was not used to interpret this result as normal/abnormal . MPV (test code = 9.7 fL 9.8-13.0 L 71360-0) RDW-CV (test code = 18.8 % 12.1-15.4 H 788-0) RDW-SD (test code = 55.4 fL 38.5-51.6 H 95706-2) NRBC x10^3 (test code = See_Comment [Au tomated message] 4227868409) The system [employer] generated this result transmit corie reference range : 10*3/?L. The reference range was not used to interpret this result as normal/abnormal . NRBC/100 WBC (test code See_Comment [Au tomated message] = 7611964473) The system [employer] generated this result transmit corie reference range : 0.0 - 10.0 /100 WBC s. The reference r mera was not used to interpret this result as normal/abnormal . IPF % (test code = 1700314469) Lab Interpretation (test Abnormal code = 12744-5) [facility] GLUCOSE (AUTOMATED)2022-05-10 17:54:10 Test Item Value Reference Range Interpretation Comments POCT GLU (test code = 6159935279) 208 mg/dL 70-110 H Lab Interpretation (test code = Abnormal 31452-7) [facility] GLUCOSE (AUTOMATED)2022-05-10 17:54:10 Test Item Value Reference Range Interpretation Comments POCT GLU (test code = 1605696734) 208 mg/dL 70-110 H Lab Interpretation (test code = Abnormal 49087-0) [facility] GLUCOSE (AUTOMATED)2022-05-10 17:54:10 Test Item Value Reference Range Interpretation Comments POCT GLU (test code = 7627309479) 208 mg/dL 70-110 H Lab Interpretation (test code = Abnormal 93176-2) [facility] [id number] 14:56:47 Test Item Value Reference Range Interpretation Comments FERRITIN (test code = 175.0 ng/mL 18.0-464.0 9384433244) JINNY (test code = JINNY) Biotin has been reported to cause a negative bias, interpret results relative to patient's use of biotin. Lab Interpretation (test Normal code = 23613-5) [facility] [id number] 14:56:47 Test Item Value Reference Range Interpretation Comments FERRITIN (test code = 175.0 ng/mL 18.0-464.0 5676416497) JINNY (test code = JINNY) Biotin has been reported to cause a negative bias, interpret results relative to patient's use of biotin. Lab Interpretation (test Normal code = 07607-0) [facility] [id number] 14:56:47 Test Item Value Reference Range Interpretation Comments FERRITIN (test code = 175.0 ng/mL 18.0-464.0 1814599792) JINNY (test code = JINNY) Biotin has been reported to cause a negative bias, interpret results relative to patient's use of biotin. Lab Interpretation (test Normal code = 27261-7) [facility] GLUCOSE (AUTOMATED)2022-05-10 13:20:35 Test Item Value Reference Range Interpretation Comments POCT GLU (test code = 6584400983) 170 mg/dL 70-110 H Lab Interpretation (test code = Abnormal 72799-5) [facility] GLUCOSE (AUTOMATED)2022-05-10 13:20:35 Test Item Value Reference Range Interpretation Comments POCT GLU (test code = 0384672827) 170 mg/dL 70-110 H Lab Interpretation (test code = Abnormal 01228-1) [facility] GLUCOSE (AUTOMATED)2022-05-10 13:20:35 Test Item Value Reference Range Interpretation Comments POCT GLU (test code = 8204943040) 170 mg/dL 70-110 H Lab Interpretation (test code = Abnormal 88434-9) [facility] [id number] 12:57:38 Test Item Value Reference Range Interpretation Comments IRON (test code = 2492157639) 128 ug/dL 50-160 TIBC (test code = 8833795270) 239 ug/dL 250-410 L % FE SAT (test code = 2819185484) 54 % 20-50 H Lab Interpretation (test code = Abnormal 03514-8) [facility] [id number] 12:57:38 Test Item Value Reference Range Interpretation Comments IRON (test code = 2499924230) 128 ug/dL 50-160 TIBC (test code = 9371475360) 239 ug/dL 250-410 L % FE SAT (test code = 4996568401) 54 % 20-50 H Lab Interpretation (test code = Abnormal 92118-6) [facility] [id number] 12:57:38 Test Item Value Reference Range Interpretation Comments IRON (test code = 1367524666) 128 ug/dL 50-160 TIBC (test code = 7756706767) 239 ug/dL 250-410 L % FE SAT (test code = 7360432849) 54 % 20-50 H Lab Interpretation (test code = Abnormal 24933-9) [facility] Packed RBC (in units)2022-05-10 12:52:36 Test Item Value Reference Range Interpretation Comments Cross Match Result Compatible (test code = 4409) ISBT Blood Type Code (test code = 063429) Unit Blood Type (test A Neg code = 4410) Unit Number (test [id number] code = 4411) Blood Expiration Date & Time (test code = 036985) Status Information Issued (test code = 4412) Product Red Blood Cells Identification (test code = 4413) Product Code (test V6344N84 Performed at [facility] code = 4414) Laboratory Services [facility] Blood [address] [address]Yypr Free: [phone] A No. [id number] [facility] Packed RBC (in units)2022-05-10 12:52:36 Test Item Value Reference Range Interpretation Comments Cross Match Result Compatible (test code = 4409) ISBT Blood Type Code (test code = 356780) Unit Blood Type (test A Neg code = 4410) Unit Number (test [id number] code = 4411) Blood Expiration Date & Time (test code = 152633) Status Information Issued (test code = 4412) Product Red Blood Cells Identification (test code = 4413) Product Code (test P6827S45 Performed at [facility] code = 4414) Laboratory Services - [facility] Blood [address] [place] [address]Ffuu Free: [phone] A No. [id number] [facility] Packed RBC (in units)2022-05-10 12:52:36 Test Item Value Reference Range Interpretation Comments Cross Match Result Compatible (test code = 4409) ISBT Blood Type Code (test code = 711062) Unit Blood Type (test A Neg code = 4410) Unit Number (test [id number] code = 4411) Blood Expiration Date & Time (test code = 410730) Status Information Issued (test code = 4412) Product Red Blood Cells Identification (test code = 4413) Product Code (test H9316C76 Performed at [facility] code = 4414) Laboratory Services - [facility] Blood [address] [address]Njdk Free: [phone] A No. [id number] [facility] [id number] 12:50:21 Test Item Value Reference Interpretation Comments Range TROPONIN I (test 2.800 ng/mL See_Comment H [Automated code = 6504918543) message] The system which generated this result [...] biotin. Lab Interpretation Abnormal (test code = 46578-4) [facility] [id number] 12:50:21 Test Item Value Reference Interpretation Comments Range TROPONIN I (test 2.800 ng/mL See_Comment H [Automated code = 8456622772) message] The system which generated this result [...] biotin. Lab Interpretation Abnormal (test code = 07252-0) [facility] [id number] 12:50:21 Test Item Value Reference Interpretation Comments Range TROPONIN I (test 2.800 ng/mL See_Comment H [Automated code = 7514218415) message] The system which generated this result [...] biotin. Lab Interpretation Abnormal (test code = 13370-1) [facility] [place] - ONCE [id number] 12:13:43 Test Item Value Reference Range Interpretation Comments ABO & RH (test code A Positive Performe d at [facility] = 20) Laboratory Serv [facility] Blood Bank[address] [place] [address]Pfif Free: [phone] A No. [id number] IAT (test code = Negative Performed a t [facility] 1185) Laboratory [facility] Blood [place] [address]14[address]Toll Free: [phone] A No. [id number] [facility] [place] - ONCE [id number] 12:13:43 Test Item Value Reference Range Interpretation Comments ABO & RH (test code A Positive Performe d at [facility] = 20) Laboratory [facility] Blood [place] [address]14[address]Toll Free: [phone] A No. [id number] IAT (test code = Negative Performed a t [facility] 1185) Laboratory [facility] Blood [place] [address]Toll Free: [phone] A No. [id number] [facility] - [place]CE [id number] 12:13:43 Test Item Value Reference Range Interpretation Comments ABO & RH (test code A Positive Performe d at [facility] = 20) Laboratory [facility] Blood [place] [address]Toll Free: [phone] A No. [id number] IAT (test code = Negative Performed a t [facility] 1185) Laboratory [facility] Blood [place] [address]Toll Free: [phone] A No. [id number] [facility] METABOLIC PANEL (NA, K, CL, CO2, GLUCOSE, BUN, CREATININE, CA)2022-05-10 10:49:51 Test Item Value Reference Range Interpretation Comments NA (test code = 136 mmol/L 135-145 7291879285) K (test code = 5.2 mmol/L 3.5-5.0 H Slight 1903821635) hemolysis CL (test code = 99 mmol/L 98-108 7218605457) CO2 TOTAL (test code 26 mmol/L 23-31 = 1382467062) AGAP (test code = 2-16 0301168201) BUN (test code = 74 mg/dL 7-23 H Slight 8411393757) hemolysis GLUCOSE (test code = 149 mg/dL 70-110 H 3269747214) CREATININE (test code 8.02 mg/dL 0.60-1.25 H = 7900968941) CALCIUM (test code = 8.5 mg/dL 8.6-10.6 L 7832821469) eGFR (test code = mL/min/1.73m2 1967772609) JINNY (test code = JINNY) Association of [...] tests). Lab Interpretation Abnormal (test code = 08131-8) [facility] METABOLIC PANEL (NA, K, CL, CO2, GLUCOSE, BUN, CREATININE, CA)2022-05-10 10:49:51 Test Item Value Reference Range Interpretation Comments NA (test code = 136 mmol/L 135-145 7586540880) K (test code = 5.2 mmol/L 3.5-5.0 H Slight 6592345185) hemolysis CL (test code = 99 mmol/L 98-108 4380336644) CO2 TOTAL (test code 26 mmol/L 23-31 = 7090778642) AGAP (test code = 2-16 0970332579) BUN (test code = 74 mg/dL 7-23 H Slight 9823252063) hemolysis GLUCOSE (test code = 149 mg/dL 70-110 H 4959290540) CREATININE (test code 8.02 mg/dL 0.60-1.25 H = 2953146814) CALCIUM (test code = 8.5 mg/dL 8.6-10.6 L 9272066688) eGFR (test code = mL/min/1.73m2 7980945287) JINNY (test code = JINNY) Association of [...] tests). Lab Interpretation Abnormal (test code = 66944-1) [facility] METABOLIC PANEL (NA, K, CL, CO2, GLUCOSE, BUN, CREATININE, CA)2022-05-10 10:49:51 Test Item Value Reference Range Interpretation Comments NA (test code = 136 mmol/L 135-145 8079893462) K (test code = 5.2 mmol/L 3.5-5.0 H Slight 1655888249) hemolysis CL (test code = 99 mmol/L 98-108 5680347052) CO2 TOTAL (test code 26 mmol/L 23-31 = 7175599007) AGAP (test code = 2-16 6377912662) BUN (test code = 74 mg/dL 7-23 H Slight 1206381576) hemolysis GLUCOSE (test code = 149 mg/dL 70-110 H 8331347531) CREATININE (test code 8.02 mg/dL 0.60-1.25 H = 6717194833) CALCIUM (test code = 8.5 mg/dL 8.6-10.6 L 9455061632) eGFR (test code = mL/min/1.73m2 6373606287) JINNY (test code = JINNY) Association of [...] tests). Lab Interpretation Abnormal (test code = 09811-7) [facility] [id number] 10:31:14 Test Item Value Reference Range Interpretation Comments WBC (test code = 6690-2) See_Comment [A utomated message] The system BISON generated this result transmit corie reference range : 4.20 - 10.70 10*3/?L. The reference range was not used to interpret this result as normal/abnormal . RBC (test code = 789-8) See_Comment L [Au tomated message] The system BISON generated this result transmit corie reference range [...] 777-3) See_Comment [Au tomated message] The system [employer] generated this result transmit corie reference range : 150 - 328 10*3/?L. The reference range was not used to interpret this result as normal/abnormal . MPV (test code = 10.1 fL 9.8-13.0 32075-6) RDW-CV (test code = 20.4 % 12.1-15.4 H 788-0) RDW-SD (test code = 57.1 fL 38.5-51.6 H 73755-7) NRBC x10^3 (test code = See_Comment [Au tomated message] 4967088642) The system BISON generated this result transmit corie reference range : 10*3/?L. The reference range was not used to interpret this result as normal/abnormal . NRBC/100 WBC (test code See_Comment [Au tomated message] = 3948716069) The system [employer] generated this result transmit corie reference range : 0.0 - 10.0 /100 WBC s. The reference r mera was not used to interpret this result as normal/abnormal . IPF % (test code = 2927755929) Lab Interpretation (test Abnormal code = 55686-3) [facility] [id number] 10:31:14 Test Item Value Reference Range Interpretation Comments WBC (test code = 6690-2) See_Comment [A utomated message] The system [employer]ISON generated this result transmit corie reference range : 4.20 - 10.70 10*3/?L. The reference range was not used to interpret this result as normal/abnormal . RBC (test code = 789-8) See_Comment L [Au tomated message] The system [employer] generated this result transmit corie reference range [...] 777-3) See_Comment [Au tomated message] The system [employer] generated this result transmit corie reference range : 150 - 328 10*3/?L. The reference range was not used to interpret this result as normal/abnormal . MPV (test code = 10.1 fL 9.8-13.0 05774-1) RDW-CV (test code = 20.4 % 12.1-15.4 H 788-0) RDW-SD (test code = 57.1 fL 38.5-51.6 H 29363-6) NRBC x10^3 (test code = See_Comment [Au tomated message] 1093620548) The system [employer] generated this result transmit corie reference range : 10*3/?L. The reference range was not used to interpret this result as normal/abnormal . NRBC/100 WBC (test code See_Comment [Au tomated message] = 5072286157) The [facility] generated this result transmit corie reference range : 0.0 - 10.0 /100 WBC s. The reference r mera was not used to interpret this result as normal/abnormal . IPF % (test code = 1382039873) Lab Interpretation (test Abnormal code = 14739-5) [facility] [id number] 10:31:14 Test Item Value Reference Range Interpretation Comments WBC (test code = 6690-2) See_Comment [A utomated message] The system [employer]ISON generated this result transmit corie reference range : 4.20 - 10.70 10*3/?L. The reference range was not used to interpret this result as normal/abnormal . RBC (test code = 789-8) See_Comment L [Au tomated message] The system [employer] generated this result transmit corie reference range [...] 777-3) See_Comment [Au tomated message] The system [employer] generated this result transmit corie reference range : 150 - 328 10*3/?L. The reference range was not used to interpret this result as normal/abnormal . MPV (test code = 10.1 fL 9.8-13.0 75103-8) RDW-CV (test code = 20.4 % 12.1-15.4 H 788-0) RDW-SD (test code = 57.1 fL 38.5-51.6 H 32659-2) NRBC x10^3 (test code = See_Comment [Au tomated message] 6977029543) The system [employer]ISON generated this result transmit corie reference range : 10*3/?L. The reference range was not used to interpret this result as normal/abnormal . NRBC/100 WBC (test code See_Comment [Au tomated message] = 8540996361) The system [employer] ch generated this result transmit corie reference range : 0.0 - 10.0 /100 WBC s. The reference r mera was not used to interpret this result as normal/abnormal . IPF % (test code = 7672227331) Lab Interpretation (test Abnormal code = 94664-6) [facility] GLUCOSE (AUTOMATED)2022-05-10 03:53:52 Test Item Value Reference Range Interpretation Comments POCT GLU (test code = 6948573444) 184 mg/dL 70-110 H Lab Interpretation (test code = Abnormal 88908-2) [facility] GLUCOSE (AUTOMATED)2022-05-10 03:53:52 Test Item Value Reference Range Interpretation Comments POCT GLU (test code = 8278475611) 184 mg/dL 70-110 H Lab Interpretation (test code = Abnormal 53330-2) [facility] GLUCOSE (AUTOMATED)2022-05-10 03:53:52 Test Item Value Reference Range Interpretation Comments POCT GLU (test code = 8634578430) 184 mg/dL 70-110 H Lab Interpretation (test code = Abnormal 39391-5) [facility] - ONCE [id number] 02:58:21 Test Item Value Reference Range Interpretation Comments IAT (test code = Negative Performed a t [facility] 1185) Laboratory Serv [facility] Blood [address] [place], [place] [address]Toll Free: [phone] 266CLIA No. [id number] [facility] [place] - ONCE [id number] 02:58:21 Test Item Value Reference Range Interpretation Comments IAT (test code = Negative Performed a t [facility] 1185) Laboratory Serv [facility] Blood [address] [place] [address] 2Toll Free: [phone] 266CLIA No. [id number] [facility] - ONCE [id number] 02:58:21 Test Item Value Reference Range Interpretation Comments IAT (test code = Negative Performed a t [facility] 1185) Laboratory Serv [facility] Blood [address] [place] [address] 2Toll Free: [phone] 266CLIA No. [id number] [facility] INVESTIGATION [id number] 02:23:33 Test Item Value Reference Range Interpretation Comments ABO & RH (test A Positive Weak D posPer formed at code = 20) [facility] Blood Ban [place] [address] 2Toll Free: [phone] 266CLIA No. [id number] [facility] INVESTIGATION [id number] 02:23:33 Test Item Value Reference Range Interpretation Comments ABO & RH (test A Positive Weak D posPer formed at code = 20) [facility] Blood Ban [place] [address] 2Toll Free: [phone] 266CLIA No. [id number] [facility] INVESTIGATION [id number] 02:23:33 Test Item Value Reference Range Interpretation Comments ABO & RH (test A Positive Weak D posPer formed at code = 20) [facility] Blood Ban [place] [address] 2Toll Free: [phone] 266CLIA No. [id number] [facility] INVESTIGATION [id number] 02:08:44 Test Item Value Reference Range Interpretation Comments ABO & RH (test A Positive Weak D posPer formed at code = 20) [facility] Blood Ban [place] [address] 2Toll Free: [phone] 266CLIA No. [id number] [facility] INVESTIGATION [id number] 02:08:44 Test Item Value Reference Range Interpretation Comments ABO & RH (test A Positive Weak D posPer formed at code = 20) [facility] Laboratory Services [facility] Blood Ban [place] [address] 2Toll Free: [phone] 266CLIA No. [id number] [facility] [id number] 02:08:44 Test Item Value Reference Range Interpretation Comments ABO & RH (test A Positive Weak D posPer formed at code = 20) [facility] Laboratory Services - [facility] Blood Ban [place] [address] 2Toll Free: [phone] 266CLIA No. [id number] [facility] Packed RBC (in units)2022-05-10 01:43:06 Test Item Value Reference Range Interpretation Comments Unit Blood Type (test O Pos code = 4410) ISBT Blood Type Code (test code = 599308) Unit Number (test code [id number] = 4411) Blood Expiration Date & Time (test code = 889225) Status Information Issued (test code = 4412) Product Identification Red Blood (test code = 4413) Cells Product Code (test B5480V39 Performed at [facility] code = 4414) Laboratory Services [facility] Blood [address] [place], [place] [address]Toll Free: [phone] A No. [id number] [facility] Packed RBC (in units)2022-05-10 01:43:06 Test Item Value Reference Range Interpretation Comments Unit Blood Type (test O Pos code = 4410) ISBT Blood Type Code (test code = 640388) Unit Number (test code [id number] = 4411) Blood Expiration Date & Time (test code = 260716) Status Information Issued (test code = 4412) Product Identification Red Blood (test code = 4413) Cells Product Code (test L4703L99 Performed at [facility] code = 4414) Laboratory Services [facility] Blood [address] [place], [place] [address]Toll Free: [phone] A No. [id number] [facility] Packed RBC (in units)2022-05-10 01:43:06 Test Item Value Reference Range Interpretation Comments Unit Blood Type (test O Pos code = 4410) ISBT Blood Type Code (test code = 246205) Unit Number (test code [id number] = 4411) Blood Expiration Date & Time (test code = 447839) Status Information Issued (test code = 4412) Product Identification Red Blood (test code = 4413) Cells Product Code (test J9236V08 Performed at [facility] code = 4414) Laboratory Services - [facility] Blood [address] [place] [address]Cawj Free: [phone] A No. [id number] [facility] [id number] 23:42:40 Test Item Value Reference Range Interpretation Comments NT-proBNP (test code 54160 pg/mL See_Comment H [Autom ated = 9647710551) message] The system which generated this result transmitted reference range : <=125. The reference range was not used to interpret this result as normal/abnormal . JINNY (test code = JINNY) Biotin has been reported to cause a negative bias, interpret results relative to patient's use of biotin. Lab Interpretation Abnormal (test code = 74958-4) [facility] [id number] 23:42:40 Test Item Value Reference Range Interpretation Comments NT-proBNP (test code 48791 pg/mL See_Comment H [Autom ated = 6777477811) message] The system which generated this result transmitted reference range : <=125. The reference range was not used to interpret this result as normal/abnormal . JINNY (test code = JINNY) Biotin has been reported to cause a negative bias, interpret results relative to patient's use of biotin. Lab Interpretation Abnormal (test code = 68335-8) [id number] 23:42:40 Test Item Value Reference Range Interpretation Comments NT-proBNP (test code 64407 pg/mL See_Comment H [Autom ated = 7356672522) message] The system which generated this result transmitted reference range : <=125. The reference range was not used to interpret this result as normal/abnormal . JINNY (test code = JINNY) Biotin has been reported to cause a negative bias, interpret results relative to patient's use of biotin. Lab Interpretation Abnormal (test code = 91087-2) [facility] [id number] 23:23:38 Test Item Value Reference Interpretation Comments Range TROPONIN I (test 0.061 ng/mL See_Comment H [Automated code = 5384638017) message] The system which generated this result [...] biotin. Lab Interpretation Abnormal (test code = 37123-4) [facility] [id number] 23:23:38 Test Item Value Reference Interpretation Comments Range TROPONIN I (test 0.061 ng/mL See_Comment H [Automated code = 0094219567) message] The system which generated this result [...] biotin. Lab Interpretation Abnormal (test code = 47371-3) [facility] [id number] 23:23:38 Test Item Value Reference Interpretation Comments Range TROPONIN I (test 0.061 ng/mL See_Comment H [Automated code = 6069013872) message] The system which generated this result [...] biotin. Lab Interpretation Abnormal (test code = 81621-2) [facility] METABOLIC PANEL (80007)2022-05-09 23:13:42 Test Item Value Reference Range Interpretation Comments NA (test code = 135 mmol/L 135-145 2941061138) K (test code = 4.9 mmol/L 3.5-5.0 8945242727) CL (test code = 95 mmol/L 98-108 L 5488355286) CO2 TOTAL (test code = 25 mmol/L 23-31 4275015802) AGAP (test code = 2-16 1040947804) BUN (test code = 63 mg/dL 7-23 H 2829708811) GLUCOSE (test code = 303 mg/dL 70-110 H 8278366001) CREATININE (test code = 6.53 mg/dL 0.60-1.25 H 0518303863) TOTAL BILI (test code = 0.1 mg/dL 0.1-1.1 8954991095) CALCIUM (test code = 8.9 mg/dL 8.6-10.6 4948918857) T PROTEIN (test code = 6.4 g/dL 6.3-8.2 6796009723) ALBUMIN (test code = 3.7 g/dL 3.5-5.0 5372739920) ALK PHOS (test code = 48 U/L 34-122 6836852714) ALTv (test code = 9 U/L 5-50 2-6) AST(SGOT) (test code = 14 U/L 13-40 4638687854) eGFR (test code = mL/min/1.73m2 4213096540) JINNY (test code = JINNY) Association of [...] tests). Lab Interpretation Abnormal (test code = 14542-0) [facility]. METABOLIC PANEL (76467)2022-05-09 23:13:42 Test Item Value Reference Range Interpretation Comments NA (test code = 135 mmol/L 135-145 4600069071) K (test code = 4.9 mmol/L 3.5-5.0 3776705546) CL (test code = 95 mmol/L 98-108 L 9509238168) CO2 TOTAL (test code = 25 mmol/L 23-31 0125434702) AGAP (test code = 2-16 9994860562) BUN (test code = 63 mg/dL 7-23 H 6854144238) GLUCOSE (test code = 303 mg/dL 70-110 H 5790390945) CREATININE (test code = 6.53 mg/dL 0.60-1.25 H 3559738702) TOTAL BILI (test code = 0.1 mg/dL 0.1-1.6 5783899425) CALCIUM (test code = 8.9 mg/dL 8.6-10.6 9657967993) T PROTEIN (test code = 6.4 g/dL 6.3-8.2 3192341567) ALBUMIN (test code = 3.7 g/dL 3.5-5.0 6779765139) ALK PHOS (test code = 48 U/L 34-122 1524512666) ALTv (test code = 9 U/L 5-50 1742-6) AST(SGOT) (test code = 14 U/L 13-40 9917472929) eGFR (test code = mL/min/1.73m2 9005398019) JINNY (test code = JINNY) Association of [...] tests). Lab Interpretation Abnormal (test code = 27503-8) [facility]. METABOLIC PANEL (92172)2022-05-09 23:13:42 Test Item Value Reference Range Interpretation Comments NA (test code = 135 mmol/L 135-145 4792250679) K (test code = 4.9 mmol/L 3.5-5.0 7330808008) CL (test code = 95 mmol/L 98-108 L 3790389778) CO2 TOTAL (test code = 25 mmol/L 23-31 1053807737) AGAP (test code = 2-16 5369002639) BUN (test code = 63 mg/dL 7-23 H 3810462360) GLUCOSE (test code = 303 mg/dL 70-110 H 8574075504) CREATININE (test code = 6.53 mg/dL 0.60-1.25 H 1915586394) TOTAL BILI (test code = 0.1 mg/dL 0.1-1.2 8876587034) CALCIUM (test code = 8.9 mg/dL 8.6-10.6 5626942051) T PROTEIN (test code = 6.4 g/dL 6.3-8.2 9630835760) ALBUMIN (test code = 3.7 g/dL 3.5-5.0 6933778755) ALK PHOS (test code = 48 U/L 34-122 0267905271) ALTv (test code = 9 U/L 5-50 1742-6) AST(SGOT) (test code = 14 U/L 13-40 0833125173) eGFR (test code = mL/min/1.73m2 9844922442) JINNY (test code = JINNY) Association of [...] tests). Lab Interpretation Abnormal (test code = 38193-0) [facility] [id number] 23:11:21 Test Item Value Reference Range Interpretation Comments APTT Patient (test See_Comment [Automat ed code = 3173-2) message] The system which generated this result transmitted reference range : 23 - 38 Seconds . The reference range was not used to interpr et this result as normal/abnormal . JINNY (test code = JINNY) The [facility] patient population mean normal value for aPTT is 30 seconds. Lab Interpretation Normal (test code = 39930-7) [facility] [id number] 23:11:21 Test Item Value Reference Range Interpretation Comments APTT Patient (test See_Comment [Automat ed code = 3173-2) message] The system which generated this result transmitted reference range : 23 - 38 Seconds . The reference range was not used to interpr et this result as normal/abnormal . JINNY (test code = JINNY) The [facility] patient population mean normal value for aPTT is 30 seconds. Lab Interpretation Normal (test code = 22918-2) [facility] [id number] 23:11:21 Test Item Value Reference Range Interpretation Comments APTT Patient (test See_Comment [Automat ed code = 3173-2) message] The system which generated this result transmitted reference range : 23 - 38 Seconds . The reference range was not used to interpr et this result as normal/abnormal . JINNY (test code = JINNY) The [facility] patient population mean normal value for aPTT is 30 seconds. Lab Interpretation Normal (test code = 83260-2) [facility] [id number] 23:10:46 Test Item Value Reference Range Interpretation [...] (test code = 57.2 fL 38.5-51.6 H 34940-6) RDW-CV (test code = 21.3 % 12.1-15.4 H 788-0) PLT (test code = See_Comment [Automated 777-3) message] The sy stem which generated this result transmitted reference range : 150 - 328 10*3/ ?L. The reference r mera was not used to interpret this result as normal/abnormal . MPV (test code = 9.4 fL 9.8-13.0 L 81560-4) NRBC/100 WBC (test See_Comment [Automat ed code = 5865443034) message] The system which generated this result transmitted reference range : 0.0 - 10.0 /100 WBCs. The refer ence range was not u sed to interpret th is result as normal/abnormal . NRBC x10^3 (test code See_Comment [Auto mated = 3956750458) message] The s ystem which generated this result transmitted reference range : 10*3/?L. The reference range was not used to interpret this result as normal/abnormal . GRAN MAT (NEUT) % 70.7 % (test code = 770-8) IMM GRAN % (test code 0.60 % = 6075880808) LYMPH % (test code = 18.2 % 736-9) MONO % (test code = 6.9 % 5905-5) EOS % (test code = 2.9 % 713-8) BASO % (test code = 0.7 % 706-2) GRAN MAT x10^3(ANC) 8.99 10*3/uL 1.99-6.95 H (test code = 6627943314) IMM GRAN x10^3 (test 0.07 10*3/uL 0.00-0.06 H code = 9065996996) LYMPH x10^3 (test code 2.32 10*3/uL 1.09-3.23 = 731-0) MONO x10^3 (test code 0.88 10*3/uL 0.36-1.02 = 742-7) EOS x10^3 (test code = 0.37 10*3/uL 0.06-0.53 711-2) BASO x10^3 (test code 0.09 10*3/uL 0.01-0.09 = 704-7) Lab Interpretation Abnormal (test code = 17232-9) [facility] WITH [id number] 23:10:46 Test Item Value Reference Range Interpretation Comments WBC (test code = See_Comment H [Automated 3690-2) message] The sy stem which generated this [...] (test code = 57.2 fL 38.5-51.6 H 24037-0) RDW-CV (test code = 21.3 % 12.1-15.4 H 788-0) PLT (test code = See_Comment [Automated 777-3) message] The sy stem which generated this result transmitted reference range : 150 - 328 10*3/ ?L. The reference r mera was not used to interpret this result as normal/abnormal . MPV (test code = 9.4 fL 9.8-13.0 L 96311-2) NRBC/100 WBC (test See_Comment [Automat ed code = 9292608925) message] The system which generated this result transmitted reference range : 0.0 - 10.0 /100 WBCs. The refer ence range was not u sed to interpret th is result as normal/abnormal . NRBC x10^3 (test code See_Comment [Auto mated = 1910797844) message] The s ystem which generated this result transmitted reference range : 10*3/?L. The reference range was not used to interpret this result as normal/abnormal . GRAN MAT (NEUT) % 70.7 % (test code = 770-8) IMM GRAN % (test code 0.60 % = 6036222061) LYMPH % (test code = 18.2 % 736-9) MONO % (test code = 6.9 % 5905-5) EOS % (test code = 2.9 % 713-8) BASO % (test code = 0.7 % 706-2) GRAN MAT x10^3(ANC) 8.99 10*3/uL 1.99-6.95 H (test code = 9112473611) IMM GRAN x10^3 (test 0.07 10*3/uL 0.00-0.06 H code = 4246561895) LYMPH x10^3 (test code 2.32 10*3/uL 1.09-3.23 = 731-0) MONO x10^3 (test code 0.88 10*3/uL 0.36-1.02 = 742-7) EOS x10^3 (test code = 0.37 10*3/uL 0.06-0.53 711-2) BASO x10^3 (test code 0.09 10*3/uL 0.01-0.09 = 704-7) Lab Interpretation Abnormal (test code = 27683-6) [facility] WITH [id number] 23:10:46 Test Item Value Reference Range Interpretation [...] (test code = 57.2 fL 38.5-51.6 H 21046-6) RDW-CV (test code = 21.3 % 12.1-15.4 H 788-0) PLT (test code = See_Comment [Automated 777-3) message] The sy stem which generated this result transmitted reference range : 150 - 328 10*3/ ?L. The reference r mera was not used to interpret this result as normal/abnormal . MPV (test code = 9.4 fL 9.8-13.0 L 41548-6) NRBC/100 WBC (test See_Comment [Automat ed code = 3260733362) message] The system which generated this result transmitted reference range : 0.0 - 10.0 /100 WBCs. The refer ence range was not u sed to interpret th is result as normal/abnormal . NRBC x10^3 (test code See_Comment [Auto mated = 8153873084) message] The s ystem which generated this result transmitted reference range : 10*3/?L. The reference range was not used to interpret this result as normal/abnormal . GRAN MAT (NEUT) % 70.7 % (test code = 770-8) IMM GRAN % (test code 0.60 % = 7019482787) LYMPH % (test code = 18.2 % 736-9) MONO % (test code = 6.9 % 5905-5) EOS % (test code = 2.9 % 713-8) BASO % (test code = 0.7 % 706-2) GRAN MAT x10^3(ANC) 8.99 10*3/uL 1.99-6.95 H (test code = 7201086261) IMM GRAN x10^3 (test 0.07 10*3/uL 0.00-0.06 H code = 1306044463) LYMPH x10^3 (test code 2.32 10*3/uL 1.09-3.23 = 731-0) MONO x10^3 (test code 0.88 10*3/uL 0.36-1.02 = 742-7) EOS x10^3 (test code = 0.37 10*3/uL 0.06-0.53 711-2) BASO x10^3 (test code 0.09 10*3/uL 0.01-0.09 = 704-7) Lab Interpretation Abnormal (test code = 70725-8) [facility] (PTT[facility] / [id number] 23:09:00 Test Item Value Reference Range Interpretation Comments PROTIME PATIENT (test See_Comment [Auto mated message] code = 5964-2) The system [employer] generated this result transmitted ref erence range: 12.0 - 1 4.7 Seconds. The re ference range was not u sed to interpret this result as normal/abnor mal. INR (test code = 6301-6) Nor mal INR <1.1; Warfarin Therap eutic range 2.0 to 3. 0 or 2.5 to 3.5, dep ending upon the indica tions. Lab Interpretation (test Normal code = 17358-2) [facility] (PTT[facility] / [id number] 23:09:00 Test Item Value Reference Range Interpretation Comments PROTIME PATIENT (test See_Comment [Auto mated message] code = 5964-2) The system [employer] generated this result transmitted ref erence range: 12.0 - 1 4.7 Seconds. The re ference range was not u sed to interpret this result as normal/abnor mal. INR (test code = 6301-6) Nor mal INR <1.1; Warfarin Therap eutic range 2.0 to 3. 0 or 2.5 to 3.5, dep ending upon the indica tions. Lab Interpretation (test Normal code = 62466-5) [facility] (PTT) / [id number] 23:09:00 Test Item Value Reference Range Interpretation Comments PROTIME PATIENT (test See_Comment [Auto mated message] code = 5964-2) The system [employer] generated this result transmitted ref erence range: 12.0 - 1 4.7 Seconds. The re ference range was not u sed to interpret this result as normal/abnor mal. INR (test code = 6301-6) Nor mal INR <1.1; Warfarin Therap eutic range 2.0 to 3. 0 or 2.5 to 3.5, dep ending upon the indica tions. Lab Interpretation (test Normal code = 45748-9) [facility] [id number] 16:26:00 Test Item Value Reference Range Interpretation Comments Glucose Fingerstick 278 mg/dL 70-115 SPONGE MAKER Sneha (test code = WGLUC) Hilario Complete Blood Count Auto [id number] 09:28:00 Test Item Value Reference Range Interpretation [...] code = NRBCP) 0 % Comprehensive Metabolic [id number] 09:28:00 Test Item Value Reference Range Interpretation [...] code 94 U/L 46-116 N = ALP) [id number] 09:28:00 Test Item Value Reference Range Interpretation Comments Phosphorous (test code = PHOS) 10.6 mg/dL 2.4-5.9 H [id number] 09:28:00 Test Item Value Reference Range Interpretation Comments Magnesium (test code = MG) 2.3 mg/dL 1.6-2.6 N Troponin [id number] 09:28:00 Test Item Value Reference Range Interpretation Comments Troponin I (test 2455.10 pg/mL 0.00-45.00 HH Critical v alue called code = TROP) to Chito emanuel ndread back by on: 04/18 at 0958by KB05.Interpret jose david Comments:* The 99th percentile URL [...] 99th percentile in serialmeasureme nts. Prothrombin Time [id number] 09:28:00 Test Item Value Reference Range Interpretation Comments Prothrombin Time (test code = 11.1 Seconds 9.8-13.4 N PT) INR (test code = INR) 1.0 ratio 0.6-1.2 N Partial Thromboplastin [id number] 09:28:00 Test Item Value Reference Range Interpretation Comments Partial Thromboplastin Time 31.80 Seconds 24.39-37.25 N (test code = PTT) Glucose [id number] 23:41:00 Test Item Value Reference Range Interpretation Comments Glucose Fingerstick 254 mg/dL 70-115 SPONGE MAKER Sarapnine (test code = WGLUC) Emenaini Glucose [id number] 18:25:00 Test Item Value Reference Range Interpretation Comments Glucose Fingerstick 318 mg/dL 70-115 SPONGE MAKER Krystal (test code = WGLUC) Juan z Glucose Dqmsigkohlc1884-39-68 12:27:00 Test Item Value Reference Range Interpretation Comments Glucose Fingerstick 231 mg/dL 70-115 SPONGE MAKER Sneha (test code = WGLUC) Hilario SOFIA Test for H. [id number] 11:02:00 Test Item Value Reference Range Interpretation Comments SOFIA-test (test code = Urease negative. SOFIA-test) H.Pylori not detected in sample submitted. Media Verification (test SOFIA test media pass code = Media Verification) Complete Blood Count Auto [id number] 03:15:00 Test Item Value Reference Range Interpretation [...] (test code = NRBCP) 0.3 % Hepatic [id number] 03:15:00 Test Item Value Reference Range Interpretation [...] 83 U/L 46-116 N ALP) Basic Metabolic [id number] 03:15:00 Test Item Value Reference Range Interpretation [...] code = CA) 7.9 mg/dL 8.3-10.6 L [id number] 03:15:00 Test Item Value Reference Range Interpretation Comments Phosphorous (test code = PHOS) 4.9 mg/dL 2.4-5.9 N [id number] 03:15:00 Test Item Value Reference Range Interpretation Comments Magnesium (test code = MG) 2.1 mg/dL 1.6-2.6 N Troponin [id number] 03:15:00 Test Item Value Reference Range Interpretation [...] 99th percentile in serialmeasureme nts. Prothrombin Time [id number] 03:15:00 Test Item Value Reference Range Interpretation Comments Prothrombin Time (test code = 11.9 Seconds 9.8-13.4 N PT) INR (test code = INR) 1.0 ratio 0.6-1.2 N Partial Thromboplastin [id number] 03:15:00 Test Item Value Reference Range Interpretation Comments Partial Thromboplastin Time 30.00 Seconds 24.39-37.25 N (test code = PTT) B-Type Natriuretic [id number] 03:15:00 Test Item Value Reference Range Interpretation Comments B-Type Natriuretic Peptide (test 1107.3 pg/mL 0.0-99.9 H code = BNP) Glucose [id number] 23:03:00 Test Item Value Reference Range Interpretation Comments Glucose Fingerstick 131 mg/dL 70-115 SPONGE MAKER Sarapnine (test code = WGLUC) Emenaini [id number] 11:40:00 Test Item Value Reference Range Interpretation Comments Phosphorous (test code = PHOS) 6.1 mg/dL 2.4-5.9 H [id number] 11:40:00 Test Item Value Reference Range Interpretation Comments Magnesium (test code = MG) 2.3 mg/dL 1.6-2.6 N Troponin [id number] 11:40:00 Test Item Value Reference Range Interpretation [...] 99th percentile in serialmeasureme nts. B-Type Natriuretic [id number] 11:40:00 Test Item Value Reference Range Interpretation Comments B-Type Natriuretic Peptide (test 1299.5 pg/mL 0.0-99.9 H code = BNP) Complete Blood Count Auto [id number] 11:40:00 Test Item Value Reference Range Interpretation Comments White Blood Count 12.3 x10 3/uL 4.4-10.5 H (test code = WBCT) Red Blood Count (test 2.02 x10 6/uL 4.10-5.70 L code = RBC) Hemoglobin (test code 5.6 g/dL 13.4-17.4 LL Critic al value = HGBT) called to minnie malin back by [Graciela BARNETT RN] on: 12/01/20 at 1234by KP150. Hematocrit (test [...] (test code = 0.5 % NRBCP) Smear [id number] 11:40:00 Test Item Value Reference Range Interpretation Comments Platelet Estimate (test code = Normal Normal PLTEST) RBC Morphology (test code = RM) Abnormal Normal Hypochromasia (test code = HYPO) 3+ None Seen A Prothrombin Time [id number] 11:40:00 Test Item Value Reference Range Interpretation Comments Prothrombin Time (test code = 11.4 Seconds 9.8-13.4 N PT) INR (test code = INR) 1.0 ratio 0.6-1.2 N Partial Thromboplastin [id number] 11:40:00 Test Item Value Reference Range Interpretation Comments Partial Thromboplastin Time 30.50 Seconds 24.39-37.25 N (test code = PTT) Lactic [id number] 11:40:00 Test Item Value Reference Range Interpretation Comments Lactic Acid (test code = LACTIC) 0.8 mmol/L 0.5-2.0 N Hepatic [id number] 11:40:00 Test Item Value Reference Range Interpretation [...] 84 U/L 46-116 N ALP) Basic Metabolic [id number] 11:40:00 Test Item Value Reference Range Interpretation [...] code = CA) 8.2 mg/dL 8.3-10.6 L Notes Date/Time Note Provider Source 2023-06-23 Formatting of this note is different fro m the original. Diya Mathew [facility] 13:10:02-00:00 Attempted to contact patient regarding kidney transplant referral, left VM requesting a call back. Referral received via: Phone How did the patient hear about our program: re i nquire Which organ are you referring the patient for tr ansplant or surgery? Kidney Does the patient have HIV/AIDS: no Does the patient have cancer: no Does the patient have any potential living donor s: no Patient Height: 6'2" Patient Weight: 233.69lbs Referring MD: Everton Butcher Specialty: Regional Commercial Sales Manager (Kidney) poultry tender: Dr. Dunlap Currently on dialysis: yes [facility]- HD-MWF-12/17/16 started d ialysis Address: [facility] [place] [address]
[2023-07-14] MEDS ORDERED: HYDROCODONE/APAP 10/325 TAB ONE (13:01)
--- NOTE | 2023-07-14 14:35 | RAD REPORT ---
EXAM DESCRIPTION: RAD - Knee Right 3 View - 07/14/2023 2:19 pm CLINICAL HISTORY: PAIN COMPARISON: <Comparisons> FINDINGS: Minimally displaced fracture is seen inferior pole of the patella. The patellar tendon is mildly thickened. Atherosclerosis. Small joint effusion.
--- NOTE | 2023-07-14 14:36 | RAD REPORT ---
EXAM DESCRIPTION: RAD - Knee Left 3 View - 07/14/2023 2:19 pm CLINICAL HISTORY: PAIN COMPARISON: <Comparisons> FINDINGS: Minimal nondisplaced fracture inferior pole of the patella is likely present. The patellar tendon appear is mildly thickened. Chronic bony discontinuity of the tibial tuberosity suspected. Si gnificant atherosclerosis of the popliteal artery.
--- NOTE | 2023-07-14 15:57 | RAD REPORT ---
EXAM DESCRIPTION: CT - Knee Right Wo Cont - 07/14/2023 3:25 pm CLINICAL HISTORY: effusion, rule out tibial plateau fracture Fall, trauma, pain COMPARISON: Knee Right 3 View dated 07/14/2023 FINDINGS: Slight bony fragmentation inferior pole of the patella likely related to minimal fracture. Elsewhere, no acute fracture or dislocation seen. No tibial plateau fracture seen. Small amount of joint fluid. Heavy atherosclerosis of the popliteal artery. IMPRESSION: Slight bony fragmentation inferior pole of the patella likely related to minimal fractur e. No additional fracture seen. All CT scans are performed using dose optimization technique as appropriate and may include automated exposure control or mA/KV adjustment according to patient size.
--- NOTE | 2023-07-14 16:45 | EDPHYS ---
Physician Documentation [facility] Name: Abhinav John Age: 42 yrs Sex: Male : 1980 Arrival Date: 07/14/2023 Time: 12:12 Bed 10 Private MD: ED Physician Abilio Magallon HPI: 07/14 12:57 This 42 yrs old Black Male presents to ER via Wheelchair with complaints of Knee Pain. rt 12:57 Patient presents to the ED with bilateral knee pain starting last night. Patient rt slipped off a curb, hit both of his knees, skinning the right 1. He states that he had pain immediately to the right knee, only noticed pain to the left knee this morning. Bearing weight causes pain. Denies other acute complaints at this time, other aggravating or alleviating factors. Pain is aching nature, moderate severity, no other aggravating or alleviating factors.. Historical: - Allergies: 12:30 No Known Allergies; ap3 - PMHx: 12:30 Diabetes - NIDDM; ESRD; HD M-W-F; Hypertension; ap3 - Immunization history:: Client reports receiving the 2nd dose of the Covid vaccine, Last tetanus immunization: up to date. - Social history:: Smoking status: Patient reports the use of cigarette tobacco products, smokes one pack cigarettes per day. Patient uses street drugs, marijuana. - Family history:: not pertinent. ROS: 12:57 Constitutional: Negative for fever, chills, and weight loss, Cardiovascular: Negative rt for chest pain, palpitations, and edema, Respiratory: Negative for shortness of breath, cough, wheezing, and pleuritic chest pain, Abdomen/GI: Negative for abdominal pain, nausea, vomiting, diarrhea, and constipation. 12:57 MS/extremity: Positive for abrasion, pain. Exam: 12:57 Constitutional: This is a well developed, well nourished patient who is awake, alert, rt and in no acute distress. Head/Face: Normocephalic, atraumatic. Chest/axilla: Normal chest wall appearance and motion. Nontender with no deformity. No lesions are appreciated. Cardiovascular: Regular rate and rhythm with a normal S1 and S2. No gallops, murmurs, or rubs. Normal PMI, no JVD. No pulse deficits. Respiratory: Lungs have equal breath sounds bilaterally, clear to auscultation and percussion. No rales, rhonchi or wheezes noted. No increased work of breathing, no retractions or nasal flaring. Abdomen/GI: Soft, non-tender, with normal bowel sounds. No distension or tympany. No guarding or rebound. No evidence of tenderness throughout. Neuro: Awake and alert, GCS 15, oriented to person, place, time, and situation. Cranial nerves II-XII grossly intact. Motor strength 5/5 in all extremities. Sensory grossly intact. Cerebellar exam normal. Normal gait. Psych: Awake, alert, with orientation to person, place and time. Behavior, mood, and affect are within normal limits. 12:57 Musculoskeletal/extremity: Abrasion noted to the right knee, tenderness over the medial aspect of the knee, no swelling, deformities noted. Mild tenderness diffusely over left knee.. Vital Signs: 12:29 BP 144 / 81; Pulse 90; Resp 17; Temp 97.8(O); Pulse Ox 100% on R/A; Weight 106.59 kg; ap3 Pain 9/10; 17:22 BP 154 / 99; Pulse 86; Temp 98.1; Pulse Ox 99% ; ap3 12:29 Pain Scale: Adult ap3 MDM: 12:42 Patient medically screened. rt 17:18 Differential Diagnosis Patellar fracture, tibial plateau fracture, internal rt derangement. Data reviewed: vital signs, nurses notes, radiologic studies. Management of patient was discussed with the following: Line Repairer Tower: Discussed with orthopedics on-call, recommends bilateral knee immobilizer. Recommends outpatient follow-up.. I considered the following discharge prescriptions or medication management in the emergency department Medications were administered in the Emergency Department. See MAR. Independent interpretation of the following test(s) in the Emergency Department X-Ray: My interpretation is Effusion seen on interpretation of the x-ray images. Test considered but Not performed: EKG: Denies syncopal symptoms, EKG, labs not decayed. Care significantly affected by the following chronic conditions: Chronic Kidney Disease. Counseling: I had a detailed discussion with the patient and/or guardian regarding the historical points, exam findings, and any diagnostic results supporting the discharge/admit diagnosis, the presence of at least one elevated blood pressure reading (>120/80) during this emergency department visit, radiology results. Response to treatment: the patient's symptoms have markedly improved after treatment. 07/14 12:49 Order name: Knee Left 3 View XRAY; Complete Time: 14:41 rt 07/14 12:49 Order name: Knee Right 3 View XRAY; Complete Time: 14:41 rt 07/14 15:12 Order name: Knee Right Wo Cont; Complete Time: 16:04 EDMS 07/14 16:43 Order name: Knee Immobilizer: Bilateral; Complete Time: 17:14 rt 07/14 16:43 Order name: Knee Immobilizer: Bilateral; Complete Time: 17:14 rt 07/14 16:43 Order name: Crutches; Complete Time: 17:14 rt Administered Medications: 12:52 Drug: Export PO 10 mg-325 mg 1 tabs Route: PO; ap3 14:27 Follow up: Response: No adverse reaction; Pain is decreased ap3 Disposition Summary: 07/14/23 16:45 Discharge Ordered Location: Home rt Problem: new rt Symptoms: have improved rt Condition: Stable rt Diagnosis - Bilateral patella fracture rt Followup: rt - With: Jitendra Bella MD - When: 5 - 6 days - Reason: Discharge Instructions: - Discharge Summary Sheet rt - Patellar Fracture, Adult rt Forms: - Medication Reconciliation Form rt - Thank You Letter rt - Antibiotic Education rt - Prescription Opioid Use rt - Patient Portal Instructions rt - Leadership Thank You Letter rt Signatures: Dispatcher [employer] Adrienne Sarmiento, RN RN ap3 Abilio Magallon MD MD rt Corrections: (The following items were deleted from the chart) 15:12 15:07 CT RIGHT KNEE WO CONTRAST ordered. EDMS EDMS
--- NOTE | 2023-07-14 16:45 | ER ---
Nurse's Notes [facility] Name: Abhinav John Age: 42 yrs Sex: Male : 1980 Arrival Date: 07/14/2023 Time: 12:12 Bed 10 Private MD: Diagnosis: Bilateral patella fracture Presentation: 07/14 12:29 Chief complaint: Patient states: he fell last night, and is having EMILY knee pain, with ap3 the right knee hurting worse than his left knee. patient rates the pain to be a 9/10 on the pain scale. Coronavirus screen: At this time, the client does not indicate any symptoms associated with coronavirus-19. Ebola Screen: No symptoms or risks identified at this time. Initial Sepsis Screen: Does the patient meet any 2 criteria? No. Patient's initial sepsis screen is negative. Does the patient have a suspected source of infection? No. Patient's initial sepsis screen is negative. Risk Assessment: Do you want to hurt yourself or someone else? Patient reports no desire to harm self or others. Onset of symptoms was July 13, 2023. 12:29 Method Of Arrival: Wheelchair ap3 12:29 Acuity: KASEY 4 ap3 Triage Assessment: 12:31 General: Appears uncomfortable, Behavior is calm, cooperative, appropriate for age. ap3 Pain: Complains of pain in left and right knee Pain currently is 9 out of 10 on a pain scale. Pain began 1 day ago. Neuro: Level of Consciousness is awake, alert, obeys commands, Oriented to person, place, time, situation. Cardiovascular: Patient's skin is warm and dry. Respiratory: Airway is patent Respiratory effort is even, unlabored, Respiratory pattern is regular, symmetrical. Musculoskeletal: Reports pain in left and right knee pain. Historical: - Allergies: 12:30 No Known Allergies; ap3 - PMHx: 12:30 Diabetes - NIDDM; ESRD; HD M-W-F; Hypertension; ap3 - Immunization history:: Client reports receiving the 2nd dose of the Covid vaccine, Last tetanus immunization: up to date. - Social history:: Smoking status: Patient reports the use of cigarette tobacco products, smokes one pack cigarettes per day. Patient uses street drugs, marijuana. - Family history:: not pertinent. Screenin:32 [facility] ED Fall Risk Assessment (Adult) History of falling in the last 3 months, ap3 including since admission Yes- single mechanical fall (1 pt). Abuse screen: Denies threats or abuse. Nutritional screening: No deficits noted. Tuberculosis screening: No symptoms or risk factors identified. Assessment: 14:27 Reassessment: Patient and/or family updated on plan of care and expected duration. Pain ap3 level reassessed. Patient is alert, oriented x 3, equal unlabored respirations, skin warm/dry/pink. Patient states symptoms have improved. Vital Signs: 12:29 BP 144 / 81; Pulse 90; Resp 17; Temp 97.8(O); Pulse Ox 100% on R/A; Weight 106.59 kg; ap3 Pain 9/10; 17:22 BP 154 / 99; Pulse 86; Temp 98.1; Pulse Ox 99% ; ap3 12:29 Pain Scale: Adult ap3 ED Course: 12:13 Patient arrived in ED. ts1 12:14 Abilio Magallon MD is Attending Physician. rt 12:29 Adrienne Thurman, DOMINIQUE is Primary Nurse. ap3 12:30 Triage completed. ap3 12:32 Arm band placed on right wrist. ap3 12:32 Patient has correct armband on for positive identification. Bed in low position. Call ap3 light in reach. Pulse ox on. NIBP on. 14:21 Knee Left 3 View XRAY In Process Unspecified. EDMS 14:21 Knee Right 3 View XRAY In Process Unspecified. EDMS 15:27 Knee Right Wo Cont In Process Unspecified. EDMS 16:45 Jitendra Bella MD is Referral Physician. rt 17:23 Provided Education on: crutch use and discharge information. ap3 17:23 No provider procedures requiring assistance completed. Patient did not have IV access ap3 during this emergency room visit. Administered Medications: 12:52 Drug: Natalb[place] PO 10 mg-325 mg 1 tabs Route: PO; ap3 14:27 Follow up: Response: No adverse reaction; Pain is decreased ap3 Medication: 17:23 VIS not applicable for this client. ap3 Outcome: 16:45 Discharge ordered by . rt 17:23 Discharged to home with crutches. ap3 17:23 Condition: good 17:23 Discharge instructions given to patient, Instructed on discharge instructions, follow up and referral plans. crutch walking, Demonstrated understanding of instructions, follow-up care, crutch walking. 18:07 Patient left the ED. ap3 Signatures: Dispatcher [employer] Adrienne Sarmiento RN RN ap3 Abilio Magallon MD MD rt Zoraida Camarillo, TEETEE PAS ts1
[2023-07-14 18:17] VITALS: BP 154/99; TEMP 98.1; O2SAT 99
== END 2023-07-14 18:07 | disposition home or self-care (01) ==
LOC: ER 12:12
DX: S82.091A Other fracture of right patella, initial encounter for closed fracture (principal); S82.092A Other fracture of left patella, initial encounter for closed fracture; F17.210 Nicotine dependence, cigarettes, uncomplicated
CPT/HCPCS: 73700